=== PATIENT | male | born 1965 ===

== ENCOUNTER 2020-11-09 08:15 | Day surgery (SDC) | payer OTHER, SELFPAY ==
[2020-11-03 12:49] VITALS: BMI 35.4
--- NOTE | 2020-11-08 09:06 | HO.ANESPROP2 ---
Documented by User: Shaista Ramirez 11/08/20 09:07 HPI - Anesthesia Eval Consult details Narrative: 55yo M for Upper Endoscopy and Colon[facility] Past Medical History Medical History Anxiety and depression Asthma Bilateral carpal tunnel syndrome CAD (coronary artery disease) Elevated cholesterol Fibromyalgia Herniated cervical disc Herniated lumbar intervertebral disc HTN (hypertension) Hx of migraine headaches Hx of osteoarthritis Hx of renal calculi Myocardial infarction Sleep apnea Smoker Surgical History Surgical History (Updated 11/03/20 @ 12:39 by Cesia Castro) H/O lithotripsy History of PTCA Hx of tonsillectomy Hx of umbilical hernia repair Social History Social History (Updated 11/03/20 @ 12:48 by Cesia Castro) Smoking Status: Current every day smoker Tobacco Type: Cigarette Cigarettes Per Day: 14 Years Smoked: 38 Advance Directives: No Advance Directives Information Provided: No Advance Directives on File: No Meds Allergies Allergy/AdvReac Type Severity Reaction Status Date / Time No Known Allergies Allergy Unverified 08/12/20 19:02 [No Known Allergies*] naproxen AdvReac Unknown kidney Verified 01/01/20 00:00 problems, hematuria Home Medications Medication Instructions Recorded Confirmed Type albuterol sulfate [ProAir HFA] 2 puff INHALATION Q4-6H PRN 11/03/20 11/03/20 History aspirin [Aspir-81] 81 mg PO DAILY 11/03/20 11/03/20 History ergocalciferol (vitamin D2) 1,250 mcg PO QWEEK 11/03/20 11/03/20 History [Vitamin D2] fluticasone propionate [Flovent 2 inh INHALATION BID 11/03/20 11/03/20 History Diskus] gabapentin 300 mg PO BID 11/03/20 11/03/20 History metoprolol tartrate 100 mg PO BID 11/03/20 11/03/20 History nitroglycerin 0.4 mg SUBLINGUAL Q5M PRN 11/03/20 11/03/20 History omeprazole 20 mg PO DAILY 11/03/20 11/03/20 History oxycodone-acetaminophen [Percocet] 1 tab PO Q6H PRN 11/03/20 11/03/20 History rosuvastatin 40 mg PO BEDTIME 11/03/20 11/03/20 History tamsulosin 0.4 mg PO BEDTIME 11/03/20 11/03/20 History Exam Exam Date and Time: November 08, [id number] Height,Weight and Vital Signs: Height 5 ft 3 in Weight 90.718 kg Assessment and Plan Assessment Anesthesia Assessment: Chart Reviewed Documented by User: Laure Garza 11/09/20 08:37 PMFSH Past Medical History Medical History Anxiety and depression Asthma Bilateral carpal tunnel syndrome CAD (coronary artery disease) Elevated cholesterol Fibromyalgia Herniated cervical disc Herniated lumbar intervertebral disc HTN (hypertension) Hx of migraine headaches Hx of osteoarthritis Hx of renal calculi Myocardial infarction Sleep apnea Smoker Surgical History Surgical History (Updated 11/03/20 @ 12:39 by Cesia Castro) H/O lithotripsy History of PTCA Hx of tonsillectomy Hx of umbilical hernia repair Social History Social History (Updated 11/03/20 @ 12:48 by Cesia Castro) Smoking Status: Current every day smoker Tobacco Type: Cigarette Cigarettes Per Day: 14 Years Smoked: 38 Advance Directives: No Advance Directives Information Provided: No Advance Directives on File: No Meds Allergies Allergy/AdvReac Type Severity Reaction Status Date / Time No Known Allergies Allergy Unverified 08/12/20 19:02 [No Known Allergies*] naproxen AdvReac Unknown kidney Verified 01/01/20 00:00 problems, hematuria Home Medications Medication Instructions Recorded Confirmed Type albuterol sulfate [ProAir HFA] 2 puff INHALATION Q4-6H PRN 11/03/20 11/03/20 History aspirin [Aspir-81] 81 mg PO DAILY 11/03/20 11/03/20 History ergocalciferol (vitamin D2) 1,250 mcg PO QWEEK 11/03/20 11/03/20 History [Vitamin D2] fluticasone propionate [Flovent 2 inh INHALATION BID 11/03/20 11/03/20 History Diskus] gabapentin 300 mg PO BID 11/03/20 11/03/20 History metoprolol tartrate 100 mg PO BID 11/03/20 11/03/20 History nitroglycerin 0.4 mg SUBLINGUAL Q5M PRN 11/03/20 11/03/20 History omeprazole 20 mg PO DAILY 11/03/20 11/03/20 History oxycodone-acetaminophen [Percocet] 1 tab PO Q6H PRN 11/03/20 11/03/20 History rosuvastatin 40 mg PO BEDTIME 11/03/20 11/03/20 History tamsulosin 0.4 mg PO BEDTIME 11/03/20 11/03/20 History Exam Airway Mallampati Class: II (Missing top front tooth) TM Dist: >3cm Neck ROM: Full Heart: RRR Lungs: CTA BL Assessment and Plan Assessment Anesthesia Assessment: Anesthesia Plan Discussed and Chart Reviewed Final Anesthetic Review NPO: Yes ASA Class: III Final Preanesthetic Review: Meds/Allgs Chart Reviewed and Consent Obtained/Reviewed Patient Risk: Intermediate Procedure Risk: Intermediate Anesthetic Plan Anesthetic Plan: MAC: Disposition: Standard PACU
--- NOTE | 2020-11-09 08:45 | MHC.SHP ---
Pre-Procedural Eval Section B Chief Complaint: GERD,SCREENING Details of Present Illness: 55 yo male with breakthrough GERD symptoms not well controlled with routine meds. No anemia Did not do clear liquid prep. Relevant Family History (Specify if Yes): No Relevant Social History: Tobacco Use Present Medications: see Short Stay Collaborative assessment Medical History: Significant History (Obesity, CAD, Hypertension) History of Previous Operations: No relevant previous surgery Allergies: Allergies Allergy/AdvReac Type Severity Reaction Status Date / Time No Known Allergies Allergy Unverified 08/12/20 19:02 [No Known Allergies*] naproxen AdvReac Unknown kidney Verified 01/01/20 00:00 problems, hematuria Review of Systems Sugical H&P ROS: Negative: Constitution, Respiratory, Gastrointestinal and Endocrine and Yes, Specify: Cardiovascular (CAD) Exam Surgical H&P Exam: Normal: Heart, Normal: Lungs and Normal: Extremities and Significant Findings: Abdomen (Moderated Obesity) Plan Diagnosis/Plan: Change (Colon rescheduled--did not follow prep, EGD a GO) Patient has been examined and remains a candidate for the planned procedure--EGD-yes
[2020-11-09 09:01] VITALS: BP 131/72; PULSE 66; RESP 18; TEMP 36.1; O2SAT 96; BMI 35.4
[2020-11-09 09:32] VITALS: BP 96/54; PULSE 70; RESP 14; TEMP 36.8; O2SAT 92
--- NOTE | 2020-11-09 09:32 | PM.OP ---
Brief Operative Note Date of Service: 11/09/20 Pre-op diagnosis: Break through GERD symptoms, Cigarette smoker Post-op diagnosis: other (Hiatal Hernia, erosive gastritis(antral)) Procedure: EGD with bx Implants: none Surgeon: Danna Rdz MD Anesthesia: MAC (MD Greg) Estimated blood loss (mL): 5 Pathology: other (Random Gastric) Condition: stable Disposition: PACU
[2020-11-09 09:37] VITALS: BP 100/50; PULSE 64; RESP 18; O2SAT 94
[2020-11-09 09:48] VITALS: BP 109/64; PULSE 62; RESP 19; TEMP 36.8; O2SAT 93
[2020-11-09 10:09] VITALS: BP 119/68; PULSE 58; RESP 18; O2SAT 94
--- NOTE | 2020-11-09 10:25 | HO.POSTANES ---
Post Anesthesia Evaluation Post Anesthesia Evaluation Vital Signs: Vital Signs Temp Pulse Resp BP Pulse Ox 11/09/20 10:09 58 18 119/68 94 11/09/20 09:48 98.3 F 62 19 109/64 93 11/09/20 09:37 64 18 100/50 L 94 11/09/20 09:32 98.3 F 70 14 96/54 L 92 11/09/20 09:01 97 F 66 18 131/72 96 Anesthesia: Monitored Mental Status: Awake Pain Control: Satisfactory Nausea/Vomiting: None Hydration: Adequate Anesthesia-Related Issues: No Anes. Related Issues
--- NOTE | 2020-11-10 15:52 | OP_ITS ---
SURGEON: Danna Rdz MD INDICATIONS: The patient is a 55-year-old male who presented to our office initially for colon cancer screening. He also stated that he has had chronic acid reflux, heartburn type symptoms. The only medication that used to work for him was ranitidine. He is currently on omeprazole. He says he has breakthrough symptoms despite the use of this. He is a cigarette smoker. As it turns out, he ate solid food as part of his clear liquid prep. So, the colonoscopy will be rescheduled. We will proceed with upper endoscopic evaluation. PROCEDURE PERFORMED: EGD with biopsy. ESTIMATED BLOOD LOSS: Less than 5 mL. COMPLICATIONS: No complications. ANESTHESIA: Monitored. ANESTHESIOLOGIST: Laure Garza MD ASSISTANTS: No human resource assistant. SPECIMENS: Specimens removed; random gastric. PRIMARY CARE PROVIDER: Dr. Grace POSTOPERATIVE DIAGNOSES: Hiatal hernia, erosive gastritis. LOCKSTITCH HEMMER: Danna Rdz MD. CONDITION: Postop, stable. FINDINGS: Video endoscope was introduced without difficulty. It was navigated into the posterior pharynx. There was a significant amount of soft tissue present in the posterior pharynx. I was able to get a quick view of the arytenoid cartilages, which were slightly lipomatous. Vocal cords were clear. Scope easily entered the esophagus. Esophageal mucosa was normal. No erythema was present. No ulcerations. GE junction was clear and distinct; distal tohis is a hiatal hernia. On entering the body and antrum of the stomach, there was some radiation with linear radiation of erythema from the pylorus into the antrum, focal pinpoint erosions were present in several areas. Pylorus was easily traversed. Duodenum and duodenal bulb were endoscopically normal. Periampullary area was visualized on this exam and appeared normal. Scope was withdrawn. Random gastric biopsies were obtained. PLAN: Once histology reviewed from the biopsies, we will discuss further management changes for this patient. Note, he is somewhat at risk with BMI of around 35 for ASHLEE. This must be considered as part of his baseline. I did point out to him that central obesity does play a role in GERD symptoms. This would require focus on weight reduction, which is always a difficult issue especially to discuss around holiday time. OFFICE TO RESCHEDULE COLON AGAIN WITH EMPHASIS TO WHY WE NEED A CLEAR LIQUID PREP. CONSIDER FIT TESTING TO BE SENT. GRAFT OR IMPLANTS: No grafts or implants. MD JUAN Kc/CORRINA / [id number] MTDD
== END 2020-11-09 10:45 | disposition home or self-care (01) ==
PROVIDERS: PCP Internal Medicine Geriatric Medicine; Visit Provider Internal Medicine Gastroenterology
PROC: (CPT 43239; principal; 2020-11-09 09:30)
DX: K29.60 Other gastritis without bleeding (principal); K44.9 Diaphragmatic hernia without obstruction or gangrene; K21.9 Gastro-esophageal reflux disease without esophagitis; Z79.899 Other long term (current) drug therapy; F17.210 Nicotine dependence, cigarettes, uncomplicated
CPT/HCPCS: 43239; 88305; 88342

== ENCOUNTER 2020-12-21 11:52 | Day surgery (SDC) | payer OTHER, SELFPAY ==
[2020-12-15 10:42] VITALS: BMI 35.4
--- NOTE | 2020-12-20 09:42 | HO.ANESPROP2 ---
Documented by User: Shaista Ramirez 12/20/20 10:14 HPI - Anesthesia Eval Consult details Narrative: 55yo M for Colonoscopy s/p EGD with MAC 11/09/20 [facility] [place] Past Medical History Medical History Anxiety and depression Asthma Bilateral carpal tunnel syndrome CAD (coronary artery disease) Elevated cholesterol Fibromyalgia Herniated cervical disc Herniated lumbar intervertebral disc HTN (hypertension) Hx of migraine headaches Hx of osteoarthritis Hx of renal calculi Myocardial infarction Sleep apnea Smoker Surgical History Surgical History H/O lithotripsy History of esophagogastroduodenoscopy (EGD) History of PTCA Hx of tonsillectomy Hx of umbilical hernia repair Social History Social History Are you a primary ocular care technologist to a significant other at home: No Do you presently have visiting nurse or other home services: No Smoking Status: Current every day smoker Tobacco Type: Cigarette Packs Per Day: 0.5 Cigarettes Per Day: 10.0 Years Smoked: 30 Smoked in Last 30 Days: Yes Patient Interested in Nicotine Replacement: No Patient Given Instructions on How to Stop Smoking: Yes Date Education Initiated: 12/15/20 Advance Directives: No Advance Directives Information Provided: No Advance Directives on File: No Recently lost weight without trying: No Narrative Narrative: No recent cardiac info avail. No issues with recent EGD. Meds Allergies Allergy/AdvReac Type Severity Reaction Status Date / Time naproxen AdvReac Intermediate kidney Verified 11/09/20 08:53 problems, hematuria Home Medications Medication Instructions Recorded Confirmed Type Flovent Diskus 2 inh INHALATION BID 11/03/20 12/15/20 History albuterol sulfate [ProAir HFA] 2 puff INHALATION Q4-6H PRN 11/03/20 12/15/20 History aspirin 81 mg PO DAILY 11/03/20 12/15/20 History ergocalciferol (vitamin D2) 1,250 mcg PO QWEEK 11/03/20 12/15/20 History [Vitamin D2] gabapentin 300 mg PO BID 11/03/20 12/15/20 History metoprolol tartrate 100 mg PO BID 11/03/20 12/21/20 History nitroglycerin 0.4 mg SUBLINGUAL Q5M PRN 11/03/20 12/15/20 History omeprazole 20 mg PO DAILY 11/03/20 12/15/20 History oxycodone-acetaminophen [Percocet] 1 tab PO Q6H PRN 11/03/20 12/15/20 History rosuvastatin 40 mg PO BEDTIME 11/03/20 12/15/20 History tamsulosin 0.4 mg PO BEDTIME 11/03/20 12/15/20 History Exam Exam Date and Time: December 20, 2020 0942 Height,Weight and Vital Signs: Height 5 ft 3 in Weight 90.718 kg Assessment and Plan Assessment Anesthesia Assessment: Chart Reviewed Documented by User: Lynette Betancourt 12/21/20 13:02 [facility] [place] Past Medical History Medical History Anxiety and depression Asthma Bilateral carpal tunnel syndrome CAD (coronary artery disease) Elevated cholesterol Fibromyalgia Herniated cervical disc Herniated lumbar intervertebral disc HTN (hypertension) Hx of migraine headaches Hx of osteoarthritis Hx of renal calculi Myocardial infarction Sleep apnea Smoker Surgical History Surgical History H/O lithotripsy History of esophagogastroduodenoscopy (EGD) History of PTCA Hx of tonsillectomy Hx of umbilical hernia repair Social History Social History Are you a primary ocular care technologist to a significant other at home: No Do you presently have visiting nurse or other home services: No Smoking Status: Current every day smoker Tobacco Type: Cigarette Packs Per Day: 0.5 Cigarettes Per Day: 10.0 Years Smoked: 30 Smoked in Last 30 Days: Yes Patient Interested in Nicotine Replacement: No Patient Given Instructions on How to Stop Smoking: Yes Date Education Initiated: 12/15/20 Advance Directives: No Advance Directives Information Provided: No Advance Directives on File: No Recently lost weight without trying: No Meds Allergies Allergy/AdvReac Type Severity Reaction Status Date / Time naproxen AdvReac Intermediate kidney Verified 11/09/20 08:53 problems, hematuria Home Medications Medication Instructions Recorded Confirmed Type Flovent Diskus 2 inh INHALATION BID 11/03/20 12/15/20 History albuterol sulfate [ProAir HFA] 2 puff INHALATION Q4-6H PRN 11/03/20 12/15/20 History aspirin 81 mg PO DAILY 11/03/20 12/15/20 History ergocalciferol (vitamin D2) 1,250 mcg PO QWEEK 11/03/20 12/15/20 History [Vitamin D2] gabapentin 300 mg PO BID 11/03/20 12/15/20 History metoprolol tartrate 100 mg PO BID 11/03/20 12/21/20 History nitroglycerin 0.4 mg SUBLINGUAL Q5M PRN 11/03/20 12/15/20 History omeprazole 20 mg PO DAILY 11/03/20 12/15/20 History oxycodone-acetaminophen [Percocet] 1 tab PO Q6H PRN 11/03/20 12/15/20 History rosuvastatin 40 mg PO BEDTIME 11/03/20 12/15/20 History tamsulosin 0.4 mg PO BEDTIME 11/03/20 12/15/20 History Exam Airway Mallampati Class: II TM Dist: >3cm Neck ROM: Full Heart: RRR Lungs: CTA Assessment and Plan Assessment Anesthesia Assessment: Anesthesia Plan Discussed and Chart Reviewed Final Anesthetic Review NPO: Yes ASA Class: III Final Preanesthetic Review: Meds/Allgs Chart Reviewed, Consent Obtained/Reviewed and Anes Risks/Benef Reviewed Patient Risk: Intermediate Anesthetic Plan Anesthetic Plan: MAC: Disposition: Standard PACU
[2020-12-21 12:12] VITALS: BP 135/90; PULSE 91; RESP 18; TEMP 36.2; O2SAT 95
[2020-12-21] MEDS: Lactated Ringers 1,000 ML 100 ML IVCONT (12:35)
--- NOTE | 2020-12-21 13:09 | MHC.SHP ---
Pre-Procedural Eval Section B Chief Complaint: screening Details of Present Illness: sCREENING Relevant Family History (Specify if Yes): No Relevant Social History: Tobacco Use Present Medications: see Short Stay Collaborative assessment Medical History: Significant History (OBESITY, CAD, HYPERTENSION, GERD) History of Previous Operations: No relevant previous surgery Allergies: Allergies Allergy/AdvReac Type Severity Reaction Status Date / Time naproxen AdvReac Intermediate kidney Verified 11/09/20 08:53 problems, hematuria Review of Systems Sugical H&P ROS: Negative: Constitution, Cardiovascular, Respiratory and Gastrointestinal Exam Surgical H&P Exam: Normal: HEENT, Normal: Heart, Normal: Lungs, Normal: Extremities and Normal: Abdomen Plan Diagnosis/Plan: Unchanged I have reviewed the history and physical and performed a pertinent physical examination on my patient. No changes have occurred unless specified.YES
--- NOTE | 2020-12-21 13:39 | PM.PROC ---
Brief Operative Note Date of procedure: 12/21/20 Pre-op diagnosis: Colon cancer screening Post-op diagnosis: other (Colonic polyp; Internal hemorrhoids) Procedure: COLONOSCOPY WITH EXCISIONAL POLYPECTOMY-COLD BX FORCEPS Anesthesia: MAC (MD BENITO) Surgeon: Danna Rdz Estimated blood loss (mL): 5 Pathology: other (HEPATIC FLEXURE) Condition: stable Disposition: PACU
[2020-12-21 13:43] VITALS: BP 98/49; PULSE 63; RESP 16; TEMP 36.2; O2SAT 96
[2020-12-21 13:59] VITALS: BP 119/67; PULSE 64; RESP 16; TEMP 36.2; O2SAT 97
--- NOTE | 2020-12-24 01:10 | OP_ITS ---
SURGEON: Danna Rdz MD PREOPERATIVE DIAGNOSIS: Colon cancer screenig POSTOPERATIVE DIAGNOSIS: Colon polyp, 1+ internal hemorrhoids with perianal prolapse noted of skin tags. PROCEDURE PERFORMED: Colonoscopy with excisional polypectomies using cold biopsy forceps. ESTIMATED BLOOD LOSS: Less than 10 mL. COMPLICATIONS: No complications. ANESTHESIA: Monitored. ANESTHESIOLOGIST: Lynette Betancourt MD ASSISTANTS: No account assistant. SPECIMENS: Specimens removed, hepatic flexure polyp. PRIMARY CARE PROVIDER: Dr. Grace SHIPPING/RECEIVING MANAGER: Dr. Rdz. CONDITION: Postop, stable. FINDINGS: Digital rectal exam, prostate was normal to digital palpation. Video colonoscope was introduced without difficulty, navigated into the rectosigmoid area. The prep was fair to good in some areas. Scope was slowly advanced through sigmoid, descending, transverse colon. In the hepatic flexure, polyp was identified. It was removed excisionally. Scope traversed into the cecum. Appendiceal orifice was seen. Ileocecal valve was well seen. No mucosal abnormalities were appreciated. Slow withdrawal of scope, good rotational views, no additional lesions were seen, a slight prolapse at the anorectal verge. There were 1+ internal hemorrhoids noted. PLAN AND CURRENT RECOMMENDATIONS: Repeat asymptomatic screening in this patient will be 5 years. I would suggest the 2-day prep unless other options are available at that time. GRAFT OR IMPLANTS: No grafts or implants. Danna Rdz MD MEN/MODL / [id number] MTDD
== END 2020-12-21 14:50 ==
LOC: HO.SSS 11:53
PROVIDERS: PCP Internal Medicine Geriatric Medicine; Visit Provider Internal Medicine Gastroenterology
PROC: 0DJD8ZZ Inspection of Lower Intestinal Tract, Via Natural or Artificial Opening Endoscopic (ICD-10-PCS; CPT 45378; principal; 2020-12-21 11:30)
DX: Z12.11 Encounter for screening for malignant neoplasm of colon (principal); K63.5 Polyp of colon; K64.8 Other hemorrhoids; K62.1 Rectal polyp; K64.4 Residual hemorrhoidal skin tags; I10 Essential (primary) hypertension; J45.909 Unspecified asthma, uncomplicated; G47.30 Sleep apnea, unspecified; I25.10 Atherosclerotic heart disease of native coronary artery without angina pectoris; Z98.61 Coronary angioplasty status; I25.2 Old myocardial infarction; F17.210 Nicotine dependence, cigarettes, uncomplicated; Z79.82 Long term (current) use of aspirin; Z79.51 Long term (current) use of inhaled steroids; Z79.899 Other long term (current) drug therapy; Z88.8 Allergy status to other drugs, medicaments and biological substances
CPT/HCPCS: 45380; 88305

== ENCOUNTER → 2021-01-18 13:01 | Outpatient (BNVA) | payer OTHER, SELFPAY | PROVIDERS: PCP Internal Medicine Geriatric Medicine; Visit Provider Physician Assistant ==

== ENCOUNTER → 2022-05-04 13:01 | Outpatient (BNVA) | payer MEDICAID, SELFPAY | PROVIDERS: PCP Internal Medicine Geriatric Medicine; Referring Provider Internal Medicine Geriatric Medicine; Visit Provider Internal Medicine Cardiovascular Disease | DX: R07.9 Chest pain, unspecified (principal); I25.10 Atherosclerotic heart disease of native coronary artery without angina pectoris; Z72.0 Tobacco use | CPT/HCPCS: 93005; 99202 ==

== ENCOUNTER → 2022-06-07 08:50 | Outpatient (REF) | payer MEDICAID, SELFPAY ==
--- NOTE | ~2022-06-07 | NM_ITS ---
Myocardial perfusion study Indication: Chest pain to evaluate for myocardial ischemia Technique: The patient was brought in for a Lexiscan perfusion study on 06/07/2022. Patient performed low-level exercise and was injected 0.4 mg of Lexiscan intravenously. Within a minute of injection, 35 mCi of sestamibi was given intravenously. Images were obtained using the SPECT gamma camera interlaced with the gating device. Images were obtained in supine position. Resting perfusion study was performed on 06/08/2002. Patient was administered 35 mCi of sestamibi intravenously at rest. Images were then obtained in supine position. Images obtained with and without CT attenuation. Total DLP 118 mGy-cm. Images were processed with the software and compared side to side in short axis, horizontal long axis and vertical long axis views. Findings: The stress perfusion study showed non attenuated images show mildly reduced uptake in the basal inferior wall of the LV myocardium. Remainder of the LV myocardium is normally perfused. Attenuation corrected images show minimally reduced uptake in the apex of the LV myocardium.. The gated study shows normal LV systolic function with calculated LVEF of 66%. LV cavity is normal in size. The gated study shows normal systolic wall thickening and contraction of segments. Resting study shows no change in perfusion pattern compared to stress perfusion study. Gating at rest reveals normal systolic wall motion with ejection fraction at greater than 60%. The findings are consistent with normal myocardial perfusion. NM/NM cardiolite stress test Impression: 1. Myocardial perfusion imaging study shows normal myocardial perfusion 2. Gated LVEF is 66% 3. Transient ischemic dilatation not present EKG is nondiagnostic for ischemia
--- NOTE | 2022-06-07 09:00 | CA_ITS ---
Acquisition Time: 2022-06-07 09:12:49 Total Exercise Time: 00:06:27 Test Indications: Chest Pain Medications: SEE H Protocol: MOD JULIO C Max HR: 095 BPM 57% of Pred: 166 BPM Max BP: 124/070 mmHG Max Work Load: 4.5 METS Started modified stress test using Julio C protocol, however patient walked for 6 minutes and 27 sec and his HR was not increasing above 50 % and pt c/o R hip pain. Test changed to Lexiscan. Pt tolerated well, denies any anginal sx. EKG with no arrhythmias, non-diagnostic for ischemia. Nuclear images to follow. Normotensive response to test. Test reviewed with Dr. Rosales Referred By: Cornelius Chavez Overread By: Kenia Butler NP
== END ==
LOC: HO.CARD 08:50
PROVIDERS: PCP Internal Medicine Geriatric Medicine; Visit Provider Internal Medicine Cardiovascular Disease
DX: R07.9 Chest pain, unspecified (principal); I25.10 Atherosclerotic heart disease of native coronary artery without angina pectoris
CPT/HCPCS: 78452; 93017; A9500; J0280; J2785

== ENCOUNTER 2022-06-28 12:07 | Outpatient (REF) | payer MEDICAID, SELFPAY ==
[2022-06-28 12:32] LABS: MANUAL DIFF FLAG NO
[2022-06-28 12:38] LABS: Basophils Absolute Auto 0.1 X10*3/uL (0.0-0.2); Basophils Percent Auto 0.5 % (0-2); Eosinophils Absolute Auto 0.2 X10*3/uL (0.0-0.4); Eosinophils Percent Auto 2.3 % (0-4); Hematocrit 42.4 % (42.0-52.0); Hemoglobin 13.9 g/dl (14.0-18.0); Imm Gran Abs Auto 0.04 X10*3/uL (0.00-0.03); Imm Gran Pct Auto 0.4 % (0.0-0.4); Lymphocytes Absolute Auto 2.4 X10*3/uL (1.2-4.9); Mean Corpuscular HGB Conc 32.8 g/dl (31.0-36.0); Mean Corpuscular Hemoglobin 29.2 pg (27.0-33.0); Mean Corpuscular Volume 89.1 fL (80.0-98.0); Mean Platelet Volume 10.7 fL (9.4-12.4); Monocytes Absolute Auto 0.7 X10*3/uL (0.1-1.2); Monocytes Percent Auto 7.5 % (2-11); Neutrophils Absolute Auto 6.1 x10*3/uL (2.0-8.3); Neutrophils Percent Auto 64.3 % (45-73); Platelet Count 283 X10*3/uL (160-400); Red Blood Count 4.76 X10*6/uL (4.60-5.80); Red Cell Distribution Width 14.1 % (11.0-16.0); White Blood Count 9.4 X10*3/uL (4.8-10.8)
[2022-06-28 13:57] LABS: Anion Gap 11 (12-20); Blood Urea Nitrogen 13 mg/dL (9-16); Calcium 8.8 mg/dL (8.4-10.2); Carbon Dioxide 21 mmol/L (22-29); Chloride 111 mmol/L (96-108); Estimated Glomerular Filt Rate > 60; Glucose Random 105 mg/dL (60-115); Potassium 4.2 mmol/L (3.3-5.1); Sodium 139 mmol/L (135-145)
[2022-06-28 14:10] LABS: Estimated Average Glucose 114 mg/dL; Hemoglobin A1c % 5.6 %
== END 2022-06-28 12:08 | disposition home or self-care (01) ==
LOC: HO.LAB 12:07
PROVIDERS: Absent Provider Internal Medicine Geriatric Medicine; PCP Internal Medicine Geriatric Medicine; Visit Provider Internal Medicine Cardiovascular Disease
DX: R07.9 Chest pain, unspecified (principal); I25.10 Atherosclerotic heart disease of native coronary artery without angina pectoris; R73.03 Prediabetes
CPT/HCPCS: 36415; 80048; 83036; 85025

== ENCOUNTER 2022-07-14 15:53 | Outpatient (REF) | payer MEDICAID, SELFPAY ==
[2022-07-14 16:34] LABS: INTERNATIONAL NORM RATIO 0.9 (0.9-1.1); Prothrombin Time 10.6 SEC (10.0-13.1)
== END 2022-07-14 15:54 | disposition home or self-care (01) ==
LOC: HO.LAB 15:53
PROVIDERS: PCP Internal Medicine Geriatric Medicine; Visit Provider Internal Medicine Cardiovascular Disease
DX: R07.9 Chest pain, unspecified (principal); I25.10 Atherosclerotic heart disease of native coronary artery without angina pectoris
CPT/HCPCS: 36415; 85610

== ENCOUNTER → 2022-07-26 13:41 | Outpatient (BNVA) | payer MEDICAID, SELFPAY ==
[2021-07-12 09:11] VITALS: BP 100/62
== END ==
PROVIDERS: PCP Internal Medicine Geriatric Medicine; Referring Provider Internal Medicine Geriatric Medicine; Visit Provider Internal Medicine Cardiovascular Disease
DX: I20.8 Other forms of angina pectoris (principal); F17.210 Nicotine dependence, cigarettes, uncomplicated; Z79.82 Long term (current) use of aspirin
CPT/HCPCS: 99212

== ENCOUNTER → 2022-11-22 10:55 | Outpatient (BNVA) | payer MEDICAID, SELFPAY | PROVIDERS: PCP Internal Medicine Geriatric Medicine; Referring Provider Internal Medicine Geriatric Medicine; Visit Provider Internal Medicine Cardiovascular Disease | DX: I25.118 Atherosclerotic heart disease of native coronary artery with other forms of angina pectoris (principal); F17.210 Nicotine dependence, cigarettes, uncomplicated; Z79.02 Long term (current) use of antithrombotics/antiplatelets; Z79.82 Long term (current) use of aspirin | CPT/HCPCS: 99212 ==

== ENCOUNTER 2023-04-25 09:32 | Outpatient (REF) | payer MEDICAID, SELFPAY ==
--- NOTE | ~2023-04-25 | XR_ITS ---
EXAMINATION: XR CERVICAL SPINE CLINICAL INFORMATION: Neck pain and radiculopathy COMPARISON: None available. TECHNIQUE: 6 views of the cervical spine, inclusive of bilateral oblique and swimmer's views, were obtained. FINDINGS: Bone alignment is normal. No fracture or dislocation. Degenerative spondylosis from C3-C4 to C6-C7. Normal disc spaces. Right-sided neuroforaminal narrowing from bony osteophyte from C4-C5 to C6-C7. Left-sided neuroforaminal narrowing from bony osteophyte from C3-C4 to C5 6. Prevertebral soft tissues are normal. XR/XR cervical spine 5V IMPRESSION: Multilevel degenerative changes.
== END 2023-04-25 09:33 | disposition home or self-care (01) ==
LOC: HO.XRAY 09:32
PROVIDERS: PCP Internal Medicine Geriatric Medicine; Visit Provider Internal Medicine Geriatric Medicine
DX: R20.2 Paresthesia of skin (principal); M54.2 Cervicalgia
CPT/HCPCS: 72050

== ENCOUNTER → 2023-05-24 15:31 | Outpatient (BNVA) | payer MEDICAID, SELFPAY ==
[2021-07-12 09:11] VITALS: BP 100/62
== END ==
PROVIDERS: PCP Internal Medicine Geriatric Medicine; Visit Provider Internal Medicine Cardiovascular Disease
DX: I20.8 Other forms of angina pectoris (principal); Z72.0 Tobacco use
CPT/HCPCS: 99212

== ENCOUNTER 2023-05-25 14:47 | Outpatient (REF) | payer MEDICAID, SELFPAY ==
--- NOTE | ~2023-05-25 | MR_ITS ---
EXAMINATION: MR LUMBAR SPINE WITHOUT CONTRAST CLINICAL INFORMATION: Low back pain. COMPARISON: None available. TECHNIQUE: Multiplanar, multisequence imaging was obtained. FINDINGS: VERTEBRAL BODIES AND PARASPINAL STRUCTURES: The marrow signal is within normal limits. There is [id number] disc space narrowing with anterior endplate spurring partially visualized on sagittal imaging at the T10-T11 and T11-T12 levels. Left posterolateral disc bulge with facet arthropathy at the T10-T11 level results in significant left foraminal encroachment, only partially visualized. There are no compression fractures or subluxations. The paraspinal soft tissues appear normal. There are mild degenerative changes of the sacroiliac joints bilaterally. CONUS MEDULLARIS AND CAUDA EQUINE: The distal cord, conus tip, and cauda equina nerve roots appear normal. SPINAL LEVELS: L1-L2: Mild posterior disc bulge and mild facet arthropathy. Bulging disc mildly impresses upon the ventral thecal sac. No central canal stenosis or foraminal narrowing. L2-L3: Left posterolateral disc protrusion visible with mild impression upon the exiting left L2 nerve root. No central canal stenosis. L3-L4: Broad-based disc bulge without central canal stenosis. Bulging disc posterolaterally on both sides impresses upon the exiting L3 nerve roots. Moderate right and [id number] left foraminal narrowing. L4-L5: Generalized disc bulge and mild facet arthropathy without central canal stenosis. Bulging disc contributes to moderate bilateral foraminal encroachment and mild impression upon the exiting L4 nerve roots. L5-S1: Mild disc bulge with a posterior annular fissure which mildly impresses upon the right S1 nerve root. Mild facet arthropathy. No central canal stenosis or foraminal narrowing. MR/MR lumbar spine wo con IMPRESSION: 1. Left posterolateral disc protrusion at the L2-L3 level with mild impression upon the left L2 nerve root. 2. Broad-based disc bulge at the L3-L4 level with bulging disc impressing upon both exiting L3 nerve roots. Moderate right foraminal narrowing. 3. Disc bulge at the L4-L5 level with moderate bilateral foraminal encroachment and mild impression upon the exiting L4 nerve roots. 4. Posterior annular fissure at the L5-S1 level mildly impressing upon the right S1 nerve root. 5. Moderate degenerative disc disease at the T10-T11 and T11-T12 levels with significant left foraminal encroachment at the T10-T11 level.
== END 2023-05-25 14:48 | disposition home or self-care (01) ==
LOC: HO.MRI 14:47
PROVIDERS: PCP Internal Medicine Geriatric Medicine; Visit Provider Internal Medicine Geriatric Medicine
DX: M54.50 Low back pain, unspecified (principal); M79.605 Pain in left leg
CPT/HCPCS: 72148

== ENCOUNTER 2023-06-06 14:14 | Outpatient (AMB) | payer MEDICAID, SELFPAY ==
--- NOTE | 2023-06-06 14:39 | MHC.OFFVIS ---
Intake Vital Signs 06/06/23 14:40 Height 5 ft 3 in Weight 200 lb 9.93 oz BMI 35.5 BP 130/80 Blood Pressure Location Rt brachial Position Sitting Pulse 88 Pulse Source Pulse Oximeter Pulse Oximetry (%) 98 Oxygen Delivery Method Room Air Intake Visit Reasons: Cough Intake Note: New patient today with family hx of lung cancer in mother who would like to be checked. Patient is a long time smoker of 40+ years. He does note a productive cough for white to yellow sputum often. He also notes SOB with walking up stairs or carrying heavy things.Patient also reports he snores per his . Valve Pipe Irrigator Required: No Tool Tender: Tool Tender offered & declined Accompanied by: Self / Same As Patient Allergies naproxen Adverse Reaction (Intermediate, Verified 06/06/23 14:52) kidney problems, hematuria Medication List - Last Reconciled 06/06/23 by Valerie Berumen LPN amlodipine 2.5 mg PO DAILY aspirin 81 mg PO DAILY atorvastatin 80 mg PO DAILY baclofen 10 mg PO BID clopidogrel 75 mg PO DAILY ergocalciferol (vitamin D2) (Vitamin D2) 1,250 mcg PO QWEEK ezetimibe 10 mg PO QAM fluticasone propionate 100 mcg/actuation (Flovent Diskus) 2 inhalations inhalation BID gabapentin 300 mg PO BID hydrocortisone 2.5% (Proctozone-HC) 1 appl [place] BID PRN isosorbide mononitrate ER 60 mg PO DAILY metoprolol tartrate 100 mg PO BID 90 days naloxone 4 mg/actuation 0 sprays intranasal nicotine (polacrilex) 4 mg PO nitroglycerin 0.4 mg sublingual Q5M PRN oxycodone-acetaminophen 5-325 mg (Percocet) 1 tab PO Q6H PRN pantoprazole 20 mg PO DAILY simethicone (Gas Relief (simethicone)) 125 mg PO TID-QID PRN tamsulosin 0.4 mg PO BEDTIME HPI Cough HPI Details Trenton is a pleasant 57 year male current 1/2 ppd smoker with a 40+ pack year history, with underlying asthma and CAD s/p stents followed by cardiology. He presents today for pulmonary evaluation. He is currently on Flovent and albuterol MDI with suboptimal effect. He reports intermittent wheezing, dyspnea on exertion and nonproductive cough. He did have childhood asthma and denies any intubations. He also reports daytime somnolence, loud snoring and paroxysmal nocturnal dyspnea. He denies prior sleep study.His mother had lung cancer, smoker, and sisters with asthma. He denies any environmental allergies. 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 [facility] Medical History Acid reflux Anxiety and depression Asthma Bilateral carpal tunnel syndrome CAD (coronary artery disease) Elevated cholesterol Fibromyalgia Hemorrhoids Herniated cervical disc Herniated lumbar intervertebral disc HTN (hypertension) Hx of migraine headaches Hx of osteoarthritis Hx of renal calculi Myocardial infarction Sleep apnea Smoker Surgical History H/O lithotripsy History of cardiac cath History of esophagogastroduodenoscopy (EGD) History of PTCA Hx of tonsillectomy Hx of umbilical hernia repair Family History Mother Lung cancer Father Prostate cancer Social History (Updated 06/06/23 @ 14:55 by Valerie Berumen LPN) Household Members: Significant Other Are you a primary wound care specialist to a significant other at home: No Do you presently have visiting nurse or other home services: No Alcohol intake: current Alcohol intake frequency: holidays/special occasions only Patient Tobacco Use Status: Current everyday Tobacco user Tobacco use type: Cigarette Cigarette Packs Per Day: 0.5 Cigarettes Per Day: 10.0 Years Smoked: 30 +/- Current occupational status: employed 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 Review of Systems Const Denies chills, Denies excessive sweating, Denies fever(s), Denies headache(s) and Denies night sweats Eyes Denies dry eyes, Denies irritation and Denies itchy eyes ENT Reports Normal hearing present, Denies headache(s), Denies nasal congestion, Denies nasal discharge, Denies post nasal drip and Denies sore throat Card Denies chest pain, Denies chest pain at rest, Denies chest pain with activity, Denies claudication, Denies leg edema and Denies orthopnea Resp Denies excessive phlegm production, Denies pain on inspiration, Denies pain with cough and Denies stridor Musc Denies myalgias Neuro Reports Normal hearing present and Denies headache(s) Endo Denies excessive sweating Lino/Lymph Denies lymphadenopathy Aller/Immun Denies itchy eyes and Denies seasonal rhinorrhea Physical Exam Vital Signs: Last Vital Signs Pulse 88 06/06/23 14:40 BP 130/80 06/06/23 14:40 Pulse Ox 98 06/06/23 14:40 Oxygen Delivery Method Room Air 06/06/23 14:40 BMI result Body Mass Index 35.5 Const General: cooperative, healthy appearing, comfortable, no acute distress, well developed and alert Nutritional Appearance: obese Orientation/consciousness: patient oriented x3 Limitations: no limitations HEENT Head: Yes normal to inspection, Yes normocephalic and Yes atraumatic Ears: hearing grossly normal bilaterally and external ears normal Eyes General: appearance normal, both eyes and all related structures Eyelids: Yes eyelids normal Sclerae: sclerae normal EOM: EOMs intact bilaterally Neck Neck: Yes normal visual inspection and Yes no lymphadenopathy Lymphatic: no lymphadenopathy noted Chest Chest palpation & inspection: normal inspection of the chest Resp Effort & Inspection: normal respiratory effort, able to speak in complete sentences, no audible wheezes, no cough, no stridor, not tachypneic, no tripod positioning and no use of accessory muscles Auscultation: clear to auscultation bilaterally Cardio Jugular venous distension: no JVD Rate: regular rate Rhythm: regular rhythm Skin Other: warm, dry General skin exam: no rashes or lesions noted Neuro General: patient oriented x3 Cranial nerves: Yes Normal hearing present Cognition (Neuro): normal cognition Gait exam (Neuro): Normal gait present Extrem General: Yes normal to inspection, Yes capillary refill normal, Yes no clubbing, cyanosis or edema and Yes no pedal edema Psych Appearance: grossly normal and well kempt Speech and movement: Normal speech and movement present and Clear speech present Affect: normal affect Attitude: cooperative Thought process: Normal thought process present Thought content: Normal thought content present Insight: Good insight present (Psych) Judgement: Good judgement present (Psych) Assessment & Plan Assessment & Plan (1) COPD (chronic obstructive pulmonary disease): Code(s): J44.9 - Chronic obstructive pulmonary disease, unspecified (2) Tobacco abuse: Code(s): Z72.0 - Tobacco use (3) Daytime somnolence: Code(s): R40.0 - Somnolence Plan Trenton's symptoms are consistent with asthma/COPD given his smoking history. Unknown severity, will send for PFT and chest CT. Will switch Flovent to ICS/LABA and send in albuterol PRN. Inhaler technique reviewed. Patient with symptoms consistent with sleep apnea, PND, loud snoring and daytime somnolence, will send for home sleep study to evaluate. All questions were answered and patient in agreement of plan. Will follow up to review results. Orders: Orders PFT pulmonary function test Today J44.9 - Chronic obstructive pulmonary disease, unspecified CT chest wo IV con Today J44.9 - Chronic obstructive pulmonary disease, unspecified, Z72.0 - Tobacco use RT home sleep study Today R06.83 - Snoring, R40.0 - Somnolence Medications: New fluticasone propion-salmeterol 115-21 mcg/actuation (Advair HFA) 2 puffs inhalation Q12H 12 grams 3RF levalbuterol tartrate 45 mcg/actuation 1 puff inhalation Q4-6H PRN 15 grams 3RF shortness of breath Coding Level of Care Code New Pt Level 4 (96528) Diagnoses COPD (chronic obstructive pulmonary disease) J44.9 Tobacco abuse Z72.0 Daytime somnolence R40.0
[2023-06-06 14:40] VITALS: BP 130/80; PULSE 88; O2SAT 98; BMI 35.5
== END 2023-06-06 15:15 | disposition home or self-care (01) ==
PROVIDERS: PCP Internal Medicine Geriatric Medicine; Visit Provider Nurse Practitioner Family
DX: J44.9 Chronic obstructive pulmonary disease, unspecified (principal); Z72.0 Tobacco use; R40.0 Somnolence
CPT/HCPCS: 99204

== ENCOUNTER → 2023-06-06 14:14 | Outpatient (BNVA) | payer MEDICAID, SELFPAY ==
[2021-07-12 09:11] VITALS: BP 100/62
== END ==
PROVIDERS: PCP Internal Medicine Geriatric Medicine; Visit Provider Nurse Practitioner Family
DX: J44.9 Chronic obstructive pulmonary disease, unspecified (principal); R06.83 Snoring; R40.0 Somnolence; Z72.0 Tobacco use; Z98.890 Other specified postprocedural states; Z95.5 Presence of coronary angioplasty implant and graft; Z80.1 Family history of malignant neoplasm of trachea, bronchus and lung
CPT/HCPCS: 99204

== ENCOUNTER 2023-06-13 13:11 | Outpatient (REF) | payer MEDICAID, SELFPAY ==
--- NOTE | 2023-06-13 14:11 | PFT_ITS ---
FLOWS: 1. FEV1 76% of predicted at 2.19 L. 2. FVC 72% of predicted at 2.70 L. 3. FEV1 to FVC ratio of 0.81. 4. No bronchodilator response. LUNG VOLUMES: 1. Total lung capacity 85% of predicted at 4.76 L. 2. Residual volume 115% of predicted at 2.05 L. 3. Slow vital capacity 71% of predicted at 2.71 L. 4. Expiratory reserve volume 52% of predicted at 0.52 L. 5. Diffusion capacity is normal. IMPRESSION: No obstructive or restrictive ventilatory defect. No bronchodilator response. Decreased expiratory reserve volume suggests extrathoracic restriction likely secondary to abdominal obesity. Javier Silver MD AP/MODL / [id number]
== END 2023-06-13 13:12 | disposition home or self-care (01) ==
LOC: HO.RESP 13:11
PROVIDERS: PCP Internal Medicine Geriatric Medicine; Visit Provider Nurse Practitioner Family
DX: J44.9 Chronic obstructive pulmonary disease, unspecified (principal)
CPT/HCPCS: 94060; 94727; 94729

== ENCOUNTER → 2023-06-13 14:11 | Outpatient (BNV) | payer MEDICAID, SELFPAY | PROVIDERS: PCP Internal Medicine Geriatric Medicine; Visit Provider Internal Medicine Pulmonary Disease | DX: J44.9 Chronic obstructive pulmonary disease, unspecified (principal) | CPT/HCPCS: 94060; 94727; 94729 ==

== ENCOUNTER 2023-07-03 14:34 | Outpatient (REF) | payer MEDICAID, SELFPAY ==
--- NOTE | ~2023-07-03 | CT_ITS ---
EXAMINATION: CT CHEST WITHOUT CONTRAST CLINICAL INFORMATION: COPD COMPARISON: None available. TECHNIQUE: Multidetector volumetric CT imaging of the chest was done. Axial MIP volume rendering provided. Sagittal and coronal reformatted images were obtained. This CT examination was performed using dose optimization techniques as appropriate, variously including the following: *Automated exposure control *Adjustment of mA and/or kV according to patient size (this includes techniques or standardized protocols for targeted exams where dose is matched to indication/reason for exam; i.e. extremities or head) *Use of iterative reconstruction technique DLP: 224 mGy-cm FINDINGS: HOT DIP TINNING SUPERVISOR: Unremarkable LUNGS: There is centrilobular emphysema with some pleural cystic spaces seen multiple apical 0.2 - 0.5 cm lung nodules seen seen bilaterally with the largest in the left upper lobe posterior image 37/203 measured 0.3 cm and the largest on the right on image 29 measured 0.5 cm. There is 6 cm bleb seen in the right middle lobe paracardiac. Central airways are patent MEDIASTINUM: The mediastinum is normal. CORONARY ARTERY CALCIFICATION: Heavily calcified coronary arteries present. PLEURA: There is no pleural effusion. No pleural mass or thickening. AXILLA: No lymphadenopathy. UPPER ABDOMEN: Unremarkable. OSSEOUS STRUCTURES: Unremarkable. CT/CT chest wo IV con IMPRESSION: 1. Centrilobular emphysema and multiple small lung nodules. 2. Heavily calcified coronary arteries. Fleischner guidelines were followed.
== END 2023-07-03 14:35 | disposition home or self-care (01) ==
LOC: HO.CT 14:34
PROVIDERS: PCP Internal Medicine Geriatric Medicine; Visit Provider Nurse Practitioner Family
DX: J44.9 Chronic obstructive pulmonary disease, unspecified (principal); Z72.0 Tobacco use
CPT/HCPCS: 71250

== ENCOUNTER → 2023-07-12 14:32 | Outpatient (REF) | payer MEDICAID, SELFPAY | LOC: HO.SL 14:32 | PROVIDERS: PCP Internal Medicine Geriatric Medicine; Visit Provider Nurse Practitioner Family | DX: G47.33 Obstructive sleep apnea (adult) (pediatric) (principal); R40.0 Somnolence; R06.83 Snoring | CPT/HCPCS: 95806 ==

== ENCOUNTER → 2023-07-12 14:43 | Outpatient (BNV) | payer MEDICAID, SELFPAY ==
[2021-07-12 09:11] VITALS: BP 100/62
== END ==
PROVIDERS: PCP Internal Medicine Geriatric Medicine; Visit Provider Internal Medicine
DX: G47.33 Obstructive sleep apnea (adult) (pediatric) (principal)
CPT/HCPCS: 95806

== ENCOUNTER 2023-07-25 13:45 | Outpatient (AMB) | payer MEDICAID, SELFPAY ==
[2023-07-25 14:29] VITALS: BP 124/72; PULSE 64; O2SAT 96; BMI 35.7
--- NOTE | 2023-07-25 14:29 | A.OFFVIS_ITS ---
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 Required: No Geodetic Survey Director: Geodetic Survey Director offered & declined Accompanied by: Self / Same As Patient Allergies naproxen Adverse Reaction (Intermediate, Verified 07/25/23 14:33) kidney problems, hematuria Medication List - Last Reconciled 07/25/23 by Valerie Berumen LPN amlodipine 2.5 mg PO DAILY aspirin 81 mg PO DAILY atorvastatin 80 mg PO DAILY baclofen 10 mg PO BID clopidogrel 75 mg PO DAILY ergocalciferol (vitamin D2) (Vitamin D2) 1,250 mcg PO QWEEK ezetimibe 10 mg PO QAM fluticasone propion-salmeterol 115-21 mcg/actuation (Advair HFA) 2 puffs inhalation Q12H fluticasone propionate 100 mcg/actuation (Flovent Diskus) 2 inhalations inhalation BID gabapentin 300 mg PO BID hydrocortisone 2.5% (Proctozone-HC) 1 appl [place] BID PRN isosorbide mononitrate ER 60 mg PO DAILY levalbuterol tartrate 45 mcg/actuation 1 puff inhalation Q4-6H PRN metoprolol tartrate 100 mg PO BID 90 days naloxone 4 mg/actuation 0 sprays intranasal nicotine (polacrilex) 4 mg PO nitroglycerin 0.4 mg sublingual Q5M PRN oxycodone-acetaminophen 5-325 mg (Percocet) 1 tab PO Q6H PRN pantoprazole 20 mg PO DAILY simethicone (Gas Relief (simethicone)) 125 mg PO TID-QID PRN tamsulosin 0.4 mg PO BEDTIME HPI Cough HPI Details Trenton is a pleasant 57 year male current 1/2 ppd smoker with a 40+ pack year history, with underlying asthma/COPD overlap and CAD s/p stents followed by cardiology. At the last visit he was switched from Flovent to Advair HFA with significant improvements in his dyspnea and cough. He reports nasal congestion that has been most troublesome. He denies any use of nasal sprays. Today he presents to review results of PFT, chest CT and home sleep study. PFSH Medical History Acid reflux Anxiety and depression Asthma Bilateral carpal tunnel syndrome CAD (coronary artery disease) Elevated cholesterol Fibromyalgia Hemorrhoids Herniated cervical disc Herniated lumbar intervertebral disc HTN (hypertension) Hx of migraine headaches Hx of osteoarthritis Hx of renal calculi Myocardial infarction Sleep apnea Smoker Surgical History H/O lithotripsy History of cardiac cath History of esophagogastroduodenoscopy (EGD) History of PTCA Hx of tonsillectomy Hx of umbilical hernia repair Family History Mother Lung cancer Father Prostate cancer Social History (Updated 07/25/23 @ 14:35 by Valerie Berumen LPN) Household Members: Significant Other Are you a primary wound care specialist to a significant other at home: No Do you presently have visiting nurse or other home services: No Alcohol intake: current Alcohol intake frequency: holidays/special occasions only Patient Tobacco Use Status: Current everyday Tobacco user Tobacco use type: Cigarette Cigarette Packs Per Day: 0.5 Cigarettes Per Day: 10.0 Years Smoked: 30 +/- Current occupational status: employed 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 Review of Systems Const Denies chills, Denies excessive sweating, Denies fever(s), Denies headache(s) and Denies night sweats Eyes Denies dry eyes, Denies irritation and Denies itchy eyes ENT Reports Normal hearing present, Denies headache(s), Denies nasal congestion, Denies nasal discharge, Denies post nasal drip and Denies sore throat Card Denies chest pain, Denies chest pain at rest, Denies chest pain with activity, Denies claudication, Denies leg edema and Denies orthopnea Resp Denies excessive phlegm production, Denies pain on inspiration, Denies pain with cough and Denies stridor Musc Denies myalgias Neuro Reports Normal hearing present and Denies headache(s) Endo Denies excessive sweating Lino/Lymph Denies lymphadenopathy Aller/Immun Denies itchy eyes and Denies seasonal rhinorrhea Physical Exam Vital Signs: Last Vital Signs Pulse 64 07/25/23 14:29 BP 124/72 07/25/23 14:29 Pulse Ox 96 07/25/23 14:29 Oxygen Delivery Method Room Air 07/25/23 14:29 BMI result Body Mass Index 35.7 Const General: cooperative, healthy appearing, comfortable, no acute distress, well developed and alert Nutritional Appearance: obese Orientation/consciousness: patient oriented x3 Limitations: no limitations HEENT Head: Yes normal to inspection, Yes normocephalic and Yes atraumatic Ears: hearing grossly normal bilaterally and external ears normal Eyes General: appearance normal, both eyes and all related structures Eyelids: Yes eyelids normal Sclerae: sclerae normal EOM: EOMs intact bilaterally Neck Neck: Yes normal visual inspection and Yes no lymphadenopathy Lymphatic: no lymphadenopathy noted Chest Chest palpation & inspection: normal inspection of the chest Resp Effort & Inspection: normal respiratory effort, able to speak in complete sentences, no audible wheezes, no cough, no stridor, not tachypneic, no tripod positioning and no use of accessory muscles Auscultation: clear to auscultation bilaterally Cardio Jugular venous distension: no JVD Rate: regular rate Rhythm: regular rhythm Skin Other: warm, dry General skin exam: no rashes or lesions noted Neuro General: patient oriented x3 Cranial nerves: Yes Normal hearing present Cognition (Neuro): normal cognition Gait exam (Neuro): Normal gait present Extrem General: Yes normal to inspection, Yes capillary refill normal, Yes no clubbing, cyanosis or edema and Yes no pedal edema Psych Appearance: grossly normal and well kempt Speech and movement: Normal speech and movement present and Clear speech present Affect: normal affect Attitude: cooperative Thought process: Normal thought process present Thought content: Normal thought content present Insight: Good insight present (Psych) Judgement: Good judgement present (Psych) Results Reviewed Results Reviewed: [address] [address] [address] Scan Report Signed Patient: Trenton Bejarano MR#: [id number] : 1965 Acct:[id number] Age/Sex: 57 / M ADM Date: 07/03/23 Loc: HO.CT Attending Dr: Lisa Middleton NP Ordering Physician: Lisa Middleton NP Date of Service: 07/03/23 Procedure(s): CT chest wo IV con Accession Number(s): [id number] cc: Lisa Middleton NP~ EXAMINATION: CT CHEST WITHOUT CONTRAST CLINICAL INFORMATION: COPD? COMPARISON: None available. TECHNIQUE: Multidetector volumetric CT imaging of the chest was done. Axial MIP volume rendering provided. Sagittal and coronal reformatted images were obtained.? This CT examination was performed using dose optimization techniques as appropriate, variously including the following: *Automated exposure control *Adjustment of mA and/or kV according to patient size (this includes techniques or standardized protocols for targeted exams where dose is matched to indication/reason for exam; i.e. extremities or head) *Use of iterative reconstruction technique DLP: 224 mGy-cm FINDINGS: SIGNAL REPAIRER: Unremarkable LUNGS: There is centrilobular emphysema with some pleural cystic spaces seen multiple apical 0.2 - 0.5 cm lung nodules seen seen bilaterally with the largest in the left upper lobe posterior image 37/203 measured 0.3 cm and the largest on the right on image 29 measured 0.5 cm. There is 6 cm bleb seen in the right middle lobe paracardiac. Central airways are patent MEDIASTINUM: The mediastinum is normal.? CORONARY ARTERY CALCIFICATION: Heavily calcified coronary arteries present. PLEURA: There is no pleural effusion. No pleural mass or thickening.? AXILLA: No lymphadenopathy.? UPPER ABDOMEN: Unremarkable.? OSSEOUS STRUCTURES: Unremarkable.? CT/CT chest wo IV con IMPRESSION: 1.? Centrilobular emphysema and multiple small lung nodules. 2.? Heavily calcified coronary arteries. ? Fleischner guidelines were followed. Assessment & Plan Assessment & Plan (1) COPD (chronic obstructive pulmonary disease): Code(s): J44.9 - Chronic obstructive pulmonary disease, unspecified (2) Tobacco abuse: Code(s): Z72.0 - Tobacco use (3) Obstructive sleep apnea hypopnea, mild: Code(s): G47.33 - Obstructive sleep apnea (adult) (pediatric) (4) Nocturnal hypoxemia: Code(s): G47.34 - Idiopathic sleep related nonobstructive alveolar hypoventilation (5) Multiple pulmonary nodules: Code(s): R91.8 - Other nonspecific abnormal finding of lung field Plan Reviewed PFT which did not reveal any obstructive or restrictive defect although chest CT did reveal emphysema, including multiple pulmonary nodules 3-5 mm and a 6 mm bleb of the right middle lobe. Will send for repeat scan in one year to monitor nodules. Reports improvements with change to ICS/LABA, continue current regimen. Reviewed home sleep study which revealed mild obstructive sleep apnea with an AHI of 10.3 with significant nocturnal hypoxia. Will send for in lab study to determine optimal pressures and monitor for hypoventilation. Discussed importance of weight loss and smoking cessation. All questions were answered and patient is in agreement of plan. Will follow up to review results. Orders: Orders CT chest wo IV con 06/26/24 R91.8 - Other nonspecific abnormal finding of lung field RT PSG in-lab sleep study Today G47.33 - Obstructive sleep apnea (adult) (pediatric), G47.34 - Idiopathic sleep related nonobstructive alveolar hypoventilation Medications: New fluticasone propionate 50 mcg/actuation (Flonase Allergy Relief) administer into each nostril 2 sprays intranasal DAILY 16 grams 3RF Coding Level of Care Code Est Pt Level 4 (59051) Diagnoses COPD (chronic obstructive pulmonary disease) J44.9 Tobacco abuse Z72.0 Obstructive sleep apnea hypopnea, mild G47.33 Nocturnal hypoxemia G47.34 Multiple pulmonary nodules R91.8
== END 2023-07-25 14:54 | disposition home or self-care (01) ==
PROVIDERS: PCP Internal Medicine Geriatric Medicine; Visit Provider Nurse Practitioner Family
DX: J44.9 Chronic obstructive pulmonary disease, unspecified (principal); Z72.0 Tobacco use; G47.33 Obstructive sleep apnea (adult) (pediatric); G47.34 Idiopathic sleep related nonobstructive alveolar hypoventilation; R91.8 Other nonspecific abnormal finding of lung field
CPT/HCPCS: 99214

== ENCOUNTER → 2023-07-25 13:45 | Outpatient (BNVA) | payer MEDICAID, SELFPAY ==
[2021-07-12 09:11] VITALS: BP 100/62
== END ==
PROVIDERS: PCP Internal Medicine Geriatric Medicine; Visit Provider Nurse Practitioner Family
DX: J44.9 Chronic obstructive pulmonary disease, unspecified (principal); G47.33 Obstructive sleep apnea (adult) (pediatric); G47.34 Idiopathic sleep related nonobstructive alveolar hypoventilation; R91.8 Other nonspecific abnormal finding of lung field; Z72.0 Tobacco use
CPT/HCPCS: 99212

== ENCOUNTER → 2023-10-24 19:30 | Outpatient (REF) | payer MEDICAID, SELFPAY | LOC: HO.SL 19:30 | PROVIDERS: PCP Internal Medicine Geriatric Medicine; Visit Provider Nurse Practitioner Family | DX: G47.33 Obstructive sleep apnea (adult) (pediatric) (principal); R40.0 Somnolence | CPT/HCPCS: 95810 ==

== ENCOUNTER → 2023-10-24 22:02 | Outpatient (BNV) | payer MEDICAID, SELFPAY ==
[2021-07-12 09:11] VITALS: BP 100/62
== END ==
PROVIDERS: PCP Internal Medicine Geriatric Medicine; Visit Provider Internal Medicine
DX: G47.33 Obstructive sleep apnea (adult) (pediatric) (principal)
CPT/HCPCS: 95810

== ENCOUNTER 2023-11-06 09:51 | Outpatient (AMB) | payer MEDICAID, SELFPAY ==
--- NOTE | 2023-11-06 09:52 | A.OFFVIS_ITS ---
Intake Vital Signs 3 11/06/23 09:53 Weight 203 lb BP 130/82 Blood Pressure Location Lt brachial Position Sitting Pulse 77 Pulse Source Pulse Oximeter Pulse Oximetry (%) 99 Oxygen Delivery Method Room Air Intake Visit Reasons: sleep study results Allergies naproxen Adverse Reaction (Intermediate, Verified 11/06/23 09:57) kidney problems, hematuria Medication List - Last Reconciled 11/06/23 by Olimpia Rojo LPN amlodipine 2.5 mg PO DAILY aspirin 81 mg PO DAILY atorvastatin 80 mg PO DAILY baclofen 10 mg PO BID clopidogrel 75 mg PO DAILY ergocalciferol (vitamin D2) (Vitamin D2) 1,250 mcg PO QWEEK ezetimibe 10 mg PO QAM fluticasone propion-salmeterol 115-21 mcg/actuation (Advair HFA) 2 puffs inhalation Q12H fluticasone propionate 100 mcg/actuation (Flovent Diskus) 2 inhalations inhalation BID fluticasone propionate 50 mcg/actuation 2 sprays intranasal DAILY gabapentin 300 mg PO BID hydrocortisone 2.5% (Proctozone-HC) 1 appl MA BID PRN isosorbide mononitrate ER 60 mg PO DAILY levalbuterol tartrate 45 mcg/actuation 1 puff inhalation Q4-6H PRN metoprolol tartrate 100 mg PO BID 90 days naloxone 4 mg/actuation 0 sprays intranasal nicotine (polacrilex) 4 mg PO nitroglycerin 0.4 mg sublingual Q5M PRN oxycodone-acetaminophen 5-325 mg (Percocet) 1 tab PO Q6H PRN pantoprazole 20 mg PO DAILY simethicone (Gas Relief (simethicone)) 125 mg PO TID-QID PRN tamsulosin 0.4 mg PO BEDTIME HPI sleep study results 2 HPI0 Details [place] is a pleasant 58 year male current 1/2 ppd smoker with a 40+ pack year history, with underlying asthma/COPD overlap and CAD s/p stents followed by cardiology. Since the last visit he has been using Advair with moderate improvements in symptoms, however after further discussion, he has only been using 1 inhalation BID, instead of 2 inhalations BID. Reviewed prescription again. Patient also noted that he prefers albuterol over levalbuterol with no noted adverse effects. Will order this. Today patient presents to review sleep study. [facility] Medical History (Updated 11/06/23 @ 12:01 by Lisa Middleton NP) Hemorrhoids Acid reflux Fibromyalgia Herniated lumbar intervertebral disc Herniated cervical disc Hx of osteoarthritis Bilateral carpal tunnel syndrome Hx of renal calculi Hx of migraine headaches Anxiety and depression Sleep apnea Smoker Asthma Myocardial infarction Elevated cholesterol CAD (coronary artery disease) HTN (hypertension) Surgical History H/O lithotripsy History of cardiac cath History of esophagogastroduodenoscopy (EGD) History of PTCA Hx of tonsillectomy Hx of umbilical hernia repair Family History Mother Lung cancer Father Prostate cancer Social History (Updated 07/25/23 @ 14:35 by Valerie Berumen LPN) Household Members: Significant Other Are you a primary day care teacher to a significant other at home: No Do you presently have visiting nurse or other home services: No Alcohol intake: current Alcohol intake frequency: holidays/special occasions only Patient Tobacco Use Status: Current everyday Tobacco user Tobacco use type: Cigarette Cigarette Packs Per Day: 0.5 Cigarettes Per Day: 10.0 Years Smoked: 30 +/- Current occupational status: employed 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 [employer] Review of Systems Const Denies chills, Denies excessive sweating, Denies fever(s), Denies headache(s) and Denies night sweats Eyes Denies dry eyes, Denies irritation and Denies itchy eyes ENT Reports Normal hearing present, Denies headache(s), Denies nasal congestion, Denies nasal discharge, Denies post nasal drip and Denies sore throat Card Denies chest pain, Denies chest pain at rest, Denies chest pain with activity, Denies claudication, Denies leg edema and Denies orthopnea Resp Denies excessive phlegm production, Denies pain on inspiration, Denies pain with cough and Denies stridor Musc Denies myalgias Neuro Reports Normal hearing present and Denies headache(s) Endo Denies excessive sweating Lino/Lymph Denies lymphadenopathy Aller/Immun Denies itchy eyes and Denies seasonal rhinorrhea Physical Exam Vital Signs: Last Vital Signs Pulse 77 11/06/23 09:53 BP 130/82 11/06/23 09:53 Pulse Ox 99 11/06/23 09:53 Oxygen Delivery Method Room Air 11/06/23 09:53 Const General: cooperative, healthy appearing, comfortable, no acute distress, well developed and alert Nutritional Appearance: obese Orientation/consciousness: patient oriented x3 Limitations: no limitations HEENT Head: Yes normal to inspection, Yes normocephalic and Yes atraumatic Ears: hearing grossly normal bilaterally and external ears normal Eyes General: appearance normal, both eyes and all related structures Eyelids: Yes eyelids normal Sclerae: sclerae normal EOM: EOMs intact bilaterally Neck Neck: Yes normal visual inspection and Yes no lymphadenopathy Lymphatic: no lymphadenopathy noted Chest Chest palpation & inspection: normal inspection of the chest Resp Effort & Inspection: normal respiratory effort, able to speak in complete sentences, no audible wheezes, no cough, no stridor, not tachypneic, no tripod positioning and no use of accessory muscles Auscultation: clear to auscultation bilaterally Cardio Jugular venous distension: no JVD Rate: regular rate Rhythm: regular rhythm Skin Other: warm, dry General skin exam: no rashes or lesions noted Neuro General: patient oriented x3 Cranial nerves: Yes Normal hearing present Cognition (Neuro): normal cognition Gait exam (Neuro): Normal gait present Extrem General: Yes normal to inspection, Yes capillary refill normal, Yes no clubbing, cyanosis or edema and Yes no pedal edema Psych Appearance: grossly normal and well kempt Speech and movement: Normal speech and movement present and Clear speech present Affect: normal affect Attitude: cooperative Thought process: Normal thought process present Thought content: Normal thought content present Insight: Good insight present (Psych) Judgement: Good judgement present (Psych) Results Reviewed Results Reviewed: Assessment & Plan Assessment & Plan (1) Obstructive sleep apnea: Code(s): G47.33 - Obstructive sleep apnea (adult) (pediatric) (2) COPD (chronic obstructive pulmonary disease): Code(s): J44.9 - Chronic obstructive pulmonary disease, unspecified (3) Tobacco abuse: Code(s): Z72.0 - Tobacco use (4) Nocturnal hypoxemia: Code(s): G47.34 - Idiopathic sleep related nonobstructive alveolar hypoventilation (5) Multiple pulmonary nodules: Code(s): R91.8 - Other nonspecific abnormal finding of lung field Plan Reviewed in lab titration sleep study results with patient which revealed severe obstructive sleep apnea. Since patient is quite symptomatic, will start CPAP therapy. Will send in prescription for APAP mode and pressure settings of 4-13 cm with close monitoring for compliance and benefits. Sleep hygiene education reviewed. He is aware if there are any issues with the mask or CPAP machine, he will call the office. Will also send in albuterol as patient has tolerated in the past without any significant palpitations/tachycardia. Reviewed prescription of advair with patient and importance of adherence. All questions were answered and patient is in agreement of plan. Will follow up in 8 weeks. Coding Level of Care Code Est Pt Level 4 (23860) Diagnoses Obstructive sleep apnea G47.33 COPD (chronic obstructive pulmonary disease) J44.9 Tobacco abuse Z72.0 Nocturnal hypoxemia G47.34 Multiple pulmonary nodules R91.8
[2023-11-06 09:53] VITALS: BP 130/82; PULSE 77; O2SAT 99
== END 2023-11-06 10:18 | disposition home or self-care (01) ==
PROVIDERS: PCP Internal Medicine Geriatric Medicine; Visit Provider Nurse Practitioner Family
DX: G47.33 Obstructive sleep apnea (adult) (pediatric) (principal); J44.9 Chronic obstructive pulmonary disease, unspecified; G47.34 Idiopathic sleep related nonobstructive alveolar hypoventilation; R91.8 Other nonspecific abnormal finding of lung field
CPT/HCPCS: 99214

== ENCOUNTER → 2023-11-06 09:51 | Outpatient (BNVA) | payer MEDICAID, SELFPAY ==
[2021-07-12 09:11] VITALS: BP 100/62
== END ==
PROVIDERS: PCP Internal Medicine Geriatric Medicine; Visit Provider Nurse Practitioner Family
DX: G47.33 Obstructive sleep apnea (adult) (pediatric) (principal); G47.34 Idiopathic sleep related nonobstructive alveolar hypoventilation; J44.9 Chronic obstructive pulmonary disease, unspecified; R91.8 Other nonspecific abnormal finding of lung field; Z72.0 Tobacco use
CPT/HCPCS: 99212

== ENCOUNTER 2023-12-28 13:46 | Outpatient (AMB) | payer MEDICAID, SELFPAY ==
--- NOTE | 2023-12-28 13:49 | MHC.OFFVIS ---
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 Denies any recent or past trauma, injury or falls. 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 Reports neck pain due to large lump in his posterior neck for many years and has been affecting his cervical spine range of motion, causing him significant pain and stiffness especially with right lateral rotation and bending. Patient is interesting in surgical consultation for this. His back pain is axial and also radiates into his left thigh and lateral hip with associated numbness, tingling, left thigh and left knee pain, and thigh weakness. He denies any pain radiating down past left knee into his ankle or foot. Patient also presents with localized tenderness in the projection of left sacroiliac joint area and positive provocative testing. He reports left knee pain with crepitating on flexion, climbing stairs or pivoting. Patient denies previous spine surgery but has undergone several back injections for his back and left leg pain in 2010 at [facility] and completed physical therapy 2 years ago in [place], [place] without any improvement in his symptoms or functioning. Pain affects his daily activities, functioning, sleep, social interactions, work on quality of life. Denies any fever, abdominal pain, weight loss, foot drop, bladder or bowel dysfunction, or saddle anesthesia. Location Lower back radiates to right hip and anterior thigh; posterior neck pain Duration Chronic pain for> 25 years Characteristics of symptom or complaint Aching, radiating, stabbing, pinching, shooting, tingling Aggravating or associated factors Walking, lifting, bending, twisting, climbing stairs, pulling Relieving factors Rest, sitting, heat, Tylenol, Percocet Treatment PT, injection at [facility] in 2011 -no relief PFSH Medical History Hemorrhoids Acid reflux Fibromyalgia Herniated lumbar intervertebral disc Herniated cervical disc Hx of osteoarthritis Bilateral carpal tunnel syndrome Hx of renal calculi Hx of migraine headaches Anxiety and depression Sleep apnea Smoker Asthma Myocardial infarction Elevated cholesterol CAD (coronary artery disease) HTN (hypertension) Surgical History History of cardiac cath History of esophagogastroduodenoscopy (EGD) Hx of tonsillectomy Hx of umbilical hernia repair H/O lithotripsy History of PTCA Family History Mother Lung cancer Father Prostate cancer Social History Household Members: Significant Other Are you a primary child care to a significant other at home: No Do you presently have visiting nurse or other home services: No Alcohol intake: current Alcohol intake frequency: holidays/special occasions only Patient Tobacco Use Status: Current everyday Tobacco user Tobacco use type: Cigarette Cigarette Packs Per Day: 0.5 Cigarettes Per Day: 10.0 Years Smoked: 30 +/- Current occupational status: employed 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 Alert and oriented. Mood and affect appropriate. Follows and participates in conversation appropriately. Respiratory effort is unlabored. No cough. No nasal discharge. Able to transition from sit to stand unassisted. Ambulates with bilaterally normal heel strike and toe off. Neck Other: Soft, round, well circumscribed, solid, mobile posterior neck lump. Tenderness with palpation and local compression as well as cervical spine ROM. Overlying skin is normal. Neck: Yes no lymphadenopathy, Yes trachea midline, Yes supple, No anterior neck swelling, Yes no JVD, No prominent supraclavicular fat pad and Yes prominent dorsocervical fat pad Back/Spine/Pelvis Other: Patient is able to walk and stand on heels and tip toes with mild difficulty on the left due to knee pain demonstrating good motor tone. Can flex forward to 60-65 degrees and extend to 5-10 degrees before experiencing lumbar pain. Demonstrates 5/5 right and 4/5 left strength of quadriceps bilaterally as well as flexion/dorsiflexion of bilateral feet against resistance. 2+ pedal pulses bilaterally. Seated straight leg rise with dorsiflexion positive on the left. +1 on the right, not assessed on left due to left knee pain patellar and +1 achilles reflexes bilaterally. Facet loading test positive bilaterally. Kristen sign, Clyde?s, Ga[place]len, Pelvic compression and Stinchfield tests are positive left. No groin pain with I/E hip rotations. Valsalva maneuver negative. Skin General skin exam: no rashes or lesions noted Results Reviewed Results Reviewed: MR LUMBAR SPINE WITHOUT CONTRAST 05/25/23 CLINICAL INFORMATION: Low back pain. COMPARISON: None available. TECHNIQUE: Multiplanar, multisequence imaging was obtained. FINDINGS: VERTEBRAL BODIES AND PARASPINAL STRUCTURES: The marrow signal is within normal limits. There is [id number] disc space narrowing with anterior endplate spurring partially visualized on sagittal imaging at the T10-T11 and T11-T12 levels. Left posterolateral disc bulge with facet arthropathy at the T10-T11 level results in significant left foraminal encroachment, only partially visualized. There are no compression fractures or subluxations. The paraspinal soft tissues appear normal. There are mild degenerative changes of the sacroiliac joints bilaterally. CONUS MEDULLARIS AND CAUDA EQUINE: The distal cord, conus tip, and cauda equina nerve roots appear normal. SPINAL LEVELS: L1-L2: Mild posterior disc bulge and mild facet arthropathy. Bulging disc mildly impresses upon the ventral thecal sac. No central canal stenosis or foraminal narrowing. L2-L3: Left posterolateral disc protrusion visible with mild impression upon the exiting left L2 nerve root. No central canal stenosis. L3-L4: Broad-based disc bulge without central canal stenosis. Bulging disc posterolaterally on both sides impresses upon the exiting L3 nerve roots. Moderate right and [id number] left foraminal narrowing. L4-L5: Generalized disc bulge and mild facet arthropathy without central canal stenosis. Bulging disc contributes to moderate bilateral foraminal encroachment and mild impression upon the exiting L4 nerve roots. L5-S1: Mild disc bulge with a posterior annular fissure which mildly impresses upon the right S1 nerve root. Mild facet arthropathy. No central canal stenosis or foraminal narrowing. IMPRESSION: 1. Left posterolateral disc protrusion at the L2-L3 level with mild impression upon the left L2 nerve root. 2. Broad-based disc bulge at the L3-L4 level with bulging disc impressing upon both exiting L3 nerve roots. Moderate right foraminal narrowing. 3. Disc bulge at the L4-L5 level with moderate bilateral foraminal encroachment and mild impression upon the exiting L4 nerve roots. 4. Posterior annular fissure at the L5-S1 level mildly impressing upon the right S1 nerve root. 5. Moderate degenerative disc disease at the T10-T11 and T11-T12 levels with significant left foraminal encroachment at the T10-T11 level. XR CERVICAL SPINE 04/25/23 CLINICAL INFORMATION: Neck pain and radiculopathy COMPARISON: None available. TECHNIQUE: 6 views of the cervical spine, inclusive of bilateral oblique and swimmer's views, were obtained. FINDINGS: Bone alignment is normal. No fracture or dislocation. Degenerative spondylosis from C3-C4 to C6-C7. Normal disc spaces. Right-sided neuroforaminal narrowing from bony osteophyte from C4-C5 to C6-C7. Left-sided neuroforaminal narrowing from bony osteophyte from C3-C4 to C5 6. Prevertebral soft tissues are normal. IMPRESSION: Multilevel degenerative changes. Assessment & Plan Assessment & Plan (1) Lipoma of neck: Code(s): D17.0 - Benign lipomatous neoplasm of skin and subcutaneous tissue of head, face and neck (2) Cervicalgia: Code(s): M54.2 - Cervicalgia (3) Lumbar spondylosis: Code(s): M47.816 - Spondylosis without myelopathy or radiculopathy, lumbar region (4) Lumbar degenerative disc disease: Code(s): M51.36 - Other intervertebral disc degeneration, lumbar region (5) Lumbar radiculopathy: Code(s): M54.16 - Radiculopathy, lumbar region (6) Muscle spasm: Code(s): M62.838 - Other muscle spasm Plan Discussed treatment options for both his axial low back as well as radicular pain. 1. For ongoing radicular pain, will plan for Left L3-L4 TFESI with local and fluoroscopy. 2. For chronic axial low back pain will tentatively plan for diagnostic bilateral L3-L4 DR L5 medial branch blocks with local and fluoroscopy. If he has significant relief from the diagnostic blocks for his axial low back pain, will consider either therapeutic injections, Sprint PNS or RFA depending on his preference. General Surgery referral to further evaluation chronic posterior neck lipoma that has been increasing his cervical arthritic symptoms and causing difficulty and stiffness with ROM. Anticoagulation: Patient on anticoagulation (Plavix, Aspirin) and instructions given on when to pause with prescribing physician permission. Justification for interventional therapy: ? Patient with average pain > 6/10 ? Patient has exhausted conservative therapy, NSAIDs, opioids, physical therapy The risks, consequences, alternatives, and benefits of various treatment options were discussed with the patient in great detail, including conservative management, injections and procedures. Patient is aware of hyperglycemic effects of steroids. Orders: Referrals General Surgery Referral D17.0 - Benign lipomatous neoplasm of skin and subcutaneous tissue of head, face and neck, M54.2 - Cervicalgia Coding Level of Care Code New Pt Level 4 (18088) Diagnoses Lipoma of neck D17.0 Cervicalgia M54.2 Lumbar spondylosis M47.816 Lumbar degenerative disc disease M51.36 Lumbar radiculopathy M54.16 Muscle spasm M62.838
[2023-12-28 13:59] VITALS: BP 132/80; PULSE 72; O2SAT 97; BMI 36.4
== END 2023-12-28 14:29 | disposition home or self-care (01) ==
PROVIDERS: PCP Internal Medicine Geriatric Medicine; Visit Provider Nurse Practitioner Family
DX: D17.0 Benign lipomatous neoplasm of skin and subcutaneous tissue of head, face and neck (principal); M54.2 Cervicalgia; M47.816 Spondylosis without myelopathy or radiculopathy, lumbar region; M51.36 Other intervertebral disc degeneration, lumbar region; M54.16 Radiculopathy, lumbar region; M62.838 Other muscle spasm
CPT/HCPCS: 99204

== ENCOUNTER → 2023-12-28 13:46 | Outpatient (BNVA) | payer MEDICAID, SELFPAY | PROVIDERS: PCP Internal Medicine Geriatric Medicine; Visit Provider Nurse Practitioner Family | DX: M54.2 Cervicalgia (principal); M47.816 Spondylosis without myelopathy or radiculopathy, lumbar region; M51.36 Other intervertebral disc degeneration, lumbar region; M54.16 Radiculopathy, lumbar region; M62.838 Other muscle spasm; D17.0 Benign lipomatous neoplasm of skin and subcutaneous tissue of head, face and neck | CPT/HCPCS: 99212 ==

== ENCOUNTER 2024-01-02 14:31 | Outpatient (AMB) | payer MEDICAID, SELFPAY ==
--- NOTE | 2024-01-02 14:32 | MHC.OFFVIS ---
Intake Vital Signs 01/02/24 14:39 Height 5 ft 3 in Weight 207 lb BMI 36.7 BP 146/74 H Blood Pressure Location Lt brachial Position Sitting Intake Visit Reasons: Chronic posterior neck lipoma Intake Note: This patient presents for an assessment for chronic posterior neck lipoma. Patient c/o; report occasional stabbing pain, reports bulges, reports pain and pressure. 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 Accompanied by: Self / Same As Patient Allergies naproxen Adverse Reaction (Intermediate, Verified 01/02/24 14:40) kidney problems, hematuria Medication List - Last Reconciled 01/02/24 by Carroll Ware MD albuterol sulfate 90 mcg/actuation 2 puffs inhalation Q4-6H PRN amlodipine 2.5 mg PO DAILY aspirin 81 mg PO DAILY atorvastatin 80 mg PO DAILY baclofen 10 mg PO BID clopidogrel 75 mg PO DAILY docusate sodium 100 mg PO QAM ergocalciferol (vitamin D2) (Vitamin D2) 1,250 mcg PO QWEEK ezetimibe 10 mg PO QAM fluticasone propion-salmeterol 115-21 mcg/actuation (Advair HFA) 2 puffs inhalation Q12H fluticasone propionate 50 mcg/actuation 2 sprays intranasal DAILY hydrocortisone 2.5% (Proctozone-HC) 1 appl MS BID PRN isosorbide mononitrate ER 60 mg PO DAILY metoprolol tartrate 100 mg PO BID 90 days multivitamin with folic acid 400 mcg (Daily-Maddi (with folic acid)) 1 tab PO QAM naloxone 4 mg/actuation 0 sprays intranasal nicotine (polacrilex) 4 mg PO nitroglycerin 0.4 mg sublingual Q5M PRN oxycodone-acetaminophen 5-325 mg (Percocet) 1 tab PO Q6H PRN pantoprazole 20 mg PO DAILY simethicone (Gas Relief (simethicone)) 125 mg PO TID-QID PRN tamsulosin 0.4 mg PO BEDTIME HPI Chronic posterior neck lipoma HPI Details 58-year-old male referred for a lipoma of the posterior neck. He says that he has had this for over 10 years. This has been increasing in size. He says now this causes a lot of discomfort. He wants this removed He has a history of coronary disease. He said he has had 5 stents in the past. He says that stenting was done about 2 years ago. [facility] Medical History Hemorrhoids Acid reflux Fibromyalgia Herniated lumbar intervertebral disc Herniated cervical disc Hx of osteoarthritis Bilateral carpal tunnel syndrome Hx of renal calculi Hx of migraine headaches Anxiety and depression Sleep apnea Smoker Asthma Myocardial infarction Elevated cholesterol CAD (coronary artery disease) HTN (hypertension) Surgical History History of cardiac cath History of esophagogastroduodenoscopy (EGD) Hx of tonsillectomy Hx of umbilical hernia repair H/O lithotripsy History of PTCA Family History Mother Lung cancer Father Prostate cancer Social History Household Members: Significant Other Are you a primary child adolescent care to a significant other at home: No Do you presently have visiting nurse or other home services: No Alcohol intake: current Alcohol intake frequency: holidays/special occasions only Patient Tobacco Use Status: Current everyday Tobacco user Tobacco use type: Cigarette Cigarette Packs Per Day: 0.5 Cigarettes Per Day: 10.0 Years Smoked: 30 +/- Current occupational status: employed 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 Review of Systems Const Denies chills and Denies fever(s) Card Denies chest pain, Denies dyspnea and Denies dyspnea on exertion Resp Denies cough, Denies dyspnea and Denies dyspnea on exertion GI Denies hematochezia and Denies change in bowel habits Denies hematuria and Denies difficulty urinating Musc Denies back pain and Denies limited range of motion Neuro Denies focal weakness and Denies convulsions Psych Denies depression and Denies mood swings Physical Exam Const Other: Appears obese General: comfortable and no acute distress Orientation/consciousness: patient oriented x3 Neck Other: Posterior neck shows a large lipoma about 70 cm in widest dimension with no skin changes Neck: Yes no lymphadenopathy Resp Auscultation: clear to auscultation bilaterally Cardio Rhythm: regular rhythm GI Palpation (GI): Soft to palpation, nontender and no guarding Neuro General: patient oriented x3 Assessment & Plan Assessment & Plan (1) Lipoma of neck: Code(s): D17.0 - Benign lipomatous neoplasm of skin and subcutaneous tissue of head, face and neck Plan: He has this large lipoma on the posterior neck as described above. He wants this excised. I explained him the technique of excision. I reviewed the risks including but not limited to bleeding, infections and poor healing, as well as the benefits and alternatives. This will have to be done under anesthesia of the size. He will be in prone position. He has given consent He is on Plavix so we will have to hold this for about 5 days prior to the procedure. Coding Level of Care Code New Pt Level 3 (86506) Diagnoses Lipoma of neck D17.0
[2024-01-02 14:39] VITALS: BP 146/74; BMI 36.7
== END 2024-01-02 15:01 | disposition home or self-care (01) ==
PROVIDERS: PCP Internal Medicine Geriatric Medicine; Visit Provider Surgery
DX: D17.0 Benign lipomatous neoplasm of skin and subcutaneous tissue of head, face and neck (principal)
CPT/HCPCS: 99203

== ENCOUNTER → 2024-01-02 14:31 | Outpatient (BNVA) | payer MEDICAID, SELFPAY ==
[2021-07-12 09:11] VITALS: BP 100/62
== END ==
PROVIDERS: PCP Internal Medicine Geriatric Medicine; Visit Provider Surgery
DX: D17.0 Benign lipomatous neoplasm of skin and subcutaneous tissue of head, face and neck (principal)
CPT/HCPCS: 99202

== ENCOUNTER → 2024-01-08 15:03 | Outpatient (BNV) | payer MEDICAID, SELFPAY | PROVIDERS: PCP Internal Medicine Geriatric Medicine; Visit Provider Internal Medicine Cardiovascular Disease | DX: R00.1 Bradycardia, unspecified (principal) | CPT/HCPCS: 93010 ==

== ENCOUNTER 2024-01-15 06:00 | Day surgery (SDC) | payer MEDICAID, SELFPAY ==
--- NOTE | 2024-01-08 | ECG_ITS ---
Test Reason : PREOP Blood Pressure : / mmHG Vent. Rate : 059 BPM Atrial Rate : 059 BPM P-R Int : 184 ms QRS Dur : 082 ms QT Int : 406 ms P-R-T Axes : 054 026 025 degrees QTc Int : 401 ms Sinus bradycardia Otherwise normal ECG When compared with ECG of 16-SEP-2019 12:55, No significant change was found Referred By: Shaista Ramirez Electronically Signed By:Cornelius Chavez
[2024-01-08 14:00] VITALS: BP 133/85; PULSE 65; RESP 16; O2SAT 96; BMI 36.0
--- NOTE | 2024-01-08 14:28 | HO.ANESPROP2 ---
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 Remains on asa and plavix. OK to hold per cardiology. Stable at last cardiology office visit 04/2023, but referred to pulmo for COPD. Followed by [facility] pulmo. Started on inhalers, recent ASHLEE diagnosis. GERD. Minimal control with ppi. ASHLEE. CPAP QHS COPD/Smoker/Asthma. 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 Only occassional at home. Chronic opioids for all over pain PMFSH Active Problems Active Problems: All Active Problems (Updated 01/08/24 @ 14:24 by Cesia Castro RN) Muscle spasm (Acute) Lumbar radiculopathy (Acute) Lumbar degenerative disc disease (Acute) Lumbar spondylosis (Acute) Cervicalgia (Acute) Lipoma of neck (Acute) Obstructive sleep apnea (Acute) Multiple pulmonary nodules (Acute) Nocturnal hypoxemia (Acute) Obstructive sleep apnea hypopnea, mild (Acute) Daytime somnolence (Acute) Loud snoring (Acute) COPD (chronic obstructive pulmonary disease) (Acute) Cough (Acute) Stable angina (Acute) Tobacco abuse (Acute) Chest pain (Acute) Hyperplastic polyp of intestine (Acute) CAD (coronary artery disease) (Acute) Hemorrhoids (Acute) Acid reflux (Acute) Past Medical History Medical History Hemorrhoids Acid reflux Fibromyalgia Herniated lumbar intervertebral disc Herniated cervical disc Hx of osteoarthritis Bilateral carpal tunnel syndrome Hx of renal calculi Hx of migraine headaches Anxiety and depression Sleep apnea Smoker Asthma Myocardial infarction Elevated cholesterol CAD (coronary artery disease) HTN (hypertension) Family History Family History Mother Lung cancer Father Prostate cancer Family history of problems with anesthesia: No Surgical History Surgical History Hx of colonoscopy History of cardiac cath History of esophagogastroduodenoscopy (EGD) Hx of tonsillectomy Hx of umbilical hernia repair H/O lithotripsy History of PTCA History of Problems with Anesthesia: No Social History Social History Household Members: Significant Other and Family Housing: House Are you a primary home care consultant to a significant other at home: No Do you presently have visiting nurse or other home services: No Alcohol intake: current Alcohol intake frequency: holidays/special occasions only Patient Tobacco Use Status: Current everyday Tobacco user Tobacco use type: Cigarette Cigarette Packs Per Day: 0.5 Cigarettes Per Day: 10 Years Smoked: 40 Smoked in Last 30 Days: Yes Use of substances other than those prescribed or required for medical reasons: No Have you been hit, kicked, punched, or otherwise hurt by someone within the past year? 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 Meds Allergies Allergy/AdvReac Type Severity Reaction Status Date / Time naproxen AdvReac Intermediate kidney Verified 01/15/24 06:17 problems, hematuria ibuprofen AdvReac hematuria Verified 01/15/24 07:28 Home Medications Medication Instructions Recorded Confirmed Last Taken Type ergocalciferol (vitamin D2) 1,250 1,250 mcg PO QWEEK 11/03/20 01/08/24 11/07/20 06:30 History mcg (50,000 unit) capsule (Vitamin D2) nitroglycerin 0.4 mg sublingual 0.4 mg sublingual Q5M PRN Chest 11/03/20 01/08/24 1 Month Ago History tablet Pain ~10/10/20 oxycodone-acetaminophen 5 mg-325 1 tab PO Q6H PRN Pain 11/03/20 01/08/24 11/08/20 06:00 History mg tablet (Percocet) tamsulosin 0.4 mg capsule 0.4 mg PO BEDTIME 11/03/20 01/02/24 Unknown History pantoprazole 20 mg tablet,delayed 20 mg PO DAILY 05/04/22 01/08/24 01/15/24 History release baclofen 10 mg tablet 10 mg PO BID 05/24/23 01/08/24 Unknown History ezetimibe 10 mg tablet 10 mg PO QAM 05/24/23 01/08/24 Unknown History naloxone 4 mg/actuation nasal spray 0 spray intranasal 05/24/23 01/02/24 Unknown History nicotine (polacrilex) 4 mg gum 4 mg PO 3XD PRN Smoking Cessation 05/24/23 01/08/24 Unknown History docusate sodium 100 mg capsule 100 mg PO QAM 12/28/23 01/08/24 Unknown History multivitamin with folic acid 400 1 tab PO QAM 12/28/23 01/08/24 Unknown History mcg tablet (Daily-Maddi (with folic acid)) Exam Height,Weight and Vital Signs: Height 5 ft 3 in Weight 92.079 kg Last Vital Signs Pulse 65 01/08/24 14:00 Resp 16 01/08/24 14:00 BP 133/85 01/08/24 14:00 Pulse Ox 96 01/08/24 14:00 Airway Mallampati Class: III TM Dist: >3cm Neck ROM: Limited Loose/Missing/Broken Teeth: Yes (missing 25-26) Heart: RRR Lungs: Fine crackles in lower Assessment and Plan Final Anesthetic Review Family History of Problems with Anesthesia: No History of Problems with Anesthesia: No Documented by User: Lynette Betancourt MD 01/15/24 07:57 PMFSH Past Medical History Medical History Hemorrhoids Acid reflux Fibromyalgia Herniated lumbar intervertebral disc Herniated cervical disc Hx of osteoarthritis Bilateral carpal tunnel syndrome Hx of renal calculi Hx of migraine headaches Anxiety and depression Sleep apnea Smoker Asthma Myocardial infarction Elevated cholesterol CAD (coronary artery disease) HTN (hypertension) Family History Family History Mother Lung cancer Father Prostate cancer Surgical History Surgical History Hx of colonoscopy History of cardiac cath History of esophagogastroduodenoscopy (EGD) Hx of tonsillectomy Hx of umbilical hernia repair H/O lithotripsy History of PTCA Social History Social History Household Members: Significant Other and Family Housing: House Are you a primary home care consultant to a significant other at home: No Do you presently have visiting nurse or other home services: No Alcohol intake: current Alcohol intake frequency: holidays/special occasions only Patient Tobacco Use Status: Current everyday Tobacco user Tobacco use type: Cigarette Cigarette Packs Per Day: 0.5 Cigarettes Per Day: 10 Years Smoked: 40 Smoked in Last 30 Days: Yes Use of substances other than those prescribed or required for medical reasons: No Have you been hit, kicked, punched, or otherwise hurt by someone within the past year? If so, by whom?: No Are you DNR?: No Advance Directives: No Advance Directives Information Provided: Yes Advance Directives on File: No Recently lost weight without trying: No Nutrition Risks: Difficulty swallowing Current occupational status: employed Current occupation: [employer] Allergies Allergy/AdvReac Type Severity Reaction Status Date / Time naproxen AdvReac Intermediate kidney Verified 01/15/24 06:17 problems, hematuria ibuprofen AdvReac hematuria Verified 01/15/24 07:28 Home Medications Medication Instructions Recorded Confirmed Last Taken Type ergocalciferol (vitamin D2) 1,250 1,250 mcg PO QWEEK 11/03/20 01/08/24 11/07/20 06:30 History mcg (50,000 unit) capsule (Vitamin D2) nitroglycerin 0.4 mg sublingual 0.4 mg sublingual Q5M PRN Chest 11/03/20 01/08/24 1 Month Ago History tablet Pain ~10/10/20 oxycodone-acetaminophen 5 mg-325 1 tab PO Q6H PRN Pain 11/03/20 01/08/24 11/08/20 06:00 History mg tablet (Percocet) tamsulosin 0.4 mg capsule 0.4 mg PO BEDTIME 11/03/20 01/02/24 Unknown History pantoprazole 20 mg tablet,delayed 20 mg PO DAILY 05/04/22 01/08/24 01/15/24 History release baclofen 10 mg tablet 10 mg PO BID 05/24/23 01/08/24 Unknown History ezetimibe 10 mg tablet 10 mg PO QAM 05/24/23 01/08/24 Unknown History naloxone 4 mg/actuation nasal spray 0 spray intranasal 05/24/23 01/02/24 Unknown History nicotine (polacrilex) 4 mg gum 4 mg PO 3XD PRN Smoking Cessation 05/24/23 01/08/24 Unknown History docusate sodium 100 mg capsule 100 mg PO QAM 12/28/23 01/08/24 Unknown History multivitamin with folic acid 400 1 tab PO QAM 12/28/23 01/08/24 Unknown History mcg tablet (Daily-Maddi (with folic acid)) Assessment and Plan Assessment Anesthesia Assessment: Anesthesia Plan Discussed and Chart Reviewed Final Anesthetic Review ASA Class: III Final Preanesthetic Review: Meds/Allgs Chart Reviewed, Consent Obtained/Reviewed and Anes Risks/Benef Reviewed Patient Risk: Intermediate Procedure Risk: Low Anesthetic Plan Anesthetic Plan: GA Disposition: Standard PACU
[2024-01-08 15:25] LABS: Hematocrit 44.7 % (42.0-52.0); Hemoglobin 14.6 g/dl (14.0-18.0); Mean Corpuscular HGB Conc 32.7 g/dl (31.0-36.0); Mean Corpuscular Hemoglobin 29.4 pg (27.0-33.0); Mean Corpuscular Volume 90.1 fL (80.0-98.0); Mean Platelet Volume 10.5 fL (9.4-12.4); Platelet Count 286 X10*3/uL (160-400); Red Blood Count 4.96 X10*6/uL (4.60-5.80); Red Cell Distribution Width 13.9 % (11.0-16.0); White Blood Count 9.5 X10*3/uL (4.8-10.8)
[2024-01-08 15:47] LABS: Anion Gap 11 (12-20); Blood Urea Nitrogen 12 mg/dL (9-16); Calcium 9.1 mg/dL (8.4-10.2); Carbon Dioxide 27 mmol/L (22-29); Chloride 110 mmol/L (96-108); Estimated Glomerular Filt Rate > 60; Glucose Random 78 mg/dL (60-115); Potassium 4.5 mmol/L (3.3-5.1); Sodium 143 mmol/L (135-145)
[2024-01-15] VITALS (7 sets, daily range): BP systolic 104–149; BP diastolic 63–73; PULSE 58–68; RESP 16–18; TEMP 36.1–36.4; O2SAT 90–98
--- NOTE | 2024-01-15 07:25 | MHC.SHP ---
Pre-Procedural Eval Section A - 24 Hr Update-Section A only Date of Service: 01/15/24 The patient is an INPATIENT: No Changes since office visit: No Cold of Flu in the past 2 weeks, No New Medical Problems, No Changes in Medication and No Patient answered all questions The patient has been examined within 24 hours of the surgical procedure. The History & Physical has been completed within 30 days and I have reviewed it.: Yes Section B - Complete if H&P > 30 days Chief Complaint: Benign lipomatous neoplasm of skin and subcutaneou Allergies: Allergies Allergy/AdvReac Type Severity Reaction Status Date / Time naproxen AdvReac Intermediate kidney Verified 01/15/24 06:17 problems, hematuria Plan I have reviewed the history and physical and performed a pertinent physical examination on my patient. No changes have occurred unless specified. Time Spent With Patient Time: Total time managing care of this patient today ____ minutes.
--- NOTE | 2024-01-15 08:02 | P.OP_ITS ---
Operative Note Operative Note Date of Service: 01/15/24 Narrative: Preop diagnosis: Large lipoma, posterior neck Postop diagnosis: The same Procedure: Excision of large lipoma, posterior neck under anesthesia Surgeon: Carroll Ware MD medical assistant secretary: VANE Tucker The patient is a 58-year-old male with note of a large lipoma on the posterior neck. He understood the technique of excision under anesthesia. He was aware of the risks, benefits, and alternatives. He was brought to the operating room. He was placed in sloppy left lateral decubitus position under general anesthesia via laryngeal mask airway. The area of the lipoma on the posterior neck near the upper back was prepped and draped. Lidocaine 1% was used for local anesthesia I made an incision on the skin overlying the lipoma transversely using blade 15. This was carried down with electrocautery through the full-thickness of skin subcutaneous fat until I was able to visualize the lipoma. I sharply dissected the lipoma off the rest of the subcutaneous layer Metzenbaum scissors and elec trocautery. We dissected posteriorly. The lipoma seen to have some lobular extension in the muscle fibers so we had to release this as well with sharp dissection using the same technique. Eventually, I was able to have circumference dissection of the large lipoma and we were able to deliver this. Lipoma measured about 8 x 8 cm. I irrigated. Hemostasis was confirmed. We reapposed the thick subcutaneous layer with Polysorb 3-0 simple interrupted sutures. Skin closure was achieved with nylon 3-0 simple interrupted sutures. The area was infiltrated with Marcaine 0.5% for postop analgesia. Dressings were applied. The procedure was completed. The patient tolerated procedure well. There were no immediate complications. Initial and final counts of sponges and instruments were correct. Estimated blood loss was less than 5 cc The patient was extubated without difficulty and transferred to the recovery room with stable vital signs
== END 2024-01-15 09:57 | disposition home or self-care (01) ==
PROVIDERS: Nurse Practitioner; PCP Internal Medicine Geriatric Medicine; Visit Provider Surgery
PROC: (CPT 21552; principal; 2024-01-15 07:30)
DX: D17.0 Benign lipomatous neoplasm of skin and subcutaneous tissue of head, face and neck (principal); G47.33 Obstructive sleep apnea (adult) (pediatric); I25.2 Old myocardial infarction; I25.10 Atherosclerotic heart disease of native coronary artery without angina pectoris; Z95.5 Presence of coronary angioplasty implant and graft; I10 Essential (primary) hypertension; E78.00 Pure hypercholesterolemia, unspecified; J45.909 Unspecified asthma, uncomplicated; M79.7 Fibromyalgia; F41.8 Other specified anxiety disorders; Z79.01 Long term (current) use of anticoagulants; Z79.51 Long term (current) use of inhaled steroids; Z79.82 Long term (current) use of aspirin; Z88.8 Allergy status to other drugs, medicaments and biological substances; F17.210 Nicotine dependence, cigarettes, uncomplicated
CPT/HCPCS: 21552; 36415; 80048; 85027; 88304; 93005; J0131; J0690; J2250; J2704; J2795; J3010

== ENCOUNTER → 2024-01-15 06:00 | Outpatient (BNV) | payer MEDICAID, SELFPAY | PROVIDERS: PCP Internal Medicine Geriatric Medicine; Visit Provider Surgery | DX: D17.0 Benign lipomatous neoplasm of skin and subcutaneous tissue of head, face and neck (principal) | CPT/HCPCS: 21554 ==

== ENCOUNTER 2024-01-24 13:04 | Outpatient (AMB) | payer MEDICAID, SELFPAY ==
--- NOTE | 2024-01-24 13:10 | MHC.OFFVIS ---
Intake Vital Signs 01/24/24 13:18 BP 135/78 Blood Pressure Location Rt brachial Position Sitting Pulse 68 Intake Visit Reasons: S/P excision Lg lipoma posterior neck Intake Note: This patient presents for a follow-up assessment status post excision large lipoma of the posterior back. Pt c/o; reports limited ROM when extends both arms, reports occasional pain. 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 Prevention Police Officer Required: No Accompanied by: Self / Same As Patient Allergies naproxen Adverse Reaction (Intermediate, Verified 01/24/24 13:20) kidney problems, hematuria ibuprofen Adverse Reaction (Verified 01/24/24 13:20) hematuria Medication List - Last Reconciled 01/24/24 by Carroll Ware MD albuterol sulfate 90 mcg/actuation 2 puffs inhalation Q4-6H PRN amlodipine 2.5 mg PO DAILY aspirin 81 mg PO DAILY atorvastatin 80 mg PO DAILY baclofen 10 mg PO BID clopidogrel 75 mg PO DAILY docusate sodium 100 mg PO QAM ergocalciferol (vitamin D2) (Vitamin D2) 1,250 mcg PO QWEEK ezetimibe 10 mg PO QAM fluticasone propion-salmeterol 115-21 mcg/actuation (Advair HFA) 2 puffs inhalation Q12H fluticasone propionate 50 mcg/actuation 2 sprays intranasal DAILY hydrocortisone 2.5% (Proctozone-HC) 1 appl NE BID PRN isosorbide mononitrate ER 60 mg PO DAILY metoprolol tartrate 100 mg PO BID 90 days multivitamin with folic acid 400 mcg (Daily-Maddi (with folic acid)) 1 tab PO QAM naloxone 4 mg/actuation 0 sprays intranasal nicotine (polacrilex) 4 mg PO 3XD PRN nitroglycerin 0.4 mg sublingual Q5M PRN oxycodone-acetaminophen 5-325 mg (Percocet) 1 tab PO Q6H PRN pantoprazole 20 mg PO DAILY simethicone (Gas Relief (simethicone)) 125 mg PO TID-QID PRN tamsulosin 0.4 mg PO BEDTIME tramadol 50 mg PO Q6H PRN HPI S/P excision Lg lipoma posterior neck HPI Details He underwent excision of a large lipoma on the posterior neck under anesthesia last 01/15/2024. He tolerated procedure well. He currently feels well and denies significant complaints. [facility] Medical History Hemorrhoids Acid reflux Fibromyalgia Herniated lumbar intervertebral disc Herniated cervical disc Hx of osteoarthritis Bilateral carpal tunnel syndrome Hx of renal calculi Hx of migraine headaches Anxiety and depression Sleep apnea Smoker Asthma Myocardial infarction Elevated cholesterol CAD (coronary artery disease) HTN (hypertension) Surgical History Status post excision of lipoma Hx of colonoscopy History of cardiac cath History of esophagogastroduodenoscopy (EGD) Hx of tonsillectomy Hx of umbilical hernia repair H/O lithotripsy History of PTCA Family History Mother Lung cancer Father Prostate cancer Social History Household Members: Significant Other and Family Housing: House Are you a primary campground caretaker to a significant other at home: No Do you presently have visiting nurse or other home services: No 75 years or older and lives alone: No Alcohol intake: current Alcohol intake frequency: holidays/special occasions only Patient Tobacco Use Status: Current everyday Tobacco user Tobacco use type: Cigarette Cigarette Packs Per Day: 0.5 Cigarettes Per Day: 10 Years Smoked: 40 Current occupational status: employed 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 Review of Systems Const Denies chills and Denies fever(s) Card Denies chest pain, Denies dyspnea and Denies dyspnea on exertion Resp Denies cough, Denies dyspnea and Denies dyspnea on exertion GI Denies hematochezia and Denies change in bowel habits Denies hematuria and Denies difficulty urinating Musc Denies back pain and Denies limited range of motion Neuro Denies focal weakness and Denies convulsions Psych Denies depression and Denies mood swings Physical Exam Vital Signs: Last Vital Signs Pulse 68 01/24/24 13:18 BP 135/78 01/24/24 13:18 Const General: comfortable and no acute distress HEENT Other: Excision site on the posterior neck is well healed, not infected, no discharge, no cellulitis Resp Effort & Inspection: normal respiratory effort Assessment & Plan Assessment & Plan (1) Lipoma of neck: Code(s): D17.0 - Benign lipomatous neoplasm of skin and subcutaneous tissue of head, face and neck Plan: Status post excision. The incision is well healed. His path report shows a lipoma. 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 He can otherwise follow up on a p.r.n. basis. Coding Level of Care Code Global (18936) Diagnoses Lipoma of neck D17.0
[2024-01-24 13:18] VITALS: BP 135/78; PULSE 68
== END 2024-01-24 13:29 | disposition home or self-care (01) ==
PROVIDERS: PCP Internal Medicine Geriatric Medicine; Visit Provider Surgery
DX: D17.0 Benign lipomatous neoplasm of skin and subcutaneous tissue of head, face and neck (principal)
CPT/HCPCS: 99024

== ENCOUNTER → 2024-01-24 13:04 | Outpatient (BNVA) | payer MEDICAID, SELFPAY | PROVIDERS: PCP Internal Medicine Geriatric Medicine; Visit Provider Surgery | DX: Z48.817 Encounter for surgical aftercare following surgery on the skin and subcutaneous tissue (principal); Z98.890 Other specified postprocedural states | CPT/HCPCS: 99212 ==

== ENCOUNTER 2024-02-06 12:19 | Outpatient (REF) | payer MEDICAID, SELFPAY ==
[2024-02-06 13:14] LABS: MANUAL DIFF FLAG NO
[2024-02-06 13:32] LABS: Basophils Absolute Auto 0.1 X10*3/uL (0.0-0.2); Basophils Percent Auto 0.6 % (0-2); Eosinophils Absolute Auto 0.2 X10*3/uL (0.0-0.4); Eosinophils Percent Auto 2.7 % (0-4); Hematocrit 43.7 % (42.0-52.0); Hemoglobin 14.1 g/dl (14.0-18.0); Imm Gran Abs Auto 0.03 X10*3/uL (0.00-0.03); Imm Gran Pct Auto 0.4 % (0.0-0.4); Lymphocytes Absolute Auto 2.4 X10*3/uL (1.2-4.9); Lymphocytes Percent Auto 29.1 % (20-40); Mean Corpuscular HGB Conc 32.3 g/dl (31.0-36.0); Mean Corpuscular Hemoglobin 28.8 pg (27.0-33.0); Mean Corpuscular Volume 89.4 fL (80.0-98.0); Mean Platelet Volume 11.4 fL (9.4-12.4); Monocytes Absolute Auto 0.7 X10*3/uL (0.1-1.2); Monocytes Percent Auto 8.3 % (2-11); Neutrophils Absolute Auto 4.9 x10*3/uL (2.0-8.3); Neutrophils Percent Auto 58.9 % (45-73); Platelet Count 290 X10*3/uL (160-400); Red Blood Count 4.89 X10*6/uL (4.60-5.80); Red Cell Distribution Width 13.9 % (11.0-16.0); White Blood Count 8.2 X10*3/uL (4.8-10.8)
[2024-02-06 14:09] LABS: Alanine Aminotransferase 22 U/L (0-40); Alkaline Phosphatase 80 U/L (39-117); Anion Gap 10 (12-20); Aspartate Amino Transferase 18 U/L (5-37); Bilirubin Total 0.5 mg/dL (0.0-1.0); Blood Urea Nitrogen 16 mg/dL (9-16); Calcium 9.5 mg/dL (8.4-10.2); Carbon Dioxide 28 mmol/L (22-29); Chloride 109 mmol/L (96-108); Cholesterol 238 mg/dL (<200); Estimated Glomerular Filt Rate > 60; Glucose Random 89 mg/dL (60-115); HDL Cholesterol 31 mg/dL (>40); LDL Cholesterol Calculated 177 mg/dL (<100); Potassium 4.6 mmol/L (3.3-5.1); Sodium 142 mmol/L (135-145); Total Protein 7.2 g/dL (6.5-8.0); Triglycerides 154 mg/dL (<150)
[2024-02-07 04:31] LABS: ~HepC Num1 0.16 S/CO (0.00-0.79); ~Hepatitis C Antibody Nonreactive (Nonreactive)
== END 2024-02-06 12:20 | disposition home or self-care (01) ==
LOC: HO.HHCL 12:19
PROVIDERS: Visit Provider Internal Medicine Geriatric Medicine
DX: R73.03 Prediabetes (principal); I25.110 Atherosclerotic heart disease of native coronary artery with unstable angina pectoris; J43.8 Other emphysema; G47.33 Obstructive sleep apnea (adult) (pediatric); M47.816 Spondylosis without myelopathy or radiculopathy, lumbar region; F17.209 Nicotine dependence, unspecified, with unspecified nicotine-induced disorders; Z11.59 Encounter for screening for other viral diseases
CPT/HCPCS: 36415; 80053; 80061; 85025; 86803

== ENCOUNTER 2024-02-12 06:44 | Outpatient (REF) | payer MEDICAID, SELFPAY ==
--- NOTE | ~2024-02-12 | FL_ITS ---
EXAMINATION: XR FLUOROSCOPY WITH IMAGES CLINICAL INFORMATION: Lumbar radiculopathy. COMPARISON: None available. TECHNIQUE: Fluoroscopy Supervised By: Dr. Anny Razo. Fluoroscopy Time: 0.4 minutes. Cumulative Dose: 8.69 mGy. DAP: 0.138 mGym2. Images: 2. FINDINGS: The submitted images show an injection needle and injected contrast in the vicinity of the L3-L4 right neural foramen. FL/FL guidance in treatment room IMPRESSION: Intraoperative fluoroscopic guidance is provided during lumbar spine pain management procedure. Please see the patient's Operative Report for full procedural details.
== END 2024-02-12 06:45 | disposition home or self-care (01) ==
LOC: CF 06:44
PROVIDERS: Visit Provider Anesthesiology
DX: M47.26 Other spondylosis with radiculopathy, lumbar region (principal); M51.36 Other intervertebral disc degeneration, lumbar region; D17.0 Benign lipomatous neoplasm of skin and subcutaneous tissue of head, face and neck; M54.2 Cervicalgia; M62.838 Other muscle spasm
CPT/HCPCS: 64483; J3301; Q9967

== ENCOUNTER 2024-02-12 12:50 | Outpatient (AMB) | payer MEDICAID, SELFPAY ==
[2024-02-12 13:21] VITALS: BP 132/80; PULSE 60; RESP 16; O2SAT 98; BMI 36.0
--- NOTE | 2024-02-12 13:21 | MHC.OFFVIS ---
Intake Vital Signs 02/12/24 13:21 02/12/24 14:03 Height 5 ft 3 in 5 ft 3 in Weight 203 lb 203 lb BMI 36.0 36.0 BP 132/80 128/76 Blood Pressure Location Lt brachial Lt brachial Position Sitting Sitting Respiration 16 16 Pulse 60 60 Pulse Source Pulse Oximeter Pulse Oximeter Pulse Oximetry (%) 98 98 Oxygen Delivery Method Room Air Room Air Comment pre-op Post-op Intake Visit Reasons: LEFT L3, L4 TFESI Allergies naproxen Adverse Reaction (Intermediate, Verified 02/12/24 14:04) kidney problems, hematuria ibuprofen Adverse Reaction (Verified 02/12/24 14:04) hematuria PFSH Medical History Hemorrhoids Acid reflux Fibromyalgia Herniated lumbar intervertebral disc Herniated cervical disc Hx of osteoarthritis Bilateral carpal tunnel syndrome Hx of renal calculi Hx of migraine headaches Anxiety and depression Sleep apnea Smoker Asthma Myocardial infarction Elevated cholesterol CAD (coronary artery disease) HTN (hypertension) Surgical History Status post excision of lipoma Hx of colonoscopy History of cardiac cath History of esophagogastroduodenoscopy (EGD) Hx of tonsillectomy Hx of umbilical hernia repair H/O lithotripsy History of PTCA Family History Mother Lung cancer Father Prostate cancer Social History Household Members: Significant Other and Family Housing: House Are you a primary child caregiver private home to a significant other at home: No Do you presently have visiting nurse or other home services: No 75 years or older and lives alone: No Alcohol intake: current Alcohol intake frequency: holidays/special occasions only Patient Tobacco Use Status: Current everyday Tobacco user Tobacco use type: Cigarette Cigarette Packs Per Day: 0.5 Cigarettes Per Day: 10 Years Smoked: 40 Current occupational status: employed 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 Physical Exam Vital Signs: Last Vital Signs Pulse 60 02/12/24 14:03 Resp 16 02/12/24 14:03 BP 128/76 02/12/24 14:03 Pulse Ox 98 02/12/24 14:03 Oxygen Delivery Method Room Air 02/12/24 14:03 BMI result Body Mass Index 36.0 Assessment & Plan Assessment & Plan (1) Lipoma of neck: Code(s): D17.0 - Benign lipomatous neoplasm of skin and subcutaneous tissue of head, face and neck (2) Cervicalgia: Code(s): M54.2 - Cervicalgia (3) Lumbar spondylosis: Code(s): M47.816 - Spondylosis without myelopathy or radiculopathy, lumbar region (4) Lumbar degenerative disc disease: Code(s): M51.36 - Other intervertebral disc degeneration, lumbar region (5) Lumbar radiculopathy: Code(s): M54.16 - Radiculopathy, lumbar region (6) Muscle spasm: Code(s): M62.838 - Other muscle spasm Plan: Transforaminal epidural steroid injection L3-L4 on the left. Informed consent was thoroughly explained to the patient before the procedure.? The patient came to the operating room.? He was positioned prone on operating table with a pillow under his abdomen.? Time-out was performed delineating correct site and side of the procedure, nature of the injection, name and date of of the patient. The lower back of the patient was prepped with ChloraPrep and draped with sterile utility towels.? C-arm was brought over the operating field and sq picture of L3 ertebra were demonstrated on the screen.? The right side was chosen as the side of the injection.? Tilting machine ipsilateral to the left at the level of L3 1st the most prominent picture of the left pedicle was obtained on the screen.? 3 mm below the level of the lowest point of the pedicle projection to the skin small amount of lidocaine 1% 3-4 cc was injected to anesthetize the skin.? After that 5 in 22 gauge Quincke point needle was inserted through the skin wheal and was advanced to were the L3-L4 foramina on anterior posterior , lateral and oblique views intermittently.? Initially the needle was found to be extra foraminal with soft tissue images delineation however the needle was withdrawn slightly and redirected slightly caudad and anterior. When tip of the needle entered foramina projection on AP view injection of the contrast was performed demonstrating epidural and perineural spread of the contrast.? The spread of the contrast live was observed on the screen. On the lateral view contrast was spread in the epidural fashion. After that injection of the treatment medicine 4 cc of lidocaine 1% mixed with Kenalog 40 mg was injected into the foramina.? Injection of the contrast and injection of the treatment medicine was observed live on the screen.? No intrathecal and no intravascular spread of the contrast was noted. After that the procedure was performed in the same very fashion on L4-5 level. Upon completion of the procedure sterile Band-Aids were applied. Patient tolerated procedure well he was taken outside of the operating room where he recovered uneventfully.? He went home without immediate complications. Plan Discussed treatment options for both his axial low back as well as radicular pain. 1. For ongoing radicular pain, will plan for Left L3-L4 TFESI with local and fluoroscopy. 2. For chronic axial low back pain will tentatively plan for diagnostic bilateral L3-L4 DR L5 medial branch blocks with local and fluoroscopy. If he has significant relief from the diagnostic blocks for his axial low back pain, will consider either therapeutic injections, Sprint PNS or RFA depending on his preference. General Surgery referral to further evaluation chronic posterior neck lipoma that has been increasing his cervical arthritic symptoms and causing difficulty and stiffness with ROM. Anticoagulation: Patient on anticoagulation (Plavix, Aspirin) and instructions given on when to pause with prescribing physician permission. Justification for interventional therapy: ? Patient with average pain > 6/10 ? Patient has exhausted conservative therapy, NSAIDs, opioids, physical therapy The risks, consequences, alternatives, and benefits of various treatment options were discussed with the patient in great detail, including conservative management, injections and procedures. Patient is aware of hyperglycemic effects of steroids. Orders: Orders FL guidance in treatment room Today M54.16 - Radiculopathy, lumbar region Coding Level of Care Code Procedure Only Diagnoses Lipoma of neck D17.0 Cervicalgia M54.2 Lumbar spondylosis M47.816 Lumbar degenerative disc disease M51.36 Lumbar radiculopathy M54.16 Muscle spasm M62.838
[2024-02-12 14:03] VITALS: BP 128/76; PULSE 60; RESP 16; O2SAT 98; BMI 36.0
== END 2024-02-12 13:52 | disposition home or self-care (01) ==
LOC: HO.PMCPRC 12:50
PROVIDERS: PCP Internal Medicine Geriatric Medicine; Visit Provider Anesthesiology
DX: M54.16 Radiculopathy, lumbar region (principal); M47.816 Spondylosis without myelopathy or radiculopathy, lumbar region; D17.0 Benign lipomatous neoplasm of skin and subcutaneous tissue of head, face and neck; M54.2 Cervicalgia; M51.36 Other intervertebral disc degeneration, lumbar region; M62.838 Other muscle spasm
CPT/HCPCS: 64483

== ENCOUNTER 2024-03-07 13:05 | Outpatient (AMB) | payer MEDICAID, SELFPAY ==
--- NOTE | 2024-03-07 13:14 | MHC.OFFVIS ---
Intake Vital Signs 03/07/24 13:15 Height 5 ft 3 in Weight 203 lb 6 oz BMI 36.0 BP 126/62 Blood Pressure Location Lt brachial Position Sitting Pulse 65 Pulse Source Pulse Oximeter Pulse Oximetry (%) 96 Oxygen Delivery Method Room Air Intake Visit Reasons: LEFT L3, L4 TFESI/02/12/24 Intake Note: Pain today 04/04 Donor Relations Associate Required: No Accompanied by: Self / Same As Patient Allergies naproxen Adverse Reaction (Intermediate, Verified 03/07/24 13:15) kidney problems, hematuria ibuprofen Adverse Reaction (Verified 03/07/24 13:15) hematuria HPI HPI Comments History of Present Illness Details Patient presents today to assess response to Left L3-L4 TFESI on 02/12/[address] Siegel. Patient reports ongoing 50% pain relief for his back and 60% for his left leg since procedure with improved daily functioning, mobility, sleep, and social interactions. Patient reports he is able to walk longer and tolerate proloned standing or sitting since procedure. He tries to incorporate daily walking as part of home exercise program. Patient reports his axial low back pain has been more prominent since injections and he would like to address this is diagnostic nerve blocks for potential stimulative or ablative treatments. Patient also reports he was seen by Dr. Ware for posterior neck lipoma and underwent lipoma excision on 01/15/24 with significant improvement in his neck symptoms. Denies any recent cough, cold, infection, fever, any significant changes in her medical history, medications or recent hospitalizations. Past Procedures: 02/12/24: Left L3-L4 TFESI-50-60% pain relief PRIOR: Patient is a pleasant 58 years old male with history of chronic low back pain with left sided radiculopathy, herniated cervical and lumbar discs, CAD with multiple cardiac stents (on Plavix) presents today for initial evaluation of neck, low back and left knee pain. Denies any recent or past trauma, injury or falls. 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 Reports neck pain due to large lump in his posterior neck for many years and has been affecting his cervical spine range of motion, causing him significant pain and stiffness especially with right lateral rotation and bending. Patient is interesting in surgical consultation for this. His back pain is axial and also radiates into his left thigh and lateral hip with associated numbness, tingling, left thigh and left knee pain, and thigh weakness. He denies any pain radiating down past left knee into his ankle or foot. Patient also presents with localized tenderness in the projection of left sacroiliac joint area and positive provocative testing. He reports left knee pain with crepitating on flexion, climbing stairs or pivoting. Patient denies previous spine surgery but has undergone several back injections for his back and left leg pain in 2010 at [facility] and completed physical therapy 2 years ago in [place], [place] without any improvement in his symptoms or functioning. Pain affects his daily activities, functioning, sleep, social interactions, work on quality of life. Denies any fever, abdominal pain, weight loss, foot drop, bladder or bowel dysfunction, or saddle anesthesia. Location Lower back radiates to right hip and anterior thigh; posterior neck pain Duration Chronic pain for> 25 years Characteristics of symptom or complaint Aching, radiating, stabbing, pinching, shooting, tingling Aggravating or associated factors Walking, lifting, bending, twisting, climbing stairs, pulling Relieving factors Rest, sitting, heat, Tylenol, Percocet Treatment PT, injection at [facility] in 2010 -no relief PFSH Medical History Hemorrhoids Acid reflux Fibromyalgia Herniated lumbar intervertebral disc Herniated cervical disc Hx of osteoarthritis Bilateral carpal tunnel syndrome Hx of renal calculi Hx of migraine headaches Anxiety and depression Sleep apnea Smoker Asthma Myocardial infarction Elevated cholesterol CAD (coronary artery disease) HTN (hypertension) Surgical History Status post excision of lipoma Hx of colonoscopy History of cardiac cath History of esophagogastroduodenoscopy (EGD) Hx of tonsillectomy Hx of umbilical hernia repair H/O lithotripsy History of PTCA Family History Mother Lung cancer Father Prostate cancer Social History Household Members: Significant Other and Family Housing: House Are you a primary anesthesiologist and critical care to a significant other at home: No Do you presently have visiting nurse or other home services: No 75 years or older and lives alone: No Alcohol intake: current Alcohol intake frequency: holidays/special occasions only Patient Tobacco Use Status: Current everyday Tobacco user Tobacco use type: Cigarette Cigarette Packs Per Day: 0.5 Cigarettes Per Day: 10 Years Smoked: 40 Current occupational status: employed 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 Alert and oriented. Mood and affect appropriate. Follows and participates in conversation appropriately. Respiratory effort is unlabored. No cough. No nasal discharge. Able to transition from sit to stand unassisted. Ambulates with bilaterally normal heel strike and toe off. Neck Neck: Yes full ROM, Yes no lymphadenopathy, Yes supple, No anterior neck swelling and Yes no JVD Back/Spine/Pelvis Other: Limited lumbar ROM. Lumbar extension reproduces moderate pain, flexion reproduces mild pain. 5/5 right and 4/5 left strength of quadriceps bilaterally as well as flexion/dorsiflexion of bilateral feet against resistance. 2+ pedal pulses bilaterally. Facet loading test positive bilaterally. Kristen sign, Clyde?s, Gaenslen, Pelvic compression and Stinchfield tests are positive left. No groin pain with I/E hip rotations. Cervical Spine: cervical ROM normal, Cervical spine scars present (posterior) and No Cervical spine tenderness Thoracic/Lumbar Spine: thoracic and lumbar spine normal to inspection, No Thoracic/lumbar spine scar(s), Lasegue's sign negative, pain with thoraco-lumbar ROM, thoraco-lumbar ROM limited, No thoracic spinal tenderness and lumbar spinal tenderness at L3, at L4 and at L5 Pelvis: no buttock tenderness Sacroiliac joints: bilaterally tender to palpation Results Reviewed Results Reviewed: MR LUMBAR SPINE WITHOUT CONTRAST 05/25/23 CLINICAL INFORMATION: Low back pain. COMPARISON: None available. TECHNIQUE: Multiplanar, multisequence imaging was obtained. FINDINGS: VERTEBRAL BODIES AND PARASPINAL STRUCTURES: The marrow signal is within normal limits. There is ykckaxex-gd-[id number] disc space narrowing with anterior endplate spurring partially visualized on sagittal imaging at the T10-T11 and T11-T12 levels. Left posterolateral disc bulge with facet arthropathy at the T10-T11 level results in significant left foraminal encroachment, only partially visualized. There are no compression fractures or subluxations. The paraspinal soft tissues appear normal. There are mild degenerative changes of the sacroiliac joints bilaterally. CONUS MEDULLARIS AND CAUDA EQUINE: The distal cord, conus tip, and cauda equina nerve roots appear normal. SPINAL LEVELS: L1-L2: Mild posterior disc bulge and mild facet arthropathy. Bulging disc mildly impresses upon the ventral thecal sac. No central canal stenosis or foraminal narrowing. L2-L3: Left posterolateral disc protrusion visible with mild impression upon the exiting left L2 nerve root. No central canal stenosis. L3-L4: Broad-based disc bulge without central canal stenosis. Bulging disc posterolaterally on both sides impresses upon the exiting L3 nerve roots. Moderate right and pltp-me-syhrzzws left foraminal narrowing. L4-L5: Generalized disc bulge and mild facet arthropathy without central canal stenosis. Bulging disc contributes to moderate bilateral foraminal encroachment and mild impression upon the exiting L4 nerve roots. L5-S1: Mild disc bulge with a posterior annular fissure which mildly impresses upon the right S1 nerve root. Mild facet arthropathy. No central canal stenosis or foraminal narrowing. IMPRESSION: 1. Left posterolateral disc protrusion at the L2-L3 level with mild impression upon the left L2 nerve root. 2. Broad-based disc bulge at the L3-L4 level with bulging disc impressing upon both exiting L3 nerve roots. Moderate right foraminal narrowing. 3. Disc bulge at the L4-L5 level with moderate bilateral foraminal encroachment and mild impression upon the exiting L4 nerve roots. 4. Posterior annular fissure at the L5-S1 level mildly impressing upon the right S1 nerve root. 5. Moderate degenerative disc disease at the T10-T11 and T11-T12 levels with significant left foraminal encroachment at the T10-T11 level. XR CERVICAL SPINE 04/25/23 CLINICAL INFORMATION: Neck pain and radiculopathy COMPARISON: None available. TECHNIQUE: 6 views of the cervical spine, inclusive of bilateral oblique and swimmer's views, were obtained. FINDINGS: Bone alignment is normal. No fracture or dislocation. Degenerative spondylosis from C3-C4 to C6-C7. Normal disc spaces. Right-sided neuroforaminal narrowing from bony osteophyte from C4-C5 to C6-C7. Left-sided neuroforaminal narrowing from bony osteophyte from C3-C4 to C5 6. Prevertebral soft tissues are normal. IMPRESSION: Multilevel degenerative changes. Assessment & Plan Assessment & Plan (1) Lumbar spondylosis: Code(s): M47.816 - Spondylosis without myelopathy or radiculopathy, lumbar region (2) Lumbar degenerative disc disease: Code(s): M51.36 - Other intervertebral disc degeneration, lumbar region (3) Lumbar radiculopathy: Code(s): M54.16 - Radiculopathy, lumbar region (4) Muscle spasm: Code(s): M62.838 - Other muscle spasm Plan Patient is one month status post Left L3-L4 TFESI with improved left leg symptoms, improved ADLs, functioning and mobility. For ongoing axial low back pain, we will proceed with diagnostic bilateral L3-L4 DR L5 medial branch blocks with local and fluoroscopy. If he has significant relief from the diagnostic blocks for his axial low back pain, will consider either therapeutic injections, Sprint PNS or RFA depending on his preference. Expectations, risks and benefits were reviewed. Patient is aware he will be contacted to schedule this procedure. All questions were answered and the patient is in agreement of plan. Follow-up after injections and sooner as needed. Anticoagulation: Patient on anticoagulation (Plavix, Aspirin) and instructions given on when to pause with prescribing physician permission. Justification for interventional therapy: ? Patient with average pain > 6/10 ? Patient has exhausted conservative therapy, NSAIDs, opioids, physical therapy The risks, consequences, alternatives, and benefits of various treatment options were discussed with the patient in great detail, including conservative management, injections and procedures. Coding Level of Care Code Est Pt Level 3 (46366) Diagnoses Lumbar spondylosis M47.816 Lumbar degenerative disc disease M51.36 Lumbar radiculopathy M54.16 Muscle spasm M62.838
[2024-03-07 13:15] VITALS: BP 126/62; PULSE 65; O2SAT 96; BMI 36.0
== END 2024-03-07 14:02 | disposition home or self-care (01) ==
PROVIDERS: PCP Internal Medicine Geriatric Medicine; Visit Provider Nurse Practitioner Family
DX: M47.816 Spondylosis without myelopathy or radiculopathy, lumbar region (principal); M51.36 Other intervertebral disc degeneration, lumbar region; M54.16 Radiculopathy, lumbar region; M62.838 Other muscle spasm
CPT/HCPCS: 99213

== ENCOUNTER → 2024-03-07 13:05 | Outpatient (BNVA) | payer MEDICAID, SELFPAY | PROVIDERS: PCP Internal Medicine Geriatric Medicine; Visit Provider Nurse Practitioner Family | DX: M47.816 Spondylosis without myelopathy or radiculopathy, lumbar region (principal); M51.36 Other intervertebral disc degeneration, lumbar region; M54.16 Radiculopathy, lumbar region; M62.838 Other muscle spasm | CPT/HCPCS: 99212 ==

== ENCOUNTER 2024-03-19 14:51 | Outpatient (AMB) | payer MEDICAID, SELFPAY ==
--- NOTE | 2024-03-19 14:54 | MHC.OFFVIS ---
Vital Signs 03/19/24 15:00 Height 5 ft 3 in Weight 205 lb 2 oz BMI 36.3 BP 120/68 Blood Pressure Location Lt brachial Position Sitting Pulse 67 Pulse Source Pulse Oximeter Pulse Oximetry (%) 96 Oxygen Delivery Method Room Air Intake Visit Reasons: Obstructive sleep apnea Allergies naproxen Adverse Reaction (Intermediate, Verified 03/19/24 15:03) kidney problems, hematuria ibuprofen Adverse Reaction (Verified 03/19/24 15:03) hematuria HPI HPI Obstructive sleep apnea: Details: Trenton is a pleasant 58 year male current 1/2 ppd smoker with a 40+ pack year history, with underlying asthma/COPD overlap, pulmonary nodules, ASHLEE on CPAP therapy and CAD s/p stents followed by cardiology. At the last visit he had increased Advair to 2 inhalations BID but feels this is still suboptimal. He continues with chest tightness, dyspnea on exertion and wheezing. He denies any cough. Today he presents to review CPAP compliance. He reports since using he has noticed an improvement in daytime fatigue, snoring and more restful sleep. [facility] Medical History Hemorrhoids Acid reflux Fibromyalgia Herniated lumbar intervertebral disc Herniated cervical disc Hx of osteoarthritis Bilateral carpal tunnel syndrome Hx of renal calculi Hx of migraine headaches Anxiety and depression Sleep apnea Smoker Asthma Myocardial infarction Elevated cholesterol CAD (coronary artery disease) HTN (hypertension) Surgical History Status post excision of lipoma Hx of colonoscopy History of cardiac cath History of esophagogastroduodenoscopy (EGD) Hx of tonsillectomy Hx of umbilical hernia repair H/O lithotripsy History of PTCA Family History Mother Lung cancer Father Prostate cancer Social History Household Members: Significant Other and Family Housing: House Are you a primary child care leader to a significant other at home: No Do you presently have visiting nurse or other home services: No 75 years or older and lives alone: No Alcohol intake: current Alcohol intake frequency: holidays/special occasions only Patient Tobacco Use Status: Current everyday Tobacco user Tobacco use type: Cigarette Cigarette Packs Per Day: 0.5 Cigarettes Per Day: 10 Years Smoked: 40 Current occupational status: employed 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 Review of Systems Const Denies chills, Denies excessive sweating, Denies fever(s), Denies headache(s) and Denies night sweats Eyes Denies dry eyes, Denies irritation and Denies itchy eyes ENT Reports Normal hearing present, Denies headache(s), Denies nasal congestion, Denies nasal discharge, Denies post nasal drip and Denies sore throat Card Denies chest pain, Denies chest pain at rest, Denies chest pain with activity, Denies claudication, Denies leg edema and Denies orthopnea Resp Denies excessive phlegm production, Denies pain on inspiration, Denies pain with cough and Denies stridor Musc Denies myalgias Neuro Reports Normal hearing present and Denies headache(s) Endo Denies excessive sweating Lino/Lymph Denies lymphadenopathy Aller/Immun Denies itchy eyes and Denies seasonal rhinorrhea Physical Exam Vital Signs: Last Vital Signs Pulse 67 03/19/24 15:00 BP 120/68 03/19/24 15:00 Pulse Ox 96 03/19/24 15:00 Oxygen Delivery Method Room Air 03/19/24 15:00 BMI result Body Mass Index 36.3 Const General: cooperative, healthy appearing, comfortable, no acute distress, well developed and alert Nutritional Appearance: obese Orientation/consciousness: patient oriented x3 Limitations: no limitations HEENT Head: Yes normal to inspection, Yes normocephalic and Yes atraumatic Ears: hearing grossly normal bilaterally and external ears normal Eyes General: appearance normal, both eyes and all related structures Eyelids: Yes eyelids normal Sclerae: sclerae normal EOM: EOMs intact bilaterally Neck Neck: Yes normal visual inspection and Yes no lymphadenopathy Lymphatic: no lymphadenopathy noted Chest Chest palpation & inspection: normal inspection of the chest Resp Effort & Inspection: normal respiratory effort, able to speak in complete sentences, no audible wheezes, no cough, no stridor, not tachypneic, no tripod positioning and no use of accessory muscles Auscultation: clear to auscultation bilaterally Cardio Jugular venous distension: no JVD Rate: regular rate Rhythm: regular rhythm Skin Other: warm, dry General skin exam: no rashes or lesions noted Neuro General: patient oriented x3 Cranial nerves: Yes Normal hearing present Cognition (Neuro): normal cognition Gait exam (Neuro): Normal gait present Extrem General: Yes normal to inspection, Yes capillary refill normal, Yes no clubbing, cyanosis or edema and Yes no pedal edema Psych Appearance: grossly normal and well kempt Speech and movement: Normal speech and movement present and Clear speech present Affect: normal affect Attitude: cooperative Thought process: Normal thought process present Thought content: Normal thought content present Insight: Good insight present (Psych) Judgement: Good judgement present (Psych) Assessment & Plan Assessment & Plan (1) Obstructive sleep apnea: Code(s): G47.33 - Obstructive sleep apnea (adult) (pediatric) Category: Medical (2) COPD (chronic obstructive pulmonary disease): Code(s): J44.9 - Chronic obstructive pulmonary disease, unspecified Category: Medical (3) Tobacco abuse: Code(s): Z72.0 - Tobacco use Category: Medical (4) Nocturnal hypoxemia: Code(s): G47.34 - Idiopathic sleep related nonobstructive alveolar hypoventilation Category: Medical (5) Multiple pulmonary nodules: Code(s): R91.8 - Other nonspecific abnormal finding of lung field Category: Medical Plan Reviewed compliance report and patient has not met compliance criteria, however he is eager to be more compliance. He notes when he uses, his symptoms are significantly improved. He did note that he will often fall asleep prior to placing machine on but will attempt to be more compliant. He has been using Advair with suboptimal relief, will switch to Trelegy. Discussed smoking cessation, patient not ready to quit at this time. Will follow up in three months to review response or sooner if needed. All questions were answered and patient is in agreement of plan. Medications: New thuwjulciqz-vtluafprj-riuejubf 200-62.5-25 mcg (Trelegy Ellipta) 1 inh inhalation DAILY 60 ea 3RF Discontinued fluticasone propion-salmeterol 115-21 mcg/actuation (Advair HFA) Discontinued Reason: Patient Completed Course 2 puffs inhalation Q12H 12 grams 3RF Coding Level of Care Code Est Pt Level 4 (29394) Diagnoses Obstructive sleep apnea G47.33 COPD (chronic obstructive pulmonary disease) J44.9 Tobacco abuse Z72.0 Nocturnal hypoxemia G47.34 Multiple pulmonary nodules R91.8
[2024-03-19 15:00] VITALS: BP 120/68; PULSE 67; O2SAT 96; BMI 36.3
== END 2024-03-19 15:31 | disposition home or self-care (01) ==
PROVIDERS: PCP Internal Medicine Geriatric Medicine; Visit Provider Nurse Practitioner Family
DX: G47.33 Obstructive sleep apnea (adult) (pediatric) (principal); J44.9 Chronic obstructive pulmonary disease, unspecified; Z72.0 Tobacco use; G47.34 Idiopathic sleep related nonobstructive alveolar hypoventilation; R91.8 Other nonspecific abnormal finding of lung field
CPT/HCPCS: 99214

== ENCOUNTER → 2024-03-19 14:51 | Outpatient (BNVA) | payer MEDICAID, SELFPAY | PROVIDERS: PCP Internal Medicine Geriatric Medicine; Visit Provider Nurse Practitioner Family | DX: G47.33 Obstructive sleep apnea (adult) (pediatric) (principal); G47.34 Idiopathic sleep related nonobstructive alveolar hypoventilation; J44.9 Chronic obstructive pulmonary disease, unspecified; R91.8 Other nonspecific abnormal finding of lung field; F17.210 Nicotine dependence, cigarettes, uncomplicated | CPT/HCPCS: 99212 ==

== ENCOUNTER 2024-05-21 15:28 | Outpatient (AMB) | payer MEDICAID, SELFPAY ==
[2024-05-21 15:41] VITALS: BP 110/64; PULSE 71; O2SAT 96; BMI 36.0
--- NOTE | 2024-05-21 15:41 | A.OFFVIS_ITS ---
Vital Signs 05/21/24 15:41 Height 5 ft 3 in Weight 203 lb 8 oz BMI 36.0 BP 110/64 Blood Pressure Location Rt brachial Position Sitting Pulse 71 Pulse Source Pulse Oximeter Pulse Oximetry (%) 96 Oxygen Delivery Method Room Air Intake Visit Reasons: Obstructive sleep apnea Allergies naproxen Adverse Reaction (Intermediate, Verified 05/21/24 15:43) kidney problems, hematuria ibuprofen Adverse Reaction (Verified 05/21/24 15:43) hematuria HPI HPI Obstructive sleep apnea: Details: Trenton is a pleasant 58 year male current 1/2 ppd smoker with a 40+ pack year history, with underlying asthma/COPD overlap, pulmonary nodules, ASHLEE on CPAP therapy and CAD s/p stents followed by cardiology. At the last visit he had reported suboptimal control on Advair and switched to Breo/Incruse. Unfortunately, he continues to report chest tightness, dyspnea on exertion and wheezing. He denies cough. He denies any visits to urgent care or hospitalizations since the last visit. He reports compliance with CPAP therapy however this is not reflected in the compliance report. [facility] Medical History Hemorrhoids Acid reflux Fibromyalgia Herniated lumbar intervertebral disc Herniated cervical disc Hx of osteoarthritis Bilateral carpal tunnel syndrome Hx of renal calculi Hx of migraine headaches Anxiety and depression Sleep apnea Smoker Asthma Myocardial infarction Elevated cholesterol CAD (coronary artery disease) HTN (hypertension) Surgical History Status post excision of lipoma Hx of colonoscopy History of cardiac cath History of esophagogastroduodenoscopy (EGD) Hx of tonsillectomy Hx of umbilical hernia repair H/O lithotripsy History of PTCA Family History Mother Lung cancer Father Prostate cancer Social History Household Members: Significant Other and Family Housing: House Are you a primary medicare biller to a significant other at home: No Do you presently have visiting nurse or other home services: No 75 years or older and lives alone: No Alcohol intake: current Alcohol intake frequency: holidays/special occasions only Patient Tobacco Use Status: Current everyday Tobacco user Tobacco use type: Cigarette Cigarette Packs Per Day: 0.5 Cigarettes Per Day: 10 Years Smoked: 40 Current occupational status: employed 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[employer] Review of Systems Const Denies chills, Denies excessive sweating, Denies fever(s), Denies headache(s) and Denies night sweats Eyes Denies dry eyes, Denies irritation and Denies itchy eyes ENT Reports Normal hearing present, Denies headache(s), Denies nasal congestion, Denies nasal discharge, Denies post nasal drip and Denies sore throat Card Denies chest pain, Denies chest pain at rest, Denies chest pain with activity, Denies claudication, Denies leg edema and Denies orthopnea Resp Denies excessive phlegm production, Denies pain on inspiration, Denies pain with cough and Denies stridor Musc Denies myalgias Neuro Reports Normal hearing present and Denies headache(s) Endo Denies excessive sweating Lino/Lymph Denies lymphadenopathy Aller/Immun Denies itchy eyes and Denies seasonal rhinorrhea Physical Exam Vital Signs: Last Vital Signs Pulse 71 05/21/24 15:41 BP 110/64 05/21/24 15:41 Pulse Ox 96 05/21/24 15:41 Oxygen Delivery Method Room Air 05/21/24 15:41 BMI result Body Mass Index 36.0 Const General: cooperative, healthy appearing, comfortable, no acute distress, well developed and alert Nutritional Appearance: obese Orientation/consciousness: patient oriented x3 Limitations: no limitations HEENT Head: Yes normal to inspection, Yes normocephalic and Yes atraumatic Ears: hearing grossly normal bilaterally and external ears normal Eyes General: appearance normal, both eyes and all related structures Eyelids: Yes eyelids normal Sclerae: sclerae normal EOM: EOMs intact bilaterally Neck Neck: Yes normal visual inspection and Yes no lymphadenopathy Lymphatic: no lymphadenopathy noted Chest Chest palpation & inspection: normal inspection of the chest Resp Effort & Inspection: normal respiratory effort, able to speak in complete sentences, no audible wheezes, no cough, no stridor, not tachypneic, no tripod positioning and no use of accessory muscles Auscultation: diminished lung sounds Cardio Jugular venous distension: no JVD Rate: regular rate Rhythm: regular rhythm Skin Other: warm, dry General skin exam: no rashes or lesions noted Neuro General: patient oriented x3 Cranial nerves: Yes Normal hearing present Cognition (Neuro): normal cognition Gait exam (Neuro): Normal gait present Extrem General: Yes normal to inspection, Yes capillary refill normal, Yes no clubbing, cyanosis or edema and Yes no pedal edema Psych Appearance: grossly normal and well kempt Speech and movement: Normal speech and movement present and Clear speech present Affect: normal affect Attitude: cooperative Thought process: Normal thought process present Thought content: Normal thought content present Insight: Good insight present (Psych) Judgement: Good judgement present (Psych) Assessment & Plan Assessment & Plan (1) Obstructive sleep apnea: Code(s): G47.33 - Obstructive sleep apnea (adult) (pediatric) Category: Medical (2) COPD (chronic obstructive pulmonary disease): Code(s): J44.9 - Chronic obstructive pulmonary disease, unspecified Category: Medical (3) Tobacco abuse: Code(s): Z72.0 - Tobacco use Category: Medical (4) Nocturnal hypoxemia: Code(s): G47.34 - Idiopathic sleep related nonobstructive alveolar hypoventilation Category: Medical (5) Multiple pulmonary nodules: Code(s): R91.8 - Other nonspecific abnormal finding of lung field Category: Medical Plan Patient previously reported suboptimal relief with Advair and trialed on Breo/Incruse. Unfortunately, he continues to report poor relief. Will trial Trelegy. Discussed importance of compliance with CPAP therapy, patient agreeable to be more compliant. Will send for overnight oximetry on room air with CPAP therapy to assess to resolution of hypoxemia. Will follow up in three months to review response and results of chest CT or sooner if needed. All questions were answered and patient is in agreement of plan. Orders: Orders Overnight Pulse Oximetry Today G47.34 - Idiopathic sleep related nonobstructive alveolar hypoventilation Medications: New syfrqdmpnwu-aysrpnkpl-vbspxrtm 200-62.5-25 mcg (Trelegy Ellipta) 1 inh inhalation DAILY 60 ea 3RF Discontinued fluticasone furoate-vilanterol 200-25 mcg/dose (Breo Ellipta) Discontinued Reason: Patient Completed Course 1 inh inhalation DAILY 60 ea 3RF umeclidinium 62.5 mcg/actuation (Incruse Ellipta) Discontinued Reason: Patient Completed Course 1 inh inhalation DAILY 30 ea 6RF Coding Level of Care Code Est Pt Level 4 (44588) Diagnoses Obstructive sleep apnea G47.33 COPD (chronic obstructive pulmonary disease) J44.9 Tobacco abuse Z72.0 Nocturnal hypoxemia G47.34 Multiple pulmonary nodules R91.8
== END 2024-05-21 16:09 | disposition home or self-care (01) ==
PROVIDERS: PCP Internal Medicine Geriatric Medicine; Visit Provider Nurse Practitioner Family
DX: G47.33 Obstructive sleep apnea (adult) (pediatric) (principal); J44.9 Chronic obstructive pulmonary disease, unspecified; Z72.0 Tobacco use; G47.34 Idiopathic sleep related nonobstructive alveolar hypoventilation; R91.8 Other nonspecific abnormal finding of lung field
CPT/HCPCS: 99214

== ENCOUNTER → 2024-05-21 15:28 | Outpatient (BNVA) | payer MEDICAID, SELFPAY | PROVIDERS: PCP Internal Medicine Geriatric Medicine; Visit Provider Nurse Practitioner Family | DX: G47.33 Obstructive sleep apnea (adult) (pediatric) (principal); J44.9 Chronic obstructive pulmonary disease, unspecified; G47.34 Idiopathic sleep related nonobstructive alveolar hypoventilation; R91.8 Other nonspecific abnormal finding of lung field; Z72.0 Tobacco use | CPT/HCPCS: 99212 ==

== ENCOUNTER 2024-07-16 16:27 | Outpatient (REF) | payer MEDICAID, SELFPAY ==
--- NOTE | ~2024-07-16 | CT_ITS ---
EXAMINATION: CT CHEST WITHOUT CONTRAST CLINICAL INFORMATION: No unspecified abnormal lungs. COMPARISON: CT dated July 03, 2023 TECHNIQUE: Multidetector volumetric CT imaging of the chest was done. Axial MIP volume rendering provided. Sagittal and coronal reformatted images were obtained. This CT examination was performed using dose optimization techniques as appropriate, variously including the following: *Automated exposure control *Adjustment of mA and/or kV according to patient size (this includes techniques or standardized protocols for targeted exams where dose is matched to indication/reason for exam; i.e. extremities or head) *Use of iterative reconstruction technique DLP: 200 mGy-cm FINDINGS: Submitted for interpretation on 09/24/2024. LUNGS: Paraseptal emphysematous changes in the upper lobes versus honeycombing. 5 cm thin-walled pneumatocele, right middle lobe. Nonspecific less than 4 mm noncalcified pulmonary nodules, both upper lobes. No consolidation. MEDIASTINUM: No lymphadenopathy. Residual 1.5 cm abnormality in the left inferior thoracic aortic arch. No pericardial effusion. CORONARY ARTERY CALCIFICATION: Dense calcified plaques, coronary arteries. PLEURA: No pleural effusion. No pneumothorax. AXILLA: No lymphadenopathy. UPPER ABDOMEN: Aortic calcification, right hepatic lobe. OSSEOUS STRUCTURES: Multilevel spondylosis without acute fracture or listhesis. No lytic or blastic lesions. CT/CT chest wo IV con IMPRESSION: No acute airspace disease. Stable nonspecific subcentimeter pulmonary nodules. Questionable pseudoaneurysm, thoracic aortic arch. Recommend IV contrast enhanced CT aorta. Coronary artery disease. Fleischner guidelines were followed. Electronically signed by: Ciaran Anderson MD 09/24/2024 12:23 PM EDT
== END 2024-07-16 16:28 | disposition home or self-care (01) ==
LOC: HO.CT 16:27
PROVIDERS: PCP Internal Medicine Geriatric Medicine; Visit Provider Nurse Practitioner Family
DX: R91.8 Other nonspecific abnormal finding of lung field (principal); J44.9 Chronic obstructive pulmonary disease, unspecified; Z72.0 Tobacco use
CPT/HCPCS: 71250

== ENCOUNTER → 2024-07-16 16:28 | Outpatient (BNV) | payer MEDICAID, SELFPAY | PROVIDERS: PCP Internal Medicine Geriatric Medicine; Visit Provider Radiology Diagnostic Radiology | DX: R91.8 Other nonspecific abnormal finding of lung field (principal) | CPT/HCPCS: 71250 ==

== ENCOUNTER 2024-08-14 08:24 | Outpatient (REF) | payer MEDICAID, SELFPAY ==
[2024-08-14 11:28] LABS: MANUAL DIFF FLAG NO
[2024-08-14 11:56] LABS: Basophils Absolute Auto 0.1 X10*3/uL (0.0-0.2); Eosinophils Absolute Auto 0.2 X10*3/uL (0.0-0.4); Eosinophils Percent Auto 2.6 % (0-4); Hematocrit 49.2 % (42.0-52.0); Hemoglobin 15.7 g/dl (14.0-18.0); Imm Gran Abs Auto 0.02 X10*3/uL (0.00-0.03); Imm Gran Pct Auto 0.3 % (0.0-0.4); Lymphocytes Absolute Auto 1.7 X10*3/uL (1.2-4.9); Lymphocytes Percent Auto 22.6 % (20-40); Mean Corpuscular HGB Conc 31.9 g/dl (31.0-36.0); Mean Corpuscular Hemoglobin 29.8 pg (27.0-33.0); Mean Corpuscular Volume 93.4 fL (80.0-98.0); Monocytes Absolute Auto 0.6 X10*3/uL (0.1-1.2); Monocytes Percent Auto 7.9 % (2-11); Neutrophils Percent Auto 65.6 % (45-73); Platelet Count 235 X10*3/uL (160-400); Red Blood Count 5.27 X10*6/uL (4.60-5.80); White Blood Count 7.6 X10*3/uL (4.8-10.8)
[2024-08-14 12:19] LABS: Alanine Aminotransferase 30 U/L (0-40); Alkaline Phosphatase 82 U/L (39-117); Anion Gap 13 (12-20); Aspartate Amino Transferase 25 U/L (5-37); Bilirubin Total 0.3 mg/dL (0.0-1.0); Blood Urea Nitrogen 14 mg/dL (9-16); Calcium 9.6 mg/dL (8.4-10.2); Carbon Dioxide 21 mmol/L (22-29); Chloride 112 mmol/L (96-108); Estimated Glomerular Filt Rate > 60; Glucose Random 105 mg/dL (60-115); Potassium 4.7 mmol/L (3.3-5.1); Sodium 141 mmol/L (135-145); Total Protein 7.7 g/dL (6.5-8.0)
== END 2024-08-14 08:25 | disposition home or self-care (01) ==
LOC: HO.HHCL 08:24
PROVIDERS: Visit Provider Internal Medicine Geriatric Medicine
DX: R13.10 Dysphagia, unspecified (principal)
CPT/HCPCS: 36415; 80053; 85025

== ENCOUNTER 2024-08-19 15:44 | Outpatient (AMB) | payer MEDICAID, SELFPAY ==
[2024-08-19 15:46] VITALS: BP 116/70; PULSE 75; O2SAT 97; BMI 36.8
--- NOTE | 2024-08-19 15:46 | MHC.OFFVIS ---
Vital Signs 08/19/24 15:46 Height 5 ft 3 in Weight 208 lb BMI 36.8 BP 116/70 Blood Pressure Location Rt brachial Position Sitting Pulse 75 Pulse Source Pulse Oximeter Pulse Oximetry (%) 97 Oxygen Delivery Method Room Air Intake Visit Reasons: Obstructive sleep apnea Allergies naproxen Adverse Reaction (Intermediate, Verified 08/19/24 15:50) kidney problems, hematuria ibuprofen Adverse Reaction (Verified 08/19/24 15:50) hematuria HPI HPI Obstructive sleep apnea: Details: Trenton is a pleasant 58 year male current 1/2 ppd smoker with a 40+ pack year history, with underlying asthma/COPD overlap, pulmonary nodules, ASHLEE on CPAP therapy and CAD s/p stents followed by cardiology. At the last visit he was switched to Breo/Incruse and reports moderate improvement in symptoms. Unfortunately, he continues to report dyspnea on exertion and newly developed productive cough over the last few weeks with yellow sputum. He denies fevers, chills or sick contacts. He also notes that he has been unable to fill Incruse, unclear why. Today he presents to review chest CT however not officially read by radiology. [facility] Medical History Hemorrhoids Acid reflux Fibromyalgia Herniated lumbar intervertebral disc Herniated cervical disc Hx of osteoarthritis Bilateral carpal tunnel syndrome Hx of renal calculi Hx of migraine headaches Anxiety and depression Sleep apnea Smoker Asthma Myocardial infarction Elevated cholesterol CAD (coronary artery disease) HTN (hypertension) Surgical History Status post excision of lipoma Hx of colonoscopy History of cardiac cath History of esophagogastroduodenoscopy (EGD) Hx of tonsillectomy Hx of umbilical hernia repair H/O lithotripsy History of PTCA Family History Mother Lung cancer Father Prostate cancer Social History Household Members: Significant Other and Family Housing: House Are you a primary healthcare liaison to a significant other at home: No Do you presently have visiting nurse or other home services: No 75 years or older and lives alone: No Alcohol intake: current Alcohol intake frequency: holidays/special occasions only Patient Tobacco Use Status: Current everyday Tobacco user Tobacco use type: Cigarette Cigarette Packs Per Day: 0.5 Cigarettes Per Day: 10 Years Smoked: 40 Current occupational status: employed 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 Review of Systems Const Denies chills, Denies excessive sweating, Denies fever(s), Denies headache(s) and Denies night sweats Eyes Denies dry eyes, Denies irritation and Denies itchy eyes ENT Reports Normal hearing present, Denies headache(s), Denies nasal congestion, Denies nasal discharge and Denies sore throat Card Denies chest pain, Denies chest pain at rest, Denies chest pain with activity, Denies claudication, Denies leg edema and Denies paroxysmal nocturnal dyspnea Resp Denies chest congestion, Denies excessive phlegm production, Denies pain on inspiration, Denies pain with cough, Denies stridor and Denies wheezing Musc Denies myalgias Neuro Reports Normal hearing present and Denies headache(s) Endo Denies excessive sweating Lino/Lymph Denies lymphadenopathy Aller/Immun Denies itchy eyes, Denies seasonal rhinorrhea and Denies wheezing Physical Exam Vital Signs: Last Vital Signs Pulse 75 08/19/24 15:46 BP 116/70 08/19/24 15:46 Pulse Ox 97 08/19/24 15:46 Oxygen Delivery Method Room Air 08/19/24 15:46 BMI result Body Mass Index 36.8 Const General: cooperative, healthy appearing, comfortable, no acute distress, well developed and alert Nutritional Appearance: obese Orientation/consciousness: patient oriented x3 Limitations: no limitations HEENT Head: Yes normal to inspection, Yes normocephalic and Yes atraumatic Ears: hearing grossly normal bilaterally and external ears normal Eyes General: appearance normal, both eyes and all related structures Eyelids: Yes eyelids normal Sclerae: sclerae normal EOM: EOMs intact bilaterally Neck Neck: Yes normal visual inspection and Yes no lymphadenopathy Lymphatic: no lymphadenopathy noted Chest Chest palpation & inspection: normal inspection of the chest Resp Other: bibasilar inspiratory crackles Effort & Inspection: normal respiratory effort, able to speak in complete sentences, no audible wheezes, no stridor, not tachypneic, no tripod positioning and no use of accessory muscles Cardio Jugular venous distension: no JVD Rate: regular rate Rhythm: regular rhythm Skin Other: warm, dry General skin exam: no rashes or lesions noted Neuro General: patient oriented x3 Cranial nerves: Yes Normal hearing present Cognition (Neuro): normal cognition Gait exam (Neuro): Normal gait present Extrem General: Yes normal to inspection, Yes capillary refill normal, Yes no clubbing, cyanosis or edema and Yes no pedal edema Psych Appearance: grossly normal and well kempt Speech and movement: Normal speech and movement present and Clear speech present Affect: normal affect Attitude: cooperative Thought process: Normal thought process present Thought content: Normal thought content present Insight: Good insight present (Psych) Judgement: Good judgement present (Psych) Assessment & Plan Assessment & Plan (1) Obstructive sleep apnea: Code(s): G47.33 - Obstructive sleep apnea (adult) (pediatric) Category: Medical (2) COPD (chronic obstructive pulmonary disease): Code(s): J44.9 - Chronic obstructive pulmonary disease, unspecified Category: Medical (3) Tobacco abuse: Code(s): Z72.0 - Tobacco use Category: Medical (4) Nocturnal hypoxemia: Code(s): G47.34 - Idiopathic sleep related nonobstructive alveolar hypoventilation Category: Medical (5) Multiple pulmonary nodules: Code(s): R91.8 - Other nonspecific abnormal finding of lung field Category: Medical (6) Cough: Code(s): R05.9 - Cough, unspecified Category: Medical Plan Will treat bronchitic symptoms and send for CXR given bibasilar crackles. Patient aware if symptoms do not improve to call office. He did also note orthopnea, no BLE edema at this time. If no improvement would consider underlying cardiac contribution. Will call patient when CT officially read. Will follow up in 4-6 weeks or sooner if needed. All questions were answered and patient is in agreement of plan. Orders: Orders XR chest 2V 08/19/24 R05.9 - Cough, unspecified Medications: New azithromycin For 250 mg dose pack: take 500 mg today (day 1), then 250 mg for 4 days (days 2-5) PO 6 tabs 0RF ipratropium bromide administer into each nostril 2 sprays intranasal BID 30 mL 3RF Refilled umeclidinium 62.5 mcg/actuation (Incruse Ellipta) 1 inh inhalation DAILY 30 ea 6RF fluticasone furoate-vilanterol 200-25 mcg/dose (Breo Ellipta) 1 inh inhalation DAILY 60 ea 6RF albuterol sulfate 90 mcg/actuation 2 puffs inhalation Q4-6H PRN 1 ea 3RF shortness of breath or wheezing Discontinued axhftvqahkk-rjwcmpcru-cuhnhcbq 200-62.5-25 mcg Discontinued Reason: Insurance Denied 1 inh inhalation DAILY 60 ea 3RF Coding Level of Care Code Est Pt Level 4 (09432) Diagnoses Obstructive sleep apnea G47.33 COPD (chronic obstructive pulmonary disease) J44.9 Tobacco abuse Z72.0 Nocturnal hypoxemia G47.34 Multiple pulmonary nodules R91.8 Cough R05.9
== END 2024-08-19 16:17 | disposition home or self-care (01) ==
PROVIDERS: PCP Internal Medicine Geriatric Medicine; Visit Provider Nurse Practitioner Family
DX: G47.33 Obstructive sleep apnea (adult) (pediatric) (principal); J44.9 Chronic obstructive pulmonary disease, unspecified; Z72.0 Tobacco use; G47.34 Idiopathic sleep related nonobstructive alveolar hypoventilation; R91.8 Other nonspecific abnormal finding of lung field; R05.9 Cough, unspecified
CPT/HCPCS: 99214

== ENCOUNTER 2024-08-19 15:44 | Outpatient (REF) | payer MEDICAID, SELFPAY ==
--- NOTE | ~2024-08-19 | XR_ITS ---
EXAMINATION: XR chest 2V CLINICAL INFORMATION: R05.9 - Cough, unspecified COMPARISON: None TECHNIQUE: 2 views of the chest FINDINGS: Diffuse peribronchial vascular opacities may reflect edema or atypical infection. No pneumothorax. No pleural effusion. Normal cardiomediastinal silhouette. XR/XR chest 2V IMPRESSION: Diffuse peribronchial vascular opacities may reflect edema or atypical infection. Electronically signed by: Mary Jo Carter MD 08/19/2024 08:11 PM EDT
== END 2024-08-19 15:45 | disposition home or self-care (01) ==
LOC: HO.XRAY 15:44
PROVIDERS: PCP Internal Medicine Geriatric Medicine; Visit Provider Nurse Practitioner Family
DX: R05.9 Cough, unspecified (principal)
CPT/HCPCS: 71046; 99212

== ENCOUNTER 2024-08-29 14:55 | Outpatient (REF) | payer MEDICAID, SELFPAY ==
--- NOTE | 2024-08-29 14:59 | EMG_ITS ---
Chief complaint: Bilateral hand numbness Reason for referral: Evaluate for Carpal Tunnel Syndrome Referred by: Dr. Grace Procedure done: Bilateral upper extremities NCS/EMG Precautions and/or limitations: None The limb temperature was monitored continuously and remained between 32-36 degrees C during the performance of the NCS. Nerve Conduction Studies Anti Sensory Summary Table ?Stim Site NR Onset (ms) Norm Onset (ms) Peak (ms) Norm Peak (ms) O-P Amp (?V) Norm O-P Amp Site1 Site2 Delta-0 (ms) Dist (cm) Rj (m/s) Norm Rj (m/s) Left Median Anti Sensory (2nd Digit) Wrist NR <3.6 >10 Wrist 2nd Digit 14.0 Right Median Anti Sensory (2nd Digit) Wrist NR <3.6 >10 Wrist 2nd Digit 14.0 Right Radial Anti Sensory (Thumb) Forearm ? 1.6 2.1 <3.1 7.2 Forearm Thumb 1.6 0.0 Left Ulnar Anti Sensory (5th Digit) Wrist ? 0.7 2.9 <3.7 8.1 >15.0 Wrist 5th Digit 0.7 14.0 200 Right Ulnar Anti Sensory (5th Digit) Wrist ? 0.6 3.2 <3.7 22.1 >15.0 Wrist 5th Digit 0.6 14.0 233 Motor Summary Table ?Stim Site NR Onset (ms) Norm Onset (ms) O-P Amp (mV) Norm O-P Amp iAmp (mV) Amp (1st) (%) Site1 Site2 Delta-0 (ms) Dist (cm) Rj (m/s) Norm Rj (m/s) Left Median Motor (Abd Poll Brev) Wrist ? 6.5 <3.9 2.0 >4.5 2.6 100.0 Elbow Wrist 4.2 18.5 44 >45 Elbow ? 10.7 0.8 1.0 40.0 Right Median Motor (Abd Poll Brev) Wrist ? 5.5 <3.9 7.7 >4.5 9.5 100.0 Elbow Wrist 4.1 19.0 46 >45 Elbow ? 9.6 7.5 9.5 97.4 Left Ulnar Motor (Abd Dig Minimi) Wrist ? 2.7 <3.0 6.5 >5 7.5 100.0 B Elbow Wrist 3.0 18.0 60 >45 B Elbow ? 5.7 6.4 7.7 98.5 A Elbow B Elbow 1.6 10.0 63 >45 A Elbow ? 7.3 6.0 7.3 92.3 Right Ulnar Motor (Abd Dig Minimi) Wrist ? 2.9 <3.0 9.6 >5 11.2 100.0 B Elbow Wrist 3.2 18.5 58 >45 B Elbow ? 6.1 9.1 11.0 94.8 A Elbow B Elbow 1.5 10.0 67 >45 A Elbow ? 7.6 9.0 11.0 93.8 EMG ?Side Muscle Nerve Root Ins Act Fibs Psw Amp Dur Poly Recrt Int Pat Comment Right 1stDorInt Ulnar C8-T1 Nml Nml Nml Nml Nml 0 Nml Complete Right FlexCarRad Median C6-7 Nml Nml Nml Nml Nml 0 Nml Complete Right Biceps Musculocut C5-6 Nml Nml Nml Nml Nml 0 Nml Complete Right Triceps Radial C6-7-8 Nml Nml Nml Nml Nml 0 Nml Complete Right Deltoid Axillary C5-6 Nml Nml Nml Nml Nml 0 Nml Complete Left 1stDorInt Ulnar C8-T1 Nml Nml Nml Nml Nml 0 Nml Complete Left FlexCarRad Median C6-7 Nml Nml Nml Nml Nml 0 Nml Complete Left Biceps Musculocut C5-6 Nml Nml Nml Nml Nml 0 Nml Complete Left Triceps Radial C6-7-8 Nml Nml Nml Nml Nml 0 Nml Complete Left Deltoid Axillary C5-6 Nml Nml Nml Nml Nml 0 Nml Complete FINDINGS: Right median motor nerve showed prolonged distal latency, normal amplitude and normal conduction velocity. Left median motor nerve showed prolonged distal latency, small amplitude and slow conduction velocity. Bilateral median sensory nerves showed absent response. All other nerves tested were within normal. Concentric needle EMG was performed in selected muscles of the upper extremity. Study did not reveal signs of electric abnormalities as shown in the table above. IMPRESSION: 1. This is an abnormal study. 2. There is electrodiagnostic evidence for bilateral moderate-severe median neuropathy at the wrist, consistent with carpal tunnel syndrome. 3. There is no electrodiagnostic evidence for ulnar neuropathy, brachial plexopathy, or cervical radiculopathy. Thank you for your kind referral. Vidhya Esparza MD, CHARMAINE Board Certified, [place] [employer] and [employer] (ABPMR) Board Certified, [place] Board of Electrodiagnostic [employer] (ABEM) CODIN [phone] x 2 MTDD
== END 2024-08-29 14:56 | disposition home or self-care (01) ==
LOC: HO.NEURO 14:55
PROVIDERS: PCP Internal Medicine Geriatric Medicine; Visit Provider Internal Medicine Geriatric Medicine
DX: R20.0 Anesthesia of skin (principal)
CPT/HCPCS: 95886; 95911

== ENCOUNTER → 2024-08-29 14:59 | Outpatient (BNV) | payer MEDICAID, SELFPAY | PROVIDERS: PCP Internal Medicine Geriatric Medicine; Visit Provider Physical Medicine & Rehabilitation | DX: G56.03 Carpal tunnel syndrome, bilateral upper limbs (principal) | CPT/HCPCS: 95886; 95911 ==

== ENCOUNTER 2024-09-23 06:10 | Outpatient (REF) | payer MEDICAID, SELFPAY | END 2024-09-23 06:11 | disposition home or self-care (01) | LOC: CF 06:10 | PROVIDERS: Visit Provider Anesthesiology | DX: M47.816 Spondylosis without myelopathy or radiculopathy, lumbar region (principal) | CPT/HCPCS: 64493; 64494; J1100; J2003; J2795; Q9967 ==

== ENCOUNTER 2024-09-23 08:40 | Outpatient (AMB) | payer MEDICAID, SELFPAY ==
--- NOTE | 2024-09-23 09:21 | A.OFFVIS_ITS ---
Vital Signs 09/23/24 09:22 09/23/24 10:18 Height 5 ft 3 in 5 ft 3 in Weight 208 lb 208 lb BMI 36.8 36.8 BP 135/81 156/82 H Blood Pressure Location Lt brachial Lt brachial Position Sitting Sitting Respiration 16 16 Pulse 75 75 Pulse Source Pulse Oximeter Pulse Oximeter Pulse Oximetry (%) 96 98 Oxygen Delivery Method Room Air Room Air Comment pre-op pre-op Intake Visit Reasons: BILATERAL DIAGNOSTIC L3, L4, DRL5 MBB Allergies naproxen Adverse Reaction (Intermediate, Verified 09/23/24 09:24) kidney problems, hematuria ibuprofen Adverse Reaction (Verified 09/23/24 09:24) hematuria PFSH Medical History Hemorrhoids Acid reflux Fibromyalgia Herniated lumbar intervertebral disc Herniated cervical disc Hx of osteoarthritis Bilateral carpal tunnel syndrome Hx of renal calculi Hx of migraine headaches Anxiety and depression Sleep apnea Smoker Asthma Myocardial infarction Elevated cholesterol CAD (coronary artery disease) HTN (hypertension) Surgical History Status post excision of lipoma Hx of colonoscopy History of cardiac cath History of esophagogastroduodenoscopy (EGD) Hx of tonsillectomy Hx of umbilical hernia repair H/O lithotripsy History of PTCA Family History Mother Lung cancer Father Prostate cancer Social History Household Members: Significant Other and Family Housing: House Are you a primary school childcare attendant to a significant other at home: No Do you presently have visiting nurse or other home services: No 75 years or older and lives alone: No Alcohol intake: current Alcohol intake frequency: holidays/special occasions only Patient Tobacco Use Status: Current everyday Tobacco user Tobacco use type: Cigarette Cigarette Packs Per Day: 0.5 Cigarettes Per Day: 10 Years Smoked: 40 Current occupational status: employed 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 ? ?Informed consent was explained to the patient. All questions were explained and? answered.? The patient was taken inside the operating room where she was positioned prone on the operating table. Time-out was performed delineating correct site, side, the nature of the procedure, patient's allergy, . All operating room staff was participating in OR time-out procedure. ? ? The lower back was prepped with ChloraPrep and draped with sterile towels.? C- arm was brought over the operating field and sq picture of L4-, L5 vertebra and S1 AREA were delineated on the screen.? Point of interest were delineated as confluence of superior articular process of L4 and L5 vertebra bilaterally with corresponding transverse processes as well as confluence of the sacral alae bilaterally with superior articular process of S1.? The projection of the point of interest to the skin were injected with the small amount of local anesthetic lidocaine 2% mixed with ropivacaine 0.5% 1-1 approcimately 1 cc.? After that 22 gauge 3.5 inch spinal needle was driven sequentially to the points of interest in tunnel vision fashion. After needles gently contacted the bone at the point of interests the needle was injected with small amount of the contrast.? The injection of the contrast did not demonstrate any intravascular or intrathecal spread of the contrast.? After that injection of the? ropivacaine 0.5%-1cc was performed at each needle location.??after that the needles were removed and Bandaids were applied. ? Upon completion of the injections? needle was? removed and sterile Band-Aids were applied.? The patient tolerated procedure very well. Orders: Orders FL guidance in treatment room Today M47.816 - Spondylosis without myelopathy or radiculopathy, lumbar region Coding Level of Care Code Procedure Only Diagnoses Spondylosis of lumbar region without myelopathy or radiculopathy M47.816
[2024-09-23 09:22] VITALS: BP 135/81; PULSE 75; RESP 16; O2SAT 96; BMI 36.8
[2024-09-23 10:18] VITALS: BP 156/82; PULSE 75; RESP 16; O2SAT 98; BMI 36.8
== END 2024-09-23 10:05 | disposition home or self-care (01) ==
LOC: HO.PMCPRC 08:40
PROVIDERS: PCP Internal Medicine Geriatric Medicine; Visit Provider Anesthesiology
DX: M47.816 Spondylosis without myelopathy or radiculopathy, lumbar region (principal)
CPT/HCPCS: 64493; 64494

== ENCOUNTER 2024-09-29 10:00 | Outpatient (AMB) | payer MEDICAID, SELFPAY ==
--- NOTE | 2024-09-29 10:02 | A.OFFVIS_ITS ---
Vital Signs 09/29/24 10:07 Height 5 ft 3 in Weight 205 lb BMI 36.3 BP 171/75 H Blood Pressure Location Lt brachial Position Sitting Pulse 71 Pulse Source Pulse Oximeter Pulse Oximetry (%) 98 Oxygen Delivery Method Room Air Intake Visit Reasons: BILATERAL DIAGNOSTIC L3, L4, DRL5 MBB Intake Note: Pain today [employer] Receptionist Required: No Accompanied by: Self / Same As Patient Allergies naproxen Adverse Reaction (Intermediate, Verified 09/29/24 10:07) kidney problems, hematuria ibuprofen Adverse Reaction (Verified 09/29/24 10:07) hematuria Do you need a note to return to daycare/school/sports/work: Yes Return to daycare/school/sports/work/other note: work HPI Comments Details: Patient presents today to assess response to bilateral diagnostic L3-L4 DR L5 medial branch blocks on 09/23/[address] Siegel. Patient reports 20% pain relief since the procedure without significant improvement in his daily activities and functioning, mobility or sleep. Rates pain at 8/10. 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 Reports increased pain with activities, walking, lifting and bending. Patient also reports significant left knee pain is localized tenderness in his lateral and medial joint lines without swelling or effusion. He reports Percocet prescribed by PCP has been helpful for his back and knee pain. He continues to endorse moderate axial low back pain and left- sided radicular symptoms in the projection of L4-L5 distribution. Patient request therapeutic injections for his radicular back pain and left knee pain. She reports previous cortisone injections at [facility] for the pain with minimal improvement. Denies any recent cough, cold, infection, fever or other significant changes in medical history since last office visit. Past Procedures: 09/23/24: Bilateral Diagnostic L3-L4 DR L5 MBB-20% pain relief 02/12/24: Left L3-L4 TFESI-50-60% pain relief PRIOR: Patient is a pleasant 58 years old male with history of chronic low back pain with left sided radiculopathy, herniated cervical and lumbar discs, CAD with multiple cardiac stents (on Plavix) presents today for initial evaluation of neck, low back and left knee pain. Denies any recent or past trauma, injury or falls. 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 Reports neck pain due to large lump in his posterior neck for many years and has been affecting his cervical spine range of motion, causing him significant pain and stiffness especially with right lateral rotation and bending. Patient is interesting in surgical consultation for this. His back pain is axial and also radiates into his left thigh and lateral hip with associated numbness, tingling, left thigh and left knee pain, and thigh weakness. He denies any pain radiating down past left knee into his ankle or foot. Patient also presents with localized tenderness in the projection of left sacroiliac joint area and positive provocative testing. He reports left knee pain with crepitating on flexion, climbing stairs or pivoting. Patient denies previous spine surgery but has undergone several back injections for his back and left leg pain in 2010 at [facility] and completed physical therapy 2 years ago in [place], [place] without any improvement in his symptoms or functioning. Pain affects his daily activities, functioning, sleep, social interactions, work on quality of life. Denies any fever, abdominal pain, weight loss, foot drop, bladder or bowel dysfunction, or saddle anesthesia. Location Lower back radiates to right hip and anterior thigh; posterior neck pain Duration Chronic pain for> 25 years Characteristics of symptom or complaint Aching, radiating, stabbing, pinching, shooting, tingling Aggravating or associated factors Walking, lifting, bending, twisting, climbing stairs, pulling Relieving factors Rest, sitting, heat, Tylenol, Percocet Treatment PT, injection at [facility] in 2010 -no relief PFSH Medical History Hemorrhoids Acid reflux Fibromyalgia Herniated lumbar intervertebral disc Herniated cervical disc Hx of osteoarthritis Bilateral carpal tunnel syndrome Hx of renal calculi Hx of migraine headaches Anxiety and depression Sleep apnea Smoker Asthma Myocardial infarction Elevated cholesterol CAD (coronary artery disease) HTN (hypertension) Surgical History Status post excision of lipoma Hx of colonoscopy History of cardiac cath History of esophagogastroduodenoscopy (EGD) Hx of tonsillectomy Hx of umbilical hernia repair H/O lithotripsy History of PTCA Family History Mother Lung cancer Father Prostate cancer Social History Household Members: Significant Other and Family Housing: House Are you a primary home child care provider to a significant other at home: No Do you presently have visiting nurse or other home services: No 75 years or older and lives alone: No Alcohol intake: current Alcohol intake frequency: holidays/special occasions only Patient Tobacco Use Status: Current everyday Tobacco user Tobacco use type: Cigarette Cigarette Packs Per Day: 0.5 Cigarettes Per Day: 10 Years Smoked: 40 Current occupational status: employed 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 Alert and oriented. Mood and affect appropriate. Follows and participates in conversation appropriately. Respiratory effort is unlabored. No cough. Able to transition from sit to stand unassisted. Ambulates with bilaterally normal heel strike and toe off, reports imbalance and intermittent LLE weakness due to pain. Neck Neck: Yes full ROM, Yes no lymphadenopathy, Yes supple, No anterior neck swelling and Yes no JVD General: Yes no CVA tenderness Back/Spine/Pelvis Other: Limited lumbar ROM. Lumbar extension and flexion forward reproduces moderate pain. 5/5 right and 4/5 left strength of quadriceps bilaterally as well as flexion/dorsiflexion of bilateral feet against resistance. 2+ pedal pulses bilaterally. Facet loading test positive bilaterally. Kristen sign, Clyde?s, Pelvic compression and Stinchfield tests are positive left. No groin pain with I/E hip rotations. Back: no CVA tenderness Cervical Spine: cervical ROM normal, cervical muscular tenderness, Cervical spine scars present (posterior) and No Cervical spine tenderness Thoracic/Lumbar Spine: thoracic and lumbar spine normal to inspection, No Thoracic/lumbar spine scar(s), Lasegue's sign positive on the left and diffuse, pain with thoraco-lumbar ROM, paraspinal muscle tenderness on the left greater than right, thoraco-lumbar ROM limited, No thoracic spinal tenderness, lumbar spinal tenderness at L3, at L4 and at L5 and straight leg raise positive left at 50 degrees Pelvis: no buttock tenderness and no sciatic notch tenderness Sacroiliac joints: bilaterally (left>right) tender to palpation Extrem General: Yes capillary refill normal, Yes no clubbing, cyanosis or edema and Yes no calf tenderness Left lower extremity: knee (Limited ROM due to pain) Details: normal to inspection, tenderness Location: of the medial joint line and of the lateral joint line and crepitus; no swelling, no ecchymosis and no unusual warmth Results Reviewed Results Reviewed: MR LUMBAR SPINE WITHOUT CONTRAST 05/25/23 CLINICAL INFORMATION: Low back pain. COMPARISON: None available. TECHNIQUE: Multiplanar, multisequence imaging was obtained. FINDINGS: VERTEBRAL BODIES AND PARASPINAL STRUCTURES: The marrow signal is within normal limits. There is nzjgosje-jl-eepgem disc space narrowing with anterior endplate spurring partially visualized on sagittal imaging at the T10-T11 and T11-T12 levels. Left posterolateral disc bulge with facet arthropathy at the T10-T11 level results in significant left foraminal encroachment, only partially visualized. There are no compression fractures or subluxations. The paraspinal soft tissues appear normal. There are mild degenerative changes of the sacroiliac joints bilaterally. CONUS MEDULLARIS AND CAUDA EQUINE: The distal cord, conus tip, and cauda equina nerve roots appear normal. SPINAL LEVELS: L1-L2: Mild posterior disc bulge and mild facet arthropathy. Bulging disc mildly impresses upon the ventral thecal sac. No central canal stenosis or foraminal narrowing. L2-L3: Left posterolateral disc protrusion visible with mild impression upon the exiting left L2 nerve root. No central canal stenosis. L3-L4: Broad-based disc bulge without central canal stenosis. Bulging disc posterolaterally on both sides impresses upon the exiting L3 nerve roots. Moderate right and xsvl-kr-hyfaohob left foraminal narrowing. L4-L5: Generalized disc bulge and mild facet arthropathy without central canal stenosis. Bulging disc contributes to moderate bilateral foraminal encroachment and mild impression upon the exiting L4 nerve roots. L5-S1: Mild disc bulge with a posterior annular fissure which mildly impresses upon the right S1 nerve root. Mild facet arthropathy. No central canal stenosis or foraminal narrowing. IMPRESSION: 1. Left posterolateral disc protrusion at the L2-L3 level with mild impression upon the left L2 nerve root. 2. Broad-based disc bulge at the L3-L4 level with bulging disc impressing upon both exiting L3 nerve roots. Moderate right foraminal narrowing. 3. Disc bulge at the L4-L5 level with moderate bilateral foraminal encroachment and mild impression upon the exiting L4 nerve roots. 4. Posterior annular fissure at the L5-S1 level mildly impressing upon the right S1 nerve root. 5. Moderate degenerative disc disease at the T10-T11 and T11-T12 levels with significant left foraminal encroachment at the T10-T11 level. XR CERVICAL SPINE 04/25/23 CLINICAL INFORMATION: Neck pain and radiculopathy COMPARISON: None available. TECHNIQUE: 6 views of the cervical spine, inclusive of bilateral oblique and swimmer's views, were obtained. FINDINGS: Bone alignment is normal. No fracture or dislocation. Degenerative spondylosis from C3-C4 to C6-C7. Normal disc spaces. Right-sided neuroforaminal narrowing from bony osteophyte from C4-C5 to C6-C7. Left-sided neuroforaminal narrowing from bony osteophyte from C3-C4 to C5 6. Prevertebral soft tissues are normal. IMPRESSION: Multilevel degenerative changes. Assessment & Plan Assessment & Plan (1) Left knee pain: Code(s): M25.562 - Pain in left knee Category: Medical (2) Muscle spasm: Code(s): M62.838 - Other muscle spasm Category: Medical (3) Lumbar spondylosis: Code(s): M47.816 - Spondylosis without myelopathy or radiculopathy, lumbar region Category: Medical (4) Lumbar degenerative disc disease: Code(s): M51.36 - Other intervertebral disc degeneration, lumbar region Category: Medical (5) Lumbar radiculopathy: Code(s): M54.16 - Radiculopathy, lumbar region Category: Medical (6) Osteoarthritis of left knee: Code(s): M17.12 - Unilateral primary osteoarthritis, left knee Category: Medical Plan Patient is status post diagnostic lumbar MBBs without significant pain relief. He also reports left sided radicular pain and left knee pain at 8/10 with activities and walking and would like to undergo therapeutic injections for these pain generators. Schedule Left L4-L5 TFESI with local and fluoroscopy for left radicular pain and Left knee intra-articular SynviscOne injection. Expectations, risks and benefits were reviewed. Patient is aware he will be contacted to schedule these procedures. Work note provided per patient's request. All questions were answered and the patient is in agreement of plan. Follow-up after injections and sooner as needed. Anticoagulation: Patient on anticoagulation (Plavix, Aspirin) and instructions given on when to pause with prescribing physician permission. Justification for interventional therapy: ? Patient with average pain > 6/10 ? Patient has exhausted conservative therapy, NSAIDs, opioids, physical therapy The risks, consequences, alternatives, and benefits of various treatment options were discussed with the patient in great detail, including conservative management, injections and procedures. Patient is aware of hyperglycemic effects of steroids. Orders: Orders XR knee LT 3V Today M25.562 - Pain in left knee Medications: New baclofen 10 mg PO BID 60 tabs 0RF muscle spasms M62.838 - Other muscle spasm Coding Level of Care Code Est Pt Level 4 (45632) Complex EM visit Add On G2211 Diagnoses Left knee pain M25.562 Muscle spasm M62.838 Lumbar spondylosis M47.816 Lumbar degenerative disc disease M51.36 Lumbar radiculopathy M54.16 Osteoarthritis of left knee M17.12
[2024-09-29 10:07] VITALS: BP 171/75; PULSE 71; O2SAT 98; BMI 36.3
== END 2024-09-29 10:34 | disposition home or self-care (01) ==
LOC: HO.PMC 10:00
PROVIDERS: PCP Internal Medicine Geriatric Medicine; Visit Provider Nurse Practitioner Family
DX: M25.562 Pain in left knee (principal); M62.838 Other muscle spasm; M47.816 Spondylosis without myelopathy or radiculopathy, lumbar region; M51.369 Other intervertebral disc degeneration, lumbar region without mention of lumbar back pain or lower extremity pain; M54.16 Radiculopathy, lumbar region; M17.12 Unilateral primary osteoarthritis, left knee
CPT/HCPCS: 99214

== ENCOUNTER 2024-09-29 10:00 | Outpatient (REF) | payer MEDICAID, SELFPAY | END 2024-09-29 10:01 | disposition home or self-care (01) | LOC: HO.XRAY 10:00 | PROVIDERS: PCP Internal Medicine Geriatric Medicine; Visit Provider Nurse Practitioner Family | DX: M25.562 Pain in left knee (principal); M62.838 Other muscle spasm; M47.816 Spondylosis without myelopathy or radiculopathy, lumbar region; M51.369 Other intervertebral disc degeneration, lumbar region without mention of lumbar back pain or lower extremity pain; M54.16 Radiculopathy, lumbar region; M17.12 Unilateral primary osteoarthritis, left knee | CPT/HCPCS: 73562; 99212 ==

== ENCOUNTER 2024-10-17 10:22 | Outpatient (REF) | payer MEDICAID, SELFPAY ==
[2024-10-17 12:08] LABS: Cholesterol 214 mg/dL (<200); HDL Cholesterol 31 mg/dL (>40); LDL Cholesterol Calculated 151 mg/dL (<100); Triglycerides 164 mg/dL (<150)
== END 2024-10-17 10:23 | disposition home or self-care (01) ==
LOC: HO.HHCL 10:22
PROVIDERS: Visit Provider Internal Medicine Geriatric Medicine
DX: I25.110 Atherosclerotic heart disease of native coronary artery with unstable angina pectoris (principal); F17.209 Nicotine dependence, unspecified, with unspecified nicotine-induced disorders; R13.10 Dysphagia, unspecified; R05.8 Other specified cough; J44.9 Chronic obstructive pulmonary disease, unspecified
CPT/HCPCS: 36415; 80061; 99202

== ENCOUNTER 2024-10-17 14:11 | Outpatient (AMB) | payer MEDICAID, SELFPAY ==
--- NOTE | 2024-10-17 14:13 | MHC.OFFVIS ---
Vital Signs 10/17/24 14:14 Height 5 ft 3 in Weight 207 lb 3.752 oz BMI 36.7 BP 135/71 Blood Pressure Location Lt brachial Position Sitting Pulse 67 Intake Visit Reasons: Dysphagia Intake Note: [place] presents in the office as a new patient for Dysphagia. CC: HE states he is having issues swallowing but he was supposed to have a test done yesterday that he got confused and missed it - they rescheduled to dec! He has an issue where the food does not digest fully and he feels like it sits in his stomach - no diarrhea but will have constipation. When he is sitting and eating he will get a hiccup and needs to drink water fast to push the food down. 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 Reports onset of sx around 1 month ago. Reports frequent sensation of food getting stuck in his upper throat. Has to drink a fluid to help the food down. Started with solids and progressed to liquids. Also reports increased productive cough around the same time. Was supposed to follow up with Pulm last month for this but missed appt as was running late. Has not lost weight. Does smoke almost 1 PPD x 35 years. Rare etOH use. Fam hx: Mother: lung ca Father: prostate ca Colonoscopy 2020: Hyperplastic polyps. Repeat recommended 2025. PFSH Medical History Hemorrhoids Acid reflux Fibromyalgia Herniated lumbar intervertebral disc Herniated cervical disc Hx of osteoarthritis Bilateral carpal tunnel syndrome Hx of renal calculi Hx of migraine headaches Anxiety and depression Sleep apnea Smoker Asthma Myocardial infarction Elevated cholesterol CAD (coronary artery disease) HTN (hypertension) Surgical History Status post excision of lipoma Hx of colonoscopy History of cardiac cath History of esophagogastroduodenoscopy (EGD) Hx of tonsillectomy Hx of umbilical hernia repair H/O lithotripsy History of PTCA Family History Mother Lung cancer Father Prostate cancer Social History Household Members: Significant Other and Family Housing: House Are you a primary rn palliative care to a significant other at home: No Do you presently have visiting nurse or other home services: No Alcohol intake: current Alcohol intake frequency: holidays/special occasions only Patient Tobacco Use Status: Current everyday Tobacco user Tobacco use type: Cigarette Cigarette Packs Per Day: 0.5 Cigarettes Per Day: 10 Years Smoked: 40 Current occupational status: employed 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 Review of Systems Const All systems reviewed & are unremarkable except as noted in HPI and below Physical Exam Vital Signs: Last Vital Signs Pulse 67 10/17/24 14:14 BP 135/71 10/17/24 14:14 BMI result Body Mass Index 36.7 Assessment & Plan Assessment & Plan (1) Dysphagia: Code(s): R13.10 - Dysphagia, unspecified Category: Medical (2) Productive cough: Code(s): R05.8 - Other specified cough Category: Medical (3) COPD (chronic obstructive pulmonary disease): Code(s): J44.9 - Chronic obstructive pulmonary disease, unspecified Category: Medical Plan For dysphagia, barium swallow already ordered by PCP. Will try to get this booked for sooner than Dec. In addition will also need EGD for luminal evaluation. Msg sent to book this. In the meantime pt advised to cut up food into very small pieces and chew thoroughly. For productive cough with chills, will get an XR chest to r/o CAP. He was also advised to call pulm for follow up and evaluation of what appears to be likely COPD exacerbation Follow up after egd Orders: Orders XR chest 2V Today R05.8 - Other specified cough Coding Level of Care Code New Pt Level 4 (33778) Complex EM visit Add On G2211 Diagnoses Dysphagia R13.10 Productive cough R05.8 COPD (chronic obstructive pulmonary disease) J44.9
[2024-10-17 14:14] VITALS: BP 135/71; PULSE 67; BMI 36.7
== END 2024-10-17 14:49 | disposition home or self-care (01) ==
PROVIDERS: PCP Internal Medicine Geriatric Medicine; Visit Provider Internal Medicine
DX: R13.10 Dysphagia, unspecified (principal); R05.8 Other specified cough; J44.9 Chronic obstructive pulmonary disease, unspecified
CPT/HCPCS: 99204

== ENCOUNTER 2024-10-17 15:02 | Outpatient (REF) | payer MEDICAID, SELFPAY ==
--- NOTE | ~2024-10-17 | XR_ITS ---
EXAMINATION: XR CHEST CLINICAL INFORMATION: R05.8 - Other specified cough COMPARISON: X-ray dated August 19, 2024. TECHNIQUE: 2 views of the chest were obtained. FINDINGS: Patchy opacity right middle lobe. No pleural effusion or pneumothorax. Cardiomediastinal silhouette is normal in size. Multilevel thoracic spondylosis. XR/XR chest 2V IMPRESSION: Concerning airspace disease right middle lung lobe. Electronically signed by: Ciaran Anderson MD 10/17/2024 03:42 PM EST
== END 2024-10-17 15:03 | disposition home or self-care (01) ==
LOC: HO.XRAY 15:02
PROVIDERS: PCP Internal Medicine Geriatric Medicine; Visit Provider Internal Medicine
DX: R05.8 Other specified cough (principal)
CPT/HCPCS: 71046

== ENCOUNTER → 2024-10-17 15:06 | Outpatient (BNV) | payer MEDICAID, SELFPAY | PROVIDERS: PCP Internal Medicine Geriatric Medicine; Visit Provider Radiology Diagnostic Radiology | DX: R05.8 Other specified cough (principal); R91.8 Other nonspecific abnormal finding of lung field | CPT/HCPCS: 71046 ==

== ENCOUNTER 2024-10-31 14:34 | Outpatient (AMB) | payer MEDICAID, SELFPAY ==
--- NOTE | 2024-10-31 14:56 | MHC.OFFVIS ---
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 Patient had an EMG done on 08/29/2024. 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 The patient states that the symptoms are intermittent, daily, and worse at night. Patient states that the right is worse in the left. Patient did have EMG performed on 08/29/2024, but is not sure what the findings were. 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 Denies any numbness or tingling in the bilateral small fingers, and states that the numbness and tingling is primarily in the 1st 3 digits bilateral hands. No other acute complaints or concerns at this time. [facility] Medical History (Updated 10/31/24 @ 17:01 by VANE Mesa) Hemorrhoids Acid reflux Fibromyalgia Herniated lumbar intervertebral disc Herniated cervical disc Hx of osteoarthritis Bilateral carpal tunnel syndrome Hx of renal calculi Hx of migraine headaches Anxiety and depression Sleep apnea Smoker Asthma Myocardial infarction Elevated cholesterol CAD (coronary artery disease) HTN (hypertension) Surgical History Status post excision of lipoma Hx of colonoscopy History of cardiac cath History of esophagogastroduodenoscopy (EGD) Hx of tonsillectomy Hx of umbilical hernia repair H/O lithotripsy History of PTCA Family History Mother Lung cancer Father Prostate cancer Social History Household Members: Significant Other and Family Housing: House Are you a primary healthcare representative to a significant other at home: No Do you presently have visiting nurse or other home services: No Alcohol intake: current Alcohol intake frequency: holidays/special occasions only Patient Tobacco Use Status: Current everyday Tobacco user Tobacco use type: Cigarette Cigarette Packs Per Day: 0.5 Cigarettes Per Day: 10 Years Smoked: 40 Current occupational status: employed 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 Good APB muscle firing and good finger cross. Vascular: Capillary refill brisk. ROM: Patient can make a fist and extend all their digits. Skin: No lacerations or abrasions noted. General: No ecchymosis. No erythema or evidence of infection. Results Reviewed Results Reviewed: IMPRESSION: 1. This is an abnormal study. 2. There is electrodiagnostic evidence for bilateral moderate-severe median neuropathy at the wrist, consistent with carpal tunnel syndrome. 3. There is no electrodiagnostic evidence for ulnar neuropathy, brachial plexopathy, or cervical radiculopathy. Thank you for your kind referral. Vidhya Esparza MD, [facility] Assessment & Plan Assessment & Plan (1) Bilateral carpal tunnel syndrome: Code(s): G56.03 - Carpal tunnel syndrome, bilateral upper limbs Category: Medical Plan 1. Carpal tunnel syndrome, right Symptoms intermittent, daily, worse at night I educated the patient about the condition. I discussed both operative and nonoperative treatment options. The patient would like to proceed with surgery. The risks and benefits of operative treatment were discussed with the patient and the patient wishes to proceed with surgery. These risks include, but are not limited to, risk of damage to blood vessels, nerves, tendons, infection, recurrence, incomplete relief of preoperative symptoms, persistent pain, possible need for further surgery, and the risks associated with regional blocks and/or anesthesia. Plan is to take the patient to the operating room at some point in the next few weeks for the following procedures: 1. Right carpal tunnel release under local anesthesia All of the preoperative paperwork including the consent was discussed today. All of the patient's questions were answered in the clinic today. The patient understands that they will be in contact with our neurosurgical nurse practitioner to discuss scheduling their procedure. 2. Carpal tunnel syndrome, left Symptoms intermittent, daily, worse at night Patient would like to proceed with operative intervention on the right side prior to any intervention of the left, as she finds this more more bothersome Patient is educated that if he is recovering well at his right-sided surgery postop visit he can get signed up for the left at that time Patient was amenable to this plan Coding Level of Care Code New Pt Level 4 (12057) Diagnoses Bilateral carpal tunnel syndrome G56.03
== END 2024-10-31 15:40 | disposition home or self-care (01) ==
PROVIDERS: PCP Internal Medicine Geriatric Medicine
DX: G56.03 Carpal tunnel syndrome, bilateral upper limbs (principal)
CPT/HCPCS: 99204

== ENCOUNTER → 2024-10-31 14:34 | Outpatient (BNVA) | payer MEDICAID, SELFPAY | PROVIDERS: PCP Internal Medicine Geriatric Medicine | DX: G56.03 Carpal tunnel syndrome, bilateral upper limbs (principal) | CPT/HCPCS: 99212 ==

== ENCOUNTER 2024-11-05 08:49 | Outpatient (AMB) | payer MEDICAID, SELFPAY ==
[2024-11-05 08:57] VITALS: BP 130/72; PULSE 63; BMI 36.5
--- NOTE | 2024-11-05 08:57 | MHC.OFFVIS ---
Vital Signs 11/05/24 08:57 Height 5 ft 3 in Weight 206 lb 5.643 oz BMI 36.5 BP 130/72 Blood Pressure Location Lt brachial Position Sitting Pulse 63 Pulse Source Monitor Intake Visit Reasons: Follow up Intake Note: 1 yr f/up [employer] Required: No Accompanied by: Self / Same As Patient Allergies naproxen Adverse Reaction (Intermediate, Verified 10/31/24 14:56) kidney problems, hematuria ibuprofen Adverse Reaction (Verified 10/31/24 14:56) hematuria Medication List - Last Reconciled 11/05/24 by Cornelius Chavez MD albuterol sulfate 90 mcg/actuation 2 puffs inhalation Q4-6H PRN amlodipine 2.5 mg PO DAILY aspirin 81 mg PO DAILY atorvastatin 80 mg PO DAILY baclofen 10 mg PO BID clopidogrel 75 mg PO DAILY docusate sodium 100 mg PO QAM ergocalciferol (vitamin D2) (Vitamin D2) 1,250 mcg PO QWEEK ezetimibe 10 mg PO QAM fluticasone furoate-vilanterol 200-25 mcg/dose (Breo Ellipta) 1 inh inhalation DAILY fluticasone propionate 50 mcg/actuation 2 sprays intranasal DAILY hydrocortisone 2.5% (Proctozone-HC) 1 appl SD BID PRN ipratropium bromide 2 sprays intranasal BID isosorbide mononitrate ER 60 mg PO DAILY metoprolol tartrate 100 mg PO BID 90 days multivitamin with folic acid 400 mcg (Daily-Maddi (with folic acid)) 1 tab PO QAM naloxone 4 mg/actuation 0 sprays intranasal nitroglycerin 0.4 mg sublingual Q5M PRN oxycodone-acetaminophen 5-325 mg (Percocet) 1 tab PO Q6H PRN pantoprazole 20 mg PO DAILY simethicone (Gas Relief (simethicone)) 125 mg PO TID-QID PRN tamsulosin 0.4 mg PO BEDTIME umeclidinium 62.5 mcg/actuation (Incruse Ellipta) 1 inh inhalation DAILY HPI Comments Details: 59-year-old gentleman with a background history of tobacco abuse currently smoking 1 pack per day, hypertension, and known coronary artery disease with previous PCI to circumflex and right coronary artery. Last cardiac catheterization was in January 2021 when he had 2 drug-eluting stents placed to the left circumflex artery. At that time he had 40% prox LAD stenosis as well as 90% ostial diagonal stenosis. He had 40% prox RCA stenosis at that time. He is saying that he has been noticing central pressure and tightness with exertion which has been ongoing for few months. This symptoms are quite consistent and clearly exertional. Symptoms improved with rest. He has been taking medications regularly. He has been smoking for long time. He was referred for exercise test where he developed chest discomfort but did not develop EKG changes. Given ongoing symptoms decided taken cardiac catheterization. He was noted to have patent left circumflex stents and moderate disease in the right coronary artery as before. His LAD appeared 60-70% stenosed proximally which was assessed with IFR and FFR and both were abnormal. We decided to treated with drug-eluting stent with intravascular ultrasound guidance. He is here for follow-up after that. He has been doing well. No chest discomfort or significant shortness of breath. Continues to smoke half pack per day. He is trying to cut back. He has productive cough. 11/05/2024: He is here for follow-up. He continues to smoke. Denying chest pain shortness of breath. He needs carpal tunnel surgery in December. [facility] Medical History (Updated 11/05/24 @ 09:20 by Cornelius Chavez MD) Hemorrhoids Acid reflux Fibromyalgia Herniated lumbar intervertebral disc Herniated cervical disc Hx of osteoarthritis Bilateral carpal tunnel syndrome Hx of renal calculi Hx of migraine headaches Anxiety and depression Sleep apnea Smoker Asthma Myocardial infarction Elevated cholesterol CAD (coronary artery disease) HTN (hypertension) Surgical History Status post excision of lipoma Hx of colonoscopy History of cardiac cath History of esophagogastroduodenoscopy (EGD) Hx of tonsillectomy Hx of umbilical hernia repair H/O lithotripsy History of PTCA Family History Mother Lung cancer Father Prostate cancer Social History Household Members: Significant Other and Family Housing: House Are you a primary health care marketing specialist to a significant other at home: No Do you presently have visiting nurse or other home services: No 75 years or older and lives alone: No Alcohol intake: current Alcohol intake frequency: holidays/special occasions only Patient Tobacco Use Status: Current everyday Tobacco user Tobacco use type: Cigarette Cigarette Packs Per Day: 0.5 Cigarettes Per Day: 10 Years Smoked: 40 Current occupational status: employed 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 Review of Systems Const Denies chills, Denies fatigue, Denies fever(s), Denies frequent falls, Denies weakness, Denies weight gain and Denies weight loss ENT Denies dizziness Card Denies chest pain, Denies leg edema, Denies lightheadedness, Denies palpitations, Denies dyspnea and Denies dyspnea on exertion Resp Denies cough, Denies dyspnea and Denies dyspnea on exertion GI Denies hematochezia Musc Denies abnormal gait, Denies muscle weakness, Denies numbness, Denies radiating pain into limb and Denies tingling Neuro Denies abnormal gait, Denies dizziness, Denies frequent falls, Denies numbness, Denies tingling and Denies weakness Endo Denies fatigue and Denies palpitations Physical Exam Vital Signs: Last Vital Signs Pulse 63 11/05/24 08:57 BP 130/72 11/05/24 08:57 BMI result Body Mass Index 36.5 GENERAL APPEARANCE: in no acute distress, pleasant. NECK: no carotid bruit, no jugular venous distention. SKIN: no suspicious lesions, warm and dry. HEART: no murmurs, regular rate and rhythm. LUNGS: clear to auscultation bilaterally. ABDOMEN: soft, nontender. EXTREMITIES: no edema. PERIPHERAL PULSES: equal. NEUROLOGIC: No gross deficits, AAO X 3 Office Procedures EKG Details: Sinus rhythm 63 beats per minute, normal ECG, QTC 401 milliseconds. [id number], Complete Assessment & Plan Assessment & Plan (1) Stable angina: Code(s): I20.8 - Other forms of angina pectoris Category: Medical (2) Preop cardiovascular exam: Code(s): Z01.810 - Encounter for preprocedural cardiovascular examination Category: Medical Plan 59-year-old gentleman here for follow-up. He has known history of coronary artery disease with previous PCI. Last PCI was in June 2022. Clinically stable and has stable angina. Blood pressure is well controlled. He needs carpal tunnel surgery. He can proceed with intermediate risk for perioperative complications. He is currently taking aspirin and Plavix and we will be holding the Plavix for 1 week before the surgery. I have advised him not to resume the Plavix and stay on aspirin only. Follow-up in 6 months. Advised him smoking cessation again. Thank you for allowing me to participate in the care of your patient. Please feel free to contact me if you have any questions. Coding Level of Care Code Est Pt Level 4 (61306) Diagnoses Stable angina I20.8 Preop cardiovascular exam Z01.810 CPT Codes EKG - CPT: 61606-[id number], Complete ([id number])
== END 2024-11-05 09:23 | disposition home or self-care (01) ==
PROVIDERS: PCP Internal Medicine Geriatric Medicine; Visit Provider Internal Medicine Cardiovascular Disease
DX: I20.89 Other forms of angina pectoris (principal); Z01.810 Encounter for preprocedural cardiovascular examination
CPT/HCPCS: 93010; 99214

== ENCOUNTER → 2024-11-05 08:49 | Outpatient (BNVA) | payer MEDICAID, SELFPAY | PROVIDERS: PCP Internal Medicine Geriatric Medicine; Visit Provider Internal Medicine Cardiovascular Disease | DX: Z01.810 Encounter for preprocedural cardiovascular examination (principal); I20.89 Other forms of angina pectoris; I10 Essential (primary) hypertension; F17.210 Nicotine dependence, cigarettes, uncomplicated | CPT/HCPCS: 93005; 99212 ==

== ENCOUNTER 2024-11-27 07:40 | Outpatient (REF) | payer MEDICAID, SELFPAY ==
--- NOTE | ~2024-11-27 | FL_ITS ---
EXAMINATION: XR FLUOROSCOPY UPPER GI WITH AIR CLINICAL INFORMATION: Dysphagia. COMPARISON: None TECHNIQUE: Fluoroscopic air contrast upper GI examination was performed utilizing standard techniques with thin and thick barium and effervescent granules. Numerous spot images were obtained. FINDINGS: Lateral cine images of the oropharynx and hypopharynx demonstrate normal swallow mechanism with normal epiglottic inversion and soft palate elevation. No tracheal penetration, glottic or subglottic aspiration identified. No nasopharyngeal reflux present. Hypopharyngeal structures appear normal without evidence of mass or diverticulum. There was no significant cricopharyngeal achalasia. There is a small anterior bridging osteophyte at C5-C6 that does not appear to be causing any significant posterior indentation of the cervical esophagus. Dual and single contrast images of the esophagus demonstrate normal caliber, contour, and mucosal pattern. No evidence of stricture, mass, or ulcerations identified. Esophageal peristalsis is moderately disorganized. A small type I hiatal hernia is present. No significant gastroesophageal reflux was seen during the course of the examination and on reflux views. Dual contrast and single contrast images of the stomach demonstrated a normal contour. The gastric rugal folds have a thickened appearance, suggestive of gastritis. No masses or ulcerations are seen. Contrast freely passed into the gastric antrum and duodenal bulb without delay. Single and air-contrast images of the duodenal bulb demonstrate no abnormality. The duodenal sweep has a normal appearance, course, and mucosal fold appearance. The imaged proximal jejunum has a normal fold pattern and caliber. FLUOROSCOPY TIME: 4 minutes 35 seconds Number of Spot Images: 7 Number of Cine: 13 DOSE AREA PRODUCT: 3171 uGy-m2 (microgray-meter squared) FL/FL barium swallow with air IMPRESSION: 1. Small anterior bridging osteophyte at C5-C6 that does not appear to be causing any significant posterior indentation of the cervical esophagus. 2. Moderate esophageal dysmotility. 3. Small type I hiatal hernia. 4. Thickened appearance of the gastric rugal folds, suggestive of gastritis. This procedure was performed by Juma Erazo PA-C, and supervised by Dr. Rosen. Electronically signed by: Omar Rosen MD 11/27/2024 04:07 PM [facility]
== END 2024-11-27 07:41 | disposition home or self-care (01) ==
LOC: HO.XRAY 07:40
PROVIDERS: PCP Internal Medicine Geriatric Medicine; Visit Provider Internal Medicine Geriatric Medicine
DX: R13.10 Dysphagia, unspecified (principal)
CPT/HCPCS: 74221

== ENCOUNTER → 2024-11-27 07:42 | Outpatient (BNV) | payer MEDICAID, SELFPAY | PROVIDERS: PCP Internal Medicine Geriatric Medicine; Visit Provider Physician Assistant Surgical | DX: R13.10 Dysphagia, unspecified (principal) | CPT/HCPCS: 74221 ==

== ENCOUNTER 2024-12-02 06:23 | Outpatient (REF) | payer MEDICAID, SELFPAY ==
--- NOTE | ~2024-12-02 | FL_ITS ---
EXAMINATION: FLUOROSCOPY GUIDANCE FOR NEEDLE PLACEMENT CLINICAL INFORMATION: M54.16 - Radiculopathy, lumbar region COMPARISON: None available. TECHNIQUE: Intraoperative fluoroscopy guidance, lumbar region. 2 static images provided. Patient position, prone. FINDINGS: Radiopaque and metallic instruments overlapping the lower region. Physician present. Nondiagnostic purposes.. FLUOROSCOPY TIME: 0.2 minutes. DOSE AREA PRODUCT: 3.39 uGy-m2 (microgray-meter squared) FL/FL guidance in treatment room IMPRESSION: Intraoperative fluoroscopy guidance for a lumbar spine procedure. Electronically signed by: Ciaran Anderson MD 12/11/2024 07:29 AM [facility]
== END 2024-12-02 06:24 | disposition home or self-care (01) ==
LOC: CF 06:23
PROVIDERS: Visit Provider Anesthesiology
DX: M54.16 Radiculopathy, lumbar region (principal); M51.369 Other intervertebral disc degeneration, lumbar region without mention of lumbar back pain or lower extremity pain
CPT/HCPCS: 64483; J2003; J3301; Q9967

== ENCOUNTER 2024-12-02 10:52 | Outpatient (AMB) | payer MEDICAID, SELFPAY ==
--- NOTE | 2024-12-02 10:55 | A.OFFVIS_ITS ---
Vital Signs 12/02/24 11:02 12/02/24 11:48 BP 128/74 134/82 Blood Pressure Location Lt brachial Lt brachial Position Sitting Sitting Pulse 65 67 Pulse Source Pulse Oximeter Pulse Oximeter Pulse Oximetry (%) 99 98 Oxygen Delivery Method Room Air Room Air Comment Pre Procedure Post procedure Intake Visit Reasons: LT L4, L5 TFESI AND LT SYNVISC ONE KNEE INJECTION Allergies naproxen Adverse Reaction (Intermediate, Verified 10/31/24 14:56) kidney problems, hematuria ibuprofen Adverse Reaction (Verified 10/31/24 14:56) hematuria [facility] Medical History (Updated 11/05/24 @ 09:20 by Cornelius Chavez MD) Hemorrhoids Acid reflux Fibromyalgia Herniated lumbar intervertebral disc Herniated cervical disc Hx of osteoarthritis Bilateral carpal tunnel syndrome Hx of renal calculi Hx of migraine headaches Anxiety and depression Sleep apnea Smoker Asthma Myocardial infarction Elevated cholesterol CAD (coronary artery disease) HTN (hypertension) Surgical History Status post excision of lipoma Hx of colonoscopy History of cardiac cath History of esophagogastroduodenoscopy (EGD) Hx of tonsillectomy Hx of umbilical hernia repair H/O lithotripsy History of PTCA Family History Mother Lung cancer Father Prostate cancer Social History Household Members: Significant Other and Family Housing: House Are you a primary home health care respiratory therapist to a significant other at home: No Do you presently have visiting nurse or other home services: No 75 years or older and lives alone: No Alcohol intake: current Alcohol intake frequency: holidays/special occasions only Patient Tobacco Use Status: Current everyday Tobacco user Tobacco use type: Cigarette Cigarette Packs Per Day: 0.5 Cigarettes Per Day: 10 Years Smoked: 40 Current occupational status: employed 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 Informed consent was thoroughly explained to the patient before the procedure.? The patient came to the operating room.? He was positioned prone on operating table with a pillow under his abdomen.? Time-out was performed delineating correct site and side of the procedure, nature of the injection, name and date of of the patient. The lower back of the patient was prepped with ChloraPrep and draped with sterile utility towels.? C-arm was brought over the operating field and sq picture of L4 was demonstrated on the screen.? The left side was chosen as the side of the injection.? Tilting machine ipsilateral to the left at the level of L4 1st the most prominent picture of the right pedicle was obtained on the screen.? 3 mm below the level of the lowest point of the pedicle projection to the skin small amount of lidocaine 1% 3-4 cc was injected to anesthetize the skin.? After that 5 in 22 gauge Quincke point needle was inserted through the skin wheal and was advanced toward the L4-5 foramina on anterior posterior , lateral and oblique views intermittently.? When needle reached appropriate positioned injection of the contrast was performed delineating epidural and perineural spread of the contrast. No intravascular no intra neuro and no intrathecal spread of the contrast was noted. After that injection of the 3 cc of lidocaine 1% mixed with Kenalog 40 mg was performed into the needle. Orders: Orders FL guidance in treatment room Today M54.16 - Radiculopathy, lumbar region Coding Level of Care Code Procedure Only Diagnoses Lumbar radiculopathy M54.16 Lumbar degenerative disc disease M51.36
[2024-12-02 11:02] VITALS: BP 128/74; PULSE 65; O2SAT 99
[2024-12-02 11:48] VITALS: BP 134/82; PULSE 67; O2SAT 98
== END 2024-12-02 12:12 | disposition home or self-care (01) ==
PROVIDERS: PCP Internal Medicine Geriatric Medicine; Visit Provider Anesthesiology
DX: M54.16 Radiculopathy, lumbar region (principal)
CPT/HCPCS: 64483

== ENCOUNTER 2024-12-10 10:02 | Outpatient (AMB) | payer MEDICAID, SELFPAY ==
--- NOTE | 2024-12-10 10:24 | A.OFFVIS_ITS ---
Vital Signs 12/10/24 10:25 Weight 205 lb BP 147/89 H Blood Pressure Location Rt brachial Position Sitting Pulse 69 Pulse Source Pulse Oximeter Pulse Oximetry (%) 98 Oxygen Delivery Method Room Air Intake Visit Reasons: LEFT KNEE SYNVISC ONE INJECTION Animal Caretaker Required: No Driller Hand: Driller Hand Present (Michelle Rollins) Allergies naproxen Adverse Reaction (Intermediate, Verified 12/10/24 10:24) kidney problems, hematuria ibuprofen Adverse Reaction (Verified 12/10/24 10:24) hematuria Medication List - Last Reconciled 12/10/24 by Michelle Rollins, PSYCHOLOGIST EXPERIMENTAL albuterol sulfate 90 mcg/actuation 2 puffs inhalation Q4-6H PRN amlodipine 2.5 mg PO DAILY aspirin 81 mg PO DAILY atorvastatin 80 mg PO DAILY baclofen 10 mg PO BID clopidogrel 75 mg PO DAILY docusate sodium 100 mg PO QAM ergocalciferol (vitamin D2) (Vitamin D2) 1,250 mcg PO QWEEK ezetimibe 10 mg PO QAM fluticasone furoate-vilanterol 200-25 mcg/dose (Breo Ellipta) 1 inh inhalation DAILY fluticasone propionate 50 mcg/actuation 2 sprays intranasal DAILY hydrocortisone 2.5% (Proctozone-HC) 1 appl MO BID PRN ipratropium bromide 2 sprays intranasal BID isosorbide mononitrate ER 60 mg PO DAILY metoprolol tartrate 100 mg PO BID 90 days multivitamin with folic acid 400 mcg (Daily-Maddi (with folic acid)) 1 tab PO QAM naloxone 4 mg/actuation 0 sprays intranasal nitroglycerin 0.4 mg sublingual Q5M PRN oxycodone-acetaminophen 5-325 mg (Percocet) 1 tab PO Q6H PRN pantoprazole 20 mg PO DAILY simethicone (Gas Relief (simethicone)) 125 mg PO TID-QID PRN tamsulosin 0.4 mg PO BEDTIME umeclidinium 62.5 mcg/actuation (Incruse Ellipta) 1 inh inhalation DAILY PFSH Medical History (Updated 11/05/24 @ 09:20 by Cornelius Chavez MD) Hemorrhoids Acid reflux Fibromyalgia Herniated lumbar intervertebral disc Herniated cervical disc Hx of osteoarthritis Bilateral carpal tunnel syndrome Hx of renal calculi Hx of migraine headaches Anxiety and depression Sleep apnea Smoker Asthma Myocardial infarction Elevated cholesterol CAD (coronary artery disease) HTN (hypertension) Surgical History Status post excision of lipoma Hx of colonoscopy History of cardiac cath History of esophagogastroduodenoscopy (EGD) Hx of tonsillectomy Hx of umbilical hernia repair H/O lithotripsy History of PTCA Family History Mother Lung cancer Father Prostate cancer Social History Household Members: Significant Other and Family Housing: House Are you a primary child care center assistant director to a significant other at home: No Do you presently have visiting nurse or other home services: No 75 years or older and lives alone: No Alcohol intake: current Alcohol intake frequency: holidays/special occasions only Patient Tobacco Use Status: Current everyday Tobacco user Tobacco use type: Cigarette Cigarette Packs Per Day: 0.5 Cigarettes Per Day: 10 Years Smoked: 40 Current occupational status: employed 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 [employer] ) Physical Exam Vital Signs: Last Vital Signs Pulse 69 12/10/24 10:25 BP 147/89 H 12/10/24 10:25 Pulse Ox 98 12/10/24 10:25 Oxygen Delivery Method Room Air 12/10/24 10:25 Office Procedures AMB Joint Injection/Aspiration Joint Injection/Aspiration Primary Site: left knee Prep: site was prepped using aseptic technique Approach Used: anterolateral Procedure: The patient tolerated the procedure well Coding 07281 - Large joint Procedure code (CPT) selection complete Office Meds Synvisc-One 48 mg/6 mL intra-articular syringe Performing Provider: Jelani Siegel MD [place] [facility] Administered by: Jelani Siegel MD on 12/10/24 10:26 Dose Route Admin Location Dispensed Lot Number Expiration Date NDC Materials Development Engineer 48 mg intra-articular 6 mL [id number] 04/25/27 [address]-8 [facility] ANURAG - Assessment & Plan Assessment & Plan (1) Osteoarthritis of left knee: Code(s): M17.12 - Unilateral primary osteoarthritis, left knee Category: Medical (2) Left knee pain: Code(s): M25.562 - Pain in left knee Category: Medical Plan SYNVISC SOLUTION INJECTION LEFT KNEE. AFTER OBTAINING INFORMED CONSENT WERE RISKS AND BENEFITS WERE CLEARLY EXPLAINED TO THE PATIENT HE WAS POSITIONED SITTING ON THE OPERATING TABLE WITH LEFT KNEE FREELY FLEXED AND FOOT NOT TOUCHING THE GROUND. ANTERIOR LATERAL SURFACE OF THE LEFT KNEE WAS PREPPED WITH CHLORAPREP. 18 GAUGE 1/2 INCH NEEDLE WAS USED TO PENETRATE THE SKIN AND ADVANCED TO WERE THE RETRO PATELLAR SPACE FROM ANTERIOR LATERAL INTO THE POSTERIOR MEDIAL DIRECTION. WHEN NEEDLE REACH THE RETROPATELLAR SPACE INJECTION OF THE SYNVISC WAS PERFORMED. UPON COMPLETION OF THE INJECTION NEEDLE WAS REMOVED AND STERILE BAND-AID WAS APPLIED. THE PATIENT TOLERATED THE PROCEDURE WELL. Orders: Orders AMB Joint Injection/Aspiration Today M17.12 - Unilateral primary osteoarthritis, left knee, M25.562 - Pain in left knee Medications: New Synvisc-One (hylan g-f 20) 48 mg (6 mL) intra-articular ONCE 6 mL 0RF NS M17.12 - Unilateral primary osteoarthritis, left knee, M25.562 - Pain in left knee Coding Level of Care Code Procedure Only Diagnoses Osteoarthritis of left knee M17.12 Left knee pain M25.562 CPT Codes Coding - 47020 Large joint: 14195 - Large joint ([id number])
[2024-12-10 10:25] VITALS: BP 147/89; PULSE 69; O2SAT 98
== END 2024-12-10 10:24 | disposition home or self-care (01) ==
PROVIDERS: PCP Internal Medicine Geriatric Medicine; Visit Provider Anesthesiology
DX: M17.12 Unilateral primary osteoarthritis, left knee (principal); M25.562 Pain in left knee
CPT/HCPCS: 20610

== ENCOUNTER → 2024-12-10 10:02 | Outpatient (BNVA) | payer MEDICAID, SELFPAY | PROVIDERS: PCP Internal Medicine Geriatric Medicine; Visit Provider Anesthesiology | DX: M17.12 Unilateral primary osteoarthritis, left knee (principal) | CPT/HCPCS: 20610; J7325 ==

== ENCOUNTER 2024-12-23 10:59 | Outpatient (AMB) | payer MEDICAID, SELFPAY ==
--- NOTE | 2024-12-23 11:02 | A.OFFVIS_ITS ---
Vital Signs 12/23/24 11:06 Height 5 ft 3 in Weight 205 lb BMI 36.3 BP 155/83 H Blood Pressure Location Lt brachial Position Sitting Pulse 67 Pulse Source Pulse Oximeter Intake Visit Reasons: LT L4, L5 TFESI Intake Note: Pain today 5/10 Engineer Technician Required: No Accompanied by: Self / Same As Patient Allergies naproxen Adverse Reaction (Intermediate, Verified 12/23/24 11:07) kidney problems, hematuria ibuprofen Adverse Reaction (Verified 12/23/24 11:07) hematuria HPI Comments Details: Patient presents today to assess response to Left L4-L5 TFESI on 12/02/24 and Left knee Synvisc injection on 12/10/[address] Siegel. Patient reports 80% ongoing pain relief since the procedure for left sided radicular low back pain and 40% for left knee pain relief only in the lateral joint line. He continues to endorse significant left medial knee pain with walking, bending, kneeling, or climbing stairs which affect his daily activities and functioning, mobility or sleep. Rates pain at 5/10. 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 He reports Percocet prescribed by PCP has been helpful for his back and knee pain. He continues to endorse moderate axial low back pain, which is worse on the right side. Denies any recent cough, cold, infection, fever, knee swelling or effusion, bladder or bowel dysfunction, saddle anesthesia or any significant changes in medical history since last office visit. He is scheduled for right carpal tunnel release on 01/01/25. Past Procedures: 12/10/24: Left knee Synvisc injection-40% pain relief 12/02/24: Left L4-L5 TFESI-80% ongoing pain relief 09/23/24: Bilateral Diagnostic L3-L4 DR L5 MBB-20% pain relief 02/12/24: Left L3-L4 TFESI-50-60% pain relief PRIOR: Patient is a pleasant 58 years old male with history of chronic low back pain with left sided radiculopathy, herniated cervical and lumbar discs, CAD with multiple cardiac stents (on Plavix) presents today for initial evaluation of neck, low back and left knee pain. Denies any recent or past trauma, injury or falls. 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 Reports neck pain due to large lump in his posterior neck for many years and has been affecting his cervical spine range of motion, causing him significant pain and stiffness especially with right lateral rotation and bending. Patient is interesting in surgical consultation for this. His back pain is axial and also radiates into his left thigh and lateral hip with associated numbness, tingling, left thigh and left knee pain, and thigh weakness. He denies any pain radiating down past left knee into his ankle or foot. Patient also presents with localized tenderness in the projection of left sacroiliac joint area and positive provocative testing. He reports left knee pain with crepitating on flexion, climbing stairs or pivoting. Patient denies previous spine surgery but has undergone several back injections for his back and left leg pain in [address] [facility] and completed physical therapy 2 years ago in [place], [place] without any improvement in his symptoms or functioning. Pain affects his daily activities, functioning, sleep, social interactions, work on quality of life. Denies any fever, abdominal pain, weight loss, foot drop, bladder or bowel dysfunction, or saddle anesthesia. Location Lower back radiates to right hip and anterior thigh; posterior neck pain Duration Chronic pain for> 25 years Characteristics of symptom or complaint Aching, radiating, stabbing, pinching, shooting, tingling Aggravating or associated factors Walking, lifting, bending, twisting, climbing stairs, pulling Relieving factors Rest, sitting, heat, Tylenol, Percocet Treatment PT, injection at [facility] in 2010 -no relief PFSH Medical History Hemorrhoids Acid reflux Fibromyalgia Herniated lumbar intervertebral disc Herniated cervical disc Hx of osteoarthritis Bilateral carpal tunnel syndrome Hx of renal calculi Hx of migraine headaches Anxiety and depression Sleep apnea Smoker Asthma Myocardial infarction Elevated cholesterol CAD (coronary artery disease) HTN (hypertension) Surgical History Status post excision of lipoma Hx of colonoscopy History of cardiac cath History of esophagogastroduodenoscopy (EGD) Hx of tonsillectomy Hx of umbilical hernia repair H/O lithotripsy History of PTCA Family History Mother Lung cancer Father Prostate cancer Social History Household Members: Significant Other and Family Housing: House Are you a primary assurance services manager health care to a significant other at home: No Do you presently have visiting nurse or other home services: No 75 years or older and lives alone: No Alcohol intake: current Alcohol intake frequency: holidays/special occasions only Patient Tobacco Use Status: Current everyday Tobacco user Tobacco use type: Cigarette Cigarette Packs Per Day: 0.5 Cigarettes Per Day: 10 Years Smoked: 40 Current occupational status: employed 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 Alert and oriented. Mood and affect appropriate. Follows and participates in conversation appropriately. Respiratory effort is unlabored. No cough. Able to transition from sit to stand unassisted. Ambulates with bilaterally normal heel strike and toe off, reports intermittent LLE weakness due to pain. Neck Neck: Yes full ROM, Yes no lymphadenopathy, Yes supple, No anterior neck swelling and Yes no JVD General: Yes no CVA tenderness Back/Spine/Pelvis Other: Limited lumbar ROM. Lumbar extension reproduces moderate pain, flexion reproduces mild pain. 5/5 right and 4/5 left strength of quadriceps bilaterally as well as flexion/dorsiflexion of bilateral feet against resistance. 2+ pedal pulses bilaterally. Facet loading test positive bilaterally. Kirsten sign, Clyde?s, Pelvic compression and Stinchfield tests are positive left. No groin pain with I/E hip rotations. Back: no CVA tenderness Cervical Spine: cervical ROM normal, cervical muscular tenderness, Cervical spine scars present (posterior) and No Cervical spine tenderness Thoracic/Lumbar Spine: thoracic and lumbar spine normal to inspection, No Thoracic/lumbar spine scar(s), Lasegue's sign positive on the left and diffuse, pain with thoraco-lumbar ROM, paraspinal muscle tenderness on the left greater than right, thoraco-lumbar ROM limited, No thoracic spinal tenderness, lumbar spinal tenderness at L3, at L4 and at L5 and straight leg raise positive left at 50 degrees Sacroiliac joints: bilaterally (left>right) tender to palpation Extrem General: Yes capillary refill normal, Yes no clubbing, cyanosis or edema and Yes no calf tenderness Left lower extremity: knee (Limited ROM due to pain) Details: normal to inspection, tenderness Location: of the medial joint line and crepitus; no swelling, no ecchymosis and no unusual warmth Results Reviewed Results Reviewed: MR LUMBAR SPINE WITHOUT CONTRAST 05/25/23 CLINICAL INFORMATION: Low back pain. FINDINGS: VERTEBRAL BODIES AND PARASPINAL STRUCTURES: The marrow signal is within normal limits. There is gnshkppb-fq-asggog disc space narrowing with anterior endplate spurring partially visualized on sagittal imaging at the T10-T11 and T11-T12 levels. Left posterolateral disc bulge with facet arthropathy at the T10-T11 level results in significant left foraminal encroachment, only partially visualized. There are no compression fractures or subluxations. The paraspinal soft tissues appear normal. There are mild degenerative changes of the sacroiliac joints bilaterally. CONUS MEDULLARIS AND CAUDA EQUINE: The distal cord, conus tip, and cauda equina nerve roots appear normal. SPINAL LEVELS: L1-L2: Mild posterior disc bulge and mild facet arthropathy. Bulging disc mildly impresses upon the ventral thecal sac. No central canal stenosis or foraminal narrowing. L2-L3: Left posterolateral disc protrusion visible with mild impression upon the exiting left L2 nerve root. No central canal stenosis. L3-L4: Broad-based disc bulge without central canal stenosis. Bulging disc posterolaterally on both sides impresses upon the exiting L3 nerve roots. Moderate right and [id number]-ak-dybcbttd left foraminal narrowing. L4-L5: Generalized disc bulge and mild facet arthropathy without central canal stenosis. Bulging disc contributes to moderate bilateral foraminal encroachment and mild impression upon the exiting L4 nerve roots. L5-S1: Mild disc bulge with a posterior annular fissure which mildly impresses upon the right S1 nerve root. Mild facet arthropathy. No central canal stenosis or foraminal narrowing. IMPRESSION: 1. Left posterolateral disc protrusion at the L2-L3 level with mild impression upon the left L2 nerve root. 2. Broad-based disc bulge at the L3-L4 level with bulging disc impressing upon both exiting L3 nerve roots. Moderate right foraminal narrowing. 3. Disc bulge at the L4-L5 level with moderate bilateral foraminal encroachment and mild impression upon the exiting L4 nerve roots. 4. Posterior annular fissure at the L5-S1 level mildly impressing upon the right S1 nerve root. 5. Moderate degenerative disc disease at the T10-T11 and T11-T12 levels with significant left foraminal encroachment at the T10-T11 level. XR CERVICAL SPINE 04/25/23 CLINICAL INFORMATION: Neck pain and radiculopathy. FINDINGS: Bone alignment is normal. No fracture or dislocation. Degenerative spondylosis from C3-C4 to C6-C7. Normal disc spaces. Right-sided neuroforaminal narrowing from bony osteophyte from C4-C5 to C6-C7. Left-sided neuroforaminal narrowing from bony osteophyte from C3-C4 to C5 6. Prevertebral soft tissues are normal. IMPRESSION: Multilevel degenerative changes. Assessment & Plan Assessment & Plan (1) Left knee pain: Code(s): M25.562 - Pain in left knee Category: Medical (2) Lumbar spondylosis: Code(s): M47.816 - Spondylosis without myelopathy or radiculopathy, lumbar region Category: Medical (3) Lumbar radiculopathy: Code(s): M54.16 - Radiculopathy, lumbar region Category: Medical (4) Lumbar degenerative disc disease: Code(s): M51.36 - Other intervertebral disc degeneration, lumbar region Category: Medical (5) Osteoarthritis of left knee: Code(s): M17.12 - Unilateral primary osteoarthritis, left knee Category: Medical (6) Bilateral carpal tunnel syndrome: Code(s): G56.03 - Carpal tunnel syndrome, bilateral upper limbs Category: Medical Plan Patient 3 weeks s/p Left L4-L5 TFESI with good results. He also underwent left knee Synvisc injection with mild pain relief and continues to endorse significant medial left knee pain. We will proceed with left knee MRI to further evaluate this. Work note provided per patient's request. Patient also requested wrist braces for CTS in both hands, he is scheduled to undergo right CTR next month. All questions were answered and the patient is in agreement of plan. Follow-up after injections and sooner as needed. Orders: Orders MR knee LT wo con Today M17.12 - Unilateral primary osteoarthritis, left knee, M25.562 - Pain in left knee Medications: New arm brace As directed 2 ea 0RF pain G56.03 - Carpal tunnel syndrome, bilateral upper limbs Coding Level of Care Code Est Pt Level 4 (43024) Complex EM visit Add On G2211 Diagnoses Left knee pain M25.562 Lumbar spondylosis M47.816 Lumbar radiculopathy M54.16 Lumbar degenerative disc disease M51.36 Osteoarthritis of left knee M17.12 Bilateral carpal tunnel syndrome G56.03
[2024-12-23 11:06] VITALS: BP 155/83; PULSE 67; BMI 36.3
--- OUTSIDE RECORDS SUMMARY | 2024-12-23 12:12 | XMS_ITS | Encounter Summary ---
Author Organization [facility] Address [address] [place] [address] [address] [place] [address] Care Team Providers Care Back End Developer Name Role Phone Name, Rafiq JENKINS Primary Care Provider [phone] Encounter Details Date Type Department Care Team (Late Contact Info) Description 04/27/2023 Abstract [facility] [address] [place] [address] [phone] Name, MD Rafiq [address] [place] [address] [phone] Social History Tobacco Use Types Packs/Day Years Used Date Smoking Tobacco: Every Day Cigarettes 0.5 41 Passive Smoke Exposure: Current Smokeless Tobacco: Never Alcohol Use Standard Drinks/Week Comments Yes 3 (1 standard drink = 0.6 oz pur e alcohol) PHQ-2 Answer Date Recorded Patient Health Questionnaire-2 Score 0 01/24/2023 Depression Answer Date Recorded Patient Health Questionnaire-2 Score 0 01/24/2023 Sex and Gender Information Value Date Recorded Sex Assigned at Male 09/25/2022 10:24 AM EDT Legal Sex Male 10:24 AM EDT Gender Identity Male 09/25/2022 10:24 AM EDT Sexual Orientation Straight 09/25/2022 10 :24 AM EDT COVID-19 Exposure Response Date Recorded In the last 10 days, have yo u been in contact with someone who was confirmed or suspected to have Coronavirus/COVID-19? No / Unsure 04/11/2023 1:35 PM EDT documented as of this encounter Plan of Treatment Upcoming Encounters Date Type Department Care Team (Late Contact Info) Description 02/11/2025 11:30 AM EDT Clinical Support [facility] [address] [place] [phone] Krysta Huston RN 03/13/2025 10:30 AM EDT Office Visit [facility] [address] [place] [address] Name, MD Rafiq [address] [place] [phone] documented as of this encounter Procedures Procedure Name Priority Date/Time Associated Diagnosis Comments COLONOSCOPY Routine 12/24/2020 12:59 PM EST documented in this encounter Results * Hm Colonoscopy (12/24/2020 12:59 PM EST) Colonoscopy Normal Normal Narrative Danielle Orellana - 12/24/2020 12:59 PM EST Recommended 5 year follow up Historical Provider HEALTH MAINTENANCE Final Result documented in this encounter Visit Diagnoses Not on filedocumented in this encounter Care Teams Back End Developer Relationship Specialty Start Date End Date Name, MD Rafiq [address] [place] [phone] PCP - General Family Medicine 12/16/15 documented as of this encounter
--- OUTSIDE RECORDS SUMMARY | 2024-12-23 12:12 | XMS_ITS | Encounter Summary ---
Author Organization [employer] Address [address] [place] [address] Care Team Providers Care Crown Ironer Operator Name Role Phone Name, Rafiq JENKINS Primary Care Provider [phone] Reason for Visit * Reason Onset Date Comments Recommend SPORT INTERN Tier 2 12/17/2024 Encounter Details Date Type Department Care Team ([facility] st Contact Info) Description 12/17/2024 Telephone [facility] [address] [place], [place] [phone] Krysta Huston, LUCAS Recommend SPORT INTERN Tier 2 Social History Tobacco Use Types Packs/Day Years Used Date Smoking Tobacco: Every Day Cigarettes 0.5 41 Passive Smoke Exposure: Current Smokeless Tobacco: Never Alcohol Use Standard Drinks/Week Comments Yes 3 (1 standard drink = 0.6 oz pur e alcohol) social Depression Answer Date Recorded Patient Health Questionnaire-9 Score 0 02/05/2024 Patient Health Questionnaire-9 Score 0 02/05/2024 Last PHQ-9: Questionnaire Data Not on file 0 02/05/2024 Housing Stability Answer Date Recorded What is your housing situation today? I have lucrecia caban 02/05/[address] you li ve. Do you have problems with any of the following? None of the above 02/05/2024 Food Insecurity Answer Date Recorded Within the past 12 months, y ou worried that your food would run out before you got money to buy more: Never True 02/05/2024 Within the past 12 months,th e food you bought just didn't last and you didn't have enough money to get more: Never True 10/2024 Transportation Answer Date Recorded In the past 12 months, has l ack of transportation kept you from medical appts, meetings, work or from getting things needed for daily living? No 02/05/2024 Utilities Answer Date Recorded In the past 12 months, has t he electric, gas, oil or water company threatened to shut off services in your home? No 02/05/2024 Depression Answer Date Recorded Patient Health Questionnaire-2 Score 0 02/05/2024 Sex and Gender Information Value Date Recorded Sex Assigned at Male 09/25/2022 10:24 AM EDT Legal Sex Male 10:24 AM EDT Gender Identity Male 09/25/2022 10:24 AM EDT Sexual Orientation Straight 09/25/2022 10 :24 AM EDT documented as of this encounter Miscellaneous Notes * Telephone Encounter - Krysta Huston RN - 12/17/2024 7:36 AM EST What SPORT INTERN Tier would you like this patient to be? I recommend Tier 2, please let me know if you agree or would rather patient be in another SPORT INTERN Tier. Tier 1 = HIGH RISK, Monthly SPORT INTERN visits Tier 2 = MODerate RISK, Q3 Month visits Tier 3 = LOW RISK = Q4-6 month visits documented in this encounter Plan of Treatment Upcoming Encounters Date Type Department Care Team (Late st Contact Info) Description 02/11/2025 11:30 AM EDT Clinical Support [facility] [address] [place] [id number] Krysta Huston RN 03/13/2025 10:30 AM EDT Office Visit [facility] [address] [place] [phone] NameRafiq MD [address] [place] [phone] documented as of this encounter Visit Diagnoses Not on filedocumented in this encounter Additional Health Concerns Assessment Noted Time PHQ-9 Depression Total Score: 0 02/05/20 24 2:30 PM EDT documented as of this encounter Care Teams Crown Ironer Operator Relationship Specialty Start Date End Date Rafiq Grace MD [address] [place] [id number] PCP - General Family Medicine 12/16/15 documented as of this encounter
--- OUTSIDE RECORDS SUMMARY | 2024-12-23 12:12 | XMS_ITS | Encounter Summary ---
Author Organization [employer] Address 75 [facility] 7t [place] [address] Care Team Providers Care Ironer Sock Name Role Phone Name, Rafiq JENKINS Primary Care Provider [phone] Encounter Details Date Type Department Care Team (Latest Contact Info) Description 12/17/2024 Travel Social History Tobacco Use Types Packs/Day Years [...] AM EDT documented as of this encounter Plan of Treatment Upcoming Encounters Date Type Department Care Team (Late st Contact Info) Description 02/11/2025 11:30 AM EDT Clinical Support [facility] [address] [place] [address] Krysta Huston RN 03/13/2025 10:30 AM EDT Office Visit [facility] [address] [place] [address] Name, MD Rafiq [address] [place] [address] documented as of this encounter Visit Diagnoses Not on filedocumented in this encounter Additional Health Concerns Assessment Noted Time PHQ-9 Depression Total Score: 0 02/05/20 24 2:30 PM EDT documented as of this encounter Care Teams Ironer Sock Relationship Specialty Start Date End Date Name, MD Rafiq [address] [place] [address] PCP - General Family Medicine 12/16/15 documented as of this encounter
--- OUTSIDE RECORDS SUMMARY | 2024-12-23 12:12 | XMS_ITS | Encounter Summary ---
Author Organization [employer] Address 75 [facility] 7t [place] [address] Care Team Providers Care Char Belt Operator Name Role Phone Name, Rafiq JENKINS Primary Care Provider [phone] Reason for Visit * Reason Onset Date Comments CALLBACK REQUESTED 11/18/2024 Encounter Details Date Type Department Care Team ([facility] st Contact Info) Description 11/18/2024 Telephone [facility] [address] [place], [place] [phone] Name, MD Rafiq [address] [place] [address] CALLBACK REQUESTED Social History Tobacco Use Types Packs/Day Years [...] encounter Miscellaneous Notes * Telephone Encounter - Elizabeth Edge RN - 11/28/2024 4:09 PM EST Incoming call from pt and informed them we have brielle trying to contact them in regards to schedule an appt to educate them on how to administer their Praulent injection.mPt informed to pick up worker their medication form the pharmacy and to keep it in the fridge until the day of the appt. Pt advised to take the medication out for at least 30 minutes prior to the self injection. Pt verbalized understanding and scheduled for nurse visit on 12/04/24. * Telephone Encounter - Solitario Elaine - 11/28/2024 3:51 PM EST Tc from pt requesting a callback pt was advised to pick up worker medication in pharmacy, pt verbalize he will go pick it up and will scheduled his appointment so they could teach him how to administer medication. * Telephone Encounter - Elizabeth Edge RN - 11/27/2024 9:36 AM EST Tc to pt via [facility] service rig operator id: [id number] to advise them to pick up worker their Praluent medication at [facility] and schedule a nurse visit to educate them on how to administer the medication to themselves. Pt answered at the first ring, when inter began to introduce themselves, pt disconnected the call. Punch Box Tender called again, pt answered but diud not say anything then call was disconnected again. * Telephone Encounter - Elizabeth Edge RN - 11/20/2024 1:06 PM EST Tc to [facility] regarding if pt picked up their Praluent medication. They report pt did not and informed them that PA was approved and scanned under media. Tc to pt to schedule nurse visit to teach pt how to administer the Praluent medication to themself and inform them medications ready for pick up worker. Someone answered the phone and when service rig operator to speak no one replied then call was disconnected. Will call again on Sunday and message re tasked to blue team nurse box. * Telephone Encounter - Solitario Elaine - 11/18/2024 11:15 AM EST Tc from pt stating someone called him but he doesn't have the name and the nurse who called him NEVER PLACED A MESSAGE. Pt requests a callback. [phone] documented in this encounter Plan of Treatment Upcoming Encounters Date Type Department Care Team (Late st Contact Info) Description 02/11/2025 11:30 AM EDT Clinical Support [facility] [address] [place] [phone] Krysta Huston RN 03/13/2025 10:30 AM EDT Office Visit [facility] [address] [place] [address] Name, MD Rafiq [address] [place] [address] documented as of this encounter Visit Diagnoses Not on filedocumented in this encounter Additional Health Concerns Assessment Noted Time PHQ-9 Depression Total Score: 0 02/05/20 24 2:30 PM EDT documented as of this encounter Care Teams Char Belt Operator Relationship Specialty Start Date End Date Name, MD Rafiq [address] [place] [address] PCP - General Family Medicine 12/16/15 documented as of this encounter
--- OUTSIDE RECORDS SUMMARY | 2024-12-23 12:13 | XMS_ITS | Encounter Summary ---
Author Organization [employer] Address 75 [facility] 7t [place] [address] Care Team Providers Care Pathology Secretary Name Role Phone Name, Rafiq JENKINS Primary Care Provider [phone] Reason for Visit * Reason Onset Date Comments No Show 12/04/2024 Encounter Details Date Type Department Care Team ([facility] Contact Info) Description 12/04/2024 Telephone [facility] 230 [place], [place] [phone] Name, MD Rafiq 230 [place] [address] No Show Social History Tobacco Use Types Packs/Day Years [...] encounter Miscellaneous Notes * Telephone Encounter - Sharri Kimble - 12/04/2024 3:50 PM EST Patient no show to nurse visit on 12/04/24. documented in this encounter Plan of Treatment Upcoming Encounters Date Type Department Care Team (Late st Contact Info) Description 02/11/2025 11:30 AM EDT Clinical Support [facility] [address] [place] [phone] Krysta Huston RN 03/13/2025 10:30 AM EDT Office Visit [facility] [address] [place] [address] Name, MD Rafiq [address] [place] [address] documented as of this encounter Visit Diagnoses Not on filedocumented in this encounter Additional Health Concerns Assessment Noted Time PHQ-9 Depression Total Score: 0 02/05/20 24 2:30 PM EDT documented as of this encounter Care Teams Pathology Secretary Relationship Specialty Start Date End Date NameRafiq MD [address] [place] [address] PCP - General Family Medicine 12/16/15 documented as of this encounter
--- OUTSIDE RECORDS SUMMARY | 2024-12-23 12:13 | XMS_ITS | Encounter Summary ---
Author Organization [employer] Address 75 [facility] 7t [place] [address] Care Team Providers Care Renewals Specialist Name Role Phone Name, Rafiq JENKINS Primary Care Provider [phone] Reason for Visit * Reason Onset Date Comments Med Refill 06/12/2024 Encounter Details Date Type Department Care Team ([facility] st Contact Info) Description 06/12/2024 Telephone [facility] 230 [place], [place] [phone] Name, MD Rafiq 230 [place] [address] Med Refill Social History Tobacco Use Types Packs/Day Years [...] encounter Miscellaneous Notes * Telephone Encounter - Christiano Ambriz RN - 06/12/2024 1:23 PM EDT [place] pat checked and meds. [facility] for approval. * Telephone Encounter - Rah Ferrer - 06/12/2024 9:30 AM EDT TC from pt requesting medication refill. Medications needing refill : oxyCODONE-acetaminophen (Percocet) 5-325 MG tablet To be sent to: [facility]/PHARMACY #[id number] AT [facility] documented in this encounter Plan of Treatment Upcoming Encounters Date Type Department Care Team (Late st Contact Info) Description 02/11/2025 11:30 AM EDT Clinical Support [facility] [address] [place] [address] Krysta Huston RN 03/13/2025 10:30 AM EDT Office Visit [facility] [address] [place] [address] Name, MD Rafiq [address] [place] [address] documented as of this encounter Visit Diagnoses Not on filedocumented in this encounter Additional Health Concerns Assessment Noted Time PHQ-9 Depression Total Score: 0 02/05/20 24 2:30 PM EDT documented as of this encounter Care Teams Renewals Specialist Relationship Specialty Start Date End Date Name, MD Rafiq 230 [place] [address] PCP - General Family Medicine 12/16/15 documented as of this encounter
--- OUTSIDE RECORDS SUMMARY | 2024-12-23 12:13 | XMS_ITS | Encounter Summary ---
Author Organization [employer] Address [address] [facility] [address] 7t [place] [address] Care Team Providers Care Tank Car Mechanic Name Role Phone Name, Rafiq JENKINS Primary Care Provider [phone] Encounter Details Date Type Department Care Team ([facility] st Contact Info) Description 01/15/2024 Telephone [facility] MEDICINE 230 [place], [place] [phone] Name, MD Rafiq 230 [place] [address] Social History Tobacco Use Types Packs/Day Years Used Date Smoking Tobacco: Every Day Cigarettes 0.5 41 Passive Smoke Exposure: Current Smokeless Tobacco: Never Alcohol Use Standard Drinks/Week Comments Yes 3 (1 standard drink = 0.6 oz pur e alcohol) social PHQ-2 Answer Date Recorded Patient Health Questionnaire-2 Score 0 01/24/2023 Housing Stability Answer Date Recorded What is your housing situation today? I have lucrecia caban 09/20/[address] you li ve. Do you have problems with any of the following? None of the above 09/20/2023 Food Insecurity Answer Date Recorded Within the past 12 months, y ou worried that your food would run out before you got money to buy more: Never True 09/20/2023 Within the past 12 months,th e food you bought just didn't last and you didn't have enough money to get more: Never True Transportation Answer Date Recorded In the past 12 months, has l ack of transportation kept you from medical appts, meetings, work or from getting things needed for daily living? No 09/20/2023 Utilities Answer Date Recorded In the past 12 months, has t he electric, gas, oil or water [employer] threatened to shut off services in your home? No 09/20/2023 Depression Answer Date Recorded Patient Health Questionnaire-2 Score 0 01/24/2023 Sex and Gender Information Value Date Recorded Sex Assigned at Male 09/25/2022 10:24 AM EDT Legal Sex Male 10:24 AM EDT Gender Identity Male 09/25/2022 10:24 AM EDT Sexual Orientation Straight 09/25/2022 10 :24 AM EDT documented as of this encounter Miscellaneous Notes * Telephone Encounter - Qing Alcaraz RN - 01/16/2024 11:46 AM EST [facility] surgical notes re: excision of lipoma on posterior neck sent to medical records. * Telephone Encounter - Rah Ferrer - 01/15/2024 10:28 AM EST Tc from patient calling to inform the PCP the patient had a procedure done on the neck on 01/15 at [facility] for skin lumps and was done by was the doctor who preformed the procedure documented in this encounter Plan of Treatment Upcoming Encounters Date Type Department Care Team (Late st Contact Info) Description 02/11/2025 11:30 AM EDT Clinical Support [address] [address] Krysta Huston RN 03/13/2025 10:30 AM EDT Office Visit [facility] MEDICINE [address] [place] [address] Name, MD Rafiq [address] [place] [address] documented as of this encounter Visit Diagnoses Not on filedocumented in this encounter Care Teams Tank Car Mechanic Relationship Specialty Start Date End Date Name, MD Rafiq [address] [place] [address] PCP - General Family Medicine 12/16/15 documented as of this encounter
--- OUTSIDE RECORDS SUMMARY | 2024-12-23 12:13 | XMS_ITS | Encounter Summary ---
Author Organization [employer] [facility] Address [address] [place] [address] 7 [place] [address] Care Team Providers Care Exterior Door Installer Name Role Phone Name, Rafiq JENKINS Primary Care Provider [phone] Reason for Visit * Reason Comments Med Refill Encounter Details Date Type Department Care Team (Late st Contact Info) Description 08/03/2023 Refill [facility] [address] [place] [address] [phone] Name, MD Rafiq [address] [place] [address] Social History Tobacco Use Types Packs/Day Years [...] Description 02/11/2025 11:30 AM EDT Clinical Support [address] [phone] Krysta Huston RN 03/13/2025 10:30 AM EDT Office Visit [address] [address] Name, MD Rafiq [address] [place] [address] documented as of this encounter Visit Diagnoses Not on filedocumented in this encounter Care Teams Exterior Door Installer Relationship Specialty Start Date End Date Name, MD Rafiq [address] [place] [address] PCP - General Family Medicine 12/16/15 documented as of this encounter
--- OUTSIDE RECORDS SUMMARY | 2024-12-23 12:13 | XMS_ITS | Encounter Summary ---
Author Organization [facility] Address [address] [place] [address] 7t [place] [address] Care Team Providers Care Manufacturing Support Engineer Name Role Phone Name, Rafiq JENKINS Primary Care Provider [phone] Reason for Visit * Reason Comments Med Refill Encounter Details Date Type Department Care Team (Late Contact Info) Description 06/03/2023 Refill [facility] MEDICINE 230 [place], [place] [phone] Sabine Boyd MD 230 [place], [place] [phone] Tobacco use disorder, continuous Social History Tobacco Use Types Packs/Day Years [...] suspected to have Coronavirus/COVID-19? No / Unsure 05/23/2023 11:08 AM EDT documented as of this encounter Plan of Treatment Upcoming Encounters Date Type Department Care Team (Late Contact Info) Description 02/11/2025 11:30 AM EDT Clinical Support [address] [address] Krysta Huston, LUCAS 03/13/2025 10:30 AM EDT Office Visit [address] [address] Name, MD Rafiq [address] [place] [address] documented as of this encounter Visit Diagnoses Diagnosis Tobacco use disorder, continuous Tobacco use disorder documented in this encounter Care Teams Manufacturing Support Engineer Relationship Specialty Start Date End Date Name, MD Rafiq [address] [place] [address] PCP - General Family Medicine 12/16/15 documented as of this encounter
--- OUTSIDE RECORDS SUMMARY | 2024-12-23 12:13 | XMS_ITS | Encounter Summary ---
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 Prescribed Percocet 5mg Q6hr PRN. States he has been taking as prescribed, last dose taken this morning. Smokes about 1 pack of cigarettes every 2 days, still trying to quit. Denies Illicit drug use and marijuana use. States he will drink 2-3 beers socially on holidays. Currently rates his pain a 7 and states medication is 100% effective at alleviating his pain. Current pain sites are his back, neck, right shoulder, left knee and both wrists/carpal tunnel. He said heis scheduled for his r ight carpal tunnel repair surgery 01/01/25. He had a left knee cortisone injection recently and it only helped a small amount. O: SCT Tier 2. Pt currently prescribed Percocet 5mg Q6hr PRN. SR VICE PRESIDENT verified today. Rx last filled on12/06/24. Pill count performed. Pt has 69 pills at this time, 67 at least expected. Medication is not over used by patient. UTOX completed. Positive for OXY & THC, Negative for AMP, BAR, BUP, BZO,ISAAC, FTY, MDMA, MET, MOP, MTD, PCP, TCA. UTOX as expected. Pt states he does not smoke or eat marijuana products. He said he sits right next to his who smokes marijuana and that's why it's in his urine. Discussed postop pain medication plan. Advised to speak to his surgeon prior to his surgeryabout his postop pain medication plan. Pt made aware he is not to use his chronic pain medication at the same time as his post op pain medication. Last PCP visit was 10/15/24. 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 P: Pt to continue taking medication only as prescribed; Next DRYWALL FINISHING FOREMAN Renewal appointment scheduled for 02/11/25 @ 11:30am, F/U sooner PRN. Appointment reminder given. Pt verbalized understanding and agreed to plan. documented in this encounter Plan of Treatment Upcoming Encounters Date Type Department Care Team (Late st Contact Info) Description 02/11/2025 11:30 AM EDT Clinical Support [address] [address] Krysta Huston RN 03/13/2025 10:30 AM EDT Office Visit [address] [address] Rafiq Grace MD [address] [place] [address] documented as of this encounter Procedures Procedure Name Priority Date/Time Associated Diagnosis Comments POCT FRANCI-14 URINE DRUG SCREEN Routine 12/17/2024 11:37 AM EST Chronic pain syndrome documented in this encounter Results * POCT FRANCI-14 Urine Drug Screen (12/17/2024 11:37 AM EST) THC Positive Oxycodone Screen, Urine Positive Urine Urine specimen obtained by clean catch procedure / Unknown 12/17/2024 11:37 AM EST Narrative Krysta Huston RN - 12/17/2024 11:37 AM EST UTOX cup Lot#[id number] Exp. 08/20/26 Internal Pass Control Rafiq Grace MD POINT OF CARE TEST ENTER/EDIT OR DERABLES Final Result documented in this encounter Visit Diagnoses Diagnosis Chronic pain syndrome- Primary documented in this encounter Additional Health Concerns Assessment Noted Time PHQ-9 Depression Total Score: 0 02/05/20 24 2:30 PM EDT documented as of this encounter Care Teams Digital Composer Relationship Specialty Start Date End Date Rafiq Grace, MD [address] [place] [address] PCP - General Family Medicine 12/16/15 documented as of this encounter
--- OUTSIDE RECORDS SUMMARY | 2024-12-23 12:13 | XMS_ITS | Encounter Summary ---
Author Organization [employer] Address 75 [facility] 7t [place] [address] Care Team Providers Care Film Cutter Name Role Phone Name, Rafiq JENKINS Primary Care Provider [phone] Reason for Visit * Reason Comments Med Change Request Encounter Details Date Type Department Care Team ([facility] st Contact Info) Description 09/24/2023 Refill [facility] MEDICINE 230 [place], [place] [phone] Name, MD Rafiq 230 [place], [place] [phone] Social History Tobacco Use Types Packs/Day Years [...] Description 02/11/2025 11:30 AM EDT Clinical Support [address] [address] Krysta Huston RN 03/13/2025 10:30 AM EDT Office Visit [address] [address] Name, MD Rafiq [address] [place] [address] documented as of this encounter Visit Diagnoses Not on filedocumented in this encounter Care Teams Film Cutter Relationship Specialty Start Date End Date Name, MD Rafiq [address] [place] [address] PCP - General Family Medicine 12/16/15 documented as of this encounter
--- OUTSIDE RECORDS SUMMARY | 2024-12-23 12:13 | XMS_ITS | Encounter Summary ---
Author Organization [employer] [facility] Address [address] [place] [address] 7t [place] [address] Care Team Providers Care Enrolled Nurse Name Role Phone Name, Rafiq JENKINS Primary Care Provider [phone] Reason for Visit * Reason Comments Med Refill Encounter Details Date Type Department Care Team (Late Contact Info) Description 03/13/2023 Refill [facility] MEDICINE 230 [place], [place] [phone] Sabine Boyd MD 230 [place], [place] [phone] Social History Tobacco Use Types Packs/Day Years [...] suspected to have Coronavirus/COVID-19? No / Unsure 03/09/2023 8:52 AM EDT documented as of this encounter Plan of Treatment Upcoming Encounters Date Type Department Care Team (Late Contact Info) Description 02/11/2025 11:30 AM EDT Clinical Support [address] [address] Krysta Huston, LUCAS 03/13/2025 10:30 AM EDT Office Visit [address] [address] Name, MD Rafiq [address] [place] [address] documented as of this encounter Visit Diagnoses Not on filedocumented in this encounter Care Teams Enrolled Nurse Relationship Specialty Start Date End Date Name, MD Rafiq [address] [place] [address] PCP - General Family Medicine 12/16/15 documented as of this encounter
--- OUTSIDE RECORDS SUMMARY | 2024-12-23 12:13 | XMS_ITS | Encounter Summary ---
Author Organization [employer] Address 75 [facility] 7t [place] [address] Care Team Providers Care Mothers Helper Name Role Phone Name, Rafiq JENKINS Primary Care Provider [phone] Reason for Visit * Reason Onset Date Comments Med Refill 12/05/2024 Encounter Details Date Type Department Care Team ([facility] st Contact Info) Description 12/05/2024 Refill [facility] MEDICINE 230 [place], [place] [phone] Name, MD Rafiq 230 [place], [place] [phone] Chronic low back pain, unspecified back pain laterality, unspecified whether sciatica present Social History Tobacco Use Types Packs/Day Years [...] your housing situation today? I have lucrecia arsh 02/05/[address] you li [...] encounter Miscellaneous Notes * Telephone Encounter - Felix Lua - 12/05/2024 9:54 AM EST TC from pt requesting medication refill. Medications needing refill: oxyCODONE-acetaminophen (Percocet) 5-325 MG tablet To be sent to: [facility]/pharmacy #[id number] AT [facility] documented in this encounter Plan of Treatment Upcoming Encounters Date Type Department Care Team (Late st Contact Info) Description 02/11/2025 11:30 AM EDT Clinical Support [facility] MEDICINE [address] [place] [address] Krysta Huston RN 03/13/2025 10:30 AM EDT Office Visit [facility] MED[facility]INE [address] [place] [address] Name, MD Rafiq [address] [place] [address] documented as of this encounter Visit Diagnoses Diagnosis Chronic low back pain, unspecified back pain laterality, unspecified whether sciatica present documented in this encounter Additional Health Concerns Assessment Noted Time PHQ-9 Depression Total Score: 0 02/05/20 24 2:30 PM EDT documented as of this encounter Care Teams Mothers Helper Relationship Specialty Start Date End Date Rafiq Grace MD 230 [place] [address] PCP - General Family Medicine 12/16/15 documented as of this encounter
--- OUTSIDE RECORDS SUMMARY | 2024-12-23 12:13 | XMS_ITS | Clinical Summary ---
Author Organization [employer] Address [address] [place] [address] [address] [place] [address] Care Team Providers Care Customer Service Security Officer Name Role Phone Name, Rafiq JENKINS Primary Care Provider [phone] Allergies Active Allergy Reactions Criticality Noted Date Comments Ibuprofen 07/21/2015 Bleeding from bladder Naproxen 01/17/2016 Medications clopidogrel (Plavix) 75 MG tablet Take 1 tablet by mouth Once daily. 07/14/20 22 Active Diclofenac Sodium 1 % gel APPLY 2 GRAMS TO AFFECTED AREA TWICE A DAY 08/28/20 22 Active ergocalciferol (Vitamin D-2) 1.25 MG (61641 UT) capsule Take 1 capsule by mouth 1 (one) time per week. 02/25/20 21 Active fluticasone (Flovent) 220 MCG/ACT inhaler Inhale 1 puff every 12 (twelve) hours. Rinse mouth after using. 03/25/20 21 Active isosorbide mononitrate ER (Imdur) 60 MG 24 hr tablet Take 1 tablet by mouth Once daily. 03/18/20 22 Active metoprolol tartrate (Lopressor) 100 MG tablet Take 1 tablet by mouth with breakfast and with evening meal. 09/23/20 22 Active tamsulosin (Flomax) 0.4 MG 24 hr capsule TAKE 1 CAPSULE BY MOUTH EVERY DAY 1/2 HOUR FOLLOWING THE SAME MEAL EACH DAY 04/08/20 22 Active baclofen (Lioresal) 10 MG tablet TAKE 1 TABLET BY MOUTH TWICE A DAY 60 tablet 08/31/20 23 Active nicotine polacrilex (Nicorette) 4 MG gum 1 each as needed Q-4-6h PRN for nicotine cravings 90 each 11 09/04/20 23 Active Multiple Vitamin (Daily-Maddi Multivitamin) tablet TAKE 1 TABLET BY MOUTH EVERY DAY IN THE MORNING 90 tablet 3 09/07/20 23 Active Blood Pressure kit Use once a day 1 kit 02/05/20 24 Active ezetimibe (Zetia) 10 MG tabletIndicatio ns:Hypercholest erolemia Take 1 tablet (10 mg) by mouth in the morning. 30 tablet 11 02/08/20 24 025 Active fluticasone (Flonase) 50 MCG/ACT nasal sprayIndication s:Allergic rhinitis, unspecified seasonality, unspecified trigger Administer 2 sprays into each nostril in the morning. Shake gently. Before first use, prime pump. After use, clean tip and replace cap. 16 g 2 02/08/20 24 025 Active clobetasol (Temovate) 0.05 % cream APPLY TO AFFECTED AREA TWICE A DAY TOPICALLY 60 g 2 02/26/20 24 Active nitroglycerin (Nitrostat) 0.[address] 1 TABLET BY SUBLINGUAL ROUTE AT 1ST SIGN OF ATTACK MAY REPEAT EVERY 5 MINUTES UP TO 3 TABS IF NORELIEF SEEK MEDICAL HELP 100 tablet 03/18/20 24 Active atorvastatin (Lipitor) 80 MG tabletIndicatio ns:Hypercholest erolemia TAKE 1 TABLET BY MOUTH EVERY DAY 90 tablet 1 06/12/20 24 Active pantoprazole (ProtoNix) 20 MG EC tablet Take 1 tablet (20 mg) by mouth Once per day. Do not crush, chew, or split. 90 tablet 3 08/11/20 24 Active gabapentin (Neurontin) 300 MG capsule Take 1 capsule (300 mg) by mouth 2 times daily. 60 capsule 11 10/15/20 24 025 Active Breo Ellipta 200-25 MCG/ACT aerosol powder INHALE 1 PUFF BY MOUTH DAILY *RINSE MOUTH AFTER EACH USE* 08/19/20 24 Active Incruse Ellipta 62.5 MCG/ACT aerosol powder Inhale Once per day. 08/19/20 24 Active alirocumab (Praluent) 75 MG/ML injection Inject 1 mL (75 mg) under the skin every 14 (fourteen) days. 2 mL 2 10/17/20 24 Active aspirin (Aspirin Low Dose) 81 MG EC tabletIndicatio ns:Coronary artery disease involving karuk coronary artery of karuk heart without angina pectoris TAKE 1 TABLET BY MOUTH EVERY DAY 90 tablet 1 11/05/20 24 Active albuterol (Ventolin HFA) 108 (90 Base) MCG/ACT inhalerIndicati ons:Mild intermittent asthma, unspecified whether complicated TAKE 2 PUFFS BY MOUTH EVERY 4 TO 6 HOURS NEEDED 18 g 12/05/19 25 Active oxyCODONE-aceta minophen (Percocet) 5-325 MG tabletIndicatio ns:Chronic low back pain, unspecified back pain laterality, unspecified whether sciatica present Take 1 tablet by mouth every 6 (six) hours if needed for severe pain for up to 28 days. Do not start before December 06, 2024. 112 tablet 12/06/19 25 025 Active albuterol (Ventolin HFA) 108 (90 Base) MCG/ACT inhalerIndicati ons:Mild intermittent asthma, unspecified whether complicated TAKE 2 PUFFS BY MOUTH EVERY 4 TO 6 HOURS NEEDED 18 g 2 06/04/20 23 025 Discontinued(R eorder (will not trigger notification to Pharmacy)) oxyCODONE-aceta minophen (Percocet) 5-325 MG tabletIndicatio ns:Chronic low back pain, unspecified back pain laterality, unspecified whether sciatica present Take 1 tablet by mouth every 6 (six) hours if needed for severe pain for up to 28 days. 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 We decided to treated with drug-eluting stent with intravascular ultrasound guidance. CAD (coronary artery disease) 12/01/2016 Overview (02/06/2024): He follows at [facility]. Cardiac catheterization was in January 2021 when he had 2 drug-eluting stents placed to the left circumflex artery. At that time he had 40% prox LAD stenosis as well as 90% ostial diagonal stenosis. He had 40% prox RCA stenosis at that time. He had worsening angina 2021 he had exercise test with chest discomfort but did not develop EKG changes. Repeat cardiac catheterization done 06/2022. He has left circumflex stents and moderate disease in the right coronary artery as before. His LAD appeared 60-70% stenosed proximally which was assessed with IFR and FFR and both were abnormal. We decided to treated with drug-eluting stent with intravascular ultrasound guidance Umbilical hernia without obstruction and without gangrene 04/14/2016 Tobacco use disorder, continuous 01/17/2016 HLD (hyperlipidemia) 01/17/2016 HTN (hypertension) 01/17/2016 Chronic back pain 01/17/2016 Anxiety 01/17/2016 Lumbar spondylosis 01/17/2016 Old myocardial infarction 01/17/2016 Severe obesity (BMI 35.0-39.9) with comorbidity 07/22/2009 Depression 05/20/2009 Asthma 09/07/2008 Overview (11/23/2022): Only on albuterol. 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 Tier 2 12/05/2024 Refill [facility] [address] [facility] [place] [address] Rafiq Grace MD Mild intermittent asthma, unspecified whether complicated 12/05/2024 Refill [facility] [address] [facility] [place] [address] Rafiq Grace MD Chronic low back pain, unspecified back pain laterality, unspecified whether sciatica present 12/04/2024 Telephone [facility] [address] [facility] [place] [address] Rafiq Grace MD No Show 11/18/2024 Telephone [facility] MEDICINE [address] [facility] [address] Rafiq Grace MD CALLBACK REQUESTED 11/18/2024 Telephone [facility] [address] [facility] [place] [address] Rafiq Grace MD FMLA (I called the patient regarding an application for FMLA, from [employer]. I reached his voicemail, and left a message asking him to return my call at ext [phone].) 11/05/2024 Refill [facility] [address] Rafiq Grace MD Coronary artery disease involving karuk coronary artery of karuk heart without angina pectoris 11/05/2024 Refill [facility] [place] [address] Rafiq Grace MD Chronic low back pain, unspecified back pain laterality, unspecified whether sciatica present 10/29/2024 Telephone [facility] [address] [place] [phone] Mariely Perez [place] Approval notification 10/28/2024 Telephone [facility] [address] [place] [address] Elizabeth Edge, LUCAS 10/21/2024 Telephone [facility] [address] [place] [phone] Qing Alcaraz RN 10/17/2024 Telephone [facility] [address] [place] [address] Rafiq Grace MD Letter for School/Work 10/17/2024 Orders Only [facility] [facility] [place] [address] NameRafiq MD 10/17/2024 Orders Only [facility] External Provider, [facility] 10/17/2024 Telephone [facility] [facility] [place] [address] Elizabeth Edge RN 10/15/2024 3:45 PM EST Office Visit [facility] [place] [address] NameRafiq MD Coronary artery disease involving karuk coronary artery of karuk heart with unstable angina pectoris (CMS/HCC) (Primary Dx); Other emphysema (CMS/HCC); Bilateral carpal tunnel syndrome; Chronic bilateral low back pain with left-sided sciatica 10/15/2024 Travel 10/13/2024 Telephone [facility] [address] [facility] [place] [address] Monique Bal MA Chart Prep 10/07/2024 Refill [facility] [address] [facility] [place] [address] NameRafiq MD Chronic low back pain, unspecified back pain laterality, unspecified whether sciatica present 09/29/2024 Orders Only [facility] External Provider, [facility] 09/24/2024 9:30 AM EDT Clinical Support [facility] [address] [facility] [place] [address] Krysta Huston, commutator inspector pain syndrome (Primary Dx) 09/24/2024 Telephone [facility] [place] [address] Krysta Huston, RN percocet count discrepancy 09/24/2024 Travel from Last 3 Months Immunizations Name Administration Dates Next Due HepB-CpG 05/15/2023,04/11/2023 Influenza injectable quadriv alent IIV4 with preservative 11/14/2019,08/28/2016 Influenza injectable quadriv alent preservative free 09/05/2023,08/18/2022,09/03/2017 Influenza, IIV3, injectable 09/10/2015,1 ,08/12/2013,08/20,11/02/2011,04/09/2010,09/07/2008 Influenza, seasonal, injecta ble, preservative free 08/11/2024 Novel gybauerpf-[id number], preservative-free 01/26/2010 Pneumococcal Conjugate PCV 20 04/11/2023 Pneumococcal Polysaccharide PPSV23 03/23/2014 TD (adult), 2 Lf tetanus tox oid, preservative free, adsorbed 09/07/2008 Tdap 12/09/2021,06/24/2019,09/07/2008 Zoster, Recombinant 05/23/2023,03/21/2023 Social History Tobacco Use Types Packs/Day Years Used Date Smoking Tobacco: Every Day Cigarettes 0.5 41 Passive Smoke Exposure: Current Smokeless Tobacco: Never Tobacco Cessation:Ready to Q uit: Not Asked; Counseling Given: Not Answered Alcohol Use Standard Drinks/Week Comments Yes 3 (1 standard drink = 0.6 oz pur e alcohol) social Depression Answer Date Recorded Patient Health Questionnaire-9 Score 0 02/05/2024 Patient Health Questionnaire-9 Score 0 02/05/2024 Last PHQ-9: Questionnaire Data Not on file 0 02/05/2024 Housing Stability Answer Date Recorded What is your housing situation today? I have lucreciagarrett caban 02/05/[address] you [...] Orientation Straight 09/25/2022 10 :24 AM EDT Last Filed Vital Signs Vital Sign Reading Time Taken Comments Blood Pressure 142/77 10/15/2024 3:40 PM EST Pulse 63 10/15/2024 3:40 PM EST Temperature 36.6 ??C (97.8 ??F) 10/15/2024 3:40 PM ES T Respiratory Rate 18 10/15/2024 3:40 PM EST Oxygen Saturation 97% 10/15/2024 3:40 PM EST Inhaled Oxygen Concentration - - Weight 94.1 kg (207 lb 6.4 oz) 10/15/2024 3:40 P M EST Height 160 cm (5' 3 ) 10/15/2024 3:40 PM EST Body Mass Index 36.74 10/15/2024 3:40 PM EST Plan of Treatment Upcoming Encounters Date Type Department Care Team (Late st Contact Info) Description 02/11/2025 11:30 AM EDT Clinical Support [facility] [address] [place] [phone] Krysta Huston RN 03/13/2025 10:30 AM EDT Office Visit [address] [address] Name, MD Rafiq [address] [place] [phone] Health Maintenance Due Date Last Done Comments CT Colonography 1965 Dental Prophylaxis 1967 FIT DNA/Cologuard 1967 FIT 1965 FOBT 1965 HIV Screening 1965 Sigmoidoscopy 1965 Hepatitis A Vaccines (1 of 2 - Risk 2-dose series) 1986 Dental Oral Exam 06/15/2023 12/15/2022 Dental X-Ray: Bitewings 12/16/2023 12/15/2022 Lung Cancer Screening 07/03/2024 07/03/2023 COVID-19 Vaccine ( season) 2024 12/19/2021, 05/02/2021, 04/04/2021 Diabetes: Hemoglobin A1C 12/03/2024 024, 05/02/2023, 06/28/2022, Additional history exists Depression Screening 02/04/2025 02/05/2024, 02/05/20 24 SDOH Screening 02/04/2025 02/05/2024 Alcohol/Substance Use Screening 10/15/2025 10/15/2024 Tobacco Screening 10/15/2025 10/15/2024 Dental X-Ray: Full Mouth 12/16/2025 12/15/2022 Colonoscopy 12/24/2025 12/24/2020 Colorectal Cancer Screening 12/24/2025 Lipid Panel 10/17/2029 10/17/2024, 01/24, 02/21/2023, Additional history exists DTaP/Tdap/Td Vaccines (4 - Td or Tdap) 12/09/2031 12/09/2021, 06/24/2019, 09/07/2008, Additional history exists RSV Patients and Patients Aged 60 years or older (1 - 1-dose 75+ series) 2042 Pneumococcal Vaccine: Pediatrics (0 to 5 Years) and At-Risk Patients (6 to 64 Years) Completed 04/11/2023, 03/23/2014 Hepatitis B Vaccines Completed 05/15/2023, 04/11/20 Zoster Vaccines Completed 05/23/2023, 03/21/2023 Hepatitis C Screening Completed 02/06/2024 Influenza Vaccine Completed 08/11/2024, , 08/18/2022, Additional history exists HIB Vaccines Aged Out No longer eligi ble based on patient's age to complete this topic HPV Vaccines Aged Out No longer eligi ble based on patient's age to complete this topic IPV Vaccines Aged Out No longer eligi ble based on patient's age to complete this topic Meningococcal Vaccine Aged Out No shakila alberto eligible based on patient's age to complete this topic RSV under 20 months Aged Out No longe r eligible based on patient's age to complete this topic Rotavirus Vaccines Aged Out No longer eligible based on patient's age to complete this topic Procedures Procedure Name Priority Date/Time Associated Diagnosis Comments POCT FRANCI-14 URINE DRUG SCREEN Routine 12/17/2024 11:37 AM EST Chronic pain syndrome FL ESOPHAGUS BARIUM SWALLOW WITH AIR Routine 11/27/2024 8:00 AM EST XR CHEST 2 VIEWS Routine 10/17/2024 3:06 PM EST LIPID PANEL, STANDARD Routine 10/17/2024 10:27 AM EST Coronary artery disease involving karuk coronary artery of karuk heart with unstable angina pectoris (CMS/HCC) XR KNEE 3 VIEWS LEFT Routine 09/29/2024 10:36 AM EST POCT FRANCI-14 URINE DRUG SCREEN Routine 09/24/2024 9:35 AM EDT Chronic pain syndrome HEPATITIS C ANTIBODY Routine 02/06/2024 12:22 PM EDT Need for hepatitis C screening test POCT GLYCATED HEMOGLOBIN, TOTAL Routine 12/03/2023 4:16 PM EST Prediabetes HM LUNG CANCER SCREENING Routine 07/03/2023 DIAGNOSTIC - DIAGNOSTIC IMAGING - INTRAORAL - COMPREHENSIVE SERIES OF RADIOGRAPHIC IMAGES Routine 12/15/2022 2:00 PM EST Periodontal disease COMPREHENSIVE ORAL EVALUATION - NEW OR ESTABLISHED PATIENT Routine 12/15/2022 2:00 PM EST Periodontal disease HM COLONOSCOPY Routine 12/24/2020 12:59 PM EST from Last 3 Months or Most Recently Relevant to Health Maintenance Results * POCT FRANCI-14 Urine Drug Screen (12/17/2024 11:37 AM EST) Only the most recent of2 resultswithin the time period is included. THC Positive Oxycodone Screen, Urine Positive Urine Urine specimen obtained by clean catch procedure / Unknown 12/17/2024 11:37 AM EST Krysta Moon RN - 12/17/2024 11:37 AM EST UTOX cup Lot#[id number] Exp. 08/20/26 Internal Pass Control us Rafiq Name MD POINT OF CARE TEST ENTER/EDIT OR DERABLES Final Result * FL Esophagus Barium Swallow w/Air (11/27/2024 8:00 AM EST) Anatomical Region Laterality Modality Head, Neck Radiographic Nova ging 11/27/2024 8:00 AM EST Narrative 11/27/2024 4:09 PM EST ? [facility] ?[address] ?[place] [address] ? Fluoroscopy Report ? Signed ? Patient: Deidre Colon,Trenton ?MR#: M ?? [id number] ? : 1965 ?Acct:[id number] ? Age/Sex: 59 / M ?ADM Date: 11/27/24 ? Loc: HO.XRAY ? Attending Dr: Rafiq Grace MD ? Ordering Physician: Rafiq Grace MD ?? Date of Service: 11/27/24 ?? Procedure(s): FL barium swallow with air ?? Accession Number(s): [id number] ? cc: Rafiq Grace MD ? EXAMINATION: ?? XR FLUOROSCOPY UPPER GI WITH AIR ? CLINICAL INFORMATION: ?? Dysphagia. ? COMPARISON: ?? None ? TECHNIQUE: ?? Fluoroscopic air contrast upper GI examination was performed utilizing ?? standard techniques with thin and thick barium and effervescent ?? granules. Numerous spot images were obtained. ? FINDINGS: ?? Lateral cine images of the oropharynx and hypopharynx demonstrate ?? normal swallow mechanism with normal epiglottic inversion and soft ?? palate elevation. No tracheal penetration, glottic or subglottic ?? aspiration identified. No nasopharyngeal reflux present. Hypopharyngeal ?? structures appear normal without evidence of mass or diverticulum. ?? There was no significant cricopharyngeal achalasia. There is a small ?? anterior bridging osteophyte at C5-C6 that does not appear to be ?? causing any significant posterior indentation of the cervical esophagus. ? Dual and single contrast images of the esophagus demonstrate normal ?? caliber, contour, and mucosal pattern. No evidence of stricture, mass, ?? or ulcerations identified. Esophageal peristalsis is moderately ?? disorganized. ? A small type I hiatal hernia is present. No significant ?? gastroesophageal reflux was seen during the course of the examination ?? and on reflux views. ? Dual contrast and single contrast images of the stomach demonstrated a ?? normal contour. The gastric rugal folds have a thickened appearance, ?? suggestive of gastritis. No masses or ulcerations are seen. Contrast ?? freely passed into the gastric antrum and duodenal bulb without delay. ? Single and air-contrast images of the duodenal bulb demonstrate no ?? abnormality. The duodenal sweep has a normal appearance, course, and ?? mucosal fold appearance. The imaged proximal jejunum has a normal fold ?? pattern and caliber. ? FLUOROSCOPY TIME: ?? 4 minutes 35 seconds ? Number of Spot Images: 7 ?? Number of Cine: 13 ? DOSE AREA PRODUCT: ?? 3171 uGy-m2 (microgray-meter squared) ? FL/FL barium swallow with air ?? IMPRESSION: ?? 1. Small anterior bridging osteophyte at C5-C6 that does not appear to ?? be causing any significant posterior indentation of the cervical ?? esophagus. ? 2. Moderate esophageal dysmotility. ?? 3. Small type I hiatal hernia. ?? 4. Thickened appearance of the gastric rugal folds, suggestive of ?? gastritis. ? This procedure was performed by Juma Erazo PA-C, and supervised by ?? Dr. Rosen. ? Electronically signed by: ??Omar Rosen MD ??11/27/2024 04:07 PM EST RP ? Dictated By: ?Juma Erazo ? Signed By: ?<Electronically signed by Juma Erazo in OV> ? 11/27/24 1607 ?<Electronically signed by Omar Rosen MD in OV> ? 11/27/24 1609 ? DD/ 0800 ? TD/TT: 11/27/24 0825 ? Pneumatic Jacketer: ? Procedure Note Navid, Image - 11/27/[address] [address] Fluoroscopy Report Signed Patient: Erick Bejarano#: M [id number] : 1965Acct:[id number] Age/Sex: 59 / MADM Date: 11/27/24 Loc: [facility] Attending Dr: Rafiq Grace MD Ordering Physician: Rafiq Grace MD Date of Service: 11/27/24 Procedure(s): FL barium swallow with air Accession Number(s): [id number] cc: Rafiq Grace MD EXAMINATION: XR FLUOROSCOPY UPPER GI WITH AIR CLINICAL INFORMATION: Dysphagia. COMPARISON: None TECHNIQUE: Fluoroscopic air contrast upper GI examination was performed utilizing standard techniques with thin and thick barium and effervescent granules. Numerous spot images were obtained. FINDINGS: Lateral cine images of the oropharynx and hypopharynx demonstrate normal swallow mechanism with normal epiglottic inversion and soft palate elevation. No tracheal penetration, glottic or subglottic aspiration identified. No nasopharyngeal reflux present. Hypopharyngeal structures appear normal without evidence of mass or diverticulum. There was no significant cricopharyngeal achalasia. There is a small anterior bridging osteophyte at C5-C6 that does not appear to be causing any significant posterior indentation of the cervical esophagus. Dual and single contrast images of the esophagus demonstrate normal caliber, contour, and mucosal pattern. No evidence of stricture, mass, or ulcerations identified. Esophageal peristalsis is moderately disorganized. A small type I hiatal hernia is present. No significant gastroesophageal reflux was seen during the course of the examination and on reflux views. Dual contrast and single contrast images of the stomach demonstrated a normal contour. The gastric rugal folds have a thickened appearance, suggestive of gastritis. No masses or ulcerations are seen. Contrast freely passed into the gastric antrum and duodenal bulb without delay. Single and air-contrast images of the duodenal bulb demonstrate no abnormality. The duodenal sweep has a normal appearance, course, and mucosal fold appearance. The imaged proximal jejunum has a normal fold pattern and caliber. FLUOROSCOPY TIME: 4 minutes 35 seconds Number of Spot Images: 7 Number of Cine: 13 DOSE AREA PRODUCT: 3171 uGy-m2 (microgray-meter squared) FL/FL barium swallow with air IMPRESSION: 1. Small anterior bridging osteophyte at C5-C6 that does not appear to be causing any significant posterior indentation of the cervical esophagus. 2. Moderate esophageal dysmotility. 3. Small type I hiatal hernia. 4. Thickened appearance of the gastric rugal folds, suggestive of gastritis. This procedure was performed by Juma Erazo PA-C, and supervised by Dr. Rosen. Electronically signed by: Omar Rosen MD 11/27/2024 04:07 PM EST RP Dictated By: Juma Erazo Signed By: <Electronically signed by Juma Erazo in OV> 11/27/24 1607 <Electronically signed by Omar Rosen MD in OV> 11/27/24 1609 DD/ 0800 TD/TT: 11/27/24 0825 Pneumatic Jacketer: us Rafiq Grace MD IMG FLUOROSCOPY PROCEDURES Edite d Result - Final * XR Chest 2 Views (10/17/2024 3:06 PM EST) Anatomical Region Laterality Modality Chest Radiographic Nova ging 10/17/2024 3:06 PM EST Narrative 10/17/2024 3:47 PM EST ? [facility] ?[address] ?[place] [address] ?XRay Report ? Signed ? Patient: Deidre Colon,Trenton ?MR#: M ?? [id number] ? : 1965 ?Acct:[id number] ? Age/Sex: 59 / M ?ADM Date: 10/17/24 ? Loc: HO.XRAY ? Attending Dr: Kylah Calderon MD ? Ordering Physician: Kylah Calderon MD ?? Date of Service: 10/17/24 ?? Procedure(s): XR chest 2V ?? Accession Number(s): [id number] ? cc: Rafiq Grace MD; Kylah Calderon MD ? EXAMINATION: ?? XR CHEST ? CLINICAL INFORMATION: ?? R05.8 - Other specified cough ? COMPARISON: ?? X-ray dated August 19, 2024. ? TECHNIQUE: ?? 2 views of the chest were obtained. ? FINDINGS: ?? Patchy opacity right middle lobe. No pleural effusion or pneumothorax. ?? Cardiomediastinal silhouette is normal in size. Multilevel thoracic ?? spondylosis. ? XR/XR chest 2V ?? IMPRESSION: ?? Concerning airspace disease right middle lung lobe. ? Electronically signed by: ??Ciaran Anderson MD ??10/17/2024 03:42 PM ?? EST RP ? Dictated By: ?Ciaran Palomo MD ? Signed By: ?<Electronically signed by Ciaran Guzman MD in OV> ? 10/17/24 1542 ? DD/ 1506 ? TD/TT: 10/17/24 1520 ? Pneumatic Jacketer: ? Procedure Note Donhajater, Image - 10/17/2024 24 [address] [address] XRay Report Signed Patient: Latrice BejaranoR#: M [id number] : 1965Acct:[id number] Age/Sex: 59 / MADM Date: 10/17/24 Loc: HO.XRAY Attending Dr: Kylah Calderon MD Ordering Physician: Kylah Calderon MD Date of Service: 10/17/24 Procedure(s): XR chest 2V Accession Number(s): [id number] cc: Name,Rafiq JENKINS; Kylah Calderon MD EXAMINATION: XR CHEST CLINICAL INFORMATION: R05.8 - Other specified cough COMPARISON: X-ray dated August 19, 2024. TECHNIQUE: 2 views of the chest were obtained. FINDINGS: Patchy opacity right middle lobe. No pleural effusion or pneumothorax. Cardiomediastinal silhouette is normal in size. Multilevel thoracic spondylosis. XR/XR chest 2V IMPRESSION: Concerning airspace disease right middle lung lobe. Electronically signed by: Ciaran Anderson MD 10/17/2024 03:42 PM EST Dictated By: Ciaran Palomo MD Signed By: <Electronically signed by Ciaran Guzman MDin OV> 10/17/24 1542 DD/ 1506 TD/TT: 10/17/24 1520 Pneumatic Jacketer: [facility] External Provider IMG XR PROCEDURES Final Result * (ABNORMAL) Lipid Panel, Standard (10/17/2024 10:27 AM EST) Triglycerides 164(H) <150 mg/dL [facility] Comment:Desirable Triglyceri de: less than 150 mg/dLBorderline High Triglyceride 150-199 mg/dLHigh Triglyceride: 200-499 mg/dLVery High Triglyceride: greater than or equal to 5OO mg/dL Cholesterol 214(H) <200 mg/dL [facility] Comment:Desirable Cholestero l: less than 200 mg/dLBorderline High Cholesterol: 200-239 mg/dLHigh Cholesterol: greater than 239 mg/dL LDL Cholesterol Calculated 151(H) <100 mg/dL [facility] Comment:Desirable LDL: less than 100 mg/dLNear Optimal/Above Optimal LDL: 110- 129 mg/dLBorderline High LDL: 130-159 mg/dLHigh LDL: 160-189 mg/dLVery High LDL: greater than or equal to 190 mg/dL HDL Cholesterol 31(L) >40 mg/dL [facility] Comment:Desirable HDL: great er than 40 mg/dL Note: This HDL assay may give artificially low results in patients with liver disease. Blood Venous blood specimen / Unknown 10/17/2024 10:27 AM EST 10/17/2024 11:05 AM EST us Rafiq Name LAB BLOOD ORDERABLES Final Resul t [facility] [address] [place] [phone] * XR Knee 3 Views Left (09/29/2024 10:36 AM EST) Anatomical Region Laterality Modality Lower Extremities, Knee Left Radiogra phic Imaging 09/29/2024 10:3 6 AM EST Narrative 11/17/2024 7:33 AM EST ? [facility] ?[address] ?[place] [address] ?XRay Report ? Signed ? Patient: Deidre Colon,Trenton ?MR#: M ?? [id number] ? : 1965 ?Acct:[id number] ? Age/Sex: 59 / M ?ADM Date: 11/04/24 ? Loc: HO.XRAY ? Attending Dr: Kristan PETTY ? Ordering Physician: Kristan Oconnell ?? Date of Service: 09/29/24 ?? Procedure(s): XR knee LT 3V ?? Accession Number(s): [id number] ? cc: Kristan Oconnell; Name,Rafiq JENKINS ? EXAMINATION: ?? XR KNEE LEFT ? CLINICAL INFORMATION: ?? Pain in left knee M25.562. Patient states pain all the time. ? COMPARISON: ?? None available ? TECHNIQUE: ?? Four views of the left knee. ? FINDINGS: ?? No fracture or joint effusion. Alignment is anatomic. Joint spaces are ?? maintained. No abnormal soft tissue calcification. ? XR/XR knee LT 3V ?? IMPRESSION: ?? Normal left knee. ? Electronically signed by: ??Alan Victoria MD ??11/17/2024 07:30 AM ?? EST RP ? Dictated By: ?Alan Victoria MD ? Signed By: ?<Electronically signed by Alan Victoria MD in OV> ?11/17/24 0730 ? DD/ 1036 ? TD/TT: 09/29/24 1103 ? Pneumatic Jacketer: FELICIA ? Procedure Note Halima Shoemaker - 11/17/2024 [place] [address] XRay Report Signed Patient: Erick Bejarano#: M [id number] : 1965Acct:[id number] Age/Sex: 59 / MADM Date: 09/29/24 Loc: MUSA Attending Dr: Kristan PETTY Ordering Physician: Kristan Oconnell Date of Service: 09/29/24 Procedure(s): XR knee LT 3V Accession Number(s): [id number] cc: Kristan Oconnell; Name,Rafiq JENKINS EXAMINATION: XR KNEE LEFT CLINICAL INFORMATION: Pain in left knee M25.562. Patient states pain all the time. COMPARISON: None available TECHNIQUE: Four views of the left knee. FINDINGS: No fracture or joint effusion. Alignment is anatomic. Joint spaces are maintained. No abnormal soft tissue calcification. XR/XR knee LT 3V IMPRESSION: Normal left knee. Electronically signed by: Alan Victoria MD 11/17/2024 07:30 AM EST Dictated By: Alan Victoria MD Signed By: <Electronically signed by Alan Victoria MD inOV> 11/17/24 0730 DD/ 1036 TD/TT: 09/29/24 1103 Pneumatic Jacketer: FELICIA [facility] External Provider IMG XR PROCEDURES Final Result * Hepatitis C Ab (02/06/2024 12:22 PM EDT) Pathologist [facility] Hepatitis C Antibody Nonreactive Nonreactive [facility] Comment:Antibodies to HCV no t detected; does not exclude early acuteHCV infection. Blood Venous blood specimen / Unknown 02/06/2024 12:22 PM EDT 02/06/2024 1:11 PM EDT Result [facility] Rafiq Grace MD LAB BLOOD ORDERABLES Final Resul t Performing Organization Address City/State/[facility] Co de Phone Number [facility] [address] [place] [phone] * POCT HGB A1C (12/03/2023 4:16 PM EST) Pathologist [facility] Hemoglobin A1C 5.6 4.0 - 6.0 % Other 12/03/2023 4:16 PM EST Result [facility] Rafiq Grace MD POINT OF CARE TEST ENTER/EDIT OR DERABLES Final Result * (ABNORMAL) Lung Cancer Screning (07/03/2023) Pathologist [facility] Lung CT LUNGRADS 0(A) LUNGRADS 1, LUNGRADS 2 Anatomical Region Laterality Modality Other Lisa Middleton HEALTH MAINTENANCE Final Resul t * Colonoscopy (12/24/2020 12:59 PM EST) Pathologist [facility] Colonoscopy Normal Normal Narrative Danielle Orellana - 12/24/2020 12:59 PM EST Recommended 5 year follow up Historical Provider HEALTH MAINTENANCE Final Result from Last 3 Months or Most Recently Relevant to Health Maintenance [place] [address] [address] [place] [address] C3 DENTAL-[facility] MEDICAID STAND ADULT DENTAL - HSN FULL (MEDICAID) DENTAL - AETNA DENTAL [employer] [address] [place] [address] Care Teams Customer Service Security Officer Relationship Specialty Start Date End Date Name, MD Rafiq [address] [place] [address] PCP - General Family Medicine 12/16/15
--- OUTSIDE RECORDS SUMMARY | 2024-12-23 12:13 | XMS_ITS | Encounter Summary ---
Author Organization [employer] [facility] Address [address] [place] [address] 7t [place] [address] Care Team Providers Care Computer Customer Support Specialist Name Role Phone Name, Rafiq JENKINS Primary Care Provider [phone] Reason for Visit * Reason Comments Med Refill Encounter Details Date Type Department Care Team (Late Contact Info) Description 06/07/2023 Refill [facility] [address] [place], [place] [phone] Name, MD Rafiq [address] [place] [address] Tobacco use disorder, continuous Social History Tobacco [...] Description 02/11/2025 11:30 AM EDT Clinical Support [address] [address] Krysta Huston, RN 03/13/2025 10:30 AM EDT Office Visit [address] [address] Name, MD Rafiq [address] [place] [address] documented as of this encounter Visit Diagnoses Diagnosis Tobacco use disorder, continuous Tobacco use disorder documented in this encounter Care Teams Computer Customer Support Specialist Relationship Specialty Start Date End Date Name, MD Rafiq [address] [place] [address] PCP - General Family Medicine 12/16/15 documented as of this encounter
--- OUTSIDE RECORDS SUMMARY | 2024-12-23 12:13 | XMS_ITS | Clinical Summary ---
Author Organization [employer] [facility] Address [address] [place] [address] Care Team Providers Care Commercial Green Retrofit Architect Name Role Phone Name, Rafiq JENKINS Primary Care Provider [phone] Surgical History Surgery Date Site/Laterality Comments OTHER SURGICAL HISTORY PROCEDURE: ---- OTHER ----; COMMENT: cardiac cath ESOPHAGOGASTRODUODENOSCOPY 03/28/10 PROCEDURE: OK ESOPHAGOGASTRODUODENOSCOPY TRANSORAL DIAGNOSTIC; COMMENT: normal TONSILLECTOMY PROCEDURE: HISTORICAL TONSILLECTOMY Medical History Medical History Date Comments Bronchitis, not specified as acute or chronic DX:Bronchitis, not specified as acute or chronic; COMMENT: asthma Historical Medical DX 09/07/2008 DX:HTN Historical Medical DX 09/07/2008 DX:HTN Esophageal reflux DX:Esophageal reflux Peripheral neuropathy, idiopathic 07/21/2014 DX:Peripheral neuropathy, idiopathic Umbilical hernia without men tion of obstruction or gangrene 07/02/2015 DX:Umbilical hernia without mention of obstruction or gangrene Chronic narcotic use 07/02/2015 DX:Chronic narcotic use Family History Medical History Relation Name Comments Prostate cancer Father metastatic t o lungs and bones Breast cancer Mother Glaucoma Mother Breast cancer Sister 1 Blindness Neg Hx Cataracts Neg Hx Coronary artery disease Neg Hx Macular degeneration Neg Hx Strabismus Neg Hx Relation Name Status Comments Daughter Alive GERD Father prostate cancer Mother lung cancer Sister 1 Alive heart problems Sister 2 Alive Son 1 Alive asthma Son 2 Alive asthma Social History Tobacco Use Types Packs/Day Years Used Date Smoking Tobacco: Every Day Cigarettes Smokeless Tobacco: Current Alcohol Use Standard Drinks/Week Comments Yes 0 (1 standard drink = 0.6 oz pur e alcohol) Sex and Gender Information Value Date Recorded Sex Assigned at Not on file Gender Identity Not on file Sexual Orientation Not on file Obstetrics History Last Filed Vital Signs Vital Sign Reading Time Taken Comments Blood Pressure - - Pulse - - Temperature - - Respiratory Rate - - Oxygen Saturation - - Inhaled Oxygen Concentration - - Weight 92.5 kg (204 lb) 07/16/2024 2:22 PM EDT Height 165.1 cm (5' 5 ) 07/16/2024 2:22 PM EDT Body Mass Index 33.95 07/16/2024 2:22 PM EDT Plan of Treatment Health Maintenance Due Date Last Done Comments Hepatitis B Vaccines (1 of 3 - 19+ 3-dose series) 1986 Pneumococcal Vaccine: Pediatrics (0 to 5 Years) and At-Risk Patients (6 to 64 Years) (2 of 2 - PCV) 03/23/2015 03/23/2014 Zoster Vaccines (1 of 2) 2017 DTaP,Tdap,and Td Vaccines (2 - Td or Tdap) 09/07/2018 09/07/2008 Cholesterol Screening (Lipid Panel) 10/25/2022 Colorectal Cancer Screening: Colonoscopy 10/25/2022 Depression Screening 10/25/2022 HIV Screening 10/25/2022 Hepatitis C Screening 10/25/2022 Social Influencers of Health Screening 10/25/2022 Hypertension/CHF/CAD Annual BMP Blood Test 11/08/2022 COVID-19 Vaccine ( season) 2024 Influenza Vaccine (#1) 2024 5, 09/09/2014, 08/12/2013, Additional history exists HIB Vaccines Aged Out No longer eligi ble based on patient's age to complete this topic HPV Vaccines Aged Out No longer eligi ble based on patient's age to complete this topic Hepatitis A Vaccines Aged Out No long er eligible based on patient's age to complete this topic IPV Vaccines Aged Out No longer eligi ble based on patient's age to complete this topic MMR Vaccines Aged Out No longer eligi ble based on patient's age to complete this topic Meningococcal ACWY Vaccine Aged Out N o longer eligible based on patient's age to complete this topic RSV Immunization Patients Under 20 months Aged Out No longer eligible based on patient's age to complete this topic Varicella Vaccines Aged Out No longer eligible based on patient's age to complete this topic Care Teams Commercial Green Retrofit Architect Relationship Specialty Start Date End Date Name, MD Rafiq [address] [place], [place] PCP - General Internal Medicine 07/30/08
--- OUTSIDE RECORDS SUMMARY | 2024-12-23 12:13 | XMS_ITS | Encounter Summary ---
Author Organization [employer] Address [address] [facility] 7t [place] [address] Care Team Providers Care Manager Printing Name Role Phone Name, Rafiq JENKINS Primary Care Provider [phone] Reason for Visit * Reason Onset Date Comments Med Refill 12/05/2024 Encounter Details Date Type Department Care Team ([facility] st Contact Info) Description 12/05/[address] [facility] [address] [place], [place] [phone] Name, MD Rafiq [address] [place], [place] [phone] Mild intermittent asthma, unspecified whether complicated Social History Tobacco Use Types Packs/Day Years [...] encounter Miscellaneous Notes * Telephone Encounter - Leonila Kwan LPN - 12/05/2024 10:08 AM EST Breo not prescribed by PCP and protonix has refills. Last seen 10/15/24. PCP VAC. * Telephone Encounter - Felix Lua - 12/05/2024 9:55 AM EST TC from pt requesting medication refill. Medications needing refill: albuterol (Ventolin HFA) 108 (90 Base) MCG/ACT inhaler Breo Ellipta 200-25 MCG/ACT aerosol powder pantoprazole (ProtoNix) 20 MG EC tablet To be sent to: [facility]/pharmacy #[id number] [place] [address] [facility] documented in this encounter Plan of Treatment Upcoming Encounters Date Type Department Care Team (Late st Contact Info) Description 02/11/2025 11:30 AM EDT Clinical Support [facility] [address] [place] [address] Krysta Huston RN 03/13/2025 10:30 AM EDT Office Visit [facility] [address] [place] [address] Name, MD Rafiq [address] [place] [address] documented as of this encounter Visit Diagnoses Diagnosis Mild intermittent asthma, unspecified whether complicated documented in this encounter Additional Health Concerns Assessment Noted Time PHQ-9 Depression Total Score: 0 02/05/20 24 2:30 PM EDT documented as of this encounter Care Teams Manager Printing Relationship Specialty Start Date End Date Name, MD Rafiq [address] [place] [address] PCP - General Family Medicine 12/16/15 documented as of this encounter
--- OUTSIDE RECORDS SUMMARY | 2024-12-23 12:14 | XMS_ITS | Encounter Summary ---
Author Organization [employer] [facility] Address [address] [place] [address] 7t [place] [address] Care Team Providers Care Medical Supply Technician Name Role Phone Name, Rafiq JENKINS Primary Care Provider [phone] Encounter Details Date Type Department Care Team (Late Contact Info) Description 12/29/2022 Abstract [facility] [address] [place] [address] Dario Lynch DDS [address] [place], [place] [phone] Social History Tobacco Use Types Packs/Day Years Used Date Smoking Tobacco: Every Day Cigarettes 0.5 41 Smokeless Tobacco: Never Alcohol Use Standard Drinks/Week [...] suspected to have Coronavirus/COVID-19? No / Unsure 12/19/2022 1:14 PM EST documented as of this encounter Plan of Treatment Upcoming Encounters Date Type Department Care Team (Late Contact Info) Description 02/11/2025 11:30 AM EDT Clinical Support [facility] [address] [place] [address] Krysta Huston RN 03/13/2025 10:30 AM EDT Office Visit [facility] [address] [place] [address] Name, MD Rafiq [address] [place] [address] documented as of this encounter Visit Diagnoses Not on filedocumented in this encounter Care Teams Medical Supply Technician Relationship Specialty Start Date End Date Name, MD Rafiq [address] [place] [address] PCP - General Family Medicine 12/16/15 documented as of this encounter
== END 2024-12-23 11:16 | disposition home or self-care (01) ==
PROVIDERS: PCP Internal Medicine Geriatric Medicine; Visit Provider Nurse Practitioner Family
DX: M25.562 Pain in left knee (principal); M47.816 Spondylosis without myelopathy or radiculopathy, lumbar region; M54.16 Radiculopathy, lumbar region; M51.369 Other intervertebral disc degeneration, lumbar region without mention of lumbar back pain or lower extremity pain; M17.12 Unilateral primary osteoarthritis, left knee; G56.03 Carpal tunnel syndrome, bilateral upper limbs
CPT/HCPCS: 99214

== ENCOUNTER → 2024-12-23 10:59 | Outpatient (BNVA) | payer MEDICAID, SELFPAY | PROVIDERS: PCP Internal Medicine Geriatric Medicine; Visit Provider Nurse Practitioner Family | DX: M25.562 Pain in left knee (principal); M47.816 Spondylosis without myelopathy or radiculopathy, lumbar region; M54.16 Radiculopathy, lumbar region; M51.360 Other intervertebral disc degeneration, lumbar region with discogenic back pain only; M17.12 Unilateral primary osteoarthritis, left knee; G56.03 Carpal tunnel syndrome, bilateral upper limbs | CPT/HCPCS: 99212 ==

== ENCOUNTER → 2024-12-25 18:54 | Outpatient (BNV) | payer MEDICAID, SELFPAY | PROVIDERS: PCP Internal Medicine Geriatric Medicine; Visit Provider Radiology Diagnostic Radiology | DX: M17.12 Unilateral primary osteoarthritis, left knee (principal) | CPT/HCPCS: 73721 ==

== ENCOUNTER 2024-12-25 18:56 | Outpatient (REF) | payer MEDICAID, SELFPAY ==
--- NOTE | ~2024-12-25 | MR_ITS ---
EXAMINATION: MRI LEFT KNEE WITHOUT CONTRAST HISTORY: M25.562 - Pain in left knee COMPARISON: Correlation is made to plain films of the left knee dated 09/29/2024. TECHNIQUE: Coronal T1 and fat-suppressed proton density, sagittal proton density and fat-suppressed proton density, and axial fat suppressed T2 weighted MR images of the left knee were obtained. FINDINGS: Bone marrow: Bone marrow signal intensity is normal. Joint effusion: There is no significant joint effusion. Buck's cyst: There is no Buck's cyst. Articular cartilage: Intact Muscles: There is increased T2 signal intensity within the semimembranosus tendon at its insertion on the proximal tibia. The tendon is enlarged in this region and demonstrates a wavy contour. There is fluid surrounding the distal tendon. Findings are consistent with a high-grade partial tear. There is also a small amount of increased T2 signal intensity within the proximal gastrocnemius tendon compatible with a sprain versus partial tear. Anterior cruciate ligament: Intact Posterior cruciate ligament: Intact Medial collateral ligament: Intact Lateral collateral ligament: Intact Medial meniscus: Minimal degenerative signal in the posterior horn without evidence of a tear. Lateral meniscus: Intact Popliteus tendon: Intact Quadriceps tendon: Intact Patellar tendon: Intact Patellar retinacula: Intact MR/MR knee LT wo con IMPRESSION: High-grade partial tear of the distal semimembranosus tendon. Sprain versus partial tear of the proximal gastrocnemius tendon. Electronically signed by: Nicolas Gavin MD 12/26/2024 08:14 AM [facility]
--- OUTSIDE RECORDS SUMMARY | 2024-12-25 19:45 | XMS_ITS | Encounter Summary ---
Author Organization [employer] [facility] Address [address] [place] [address] 7t [place] [address] Care Team Providers Care Quality Intern Name Role Phone Name, Rafiq JENKINS Primary Care Provider [phone] Reason for Visit * Reason Comments Med Refill Encounter Details Date Type Department Care Team (Late Contact Info) Description 03/13/2023 Refill [facility] [address] [place], [place] [phone] Sabine Boyd MD [address] [place], [place] [phone] Social History Tobacco Use Types Packs/Day Years [...] Description 02/11/2025 11:30 AM EDT Clinical Support [address] [address] Krysta Huston, LUCAS 03/13/2025 10:30 AM EDT Office Visit [address] [address] Name, MD Rafiq [address] [place] [address] documented as of this encounter Visit Diagnoses Not on filedocumented in this encounter Care Teams Quality Intern Relationship Specialty Start Date End Date Name, MD Rafiq [address] [place] [address] PCP - General Family Medicine 12/16/15 documented as of this encounter
--- OUTSIDE RECORDS SUMMARY | 2024-12-25 19:45 | XMS_ITS | Encounter Summary ---
Author Organization [facility] Address [address] [place] [address] Care Team Providers Care Web Systems Developer Name Role Phone Name, Rafiq JENKINS Primary Care Provider Unavailoj e Rafiq Grace MD Primary Care Provider Unavailabl e Magdalena Coreas TRANSMISSION REBUILDER Unavailable [phone] Mk Rolon MD Unavailable [phone] Encounter Details Date Type Department Care Team Description 11/20/2013 [facility] Adult [address] [address] Name, MD Rafiq Social History Tobacco Use Types Packs/Day Years Used Date Smoking Tobacco: Every Day Cigarettes 1 25 Smokeless Tobacco: Never Comments:has started smoking again 4-6 cigarettes a day Alcohol Use Standard Drinks/Week Comments No 0 (1 standard drink = 0.6 oz pur e alcohol) Sex Assigned at Date Recorded Not on file documented as of this encounter Plan of Treatment Not on file documented as of this encounter Visit Diagnoses Not on filedocumented in this encounter Care Teams Web Systems Developer Relationship Specialty Start Date End Date Rafiq Grace MD PCP - General 07/30/08 01/30/16 Rafiq Grace MD PCP - General Internal Medicine 01/31/16 Magdalena Coreas NP Cardiology 04/14/21 Mk Rolon MD [address] [place] [address] [address] [place] [address] Specialist Cardiovascular Disease 04/14/21 documented as of this encounter
--- OUTSIDE RECORDS SUMMARY | 2024-12-25 19:45 | XMS_ITS | Encounter Summary ---
Author Organization [facility] Address [address] [place] [address] Care Team Providers Care Commercial Artist Lettering Name Role Phone Name, Rafiq JENKINS Primary Care Provider Unavailoj e Rafiq Grace MD Primary Care Provider Unavailabl e Magdalena Coreas AIRCRAFT INSPECTOR Unavailable [phone] Mk Rolon MD Unavailable [phone] Encounter Details Date Type Department Care Team Description 03/23/2014 Business Doc Medical Records [address] [place] [address] Abstract, Provider Social History Tobacco Use Types Packs/Day Years [...] on filedocumented in this encounter Care Teams Commercial Artist Lettering Relationship Specialty Start Date End Date Rafiq Grace MD PCP - General 07/30/08 01/30/16 Rafiq Grace MD PCP - General Internal Medicine 01/31/16 Magdalena Coreas NP Cardiology 04/14/21 Mk Rolon MD [address] [place] [address] [address] [place] [address] Specialist Cardiovascular Disease 04/14/21 documented as of this encounter
--- OUTSIDE RECORDS SUMMARY | 2024-12-25 19:45 | XMS_ITS | Encounter Summary ---
Author Organization [employer] [facility] Address [address] [place] [address] 7t [place] [address] Care Team Providers Care Radiology Ct Technologist Name Role Phone Name, Rafiq JENKINS Primary Care Provider Encounter Details Date Type Department Care Team (Late Contact Info) Description 04/27/2023 Abstract [facility] [address] [place] [phone] Name, MD Rafiq [address] [place] [address] [phone] Social History Tobacco Use Types Packs/Day Years [...] Description 02/11/2025 11:30 AM EDT Clinical Support [facility] [address] [place] [address] Krysta Huston RN 03/13/2025 10:30 AM EDT Office Visit [facility] [address] [place] [address] Name, MD Rafiq [address] [place] [address] documented as of this encounter Procedures Procedure [...] on filedocumented in this encounter Care Teams Radiology Ct Technologist Relationship Specialty Start Date End Date Name, MD Rafiq [address] [place] [address] PCP - General Family Medicine 12/16/15 documented as of this encounter
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
--- OUTSIDE RECORDS SUMMARY | 2024-12-25 19:45 | XMS_ITS | Clinical Summary ---
Author Organization [employer] [facility] Address [address] [place] [address] Care Team Providers Care Shop Technician Name Role Phone Name, Rafiq JENKINS Primary Care Provider [phone] Surgical History Surgery Date Site/Laterality Comments OTHER SURGICAL HISTORY PROCEDURE: ---- OTHER ----; COMMENT: cardiac cath ESOPHAGOGASTRODUODENOSCOPY 03/28/10 PROCEDURE: DC ESOPHAGOGASTRODUODENOSCOPY TRANSORAL DIAGNOSTIC; COMMENT: normal TONSILLECTOMY PROCEDURE: [...] age to complete this topic Care Teams Shop Technician Relationship Specialty Start Date End Date Name, MD Rafiq [address] [place], [place] PCP - General Internal Medicine 07/30/08
--- OUTSIDE RECORDS SUMMARY | 2024-12-25 19:45 | XMS_ITS | Encounter Summary ---
Author Organization [employer] [facility] Address [address] [place] [address] Care Team Providers Care Rag Inspector Name Role Phone Name, Rafiq JENIKNS Primary Care Provider Unavailoj e Rafiq Grace MD Primary Care Provider Unavailabl e Magdalena Coreas DISTRIBUTION DISTRICT SUPERVISOR Unavailable [phone] Mk Rolon MD Unavailable [phone] Encounter Details Date Type Department Care Team Description 08/12/2014 Hospital Medical Records [address] [place] [address] Violet Swanson MD Social History Tobacco Use Types Packs/Day Years Used Date Smoking Tobacco: Every Day Cigarettes 0.5 25 Smokeless Tobacco: Current Comments:1/2 to 1 ppd Alcohol Use Standard Drinks/Week Comments Yes 0 (1 standard drink = 0.6 oz pur e alcohol) socially Sex Assigned at Date Recorded Not on file documented as of this encounter Plan of Treatment Not on file documented as of this encounter Visit Diagnoses Not on filedocumented in this encounter Care Teams Rag Inspector Relationship Specialty Start Date End Date Rafiq Grace MD PCP - General 07/30/08 01/30/16 Rafiq Grace MD PCP - General Internal Medicine 01/31/16 Magdalena Coreas NP Cardiology 04/14/21 Mk Rolon MD [address] [place] [address] [address] [place] [address] Specialist Cardiovascular Disease 04/14/21 documented as of this encounter
--- OUTSIDE RECORDS SUMMARY | 2024-12-25 19:45 | XMS_ITS | Encounter Summary ---
Author Organization [employer] Address [address] [facility] [address] [place] [address] Care Team Providers Care Range Ecologist Name Role Phone Name, Rafiq JENKINS Primary Care Provider Reason for Visit * Reason Onset Date Comments Med Refill 06/12/2024 Encounter Details Date Type Department Care Team ([facility] st Contact Info) Description 06/12/2024 Telephone [facility] [address] [place], [place] [phone] Name, MD Rafiq [address] [place] [address] Med Refill Social History Tobacco Use Types [...] PM EDT Mass pat checked and meds. [facility] for approval. * Telephone Encounter - Rah Ferrer - 06/12/2024 9:30 AM EDT TC from pt requesting medication refill. Medications needing refill : oxyCODONE-acetaminophen (Percocet) 5-325 MG tablet To be sent to: [id number] [facility] documented in this encounter Plan of Treatment Upcoming Encounters Date Type Department Care Team (Late st Contact Info) Description 02/11/2025 11:30 AM EDT Clinical Support [facility] [address] [place] [address] Krysta Huston RN 03/13/2025 10:30 AM EDT Office Visit [facility] [address] [place] [address] Name, MD Rafiq [address] [place] [address] documented as of this encounter Visit Diagnoses Not on filedocumented in this encounter Additional Health Concerns Assessment Noted Time PHQ-9 Depression Total Score: 0 02/05/20 24 2:30 PM EDT documented as of this encounter Care Teams Range Ecologist Relationship Specialty Start Date End Date Name, MD Rafiq [address] [place] [address] PCP - General Family Medicine 12/16/15 documented as of this encounter
--- OUTSIDE RECORDS SUMMARY | 2024-12-25 19:45 | XMS_ITS | Encounter Summary ---
Author Organization [facility] Address [address] [place] [address] Care Team Providers Care Ic Designer Gate Arrays Name Role Phone Name, Rafiq JENKINS Primary Care Provider Unavailoj e Rafiq Grace MD Primary Care Provider Unavailabl e Magdalena Coreas ROBOTIC MACHINE OPERATOR Unavailable [phone] Mk Rolon MD Unavailable [phone] Encounter Details Date Type Department Care Team Description 09/30/2010 Hospital Medical Records [address] [place] [address] Dayron Herrera MD Social History Tobacco Use Types Packs/Day [...] on filedocumented in this encounter Care Teams Ic Designer Gate Arrays Relationship Specialty Start Date End Date Rafiq Grace MD PCP - General 07/30/08 01/30/16 Rafiq Grace MD PCP - General Internal Medicine 01/31/16 Magdalena Coreas NP Cardiology 04/14/21 Mk Rolon MD [address] [place] [address] [address] [place] [address] Specialist Cardiovascular Disease 04/14/21 documented as of this encounter
--- OUTSIDE RECORDS SUMMARY | 2024-12-25 19:45 | XMS_ITS | Encounter Summary ---
Author Organization [employer] Address [address] [facility] 7t [place] [address] Care Team Providers Care Aircraft Life Support Fitter Name Role Phone Name, Rafiq JENKINS Primary Care Provider [phone] Reason for Visit * Reason Onset Date Comments Recommend MARK UP DESIGNER Tier 2 12/17/2024 Encounter Details Date Type Department Care Team ([facility] st Contact Info) Description 12/17/2024 Telephone [facility] [address] [place], [place] [phone] Krysta Huston, LUCAS Recommend MARK UP DESIGNER Tier 2 Social History Tobacco Use Types [...] RN - 12/17/2024 7:36 AM EST What MARK UP DESIGNER Tier would you like this patient to be? I recommend Tier 2, please let me know if you agree or would rather patient be in another MARK UP DESIGNER Tier. Tier 1 = HIGH RISK, Monthly MARK UP DESIGNER visits Tier 2 = MODerate RISK, Q3 Month visits Tier 3 = LOW RISK = Q4-6 month visits documented in this encounter Plan of Treatment Upcoming Encounters Date Type Department Care Team (Late st Contact Info) Description 02/11/2025 11:30 AM EDT Clinical Support [facility] [address] [place] [address] Krysta Huston RN 03/13/2025 10:30 AM EDT Office Visit [facility] [address] [place] [address] NameRafiq MD [address] [place] [address] documented as of this encounter Visit Diagnoses Not on filedocumented in this encounter Additional Health Concerns Assessment Noted Time PHQ-9 Depression Total Score: 0 02/05/20 24 2:30 PM EDT documented as of this encounter Care Teams Aircraft Life Support Fitter Relationship Specialty Start Date End Date Rafiq Grace MD [address] [place] [address] PCP - General Family Medicine 12/16/15 documented as of this encounter
--- OUTSIDE RECORDS SUMMARY | 2024-12-25 19:45 | XMS_ITS | Encounter Summary ---
Author Organization [facility] Address [address] [place] [address] Care Team Providers Care Oenologist Name Role Phone Name, Rafiq JENKINS Primary Care Provider Unavailabl e Rafiq Grace MD Primary Care Provider Unavailabl e Magdalena Coreas NP Unavailable Mk Rolon MD Unavailable [phone] Reason for Visit * Reason Onset Date Comments medication problems 08/09/2012 Encounter Details Date Type Department Care Team Description 08/09/2012 Telephone Adult Medicine [address] [address] Name, MD Rafiq medication problems Social History Tobacco Use Types Packs/Day Years Used Date Smoking Tobacco: Every Day Cigarettes 1 25 Comments:has started smoking again 4-6 cigarettes a day Alcohol Use Standard Drinks/Week Comments No 0 (1 standard drink = 0.6 oz pur e alcohol) Sex Assigned at Date Recorded Not on file documented as of this encounter Miscellaneous Notes * Telephone Encounter - Iliana Hawkins L.P.N. - 08/12/2012 12:32 PM EDT Prior authorization form was filled out and faxed to [facility]. * Telephone Encounter - Lety Reeder M.A. - 08/12/2012 12:15 PM EDT This was given by Dr Rose, it is on hold due to the need for a prior auth. * Telephone Encounter - Kirstin Garcia - 08/09/2012 3:37 PM EDT What is the name of the medication patient is having a problem with?: Lyrica 75 mg What is the problem?: Pt states pharmacy did not receive this, please refax Is the patient calling about the problem? YES If the patient is not the caller who is? Is this a NEW medication?: yes How long has the patient been taking this medication? Not taken as yet Who prescribed this medication for the patient? Dr Olivier Rose Who is patients PCP?: Rafiq Grace MD Payor: [employer] FFS Plan: FFS HMO $0 vSocial [id number] Product Type: MEDICAID RISK Pt is not sure he feels there maybe a problem with the medication, he asks that pharmacy is called to explain more fully. documented in this encounter Plan of Treatment Not on file documented as of this encounter Visit Diagnoses Not on filedocumented in this encounter Care Teams Oenologist Relationship Specialty Start Date End Date Rafiq Grace MD PCP - General 07/30/08 01/30/16 Rafiq Grace MD PCP - General Internal Medicine 01/31/16 Magdalena Coreas NP Cardiology 04/14/21 Mk Rolon MD [address] [place] [address] [address] [place] [address] Specialist Cardiovascular Disease 04/14/21 documented as of this encounter
--- OUTSIDE RECORDS SUMMARY | 2024-12-25 19:45 | XMS_ITS | Encounter Summary ---
Author Organization [employer] [facility] Address [address] [facility] 7t [place] [address] Care Team Providers Care Maintenance Worker House Trailer Name Role Phone Name, Rafiq JENKINS Primary Care Provider [phone] Reason for Visit * Reason Comments VAN OWNER OPERATOR RV VAN OWNER OPERATOR RV Encounter Details Date Type Department Care Team (Latest Contact Info) Description 12/17/2024 11:30 AM EST Clinical Support [facility] [address] [place] [address] Krysta Huston RN Chronic pain syndrome (Primary [...] 11:30 AM EST S: Pt here for VAN OWNER OPERATOR Revisit. Prescribed Percocet 5mg Q6hr PRN. States [...] Pt currently prescribed Percocet 5mg Q6hr PRN. GASSER MACHINE OPERATOR verified today. Rx last filled on12/06/24. Pill [...] medication. Last PCP visit was 10/15/24. A: VAN OWNER OPERATOR Contract Revisit: Chronic Opioid use related to pain. P: Pt to continue taking medication only as prescribed; Next VAN OWNER OPERATOR Renewal appointment scheduled for 02/11/25 @ 11:30am, F/U sooner PRN. Appointment reminder given. Pt verbalized understanding and agreed to plan. documented in this encounter Plan of Treatment Upcoming Encounters Date Type Department Care Team (Late st Contact Info) Description 02/11/2025 11:30 AM EDT Clinical Support [address] [address] Krysta Huston RN 03/13/2025 10:30 AM EDT Office Visit [address] [address] Rafiq Grace MD [address] [place] [address] documented as of this encounter Procedures Procedure [...] - 12/17/2024 11:37 AM EST UTOX cup Lot#[id number] Exp. 08/20/26 Internal Pass Control Rafiq Grace MD POINT OF CARE TEST ENTER/EDIT OR DERABLES Final Result documented in this encounter Visit Diagnoses Diagnosis Chronic pain syndrome- Primary documented in this encounter Additional Health Concerns Assessment Noted Time PHQ-9 Depression Total Score: 0 02/05/20 24 2:30 PM EDT documented as of this encounter Care Teams Maintenance Worker House Trailer Relationship Specialty Start Date End Date Rafiq Grace, MD [address] [place] [address] PCP - General Family Medicine 12/16/15 documented as of this encounter
--- OUTSIDE RECORDS SUMMARY | 2024-12-25 19:45 | XMS_ITS | Encounter Summary ---
Author Organization [employer] [facility] Address [address] [place] [address] Care Team Providers Care Hydrodynamics Teacher Name Role Phone Name, Rafiq JENKINS Primary Care Provider Unavailoj e Rafiq Grace MD Primary Care Provider Unavailabl e Magdalena Coreas TRAILER TECHNICIAN Unavailable [phone] Mk Rolon MD Unavailable [phone] Encounter Details Date Type Department Care Team Description 10/01/2010 Hospital Medical Records [address] [place] [address] Alex Be MD Social History Tobacco Use Types Packs/Day [...] on filedocumented in this encounter Care Teams Hydrodynamics Teacher Relationship Specialty Start Date End Date Rafqi Graec MD PCP - General 07/30/08 01/30/16 Rafiq Grace MD PCP - General Internal Medicine 01/31/16 Magdalena Coreas NP Cardiology 04/14/21 Mk Rolon MD [address] [place] [address] [address] [place] [address] Specialist Cardiovascular Disease 04/14/21 documented as of this encounter
--- OUTSIDE RECORDS SUMMARY | 2024-12-25 19:45 | XMS_ITS | Encounter Summary ---
Author Organization [employer] [facility] Address [address] [facility] 7t [place] [address] Care Team Providers Care Grill Attendant Name Role Phone Name, Rafiq JENKINS Primary Care Provider [phone] Encounter Details Date Type Department Care Team (Late Contact Info) Description 12/29/2022 Abstract [facility] [address] [place] [address] Dario Lynch DDS [address] [place], [place] [phone] Social History Tobacco Use Types Packs/Day Years [...] Description 02/11/2025 11:30 AM EDT Clinical Support [facility] [address] [place] [address] Krysta Huston RN 03/13/2025 10:30 AM EDT Office Visit [facility] [address] [place] [address] Name, MD Rafiq [address] [place] [address] documented as of this encounter Visit Diagnoses Not on filedocumented in this encounter Care Teams Grill Attendant Relationship Specialty Start Date End Date Name, MD Rafiq [address] [place] [address] PCP - General Family Medicine 12/16/15 documented as of this encounter
--- OUTSIDE RECORDS SUMMARY | 2024-12-25 19:45 | XMS_ITS | Encounter Summary ---
Author Organization [employer] Address [address] [facility] 7t [place] [address] Care Team Providers Care Firer Tunnel Kiln Name Role Phone Name, Rafiq JENKINS Primary Care Provider [phone] Reason for Visit * Reason Onset Date Comments CALLBACK REQUESTED 11/18/2024 Encounter Details Date Type Department Care Team ([facility] st Contact Info) Description 11/18/2024 Telephone [facility] [address] [place], [place] [phone] Name, MD Rafiq [address] [place] [address] CALLBACK REQUESTED Social History Tobacco Use Types [...] to administer their Praulent injection.mPt informed to black pickler their medication form the pharmacy and to [...] requesting a callback pt was advised to black pickler medication in pharmacy, pt verbalize he will go pick it up and will scheduled his appointment so they could teach him how to administer medication. * Telephone Encounter - Elizabeth Edge RN - 11/27/2024 9:36 AM EST Tc to pt via [facility] hr recruiter id: [id number] to advise them to black pickler their Praluent medication at [facility] and schedule a nurse visit to educate them on how to administer the medication to themselves. Pt answered at the first ring, when inter began to introduce themselves, pt disconnected the call. Step Finisher called again, pt answered but diud not say anything then call was disconnected again. * Telephone Encounter - Elizabeth Edge RN - 11/20/2024 1:06 PM EST Tc to [facility] regarding if pt picked up their Praluent medication. They report pt did not and informed them that PA was approved and scanned under media. Tc to pt to schedule nurse visit to teach pt how to administer the Praluent medication to themself and inform them medications ready for black pickler. Someone answered the phone and when hr recruiter to speak no one replied then call was disconnected. Will call again on Sunday and message re tasked to blue team nurse box. * Telephone Encounter - Solitario Elaine - 11/18/2024 11:15 AM EST Tc from pt stating someone called him but he doesn't have the name and the nurse who called him NEVER PLACED A MESSAGE. Pt requests a callback. [phone] documented in this encounter Plan of Treatment Upcoming Encounters Date Type Department Care Team (Late st Contact Info) Description 02/11/2025 11:30 AM EDT Clinical Support [facility] [address] [place] [address] Krysta Huston RN 03/13/2025 10:30 AM EDT Office Visit [facility] [address] [place] [address] Name, MD Rafiq [address] [place] [address] documented as of this encounter Visit Diagnoses Not on filedocumented in this encounter Additional Health Concerns Assessment Noted Time PHQ-9 Depression Total Score: 0 02/05/20 24 2:30 PM EDT documented as of this encounter Care Teams Firer Tunnel Kiln Relationship Specialty Start Date End Date Name, MD Rafiq [address] [place] [address] PCP - General Family Medicine 12/16/15 documented as of this encounter
--- OUTSIDE RECORDS SUMMARY | 2024-12-25 19:45 | XMS_ITS | Encounter Summary ---
Author Organization [employer] Address [address] [facility] 7t [place] [address] Care Team Providers Care Elementary Special Education Teacher Name Role Phone Name, Rafiq JENKINS Primary Care Provider [phone] Encounter Details Date Type Department Care Team [...] Description 02/11/2025 11:30 AM EDT Clinical Support [facility] MEDICINE [address] [place] [address] Krysta Huston RN 03/13/2025 10:30 AM EDT Office Visit [facility] MEDICINE [address] [place] [address] Name, MD Rafiq [address] [place] [address] documented as of this encounter Visit Diagnoses Not on filedocumented in this encounter Additional Health Concerns Assessment Noted Time PHQ-9 Depression Total Score: 0 02/05/20 24 2:30 PM EDT documented as of this encounter Care Teams Elementary Special Education Teacher Relationship Specialty Start Date End Date Name, MD Rafiq [address] [place] [address] PCP - General Family Medicine 12/16/15 documented as of this encounter
--- OUTSIDE RECORDS SUMMARY | 2024-12-25 19:45 | XMS_ITS | Encounter Summary ---
Author Organization [employer] [facility] Address [address] [place] [address] Care Team Providers Care Durable Medical Equipment Repairer Name Role Phone Name, Rafiq JENKINS Primary Care Provider Unavailoj e Rafiq Grace MD Primary Care Provider Unavailabl e Magdalena Coreas GLOBAL ACCOUNT MANAGER Unavailable [phone] Mk Rolon MD Unavailable [phone] Encounter Details Date Type Department Care Team Description 02/18/2013 Commodity Director Report Medical Records 4 [place] [address] Heather Renner MD Social History Tobacco Use Types Packs/Day [...] on filedocumented in this encounter Care Teams Durable Medical Equipment Repairer Relationship Specialty Start Date End Date Rafiq Grace MD PCP - General 07/30/08 01/30/16 Rafiq Grace MD PCP - General Internal Medicine 01/31/16 Magdalena Coreas NP Cardiology 04/14/21 Mk Rolon MD [address] [place] [address] [address] [place] [address] Specialist Cardiovascular Disease 04/14/21 documented as of this encounter
--- OUTSIDE RECORDS SUMMARY | 2024-12-25 19:45 | XMS_ITS | Encounter Summary ---
Author Organization [employer] [facility] Address [address] [place] [address] Care Team Providers Care Visual Merchandising Associate Name Role Phone Name, Rafiq JENKINS Primary Care Provider Unavailoj e Rafiq Grace MD Primary Care Provider Unavailabl e Magdalena Coreas COMPENSATION AND BENEFITS ADMINISTRATOR Unavailable [phone] Mk Rolon MD Unavailable [phone] Encounter Details Date Type Department Care Team Description 03/13/2012 Promotions Manager Report Medical Records 4 [place] [address] Keny Rodriguez MD Social History Tobacco Use Types Packs/Day Years Used Date Smoking Tobacco: Every Day Cigarettes 1.5 25 Comments:has started smoking again 4-6 cigarettes a day Alcohol Use Standard Drinks/Week Comments No 0 (1 standard drink = 0.6 oz pur e alcohol) Sex Assigned at Date Recorded Not on file documented as of this encounter Plan of Treatment Not on file documented as of this encounter Visit Diagnoses Not on filedocumented in this encounter Care Teams Visual Merchandising Associate Relationship Specialty Start Date End Date Rafiq Grace MD PCP - General 07/30/08 01/30/16 Rafiq Grace MD PCP - General Internal Medicine 01/31/16 Magdalena Coreas NP Cardiology 04/14/21 Mk Rolon MD [address] [place] [address] [address] [place] [address] Specialist Cardiovascular Disease 04/14/21 documented as of this encounter
--- OUTSIDE RECORDS SUMMARY | 2024-12-25 19:45 | XMS_ITS | Encounter Summary ---
Author Organization [employer] Address [address] 7[address] [place] [address] Care Team Providers Care Lead Auditor Name Role Phone Name, Rafiq JENKINS Primary Care Provider [phone] Encounter Details Date Type Department Care Team ([facility] st Contact Info) Description 01/15/2024 Telephone [facility] MEDICINE [address] [place], [place] [phone] Name, MD Rafiq [address] [place] [address] Social History Tobacco Use Types Packs/Day Years [...] t he electric, gas, oil or water [employer] threatened to shut off services in your [...] Alcaraz RN - 01/16/2024 11:46 AM EST [facility] surgical notes re: excision of lipoma on posterior neck sent to medical records. * Telephone Encounter - Rah Ferrer - 01/15/2024 10:28 AM EST Tc from patient calling to inform the PCP the patient had a procedure done on the neck on 01/15 at [facility] for skin lumps and was done by was the doctor who preformed the procedure documented in this encounter Plan of Treatment Upcoming Encounters Date Type Department Care Team (Late st Contact Info) Description 02/11/2025 11:30 AM EDT Clinical Support [address] [address] Krysta Huston RN 03/13/2025 10:30 AM EDT Office Visit [facility] MEDICINE [address] [place] [address] Name, MD Rafiq [address] [place] [address] documented as of this encounter Visit Diagnoses Not on filedocumented in this encounter Care Teams Lead Auditor Relationship Specialty Start Date End Date Name, MD Rafiq [address] [place] [address] PCP - General Family Medicine 12/16/15 documented as of this encounter
--- OUTSIDE RECORDS SUMMARY | 2024-12-25 19:45 | XMS_ITS | Encounter Summary ---
Author Organization [facility] Address [address] [place] [address] Care Team Providers Care Projection Technician Name Role Phone Name, Rafiq JENKINS Primary Care Provider Unavailabl e Name, Rafiq JENKINS Primary Care Provider Unavailabl e Magdalena Coreas NP Unavailable [phone] Mk Rolon MD Unavailable [phone] Reason for Visit * Reason Onset Date Comments Provider Call Back 09/20/2012 Encounter Details Date Type Department Care Team Description 09/20/2012 Telephone Physiatry - [address] [address] Olivier Rose DO Provider Call Back Social History Tobacco Use Types Packs/Day Years Used Date Smoking Tobacco: Every Day Cigarettes 1 25 Comments:has started smoking again 4-6 cigarettes a day Alcohol Use Standard Drinks/Week Comments No 0 (1 standard drink = 0.6 oz pur e alcohol) Sex Assigned at Date Recorded Not on file documented as of this encounter Miscellaneous Notes * Telephone Encounter - Iliana Hawkins L.P.N. - 09/20/2012 1:41 PM EDT Tried to call patient to let him know dr rose increased dose of lyrica phone states unable to leave message at this time. * Telephone Encounter - Olivier Rose - 09/20/2012 1:39 PM EDT I forwarded prescription for Lyrica 150 mg BID to the pharmacy. * Telephone Encounter - Iliana Hawkins L.P.N. - 09/20/2012 1:35 PM EDT Sent to dr rose to review ? Increasing lyrica as per office note on 08/05/12. * Telephone Encounter - Anny Alva - 09/20/2012 1:02 PM EDT Pt states he did see Dr. Rose in 08/05/2012 and was given Lyrica and pt states this is no help. Ptstates he is still having problems with pain in back, neck, knee and unable to make fist with his hands. Pt would like to know what to do. Please adivse. documented in this encounter Plan of Treatment Not on file documented as of this encounter Visit Diagnoses Not on filedocumented in this encounter Care Teams Projection Technician Relationship Specialty Start Date End Date Name, MD Rafiq PCP - General 07/30/08 01/30/16 Name, MD Rafiq PCP - General Internal Medicine 01/31/16 Magdalena Coreas NP Cardiology 04/14/21 Mk Rolon MD [address] [place] [address] [address] [place] [address] Specialist Cardiovascular Disease 04/14/21 documented as of this encounter
--- OUTSIDE RECORDS SUMMARY | 2024-12-25 19:45 | XMS_ITS | Encounter Summary ---
Author Organization [facility] Address [address] [place] [address] Care Team Providers Care Wood Drilling Machine Operator Name Role Phone Name, Rafiq JENKINS Primary Care Provider Unavailabl e Rafiq Grace MD Primary Care Provider Unavailabl e Magdalena Coreas NP Unavailable [phone] Mk Rolon MD Unavailable [phone] Reason for Visit * Reason Onset Date Comments refill request 11/20/2013 Encounter Details Date Type Department Care Team Description 11/20/2013 Refill Adult Medicine [address] [address] Name, MD Rafiq refill request Social History Tobacco Use Types Packs/Day Years Used Date Smoking Tobacco: Every Day Cigarettes 1 25 Smokeless Tobacco: Never Comments:has started smoking again 4-6 cigarettes a day Alcohol Use Standard Drinks/Week Comments No 0 (1 standard drink = 0.6 oz pur e alcohol) Sex Assigned at Date Recorded Not on file documented as of this encounter Miscellaneous Notes * Telephone Encounter - Kary Martinez M.A. - 11/20/2013 1:41 PM EST Component Value Date CHOL 221 11/12/2013 LDL 155 11/12/2013 HDL 28 11/12/2013 TRIG 194 11/12/2013 SGOT 28 11/12/2013 SGPT 40 11/12/2013 Last ov with pcp 11/07/13 * Telephone Encounter - Bisi Truong - 11/20/2013 1:24 PM EST Patient would like script to be: E-PRESCRIBED/FAXED TO PHARMACY WHEN WAS THE PATIENT'S LAST APPOINTMENT IN ADULT MEDICINE? 11/07/13 WHEN WAS THE LAST TIME THE PATIENT SAW THEIR PCP? Same as above Does patient have an upcoming appointment? No-patient refused appointment, will call back to book appointment (THE MEDICATION REQUESTED IS ON THE MED LIST ABOVE) All of the medications requested were on the CURRENT MEDS list Did you check the Pharmacy information above?: YES Patient wants: 30 -day supply Is this a mail order prescription request ? NO Patients current insurance carrier is: Payor: [employer] FFS Plan: FFS HMO $0 [employer] [id number] Product Type: MEDICAID RISK documented in this encounter Plan of Treatment Not on file documented as of this encounter Visit Diagnoses Not on filedocumented in this encounter Care Teams Wood Drilling Machine Operator Relationship Specialty Start Date End Date Rafiq Grace MD PCP - General 07/30/08 01/30/16 Lesly, MD Rafiq PCP - General Internal Medicine 01/31/16 Magdalena Coreas NP Cardiology 04/14/21 Mk Rolon MD [address] [place] [address] [place] [address] Specialist Cardiovascular Disease 04/14/21 documented as of this encounter
--- OUTSIDE RECORDS SUMMARY | 2024-12-25 19:45 | XMS_ITS | Clinical Summary ---
Author Organization [employer] Address [address] [place] [address] 7t [place] [address] Care Team Providers Care Aircraft General Repair Mechanic Name Role Phone Name, Rafiq JENKINS Primary Care Provider [phone] Allergies Active Allergy Reactions Criticality Noted Date Comments Ibuprofen 07/21/2015 Bleeding from bladder Naproxen 01/17/2016 Medications clopidogrel (Plavix) 75 MG tablet Take 1 tablet by mouth Once daily. 07/14/20 22 Active Diclofenac Sodium 1 % gel APPLY 2 GRAMS TO AFFECTED AREA TWICE A DAY 08/28/20 22 Active ergocalciferol (Vitamin D-2) 1.25 MG (70385 UT) capsule Take 1 capsule by mouth [...] each 11 09/04/20 23 Active Multiple Vitamin (Daily-Mdadi Multivitamin) tablet TAKE 1 TABLET BY MOUTH [...] MG EC tabletIndicatio ns:Coronary artery disease involving [place] coronary artery of [place] heart without angina pectoris TAKE 1 TABLET [...] disease) 12/01/2016 Overview (02/06/2024): He follows at [facility]. Cardiac catheterization was in January 2021 when [...] Description 12/17/2024 11:30 AM EST Clinical Support [facility] MEDICINE [address] [place] [address] Krysta Huston RN Chronic pain syndrome (Primary Dx) 12/17/2024 Travel 12/17/2024 Telephone [facility] MEDICINE [address] [place] [address] Krysta Huston, LUCAS Recommend SPOOL FIXER Tier 2 12/05/2024 Refill [facility] MEDICINE [address] [facility] [place] [address] Rafiq Grace MD Mild intermittent asthma, unspecified whether complicated 12/05/2024 Refill [facility] MEDICINE [address] [facility] [address] Rafiq Grace MD Chronic low back pain, unspecified back pain laterality, unspecified whether sciatica present 12/04/2024 Telephone [facility] MEDICINE [address] [facility] [place] [address] Rafiq Grace MD No Show 11/18/2024 Telephone C MEDICINE [address] [facility] [place] [address] Rafiq Grace MD CALLBACK REQUESTED 11/18/2024 Telephone [facility] MEDICINE [facility] [place] [address] Rafiq Grace MD FMLA (I called the patient regarding an application for FMLA, from [employer]. I reached his voicemail, and left a message asking him to return my call at ext 2022.) 11/05/2024 Refill [facility] MEDICINE [facility] [place] [address] Rafiq Grace MD Coronary artery disease involving [place] coronary artery of [place] heart without angina pectoris 11/05/2024 Refill [facility] [place] [address] Rafiq Grace MD Chronic low back pain, unspecified back pain laterality, unspecified whether sciatica present 10/29/2024 Telephone [facility] MEDICINE [address] [place] [address] Mariely Perez [place] Approval notification 10/28/2024 Telephone [facility] MEDICINE [address] [place] [address] Elizabeth Edge, LUCAS 10/21/2024 Telephone [facility] MEDICINE [address] [place] [address] Qing Alcaraz RN 10/17/2024 Telephone [facility] MEDICINE [address] [place] [address] Rafiq Grace MD Letter for School/Work 10/17/2024 Orders Only [facility] [place] [address] NameRafiq MD 10/17/2024 Orders Only [facility] External Provider, [facility] 10/17/2024 Telephone [facility] [place] [address] Elizabeth Edge RN 10/15/2024 3:45 PM EST Office Visit [facility] [place] [address] NameRafiq MD Coronary artery disease involving [place] coronary artery of [place] heart with unstable angina pectoris (CMS/HCC) (Primary Dx); Other emphysema (CMS/HCC); Bilateral carpal tunnel syndrome; Chronic bilateral low back pain with left-sided sciatica 10/15/2024 Travel 10/13/2024 Telephone [facility] [place] [address] Monique Bal MA Chart Prep 10/07/2024 Refill [facility] [place] [address] NameRafiq MD Chronic low back pain, unspecified back pain laterality, unspecified whether sciatica present 09/29/2024 Orders Only [facility] External Provider, [facility] 09/24/2024 9:30 AM EDT Clinical Support [facility] [place] [address] Krysta Huston, design director pain syndrome (Primary Dx) 09/24/2024 Telephone [facility] [place] [address] Krysta Huston, RN percocet count discrepancy 09/24/2024 Travel from Last 3 Months Immunizations Name Administration Dates Next Due HepB-CpG 05/15/2023,04/11/2023 Influenza injectable quadriv alent IIV4 with preservative 11/14/2019,08/28/2016 Influenza injectable quadriv alent preservative free 09/05/2023,08/18/2022,09/03/2017 Influenza, IIV3, injectable 09/10/2015,1 ,08/12/2013,08/20,11/02/2011,04/09/2010,09/07/2008 Influenza, seasonal, injecta ble, preservative free 08/11/2024 Novel [id number], preservative-free 01/26/2010 Pneumococcal Conjugate PCV 20 04/11/2023 [...] Description 02/11/2025 11:30 AM EDT Clinical Support [facility] MEDICINE [address] [place] [address] Krysta Huston RN 03/13/2025 10:30 AM EDT Office Visit [address] [address] Name, MD Rafiq [address] [place] [address] Health Maintenance Due Date Last Done Comments [...] - 1-dose 75+ series) 2042 Pneumococcal Vaccine: 50+ Years Completed 04/11/2023, 03/23/2014 Pneumococcal Vaccine: Pediatrics (0 to 5 Years) and At-Risk Patients (6 to 49) Years) Completed 04/11/2023, 03/23/2014 Hepatitis B Vaccines [...] 10:27 AM EST Coronary artery disease involving [place] coronary artery of [place] heart with unstable angina pectoris (CMS/HCC) XR [...] - 12/17/2024 11:37 AM EST [employer] cup Lot#[id number] Exp. 08/20/26 Internal Pass Control us Rafiq Name MD POINT OF CARE TEST ENTER/EDIT OR DERABLES Final Result * FL Esophagus Barium Swallow w/Air (11/27/2024 8:00 AM EST) Anatomical Region Laterality Modality Head, Neck Radiographic Nova ging 11/27/2024 8:00 AM EST Narrative 11/27/2024 4:09 PM EST ? [facility] ?[address] ?[place] [address] ? Fluoroscopy Report ? Signed ? Patient: Deidre Colon,Trenton ?MR#: M ?? [id number] ? : 1965 ?Acct:[id number] ? Age/Sex: 59 / M ?ADM Date: 11/27/24 ? Loc: HO.XRAY ? Attending Dr: Rafiq Grace MD ? Ordering Physician: Rafiq Grace MD ?? Date of Service: 11/27/24 ?? Procedure(s): FL barium swallow with air ?? Accession Number(s): [id number] ? cc: Rafiq Grace MD ? EXAMINATION: [...] ? 11/27/24 1607 ?<Electronically signed by Omar Roesn MD in OV> ? 11/27/24 1609 ? DD/ 0800 ? TD/TT: 11/27/24 0825 ? [employer]: ? Procedure Note Navid, Halima - 11/27/[address] [address] Fluoroscopy Report Signed Patient: Erick Bejarano#: M [id number] : 1965Acct:[id number] Age/Sex: 59 / MADM Date: 11/27/24 Loc: HO.XRAY Attending Dr: Rafiq Grace MD Ordering Physician: Rafiq Grace MD Date of Service: 11/27/24 Procedure(s): FL barium swallow with air Accession Number(s): [id number] cc: Rafiq Grace MD EXAMINATION: XR FLUOROSCOPY [...] 11/27/24 1609 DD/ 0800 TD/TT: 11/27/24 0825 [employer]: us Rafiq Name IMG FLUOROSCOPY PROCEDURES Edite d Result - Final * XR Chest 2 Views (10/17/2024 3:06 PM EST) Anatomical Region Laterality Modality Chest Radiographic Nova ging 10/17/2024 3:06 PM EST Narrative 10/17/2024 3:47 PM EST ? [facility] ?[address] ?[place] [address] ?XRay Report ? Signed ? Patient: Deidre Colon,Trenton ?MR#: M ?? [id number] ? : 1965 ?Acct:[id number] ? Age/Sex: 59 / M ?ADM Date: 10/17/24 ? Loc: HO.XRAY ? Attending Dr: Kylah Calderon MD ? Ordering Physician: Kylah Calderon MD ?? Date of Service: 10/17/24 ?? Procedure(s): XR chest 2V ?? Accession Number(s): [id number] ? cc: Rafiq Grace MD; Kylah Calderon [...] DD/ 1506 ? TD/TT: 10/17/24 1520 ? [employer]: ? Procedure Note Donotuseinterpreter, Image - 10/17/[address] [address] XRay Report Signed Patient: Erick Bejarano#: M [id number] : 1965Acct:[id number] Age/Sex: 59 / MADM Date: 10/17/24 Loc: HO.XRAY Attending Dr: Kylah Calderon MD Ordering Physician: Kylah Calderon MD Date of Service: 10/17/24 Procedure(s): XR chest 2V Accession Number(s): [id number] cc: Rafiq Grace MD; Kylah Calderon MD EXAMINATION: XR CHEST CLINICAL [...] 10/17/24 1542 DD/ 1506 TD/TT: 10/17/24 1520 [employer]: [facility] External Provider IMG XR PROCEDURES Final Result * (ABNORMAL) Lipid Panel, Standard (10/17/2024 10:27 AM EST) Triglycerides 164(H) <150 mg/dL [facility] Comment:Desirable Triglyceri de: less than 150 mg/dLBorderline High Triglyceride 150-199 mg/dLHigh Triglyceride: 200-499 mg/dLVery High Triglyceride: greater than or equal to 5OO mg/dL Cholesterol 214(H) <200 mg/dL [facility] Comment:Desirable Cholestero l: less than 200 mg/dLBorderline High Cholesterol: 200-239 mg/dLHigh Cholesterol: greater than 239 mg/dL LDL Cholesterol Calculated 151(H) <100 mg/dL [facility] Comment:Desirable LDL: less than 100 mg/dLNear Optimal/Above Optimal LDL: 110- 129 mg/dLBorderline High LDL: 130-159 mg/dLHigh LDL: 160-189 mg/dLVery High LDL: greater than or equal to 190 mg/dL HDL Cholesterol 31(L) >40 mg/dL [facility] Comment:Desirable HDL: great er than 40 mg/dL Note: This HDL assay may give artificially low results in patients with liver disease. Blood Venous blood specimen / Unknown 10/17/2024 10:27 AM EST 10/17/2024 11:05 AM EST us Rafiq Name MD LAB BLOOD ORDERABLES Final Resul t [facility] [address] [place] [phone] * XR Knee 3 Views Left (09/29/2024 10:36 AM EST) Anatomical Region Laterality Modality Lower Extremities, Knee Left Radiogra phic Imaging 09/29/2024 10:3 6 AM EST Narrative 11/17/2024 7:33 AM EST ? [facility] ?[address] ?[place] [address] ?XRay Report ? Signed ? Patient: Deidre Colon,Trenton ?MR#: M ?? [id number] ? : 1965 ?Acct:[id number] ? Age/Sex: 59 / M ?ADM Date: 11/04/24 ? Loc: HO.XRAY ? Attending Dr: Kristan PETTY ? Ordering Physician: Kristan Oconnell ?? Date of Service: 09/29/24 ?? Procedure(s): XR knee LT 3V ?? Accession Number(s): [id number] ? cc: Kristan Oconnell; Name,Rafiq JENKINS ? [...] DD/ 1036 ? TD/TT: 09/29/24 1103 ? [employer]: WG ? Procedure Note Navid, Image - 11/17/2024 [place] [address] XRay Report Signed Patient: Erick Bejarano#: M [id number] : 1965Acct:[id number] Age/Sex: 59 / MADM Date: 09/29/24 Loc: MUSA Attending Dr: Kristan PETTY Ordering Physician: Kristan Oconnell Date of Service: 09/29/24 Procedure(s): XR knee LT 3V Accession Number(s): [id number] cc: Kristan Oconnell; Name,Rafiq JENKINS EXAMINATION: XR [...] 11/17/24 0730 DD/ 1036 TD/TT: 09/29/24 1103 [employer]: FELICIA [facility] External Provider IMG XR PROCEDURES Final Result * Hepatitis C Ab (02/06/2024 12:22 PM EDT) Hepatitis C Antibody Nonreactive Nonreactive [facility] Comment:Antibodies to HCV no t detected; does not exclude early acuteHCV infection. Blood Venous blood specimen / Unknown 02/06/2024 12:22 PM EDT 02/06/2024 1:11 PM EDT Rafiq Grace MD LAB BLOOD ORDERABLES Final Resul t [facility] [address] [place] [address] [phone] * POCT HGB A1C (12/03/2023 4:16 PM EST) Pathologist [facility] Hemoglobin A1C 5.6 4.0 - 6.0 % Other 12/03/2023 4:16 PM EST Rafiq Grace MD POINT OF CARE TEST ENTER/EDIT OR DERABLES Final Result * (ABNORMAL) Lung Cancer Screning (07/03/2023) Lung CT LUNGRADS 0(A) LUNGRADS 1, LUNGRADS 2 Anatomical Region Laterality Modality Other Lisa Middleton HEALTH MAINTENANCE Final Resul t * Colonoscopy (12/24/2020 12:59 PM EST) Pathologist [facility] Colonoscopy Normal Normal Narrative Danielle Orellana - 12/24/2020 12:59 PM EST Recommended 5 year follow up us Historical Provider HEALTH MAINTENANCE Final Result from Last 3 Months or Most Recently Relevant to Health Maintenance Insurance [address] [place] [address] [place] [id number] D[facility]AL-[facility] MEDICAID STAND ADULT DENTAL - HSN FULL (MEDICAID) DENTAL - [employer] DENTAL St [address] [place] [address] [phone] [place] [address] [id number] [place] [phone] Care Teams Aircraft General Repair Mechanic Relationship Specialty Start Date End Date Name, MD Rafiq [address] [place] [address] PCP - General Family Medicine 12/16/15
--- OUTSIDE RECORDS SUMMARY | 2024-12-25 19:45 | XMS_ITS | Encounter Summary ---
Author Organization [employer] [facility] Address [address] [place] [address] 7t [place] [address] Care Team Providers Care Blow Pit Helper Name Role Phone Name, Rafiq JENKINS Primary Care Provider [phone] Reason for Visit * Reason Comments Med Refill Encounter Details Date Type Department Care Team (Late Contact Info) Description 06/07/2023 Refill [facility] [address] [place], [place] [phone] Name, MD Rafiq [address] [place] [address] Tobacco use disorder, continuous Social History Tobacco [...] Description 02/11/2025 11:30 AM EDT Clinical Support [address] [address] Krysta Huston, RN 03/13/2025 10:30 AM EDT Office Visit [address] [address] Name, MD Rafiq [address] [place] [address] documented as of this encounter Visit Diagnoses Diagnosis Tobacco use disorder, continuous Tobacco use disorder documented in this encounter Care Teams Blow Pit Helper Relationship Specialty Start Date End Date Name, MD Rafiq [address] [place] [address] PCP - General Family Medicine 12/16/15 documented as of this encounter
--- OUTSIDE RECORDS SUMMARY | 2024-12-25 19:46 | XMS_ITS | Encounter Summary ---
Author Organization [employer] [facility] Address [address] [place] [address] 7 [place] [address] Care Team Providers Care Eye Surgeon Name Role Phone Name, Rafiq JENKINS Primary Care Provider [phone] Reason for Visit * Reason Comments Med Refill Encounter Details Date Type Department Care Team (Late st Contact Info) Description 08/03/2023 Refill [facility] [address] [place] [address] [phone] Name, MD Rafiq [address] [place] [address] Social History Tobacco Use Types Packs/Day Years [...] Description 02/11/2025 11:30 AM EDT Clinical Support [address] [phone] Krysta Huston RN 03/13/2025 10:30 AM EDT Office Visit [address] [address] Name, MD Rafiq [address] [place] [address] documented as of this encounter Visit Diagnoses Not on filedocumented in this encounter Care Teams Eye Surgeon Relationship Specialty Start Date End Date Name, MD Rafiq [address] [place] [address] PCP - General Family Medicine 12/16/15 documented as of this encounter
--- OUTSIDE RECORDS SUMMARY | 2024-12-25 19:46 | XMS_ITS | Encounter Summary ---
Author Organization [facility] Address [address] [place] [address] Care Team Providers Care Fire Prevention Forester Name Role Phone Name, Rafiq JENKINS Primary Care Provider Magdalena Esteban NP Unavailable [phone] Mk Rolon MD Unavailable [phone] Reason for Visit * Reason Onset Date Comments Prior Authorization 11/23/2016 Encounter Details Date Type Department Care Team Description 11/23/2016 Telephone Cardiology - [address] [phone] Nga Aguirre PA-C [address] [place] [address] Prior Authorization Social History Tobacco Use Types Packs/Day Years Used Date Smoking Tobacco: Every Day Cigarettes 1.5 25 Smokeless Tobacco: Never Alcohol Use Standard Drinks/Week Comments No 0 (1 standard drink = 0.6 oz pur e alcohol) Sex Assigned at Date Recorded Not on file documented as of this encounter Miscellaneous Notes * Telephone Encounter - Jayda Cerna - 12/07/2016 3:41 PM EST DF from auth dept received call back from [facility]. They have gotten an authorization # for the echocardiogram. Auth # [id number] 12/07/16 - 12/07/17 * Telephone Encounter - Nazia Moran - 12/07/2016 1:53 PM EST Received call back from [facility]. They have gotten an authorization # for the echocardiogram. Auth # [id number] 12/07/16 - 12/07/17 * Telephone Encounter - Jayda Nehemiah - 12/07/2016 1:48 PM EST See note below from auth dept, had to cancel echo appt which was scheduled today 12/07/16 at 2:30 p.m. As of Nov 26, 2016 pt is under new plan which require auth from external pcp office. Patient did not want to be billed for this test. * Telephone Encounter - Nazia Moran - 12/07/2016 1:30 PM EST Patient now has [facility] and needs a prior auth. Still has Dr. Conroy Name as PCP. He is now at [facility]. Called [facility] to acquire authorization. Had to leave a message For them to call us back with auth. * Telephone Encounter - Jayda Cerna - 11/23/2016 4:14 PM EST Echo Booked for 12/07/16 * Telephone Encounter - Nicolasa Blue - 11/23/2016 3:03 PM EST No auth required * Telephone Encounter - Jayda Cerna - 11/23/2016 2:50 PM EST Does the echocardiogram require pre-auth? Thank you documented in this encounter Plan of Treatment Not on file documented as of this encounter Visit Diagnoses Not on filedocumented in this encounter Care Teams Fire Prevention Forester Relationship Specialty Start Date End Date Name, MD Rafiq PCP - General Internal Medicine 01/31/16 Magdalena Coreas NP Cardiology 04/14/21 Mk Rolon MD [address] [place] [address] [place] [address] Specialist Cardiovascular Disease 04/14/21 documented as of this encounter
--- OUTSIDE RECORDS SUMMARY | 2024-12-25 19:46 | XMS_ITS | Encounter Summary ---
Author Organization [facility] Address [address] [place] [address] Care Team Providers Care Lobster Fisherman Name Role Phone Name, Rafiq JENKINS Primary Care Provider Magdalena Esteban SPOT FACER Unavailable [phone] Mk Rolon MD Unavailable [phone] Encounter Details Date Type Department Care Team Description 02/25/2021 [facility] Medical Records [address] [place] [address] Social History Tobacco Use Types Packs/Day Years [...] on filedocumented in this encounter Care Teams Lobster Fisherman Relationship Specialty Start Date End Date Name, MD Rafiq PCP - General Internal Medicine 01/31/16 Magdalena Coreas, SELINA Cardiology 04/14/21 Mk Rolon MD [address] [place] [address] [address] [place] [address] Specialist Cardiovascular Disease 04/14/21 documented as of this encounter
--- OUTSIDE RECORDS SUMMARY | 2024-12-25 19:46 | XMS_ITS | Encounter Summary ---
Author Organization [employer] Address [address] [facility] 7t [place] [address] Care Team Providers Care Healthcare Applications Analyst Name Role Phone Name, Rafiq JENKINS Primary Care Provider [phone] Reason for Visit * Reason Onset Date Comments Med Refill 12/05/2024 Encounter Details Date Type Department Care Team ([facility] st Contact Info) Description 12/05/2024 Refill [facility] [address] [place], [place] [phone] Name, MD Rafiq [address] [place], [place] [phone] Mild intermittent asthma, unspecified whether complicated Social [...] MG EC tablet To be sent to: [facility]/pharmacy #[id number] [place] [address] [facility] [facility] documented in this encounter Plan of Treatment Upcoming Encounters Date Type Department Care Team (Late st Contact Info) Description 02/11/2025 11:30 AM EDT Clinical Support [facility] [address] [place] [address] Krysta Huston RN 03/13/2025 10:30 AM EDT Office Visit [facility] [address] [place] [address] Name, MD Rafiq [address] [place] [address] documented as of this encounter Visit Diagnoses Diagnosis Mild intermittent asthma, unspecified whether complicated documented in this encounter Additional Health Concerns Assessment Noted Time PHQ-9 Depression Total Score: 0 02/05/20 24 2:30 PM EDT documented as of this encounter Care Teams Healthcare Applications Analyst Relationship Specialty Start Date End Date Name, MD Rafiq [address] [place] [address] PCP - General Family Medicine 12/16/15 documented as of this encounter
--- OUTSIDE RECORDS SUMMARY | 2024-12-25 19:46 | XMS_ITS | Encounter Summary ---
Author Organization [facility] Address [address] [place] [address] Care Team Providers Care Senior Storage Engineer Name Role Phone Name, Rafiq JENKINS Primary Care Provider Unavailabl e Name, Rafiq JENKINS Primary Care Provider Unavailabl e Magdalena Coreas NP Unavailable [phone] Mk Rolon MD Unavailable [phone] Reason for Visit * Reason Onset Date Comments REFERRAL 05/14/2014 Encounter Details Date Type Department Care Team Description 05/14/2014 Telephone Urology [address] [place] [address] Alan Garcia MD REFERRAL Social History Tobacco Use Types Packs/Day Years Used Date Smoking Tobacco: Every Day Cigarettes 1 25 Smokeless Tobacco: Never Comments:has started smoking again 4-6 cigarettes a day Alcohol Use Standard Drinks/Week Comments No 0 (1 standard drink = 0.6 oz pur e alcohol) Sex Assigned at Date Recorded Not on file documented as of this encounter Miscellaneous Notes * Telephone Encounter - Anny Alva - 05/14/2014 11:33 AM EDT Pt was referred to Urology re: Refer to Urology Reason for referral: Evaluate for renal stone Hematuria, uti Priority: within 2-3 weeks Payor: Not third-libertarian related No appts within time frame, please advise. documented in this encounter Plan of Treatment Not on file documented as of this encounter Visit Diagnoses Not on filedocumented in this encounter Care Teams Senior Storage Engineer Relationship Specialty Start Date End Date Name, MD Rafiq PCP - General 07/30/08 01/30/16 Name, MD Rafiq PCP - General Internal Medicine 01/31/16 Magdalena Coreas NP Cardiology 04/14/21 Mk Rolon MD [address] [place] [address] [place] [address] Specialist Cardiovascular Disease 04/14/21 documented as of this encounter
--- OUTSIDE RECORDS SUMMARY | 2024-12-25 19:46 | XMS_ITS | Encounter Summary ---
Author Organization [employer] [facility] Address [address] [place] [address] Care Team Providers Care Astro Technician Name Role Phone Name, Rafiq JENKINS Primary Care Provider Magdalena Esteban NP Unavailable [phone] Mk Rolon MD Unavailable [phone] Encounter Details Date Type Department Care Team Description 02/21/2021 Hospital Medical Records [address] [place] [address] Social History Tobacco Use Types Packs/Day Years [...] on file documented as of this encounter Procedures Procedure Name Priority Date/Time Associated Diagnosis Comments OUTSIDE EKG Routine 02/22/2021 OUTSIDE LAB Routine 02/22/2021 OUTSIDE CARDIAC CATH Routine 02/21/2021 OUTSIDE NUCLEAR STRESS TEST Routine 02/20/2021 OUTSIDE NUCLEAR STRESS TEST Routine 02/20/2021 OUTSIDE LAB Routine 02/20/2021 OUTSIDE PLAIN FILM Routine 02/18/2021 documented in this encounter Results * OUTSIDE LAB (02/22/2021) Provider Abstract LAB * OUTSIDE EKG (02/22/2021) Provider Abstract CARDIOLOGY * OUTSIDE CARDIAC CATH (02/21/2021) Provider Abstract CARDIOLOGY * OUTSIDE LAB (02/20/2021) Provider Abstract LAB * OUTSIDE NUCLEAR STRESS TEST (02/20/2021) Provider Abstract CARDIOLOGY * OUTSIDE NUCLEAR STRESS TEST (02/20/2021) Provider Abstract CARDIOLOGY * OUTSIDE PLAIN FILM (02/18/2021) Provider Abstract RADIOLOGY documented in this encounter Visit Diagnoses Not on filedocumented in this encounter Care Teams Astro Technician Relationship Specialty Start Date End Date Name, MD Rafiq PCP - General Internal Medicine 01/31/16 Magdalena Coreas NP Cardiology 04/14/21 Mk Rolon MD [address] [place] [address] [place] [address] Specialist Cardiovascular Disease 04/14/21 documented as of this encounter
--- OUTSIDE RECORDS SUMMARY | 2024-12-25 19:46 | XMS_ITS | Encounter Summary ---
Author Organization [employer] [facility] Address [address] [place] [address] Care Team Providers Care Nursing Care Attendant Name Role Phone Name, Rafiq JENKINS Primary Care Provider UnavailMagdalena Dalton NP Unavailable Mk Rolon MD Unavailable [phone] Encounter Details Date Type Department Care Team Description 05/29/2017 [facility] Medical Records [address] [place] [address] Ethan Mcnamara PA-C Social History Tobacco Use Types Packs/Day Years [...] Name Priority Date/Time Associated Diagnosis Comments OUTSIDE LAB Routine 05/29/2017 OUTSIDE LAB Routine 05/29/2017 documented in this encounter Results * OUTSIDE LAB (05/29/2017) Provider Abstract LAB * OUTSIDE LAB (05/29/2017) Provider Abstract LAB documented in this encounter Visit Diagnoses Not on filedocumented in this encounter Care Teams Nursing Care Attendant Relationship Specialty Start Date End Date Name, MD Rafiq PCP - General Internal Medicine 01/31/16 Magdalena Coreas NP Cardiology 04/14/21 Mk Rolon MD [address] [place] [address] DRIVE [address] [place] [address] Specialist Cardiovascular Disease 04/14/21 documented as of this encounter
--- OUTSIDE RECORDS SUMMARY | 2024-12-25 19:46 | XMS_ITS | Encounter Summary ---
Author Organization [employer] [facility] Address [address] [place] [address] 7t [place] [address] Care Team Providers Care Felling Machine Operator Name Role Phone Name, Rafiq JENKINS Primary Care Provider [phone] Reason for Visit * Reason Comments Med Refill Encounter Details Date Type Department Care Team (Late Contact Info) Description 06/03/2023 Refill [facility] [address] [place], [place] [phone] Sabine Boyd MD [address] [place], [place] [phone] Tobacco use disorder, continuous Social History Tobacco [...] Description 02/11/2025 11:30 AM EDT Clinical Support [address] [address] Krysta Huston, LUCAS 03/13/2025 10:30 AM EDT Office Visit [address] [address] Name, MD Rafiq [address] [place] [address] documented as of this encounter Visit Diagnoses Diagnosis Tobacco use disorder, continuous Tobacco use disorder documented in this encounter Care Teams Felling Machine Operator Relationship Specialty Start Date End Date Name, MD Rafiq [address] [place] [address] PCP - General Family Medicine 12/16/15 documented as of this encounter
--- OUTSIDE RECORDS SUMMARY | 2024-12-25 19:46 | XMS_ITS | Encounter Summary ---
Author Organization [employer] Address [address] [facility] 7t [place] [address] Care Team Providers Care Tavern Keeper Name Role Phone Name, Rafiq JENKINS Primary Care Provider [phone] Reason for Visit * Reason Onset Date Comments No Show 12/04/2024 Encounter Details Date Type Department Care Team ([facility] Contact Info) Description 12/04/2024 Telephone [facility] [address] [place], [place] [phone] Name, MD Rafiq [address] [place] [address] No Show Social History Tobacco Use Types [...] Description 02/11/2025 11:30 AM EDT Clinical Support [facility] [address] [place] [address] Krysta Huston RN 03/13/2025 10:30 AM EDT Office Visit [facility] [address] [place] [address] Name, MD Rafiq [address] [place] [address] documented as of this encounter Visit Diagnoses Not on filedocumented in this encounter Additional Health Concerns Assessment Noted Time PHQ-9 Depression Total Score: 0 02/05/20 24 2:30 PM EDT documented as of this encounter Care Teams Tavern Keeper Relationship Specialty Start Date End Date NameRafiq MD [address] [place] [address] PCP - General Family Medicine 12/16/15 documented as of this encounter
--- OUTSIDE RECORDS SUMMARY | 2024-12-25 19:46 | XMS_ITS | Clinical Summary ---
Author Organization [facility] Address [address] [place] [address] Care Team Providers Care Amusement Or Recreation Card Checker Name Role Phone Name, Rafiq JENKINS Primary Care Provider Magdalena Esteban SILK SCREEN ETCHER Unavailable [phone] Mk Rolon MD Unavailable [phone] Allergies Active Allergy Reactions Severity Noted Date Comments Ibuprofen OTHER 07/21/2015 Bleeding Medications Medication Sig Dispensed Refills Start Date End Date Status SPACER/AERO CHAMBER MOUTHPIECE MISCIndications:Co ugh as directed 1 0 12/02/2008 Active trazodone (DESYREL) 150 MG tablet Take 1 Tab by mouth at bedtime. 30 Tab 0 11/21/2012 Active aspirin (ASPIRIN LOW DOSE) 81 MG EC tablet Take 1 Tab by mouth daily. 30 Tab 5 05/11/2015 Active rosuvastatin (CRESTOR) 40 MG tablet Take 1 Tab by mouth daily. 30 Tab 5 05/11/2015 Active fluticasone (FLOVENT HFA) 110 MCG/ACT inhalerIndications :Tobacco use Inhale 2 Puffs into the lungs 2 times daily. 12 g 5 05/11/2015 Active ALBUTEROL SULFATE (PROAIR HFA) 108 (90 BASE) MCG/ACT Aero SolnIndications:To bacco use Inhale 2 Puffs into the lungs every 4 hours as needed for Cough or Wheezing. 1 Inhaler 5 05/11/2015 Active nitroGLYCERIN (NITROSTAT) 0.[address] 1 Tab under the tongue every 5 minutes as needed for Chest pain. TAKE 1 TABLET SUBLINGUALLY FOR CHEST PAIN EVERY 5 MINUTES, MAXIMUM 3 DOSES 25 Tab 5 09/29/2015 Active cyclobenzaprine (FLEXERIL) 10 MG tablet TAKE 1 TABLET BY MOUTH THREE TIMES DAILY NEEDED FOR MUSCLE PAIN 42 Tab 0 11/22/2015 Active oxycodone-acetamin ophen (PERCOCET) 5-325 MG per tabletIndications: Low back pain,DJD (degenerative joint disease),Neck pain 1 tab tid for 10 days then 1 tab bid for 10 days then 1 tab daily for 10 days then discontinue 60 Tab 0 12/13/2015 Active tamsulosin (FLOMAX) 0.4 MG 24 hr capsuleIndications :Benign non-nodular prostatic hyperplasia with lower urinary tract symptoms Take 1 capsule by mouth daily. Take 30 mins after same meal every day. 30 capsule 11 02/03/2016 Active gabapentin (NEURONTIN) 300 MG capsule Take 300 mg by mouth daily. 0 Active metoprolol (LOPRESSOR) 100 MG tablet Take 100 mg by mouth 2 times daily. 0 Active isosorbide mononitrate (IMDUR) 60 MG 24 hr tablet Take 1 Tablet by mouth daily. 90 Tablet 0 02/28/2022 Active clopidogrel (PLAVIX) 75 MG tablet Take 1 Tablet by mouth daily. 90 Tablet 0 07/14/2022 Active ammonium lactate (LAC-HYDRIN) 12 % lotion Apply to soles of feet daily. 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 No changes to medical therapies today. CAD (coronary artery disease) 04/26/2010 Overview: s/p PCI w SAQIB RCA/LCX on 04/11/2010 S/p PCI w SAQIB to LCx in 2016 S/p PCI w SAQIB x2 01/2021 Last Assessment & Plan: Mr. Jiang has history of coronary artery disease s/p SAQIB to LCx and RCA in 2009 and SAQIB to LCx in 2015. Most recently he had progression of severe LCx disease and underwent repeat PCI with 2 David placed to the LCx 01/2021. He is on dual antiplatelet therapy with aspirin and Plavix since his hospital discharge. We increased Isosorbide dose last office visit. He reports that the chest discomfort has improved. He reports only occasional chest discomfort which resolves with rest. He has not required the use of sublingual nitroglycerin. Patient encouraged to make efforts toward quitting smoking. We discussed the importance of following a heart healthy diet which is low in fat, low in salt and low in cholesterol. We discussed the significant importance of smoking cessation as it is associated with worsening coronary artery disease. He will remain on aspirin, Plavix, beta-angelica and statin as prescribed. Epigastric pain 01/26/2010 Obesity 07/22/2009 Depression 05/20/2009 Neck pain 12/24/2008 Knee pain 10/08/2008 High cholesterol 09/07/2008 Last Assessment & Plan: Patient's LDL cholesterol during hospitalization was 173. I have encouraged him to continue on Crestor 40 mg daily as prescribed. He did not complete labs ordered last visit. He has been given lab slip today and advised to get this done as soon as possible. DJD (degenerative joint disease) 008 Overview: Knee pain Asthma 09/07/2008 Overview: Only on albuterol. Uses the medication twice per week at most Kidney calculi 09/07/2008 Resolved Problems Problem Noted Date Resolved Date Chest pain 07/22/2009 04/26/2010 Overview: nomal nuclear stress test in 2008 Chest pain 12/24/2008 07/22/2009 Urinary frequency 10/08/2008 12/08/2008 Low back pain 09/07/2008 09/28/2015 Overview: Patient did not respond to lumbar spine injections in the past. He was evaluated by orthopedics Dr Flynn and he is not a surgical candidate. He did not respond to physical therapy in the past Tobacco abuse 09/07/2008 04/26/2010 HTN (hypertension) 09/07/2008 06/28/2010 Chest pain 09/07/2008 10/08/2008 Immunizations Name Administration Dates Next Due Influenza (> 6 Months) 09/10/2015,2013,08/12/2013,08/20,11/02/2011,09/07/2008 Influenza H1N1 Pandemic Flu Vaccine 01/26/2010 Pneumoccoccal(Adult) Polysac charide PPSV23 03/23/2014 Tdap 09/07/2008 Family History Medical History Relation Name Comments CA Prostate Father metastatic to l ungs and bones CA Breast Mother Glaucoma Mother CA Breast Sister 1 Blindness Negative Hx CAD Negative Hx Cataract Negative Hx Macular Degeneration Negative Hx Strabismus Negative Hx Relation Name Status Comments Daughter Alive GERD Father prostate cancer Mother lung cancer Sister 1 Alive heart problems Sister 2 Alive Son 1 Alive asthma Son 2 Alive asthma Social History Tobacco Use Types Packs/Day Years Used Date Smoking Tobacco: Every Day Cigarettes 0.5 25 Smokeless Tobacco: Current Tobacco Cessation:Ready to Q uit: Not Asked; Counseling Given: Not Answered Comments:1/2 to 1 ppd Alcohol Use Standard Drinks/Week Comments Yes 0 (1 standard drink = 0.6 oz pur e alcohol) socially Sex Assigned at Date Recorded Not on file Last Filed Vital Signs Vital Sign Reading Time Taken Comments Blood Pressure 100/62 05/25/2021 10:38 AM EDT Pulse 68 05/25/2021 10:38 AM EDT Temperature 36.8 ??C (98.2 ??F) 09/28/2015 10:[address] Respiratory Rate 12 11/11/2015 1:38 PM EST Oxygen Saturation 98% 03/15/2021 9:06 AM EDT Inhaled Oxygen Concentration - - Weight 92.5 kg (204 lb) 07/16/2024 2:22 PM EDT Height 165.1 cm (5' 5 ) 07/16/2024 2:22 PM EDT Body Mass Index 33.95 07/16/2024 2:22 PM EDT Plan of Treatment Health Maintenance Due Date Last Done Comments Covid-19 Vaccine (#1) [birth year]09/1966 HEPATITIS C SCREENING 1985 DIABETES/HEART DISEASE: RADHA STERLING CHOLESTEROL (LDL) 04/22/2016 04/22/2015, 01/15/2015, 2014, Additional history exists BASELINE HEALTH EXAM 40-64 05/11/201705/11, 10/28/2014, 08/20/2014, Additional history exists COLON CANCER SCREENING 2017 SHINGLES VACCINE (1 of 2) 2017 TOBACCO CHECK/ADVISE 05/25/2023 05/25/2021, 03/15/20 21 INFLUENZA (#1) 2024 09/10/2015, 08/26, 08/12/2013, Additional history exists BMI CHECK/ADVISE 11/26/2024 04/14/2021, , 07/24/2017, Additional history exists DEPRESSION SCREENING/FOLLOWUP 11/26/2024, 05/20/2009, 04/30/2009 SOCIAL NEEDS SCREENING 11/26/2024 DTAP/TDAP/TD (4 - Td or Tdap) 12/09/2031, 06/24/2019, 09/07/2008 PNEUMOCOCCAL VACCINE FOR HIG H RISK PATIENTS (#2) 2032 03/23/2014 Care Teams Amusement Or Recreation Card Checker Relationship Specialty Start Date End Date Name, MD Rafiq PCP - General Internal Medicine 01/31/16 Magdalena Coreas NP Cardiology 04/14/21 Mk Rolon MD [address] [place] [address] [address] [place] [address] Specialist Cardiovascular Disease 04/14/21
--- OUTSIDE RECORDS SUMMARY | 2024-12-25 19:46 | XMS_ITS | Encounter Summary ---
Author Organization [facility] Address [address] [place] [address] Care Team Providers Care Securities And Real Estate Director Name Role Phone Name, Rafiq JENKINS Primary Care Provider Magdalena Esteban BIN WORKER Unavailable [phone] Mk Rolon MD Unavailable [phone] Encounter Details Date Type Department Care Team Description 02/18/2021 [facility] Medical Records [address] [place] [id number] Social History Tobacco Use Types Packs/Day Years [...] on filedocumented in this encounter Care Teams Securities And Real Estate Director Relationship Specialty Start Date End Date Name, MD Rafiq PCP - General Internal Medicine 01/31/16 Magdalena oCreas, SELINA Cardiology 04/14/21 Mk Rolon MD [address] [place] [address] [address] [place] [address] Specialist Cardiovascular Disease 04/14/21 documented as of this encounter
--- OUTSIDE RECORDS SUMMARY | 2024-12-25 19:46 | XMS_ITS | Encounter Summary ---
Author Organization [facility] Address [address] [place] [address] Care Team Providers Care Department Store General Manager Name Role Phone Name, Rafiq JENKINS Primary Care Provider Magdalena Esteban REINFORCED IRONWORKER Unavailable [phone] Mk Rolon MD Unavailable [phone] Encounter Details Date Type Department Care Team Description 11/22/2016 [facility] Medical Records [address] [place] [address] Social History Tobacco Use Types Packs/Day Years [...] on filedocumented in this encounter Care Teams Department Store General Manager Relationship Specialty Start Date End Date Name, MD Rafiq PCP - General Internal Medicine 01/31/16 Magdalena Coreas, SELINA Cardiology 04/14/21 Mk Rolon MD [address] [place] [address] [address] [place] [address] Specialist Cardiovascular Disease 04/14/21 documented as of this encounter
--- OUTSIDE RECORDS SUMMARY | 2024-12-25 19:46 | XMS_ITS | Encounter Summary ---
Author Organization [facility] Address [address] [place] [address] Care Team Providers Care Speech Therapy Director Name Role Phone Name, Rafiq JENKINS Primary Care Provider Magdalena Esteban REVENUE INTEGRITY ANALYST Unavailable [phone] Mk Rolon MD Unavailable [phone] Encounter Details Date Type Department Care Team Description 02/17/2016 Release of Information Medical Records [address] [place] [id number] Abstract, Provider Social History Tobacco Use Types [...] on filedocumented in this encounter Care Teams Speech Therapy Director Relationship Specialty Start Date End Date Name, MD Rafiq PCP - General Internal Medicine 01/31/16 Magdalena Coreas, SELINA Cardiology 04/14/21 Mk Rolon MD [address] [place] [address] [address] [place] [address] Specialist Cardiovascular Disease 04/14/21 documented as of this encounter
--- OUTSIDE RECORDS SUMMARY | 2024-12-25 19:46 | XMS_ITS | Encounter Summary ---
Author Organization [employer] Address [address] [facility] [address] [place] [address] Care Team Providers Care Service Attendant Cafeteria Name Role Phone Name, Rafiq JENKINS Primary Care Provider [phone] Reason for Visit * Reason Comments Med Change Request Encounter Details Date Type Department Care Team ([facility] st Contact Info) Description 09/24/[address] [facility] MEDICINE [address] [place], [place] [phone] Name, MD Rafiq [address] [place], [place] [phone] Social History Tobacco Use Types Packs/Day Years [...] 02/11/2025 11:30 AM EDT Clinical Support [address] [address] Krysta Huston RN 03/13/2025 10:30 AM EDT Office Visit [address] [address] Name, MD Rafiq [address] [place] [address] documented as of this encounter Visit Diagnoses Not on filedocumented in this encounter Care Teams Service Attendant Cafeteria Relationship Specialty Start Date End Date Name, MD Rafiq [address] [place] [address] PCP - General Family Medicine 12/16/15 documented as of this encounter
--- OUTSIDE RECORDS SUMMARY | 2024-12-25 19:46 | XMS_ITS | Encounter Summary ---
Author Organization [employer] Address [address] [facility] [address] [place] [address] Care Team Providers Care I O Psychologist Name Role Phone Name, Rafiq JENKINS Primary Care Provider [phone] Reason for Visit * Reason Onset Date Comments Med Refill 12/05/2024 Encounter Details Date Type Department Care Team ([facility] st Contact Info) Description 12/05/[address] [facility] MEDICINE [address] [place], [place] [phone] Name, MD Rafiq [address] [place], [place] [phone] Chronic low back pain, unspecified back pain [...] 5-325 MG tablet To be sent to: [facility]/pharm[id number] [facility] documented in this encounter Plan of Treatment Upcoming Encounters Date Type Department Care Team (Late st Contact Info) Description 02/11/2025 11:30 AM EDT Clinical [address] [facility] [address] [place] [phone] Krysta Huston RN 03/13/2025 10:30 AM EDT Office [address] [facility] [address] [place] [phone] Name, MD Rafiq [address] [place] [address] documented as of this encounter Visit Diagnoses Diagnosis Chronic low back pain, unspecified back pain laterality, unspecified whether sciatica present documented in this encounter Additional Health Concerns Assessment Noted Time PHQ-9 Depression Total Score: 0 02/05/20 24 2:30 PM EDT documented as of this encounter Care Teams I O Psychologist Relationship Specialty Start Date End Date Rafiq Grace MD [address] [place] [address] PCP - General Family Medicine 12/16/15 documented as of this encounter
--- OUTSIDE RECORDS SUMMARY | 2024-12-25 19:46 | XMS_ITS | Encounter Summary ---
Author Organization [facility] Address [address] [place] [address] Care Team Providers Care Child Guidance Counselor Name Role Phone Name, Rafiq JENKINS Primary Care Provider Magdalena Esteban JOB RECRUITER Unavailable [phone] Mk Rolon MD Unavailable [phone] Encounter Details Date Type Department Care Team Description 11/18/2016 [facility] Medical Records [address] [place] [phone] Social History Tobacco Use Types Packs/Day Years [...] on filedocumented in this encounter Care Teams Child Guidance Counselor Relationship Specialty Start Date End Date Name, MD Rafiq PCP - General Internal Medicine 01/31/16 Magdalena Coreas, SELINA Cardiology 04/14/21 Mk Rolon MD [address] [place] [address] [address] [place] [address] Specialist Cardiovascular Disease 04/14/21 documented as of this encounter
== END 2024-12-25 18:57 | disposition home or self-care (01) ==
LOC: HO.MRI 18:56
PROVIDERS: PCP Internal Medicine Geriatric Medicine; Visit Provider Nurse Practitioner Family
DX: M17.12 Unilateral primary osteoarthritis, left knee (principal)
CPT/HCPCS: 73721

== ENCOUNTER → 2025-01-01 11:59 | Outpatient (BNV) | payer MEDICAID, SELFPAY | PROVIDERS: PCP Internal Medicine Geriatric Medicine; Visit Provider Orthopaedic Surgery | DX: G56.01 Carpal tunnel syndrome, right upper limb (principal) | CPT/HCPCS: 64721 ==

== ENCOUNTER → 2025-01-01 11:59 | Day surgery (SDC) | payer MEDICAID, SELFPAY ==
--- OUTSIDE RECORDS SUMMARY | 2025-01-01 12:02 | XMS_ITS | Encounter Summary ---
Author Organization [facility] Address [address] [place] [address] Care Team Providers Care Investigative Research Specialist Name Role Phone Name, Rafiq JENKINS Primary Care Provider Unavailoj e Rafiq Grace MD Primary Care Provider Unavailabl e Magdalena Coreas GOLF COACH Unavailable [phone] Mk Rolon MD Unavailable [phone] Encounter Details Date Type Department Care Team Description 03/18/2014 [facility] Medical Records [address] [place] [address] Abstract, Provider Social History Tobacco Use Types [...] on filedocumented in this encounter Care Teams Investigative Research Specialist Relationship Specialty Start Date End Date Rafiq Grace MD PCP - General 07/30/08 01/30/16 Rafiq Grace MD PCP - General Internal Medicine 01/31/16 Magdalena Coreas NP Cardiology 04/14/21 Mk Rolon MD [address] [place] [address] [address] [place] [address] Specialist Cardiovascular Disease 04/14/21 documented as of this encounter
--- OUTSIDE RECORDS SUMMARY | 2025-01-01 12:02 | XMS_ITS | Clinical Summary ---
Author Organization [employer] Address [address] [place] [address] 7t [place] [address] Care Team Providers Care Bilingual Speech Therapist Name Role Phone Name, Rafiq JENKINS Primary Care Provider [phone] Allergies Active Allergy Reactions Criticality Noted Date Comments Ibuprofen 07/21/2015 Bleeding from bladder Naproxen 01/17/2016 Medications clopidogrel (Plavix) 75 MG tablet Take 1 tablet by mouth Once daily. 07/14/20 22 Active Diclofenac Sodium 1 % gel APPLY 2 GRAMS TO AFFECTED AREA TWICE A DAY 08/28/20 22 Active ergocalciferol (Vitamin D-2) 1.25 MG (22995 UT) capsule Take 1 capsule by mouth [...] MG EC tabletIndicatio ns:Coronary artery disease involving [place] george coronary artery of [place] george heart without angina pectoris TAKE 1 TABLET BY MOUTH EVERY DAY 90 tablet 1 11/05/20 24 Active oxyCODONE-aceta minophen (Percocet) 5-325 MG tabletIndicatio [...] inhalerIndicati ons:Mild intermittent asthma, unspecified whether complicated INHALE 2 PUFFS BY MOUTH EVERY 4 TO 6 HOURS NEEDED 18 g 12/31/19 25 Active albuterol (Ventolin HFA) 108 (90 Base) [...] eorder (will not trigger notification to Pharmacy)) albuterol (Ventolin HFA) 108 (90 Base) MCG/ACT inhalerIndicati ons:Mild intermittent asthma, unspecified whether complicated TAKE 2 PUFFS BY MOUTH EVERY 4 TO 6 HOURS NEEDED 18 g 12/05/19 25 025 Discontinued Active Problems Problem Noted Date Diagnosed Date [...] disease) 12/01/2016 Overview (02/06/2024): He follows at [facility]. Cardiac catheterization was in January 2021 [...] Encounters Date Type Department Care Team Description 12/31/2024 Refill [facility] [address] [place] [address] Latosha Car MD Mild intermittent asthma, unspecified whether complicated 12/25/2024 Orders Only [facility] External Provider, [facility] 12/17/2024 11:30 AM EST Clinical Support [facility] [address] [facility] [place] [address] Krysta Huston RN Chronic pain syndrome (Primary Dx) 12/17/2024 Travel 12/17/2024 Telephone [facility] [address] [place] [address] Krysta Huston RN Recommend [employer] Tier 2 12/05/2024 Refill [facility] [address] [place] [address] Rafiq Grace MD Mild intermittent asthma, unspecified whether complicated 12/05/2024 Refill [facility] [place] [address] Rafiq Grace MD Chronic low back pain, unspecified back pain laterality, unspecified whether sciatica present 12/04/2024 Telephone [facility] [place] [address] Rafiq Grace MD No Show 11/18/2024 Telephone [facility] [place] [address] Rafiq Grace MD CALLBACK REQUESTED 11/18/2024 Telephone [facility] [address] [place] [address] Rafiq Grace MD FMLA (I called the patient regarding an application for FMLA, from [facility] [employer]. I reached his voicemail, and left a message asking him to return my call at ext [phone].) 11/05/2024 Refill [facility] [address] [facility] [place] [address] Rafiq Grace MD Coronary artery disease involving [facility]. george coronary artery of [place] george heart without angina pectoris 11/05/2024 Refill [facility] [place] [address] Rafiq Grace MD Chronic low back pain, unspecified back pain laterality, unspecified whether sciatica present 10/29/2024 Telephone [facility] [address] [place] [address] PerezRosniecy BLANE Approval notification 10/28/2024 Telephone [facility] [address] [place] [address] Elizabeth Edge, LUCAS 10/21/[address] [address] Qing Alcaraz RN 10/17/[address] [address] Rafiq Grace MD Letter for School/Work 10/17/2024 Orders Only [address] [address] Rafiq Grace MD 10/17/2024 Orders Only [facility] External Provider, [facility] 10/17/[address] [address] Elizabeth Edge RN 10/15/2024 3:45 PM EST Office Visit [address] [address] Rafiq Grace MD Coronary artery disease involving [facility]. 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 (CMS/HCC) (Primary Dx); Other emphysema (CMS/HCC); Bilateral carpal tunnel syndrome; Chronic bilateral low back pain with left-sided sciatica 10/15/2024 Travel 10/13/[address] [address] Monique Bal [place] Chart Prep 10/07/[address] [address] Rafiq Grace MD Chronic low back pain, unspecified back pain laterality, unspecified whether sciatica present from Last 3 Months Immunizations Name Administration Dates Next Due HepB-CpG 05/15/2023,04/11/2023 Influenza injectable quadriv alent IIV4 with preservative 11/14/2019,08/28/2016 Influenza injectable quadriv alent preservative free 09/05/2023,08/18/2022,09/03/2017 Influenza, IIV3, injectable 09/10/2015,1 ,08/12/2013,08/20,11/02/2011,04/09/2010,09/07/2008 Influenza, seasonal, injecta ble, preservative free 08/11/2024 Novel ujikomsin-[id number], preservative-free 01/26/2010 Pneumococcal Conjugate PCV 20 04/11/2023 [...] Clinical Support [facility] [address] [place] [address] Krysta Huston RN 03/13/2025 10:30 AM EDT Office Visit [facility] [address] [place] [address] Name, MD Rafiq [address] [place] [address] Health Maintenance Due Date Last Done Comments [...] history exists Depression Screening 02/04/2025 02/05/2024, 02/05/20 SDOH Screening 02/04/2025 02/05/2024 Alcohol/Substance Use Screening [...] Pneumococcal Vaccine: 50+ Years Completed 04/11/2023, 03/23/2014 Hepatitis B Vaccines Completed [...] Procedure Name Priority Date/Time Associated Diagnosis Comments MR KNEE WO CONTRAST LEFT Routine 12/25/2024 7:05 PM EST POCT FRANCI-14 URINE DRUG SCREEN Routine 12/17/2024 11:37 AM EST Chronic pain syndrome FL ESOPHAGUS BARIUM SWALLOW WITH AIR Routine 11/27/2024 8:00 AM EST XR CHEST 2 VIEWS Routine 10/17/2024 3:06 PM EST LIPID PANEL, STANDARD Routine 10/17/2024 10:27 AM EST Coronary artery disease involving st. 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 (CMS/HCC) HEPATITIS C ANTIBODY Routine 02/06/2024 12:22 PM [...] Recently Relevant to Health Maintenance Results * MR Knee w/o Contrast Left (12/25/2024 7:05 PM EST) Anatomical Region Laterality Modality Magnetic Resonan ce 12/25/2024 7:05 PM EST Narrative 12/26/2024 8:17 AM EST ? [facility] ?[address] ?[place] [address] ? Magnetic Resonance Report ? Signed ? Patient: Deidre Colon,[place] ?MR#: M ?? [id number] ? : 1965 ?Acct:[id number] ? Age/Sex: 59 / M ?ADM Date: 01/30/25 ? Loc: HO.MRI ? Attending Dr: Kristan PETTY ? Ordering Physician: Kristan Oconnell ?? Date of Service: 12/25/24 ?? Procedure(s): MR knee LT wo con ?? Accession Number(s): [id number] ? cc: Kristan Oconnell; Name,Rafiq JENKINS ? EXAMINATION: MRI LEFT KNEE WITHOUT CONTRAST ? HISTORY: M25.562 - Pain in left knee ? COMPARISON: Correlation is made to plain films of the left knee dated ?? 09/29/2024. ? TECHNIQUE: ??Coronal T1 and fat-suppressed proton density, sagittal ?? proton density and fat-suppressed proton density, and axial fat ?? suppressed T2 weighted MR images of the left knee were obtained. ? FINDINGS: ? Bone marrow: Bone marrow signal intensity is normal. ? Joint effusion: There is no significant joint effusion. ? Buck's cyst: There is no Buck's cyst. ? Articular cartilage: Intact ? Muscles: There is increased T2 signal intensity within the ?? semimembranosus tendon at its insertion on the proximal tibia. The ?? tendon is enlarged in this region and demonstrates a wavy contour. ?? There is fluid surrounding the distal tendon. Findings are consistent ?? with a high-grade partial tear. There is also a small amount of ?? increased T2 signal intensity within the proximal gastrocnemius tendon ?? compatible with a sprain versus partial tear. ? Anterior cruciate ligament: Intact ? Posterior cruciate ligament: Intact ? Medial collateral ligament: Intact ? Lateral collateral ligament: Intact ? Medial meniscus: Minimal degenerative signal in the posterior horn ?? without evidence of a tear. ? Lateral meniscus: Intact ? Popliteus tendon: Intact ? Quadriceps tendon: Intact ? Patellar tendon: Intact ? Patellar retinacula: Intact ? MR/MR knee LT wo con ?? IMPRESSION: ?? High-grade partial tear of the distal semimembranosus tendon. Sprain ?? versus partial tear of the proximal gastrocnemius tendon. ? Electronically signed by: ??Nicolas Gavin MD ??12/26/2024 08:14 AM EST ?? RP ? Dictated By: ?Nicolas Gavin MD ? Signed By: ?<Electronically signed by Nicolas Gavin MD in OV> ?12/26/24 0814 ? DD/ 1905 ? TD/TT: 12/25/241924 ? Lasting Room Machine Operator: ? Procedure Note Donotuseinterpreter, Image - 12/26/2024 [place] [address] Magnetic Resonance Report Signed Patient: Erick Bejarano#: M [id number] : 1965Acct:[id number] Age/Sex: 59 / MADM Date: 12/25/24 Loc: HO.MRI Attending Dr: Kristan PETTY Ordering Physician: Kristan Oconnell Date of Service: 12/25/24 Procedure(s): MR knee LT wo con Accession Number(s): [id number] cc: Kristan Oconnell; Name,Rafiq JENKINS EXAMINATION: MRI LEFT KNEE WITHOUT CONTRAST HISTORY: M25.562 - Pain in left knee COMPARISON: Correlation is made to plain films of the left knee dated 09/29/2024. TECHNIQUE: Coronal T1 and fat-suppressed proton density, sagittal proton density and fat-suppressed proton density, and axial fat suppressed T2 weighted MR images of the left knee were obtained. FINDINGS: Bone marrow: Bone marrow signal intensity is normal. Joint effusion: There is no significant joint effusion. Buck's cyst: There is no Buck's cyst. Articular cartilage: Intact Muscles: There is increased T2 signal intensity within the semimembranosus tendon at its insertion on the proximal tibia. The tendon is enlarged in this region and demonstrates a wavy contour. There is fluid surrounding the distal tendon. Findings are consistent with a high-grade partial tear. There is also a small amount of increased T2 signal intensity within the proximal gastrocnemius tendon compatible with a sprain versus partial tear. Anterior cruciate ligament: Intact Posterior cruciate ligament: Intact Medial collateral ligament: Intact Lateral collateral ligament: Intact Medial meniscus: Minimal degenerative signal in the posterior horn without evidence of a tear. Lateral meniscus: Intact Popliteus tendon: Intact Quadriceps tendon: Intact Patellar tendon: Intact Patellar retinacula: Intact MR/MR knee LT wo con IMPRESSION: High-grade partial tear of the distal semimembranosus tendon. Sprain versus partial tear of the proximal gastrocnemius tendon. Electronically signed by: Nicolas Gavin MD 12/26/2024 08:14 AM EST RP Dictated By: Nicolas Gavin MD Signed By: <Electronically signed by Nicolas Gavin MD in OV> 12/26/248[address] DD/ 04 TD/TT: 12/25/241924 Lasting Room Machine Operator: [facility] External Provider IMG MRI PROCEDURES Final Result * POCT FRANCI-14 Urine Drug Screen (12/17/2024 11:37 AM EST) THC Positive Oxycodone Screen, Urine Positive Urine Urine specimen obtained by clean catch procedure / Unknown 12/17/2024 11:37 AM EST Narrative Krysta Huston RN - 12/17/2024 11:37 AM EST UTOX cup Lot#[id number] Exp. 08/20/26 Internal Pass Control Rafiq Grace MD POINT OF CARE TEST ENTER/EDIT OR DERABLES Final Result * FL Esophagus Barium Swallow w/Air (11/27/2024 8:00 AM EST) Anatomical Region Laterality Modality Head, Neck Radiographic Nova ging 11/27/2024 8:00 AM EST Narrative 11/27/2024 4:09 PM EST ? [facility] ?[address] ?[place] [address] ? Fluoroscopy Report ? Signed ? Patient: Deidre Colon,[place] ?MR#: M ?? [id number] ? : 1965 ?Acct:[id number] ? Age/Sex: 59 / M ?ADM Date: /02/25 ? Loc: HO.XRAY ? Attending Dr: Rafiq Grace MD ? Ordering Physician: Rafiq Grace MD ?? Date of Service: 11/27/24 ?? Procedure(s): FL barium swallow with air ?? Accession Number(s): [id number] ? cc: Rafiq Grace MD ? EXAMINATION: [...] DD/ 0800 ? TD/TT: 11/27/24 0825 ? Lasting Room Machine Operator: ? Procedure Note Donotuseinterpreter, Image - 11/27/2024 [place] [address] Fluoroscopy Report Signed Patient: Erick Bejarano#: M [id number] : 1965Acct:[id number] Age/Sex: 59 / MADM Date: 11/27/24 Loc: MUSA Attending Dr: Rafiq Grace MD Ordering Physician: Rafiq Grace MD Date of Service: 11/27/24 Procedure(s): FL barium swallow with air Accession Number(s): [id number] cc: Rafiq Grace MD EXAMINATION: XR FLUOROSCOPY [...] 11/27/24 1609 DD/ 0800 TD/TT: 11/27/24 0825 Lasting Room Machine Operator: us Rafiq MACHUCA FLUOROSCOPY PROCEDURES Edite d Result - Final * XR Chest 2 Views (10/17/2024 3:06 PM EST) Anatomical Region Laterality Modality Chest Radiographic Nova ging 10/17/2024 3:06 PM EST Narrative 10/17/2024 3:47 PM EST ? [place] [facility] ?[address] ?[place] [address] ?XRay Report ? Signed ? Patient: Deidre Colon,[place] ?MR#: M ?? [id number] ? : 1965 ?Acct:[id number] ? Age/Sex: 59 / M ?ADM Date: 10/17/24 ? Loc: HO.XRAY ? Attending Dr: Kylah Calderon MD ? Ordering Physician: Kylah Claderon MD ?? Date of Service: 10/17/24 ?? Procedure(s): XR chest 2V ?? Accession Number(s): [id number] ? cc: Rafiq Grace MD; Kylah Calderon [...] DD/ 1506 ? TD/TT: 10/17/24 1520 ? Lasting Room Machine Operator: ? Procedure Note Halima Shoemaker - 10/17/[address] [address] XRay Report Signed Patient: Erick Bejarano#: M [id number] : 1965Acct:[id number] Age/Sex: 59 / MADM Date: 10/17/24 Loc: MUSA Attending Dr: Kylah Calderon MD Ordering Physician: Kylah Calderon MD Date of Service: 10/17/24 Procedure(s): XR chest 2V Accession Number(s): [id number] cc: Rafiq Grace MD; Kylah Calderon MD [...] Ciaran Anderson MD 10/17/2024 03:42 PM EST RP Dictated By: Ciaran Palomo MD Signed By: <Electronically signed by Ciaran Guzman MDin OV> 10/17/24 1542 DD/ 1506 TD/TT: 10/17/24 1520 Lasting Room Machine Operator: [facility] External Provider IMG XR PROCEDURES Final Result * (ABNORMAL) Lipid Panel, Standard (10/17/2024 10:27 AM EST) Triglycerides 164(H) <150 mg/dL [facility] Comment:Desirable Triglyceri de: less than 150 mg/dLBorderline High Triglyceride 150-199 mg/dLHigh Triglyceride: 200-499 mg/dLVery High Triglyceride: greater than or equal to 5OO mg/dL Cholesterol 214(H) <200 mg/dL [facility] Comment:Desirable Cholestero l: less than 200 mg/dLBorderline High Cholesterol: 200-239 mg/dLHigh Cholesterol: greater than 239 mg/dL LDL Cholesterol Calculated 151(H) <100 mg/dL [facility] Comment:Desirable LDL: less than 100 mg/dLNear Optimal/Above Optimal LDL: 110- 129 mg/dLBorderline High LDL: 130-159 mg/dLHigh LDL: 160-189 mg/dLVery High LDL: greater than or equal to 190 mg/dL HDL Cholesterol 31(L) >40 mg/dL [facility] Comment:Desirable HDL: great er than 40 mg/dL Note: This HDL assay may give artificially low results in patients with liver disease. Blood Venous blood specimen / Unknown 10/17/2024 10:27 AM EST 10/17/2024 11:05 AM EST Rafiq Grace MD LAB BLOOD ORDERABLES Final Resul t Performing Organization Address [facility] Co de Phone Number [facility] [address] [place] [phone] * Hepatitis C Ab (02/06/2024 12:22 PM EDT) Pathologist [facility] Hepatitis C Antibody Nonreactive Nonreactive [facility] Comment:Antibodies to HCV no t detected; does not exclude early acuteHCV infection. Blood Venous blood specimen / Unknown 02/06/2024 12:22 PM EDT 02/06/2024 1:11 PM EDT Rafiq Grace MD LAB BLOOD ORDERABLES Final Resul t Performing Organization Address [facility] Co de Phone Number [facility] [address] [place] [phone] * POCT HGB A1C (12/03/2023 4:16 PM EST) [facility] Hemoglobin A1C 5.6 4.0 - 6.0 % Other 12/03/2023 4:16 PM EST Result [facility] Rafiq Grace MD POINT OF CARE TEST ENTER/EDIT OR DERABLES Final Result * (ABNORMAL) Lung Cancer Screning (07/03/2023) Pathologist [facility] Lung CT LUNGRADS 0(A) LUNGRADS 1, LUNGRADS 2 Anatomical Region Laterality Modality Other Lisa Middleton HEALTH MAINTENANCE Final Resul t * Colonoscopy (12/24/2020 12:59 PM EST) Pathologist [facility] Colonoscopy Normal Normal Narrative Danielle Orellana - 12/24/2020 12:59 PM EST Recommended 5 year follow up Lucy Paulino MD HEALTH MAINTENANCE Final Result from Last 3 Months or Most Recently Relevant to Health Maintenance [place] [address] [place] [address] C3 DENTAL-[facility] MEDICAID STAND ADULT DENTAL - HSN FULL (MEDICAID) DENTAL - [employer] DENTAL [employer] [address] [place] [address] Care Teams Bilingual Speech Therapist Relationship Specialty Start Date End Date Name, MD Rafiq [address] [place] [phone] PCP - General Family Medicine 12/16/15
--- OUTSIDE RECORDS SUMMARY | 2025-01-01 12:02 | XMS_ITS | Encounter Summary ---
Author Organization [employer] Address [address]t [place] [address] Care Team Providers Care Used Car Sales Supervisor Name Role Phone Name, Rafiq JENKINS Primary Care Provider [phone] Encounter Details Date Type Department Care Team [...] Description 02/11/2025 11:30 AM EDT Clinical Support [facility] [address] [place] [address] Krysta Huston RN 03/13/2025 10:30 AM EDT Office Visit [facility] [address] [place] [address] Name, MD Rafqi [address] [place] [address] documented as of this encounter Visit Diagnoses Not on filedocumented in this encounter Additional Health Concerns Assessment Noted Time PHQ-9 Depression Total Score: 0 02/05/20 24 2:30 PM EDT documented as of this encounter Care Teams Used Car Sales Supervisor Relationship Specialty Start Date End Date Name, MD Rafiq [address] [place] [address] PCP - General Family Medicine 12/16/15 documented as of this encounter
--- OUTSIDE RECORDS SUMMARY | 2025-01-01 12:02 | XMS_ITS | Encounter Summary ---
Author Organization [employer] Address [address] [place] [address] Care Team Providers Care Animal Maintenance Supervisor Name Role Phone Name, Rafiq JENKINS Primary Care Provider [phone] Encounter Details Date Type Department Care Team ([facility] st Contact Info) Description 12/25/2024 Orders Only [facility] External Provider, [facility] Social History Tobacco Use Types Packs/Day Years [...] Description 02/11/2025 11:30 AM EDT Clinical Support [facility] [address] [place] [address] Krysta Huston RN 03/13/2025 10:30 AM EDT Office Visit [facility] [address] [place] [address] Name, MD Rafiq [address] [place] [address] documented as of this encounter Procedures Procedure Name Priority Date/Time Associated Diagnosis Comments MR KNEE WO CONTRAST LEFT Routine 12/25/2024 7:05 PM EST documented in this encounter Results * MR Knee w/o Contrast Left (12/25/2024 7:05 PM EST) Anatomical Region Laterality Modality Magnetic Resonan ce 12/25/2024 7:05 PM EST Narrative 12/26/2024 8:17 AM EST ? [facility] ?[address] ?[place] [address] ? Magnetic Resonance Report ? Signed ? Patient: Deidre Colon,[place] ?MR#: M ?? [id number] ? : 1965 ?Acct:[id number] ? Age/Sex: 59 / M ?ADM Date: 01/30/25 ? Loc: HO.MRI ? Attending : Kristan PETTY ? Ordering Physician: Kristan Oconnell ?? Date of Service: 12/25/24 ?? Procedure(s): MR knee LT wo con ?? Accession Number(s): [id number] ? cc: Kristan Oconnell; Name,Rafiq JENKINS ? [...] ?12/26/24 0814 ? DD/ 1905 ? TD/TT: 12/25/245 ? Historiography Professor: ? Procedure Note Donotuseinterpreter, Image - 12/26/[address] [address] Magnetic Resonance Report Signed Patient: Erick Bejarano#: M [id number] : 1965Acct:[id number] Age/Sex: 59 / MADM Date: 12/25/24 Loc: HO.MRI Attending Dr: Kristan PETTY Ordering Physician: Kristan Oconnell Date of Service: 12/25/24 Procedure(s): MR knee LT wo con Accession Number(s): [id number] cc: Kristan Oconnell; Name,Rafiq JENKINS EXAMINATION: MRI [...] Nicolas Gavin MD 12/26/2024 08:14 AM EST Dictated By: Nicolas Gavin MD Signed By: <Electronically signed by Nicolas Gavin MD in OV> 12/26/24 0814 DD/ 04 TD/TT: 12/25/241924 Historiography Professor: [facility] External Provider IMG MRI PROCEDURES Final Result documented in this encounter Visit Diagnoses Not on filedocumented in this encounter Additional Health Concerns Assessment Noted Time PHQ-9 Depression Total Score: 0 02/05/20 24 2:30 PM EDT documented as of this encounter Care Teams Animal Maintenance Supervisor Relationship Specialty Start Date End Date Name, MD Rafiq [address] [place] [address] PCP - General Family Medicine 12/16/15 documented as of this encounter
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
--- OUTSIDE RECORDS SUMMARY | 2025-01-01 12:02 | XMS_ITS | Encounter Summary ---
Author Organization [facility] Address [address] [place] [address] Care Team Providers Care Accounting Intern Name Role Phone Name, Rafiq JENKINS Primary Care Provider Unavailoj e Rafiq Grace MD Primary Care Provider Unavailabl e Magdalena Coreas BANK RUNNER Unavailable [phone] Mk Rolon MD Unavailable [phone] Encounter Details Date Type Department Care Team Description 07/01/2012 Transfer Records Medical Records [address] [place] [address] Abstract, Provider Social History Tobacco Use Types [...] on filedocumented in this encounter Care Teams Accounting Intern Relationship Specialty Start Date End Date Rafiq Grace MD PCP - General 07/30/08 01/30/16 Rafiq Grace MD PCP - General Internal Medicine 01/31/16 Magdalena Coreas, SELINA Cardiology 04/14/21 Mk Rolon MD [address] [place] [address] [address] [place] [address] Specialist Cardiovascular Disease 04/14/21 documented as of this encounter
--- OUTSIDE RECORDS SUMMARY | 2025-01-01 12:02 | XMS_ITS | Encounter Summary ---
Author Organization [facility] Address [address] [place] [address] Care Team Providers Care Hearing Impaired Teacher Name Role Phone Name, Rafiq JENKINS Primary Care Provider Unavailabl e Rafiq Grace MD Primary Care Provider Unavailabl e Magdalena Coreas NP Unavailable [phone] Mk Rolon MD Unavailable [phone] Reason for Visit * Reason Onset Date Comments refill request 11/07/2013 Encounter Details Date Type Department Care Team Description 11/07/2013 Refill Adult Medicine [address] [address] Name, MD Rafiq refill request Social History [...] encounter Miscellaneous Notes * Telephone Encounter - Prachi Corrigan M.A. - 11/07/2013 10:40 AM EST Controlled substance contract and last issue date of medication reviewed. Patient is due for medication. Component Value Date URINEOXYCOD POSITIVE 02/11/2013 URBENZO NEGATIVE 02/11/2013 URAMPHETAMIN NEGATIVE 02/11/2013 URMARIJUANA NEGATIVE 02/11/2013 UROPIATES NEGATIVE 02/11/2013 URBARBITUATE NEGATIVE 02/11/2013 URCOCAINE NEGATIVE 02/11/2013 METHADONE NONE DETECTED 05/26/2010 HYDROCODONE NOT DETECTED 02/11/2013 * Telephone Encounter - Shaylee Aiken - 11/07/2013 9:32 AM EST Patient would like script to be: E-PRESCRIBED/FAXED TO PHARMACY WHEN WAS THE PATIENT'S LAST APPOINTMENT IN ADULT MEDICINE? 08/14/13 WHEN WAS THE LAST TIME THE PATIENT SAW THEIR PCP? Same as above Does patient have an upcoming appointment? Yes 11/07/14 (THE MEDICATION REQUESTED IS ON THE MED LIST ABOVE) All of the medications requested were on the CURRENT MEDS list Did you check the Pharmacy information above?: NO Patient wants: 30 -day supply Is this a mail order prescription request ? NO Patients current insurance carrier is: Payor: [employer] FFS Plan: FFS HMO $0 [employer]oller [id number] Product Type: MEDICAID RISK documented in this encounter Plan of Treatment Not on file documented as of this encounter Visit Diagnoses Diagnosis Low back pain Lumbago DJD (degenerative joint disease) Osteoarthrosis, unspecified whether generalized or localized, unspecified site Neck pain Cervicalgia documented in this encounter Care Teams Hearing Impaired Teacher Relationship Specialty Start Date End Date Lesly, MD Rafiq PCP - General 07/30/08 01/30/16 Name, MD Rafiq PCP - General Internal Medicine 01/31/16 Magdalena Coreas NP Cardiology 04/14/21 Mk Rolon MD [address] [place] [address] [address] [place] [address] Specialist Cardiovascular Disease 04/14/21 documented as of this encounter
--- OUTSIDE RECORDS SUMMARY | 2025-01-01 12:02 | XMS_ITS | Clinical Summary ---
Author Organization [facility] Address [address] [place] [address] Care Team Providers Care Foreclosure Paralegal Name Role Phone Name, Rafiq JENKINS Primary Care Provider [phone] Surgical History Surgery Date Site/Laterality Comments OTHER SURGICAL HISTORY PROCEDURE: ---- OTHER ----; COMMENT: cardiac cath ESOPHAGOGASTRODUODENOSCOPY 03/28/10 PROCEDURE: WI ESOPHAGOGASTRODUODENOSCOPY TRANSORAL DIAGNOSTIC; COMMENT: normal TONSILLECTOMY PROCEDURE: [...] age to complete this topic Care Teams Foreclosure Paralegal Relationship Specialty Start Date End Date Name, MD Rafiq [address] [place], [place] PCP - General Internal Medicine 07/30/08
--- OUTSIDE RECORDS SUMMARY | 2025-01-01 12:02 | XMS_ITS | Encounter Summary ---
Author Organization [facility] Address [address] [place] [address] Care Team Providers Care Orientation And Mobility Instructor Name Role Phone Name, Rafiq JENKINS Primary Care Provider Unavailoj e Rafiq Grace MD Primary Care Provider Unavailabl e Magdalena Coreas HOOP EXPANDER Unavailable [phone] Mk Rolon MD Unavailable [phone] Encounter Details Date Type Department Care Team Description 11/20/2013 [facility] Adult [address] [address] Name, MD Rafiq Social History Tobacco Use [...] on filedocumented in this encounter Care Teams Orientation And Mobility Instructor Relationship Specialty Start Date End Date Rafiq Grace MD PCP - General 07/30/08 01/30/16 Rafiq Grace MD PCP - General Internal Medicine 01/31/16 Magdalena Coreas NP Cardiology 04/14/21 Mk Rolon MD [address] [place] [address] [address] [place] [address] Specialist Cardiovascular Disease 04/14/21 documented as of this encounter
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
--- OUTSIDE RECORDS SUMMARY | 2025-01-01 12:02 | XMS_ITS | Encounter Summary ---
[facility] Address [address] [place] [address] Care Team Providers Care Waitstaff Captain Name Role Phone Name, Rafiq JENKINS Primary Care Provider Unavailoj e Rafiq Grace MD Primary Care Provider Unavailabl e Magdalena Coreas METAL TUBE CUTTER Unavailable [phone] Mk Rolon MD Unavailable [phone] Encounter Details Date Type Department Care Team Description 11/25/2013 Orders Only Physiatry - [place] [address] [place] [address] Ashley Drew PA-C Social History Tobacco Use Types Packs/Day [...] on filedocumented in this encounter Care Teams Waitstaff Captain Relationship Specialty Start Date End Date Rafiq Grace MD PCP - General 07/30/08 01/30/16 Rafiq Grace MD PCP - General Internal Medicine 01/31/16 Magdalena Coreas NP Cardiology 04/14/21 Mk Rolon MD [address] [place] [address] [address] [place] [address] Specialist Cardiovascular Disease 04/14/21 documented as of this encounter
--- OUTSIDE RECORDS SUMMARY | 2025-01-01 12:02 | XMS_ITS | Encounter Summary ---
Author Organization [facility] Address [address] [place] [address] Care Team Providers Care Physical Therapy Aide Name Role Phone Name, Rafiq JENKINS Primary Care Provider Unavailoj e Rafiq Grace MD Primary Care Provider Unavailabl e Magdalena Coreas QLIKVIEW DEVELOPER Unavailable [phone] Mk Rolon MD Unavailable [phone] Encounter Details Date Type Department Care Team Description 01/16/2013 Revenue Field Auditor Report Medical Records [address] [place] [address] Juanjose Palafox MD Social History Tobacco Use Types Packs/Day [...] on filedocumented in this encounter Care Teams Physical Therapy Aide Relationship Specialty Start Date End Date Rafiq Grace MD PCP - General 07/30/08 01/30/16 Rafiq Grace MD PCP - General Internal Medicine 01/31/16 Magdalena Coreas NP Cardiology 04/14/21 Mk Rolon MD [address] [place] [address] [address] [place] [address] Specialist Cardiovascular Disease 04/14/21 documented as of this encounter
--- OUTSIDE RECORDS SUMMARY | 2025-01-01 12:02 | XMS_ITS | Encounter Summary ---
Author Organization [facility] Address [address] [place] [address] Care Team Providers Care Gas Line Installer Supervisor Name Role Phone NameRafiq MD Primary Care Provider Unavailoj e Rafiq Grace MD Primary Care Provider Unavailabl e Magdalena Coreas SLOT SHIFT SUPERVISOR Unavailable [phone] Mk Rolon MD Unavailable [phone] Encounter Details Date Type Department Care Team Description 01/12/2012 [facility] [address] [address] NameRafiq MD Social History Tobacco Use Types Packs/Day [...] on filedocumented in this encounter Care Teams Gas Line Installer Supervisor Relationship Specialty Start Date End Date Rafiq Grace MD PCP - General 07/30/08 01/30/16 Rafiq Grace MD PCP - General Internal Medicine 01/31/16 Magdalena Coreas NP Cardiology 04/14/21 Mk Rolon MD [address] [place] [address] [address] [place] [address] Specialist Cardiovascular Disease 04/14/21 documented as of this encounter
--- OUTSIDE RECORDS SUMMARY | 2025-01-01 12:02 | XMS_ITS | Encounter Summary ---
Author Organization [employer] [facility] Address [address] [facility] 7t [place] [address] Care Team Providers Care Iron Molder Helper Name Role Phone Name, Rafiq JENKINS Primary Care Provider [phone] Encounter Details Date Type Department Care Team (Late Contact Info) Description 12/29/2022 Abstract [facility] ADULT DENTAL [address] [place] [address] Dario Lynch DDS [address] [place], [place] [phone] Social History Tobacco Use Types Packs/Day Years [...] Description 02/11/2025 11:30 AM EDT Clinical Support [facility] MEDICINE [address] [place] [address] Krysta Huston RN 03/13/2025 10:30 AM EDT Office Visit [facility] [address] [place] [address] Name, MD Rafiq [address] [place] [address] documented as of this encounter Visit Diagnoses Not on filedocumented in this encounter Care Teams Iron Molder Helper Relationship Specialty Start Date End Date Name, MD Rafiq [address] [place] [address] PCP - General Family Medicine 12/16/15 documented as of this encounter
--- OUTSIDE RECORDS SUMMARY | 2025-01-01 12:02 | XMS_ITS | Encounter Summary ---
Author Organization [facility] Address [address] [place] [address] 7t [place] [address] Care Team Providers Care Hot End Operator Name Role Phone Name, Rafiq JENKINS Primary Care Provider [phone] Encounter Details Date Type Department Care Team (Late Contact Info) Description 04/27/2023 Abstract [facility] MEDICINE [address] [place] [address] [phone] Name, MD Rafiq [address] [place] [address] [phone] Social History Tobacco Use Types Packs/Day Years [...] Description 02/11/2025 11:30 AM EDT Clinical Support [facility] MEDICINE [address] [place] [address] Krysta Huston RN 03/13/2025 10:30 AM EDT Office Visit [facility] MEDICINE [address] [place] [address] Name, MD Rafiq [address] [place] [address] documented as of this encounter Procedures Procedure [...] on filedocumented in this encounter Care Teams Hot End Operator Relationship Specialty Start Date End Date Name, MD Rafiq [address] [place] [address] PCP - General Family Medicine 12/16/15 documented as of this encounter
--- OUTSIDE RECORDS SUMMARY | 2025-01-01 12:02 | XMS_ITS | Encounter Summary ---
Author Organization [facility] Address [address] [place] [address] Care Team Providers Care Reverse Logistics Analyst Name Role Phone Name, Rafiq JENKINS Primary Care Provider Unavailoj e Rafiq Grace MD Primary Care Provider Unavailabl e Magdalena Coreas PNEUMATIC TUBE OPERATOR Unavailable [phone] Mk Rolon MD Unavailable [phone] Encounter Details Date Type Department Care Team Description 08/18/2014 Central Supply Worker Report Medical Records [address] [place] [address] Violet Swanson MD Social History Tobacco Use Types Packs/Day Years Used Date Smoking Tobacco: Every Day Cigarettes 1.5 25 Smokeless Tobacco: Never Comments:has started smoking again 4-6 cigarettes a day Alcohol Use Standard Drinks/Week Comments No 0 (1 standard drink = 0.6 oz pur e alcohol) Sex Assigned at Date Recorded Not on file documented as of this encounter Plan of Treatment Not on file documented as of this encounter Visit Diagnoses Not on filedocumented in this encounter Care Teams Reverse Logistics Analyst Relationship Specialty Start Date End Date Rafiq Grace MD PCP - General 07/30/08 01/30/16 Rafiq Grace MD PCP - General Internal Medicine 01/31/16 Magdalena Coreas NP Cardiology 04/14/21 Mk Rolon MD [address] [place] [address] [address] [place] [address] Specialist Cardiovascular Disease 04/14/21 documented as of this encounter
--- OUTSIDE RECORDS SUMMARY | 2025-01-01 12:02 | XMS_ITS | Encounter Summary ---
Author Organization [facility] Address [address] [place] [address] Care Team Providers Care Refrigeration Repair Supervisor Name Role Phone Name, Rafiq JENKINS Primary Care Provider Unavailoj e Rafiq Grace MD Primary Care Provider Unavailabl e Magdalena Coreas RAILROAD DISPATCHER Unavailable [phone] Mk Rolon MD Unavailable [phone] Encounter Details Date Type Department Care Team Description 02/18/2013 Accounting Generalist Report Medical Records [address] [place] [address] Heather Renner MD Social History Tobacco Use [...] on filedocumented in this encounter Care Teams Refrigeration Repair Supervisor Relationship Specialty Start Date End Date Rafiq Grace MD PCP - General 07/30/08 01/30/16 Rafiq Grace MD PCP - General Internal Medicine 01/31/16 Magdalena Coreas NP Cardiology 04/14/21 Mk Rolon MD [address] [place] [address] [address] [place] [address] Specialist Cardiovascular Disease 04/14/21 documented as of this encounter
--- OUTSIDE RECORDS SUMMARY | 2025-01-01 12:02 | XMS_ITS | Encounter Summary ---
Author Organization [employer] Address [address] [facility] 7t [place] [address] Care Team Providers Care Soil Conservation Teacher Name Role Phone Name, Rafiq JENKINS Primary Care Provider [phone] Reason for Visit * Reason Onset Date Comments Med Refill 06/12/2024 Encounter Details Date Type Department Care Team ([facility] st Contact Info) Description 06/12/2024 Telephone [facility] MEDICINE [address] [place], [place] [phone] Name, MD Rafiq [address] [place] [address] Med Refill Social History Tobacco Use Types [...] PM EDT Mass pat checked and meds. [facility] for approval. * Telephone Encounter - Rah Ferrer - 06/12/2024 9:30 AM EDT TC from pt requesting medication refill. Medications needing refill : oxyCODONE-acetaminophen (Percocet) 5-325 MG tablet To be sent to: [id number] AT [facility] documented in this encounter Plan of Treatment Upcoming Encounters Date Type Department Care Team (Late st Contact Info) Description 02/11/2025 11:30 AM EDT Clinical Support [facility] MEDICINE [address] [place] [address] Krysta Huston RN 03/13/2025 10:30 AM EDT Office Visit [facility] MEDICINE [address] [place] [address] Name, MD Rafiq [address] [place] [address] documented as of this encounter Visit Diagnoses Not on filedocumented in this encounter Additional Health Concerns Assessment Noted Time PHQ-9 Depression Total Score: 0 02/05/20 24 2:30 PM EDT documented as of this encounter Care Teams Soil Conservation Teacher Relationship Specialty Start Date End Date Name, MD Rafiq [address] [place] [address] PCP - General Family Medicine 12/16/15 documented as of this encounter
--- OUTSIDE RECORDS SUMMARY | 2025-01-01 12:02 | XMS_ITS | Encounter Summary ---
Author Organization [employer] Address [address] [facility] [place] [address] Care Team Providers Care Food Service Supervisor Name Role Phone Name, Rafiq JENKINS Primary Care Provider [phone] Reason for Visit * Reason Comments Med Refill Encounter Details Date Type Department Care Team ([facility] st Contact Info) Description 12/31/2024 Refill [facility] MEDICINE [address] [place], [place] [phone] Latosha Car MD [address] [place], [place] [phone] Mild intermittent asthma, unspecified whether complicated Social [...] Description 02/11/2025 11:30 AM EDT Clinical Support [address] [address] Krysta Huston RN 03/13/2025 10:30 AM EDT Office Visit [address] [address] Name, MD Rafiq [address] [place] [address] documented as of this encounter Visit Diagnoses Diagnosis Mild intermittent asthma, unspecified whether complicated documented in this encounter Additional Health Concerns Assessment Noted Time PHQ-9 Depression Total Score: 0 02/05/20 24 2:30 PM EDT documented as of this encounter Care Teams Food Service Supervisor Relationship Specialty Start Date End Date Name, MD Rafiq [address] [place] [address] PCP - General Family Medicine 12/16/15 documented as of this encounter
--- OUTSIDE RECORDS SUMMARY | 2025-01-01 12:02 | XMS_ITS | Encounter Summary ---
Author Organization [facility] Address [address] [place] [address] Care Team Providers Care Wire Winder Name Role Phone Name, Rafiq JENKINS Primary Care Provider Unavailoj e Rafiq Grace MD Primary Care Provider Unavailabl e Magdalena Coreas ORNAMENTAL METALWORK DESIGNER Unavailable [phone] Mk Rloon MD Unavailable [phone] Encounter Details Date Type Department Care Team Description 09/30/2010 Hospital Medical Records [address] [place] [address] Joseestephanie Prachi Social History Tobacco Use Types Packs/Day Years [...] on filedocumented in this encounter Care Teams Wire Winder Relationship Specialty Start Date End Date Rafiq Grace MD PCP - General 07/30/08 01/30/16 Rafiq Grace MD PCP - General Internal Medicine 01/31/16 Magdalena Coreas NP Cardiology 04/14/21 Mk Rolon MD [address] [place] [address] [address] [place] [address] Specialist Cardiovascular Disease 04/14/21 documented as of this encounter
--- OUTSIDE RECORDS SUMMARY | 2025-01-01 12:02 | XMS_ITS | Encounter Summary ---
Author Organization [facility] Address [address] [place] [address] Care Team Providers Care Major Gifts Manager Name Role Phone Name, Rafiq JENKINS Primary Care Provider Unavailabl e Name, Rafiq JENKINS Primary Care Provider Unavailabl e Magdalena Coreas NP Unavailable [phone] Mk Rolon MD Unavailable [phone] Reason for Visit * Reason Onset Date Comments Provider Call Back 09/20/2012 Encounter Details Date Type Department Care Team Description 09/20/2012 Telephone Physiatry - [address] [address] Olivier Rose DO Provider Call Back Social [...] on filedocumented in this encounter Care Teams Major Gifts Manager Relationship Specialty Start Date End Date Name, MD Rafiq PCP - General 07/30/08 01/30/16 Name, MD Rafiq PCP - General Internal Medicine 01/31/16 Magdalena Coreas NP Cardiology 04/14/21 Mk Rolon MD [address] [place] [address] [address] [place] [address] Specialist Cardiovascular Disease 04/14/21 documented as of this encounter
--- OUTSIDE RECORDS SUMMARY | 2025-01-01 12:02 | XMS_ITS | Encounter Summary ---
Author Organization [employer] [facility] Address [address] [place] [address] Care Team Providers Care Driller Helper Name Role Phone Name, Rafiq JENKINS Primary Care Provider Unavailoj e Rafiq Grace MD Primary Care Provider Unavailabl e Magdalena Coreas HOUSE PRINCIPAL Unavailable [phone] Mk Rolon MD Unavailable [phone] Encounter Details Date Type Department Care Team Description 02/27/2012 Hospital Medical Records [address] [place] [address] Keny Rodriguez MD Social History Tobacco Use [...] on filedocumented in this encounter Care Teams Driller Helper Relationship Specialty Start Date End Date Rafiq Grcae MD PCP - General 07/30/08 01/30/16 Rafiq Grace MD PCP - General Internal Medicine 01/31/16 Magdalena Coreas NP Cardiology 04/14/21 Mk Rolon MD [address] [place] [address] [address] [place] [address] Specialist Cardiovascular Disease 04/14/21 documented as of this encounter
--- OUTSIDE RECORDS SUMMARY | 2025-01-01 12:03 | XMS_ITS | Encounter Summary ---
Author Organization [facility] Address [address] [place] [address] Care Team Providers Care Television Installer Name Role Phone Name, Rafiq JENKINS Primary Care Provider Magdalena Esteban BULK STATION OPERATOR Unavailable [phone] Mk Rolon MD Unavailable [phone] Encounter Details Date Type Department Care Team Description 11/19/2016 Hospital Medical Records [address] [place] [address] Alberto Loera MD [address] [place] [address] Social History Tobacco Use Types Packs/Day Years [...] on filedocumented in this encounter Care Teams Television Installer Relationship Specialty Start Date End Date Name, MD Rafiq PCP - General Internal Medicine 01/31/16 Magdalena Coreas NP Cardiology 04/14/21 Mk Rolon MD [address] [place] [address] [address] [place] [address] Specialist Cardiovascular Disease 04/14/21 documented as of this encounter
--- OUTSIDE RECORDS SUMMARY | 2025-01-01 12:03 | XMS_ITS | Encounter Summary ---
Author Organization [facility] Address [address] [place] [address] Care Team Providers Care Dining Services Manager Name Role Phone Name, Rafiq JENKINS Primary Care Provider Magdalena Esteban MANAGER PROTEIN Unavailable [phone] Mk Rolon MD Unavailable [phone] Encounter Details Date Type Department Care Team Description 11/18/2016 [facility] Medical Records [address] [place] [address] Social History Tobacco Use Types Packs/Day Years [...] on filedocumented in this encounter Care Teams Dining Services Manager Relationship Specialty Start Date End Date Name, MD Rafiq PCP - General Internal Medicine 01/31/16 Magdalena Coreas, SELINA Cardiology 04/14/21 Mk Rolon MD [address] [place] [address] [address] [place] [address] Specialist Cardiovascular Disease 04/14/21 documented as of this encounter
--- OUTSIDE RECORDS SUMMARY | 2025-01-01 12:03 | XMS_ITS | Encounter Summary ---
Author Organization [facility] Address [address] [place] [address] Care Team Providers Care Cancer Registry Coordinator Name Role Phone Name, Rafiq JENKINS Primary Care Provider Unavailabl e Name, Rafiq JENKINS Primary Care Provider Unavailabl e Magdalena Coreas NP Unavailable [phone] Mk Rolon MD Unavailable [phone] Reason for Visit * Reason Onset Date Comments REFERRAL 05/14/2014 Encounter Details Date Type Department Care Team Description 05/14/2014 Telephone Urology [address] [place] [address] Alan Garcia MD REFERRAL Social History Tobacco [...] uti Priority: within 2-3 weeks Payor: Not third-democrat related No appts within time frame, please advise. documented in this encounter Plan of Treatment Not on file documented as of this encounter Visit Diagnoses Not on filedocumented in this encounter Care Teams Cancer Registry Coordinator Relationship Specialty Start Date End Date Name, MD Rafiq PCP - General 07/30/08 01/30/16 Name, MD Rafiq PCP - General Internal Medicine 01/31/16 Magdalena Coreas NP Cardiology 04/14/21 Mk Rolon MD [address] [place] [address] [place] [address] Specialist Cardiovascular Disease 04/14/21 documented as of this encounter
--- OUTSIDE RECORDS SUMMARY | 2025-01-01 12:03 | XMS_ITS | Encounter Summary ---
Author Organization [facility] Address [address] [place] [address] Care Team Providers Care Good Humor Vendor Name Role Phone Name, Rafiq JENKINS Primary Care Provider UnavailMagdalena Dalton VAULT MECHANIC Unavailable [phone] Mk Rolon MD Unavailable Encounter Details Date Type Department Care Team Description 05/29/2017 [facility] Medical Records [address] [place] [address] Ethan Mcnamara PA-C Social History Tobacco Use [...] on filedocumented in this encounter Care Teams Good Humor Vendor Relationship Specialty Start Date End Date Name, MD Rafiq PCP - General Internal Medicine 01/31/16 Magdalena Coreas NP Cardiology 04/14/21 Mk Rolon MD [address] [place] [address] [address] [place] [address] Specialist Cardiovascular Disease 04/14/21 documented as of this encounter
--- OUTSIDE RECORDS SUMMARY | 2025-01-01 12:03 | XMS_ITS | Encounter Summary ---
Author Organization [facility] Address [address] [place] [address] 7 [place] [address] Care Team Providers Care Assembler Body Name Role Phone Name, Rafiq JENKINS Primary Care Provider [phone] Reason for Visit * Reason Comments Med Refill Encounter Details Date Type Department Care Team (Late st Contact Info) Description 08/03/2023 Refill [facility] MED[facility]INE [address] [place] [address] [phone] Name, MD Rafiq [address] [place] [address] Social History Tobacco Use Types Packs/Day Years [...] Description 02/11/2025 11:30 AM EDT Clinical Support [address] [phone] Krysta Huston RN 03/13/2025 10:30 AM EDT Office Visit [address] [address] Name, MD Rafiq [address] [place] [address] documented as of this encounter Visit Diagnoses Not on filedocumented in this encounter Care Teams Assembler Body Relationship Specialty Start Date End Date Name, MD Rafiq [address] [place] [address] PCP - General Family Medicine 12/16/15 documented as of this encounter
--- OUTSIDE RECORDS SUMMARY | 2025-01-01 12:03 | XMS_ITS | Encounter Summary ---
Author Organization [facility] Address [address] [place] [address] Care Team Providers Care Desk Director Name Role Phone Name, Rafiq JENKINS Primary Care Provider Magdalena Esteban NP Unavailable [phone] Mk Rolon MD Unavailable [phone] Reason for Visit * Reason Onset Date Comments Prior Authorization 11/23/2016 Encounter Details Date Type Department Care Team Description 11/23/2016 Telephone Cardiology - [address] [phone] Nga Aguirre PA-C [address] [place] [address] Prior Authorization Social History Tobacco Use Types [...] from auth dept received call back from [facility]. They have gotten an authorization # for the echocardiogram. Auth # [id number] 12/07/16 - 12/07/17 * Telephone Encounter - Nazia Moran - 12/07/2016 1:53 PM EST Received call back from [facility]. They have gotten an authorization # for the echocardiogram. Auth # [id number] 12/07/16 - 12/07/17 * Telephone Encounter - [...] 12/07/2016 1:30 PM EST Patient now has [facility] and needs a prior auth. Still has Dr. Conroy Name as PCP. He is now at [facility]. Called [facility] to acquire authorization. Had to leave a [...] on filedocumented in this encounter Care Teams Desk Director Relationship Specialty Start Date End Date Name, MD Rafiq PCP - General Internal Medicine 01/31/16 Magdalena Coreas NP Cardiology 04/14/21 Mk Rolon MD [address] [place] [address] [place] [address] Specialist Cardiovascular Disease 04/14/21 documented as of this encounter
--- OUTSIDE RECORDS SUMMARY | 2025-01-01 12:03 | XMS_ITS | Encounter Summary ---
Author Organization [facility] Address [address] [place] [address] Care Team Providers Care Card Stripper Name Role Phone Name, Rafiq JENKINS Primary Care Provider Magdalena Esteban PULPING MACHINE OPERATOR Unavailable [phone] Mk Rolon MD Unavailable [phone] Encounter Details Date Type Department Care Team Description 02/17/2016 Release of Information Medical Records [address] [place] [address] Abstract, Provider Social History Tobacco Use Types [...] on filedocumented in this encounter Care Teams Card Stripper Relationship Specialty Start Date End Date Name, MD Rafiq PCP - General Internal Medicine 01/31/16 Magdalena Coreas, SELINA Cardiology 04/14/21 Mk Rolon MD [address] [place] [address] [address] [place] [address] Specialist Cardiovascular Disease 04/14/21 documented as of this encounter
--- OUTSIDE RECORDS SUMMARY | 2025-01-01 12:03 | XMS_ITS | Encounter Summary ---
Author Organization [employer] [facility] Address [address] [place] [address] 7t [place] [address] Care Team Providers Care Air And Hydronic Balancing Technician Name Role Phone Name, Rafiq JENKINS Primary Care Provider [phone] Reason for Visit * Reason Comments Med Refill Encounter Details Date Type Department Care Team (Late Contact Info) Description 06/03/2023 Refill [facility] [address] [place], [place] [phone] Sabine Boyd MD [address] [place], [place] [phone] Tobacco use disorder, continuous Social History Tobacco [...] Description 02/11/2025 11:30 AM EDT Clinical Support [address] [address] Krysta Huston, LUCAS 03/13/2025 10:30 AM EDT Office Visit [address] [address] Name, MD Rafiq [address] [place] [address] documented as of this encounter Visit Diagnoses Diagnosis Tobacco use disorder, continuous Tobacco use disorder documented in this encounter Care Teams Air And Hydronic Balancing Technician Relationship Specialty Start Date End Date Name, MD Rafiq [address] [place] [address] PCP - General Family Medicine 12/16/15 documented as of this encounter
--- OUTSIDE RECORDS SUMMARY | 2025-01-01 12:03 | XMS_ITS | Encounter Summary ---
Author Organization [employer] Address [address] [facility] 7t [place] [address] Care Team Providers Care Bolt Machine Operator Name Role Phone Name, Rafiq JENKINS Primary Care Provider [phone] Reason for Visit * Reason Onset Date Comments No Show 12/04/2024 Encounter Details Date Type Department Care Team ([facility] Contact Info) Description 12/04/2024 Telephone [facility]INE [address] [place], [place] [phone] Name, MD Rafiq [address] [place] [address] No Show Social History Tobacco Use Types [...] Description 02/11/2025 11:30 AM EDT Clinical Support [facility] MED[facility]INE [address] [place] [address] Krysta Huston RN 03/13/2025 10:30 AM EDT Office Visit [facility]INE [address] [place] [address] Name, MD Rafiq [address] [place] [address] documented as of this encounter Visit Diagnoses Not on filedocumented in this encounter Additional Health Concerns Assessment Noted Time PHQ-9 Depression Total Score: 0 02/05/20 24 2:30 PM EDT documented as of this encounter Care Teams Bolt Machine Operator Relationship Specialty Start Date End Date NameRafiq MD [address] [place] [address] PCP - General Family Medicine 12/16/15 documented as of this encounter
--- OUTSIDE RECORDS SUMMARY | 2025-01-01 12:03 | XMS_ITS | Encounter Summary ---
Author Organization [facility] Address [address] [place] [address] 7t [place] [address] Care Team Providers Care Insurance Checker Name Role Phone Name, Rafiq JENKINS Primary Care Provider [phone] Reason for Visit * Reason Comments Med Refill Encounter Details Date Type Department Care Team (Late Contact Info) Description 03/13/2023 Refill [facility] MED[facility]INE [address] [place], [place] [phone] Sabine Boyd MD [address] [place], [place] [phone] Social History Tobacco Use Types Packs/Day Years [...] Description 02/11/2025 11:30 AM EDT Clinical Support [address] [address] Krysta Huston, LUCAS 03/13/2025 10:30 AM EDT Office Visit [address] [address] Name, MD Rafiq [address] [place] [address] documented as of this encounter Visit Diagnoses Not on filedocumented in this encounter Care Teams Insurance Checker Relationship Specialty Start Date End Date Name, MD Rafiq [address] [place] [address] PCP - General Family Medicine 12/16/15 documented as of this encounter
--- OUTSIDE RECORDS SUMMARY | 2025-01-01 12:03 | XMS_ITS | Encounter Summary ---
Author Organization [employer] [facility] Address [address] [place] [address] 7t [place] [address] Care Team Providers Care Assistant Chief Nursing Officer Name Role Phone Name, Rafiq JENKINS Primary Care Provider [phone] Reason for Visit * Reason Comments Med Refill Encounter Details Date Type Department Care Team (Late Contact Info) Description 06/07/2023 Refill [facility] [address] [place], [place] [phone] Name, MD Rafiq [address] [place] [address] Tobacco use disorder, continuous Social History Tobacco [...] Description 02/11/2025 11:30 AM EDT Clinical Support [address] [address] Krysta Huston, RN 03/13/2025 10:30 AM EDT Office Visit [address] [address] Name, MD Rafiq [address] [place] [address] documented as of this encounter Visit Diagnoses Diagnosis Tobacco use disorder, continuous Tobacco use disorder documented in this encounter Care Teams Assistant Chief Nursing Officer Relationship Specialty Start Date End Date Name, MD Rafiq [address] [place] [address] PCP - General Family Medicine 12/16/15 documented as of this encounter
--- OUTSIDE RECORDS SUMMARY | 2025-01-01 12:03 | XMS_ITS | Encounter Summary ---
Author Organization [employer] Address [address] [facility] 7t [place] [address] Care Team Providers Care Plastic Cutter Name Role Phone Name, Rafiq JENKINS Primary Care Provider [phone] Reason for Visit * Reason Onset Date Comments Med Refill 12/05/2024 Encounter Details Date Type Department Care Team ([facility] st Contact Info) Description 12/05/2024 Refill [facility] [address] [place], [place] [phone] Name, MD Rafiq [address] [place], [place] [phone] Mild intermittent asthma, unspecified whether complicated Social [...] MG EC tablet To be sent to: [facility]/pharmacy #[id number] [place] [address] [facility] [facility] documented in this encounter Plan of Treatment Upcoming Encounters Date Type Department Care Team (Late st Contact Info) Description 02/11/2025 11:30 AM EDT Clinical Support [facility] MEDICINE [address] [place] [address] Krysta Huston RN 03/13/2025 10:30 AM EDT Office Visit [facility] [address] [place] [address] Name, MD Rafiq [address] [place] [address] documented as of this encounter Visit Diagnoses Diagnosis Mild intermittent asthma, unspecified whether complicated documented in this encounter Additional Health Concerns Assessment Noted Time PHQ-9 Depression Total Score: 0 02/05/20 24 2:30 PM EDT documented as of this encounter Care Teams Plastic Cutter Relationship Specialty Start Date End Date Name, MD Rafiq [address] [place] [address] PCP - General Family Medicine 12/16/15 documented as of this encounter
--- OUTSIDE RECORDS SUMMARY | 2025-01-01 12:03 | XMS_ITS | Encounter Summary ---
Author Organization [employer] Address 75 [facility] 7t [place] [address] Care Team Providers Care Barn Boss Name Role Phone Name, Rafiq JENKINS Primary Care Provider [phone] Reason for Visit * Reason Onset Date Comments Med Refill 12/05/2024 Encounter Details Date Type Department Care Team ([facility] st Contact Info) Description 12/05/2024 Refill [facility] [address] [place], [place] [phone] Name, MD Rafiq [address] [place], [place] [phone] Chronic low back pain, unspecified back pain [...] 5-325 MG tablet To be sent to: [facility]/pharmacy #[id number] [facility] documented in this encounter Plan of Treatment Upcoming Encounters Date Type Department Care Team (Late st Contact Info) Description 02/11/2025 11:30 AM EDT Clinical Support [facility] MED[facility]INE [address] [place] [address] Krysta Huston RN 03/13/2025 10:30 AM EDT Office Visit [facility] [address] [place] [address] Name, MD Rafiq [address] [place] [address] documented as of this encounter Visit Diagnoses Diagnosis Chronic low back pain, unspecified back pain laterality, unspecified whether sciatica present documented in this encounter Additional Health Concerns Assessment Noted Time PHQ-9 Depression Total Score: 0 02/05/20 24 2:30 PM EDT documented as of this encounter Care Teams Barn Boss Relationship Specialty Start Date End Date Rafiq Grace MD [address] [place] [address] PCP - General Family Medicine 12/16/15 documented as of this encounter
--- OUTSIDE RECORDS SUMMARY | 2025-01-01 12:03 | XMS_ITS | Encounter Summary ---
Author Organization [employer] [facility] Address [address] [place] [address] Care Team Providers Care Drill Sergeant Name Role Phone Name, Rafiq JENKINS Primary Care Provider Magdalena Esteban NP Unavailable [phone] Mk Rolon MD Unavailable [phone] Encounter Details Date Type Department Care Team Description 02/21/2021 Hospital Medical Records [address] [place] [address] Social History Tobacco Use Types Packs/Day Years [...] on filedocumented in this encounter Care Teams Drill Sergeant Relationship Specialty Start Date End Date Name, MD Rafiq PCP - General Internal Medicine 01/31/16 Magdalena Coreas NP Cardiology 04/14/21 Mk Rolon MD [address] [place] [address] [place] [address] Specialist Cardiovascular Disease 04/14/21 documented as of this encounter
--- OUTSIDE RECORDS SUMMARY | 2025-01-01 12:03 | XMS_ITS | Encounter Summary ---
Author Organization [employer] Address [address] [facility] 7t [place] [address] Care Team Providers Care Cms Expert Name Role Phone Name, Rafiq JENKINS Primary Care Provider [phone] Reason for Visit * Reason Onset Date Comments Recommend POLITICAL ANALYST Tier 2 12/17/2024 Encounter Details Date Type Department Care Team ([facility] st Contact Info) Description 12/17/2024 Telephone [facility] [address] [place], [place] [phone] Krysta Huston, LUCAS Recommend POLITICAL ANALYST Tier 2 Social History Tobacco Use Types [...] RN - 12/17/2024 7:36 AM EST What POLITICAL ANALYST Tier would you like this patient to be? I recommend Tier 2, please let me know if you agree or would rather patient be in another POLITICAL ANALYST Tier. Tier 1 = HIGH RISK, Monthly POLITICAL ANALYST visits Tier 2 = MODerate RISK, Q3 Month visits Tier 3 = LOW RISK = Q4-6 month visits documented in this encounter Plan of Treatment Upcoming Encounters Date Type Department Care Team (Late st Contact Info) Description 02/11/2025 11:30 AM EDT Clinical Support [facility] [address] [place] [address] Krysta Huston RN 03/13/2025 10:30 AM EDT Office Visit [facility] [address] [place] [address] NameRafiq MD [address] [place] [address] documented as of this encounter Visit Diagnoses Not on filedocumented in this encounter Additional Health Concerns Assessment Noted Time PHQ-9 Depression Total Score: 0 02/05/20 24 2:30 PM EDT documented as of this encounter Care Teams Cms Expert Relationship Specialty Start Date End Date Rafiq Grace MD [address] [place] [address] PCP - General Family Medicine 12/16/15 documented as of this encounter
--- OUTSIDE RECORDS SUMMARY | 2025-01-01 12:03 | XMS_ITS | Encounter Summary ---
Author Organization [employer] Address [address] [facility] 7t [place] [address] Care Team Providers Care Train Starter Name Role Phone Name, Rafiq JENKINS Primary Care Provider [phone] Reason for Visit * Reason Comments Med Change Request Encounter Details Date Type Department Care Team ([facility] st Contact Info) Description 09/24/2023 Refill [facility] [address] [place], [place] [phone] Name, MD Rafiq [address] [place], [place] [phone] Social History Tobacco Use Types Packs/Day Years [...] Description 02/11/2025 11:30 AM EDT Clinical Support [address] [address] Krysta Huston RN 03/13/2025 10:30 AM EDT Office Visit [address] [address] Name, MD Rafiq [address] [place] [address] documented as of this encounter Visit Diagnoses Not on filedocumented in this encounter Care Teams Train Starter Relationship Specialty Start Date End Date Name, MD Rafiq [address] [place] [address] PCP - General Family Medicine 12/16/15 documented as of this encounter
--- OUTSIDE RECORDS SUMMARY | 2025-01-01 12:03 | XMS_ITS | Encounter Summary ---
Author Organization [facility] Address [address] [facility] 7t [place] [address] Care Team Providers Care Clam Shovel Operator Name Role Phone Name, Rafiq JENKINS Primary Care Provider [phone] Reason for Visit * Reason Comments CALENDER OPERATOR HELPER RV CALENDER OPERATOR HELPER RV Encounter Details Date Type Department Care Team (Latest Contact Info) Description 12/17/2024 11:30 AM EST Clinical Support [facility]ICINE [address] [place] [address] Krysta Huston RN Chronic pain syndrome (Primary [...] 11:30 AM EST S: Pt here for CALENDER OPERATOR HELPER Revisit. Prescribed Percocet 5mg Q6hr PRN. States [...] Pt currently prescribed Percocet 5mg Q6hr PRN. ADULT EDUCATION PROFESSIONAL verified today. Rx last filled on12/06/24. Pill [...] medication. Last PCP visit was 10/15/24. A: CALENDER OPERATOR HELPER Contract Revisit: Chronic Opioid use related to pain. P: Pt to continue taking medication only as prescribed; Next CALENDER OPERATOR HELPER Renewal appointment scheduled for 02/11/25 @ 11:30am, F/U sooner PRN. Appointment reminder given. Pt verbalized understanding and agreed to plan. documented in this encounter Plan of Treatment Upcoming Encounters Date Type Department Care Team (Late st Contact Info) Description 02/11/2025 11:30 AM EDT Clinical Support [address] [address] Krysta Huston RN 03/13/2025 10:30 AM EDT Office Visit [address] [address] Rafiq Grace MD [address] [place] [address] documented as of this encounter Procedures Procedure [...] - 12/17/2024 11:37 AM EST [employer] cup Lot#[id number] Exp. 08/20/26 Internal Pass Control Rafiq Grace MD POINT OF CARE TEST ENTER/EDIT OR DERABLES Final Result documented in this encounter Visit Diagnoses Diagnosis Chronic pain syndrome- Primary documented in this encounter Additional Health Concerns Assessment Noted Time PHQ-9 Depression Total Score: 0 02/05/20 24 2:30 PM EDT documented as of this encounter Care Teams Clam Shovel Operator Relationship Specialty Start Date End Date Rafiq Grace, MD [address] [place] [address] PCP - General Family Medicine 12/16/15 documented as of this encounter
--- OUTSIDE RECORDS SUMMARY | 2025-01-01 12:03 | XMS_ITS | Encounter Summary ---
Author Organization [facility] Address [address] [place] [address] Care Team Providers Care Blind Installer Name Role Phone Name, Rafiq JENKINS Primary Care Provider Magdalena Esteban SURVEY RESEARCHER Unavailable [phone] Mk Rolon MD Unavailable [phone] Encounter Details Date Type Department Care Team Description 02/25/2021 [facility] Medical Records [address] [place] [address] Social History Tobacco Use Types Packs/Day Years [...] on filedocumented in this encounter Care Teams Blind Installer Relationship Specialty Start Date End Date Name, MD Rafiq PCP - General Internal Medicine 01/31/16 Magdalena Coreas, SELINA Cardiology 04/14/21 Mk Rolon MD [address] [place] [address] [address] [place] [address] Specialist Cardiovascular Disease 04/14/21 documented as of this encounter
--- OUTSIDE RECORDS SUMMARY | 2025-01-01 12:03 | XMS_ITS | Encounter Summary ---
Author Organization [facility] Address [address] [place] [address] Care Team Providers Care Compliance Aide Name Role Phone Name, Rafiq JENKINS Primary Care Provider Unavailoj e Rafiq Grace MD Primary Care Provider Unavailabl e Magdalena Coreas MOTOR SCOOTER MECHANIC Unavailable [phone] Mk Rolon MD Unavailable [phone] Encounter Details Date Type Department Care Team Description 07/16/2014 Hospital Medical Records [address] [place] [address] Lynette Nathan MD Social History Tobacco Use Types Packs/Day [...] on filedocumented in this encounter Care Teams Compliance Aide Relationship Specialty Start Date End Date Rafiq Grace MD PCP - General 07/30/08 01/30/16 Rafiq Grace MD PCP - General Internal Medicine 01/31/16 Magdalena Coreas NP Cardiology 04/14/21 Mk Rolon MD [address] [place] [address] [address] [place] [address] Specialist Cardiovascular Disease 04/14/21 documented as of this encounter
--- NOTE | 2025-01-01 12:39 | P.HPSUR_ITS ---
Pre-Procedural Eval Section A - 24 Hr Update-Section A only Date of Service: 01/01/25 The patient is an INPATIENT: No Changes since office visit: No Cold of Flu in the past 2 weeks, No New Medical Problems, No Changes in Medication and No Patient answered all questions The patient has been examined within 24 hours of the surgical procedure. The History & Physical has been completed within 30 days and I have reviewed it.: Yes Section B - Complete if H&P > 30 days Chief Complaint: Carpal tunnel syndrome, right upper limb Allergies: Allergies Allergy/AdvReac Type Severity Reaction Status Date / Time naproxen AdvReac Intermediate kidney Verified 12/23/24 11:07 problems, hematuria ibuprofen AdvReac hematuria Verified 12/23/24 11:07 Plan Diagnosis/Plan: Unchanged I have reviewed the history and physical and performed a pertinent physical examination on my patient. No changes have occurred unless specified. Time Spent With Patient Time: Total time managing care of this patient today ____ minutes.
--- NOTE | 2025-01-01 12:39 | P.OP_ITS ---
Operative Note Operative Note Date of Service: 01/01/25 Narrative: Preop diagnosis: 1. Right Carpal tunnel syndrome Postop diagnosis: same Procedure: 1. Right Carpal tunnel release Surgeon: Halle Ventura MD Hose Inspector: Nicolas CIFUENTES Anesthesia: local block using 1% lidocaine with epinephrine Findings: Thickened transverse carpal ligament. EBL: Less than 5 mL Specimens: None Complications: None Disposition: Brought to recovery room in stable condition Plan: Follow-up for 10-14 days for wound check and suture removal We sent him with a 3 day course of antibiotics as a precaution. 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 Indications: The patient is 59 years old, with right carpal tunnel syndrome that has been unresponsive to nonoperative management. The risks and benefits o f operative treatment including but not limited to risk of damage to blood vessels, nerves, tendons, infection, persistent pain, persistent symptoms, or possible need for additional surgery were discussed with the patient and the patient wishes to proceed with surgery. Procedure: Once consent was obtained a local block was performed using a combination of 1% lidocaine with epinephrine. The patient was then brought back to the operating suite and placed on the operative table in supine position. The right upper extremity was prepped and draped in a standard surgical fashion. Once assured that we had a good block, a 2.0 cm longitudinal incision was made centered over the carpal tunnel. The incision was made through the skin to the subcutaneous tissues using a #15 blade. Dissection was made down to the level of the transverse carpal ligament with care being taken to protect the palmar cutaneous nerve. Once the transverse carpal ligament was clearly visualized, a longitudinal incision was made in the transverse carpal ligament 1st using a #15 blade, then using tenotomy scissors under direct visualization. Care was taken to look for and protect the motor branch of the median nerve when seen in this area. Once satisfied with our carpal tunnel release the wound was copiously irrigated with normal saline and hemostasis was obtained with a brief period of local pressure. The skin edges were reapproximated with some 5.0 nylon suture material and a sterile dressing was applied. The patient appears to have tolerated the procedure well and with no complications. All digits were well vascularized at the conclusion of the case.
== END | disposition home or self-care (01) ==
PROVIDERS: PCP Internal Medicine Geriatric Medicine; Visit Provider Orthopaedic Surgery
PROC: (CPT 64721; principal; 2025-01-01 13:30)
DX: G56.01 Carpal tunnel syndrome, right upper limb (principal); R20.0 Anesthesia of skin; R20.2 Paresthesia of skin; M79.7 Fibromyalgia; I10 Essential (primary) hypertension; I25.10 Atherosclerotic heart disease of native coronary artery without angina pectoris; Z95.5 Presence of coronary angioplasty implant and graft; I25.2 Old myocardial infarction; E78.00 Pure hypercholesterolemia, unspecified; J45.909 Unspecified asthma, uncomplicated; G47.33 Obstructive sleep apnea (adult) (pediatric); F17.210 Nicotine dependence, cigarettes, uncomplicated; Z88.6 Allergy status to analgesic agent; Z98.890 Other specified postprocedural states
CPT/HCPCS: 64721; J0171; J2003

== ENCOUNTER 2025-01-16 14:36 | Outpatient (AMB) | payer MEDICAID, SELFPAY ==
--- NOTE | 2025-01-16 14:49 | MHC.OFFVIS ---
Vital Signs 01/16/25 15:00 Height 5 ft 3 in Weight 205 lb BMI 36.3 Intake Visit Reasons: PO RT CTR 01/01/25 AR Intake Note: Trenton is a 59 year old right hand dominant male who presents today post operatively s/p right carpal tunnel release, DOS: 01/01/25, by Dr. Ventura. Patient reports pain on some of the stitches. Reports numbness and tingling on the dorsal aspect of the right index and middle finger. Denies finger locking. Sutures removed in office today and steri strips applied. Allergies naproxen Adverse Reaction (Intermediate, Verified 01/21/25 10:11) kidney problems, hematuria ibuprofen Adverse Reaction (Verified 01/21/25 10:11) hematuria HPI HPI PO RT CTR 01/01/25 AR: Details: Trenton is a 59 year old right hand dominant male who presents today post operatively s/p right carpal tunnel release, DOS: 01/01/25, by Dr. Ventura. Patient reports pain on some of the stitches. Reports numbness and tingling on the dorsal aspect of the right index and middle finger. Denies finger locking. Sutures removed in office today and steri strips applied. PFSH Medical History Hemorrhoids Acid reflux Fibromyalgia Herniated lumbar intervertebral disc Herniated cervical disc Hx of osteoarthritis Bilateral carpal tunnel syndrome Hx of renal calculi Hx of migraine headaches Anxiety and depression Sleep apnea Smoker Asthma Myocardial infarction Elevated cholesterol CAD (coronary artery disease) HTN (hypertension) Surgical History Status post excision of lipoma Hx of colonoscopy History of cardiac cath History of esophagogastroduodenoscopy (EGD) Hx of tonsillectomy Hx of umbilical hernia repair H/O lithotripsy History of PTCA Family History Mother Lung cancer Father Prostate cancer Social History Household Members: Significant Other and Family Housing: House Are you a primary customer care assistant to a significant other at home: No Do you presently have visiting nurse or other home services: No 75 years or older and lives alone: No Alcohol intake: current Alcohol intake frequency: holidays/special occasions only Patient Tobacco Use Status: Current everyday Tobacco user Tobacco use type: Cigarette Cigarette Packs Per Day: 0.5 Cigarettes Per Day: 10 Years Smoked: 40 Current occupational status: employed 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 Neuro: Normal sensation of the tips of all digits of the bilateral hand at this time Vascular: Cap refill brisk Pain: No tenderness to palpation about the bilateral hands or wrists ROM: Patient is able to make a closed fist and extend all digits of bilateral hands fully and without difficulty Skin: Well approximated and well healing incision site noted on the volar right wrist General: No ecchymosis, erythema, or evidence of infection. Psych: Appears grossly normal Affect normal Attitude cooperative Assessment & Plan Assessment & Plan (1) Bilateral carpal tunnel syndrome: Code(s): G56.03 - Carpal tunnel syndrome, bilateral upper limbs Category: Medical Plan 1. Carpal tunnel syndrome, right status post carpal tunnel release Patient appears to be recovering well postoperatively Patient is educated about the typical recovery course No further follow-up indicated, as he is recovering very well Patient was amenable to this plan 2. Carpal tunnel syndrome, left Symptoms intermittent, daily, worse at night I educated the patient about the condition. I discussed both operative and nonoperative treatment options. The patient would like to proceed with surgery. The risks and benefits of operative treatment were discussed with the patient and the patient wishes to proceed with surgery. These risks include, but are not limited to, risk of damage to blood vessels, nerves, tendons, infection, recurrence, incomplete relief of preoperative symptoms, persistent pain, possible need for further surgery, and the risks associated with regional blocks and/or anesthesia. Plan is to take the patient to the operating room at some point in the next few weeks for the following procedures: 1. Left carpal tunnel release under local All of the preoperative paperwork including the consent was discussed today. All of the patient's questions were answered in the clinic today. The patient understands that they will be in contact with our ophthalmology surgical technician to discuss scheduling their procedure. Patient denies diabetes, blood thinners, asthma, heart issues, lung issues, kidney issues, or current smoking. Coding Level of Care Code Est Pt Level 4 (30958) Diagnoses Bilateral carpal tunnel syndrome G56.03
--- OUTSIDE RECORDS SUMMARY | 2025-01-16 14:56 | XMS_ITS | Encounter Summary ---
Author Organization [facility] [facility] Address [address] [facility] 7t [place] [address] Care Team Providers Care Acetylene Torch Solderer Name Role Phone Name, Rafiq JENKINS Primary Care Provider [phone] Encounter Details Date Type Department Care Team (Late Contact Info) Description 12/29/2022 Abstract [facility] ADULT DENTAL [address] [place] [address] Dario Lynch DDS [address] [place], [place] [phone] Social History Tobacco Use Types Packs/Day Years [...] Description 02/11/2025 11:30 AM EDT Clinical Support [facility] MEDICINE [address] [place] [phone] Krysta Huston RN 03/13/2025 10:30 AM EDT Office Visit [facility] MEDICINE [address] [place] [address] Name, MD Rafiq [address] [place] [address] documented as of this encounter Visit Diagnoses Not on filedocumented in this encounter Care Teams Acetylene Torch Solderer Relationship Specialty Start Date End Date Name, MD Rafiq [address] [place] [address] PCP - General Family Medicine 12/16/15 documented as of this encounter
--- OUTSIDE RECORDS SUMMARY | 2025-01-16 14:56 | XMS_ITS | Clinical Summary ---
Author Organization [employer] [facility] Address [address] [place] [address] Care Team Providers Care Boston Cutter Name Role Phone Name, Rafiq JENKINS Primary Care Provider [phone] Surgical History Surgery Date Site/Laterality Comments OTHER SURGICAL HISTORY PROCEDURE: ---- OTHER ----; COMMENT: cardiac cath ESOPHAGOGASTRODUODENOSCOPY 03/28/10 PROCEDURE: AK ESOPHAGOGASTRODUODENOSCOPY TRANSORAL DIAGNOSTIC; COMMENT: normal TONSILLECTOMY PROCEDURE: [...] Recorded Sex Assigned at Not on file Legal Sex Male 2:18 PM EST Gender Identity Not on file Sexual Orientation [...] - 19+ 3-dose series) 1986 Pneumococcal Vaccine: 50+ Years (2 of 2 - PCV) 03/23/2015 03/23/2014 Pneumococcal Vaccine: Pediatrics (0 to 5 [...] patient's age to complete this topic Meningococcal B Vacine Aged Out No lo nger eligible based on patient's age to complete this topic RSV Immunization Patients Under 20 months Aged Out No longer eligible based on patient's age to complete this topic Varicella Vaccines Aged Out No longer eligible based on patient's age to complete this topic Care Teams Boston Cutter Relationship Specialty Start Date End Date Name, MD Rafiq [address] [place], [place] PCP - General Internal Medicine 07/30/08
--- OUTSIDE RECORDS SUMMARY | 2025-01-16 14:56 | XMS_ITS | Encounter Summary ---
Author Organization [employer] [facility] Address [address] [place] [address] 7t [place] [address] Care Team Providers Care Dish Person Name Role Phone Name, Rafiq JENKINS Primary Care Provider [phone] Encounter Details Date Type Department Care Team (Late Contact Info) Description 04/27/2023 Abstract [facility] MEDICINE [address] [place] [address] [phone] Name, MD Rafiq [address] [place] [address] [phone] Social History Tobacco Use Types Packs/Day Years [...] Description 02/11/2025 11:30 AM EDT Clinical Support [facility] MEDICINE [address] [place] [phone] Krysta Huston RN 03/13/2025 10:30 AM EDT Office Visit [facility] MEDICINE [address] [place] [address] Name, MD Rafiq [address] [place] [address] documented as of this encounter Procedures Procedure [...] on filedocumented in this encounter Care Teams Dish Person Relationship Specialty Start Date End Date Name, MD Rafiq [address] [place] [address] PCP - General Family Medicine 12/16/15 documented as of this encounter
--- OUTSIDE RECORDS SUMMARY | 2025-01-16 14:56 | XMS_ITS | Encounter Summary ---
Author Organization [employer] [facility] [facility] Address [address] [place] [address] 7t [place] [address] Care Team Providers Care Door Maker Name Role Phone Name, Rafiq JENKINS Primary Care Provider [phone] Reason for Visit * Reason Comments Med Refill Encounter Details Date Type Department Care Team (Late Contact Info) Description 03/13/2023 Refill [facility] MEDICINE [address] [place], [place] [phone] Sabine Boyd MD [address] [place], [place] [phone] Social History Tobacco Use Types Packs/Day Years [...] 02/11/2025 11:30 AM EDT Clinical Support [address] [address] Krysta Huston, LUCAS 03/13/2025 10:30 AM EDT Office Visit [address] [address] Name, MD Rafiq [address] [place] [address] documented as of this encounter Visit Diagnoses Not on filedocumented in this encounter Care Teams Door Maker Relationship Specialty Start Date End Date Name, MD Rafiq [address] [place] [address] PCP - General Family Medicine 12/16/15 documented as of this encounter
--- OUTSIDE RECORDS SUMMARY | 2025-01-16 14:56 | XMS_ITS | Encounter Summary ---
Author Organization [employer] Address [address] 7t [place] [address] Care Team Providers Care Apple Picking Supervisor Name Role Phone Name, Rafiq JENKINS Primary Care Provider [phone] Reason for Visit * Reason Comments Med Refill Encounter Details Date Type Department Care Team ([facility] st Contact Info) Description 12/31/2024 Refill [facility] MEDICINE [address] [place], [place] [phone] Latosha Car MD [address] [place], [place] [phone] Mild intermittent asthma, unspecified whether complicated Social [...] 02/11/2025 11:30 AM EDT Clinical Support [address] [address] Krysta Huston RN 03/13/2025 10:30 AM EDT Office Visit [address] [address] Name, MD Rafiq [address] [place] [address] documented as of this encounter Visit Diagnoses Diagnosis Mild intermittent asthma, unspecified whether complicated documented in this encounter Additional Health Concerns Assessment Noted Time PHQ-9 Depression Total Score: 0 02/05/20 24 2:30 PM EDT documented as of this encounter Care Teams Apple Picking Supervisor Relationship Specialty Start Date End Date Name, MD Rafiq [address] [place] [address] PCP - General Family Medicine 12/16/15 documented as of this encounter
--- OUTSIDE RECORDS SUMMARY | 2025-01-16 14:56 | XMS_ITS | Encounter Summary ---
Author Organization [employer] [facility] Address [address] [address] 7t [place] [address] Care Team Providers Care Collaborating Supervising Physician Name Role Phone Name, Rafiq JENKINS Primary Care Provider [phone] Reason for Visit * Reason Comments Med Refill Encounter Details Date Type Department Care Team (Late Contact Info) Description 06/03/2023 Refill [facility] MEDICINE [address] [place], [place] [phone] Sabine Boyd MD [address] [place], [place] [phone] Tobacco use disorder, continuous Social History Tobacco [...] Description 02/11/2025 11:30 AM EDT Clinical Support [address] [address] Krysta Huston, LUCAS 03/13/2025 10:30 AM EDT Office Visit [address] [address] Name, MD Rafiq [address] [place] [address] documented as of this encounter Visit Diagnoses Diagnosis Tobacco use disorder, continuous Tobacco use disorder documented in this encounter Care Teams Collaborating Supervising Physician Relationship Specialty Start Date End Date Name, MD Rafiq [address] [place] [address] PCP - General Family Medicine 12/16/15 documented as of this encounter
--- OUTSIDE RECORDS SUMMARY | 2025-01-16 14:56 | XMS_ITS | Encounter Summary ---
Author Organization [employer] Address [address] [facility] 7t [place] [address] Care Team Providers Care Computer Lab Assistant Name Role Phone Name, Rafiq JENKINS Primary Care Provider Reason for Visit * Reason Onset Date Comments Med Refill 06/12/2024 Encounter Details Date Type Department Care Team ([facility] st Contact Info) Description 06/12/2024 Telephone [facility] MEDICINE [address] [place], [place] [phone] Name, MD Rafiq [address] [place] [address] Med Refill Social History Tobacco Use Types [...] PM EDT Mass pat checked and meds. [facility] for approval. * Telephone Encounter - Rah Ferrer - 06/12/2024 9:30 AM EDT TC from pt requesting medication refill. Medications needing refill : oxyCODONE-acetaminophen (Percocet) 5-325 MG tablet To be sent to: [id number] [facility] documented in this encounter Plan of Treatment Upcoming Encounters Date Type Department Care Team (Late st Contact Info) Description 02/11/2025 11:30 AM EDT Clinical Support [facility] MEDICINE [address] [place] [address] Krysta Huston RN 03/13/2025 10:30 AM EDT Office Visit [facility] MEDICINE [address] [place] [address] Name, MD Rafiq [address] [place] [address] documented as of this encounter Visit Diagnoses Not on filedocumented in this encounter Additional Health Concerns Assessment Noted Time PHQ-9 Depression Total Score: 0 02/05/20 24 2:30 PM EDT documented as of this encounter Care Teams Computer Lab Assistant Relationship Specialty Start Date End Date Name, MD Rafiq [address] [place] [address] PCP - General Family Medicine 12/16/15 documented as of this encounter
--- OUTSIDE RECORDS SUMMARY | 2025-01-16 14:56 | XMS_ITS | Encounter Summary ---
Author Organization [facility] [employer] [facility] Address [address] [place] [address] 7t [place] [address] Care Team Providers Care Kitchen Porter Name Role Phone Name, Rafiq JENKINS Primary Care Provider [phone] Reason for Visit * Reason Comments Med Refill Encounter Details Date Type Department Care Team (Late Contact Info) Description 06/07/2023 Refill [facility] MEDICINE [address] [place], [place] [phone] Name, MD Rafiq [address] [place] [address] Tobacco use disorder, continuous Social History Tobacco [...] Description 02/11/2025 11:30 AM EDT Clinical Support [address] [address] Krysta Huston, RN 03/13/2025 10:30 AM EDT Office Visit [address] [address] Name, MD Rafiq [address] [place] [address] documented as of this encounter Visit Diagnoses Diagnosis Tobacco use disorder, continuous Tobacco use disorder documented in this encounter Care Teams Kitchen Porter Relationship Specialty Start Date End Date Name, MD Rafiq [address] [place] [address] PCP - General Family Medicine 12/16/15 documented as of this encounter
--- OUTSIDE RECORDS SUMMARY | 2025-01-16 14:56 | XMS_ITS | Encounter Summary ---
Author Organization [employer] Address [address] [facility] [address] [facility] [address] [place] [address] Care Team Providers Care Hydraulic Strainer Operator Name Role Phone Name, Rafiq JENKINS Primary Care Provider [phone] Encounter Details Date Type Department Care Team ([facility] st Contact Info) Description 12/25/2024 Orders Only [facility] External Provider, [facility] Social History Tobacco Use Types Packs/Day Years [...] 11:30 AM EDT Clinical Support [facility] MEDICINE [address] [place] [address] Krysta Huston RN 03/13/2025 10:30 AM EDT Office Visit [facility] MEDICINE [address] [place] [address] Name, MD Rafiq [address] [place] [address] documented as of this encounter Procedures Procedure Name Priority Date/Time Associated Diagnosis Comments MR KNEE WO CONTRAST LEFT Routine 12/25/2024 7:05 PM EST documented in this encounter Results * MR Knee w/o Contrast Left (12/25/2024 7:05 PM EST) Anatomical Region Laterality Modality Magnetic Resonan ce 12/25/2024 7:05 PM EST Narrative 12/26/2024 8:17 AM EST ? [facility] ?[address] ?[place] [address] ? Magnetic Resonance Report ? Signed ? Patient: Deidre Colon,Trenton ?MR#: [id number] ?? [id number] ? : 1965 ?Acct:[id number] ? Age/Sex: 59 / M ?ADM Date: 01/30/25 ? Loc: HO.MRI ? Attending : Kristan PETTY ? Ordering Physician: Kristan Oconnell ?? Date of Service: 12/25/24 ?? Procedure(s): MR knee LT wo con ?? Accession Number(s): [id number] ? cc: Kristan Oconnell; Name,Rafiq JENKINS ? [...] ? DD/ 1903 ? TD/TT: 12/25/245 ? Police District Switchboard Operator: ? Procedure Note Donotuseinterpreter, Image - 12/26/[address] [address] Magnetic Resonance Report Signed Patient: Erick Bejarano#: M [id number] : 1965Acct:[id number] Age/Sex: 59 / MADM Date: 12/25/24 Loc: HO.MRI Attending Dr: Kristan PETTY Ordering Physician: Kristan Oconnell Date of Service: 12/25/24 Procedure(s): MR knee LT wo con Accession Number(s): [id number] cc: Kristan Oconnell; Name,Rafiq JENKINS EXAMINATION: MRI [...] OV> 12/26/24 0814 DD/ 04 TD/TT: 12/25/241924 Police District Switchboard Operator: [facility] External Provider IMG MRI PROCEDURES Final Result documented in this encounter Visit Diagnoses Not on filedocumented in this encounter Additional Health Concerns Assessment Noted Time PHQ-9 Depression Total Score: 0 02/05/20 24 2:30 PM EDT documented as of this encounter Care Teams Hydraulic Strainer Operator Relationship Specialty Start Date End Date Name, MD Rafiq [address] [place] [address] PCP - General Family Medicine 12/16/15 documented as of this encounter
--- OUTSIDE RECORDS SUMMARY | 2025-01-16 14:56 | XMS_ITS | Encounter Summary ---
Author Organization [employer] Address [address] [facility] 7t [place] [address] Care Team Providers Care Beck Tender Name Role Phone Name, Rafiq JENKINS Primary Care Provider [phone] Reason for Visit * Reason Onset Date Comments Recommend COMMERCIAL DESIGNER Tier 2 12/17/2024 Encounter Details Date Type Department Care Team ([facility] st Contact Info) Description 12/17/2024 Telephone [facility] [address] [place], [place] [phone] Krysta Huston, LUCAS Recommend COMMERCIAL DESIGNER Tier 2 Social History Tobacco Use [...] RN - 12/17/2024 7:36 AM EST What COMMERCIAL DESIGNER Tier would you like this patient to be? I recommend Tier 2, please let me know if you agree or would rather patient be in another COMMERCIAL DESIGNER Tier. Tier 1 = HIGH RISK, Monthly COMMERCIAL DESIGNER visits Tier 2 = MODerate RISK, Q3 Month visits Tier 3 = LOW RISK = Q4-6 month visits documented in this encounter Plan of Treatment Upcoming Encounters Date Type Department Care Team (Late st Contact Info) Description 02/11/2025 11:30 AM EDT Clinical Support [facility] [address] [place] [address] Krysta Huston RN 03/13/2025 10:30 AM EDT Office Visit [facility] [address] [place] [address] NameRafiq MD [address] [place] [address] documented as of this encounter Visit Diagnoses Not on filedocumented in this encounter Additional Health Concerns Assessment Noted Time PHQ-9 Depression Total Score: 0 02/05/20 24 2:30 PM EDT documented as of this encounter Care Teams Beck Tender Relationship Specialty Start Date End Date Rafiq Grace MD [address] [place] [address] PCP - General Family Medicine 12/16/15 documented as of this encounter
--- OUTSIDE RECORDS SUMMARY | 2025-01-16 14:56 | XMS_ITS | Encounter Summary ---
Author Organization [employer] Address [address] [facility] 7t [place] [address] Care Team Providers Care Elementary Supervisor Name Role Phone Name, Rafiq JENKINS Primary Care Provider [phone] Reason for Visit * Reason Onset Date Comments Med Refill 01/05/2025 Encounter Details Date Type Department Care Team ([facility] st Contact Info) Description 01/05/2025 Refill [facility] [address] [place], [place] [phone] Name, MD Rafiq 230 [place] [address] Chronic low back pain, unspecified back pain [...] Miscellaneous Notes * Telephone Encounter - Sharri Bonilla - 01/05/2025 12:18 PM EST TC from pt requesting medication refill. Medications needing refill : oxyCODONE-acetaminophen (Percocet) 5-325 MG tablet To be sent to: [facility]/pharmacy #[id number] - [place] [address] [address] documented in this encounter Plan of Treatment Upcoming Encounters Date Type Department Care Team (Late st Contact Info) Description 02/11/2025 11:30 AM EDT Clinical Support [facility] MEDICINE [address] [place] [address] Krysta Huston RN 03/13/2025 10:30 AM EDT Office Visit [facility] [address] [place] [phone] Name, MD Rafiq [address] [place] [address] documented as of this encounter Visit Diagnoses Diagnosis Chronic low back pain, unspecified back pain laterality, unspecified whether sciatica present documented in this encounter Additional Health Concerns Assessment Noted Time PHQ-9 Depression Total Score: 0 02/05/20 24 2:30 PM EDT documented as of this encounter Care Teams Elementary Supervisor Relationship Specialty Start Date End Date Name, MD Rafiq 230 [place] [address] PCP - General Family Medicine 12/16/15 documented as of this encounter
--- OUTSIDE RECORDS SUMMARY | 2025-01-16 14:56 | XMS_ITS | Encounter Summary ---
Author Organization [employer] Address [address] [facility] [address] 7t [place] [address] Care Team Providers Care Tents Assembler Name Role Phone Name, Rafiq JENKINS Primary Care Provider [phone] Encounter Details Date Type Department Care Team ([facility] st Contact Info) Description 01/15/2024 Telephone [facility] 230 [place], [place] [phone] Name, MD Rafiq 230 [place] [address] Social History Tobacco Use Types Packs/Day Years [...] t he electric, gas, oil or water [employer] threatened to shut off services in your [...] Alcaraz RN - 01/16/2024 11:46 AM EST [facility] surgical notes re: excision of lipoma on posterior neck sent to medical records. * Telephone Encounter - Rah Ferrer - 01/15/2024 10:28 AM EST Tc from patient calling to inform the PCP the patient had a procedure done on the neck on 01/15 at [facility] for skin lumps and was done by was the doctor who preformed the procedure documented in this encounter Plan of Treatment Upcoming Encounters Date Type Department Care Team (Late st Contact Info) Description 02/11/2025 11:30 AM EDT Clinical Support [address] [address] Krysta Huston RN 03/13/2025 10:30 AM EDT Office Visit [facility] [address] [place] [address] Name, MD Rafiq [address] [place] [address] documented as of this encounter Visit Diagnoses Not on filedocumented in this encounter Care Teams Tents Assembler Relationship Specialty Start Date End Date Name, MD Rafiq [address] [place] [address] PCP - General Family Medicine 12/16/15 documented as of this encounter
--- OUTSIDE RECORDS SUMMARY | 2025-01-16 14:56 | XMS_ITS | Encounter Summary ---
Author Organization [employer] [facility] Address [address] [place] [address] 7 [place] [address] Care Team Providers Care Lab Clerk Name Role Phone Name, Rafiq JENKINS Primary Care Provider [phone] Reason for Visit * Reason Comments Med Refill Encounter Details Date Type Department Care Team (Late st Contact Info) Description 08/03/2023 Refill [facility] MEDICINE [address] [place] [address] [phone] Name, MD Rafiq [address] [place] [address] Social History Tobacco Use Types Packs/Day Years [...] Description 02/11/2025 11:30 AM EDT Clinical Support [address] [phone] Krysta Huston RN 03/13/2025 10:30 AM EDT Office Visit [address] [address] Name, MD Rafiq 230 [place] [address] documented as of this encounter Visit Diagnoses Not on filedocumented in this encounter Care Teams Lab Clerk Relationship Specialty Start Date End Date Name, MD Rafiq 230 [place] [address] PCP - General Family Medicine 12/16/15 documented as of this encounter
--- OUTSIDE RECORDS SUMMARY | 2025-01-16 14:56 | XMS_ITS | Encounter Summary ---
Author Organization [employer] Address 75 [facility] 7t [place] [address] Care Team Providers Care Gumming Machine Operator Name Role Phone Name, Rafiq JENKINS Primary Care Provider [phone] Reason for Visit * Reason Comments Med Change Request Encounter Details Date Type Department Care Team ([facility] st Contact Info) Description 09/24/2023 Refill [facility] 230 [place], [place] [phone] Name, MD Rafiq 230 [place], [place] [phone] Social History Tobacco Use Types Packs/Day Years [...] 02/11/2025 11:30 AM EDT Clinical Support [address] [address] Krysta Huston RN 03/13/2025 10:30 AM EDT Office Visit [address] [address] Name, MD Rafiq [address] [place] [address] documented as of this encounter Visit Diagnoses Not on filedocumented in this encounter Care Teams Gumming Machine Operator Relationship Specialty Start Date End Date Name, MD Rafiq [address] [place] [address] PCP - General Family Medicine 12/16/15 documented as of this encounter
--- OUTSIDE RECORDS SUMMARY | 2025-01-16 14:56 | XMS_ITS | Encounter Summary ---
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 Prescribed Percocet 5mg Q6hr PRN. States [...] Pt currently prescribed Percocet 5mg Q6hr PRN. HAZARDOUS MATERIALS HANDLER verified today. Rx last filled on12/06/24. Pill [...] medication. Last PCP visit was 10/15/24. A: CREAM RIPENER Contract Revisit: Chronic Opioid use related to pain. P: Pt to continue taking medication only as prescribed; Next CREAM RIPENER Renewal appointment scheduled for 02/11/25 @ 11:30am, F/U sooner PRN. Appointment reminder given. Pt verbalized understanding and agreed to plan. documented in this encounter Plan of Treatment Upcoming Encounters Date Type Department Care Team (Late st Contact Info) Description 02/11/2025 11:30 AM EDT Clinical Support [address] [address] Krysta Huston RN 03/13/2025 10:30 AM EDT Office Visit [address] [address] Rafiq Grace MD [address] [place] [address] documented as of this encounter Procedures Procedure [...] - 12/17/2024 11:37 AM EST UTOX cup Lot#[id number] Exp. 08/20/26 Internal Pass Control Rafiq Grace MD POINT OF CARE TEST ENTER/EDIT OR DERABLES Final Result documented in this encounter Visit Diagnoses Diagnosis Chronic pain syndrome- Primary documented in this encounter Additional Health Concerns Assessment Noted Time PHQ-9 Depression Total Score: 0 02/05/20 24 2:30 PM EDT documented as of this encounter Care Teams Spot Cleaner Relationship Specialty Start Date End Date Rafiq Grace, MD 230 [place] [address] PCP - General Family Medicine 12/16/15 documented as of this encounter
--- OUTSIDE RECORDS SUMMARY | 2025-01-16 14:56 | XMS_ITS | Clinical Summary ---
Author Organization [employer] Address [address] [place] [address] 7t [place] [address] Care Team Providers Care Guide Changer Name Role Phone Name, Rafiq JENKINS Primary Care Provider [phone] Allergies Active Allergy Reactions Criticality Noted Date Comments Ibuprofen 07/21/2015 Bleeding from bladder Naproxen 01/17/2016 Medications clopidogrel (Plavix) 75 MG tablet Take 1 tablet by mouth Once daily. 07/14/20 22 Active Diclofenac Sodium 1 % gel APPLY 2 GRAMS TO AFFECTED AREA TWICE A DAY 08/28/20 22 Active ergocalciferol (Vitamin D-2) 1.25 MG (43828 UT) capsule Take 1 capsule by mouth [...] MG EC tabletIndicatio ns:Coronary artery disease involving [place] coronary artery of [place] heart without angina pectoris TAKE 1 TABLET BY MOUTH EVERY DAY 90 tablet 1 11/05/20 24 Active albuterol (Ventolin HFA) 108 (90 Base) MCG/ACT inhalerIndicati ons:Mild intermittent asthma, unspecified whether complicated INHALE 2 PUFFS BY MOUTH EVERY 4 TO 6 HOURS NEEDED 18 g 12/31/19 25 Active oxyCODONE-aceta minophen (Percocet) 5-325 MG tabletIndicatio ns:Chronic low back pain, unspecified back pain laterality, unspecified whether sciatica present Take 1 tablet by mouth every 6 (six) hours if needed for severe pain for up to 28 days. 112 tablet 01/05/20 25 025 Active albuterol (Ventolin HFA) 108 (90 Base) MCG/ACT inhalerIndicati ons:Mild intermittent asthma, unspecified whether complicated TAKE 2 PUFFS BY MOUTH EVERY 4 TO 6 HOURS NEEDED 18 g 12/05/19 25 025 Discontinued oxyCODONE-aceta minophen (Percocet) 5-325 MG tabletIndicatio ns:Chronic low back pain, unspecified back pain laterality, unspecified whether sciatica present Take 1 tablet by mouth every 6 (six) hours if needed for severe pain for up to 28 days. Do not start before December 06, 2024. 112 tablet 12/06/19 25 025 Discontinued(R eorder (will not trigger notification [...] disease) 12/01/2016 Overview (02/06/2024): He follows at [facility]. Cardiac catheterization was in January 2021 when [...] Encounters Date Type Department Care Team Description 01/05/[address] [facility] MEDICINE 230 [place] [address] Name, MD Rafiq Chronic low back pain, unspecified back pain laterality, unspecified whether sciatica present 12/31/[address] [facility] MEDICINE [address] [place] [address] Latosha Car MD Mild intermittent asthma, unspecified whether complicated 12/25/2024 Orders Only [facility] External Provider, [facility] 12/17/2024 11:30 AM EST Clinical Support [facility]INE [facility] [place] [address] Krysta Huston RN Chronic pain syndrome (Primary Dx) 12/17/2024 Travel 12/17/[address] [facility] [place] [address] Krysta Huston RN Recommend DUMP TRUCK OPERATOR Tier 2 12/05/[address] [facility] [place] [address] Rafiq Grace MD Mild intermittent asthma, unspecified whether complicated 12/05/[address] [facility] [place] [address] Rafiq Grace MD Chronic low back pain, unspecified back pain laterality, unspecified whether sciatica present 12/04/[address] [facility] [place] [address] Rafiq Grace MD No Show 11/18/[address] [facility] [place] [address] Rafiq Grace MD CALLBACK REQUESTED 11/18/[address] [facility] [place] [address] Rafiq Grace MD FMLA (I called the patient regarding an application for FMLA, from [facility] [employer]. I reached his voicemail, and left a message asking him to return my call at ext [phone].) 11/05/[address] [facility] [place] [address] Rafiq Grace MD Coronary artery disease involving [place] coronary artery of [place] heart without angina pectoris 11/05/[address] [facility] [place] [address] Rafiq Grace MD Chronic low back pain, unspecified back pain laterality, unspecified whether sciatica present 10/29/[address] [facility] MEDICINE [address] [place] [address] Mariely Perez MA Approval notification 10/28/[address] [facility] MEDICINE [address] [place] [address] Elizabeth Edge, LUCAS 10/21/[address] [address] Qing Alcaraz RN 10/17/[address] [address] Name, MD Rafiq Letter for School/Work 10/17/2024 Orders Only [address] [address] Name, MD Rafiq 10/17/2024 Orders Only [facility] External Provider, [facility] 10/17/[address] [address] Elizabeth Edge, LUCAS from Last 3 Months Immunizations Name Administration Dates Next Due HepB-CpG 05/15/2023,04/11/2023 Influenza injectable quadriv alent IIV4 with preservative 11/14/2019,08/28/2016 Influenza injectable quadriv alent preservative free 09/05/2023,08/18/2022,09/03/2017 Influenza, IIV3, injectable 09/10/2015,1 ,08/12/2013,08/20,11/02/2011,04/09/2010,09/07/2008 Influenza, seasonal, injecta ble, preservative free 08/11/2024 Novel rbanahcod-[id number], preservative-free 01/26/2010 Pneumococcal Conjugate PCV 20 04/11/2023 [...] AM EDT Clinical Support [facility] MEDICINE [address] [place] [address] Krysta Huston, RN 03/13/2025 10:30 AM EDT Office Visit [address] [address] Name, MD Rafiq [address] [place] [address] Health Maintenance Due Date Last Done Comments [...] 10:27 AM EST Coronary artery disease involving [place] coronary artery of [place] heart with unstable angina pectoris (CMS/HCC) HEPATITIS C ANTIBODY Routine 02/06/2024 12:22 PM EDT Need for hepatitis C screening test POCT GLYCATED HEMOGLOBIN, TOTAL Routine 12/03/2023 4:16 PM EST Prediabetes HM LUNG CANCER SCREENING Routine 07/03/2023 INTRAORAL - COMPLETE SERIES OF RADIOGRAPHIC IMAGES Routine 12/15/2022 2:00 [...] EST Narrative 12/26/2024 8:17 AM EST ? [facility] ?[address] ?[place] [address] ? Magnetic Resonance Report ? Signed ? Patient: Deidre Colon,Trenton ?MR#: M ?? [id number] ? : 1965 ?Acct:[id number] ? Age/Sex: 59 / M ?ADM Date: 12/25/24 ? Loc: HO.MRI ? Attending Dr: Kristan PETTY ? Ordering Physician: Kristan Oconnell ?? Date of Service: 12/25/24 ?? Procedure(s): MR knee LT wo con ?? Accession Number(s): [id number] ? cc: Kristan Oconnell; Name,Rafiq JENKINS ? [...] MD in OV> ?12/26/24 0814 ? DD/ 04 ? TD/TT: 12/25/241924 ? Plumber: ? Procedure Note Navid, Halima - 12/26/[address] [address] Magnetic Resonance Report Signed Patient: Erick Bejarano#: M [id number] : 1965Acct:[id number] Age/Sex: 59 / MADM Date: 12/25/24 Loc: HO.MRI Attending Dr: Kristan PETTY Ordering Physician: Kristan Oconnell Date of Service: 12/25/24 Procedure(s): MR knee LT wo con Accession Number(s): [id number] cc: Kristan Oconnell; Name,Rafiq JENKINS EXAMINATION: MRI [...] OV> 12/26/24 0814 DD/ 04 TD/TT: 12/25/241924 Plumber: [facility] External Provider IMG MRI PROCEDURES Final Result * POCT FRANCI-14 Urine Drug Screen (12/17/2024 11:37 AM EST) THC Positive Oxycodone Screen, Urine Positive Urine Urine specimen obtained by clean catch procedure / Unknown 12/17/2024 11:37 AM EST Narrative Krysta Huston RN - 12/17/2024 11:37 AM EST UTOX cup Lot#[id number] Exp. 08/20/26 Internal Pass Control us Rafiq Name MD POINT OF CARE TEST ENTER/EDIT OR DERABLES Final Result * FL Esophagus Barium Swallow w/Air (11/27/2024 8:00 AM EST) Anatomical Region Laterality Modality Head, Neck Radiographic Nova ging 11/27/2024 8:00 AM EST Narrative 11/27/2024 4:09 PM EST ? [facility] ?[address] ?[place] [address] ? Fluoroscopy Report ? Signed ? Patient: Deidre Colon,Trenton ?MR#: M ?? [id number] ? : 1965 ?Acct:[id number] ? Age/Sex: 59 / M ?ADM Date: 11/27/24 ? Loc: HO.XRAY ? Attending Dr: Rafiq Grace MD ? Ordering Physician: Rafiq Grace MD ?? Date of Service: 11/27/24 ?? Procedure(s): FL barium swallow with air ?? Accession Number(s): [id number] ? cc: Rafiq Grace MD ? EXAMINATION: [...] Erazo PA-C, and supervised by ?? Dr. Jessika. ? Electronically signed by: ??Omar Jessika MD ??11/27/2024 04:07 PM EST RP ? Dictated By: ?Juma Erzao ? Signed By: ?<Electronically signed by Juma Erazo in OV> ? 11/27/24 1607 ?<Electronically signed by Omar S Jessika MD in OV> ? 11/27/24 1609 ? DD/ 0800 ? TD/TT: 11/27/24 0825 ? Plumber: ? Procedure Note Navid, Image - 11/27/[address] [address] Fluoroscopy Report Signed Patient: Erick Bejarano#: M [id number] : 1965Acct:[id number] Age/Sex: 59 / MADM Date: 11/27/24 Loc: HO.XRAY Attending Dr: Rafiq Grace MD Ordering Physician: Rafiq Grace MD Date of Service: 11/27/24 Procedure(s): FL barium swallow with air Accession Number(s): [id number] cc: NameRafiq MD EXAMINATION: XR FLUOROSCOPY UPPER GI WITH [...] 11/27/24 1609 DD/ 0800 TD/TT: 11/27/24 0825 Plumber: us Rafiq Name IMCasper FLUOROSCOPY PROCEDURES Edite d Result - Final * XR Chest 2 Views (10/17/2024 3:06 PM EST) Anatomical Region Laterality Modality Chest Radiographic Nova ging 10/17/2024 3:06 PM EST Narrative 10/17/2024 3:47 PM EST ? [facility] ?[address] ?[place] [address] ?XRay Report ? Signed ? Patient: Deidre Colon,Trenton ?MR#: M ?? [id number] ? : 1965 ?Acct:[id number] ? Age/Sex: 59 / M ?ADM Date: 10/17/24 ? Loc: HO.XRAY ? Attending Dr: Kylah Calderon MD ? Ordering Physician: Kylah Calderon MD ?? Date of Service: 10/17/24 ?? Procedure(s): XR chest 2V ?? Accession Number(s): [id number] ? cc: Rafiq Grace MD; Kylah Calderon [...] DD/ 1506 ? TD/TT: 10/17/24 1520 ? Plumber: ? Procedure Note Donhajater, Image - 10/17/2024 [place] [address] XRay Report Signed Patient: Erick Bejaarno#: M [id number] : 1965Acct:[id number] Age/Sex: 59 / MADM Date: 10/17/24 Loc: MUSA Attending Dr: Kylah Calderon MD Ordering Physician: Kylah Calderon MD Date of Service: 10/17/24 Procedure(s): XR chest 2V Accession Number(s): [id number] cc: Rafiq Grace MD; Kylah Calderon MD [...] 10/17/24 1542 DD/ 1506 TD/TT: 10/17/24 1520 Plumber: [facility] External Provider IMG XR PROCEDURES Final Result * (ABNORMAL) Lipid Panel, Standard (10/17/2024 10:27 AM EST) Triglycerides 164(H) <150 mg/dL [facility] Comment:Desirable Triglyceri de: less than 150 mg/dLBorderline High Triglyceride 150-199 mg/dLHigh Triglyceride: 200-499 mg/dLVery High Triglyceride: greater than or equal to 5OO mg/dL Cholesterol 214(H) <200 mg/dL [facility] Comment:Desirable Cholestero l: less than 200 mg/dLBorderline High Cholesterol: 200-239 mg/dLHigh Cholesterol: greater than 239 mg/dL LDL Cholesterol Calculated 151(H) <100 mg/dL [facility] Comment:Desirable LDL: less than 100 mg/dLNear Optimal/Above Optimal LDL: 110- 129 mg/dLBorderline High LDL: 130-159 mg/dLHigh LDL: 160-189 mg/dLVery High LDL: greater than or equal to 190 mg/dL HDL Cholesterol 31(L) >40 mg/dL [facility] Comment:Desirable HDL: great er than 40 mg/dL Note: This HDL assay may give artificially low results in patients with liver disease. Blood Venous blood specimen / Unknown 10/17/2024 10:27 AM EST 10/17/2024 11:05 AM EST us Rafiq Grace MD LAB BLOOD ORDERABLES Final Resul t [facility] [address] [place] [phone] * Hepatitis C Ab (02/06/2024 12:22 PM EDT) Hepatitis C Antibody Nonreactive Nonreactive [facility] Comment:Antibodies to HCV no t detected; does not exclude early acuteHCV infection. Blood Venous blood specimen / Unknown 02/06/2024 12:22 PM EDT 02/06/2024 1:11 PM EDT Rafiq Name LAB BLOOD ORDERABLES Final Resul t [facility] [address] [place] [address] [phone] * POCT HGB A1C (12/03/2023 4:16 PM EST) Pathologist [facility] Hemoglobin A1C 5.6 4.0 - 6.0 % Other 12/03/2023 4:16 PM EST Rafiq Name POINT OF CARE TEST ENTER/EDIT OR DERABLES Final Result * (ABNORMAL) Lung Cancer Screning (07/03/2023) Pathologist [facility] Lung CT LUNGRADS 0(A) LUNGRADS 1, LUNGRADS 2 Anatomical Region Laterality Modality Other Lisa Middleton HEALTH MAINTENANCE Final Resul t * Colonoscopy (12/24/2020 12:59 PM EST) Pathologist [facility] Colonoscopy Normal Normal Narrative Danielle Orellana - 12/24/2020 12:59 PM EST Recommended 5 year follow up Historical Provider HEALTH MAINTENANCE Final Result from Last 3 Months or Most Recently Relevant to Health Maintenance Insurance [facility] [address] [place] [id number] [place] STAND ADULT DENTAL - HSN FULL (MEDICAID) DENTAL - [employer] DENTAL [address] [place] [address] [place] [address] [place] [phone] Care Teams Guide Changer Relationship Specialty Start Date End Date Name, MD Rafiq [address] [place] [address] PCP - General Family Medicine 12/16/15
--- OUTSIDE RECORDS SUMMARY | 2025-01-16 14:56 | XMS_ITS | Encounter Summary ---
Author Organization [employer] Address [address] [facility] 7t [place] [address] Care Team Providers Care Skiing Instructor Name Role Phone Name, Rafiq JENKINS Primary Care Provider [phone] Encounter Details Date Type Department Care Team [...] Description 02/11/2025 11:30 AM EDT Clinical Support [facility] [address] [place] [id number] Krysta Huston RN 03/13/2025 10:30 AM EDT Office Visit [facility] [address] [place] [id number] Name, MD Rafiq [address] [place] [id number] documented as of this encounter Visit Diagnoses Not on filedocumented in this encounter Additional Health Concerns Assessment Noted Time PHQ-9 Depression Total Score: 0 02/05/20 24 2:30 PM EDT documented as of this encounter Care Teams Skiing Instructor Relationship Specialty Start Date End Date Name, MD Rafiq [address] [place] [id number] PCP - General Family Medicine 12/16/15 documented as of this encounter
[2025-01-16 15:00] VITALS: BMI 36.3
== END 2025-01-16 15:31 | disposition home or self-care (01) ==
PROVIDERS: PCP Internal Medicine Geriatric Medicine
DX: G56.03 Carpal tunnel syndrome, bilateral upper limbs (principal)
CPT/HCPCS: 99024

== ENCOUNTER → 2025-01-16 14:36 | Outpatient (BNVA) | payer MEDICAID, SELFPAY | PROVIDERS: PCP Internal Medicine Geriatric Medicine | DX: Z48.811 Encounter for surgical aftercare following surgery on the nervous system (principal); G56.02 Carpal tunnel syndrome, left upper limb; Z98.890 Other specified postprocedural states | CPT/HCPCS: 99212 ==

== ENCOUNTER 2025-01-21 10:01 | Outpatient (AMB) | payer MEDICAID, SELFPAY ==
--- NOTE | 2025-01-21 10:10 | A.OFFVIS_ITS ---
Vital Signs 01/21/25 10:13 Height 5 ft 3 in Weight 208 lb BMI 36.8 BP 140/95 H Blood Pressure Location Lt brachial Position Sitting Pulse 65 Pulse Source Pulse Oximeter Pulse Oximetry (%) 98 Oxygen Delivery Method Room Air Intake Visit Reasons: 1 Month Follow Up Machine Silver Stripper Required: No Allergies naproxen Adverse Reaction (Intermediate, Verified 01/21/25 10:11) kidney problems, hematuria ibuprofen Adverse Reaction (Verified 01/21/25 10:11) hematuria Medication List - Last Reconciled 01/21/25 by Michelle Rollins, ENGINE INSPECTOR albuterol sulfate 90 mcg/actuation 2 puffs inhalation Q4-6H PRN amlodipine 2.5 mg PO DAILY arm brace As directed aspirin 81 mg PO DAILY atorvastatin 80 mg PO DAILY baclofen 10 mg PO BID clopidogrel 75 mg PO DAILY docusate sodium 100 mg PO QAM ergocalciferol (vitamin D2) (Vitamin D2) 1,250 mcg PO QWEEK ezetimibe 10 mg PO QAM fluticasone furoate-vilanterol 200-25 mcg/dose (Breo Ellipta) 1 inh inhalation DAILY fluticasone propionate 50 mcg/actuation 2 sprays intranasal DAILY hydrocortisone 2.5% (Proctozone-HC) 1 appl WA BID PRN ipratropium bromide 2 sprays intranasal BID isosorbide mononitrate ER 60 mg PO DAILY metoprolol tartrate 100 mg PO BID 90 days multivitamin with folic acid 400 mcg (Daily-Maddi (with folic acid)) 1 tab PO QAM naloxone 4 mg/actuation 0 sprays intranasal nitroglycerin 0.4 mg sublingual Q5M PRN pantoprazole 20 mg PO DAILY simethicone (Gas Relief (simethicone)) 125 mg PO TID-QID PRN tamsulosin 0.4 mg PO BEDTIME umeclidinium 62.5 mcg/actuation (Incruse Ellipta) 1 inh inhalation DAILY HPI Comments Details: Trenton is very pleasant 59 years old gentleman who presents in my office 1 month after the therapeutic L4-L5 transforaminal epidural steroid injection. He reports that the benefit of the injection he felt 2 weeks after the procedure now all gone. He reports pain in the back with radiation into the mostly left lower extremity with electric shock-like sensation and numbing and burning sensation in the area of the hip lower leg and sometimes all the way down to the foot. Unfortunately the procedure which was performed for him last time could not be considered effective. I offered the patient to consider Medtronic spinal cord stimulator. I will schedule him for the trial as soon as he will go through psychological evaluation. [facility] brochure was given to the patient. We will start calling them tomorrow. Past Procedures: 12/10/24: Left knee Synvisc injection-40% pain relief 12/02/24: Left L4-L5 TFESI-80% ongoing pain relief 09/23/24: Bilateral Diagnostic L3-L4 DR L5 MBB-20% pain relief 02/12/24: Left L3-L4 TFESI-50-60% pain relief PRIOR: Patient is a pleasant 58 years old male with history of chronic low back pain with left sided radiculopathy, herniated cervical and lumbar discs, CAD with multiple cardiac stents (on Plavix) presents today for initial evaluation of neck, low back and left knee pain. Denies any recent or past trauma, injury or falls. 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 Reports neck pain due to large lump in his posterior neck for many years and has been affecting his cervical spine range of motion, causing him significant pain and stiffness especially with right lateral rotation and bending. Patient is interesting in surgical consultation for this. His back pain is axial and also radiates into his left thigh and lateral hip with associated numbness, tingling, left thigh and left knee pain, and thigh weakness. He denies any pain radiating down past left knee into his ankle or foot. Patient also presents with localized tenderness in the projection of left sacroiliac joint area and positive provocative testing. He reports left knee pain with crepitating on flexion, climbing stairs or pivoting. Patient denies previous spine surgery but has undergone several back injections for his back and left leg pain in 2010 at [facility] and completed physical therapy 2 years ago in [place], [place] without any improvement in his symptoms or functioning. Pain affects his daily activities, functioning, sleep, social interactions, work on quality of life. Denies any fever, abdominal pain, weight loss, foot drop, bladder or bowel dysfunction, or saddle anesthesia. Location Lower back radiates to right hip and anterior thigh; posterior neck pain Duration Chronic pain for> 25 years Characteristics of symptom or complaint Aching, radiating, stabbing, pinching, shooting, tingling Aggravating or associated factors Walking, lifting, bending, twisting, climbing stairs, pulling Relieving factors Rest, sitting, heat, Tylenol, Percocet Treatment PT, injection at [facility] in 2011 -no relief PFSH Medical History Hemorrhoids Acid reflux Fibromyalgia Herniated lumbar intervertebral disc Herniated cervical disc Hx of osteoarthritis Bilateral carpal tunnel syndrome Hx of renal calculi Hx of migraine headaches Anxiety and depression Sleep apnea Smoker Asthma Myocardial infarction Elevated cholesterol CAD (coronary artery disease) HTN (hypertension) Surgical History Status post excision of lipoma Hx of colonoscopy History of cardiac cath History of esophagogastroduodenoscopy (EGD) Hx of tonsillectomy Hx of umbilical hernia repair H/O lithotripsy History of PTCA Family History Mother Lung cancer Father Prostate cancer Social History Household Members: Significant Other and Family Housing: House Are you a primary before and after school daycare worker to a significant other at home: No Do you presently have visiting nurse or other home services: No 75 years or older and lives alone: No Alcohol intake: current Alcohol intake frequency: holidays/special occasions only Patient Tobacco Use Status: Current everyday Tobacco user Tobacco use type: Cigarette Cigarette Packs Per Day: 0.5 Cigarettes Per Day: 10 Years Smoked: 40 Current occupational status: employed 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 Review of Systems Const All systems reviewed & are unremarkable except as noted in HPI and below ENT Reports Normal hearing present Neuro Reports Normal hearing present, Denies Abnormal speech present and Denies Sensory deficit (Neuro) Physical Exam Vital Signs: Last Vital Signs Pulse 65 01/21/25 10:13 BP 140/95 H 01/21/25 10:13 Pulse Ox 98 01/21/25 10:13 Oxygen Delivery Method Room Air 01/21/25 10:13 BMI result Body Mass Index 36.8 Const General: no acute distress Nutritional Appearance: overweight Orientation/consciousness: patient oriented x3 Limitations: no limitations Eyes General: appearance normal, both eyes and all related structures Pupils: Equal, round and reactive pupils present EOM: EOMs intact bilaterally Neck Neck: Yes full ROM Chest Chest palpation & inspection: normal inspection of the chest Resp Effort & Inspection: normal respiratory effort, able to speak in complete sentences, normal respiratory pattern, no audible wheezes and no cough Cardio Jugular venous distension: no JVD GI Inspection: Yes normal to inspection Back/Spine/Pelvis Other: Clyde test is negative bilaterally, pelvic compression test is negative bilaterally, pelvic distraction test is negative bilaterally, SLR is positive on the left, Lasegue test is positive on the left, there is tenderness on palpation in projection of the paraspinal spinal region mostly lower lumbar spine and sacral bone. There is no tenderness on palpation in the projection of the sacroiliac joints bilaterally. Neuro General: patient oriented x3 and gait normal Cranial nerves: Yes CN's II-XII intact bilaterally, Yes Equal, round and reactive pupils present, Yes Normal hearing present and Yes Ability to bilaterally elevate shoulders present Speech: No Abnormal speech present Gait exam (Neuro): Normal gait present Motor exam (neuro): 5/5 motor strength present throughout Sensory Exam: No Sensory deficit (Neuro) Extrem General: No pedal edema Psych Speech and movement: Normal speech and movement present Affect: normal affect Attitude: cooperative Thought process: Normal thought process present Thought content: Normal thought content present Insight: Good insight present (Psych) Judgement: Good judgement present (Psych) Results Reviewed Results Reviewed: MR LUMBAR SPINE WITHOUT CONTRAST 05/25/23 CLINICAL INFORMATION: Low back pain. FINDINGS: VERTEBRAL BODIES AND PARASPINAL STRUCTURES: The marrow signal is within normal limits. There is swaevnqg-rv-nvlktz disc space narrowing with anterior endplate spurring partially visualized on sagittal imaging at the T10-T11 and T11-T12 levels. Left posterolateral disc bulge with facet arthropathy at the T10-T11 level results in significant left foraminal encroachment, only partially visualized. There are no compression fractures or subluxations. The paraspinal soft tissues appear normal. There are mild degenerative changes of the sacroiliac joints bilaterally. CONUS MEDULLARIS AND CAUDA EQUINE: The distal cord, conus tip, and cauda equina nerve roots appear normal. SPINAL LEVELS: L1-L2: Mild posterior disc bulge and mild facet arthropathy. Bulging disc mildly impresses upon the ventral thecal sac. No central canal stenosis or foraminal narrowing. L2-L3: Left posterolateral disc protrusion visible with mild impression upon the exiting left L2 nerve root. No central canal stenosis. L3-L4: Broad-based disc bulge without central canal stenosis. Bulging disc posterolaterally on both sides impresses upon the exiting L3 nerve roots. Moderate right and dszj-to-ikcdmjrh left foraminal narrowing. L4-L5: Generalized disc bulge and mild facet arthropathy without central canal stenosis. Bulging disc contributes to moderate bilateral foraminal encroachment and mild impression upon the exiting L4 nerve roots. L5-S1: Mild disc bulge with a posterior annular fissure which mildly impresses upon the right S1 nerve root. Mild facet arthropathy. No central canal stenosis or foraminal narrowing. IMPRESSION: 1. Left posterolateral disc protrusion at the L2-L3 level with mild impression upon the left L2 nerve root. 2. Broad-based disc bulge at the L3-L4 level with bulging disc impressing upon both exiting L3 nerve roots. Moderate right foraminal narrowing. 3. Disc bulge at the L4-L5 level with moderate bilateral foraminal encroachment and mild impression upon the exiting L4 nerve roots. 4. Posterior annular fissure at the L5-S1 level mildly impressing upon the right S1 nerve root. 5. Moderate degenerative disc disease at the T10-T11 and T11-T12 levels with significant left foraminal encroachment at the T10-T11 level. XR CERVICAL SPINE 04/25/23 CLINICAL INFORMATION: Neck pain and radiculopathy. FINDINGS: Bone alignment is normal. No fracture or dislocation. Degenerative spondylosis from C3-C4 to C6-C7. Normal disc spaces. Right-sided neuroforaminal narrowing from bony osteophyte from C4-C5 to C6-C7. Left-sided neuroforaminal narrowing from bony osteophyte from C3-C4 to C5 6. Prevertebral soft tissues are normal. IMPRESSION: Multilevel degenerative changes. I personally evaluated the MRI of the patient and did not see any Modic type changes in his lower lumbar vertebral bodies. Assessment & Plan Assessment & Plan (1) Left knee pain: Code(s): M25.562 - Pain in left knee Category: Medical (2) Lumbar spondylosis: Code(s): M47.816 - Spondylosis without myelopathy or radiculopathy, lumbar region Category: Medical (3) Lumbar radiculopathy: Code(s): M54.16 - Radiculopathy, lumbar region Category: Medical (4) Lumbar degenerative disc disease: Code(s): M51.36 - Other intervertebral disc degeneration, lumbar region Category: Medical (5) Osteoarthritis of left knee: Code(s): M17.12 - Unilateral primary osteoarthritis, left knee Category: Medical (6) Bilateral carpal tunnel syndrome: Code(s): G56.03 - Carpal tunnel syndrome, bilateral upper limbs Category: Medical (7) Chronic pain syndrome: Code(s): G89.4 - Chronic pain syndrome Category: Medical Plan unfortunately few weeks of the pain relief after transforaminal 2nd epidural steroid injection Demonstrate not acceptable pain relief. Spinal cord stimulator [employer] was offered to the patient. The patient will be schedule for a trial as soon as he will pass the psychological evaluation from [facility]. We will schedule him for the trial as soon as possible. 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 Patient Instructions: I here by testify that I spent 30 minutes in conversation with this patient as well as planning his care , evaluating prior records and prior diagnostic studies in the images as well as organizing this note. Coding Level of Care Code Est Pt Level 4 (66199) Diagnoses Left knee pain M25.562 Lumbar spondylosis M47.816 Lumbar radiculopathy M54.16 Lumbar degenerative disc disease M51.36 Osteoarthritis of left knee M17.12 Bilateral carpal tunnel syndrome G56.03 Chronic pain syndrome G89.4
[2025-01-21 10:13] VITALS: BP 140/95; PULSE 65; O2SAT 98; BMI 36.8
--- OUTSIDE RECORDS SUMMARY | 2025-01-21 12:01 | XMS_ITS | Encounter Summary ---
Author Organization [employer] [facility] Address [address] [place] [address] Care Team Providers Care Light Technician Name Role Phone Name, Rafiq JENKINS Primary Care Provider Unavailoj e Rafiq Grace MD Primary Care Provider Unavailabl e Magdalena Coreas SHOP LABORER Unavailable [phone] Mk Rolon MD Unavailable [phone] Encounter Details Date Type Department Care Team Description 01/16/2013 Electronic Train Control Technician Report Medical Records [address] [place] [address] Juanjose Palafox MD Social History Tobacco Use [...] on filedocumented in this encounter Care Teams Light Technician Relationship Specialty Start Date End Date Lesly, MD Rafiq PCP - General 07/30/08 01/30/16 Rafiq Grace MD PCP - General Internal Medicine 01/31/16 Magdalena Coreas NP Cardiology 04/14/21 Mk Rolon MD [address] [place] [address] [address] [place] [address] Specialist Cardiovascular Disease 04/14/21 documented as of this encounter
--- OUTSIDE RECORDS SUMMARY | 2025-01-21 12:01 | XMS_ITS | Clinical Summary ---
Author Organization [employer] [facility] Address [address] [place] [address] Care Team Providers Care Sales Porter Name Role Phone Name, Rafiq JENKINS Primary Care Provider [phone] Surgical History Surgery Date Site/Laterality Comments OTHER SURGICAL HISTORY PROCEDURE: ---- OTHER ----; COMMENT: cardiac cath ESOPHAGOGASTRODUODENOSCOPY 03/28/10 PROCEDURE: NC ESOPHAGOGASTRODUODENOSCOPY TRANSORAL DIAGNOSTIC; COMMENT: normal TONSILLECTOMY PROCEDURE: [...] age to complete this topic Care Teams Sales Porter Relationship Specialty Start Date End Date Name, MD Rafiq [address] [place], [place] PCP - General Internal Medicine 07/30/08
--- OUTSIDE RECORDS SUMMARY | 2025-01-21 12:01 | XMS_ITS | Encounter Summary ---
Author Organization [employer] [facility] Address [address] [place] [address] Care Team Providers Care Batter Depositor Name Role Phone Name, Rafiq JENKINS Primary Care Provider Unavailoj e Rafiq Grace MD Primary Care Provider Unavailabl e Magdalena Coreas ADJUNCT PHLEBOTOMY INSTRUCTOR Unavailable [phone] Mk Rolon MD Unavailable [phone] Encounter Details Date Type Department Care Team Description 12/17/2014 SCAN Medical Records [address] [place] [address] Abstract, Provider Social History Tobacco Use Types [...] on filedocumented in this encounter Care Teams Batter Depositor Relationship Specialty Start Date End Date Rafiq Grace MD PCP - General 07/30/08 01/30/16 Rafiq Grace MD PCP - General Internal Medicine 01/31/16 Magdalena Coreas, ADJUNCT PHLEBOTOMY INSTRUCTOR Cardiology 04/14/21 Mk oRlon MD [address] [place] [address] [address] [place] [address] Specialist Cardiovascular Disease 04/14/21 documented as of this encounter
--- OUTSIDE RECORDS SUMMARY | 2025-01-21 12:01 | XMS_ITS | Encounter Summary ---
Author Organization [employer] [facility] Address [address] [place] [address] Care Team Providers Care Manager Hematology Name Role Phone Name, Rafiq JENKINS Primary Care Provider Unavailoj e Rafiq Grace MD Primary Care Provider Unavailabl e Magdalena Coreas NURSE WOUND Unavailable [phone] Mk Rolon MD Unavailable [phone] Encounter Details Date Type Department Care Team Description 09/30/2010 Hospital Medical Records [address] [place] [address] Dayron Herrera MD Social History Tobacco Use [...] on filedocumented in this encounter Care Teams Manager Hematology Relationship Specialty Start Date End Date Rafiq Grace MD PCP - General 07/30/08 01/30/16 Rafiq Grace MD PCP - General Internal Medicine 01/31/16 Magdalena Coreas NP Cardiology 04/14/21 Mk Rolon MD [address] [place] [address] [address] [place] [address] Specialist Cardiovascular Disease 04/14/21 documented as of this encounter
--- OUTSIDE RECORDS SUMMARY | 2025-01-21 12:01 | XMS_ITS | Encounter Summary ---
Author Organization [facility] Address [address] [place] [address] Care Team Providers Care Mexican Food Maker Name Role Phone Name, Rafiq JENKINS Primary Care Provider Unavailoj e Rafiq Grace MD Primary Care Provider Unavailabl e Magdalena Coreas NP Unavailable [phone] Mk Rolon MD Unavailable Reason for Visit * Reason Onset Date Comments Walk In 06/11/2015 Encounter Details Date Type Department Care Team Description 06/11/2015 Telephone Adult Medicine [address] [address] Name, MD Rafiq Walk In Social History Tobacco Use Types Packs/Day Years Used Date Smoking Tobacco: Every Day Cigarettes 1.5 25 Smokeless Tobacco: Never Alcohol Use Standard Drinks/Week Comments No 0 (1 standard drink = 0.6 oz pur e alcohol) Sex Assigned at Date Recorded Not on file documented as of this encounter Miscellaneous Notes * Telephone Encounter - Nancy Conway - 06/11/2015 11:37 AM EDT Symptoms patient is presenting: patient Walked in stating that her was having pains around his navel area. If pain or injury related was it due to an accident at work or from a motor vehicle accident? NO If yes, gather 3rd green party insurance information Date of accident/Injury: na How long has patient had these symptoms?: Couple of weeks PCP: Rafiq Name Payor: [employer] FFS / Plan: FFS HMO $0 MEARS [id number] / Product Type: MEDICAID RISK documented in this encounter Plan of Treatment Not on file documented as of this encounter Visit Diagnoses Not on filedocumented in this encounter Care Teams Mexican Food Maker Relationship Specialty Start Date End Date Name, MD Rafiq PCP - General 07/30/08 01/30/16 Name, MD Rafiq PCP - General Internal Medicine 01/31/16 Magdalena Coreas NP Cardiology 04/14/21 Mk Rolon MD [address] [place] [address] [address] [place] [address] Specialist Cardiovascular Disease 04/14/21 documented as of this encounter
--- OUTSIDE RECORDS SUMMARY | 2025-01-21 12:01 | XMS_ITS | Encounter Summary ---
Author Organization [facility] Address [address] [place] [address] Care Team Providers Care Reception Specialist Name Role Phone Name, Rafiq JENKINS Primary Care Provider Unavailoj e Rafiq Grace MD Primary Care Provider Unavailabl e Magdalena Coreas HOOP BENDING MACHINE OPERATOR Unavailable [phone] Mk Rolon MD Unavailable [phone] Encounter Details Date Type Department Care Team Description 11/20/2013 [facility] Adult [address] [address] Name, MD Rafiq Social History Tobacco Use [...] on filedocumented in this encounter Care Teams Reception Specialist Relationship Specialty Start Date End Date Rafiq Grace MD PCP - General 07/30/08 01/30/16 Rafiq Grace MD PCP - General Internal Medicine 01/31/16 Magdalena Coreas NP Cardiology 04/14/21 Mk Rolon MD [address] [place] [address] [address] [place] [address] Specialist Cardiovascular Disease 04/14/21 documented as of this encounter
--- OUTSIDE RECORDS SUMMARY | 2025-01-21 12:01 | XMS_ITS | Encounter Summary ---
Author Organization [employer] Address [address] [facility] [address] [place] [address] Care Team Providers Care Purification Director Name Role Phone Name, Rafiq JENKINS Primary Care Provider [phone] Reason for Visit * Reason Onset Date Comments Med Refill 01/05/2025 Encounter Details Date Type Department Care Team ([facility] st Contact Info) Description 01/05/2025 Refill [facility] [address] [place], [place] [id number] Name, MD Rafiq [address] [place], [place] [id number] Chronic low back pain, unspecified back pain [...] 5-325 MG tablet To be sent to: [facility]/pharmacy #[id number] - [place] [address] [place] documented in this encounter Plan of Treatment Upcoming Encounters Date Type Department Care Team (Late st Contact Info) Description 02/11/2025 11:30 AM EDT Clinical Support [facility] [address] [place] [address] Krysta Huston RN 03/13/2025 10:30 AM EDT Office Visit [facility] [address] [place] [address] Name, MD Rafiq [address] [place] [address] documented as of this encounter Visit Diagnoses Diagnosis Chronic low back pain, unspecified back pain laterality, unspecified whether sciatica present documented in this encounter Additional Health Concerns Assessment Noted Time PHQ-9 Depression Total Score: 0 02/05/20 24 2:30 PM EDT documented as of this encounter Care Teams Purification Director Relationship Specialty Start Date End Date Name, MD Rafiq [address] [place] [address] PCP - General Family Medicine 12/16/15 documented as of this encounter
--- OUTSIDE RECORDS SUMMARY | 2025-01-21 12:01 | XMS_ITS | Encounter Summary ---
Author Organization [facility] Address [address] [place] [address] Care Team Providers Care It Consultant Name Role Phone Name, Rafiq JENKINS Primary Care Provider Unavailabl e Name, Rafiq JENKINS Primary Care Provider Unavailabl e Magdalena Coreas NP Unavailable [phone] Mk Rolon MD Unavailable [phone] Reason for Visit * Reason Onset Date Comments Provider Call Back 09/20/2012 Encounter Details Date Type Department Care Team Description 09/20/2012 Telephone Physiatry - [address] [address] Olivier Rose DO Provider Call Back Social [...] on filedocumented in this encounter Care Teams It Consultant Relationship Specialty Start Date End Date Name, MD Rafiq PCP - General 07/30/08 01/30/16 Name, MD Rafiq PCP - General Internal Medicine 01/31/16 Magdalena Coreas NP Cardiology 04/14/21 Mk Rolon MD [address] [place] [address] [address] [place] [address] Specialist Cardiovascular Disease 04/14/21 documented as of this encounter
--- OUTSIDE RECORDS SUMMARY | 2025-01-21 12:01 | XMS_ITS | Encounter Summary ---
Author Organization [facility] Address [address] [place] [address] Care Team Providers Care Occupational Health Nurse Name Role Phone Name, Rafiq JENKINS Primary Care Provider Unavailoj e Rafiq Grace MD Primary Care Provider Unavailabl e Magdalena Coreas RESTROOMS OR LOUNGES MAID Unavailable [phone] Mk Rolon MD Unavailable [phone] Encounter Details Date Type Department Care Team Description 11/25/2013 Orders Only Physiatry - [place] [address] [place] [address] Ashley Drew PA-C Social History Tobacco Use [...] on filedocumented in this encounter Care Teams Occupational Health Nurse Relationship Specialty Start Date End Date Rafiq Grace MD PCP - General 07/30/08 01/30/16 Rafiq Grace MD PCP - General Internal Medicine 01/31/16 Magdalena Coreas NP Cardiology 04/14/21 Mk Rolon MD [address] [place] [address] [address] [place] [address] Specialist Cardiovascular Disease 04/14/21 documented as of this encounter
--- OUTSIDE RECORDS SUMMARY | 2025-01-21 12:01 | XMS_ITS | Encounter Summary ---
[facility] Address [address] [place] [address] Care Team Providers Care Rigging Supervisor Name Role Phone Name, Rafiq JENKINS Primary Care Provider Unavailoj e Rafiq Grace MD Primary Care Provider Unavailabl e Magdalena Coreas X RAY DEVELOPING MACHINE OPERATOR Unavailable [phone] Mk Rolon MD Unavailable [phone] Encounter Details Date Type Department Care Team Description 11/20/2013 [facility] Adult [address] [address] Name, MD Rafiq Social History Tobacco Use [...] on filedocumented in this encounter Care Teams Rigging Supervisor Relationship Specialty Start Date End Date Rafiq Grace MD PCP - General 07/30/08 01/30/16 Rafiq Grace MD PCP - General Internal Medicine 01/31/16 Magdalena Coreas NP Cardiology 04/14/21 Mk Rolon MD [address] [place] [address] [address] [place] [address] Specialist Cardiovascular Disease 04/14/21 documented as of this encounter
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
--- OUTSIDE RECORDS SUMMARY | 2025-01-21 12:01 | XMS_ITS | Encounter Summary ---
Author Organization [facility] Address [address] [place] [address] Care Team Providers Care Respiratory Care Instructor Name Role Phone Name, Rafiq JENKINS Primary Care Provider Unavailabl e Rafiq Grace MD Primary Care Provider Unavailabl e Magdalena Coreas NP Unavailable [phone] Mk Rolon MD Unavailable [phone] Reason for Visit * Reason Onset Date Comments refill request 11/07/2013 Encounter Details Date Type Department Care Team Description 11/07/2013 Refill Adult Medicine [address] [address] Name, MD Rafiq refill request Social History [...] NO Patients current insurance carrier is: Payor: [employer] FFS Plan: FFS HMO $0 [employer] [id number] Product Type: MEDICAID RISK documented in this encounter Plan of Treatment Not on file documented as of this encounter Visit Diagnoses Diagnosis Low back pain Lumbago DJD (degenerative joint disease) Osteoarthrosis, unspecified whether generalized or localized, unspecified site Neck pain Cervicalgia documented in this encounter Care Teams Respiratory Care Instructor Relationship Specialty Start Date End Date Lesly, MD Rafiq PCP - General 07/30/08 01/30/16 Name, MD Rafiq PCP - General Internal Medicine 01/31/16 Magdalena Coreas NP Cardiology 04/14/21 Mk Rolon MD [address] [place] [address] [address] [place] [address] Specialist Cardiovascular Disease 04/14/21 documented as of this encounter
--- OUTSIDE RECORDS SUMMARY | 2025-01-21 12:01 | XMS_ITS | Encounter Summary ---
Author Organization [facility] Address [address] [place] [address] Care Team Providers Care Shipping Weigher Name Role Phone Name, Rafiq JENKINS Primary Care Provider Unavailoj e Rafiq Grace MD Primary Care Provider Unavailabl e Magdalena Coreas ANALYSIS ANALYST Unavailable [phone] Mk Rolon MD Unavailable [phone] Encounter Details Date Type Department Care Team Description 09/30/2010 Hospital Medical Records [address] [place] [address] Joseestephanie Prachi Social History Tobacco Use Types [...] on filedocumented in this encounter Care Teams Shipping Weigher Relationship Specialty Start Date End Date Rafiq Grace MD PCP - General 07/30/08 01/30/16 Rafiq Grace MD PCP - General Internal Medicine 01/31/16 Magdalena Coreas NP Cardiology 04/14/21 Mk Rolon MD [address] [place] [address] [address] [place] [address] Specialist Cardiovascular Disease 04/14/21 documented as of this encounter
--- OUTSIDE RECORDS SUMMARY | 2025-01-21 12:01 | XMS_ITS | Encounter Summary ---
Author Organization [facility] Address [address] [place] [address] Care Team Providers Care Restaurant Crew Person Name Role Phone Name, Rafiq JENKINS Primary Care Provider Unavailoj e Rafiq Grace MD Primary Care Provider Unavailabl e Magdalena Coreas ASBESTOS HANDLER Unavailable [phone] Mk Rolon MD Unavailable [phone] Encounter Details Date Type Department Care Team Description 08/12/2014 [facility] Medical Records [address] [place] [address] Violet Swanson MD Social History Tobacco Use [...] on filedocumented in this encounter Care Teams Restaurant Crew Person Relationship Specialty Start Date End Date Rafiq Grace MD PCP - General 07/30/08 01/30/16 Rafiq Grace MD PCP - General Internal Medicine 01/31/16 Magdalena Coreas NP Cardiology 04/14/21 Mk Rolon MD [address] [place] [address] [address] [place] [address] Specialist Cardiovascular Disease 04/14/21 documented as of this encounter
--- OUTSIDE RECORDS SUMMARY | 2025-01-21 12:01 | XMS_ITS | Encounter Summary ---
Author Organization [facility] Address [address] [place] [address] Care Team Providers Care Snow Removing Supervisor Name Role Phone Name, Rafiq JENKINS Primary Care Provider Unavailoj e Rafiq Grace MD Primary Care Provider Unavailabl e Magdalena Coreas CALCULATION REVIEWER Unavailable [phone] Mk oRlon MD Unavailable [phone] Encounter Details Date Type Department Care Team Description 08/18/2014 Assembl[facility] Convertible Top Report Medical Records [address] [place] [address] Violet Swanson MD Social History Tobacco Use [...] on filedocumented in this encounter Care Teams Snow Removing Supervisor Relationship Specialty Start Date End Date Rafiq Grace MD PCP - General 07/30/08 01/30/16 Rafqi Grace MD PCP - General Internal Medicine 01/31/16 Magdalena Coreas NP Cardiology 04/14/21 Mk Rolon MD [address] [place] [address] [address] [place] [address] Specialist Cardiovascular Disease 04/14/21 documented as of this encounter
--- OUTSIDE RECORDS SUMMARY | 2025-01-21 12:01 | XMS_ITS | Encounter Summary ---
Author Organization [employer] [facility] Address [address] [place] [address] Care Team Providers Care Frame Changer Name Role Phone Name, Rafiq JENKINS Primary Care Provider Unavailabl e Name, Rafiq JENKINS Primary Care Provider Unavailabl e Magdalena Coreas NP Unavailable [phone] Mk Rolon MD Unavailable [phone] Reason for Referral * Specialist (Routine) - Authorized/Booked Specialty Diagnoses / Procedures Referred By Heavenly brown Referred To Contact ORTHOPEDICS / Orthopedic Procedures REFERRAL TO ORTHOPEDICS Vidhya Esparza MD [address] [place] [address] [place] [address] Ortho/[address] [address] Referral ID Status Reason Start Date Expiration Date V isits Requested Visits Authorized NOT REQUIRED Authorized/ Booked 09/10/2014 09/10/2015 1 1 Reason for Visit * Reason Onset Date Comments Tool Inspector Feedback 09/09/2014 Orthopedic Encounter Details Date Type Department Care Team Description 09/09/2014 Telephone Physiatry - [place] [address] [place] [address] Vidhya Esparza MD [address] [place] [address] [place] [address] Tool Inspector Feedback (Orthopedic) Social History Tobacco Use Types Packs/Day Years Used Date Smoking Tobacco: Every Day Cigarettes 1.5 25 Smokeless Tobacco: Never Comments:has started smoking again 4-6 cigarettes a day Alcohol Use Standard Drinks/Week Comments No 0 (1 standard drink = 0.6 oz pur e alcohol) Sex Assigned at Date Recorded Not on file documented as of this encounter Miscellaneous Notes * Telephone Encounter - Vidhya Esparza MD - 09/10/2014 4:18 PM EDT Order signed. BTW what insurance did he have? * Telephone Encounter - Jo Martin - 09/09/2014 3:[address] Whalen, You have placed an order for this patient to orthopedics to be seen at [facility]. [facility] will not longer be accepting patients insurance. I have place a new order, please review and sign pended order. Thank you Jo Referrals Coordinator [facility] Referrals Department documented in this encounter Plan of Treatment Not on file documented as of this encounter Visit Diagnoses Not on filedocumented in this encounter Care Teams Frame Changer Relationship Specialty Start Date End Date Rafiq Grace MD PCP - General 07/30/08 01/30/16 Name, MD Rafiq PCP - General Internal Medicine 01/31/16 Magdalena Coreas NP Cardiology 04/14/21 Mk Rolon MD [address] [place] [address] [address] [place] [address] Specialist Cardiovascular Disease 04/14/21 documented as of this encounter
--- OUTSIDE RECORDS SUMMARY | 2025-01-21 12:02 | XMS_ITS | Encounter Summary ---
Author Organization [employer] Address [address] 7t [place] [address] Care Team Providers Care Heater Furnace Name Role Phone Name, Rafiq JENKINS Primary Care Provider [phone] Reason for Visit * Reason Onset Date Comments FMLA 01/20/2025 I called the pat ient, regarding a FMLA application from [employer]. I informed him that it has been faxed 3 times, and it is not going through. He agreed to have it mailed to [employer], and he will meat pickler a copy at [facility], to keep for his records. Encounter Details Date Type Department Care Team ([facility] st Contact Info) Description 01/20/2025 Telephone [facility] [address] [place] [address] Name, MD Rafiq [address] [place] [address] FMLA (I called the patient, regarding a FMLA application from [employer]. I informed him that it has been faxed 3 times, and it is not going through. He agreed to have it mailed to [employer], and he will meat pickler a copy at [facility], to keep for his records. ) Social History Tobacco Use Types Packs/Day Years [...] encounter Miscellaneous Notes * Telephone Encounter - Missy Hernadez [place] - 01/20/2025 9:23 AM EST I called the patient, regarding a FMLA application from [employer]. I informed him that it has been faxed 3 times, and it is not going through. He agreed to have it mailed to [employer], and he will meat pickler a copy at HIM, to keep for his records. documented in this encounter Plan of Treatment Upcoming Encounters Date Type Department Care Team (Late st Contact Info) Description 02/11/2025 11:30 AM EDT Clinical Support [address] [address] Krysta Huston RN 03/13/2025 10:30 AM EDT Office Visit [facility] [address] [place] [address] Name, MD Rafiq [address] [place] [address] documented as of this encounter Visit Diagnoses Not on filedocumented in this encounter Additional Health Concerns Assessment Noted Time PHQ-9 Depression Total Score: 0 02/05/20 24 2:30 PM EDT documented as of this encounter Care Teams Heater Furnace Relationship Specialty Start Date End Date Name, MD Rafiq [address] [place] [address] PCP - General Family Medicine 12/16/15 documented as of this encounter
--- OUTSIDE RECORDS SUMMARY | 2025-01-21 12:02 | XMS_ITS | Encounter Summary ---
Author Organization [employer] [facility] Address [address] [facility] 7t [place] [address] Care Team Providers Care Clay Mixer Name Role Phone Name, Rafiq JENKINS Primary Care Provider [phone] Encounter Details Date Type Department Care Team (Late Contact Info) Description 12/29/[address] [facility] ADULT DENTAL [address] [place] [address] Dario Lynch DDS [address] [place], [place] [phone] Social History Tobacco Use Types Packs/Day Years [...] Description 02/11/2025 11:30 AM EDT Clinical Support [facility] [address] [place] [address] Krysta Huston RN 03/13/2025 10:30 AM EDT Office Visit [facility] [address] [place] [address] Name, MD Rafiq [address] [place] [address] documented as of this encounter Visit Diagnoses Not on filedocumented in this encounter Care Teams Clay Mixer Relationship Specialty Start Date End Date Name, MD Rafiq [address] [place] [address] PCP - General Family Medicine 12/16/15 documented as of this encounter
--- OUTSIDE RECORDS SUMMARY | 2025-01-21 12:02 | XMS_ITS | Encounter Summary ---
Author Organization [employer] Address [address] 7t [place] [address] Care Team Providers Care Assembling Machine Operator Name Role Phone Name, Rafiq JENKINS Primary Care Provider [phone] Encounter Details Date Type Department Care Team ([facility] st Contact Info) Description 12/25/2024 Orders Only [facility] External Provider, [facility] Social History Tobacco Use Types Packs/Day Years [...] Description 02/11/2025 11:30 AM EDT Clinical Support [facility] [address] [place] [address] Krysta Huston RN 03/13/2025 10:30 AM EDT Office Visit [facility] [address] [place] [address] Name, MD Rafiq [address] [place] [address] documented as of this encounter Procedures Procedure Name Priority Date/Time Associated Diagnosis Comments MR KNEE WO CONTRAST LEFT Routine 12/25/2024 7:05 PM EST documented in this encounter Results * MR Knee w/o Contrast Left (12/25/2024 7:05 PM EST) Anatomical Region Laterality Modality Magnetic Resonan ce 12/25/2024 7:05 PM EST Narrative 12/26/2024 8:17 AM EST ? [facility] ?[address] ?[place] [address] ? Magnetic Resonance Report ? Signed ? Patient: Deidre Colon,T[place] ?MR#: [id number] ?? [id number] ? : 1965 ?Acct:[id number] ? Age/Sex: 59 / M ?ADM Date: 01/30/25 ? Loc: HO.MRI ? Attending : Kristan PETTY ? Ordering Physician: Kristan Oconnell ?? Date of Service: 12/25/24 ?? Procedure(s): MR knee LT wo con ?? Accession Number(s): [id number] ? cc: Kristan Oconnell; Name,Rafiq JENKINS ? [...] ? DD/ 1903 ? TD/TT: 12/25/245 ? Safe Technician: ? Procedure Note Donotuseinterpreter, Image - 12/26/[address] [address] Magnetic Resonance Report Signed Patient: Erick Bejarano#: M [id number] : 1965Acct:[id number] Age/Sex: 59 / MADM Date: 12/25/24 Loc: HO.MRI Attending Dr: Kristan PETTY Ordering Physician: Kristan Oconnell Date of Service: 12/25/24 Procedure(s): MR knee LT wo con Accession Number(s): [id number] cc: Kristan Oconnell; Name,Rafiq JENKINS EXAMINATION: MRI [...] OV> 12/26/24 0814 DD/ 04 TD/TT: 12/25/241924 Safe Technician: [facility] External Provider IMG MRI PROCEDURES Final Result documented in this encounter Visit Diagnoses Not on filedocumented in this encounter Additional Health Concerns Assessment Noted Time PHQ-9 Depression Total Score: 0 02/05/20 24 2:30 PM EDT documented as of this encounter Care Teams Assembling Machine Operator Relationship Specialty Start Date End Date Name, MD Rafiq [address] [place] [address] PCP - General Family Medicine 12/16/15 documented as of this encounter
--- OUTSIDE RECORDS SUMMARY | 2025-01-21 12:02 | XMS_ITS | Encounter Summary ---
Author Organization [facility] Address [address] [place] [address] Care Team Providers Care Electrocardiograph Repairer Name Role Phone NameRafiq MD Primary Care Provider Unavailoj e Rafiq Grace MD Primary Care Provider Unavailabl e Magdalena Coreas CLEANER TOUCH UP WORKER Unavailable [phone] Mk Rolon MD Unavailable [phone] Encounter Details Date Type Department Care Team Description 01/12/2012 [place] Adult [address] [address] Name, MD Rafiq Social History Tobacco Use [...] on filedocumented in this encounter Care Teams Electrocardiograph Repairer Relationship Specialty Start Date End Date Rafiq Grace MD PCP - General 07/30/08 01/30/16 Rafiq Grace MD PCP - General Internal Medicine 01/31/16 Magdalena Coreas NP Cardiology 04/14/21 Mk Rolon MD [address] [place] [address] [address] [place] [address] Specialist Cardiovascular Disease 04/14/21 documented as of this encounter
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
--- OUTSIDE RECORDS SUMMARY | 2025-01-21 12:02 | XMS_ITS | Encounter Summary ---
Author Organization [employer] [facility] Address [address] [place] [address] Care Team Providers Care Combine Mechanic Name Role Phone Name, Rafiq JENKINS Primary Care Provider Unavailoj e Rafiq Grace MD Primary Care Provider Unavailabl e Magdalena Coreas DOCTOR OF VETERINARY MEDICINE Unavailable [phone] Mk Rolon MD Unavailable [phone] Encounter Details Date Type Department Care Team Description 03/18/2014 Transfer Records Medical Records [address] [place] [address] Abstract, Provider Social History Tobacco Use Types [...] on filedocumented in this encounter Care Teams Combine Mechanic Relationship Specialty Start Date End Date Rafiq Grace MD PCP - General 07/30/08 01/30/16 Rafiq Grace MD PCP - General Internal Medicine 01/31/16 Magdalena Coreas NP Cardiology 04/14/21 Mk Rolon MD [address] [place] [address] [address] [place] [address] Specialist Cardiovascular Disease 04/14/21 documented as of this encounter
--- OUTSIDE RECORDS SUMMARY | 2025-01-21 12:02 | XMS_ITS | Encounter Summary ---
Author Organization [employer] [facility] Address [address] [place] [address] 7t [place] [address] Care Team Providers Care Radio Installer Automobile Name Role Phone Name, Rafiq JENKINS Primary Care Provider [phone] Encounter Details Date Type Department Care Team (Late Contact Info) Description 04/27/2023 Abstract [facility] [address] [place] [phone] Name, MD Rafiq [address] [place] [address] [phone] Social History Tobacco Use Types Packs/Day Years [...] Description 02/11/2025 11:30 AM EDT Clinical Support [facility] [address] [place] [address] Krysta Huston RN 03/13/2025 10:30 AM EDT Office Visit [facility] [address] [place] [address] Name, MD Rafiq [address] [place] [address] documented as of this encounter Procedures Procedure [...] on filedocumented in this encounter Care Teams Radio Installer Automobile Relationship Specialty Start Date End Date Name, MD Rafiq [address] [place] [address] PCP - General Family Medicine 12/16/15 documented as of this encounter
--- OUTSIDE RECORDS SUMMARY | 2025-01-21 12:02 | XMS_ITS | Encounter Summary ---
Author Organization [employer] Address [address] 7t [place] [address] Care Team Providers Care Electrical Integrator Name Role Phone Name, Rafiq JENKINS Primary Care Provider [phone] Reason for Visit * Reason Comments Med Refill Encounter Details Date Type Department Care Team ([facility] st Contact Info) Description 12/31/2024 Refill [facility] [address] [place], [place] [phone] Latosha Car MD [address] [place], [place] [phone] Mild intermittent asthma, unspecified whether complicated Social [...] Description 02/11/2025 11:30 AM EDT Clinical Support [address] [address] Krysta Huston RN 03/13/2025 10:30 AM EDT Office Visit [address] [address] Name, MD Rafiq [address] [place] [address] documented as of this encounter Visit Diagnoses Diagnosis Mild intermittent asthma, unspecified whether complicated documented in this encounter Additional Health Concerns Assessment Noted Time PHQ-9 Depression Total Score: 0 02/05/20 24 2:30 PM EDT documented as of this encounter Care Teams Electrical Integrator Relationship Specialty Start Date End Date Name, MD Rafiq [address] [place] [address] PCP - General Family Medicine 12/16/15 documented as of this encounter
--- OUTSIDE RECORDS SUMMARY | 2025-01-21 12:02 | XMS_ITS | Encounter Summary ---
Author Organization [employer] Address [address] [facility] 7t [place] [address] Care Team Providers Care Process Control Supervisor Name Role Phone Name, Rafiq JENKINS Primary Care Provider [phone] Reason for Visit * Reason Onset Date Comments Med Refill 06/12/2024 Encounter Details Date Type Department Care Team ([facility] st Contact Info) Description 06/12/2024 Telephone [facility] [address] [place], [place] [phone] Name, MD Rafiq [address] [place] [address] Med Refill Social History Tobacco Use Types [...] Mass pat checked and meds. [facility] for approval. * Telephone Encounter - Rah Ferrer - 06/12/2024 9:30 AM EDT TC from pt requesting medication refill. Medications needing refill : oxyCODONE-acetaminophen (Percocet) 5-325 MG tablet To be sent to: [id number] AT [facility] documented in this encounter Plan of Treatment Upcoming Encounters Date Type Department Care Team (Late st Contact Info) Description 02/11/2025 11:30 AM EDT Clinical Support [facility] [address] [place] [address] Krysta Huston RN 03/13/2025 10:30 AM EDT Office Visit [facility] [address] [place] [address] Name, MD Rafiq [address] [place] [address] documented as of this encounter Visit Diagnoses Not on filedocumented in this encounter Additional Health Concerns Assessment Noted Time PHQ-9 Depression Total Score: 0 02/05/20 24 2:30 PM EDT documented as of this encounter Care Teams Process Control Supervisor Relationship Specialty Start Date End Date Name, MD Rafiq [address] [place] [address] PCP - General Family Medicine 12/16/15 documented as of this encounter
--- OUTSIDE RECORDS SUMMARY | 2025-01-21 12:02 | XMS_ITS | Encounter Summary ---
Author Organization [facility] Address [address] [place] [address] Care Team Providers Care Card Assembler Name Role Phone Name, Rafiq JENKINS Primary Care Provider Unavailabl e Name, Rafiq JENKINS Primary Care Provider Unavailabl e Magdalena Coreas NP Unavailable [phone] Mk Rolon MD Unavailable [phone] Reason for Visit * Reason Comments E-prescribe Rx Request Encounter Details Date Type Department Care Team Description 04/16/2015 Refill Physiatry - [place] [address] [place] [address] Olivier Rose DO E-prescribe Rx Request Social History Tobacco Use Types Packs/Day Years Used Date Smoking Tobacco: Every Day Cigarettes 1.5 25 Smokeless Tobacco: Never Alcohol Use Standard Drinks/Week Comments No 0 (1 standard drink = 0.6 oz pur e alcohol) Sex Assigned at Date Recorded Not on file documented as of this encounter Miscellaneous Notes * Telephone Encounter - Angle Willett L.P.N. - 04/16/2015 2:33 PM EDT Not contracted Last refill 10/28/14 Last Visit 08/25/14 Next visit not booked Component Value Date URINEOXYCOD POSITIVE 06/03/2014 URBENZO NEGATIVE 06/03/2014 URAMPHETAMIN NEGATIVE 06/03/2014 URMARIJUANA NEGATIVE 06/03/2014 UROPIATES NEGATIVE 06/03/2014 URBARBITUATE NEGATIVE 06/03/2014 URCOCAINE NEGATIVE 06/03/2014 METHADONE NONE DETECTED 05/26/2010 HYDROCODONE Negative 06/03/2014 Called pharmacy and requesting Lyrica can be sent via e scribe documented in this encounter Plan of Treatment Not on file documented as of this encounter Visit Diagnoses Not on filedocumented in this encounter Care Teams Card Assembler Relationship Specialty Start Date End Date Lesly, MD Rafiq PCP - General 07/30/08 01/30/16 Name, MD Rafiq PCP - General Internal Medicine 01/31/16 Magdalena Coreas NP Cardiology 04/14/21 Mk Rolon MD [address] [place] [address] [place] [address] Specialist Cardiovascular Disease 04/14/21 documented as of this encounter
--- OUTSIDE RECORDS SUMMARY | 2025-01-21 12:02 | XMS_ITS | Encounter Summary ---
Author Organization [employer] [facility] Address [address] [place] [address] Care Team Providers Care Lathe Operator Name Role Phone Name, Rafiq JENKINS Primary Care Provider Unavailoj e Rafiq Grace MD Primary Care Provider Unavailabl e Magdalena Coreas GENERAL LABOR Unavailable [phone] Mk Rolon MD Unavailable [phone] Encounter Details Date Type Department Care Team Description 03/13/2012 Financial Dealers Report Medical Records [address] [place] [address] Keny Rodriguez MD Social History Tobacco Use [...] on filedocumented in this encounter Care Teams Lathe Operator Relationship Specialty Start Date End Date Rafiq Grace MD PCP - General 07/30/08 01/30/16 Rafiq Grace MD PCP - General Internal Medicine 01/31/16 Magdalena Coreas NP Cardiology 04/14/21 Mk Rolon MD [address] [place] [address] [address] [place] [address] Specialist Cardiovascular Disease 04/14/21 documented as of this encounter
--- OUTSIDE RECORDS SUMMARY | 2025-01-21 12:02 | XMS_ITS | Clinical Summary ---
Author Organization [employer] Address [address] [place] [address] 7t [place] [address] Care Team Providers Care Recreation Facility Attendant Name Role Phone Name, Rafiq JENKINS Primary Care Provider [phone] Allergies Active Allergy Reactions Criticality Noted Date Comments Ibuprofen 07/21/2015 Bleeding from bladder Naproxen 01/17/2016 Medications clopidogrel (Plavix) 75 MG tablet Take 1 tablet by mouth Once daily. 07/14/20 22 Active Diclofenac Sodium 1 % gel APPLY 2 GRAMS TO AFFECTED AREA TWICE A DAY 08/28/20 22 Active ergocalciferol (Vitamin D-2) 1.25 MG (25470 UT) capsule Take 1 capsule by mouth [...] MG EC tabletIndicatio ns:Coronary artery disease involving potter [place] coronary artery of [place] heart without angina pectoris TAKE 1 TABLET [...] disease) 12/01/2016 Overview (02/06/2024): He follows at [facility]. Cardiac catheterization was in January 2021 when [...] Encounters Date Type Department Care Team Description 01/20/2025 Telephone [facility] [address] [place] [address] Name, MD ZUNILDA Conroy (I called the patient, regarding a FMLA application from [employer]. I informed him that it has been faxed 3 times, and it is not going through. He agreed to have it mailed to [place], and he will pickle maker a copy at [facility], to keep for his records. ) 01/05/2025 Refill [facility] [place] [address] Rafiq Grace MD Chronic low back pain, unspecified back pain laterality, unspecified whether sciatica present 12/31/2024 Refill [facility] [address] [facility] [place] [address] Latosha Car MD Mild intermittent asthma, unspecified whether complicated 12/25/2024 Orders Only [facility] External Provider, [facility] 12/17/2024 11:30 AM EST Clinical Support [facility] [address] [facility] [place] [address] Krysta Huston RN Chronic pain syndrome (Primary Dx) 12/17/2024 Travel 12/17/2024 Telephone [facility] [place] [address] Krysta Huston RN Recommend MACHINIST Tier 2 12/05/2024 Refill [facility] [address] [facility] [place] [address] Rafiq Grace MD Mild intermittent asthma, unspecified whether complicated 12/05/2024 Refill [facility] [address] [place] [address] Rafiq Grace MD Chronic low back pain, unspecified back pain laterality, unspecified whether sciatica present 12/04/2024 Telephone [facility] [place] [address] Rafiq Grace MD No Show 11/18/2024 Telephone [facility] [place] [address] Rafiq Grace MD CALLBACK REQUESTED 11/18/2024 Telephone [facility] [place] [address] Rafiq Grace MD FMLA (I called the patient regarding an application for FMLA, from [facility] [employer]. I reached his voicemail, and left a message asking him to return my call at ext [phone].) 11/05/2024 Refill [facility] [place] [address] Rafiq Grace MD Coronary artery disease involving potter [place] coronary artery of [place] heart without angina pectoris 11/05/[address] [address] Name, MD Rafiq Chronic low back pain, unspecified back pain laterality, unspecified whether sciatica present 10/29/[address] [address] Mariely Perez [place] Approval notification 10/28/[address] [address] Elizabeth Edge, LUCAS 10/21/[address] [address] Qing Alcaraz, LUCAS from Last 3 Months Immunizations Name Administration Dates Next Due HepB-CpG 05/15/2023,04/11/2023 Influenza injectable quadriv alent IIV4 with preservative 11/14/2019,08/28/2016 Influenza injectable quadriv alent preservative free 09/05/2023,08/18/2022,09/03/2017 Influenza, IIV3, injectable 09/10/2015,1 ,08/12/2013,08/20,11/02/2011,04/09/2010,09/07/2008 Influenza, seasonal, injecta ble, preservative free 08/11/2024 Novel [id number], preservative-free 01/26/2010 Pneumococcal Conjugate PCV 20 04/11/2023 [...] 02/11/2025 11:30 AM EDT Clinical Support [address] [address] Krysta Huston RN 03/13/2025 10:30 AM EDT Office Visit [address] [address] Name, MD Rafiq [address] [place] [address] Health Maintenance Due Date Last Done Comments [...] topic Meningococcal Vaccine Aged Out No shakila albetro eligible based on patient's age to complete [...] WITH AIR Routine 11/27/2024 8:00 AM EST LIPID PANEL, STANDARD Routine 10/17/2024 10:27 AM EST Coronary artery disease involving potter valley coronary artery of potter valley heart with unstable angina pectoris (CMS/HCC) HEPATITIS [...] EST Narrative 12/26/2024 8:17 AM EST ? [facility] ?[address] ?[place] [address] ? Magnetic Resonance Report ? Signed ? Patient: Deidre Colon,Trenton ?MR#: M ?? [id number] ? : 1965 ?Acct:[id number] ? Age/Sex: 59 / M ?ADM Date: 12/25/24 ? Loc: HO.MRI ? Attending Dr: Kristan PETTY ? Ordering Physician: Kristan Oconnell ?? Date of Service: 12/25/24 ?? Procedure(s): MR knee LT wo con ?? Accession Number(s): [id number] ? cc: Kristan Oconnell; Name,Rafiq JENKINS ? [...] ??Nicolas Gavin MD ??12/26/2024 08:14 AM EST ? Dictated By: ?Nicolas Gavin MD ? Signed By: ?<Electronically signed by Nicolas Gavin MD in OV> ?12/26/24 0814 ? DD/ 04 ? TD/TT: 12/25/241924 ? Financial Services Specialist: ? Procedure Note Navid, Image - 12/26/2024 [place] [address] Magnetic Resonance Report Signed Patient: Erick Bejarano#: M [id number] : 1965Acct:[id number] Age/Sex: 59 / MADM Date: 12/25/24 Loc: HO.MRI Attending Dr: Kristan PETTY Ordering Physician: Kristan Oconnell Date of Service: 12/25/24 Procedure(s): MR knee LT wo con Accession Number(s): [id number] cc: Kristan Oconnell; Name,Rafiq JENKINS EXAMINATION: MRI [...] proximal gastrocnemius tendon. Electronically signed by: Nicolas Gaivn MD 12/26/2024 08:14 AM EST Dictated By: Nicolas Gavin MD Signed By: <Electronically signed by Nicolas Gavin MD in OV> 12/26/24 0814 DD/ 04 TD/TT: 12/25/241924 Financial Services Specialist: [facility] External Provider IM MRI PROCEDURES Final Result * POCT FRANCI-14 Urine Drug Screen (12/17/2024 11:37 AM EST) THC Positive Oxycodone Screen, Urine Positive Urine Urine specimen obtained by clean catch procedure / Unknown 12/17/2024 11:37 AM EST Narrative Krysta Huston RN - 12/17/2024 11:37 AM EST UTOX cup Lot#[id number] Exp. 08/20/26 Internal Pass Control us Rafiq Name POINT OF CARE TEST ENTER/EDIT OR DERABLES Final Result * FL Esophagus Barium Swallow w/Air (11/27/2024 8:00 AM EST) Anatomical Region Laterality Modality Head, Neck Radiographic Nova ging 11/27/2024 8:00 AM EST Narrative 11/27/2024 4:09 PM EST ? [facility] ?[address] ?[place] [address] ? Fluoroscopy Report ? Signed ? Patient: Deidre Colon,Trenton ?MR#: M ?? [id number] ? : 1965 ?Acct:[id number] ? Age/Sex: 59 / M ?ADM Date: 11/27/24 ? Loc: HO.XRAY ? Attending Dr: Rafiq Grace MD ? Ordering Physician: Rafiq Grace MD ?? Date of Service: 11/27/24 ?? Procedure(s): FL barium swallow with air ?? Accession Number(s): [id number] ? cc: Rafiq Grace MD ? EXAMINATION: [...] Dr. Rosen. ? Electronically signed by: ??Omar Roesn MD ??11/27/2024 04:07 PM EST RP ? Dictated By: ?Juma Erazo ? Signed By: ?<Electronically signed by Juma Erazo in OV> ? 11/27/24 1607 ?<Electronically signed by Omar Rosen MD in OV> ? 11/27/24 1609 ? DD/ 0800 ? TD/TT: 11/27/24 0825 ? Financial Services Specialist: ? Procedure Note Navid, Halima - 11/27/[address] [address] Fluoroscopy Report Signed Patient: José BejaranoParamjit#: M [id number] : 1965Acct:[id number] Age/Sex: 59 / MADM Date: 11/27/24 Loc: HO.XRAY Attending Dr: Rafiq Grace MD Ordering Physician: Rafiq Grace MD Date of Service: 11/27/24 Procedure(s): FL barium swallow with air Accession Number(s): [id number] cc: Rafiq Grace MD EXAMINATION: XR FLUOROSCOPY [...] Omar Rosen MD 11/27/2024 04:07 PM EST Dictated By: Juma Erazo Signed By: <Electronically signed by Juma Erazo in OV> 11/27/24 1607 <Electronically signed by Omar Rosen MD in OV> 11/27/24 1609 DD/ 0800 TD/TT: 11/27/24 0825 Financial Services Specialist: us Rafiq Grace MD IMG FLUOROSCOPY PROCEDURES Edite d Result - Final * (ABNORMAL) Lipid Panel, Standard (10/17/2024 10:27 AM EST) Triglycerides 164(H) <150 mg/dL [facility] Comment:Desirable Triglyceri de: less than 150 mg/dLBorderline High Triglyceride 150-199 mg/dLHigh Triglyceride: 200-499 mg/dLVery High Triglyceride: greater than or equal to 5OO mg/dL Cholesterol 214(H) <200 mg/dL [facility] Comment:Desirable Cholestero l: less than 200 mg/dLBorderline High Cholesterol: 200-239 mg/dLHigh Cholesterol: greater than 239 mg/dL LDL Cholesterol Calculated 151(H) <100 mg/dL [facility] Comment:Desirable LDL: less than 100 mg/dLNear Optimal/Above Optimal LDL: 110- 129 mg/dLBorderline High LDL: 130-159 mg/dLHigh LDL: 160-189 mg/dLVery High LDL: greater than or equal to 190 mg/dL HDL Cholesterol 31(L) >40 mg/dL [facility] Comment:Desirable HDL: great er than 40 mg/dL Note: This HDL assay may give artificially low results in patients with liver disease. Blood Venous blood specimen / Unknown 10/17/2024 10:27 AM EST 10/17/2024 11:05 AM EST us Rafiq Grace MD LAB BLOOD ORDERABLES Final Resul t [facility] [address] [place] [address] [phone] * Hepatitis C Ab (02/06/2024 12:22 PM EDT) [facility] Hepatitis C Antibody Nonreactive Nonreactive [facility] Comment:Antibodies to HCV no t detected; does not exclude early acuteHCV infection. Blood Venous blood specimen / Unknown 02/06/2024 12:22 PM EDT 02/06/2024 1:11 PM EDT Rafiq Grace MD LAB BLOOD ORDERABLES Final Resul t [facility] [address] [place] [address] [phone] * POCT HGB A1C (12/03/2023 4:16 PM EST) [facility] Hemoglobin A1C 5.6 4.0 - 6.0 % Other 12/03/2023 4:16 PM EST Rafiq Grace MD POINT OF CARE TEST ENTER/EDIT OR DERABLES Final Result * (ABNORMAL) Lung Cancer Screning (07/03/2023) [facility] Lung CT LUNGRADS 0(A) LUNGRADS 1, LUNGRADS 2 Anatomical Region Laterality Modality Other Lisa Middleton HEALTH MAINTENANCE Final Resul t * Colonoscopy (12/24/2020 12:59 PM EST) [facility] Colonoscopy Normal Normal Narrative Danielle Orellana - 12/24/2020 12:59 PM EST Recommended 5 year follow up Lucy Paulino MD HEALTH MAINTENANCE Final Result from Last 3 Months or Most Recently Relevant to Health Maintenance Insurance [facility] C3 DENTAL-[facility] MEDICAID STAND ADULT DENTAL - HSN FULL (MEDICAID) DENTAL - [employer] DENTAL [address] [place] [address] [place] [address] [address] [address] [place] [address] Care Teams Recreation Facility Attendant Relationship Specialty Start Date End Date Name, MD Rafiq [address] [place] [address] PCP - General Family Medicine 12/16/15
--- OUTSIDE RECORDS SUMMARY | 2025-01-21 12:02 | XMS_ITS | Encounter Summary ---
Author Organization [facility] Address [address] [place] [address] Care Team Providers Care Tour Counselor Name Role Phone Name, Rafiq JENKINS Primary Care Provider Unavailoj e Rafiq Grace MD Primary Care Provider Unavailabl e Magdalena Coreas NUTTER UP Unavailable [phone] Mk Rolon MD Unavailable [phone] Encounter Details Date Type Department Care Team Description 02/27/2012 Hospital Medical Records [address] [place] [address] Keny Rodriguez MD Social History Tobacco Use [...] on filedocumented in this encounter Care Teams Tour Counselor Relationship Specialty Start Date End Date Rafiq Grace MD PCP - General 07/30/08 01/30/16 Rafiq Grace MD PCP - General Internal Medicine 01/31/16 Magdalena Coreas NP Cardiology 04/14/21 Mk Rolon MD [address] [place] [address] [address] [place] [address] Specialist Cardiovascular Disease 04/14/21 documented as of this encounter
--- OUTSIDE RECORDS SUMMARY | 2025-01-21 12:03 | XMS_ITS | Encounter Summary ---
Author Organization [facility] Address [address] [place] [address] Care Team Providers Care Tree Thinner Name Role Phone Name, Rafiq JENKINS Primary Care Provider Unavailoj e Rafiq Grace MD Primary Care Provider Unavailabl e Magdalena Coreas CRIMINAL INVESTIGATOR CUSTOMS Unavailable [phone] Mk Rolon MD Unavailable [phone] Encounter Details Date Type Department Care Team Description 07/16/2014 Hospital Medical Records [address] [place] [address] Lynette Nathan MD Social History Tobacco Use [...] on filedocumented in this encounter Care Teams Tree Thinner Relationship Specialty Start Date End Date Rafiq Grace MD PCP - General 07/30/08 01/30/16 Rafiq Grace MD PCP - General Internal Medicine 01/31/16 Magdalena Coreas NP Cardiology 04/14/21 Mk Rolon MD [address] [place] [address] [address] [place] [address] Specialist Cardiovascular Disease 04/14/21 documented as of this encounter
--- OUTSIDE RECORDS SUMMARY | 2025-01-21 12:03 | XMS_ITS | Encounter Summary ---
Author Organization [facility] Address [address] [place] [address] Care Team Providers Care Special Procedure Technologist Name Role Phone Name, Rafiq JENKINS Primary Care Provider Magdalena Esteban NP Unavailable Mk Rolon MD Unavailable [phone] Reason for Visit * Reason Onset Date Comments other 03/15/2021 Cardiac Rehab Encounter Details Date Type Department Care Team Description 03/15/2021 Telephone [facility] [address] [place] [address] Magdalena Coreas NP [address] [place] [address] Dr Mendes [address] [place] [address] other (Cardiac Rehab ) Social History Tobacco Use Types Packs/Day Years Used Date Smoking Tobacco: Every Day Cigarettes 0.5 25 Smokeless Tobacco: Never Alcohol Use Standard Drinks/Week Comments Yes 0 (1 standard drink = 0.6 oz pur e alcohol) socially Sex Assigned at Date Recorded Not on file documented as of this encounter Miscellaneous Notes * Telephone Encounter - Shayna Ware M.A. - 03/15/2021 10:48 AM EDT Pt will like to go to [place] [facility] , I will send over all paperwork to the cardiac rehab office in [place] . documented in this encounter Plan of Treatment Not on file documented as of this encounter Visit Diagnoses Not on filedocumented in this encounter Care Teams Special Procedure Technologist Relationship Specialty Start Date End Date Name, MD Rafiq PCP - General Internal Medicine 01/31/16 Magdalena Coreas NP Cardiology 04/14/21 Mk Rolon MD [address] [place] [address] [place] [address] Specialist Cardiovascular Disease 04/14/21 documented as of this encounter
--- OUTSIDE RECORDS SUMMARY | 2025-01-21 12:03 | XMS_ITS | Encounter Summary ---
Author Organization [employer] [facility] Address [address] [place] [address] 7t [place] [address] Care Team Providers Care Health Insurance Sales Agent Name Role Phone Name, Rafiq JENKINS Primary Care Provider [phone] Reason for Visit * Reason Comments Med Refill Encounter Details Date Type Department Care Team (Late Contact Info) Description 06/03/2023 Refill [facility] [address] [place], [place] [phone] Sabine Boyd MD [address] [place], [place] [phone] Tobacco use disorder, continuous Social History Tobacco [...] 02/11/2025 11:30 AM EDT Clinical Support [address] [address] Krysta Huston, LUCAS 03/13/2025 10:30 AM EDT Office Visit [address] [address] Name, MD Rafiq [address] [place] [address] documented as of this encounter Visit Diagnoses Diagnosis Tobacco use disorder, continuous Tobacco use disorder documented in this encounter Care Teams Health Insurance Sales Agent Relationship Specialty Start Date End Date Name, MD Rafiq [address] [place] [address] PCP - General Family Medicine 12/16/15 documented as of this encounter
--- OUTSIDE RECORDS SUMMARY | 2025-01-21 12:03 | XMS_ITS | Encounter Summary ---
Author Organization [facility] Address [address] [place] [address] 7[address] [place] [address] Care Team Providers Care Soup Mixer Name Role Phone Name, Rafiq JENKINS Primary Care Provider [phone] Reason for Visit * Reason Comments Med Refill Encounter Details Date Type Department Care Team (Late Contact Info) Description 03/13/2023 Refill [facility] [address] [place], [place] [phone] Sabine Boyd MD [address] [place], [place] [phone] Social History Tobacco Use Types Packs/Day Years [...] Description 02/11/2025 11:30 AM EDT Clinical Support [address] [address] Krysta Huston, LUCAS 03/13/2025 10:30 AM EDT Office Visit [address] [address] Name, MD Rafiq [address] [place] [address] documented as of this encounter Visit Diagnoses Not on filedocumented in this encounter Care Teams Soup Mixer Relationship Specialty Start Date End Date Name, MD Rafiq [address] [place] [address] PCP - General Family Medicine 12/16/15 documented as of this encounter
--- OUTSIDE RECORDS SUMMARY | 2025-01-21 12:03 | XMS_ITS | Encounter Summary ---
Author Organization [facility] Address [address] [place] [address] Care Team Providers Care Paint Coating Machine Operator Name Role Phone Name, Rafiq JENKINS Primary Care Provider Magdalena Esteban IOS SOFTWARE ENGINEER Unavailable [phone] Mk Rolon MD Unavailable [phone] Encounter Details Date Type Department Care Team Description 02/17/2016 Release of Information Medical Records [address] [place] [address] Abstract, Provider Social History Tobacco Use Types [...] on filedocumented in this encounter Care Teams Paint Coating Machine Operator Relationship Specialty Start Date End Date Name, MD Rafiq PCP - General Internal Medicine 01/31/16 Magdalena Coreas, SELINA Cardiology 04/14/21 Mk Rolon MD [address] [place] [address] [address] [place] [address] Specialist Cardiovascular Disease 04/14/21 documented as of this encounter
--- OUTSIDE RECORDS SUMMARY | 2025-01-21 12:03 | XMS_ITS | Encounter Summary ---
Author Organization [facility] Address [address] [place] [address] Care Team Providers Care Advertising Writer Name Role Phone Name, Rafiq JENKINS Primary Care Provider Magdalena Esteban SAMPLE TESTER GRINDER Unavailable [phone] Mk Rolon MD Unavailable [phone] Encounter Details Date Type Department Care Team Description 02/25/2021 [facility] Medical Records [address] [place] [address] Social History Tobacco Use Types Packs/Day Years [...] on filedocumented in this encounter Care Teams Advertising Writer Relationship Specialty Start Date End Date Name, MD Rafiq PCP - General Internal Medicine 01/31/16 Magdalena Coreas, SELINA Cardiology 04/14/21 Mk Rolon MD [address] [place] [address] [address] [place] [address] Specialist Cardiovascular Disease 04/14/21 documented as of this encounter
--- OUTSIDE RECORDS SUMMARY | 2025-01-21 12:03 | XMS_ITS | Encounter Summary ---
Author Organization [employer] [facility] Address [address] [place] [address] 7 [place] [address] Care Team Providers Care Top Installer Name Role Phone Name, Rafiq JENKINS Primary Care Provider [phone] Reason for Visit * Reason Comments Med Refill Encounter Details Date Type Department Care Team (Late st Contact Info) Description 08/03/2023 Refill [facility] MEDICINE [address] [place] [address] [phone] Name, MD Rafiq [address] [place] [address] Social History Tobacco Use Types Packs/Day Years [...] Description 02/11/2025 11:30 AM EDT Clinical Support [address] [phone] Krysta Huston RN 03/13/2025 10:30 AM EDT Office Visit [address] [address] Name, MD Rafiq [address] [place] [address] documented as of this encounter Visit Diagnoses Not on filedocumented in this encounter Care Teams Top Installer Relationship Specialty Start Date End Date Name, MD Rafiq [address] [place] [address] PCP - General Family Medicine 12/16/15 documented as of this encounter
--- OUTSIDE RECORDS SUMMARY | 2025-01-21 12:03 | XMS_ITS | Encounter Summary ---
Author Organization [employer] Address [address] [facility] 7t [place] [address] Care Team Providers Care Surveying Technician Name Role Phone Name, Rafiq JENKINS Primary Care Provider [phone] Reason for Visit * Reason Comments Med Change Request Encounter Details Date Type Department Care Team ([facility] st Contact Info) Description 09/24/2023 Refill [facility] MEDICINE [address] [place], [place] [phone] Name, MD Rafiq [address] [place], [place] [phone] Social History Tobacco Use Types Packs/Day Years [...] 02/11/2025 11:30 AM EDT Clinical Support [address] [address] Krysta Huston RN 03/13/2025 10:30 AM EDT Office Visit [address] [address] Name, MD Rafiq [address] [place] [address] documented as of this encounter Visit Diagnoses Not on filedocumented in this encounter Care Teams Surveying Technician Relationship Specialty Start Date End Date Name, MD Rafiq [address] [place] [address] PCP - General Family Medicine 12/16/15 documented as of this encounter
--- OUTSIDE RECORDS SUMMARY | 2025-01-21 12:03 | XMS_ITS | Encounter Summary ---
Author Organization [facility] Address [address] [place] [address] Care Team Providers Care Bakery Team Member Name Role Phone Name, Rafiq JENKINS Primary Care Provider Magdalena Esteban INSPECTOR AND SORTER Unavailable [phone] Mk Rolon MD Unavailable [phone] Encounter Details Date Type Department Care Team Description 11/22/2016 [facility] Medical Records [address] [place] [address] Social History Tobacco Use Types Packs/Day Years [...] on filedocumented in this encounter Care Teams Bakery Team Member Relationship Specialty Start Date End Date Name, MD Rafiq PCP - General Internal Medicine 01/31/16 Magdalena Coreas, SELINA Cardiology 04/14/21 Mk Rolon MD [address] [place] [address] [address] [place] [address] Specialist Cardiovascular Disease 04/14/21 documented as of this encounter
--- OUTSIDE RECORDS SUMMARY | 2025-01-21 12:03 | XMS_ITS | Clinical Summary ---
Author Organization [facility] Address [address] [place] [address] Care Team Providers Care Pipe Layer Name Role Phone Name, Rafiq JENKINS Primary Care Provider Magdalena Esteban HANDS AND DIAL INSPECTOR Unavailable [phone] Mk Rolon MD Unavailable [phone] Allergies Active Allergy Reactions Severity Noted Date [...] RISK PATIENTS (#2) 2032 03/23/2014 Care Teams Pipe Layer Relationship Specialty Start Date End Date Name, MD Rafiq PCP - General Internal Medicine 01/31/16 Magdalena Coreas NP Cardiology 04/14/21 Mk Rolon MD [address] [place] [address] [address] [place] [address] Specialist Cardiovascular Disease 04/14/21
--- OUTSIDE RECORDS SUMMARY | 2025-01-21 12:03 | XMS_ITS | Encounter Summary ---
Author Organization [facility] Address [address] [place] [address] Care Team Providers Care Stone Setter Metal Optical Frames Name Role Phone Name, Rafiq JENKINS Primary Care Provider Magdalena Esteban PICKER/PULLER Unavailable [phone] Mk Rolon MD Unavailable [phone] Encounter Details Date Type Department Care Team Description 11/18/2016 [facility] Medical Records [address] [place] [address] Social History Tobacco Use Types Packs/Day Years [...] on filedocumented in this encounter Care Teams Stone Setter Metal Optical Frames Relationship Specialty Start Date End Date Name, MD Rafiq PCP - General Internal Medicine 01/31/16 Magdalena Coreas, SELINA Cardiology 04/14/21 Mk Rolon MD [address] [place] [address] [address] [place] [address] Specialist Cardiovascular Disease 04/14/21 documented as of this encounter
--- OUTSIDE RECORDS SUMMARY | 2025-01-21 12:03 | XMS_ITS | Encounter Summary ---
Author Organization [facility] Address [address] [place] [address] Care Team Providers Care Lactation Consultant Name Role Phone Name, Rafiq JENKINS Primary Care Provider Magdalena Esteban RESOURCE MANAGEMENT PLANNER Unavailable [phone] Mk Rolon MD Unavailable [phone] Encounter Details Date Type Department Care Team Description 02/18/2021 [facility] Medical Records [address] [place] [address] Social History Tobacco Use Types Packs/Day Years [...] on filedocumented in this encounter Care Teams Lactation Consultant Relationship Specialty Start Date End Date Name, MD Rafiq PCP - General Internal Medicine 01/31/16 Magdalena Coreas, SELINA Cardiology 04/14/21 Mk Rolon MD [address] [place] [address] [address] [place] [address] Specialist Cardiovascular Disease 04/14/21 documented as of this encounter
--- OUTSIDE RECORDS SUMMARY | 2025-01-21 12:03 | XMS_ITS | Encounter Summary ---
Author Organization [facility] Address [address] [place] [address] Care Team Providers Care Assistant Banquet Manager Name Role Phone Name, Rafiq JENKINS Primary Care Provider Magdalena Esteban POCKET BUILDER Unavailable [phone] Mk Rolon MD Unavailable [phone] Encounter Details Date Type Department Care Team Description 09/21/2018 [facility] Medical Records [address] [place] [address] Social History Tobacco Use Types Packs/Day Years [...] on filedocumented in this encounter Care Teams Assistant Banquet Manager Relationship Specialty Start Date End Date Name, MD Rafiq PCP - General Internal Medicine 01/31/16 Magdalena Coreas, SELINA Cardiology 04/14/21 Mk Rolon MD [address] [place] [address] [address] [place] [address] Specialist Cardiovascular Disease 04/14/21 documented as of this encounter
--- OUTSIDE RECORDS SUMMARY | 2025-01-21 12:03 | XMS_ITS | Encounter Summary ---
Author Organization [employer] [facility] Address [address] [place] [address] 7t [place] [address] Care Team Providers Care Electric Stop Installer Name Role Phone Name, Rafiq JENKINS Primary Care Provider [phone] Reason for Visit * Reason Comments Med Refill Encounter Details Date Type Department Care Team (Late Contact Info) Description 06/07/2023 Refill [facility] MEDICINE [address] [place], [place] [phone] Name, MD Rafiq [address] [place] [address] Tobacco use disorder, continuous Social History Tobacco [...] Description 02/11/2025 11:30 AM EDT Clinical Support [address] [address] Krysta Huston, RN 03/13/2025 10:30 AM EDT Office Visit [address] [address] Name, MD Rafiq [address] [place] [address] documented as of this encounter Visit Diagnoses Diagnosis Tobacco use disorder, continuous Tobacco use disorder documented in this encounter Care Teams Electric Stop Installer Relationship Specialty Start Date End Date Name, MD Rafiq [address] [place] [address] PCP - General Family Medicine 12/16/15 documented as of this encounter
== END 2025-01-21 10:31 | disposition home or self-care (01) ==
PROVIDERS: PCP Internal Medicine Geriatric Medicine; Visit Provider Anesthesiology
DX: M25.562 Pain in left knee (principal); M47.816 Spondylosis without myelopathy or radiculopathy, lumbar region; M54.16 Radiculopathy, lumbar region; M51.369 Other intervertebral disc degeneration, lumbar region without mention of lumbar back pain or lower extremity pain; M17.12 Unilateral primary osteoarthritis, left knee; G56.03 Carpal tunnel syndrome, bilateral upper limbs; G89.4 Chronic pain syndrome
CPT/HCPCS: 99214

== ENCOUNTER → 2025-01-21 10:01 | Outpatient (BNVA) | payer MEDICAID, SELFPAY | PROVIDERS: PCP Internal Medicine Geriatric Medicine; Visit Provider Anesthesiology | DX: M47.26 Other spondylosis with radiculopathy, lumbar region (principal); M51.369 Other intervertebral disc degeneration, lumbar region without mention of lumbar back pain or lower extremity pain; M17.12 Unilateral primary osteoarthritis, left knee; G56.03 Carpal tunnel syndrome, bilateral upper limbs; G89.4 Chronic pain syndrome; Z98.890 Other specified postprocedural states | CPT/HCPCS: 99212 ==

== ENCOUNTER 2025-02-02 10:15 | Outpatient (REF) | payer MEDICAID, SELFPAY ==
[2025-02-02 11:26] LABS: MANUAL DIFF FLAG NO
--- OUTSIDE RECORDS SUMMARY | 2025-02-02 11:31 | XMS_ITS | Encounter Summary ---
Author Organization [facility] Address [address] [place] [address] Care Team Providers Care Collect On Delivery Clerk Name Role Phone Name, Rafiq JENKINS Primary Care Provider Unavailabl e Rafiq Grace MD Primary Care Provider Unavailabl e Magdalena Coreas NP Unavailable [phone] Mk Rolon MD Unavailable [phone] Reason for Visit * Reason Onset Date Comments refill request 11/20/2013 Encounter Details Date Type Department Care Team Description 11/20/2013 Refill Adult Medicine [address] [address] Name, MD Rafiq refill request Social History [...] NO Patients current insurance carrier is: Payor: [email or web address] FFS Plan: FFS HMO $0 [employer] [id number] Product Type: MEDICAID RISK documented in this encounter Plan of Treatment Not on file documented as of this encounter Visit Diagnoses Not on filedocumented in this encounter Care Teams Collect On Delivery Clerk Relationship Specialty Start Date End Date Rafiq Grace MD PCP - General 07/30/08 01/30/16 Lesly, MD Rafiq PCP - General Internal Medicine 01/31/16 Magdalena Coreas NP Cardiology 04/14/21 Mk Rolon MD [address] [place] [address] [place] [address] Specialist Cardiovascular Disease 04/14/21 documented as of this encounter
--- OUTSIDE RECORDS SUMMARY | 2025-02-02 11:31 | XMS_ITS | Encounter Summary ---
Author Organization [employer] [facility] Address [address] [place] [address] Care Team Providers Care Merchant Tailor Name Role Phone Name, Rafiq JENKINS Primary Care Provider Unavailoj e Rafiq Grace MD Primary Care Provider Unavailabl e Magdalena Coreas SHIP CONSTRUCTION TEACHER Unavailable [phone] Mk Rolon MD Unavailable [phone] Encounter Details Date Type Department Care Team Description 09/30/2010 Hospital Medical Records [address] [place] [address] Dayron Herrera MD Social History Tobacco Use [...] on filedocumented in this encounter Care Teams Merchant Tailor Relationship Specialty Start Date End Date Rafiq Grace MD PCP - General 07/30/08 01/30/16 Rafiq Grace MD PCP - General Internal Medicine 01/31/16 Magdalena Coreas NP Cardiology 04/14/21 Mk Rolon MD [address] [place] [address] [address] [place] [address] Specialist Cardiovascular Disease 04/14/21 documented as of this encounter
--- OUTSIDE RECORDS SUMMARY | 2025-02-02 11:31 | XMS_ITS | Encounter Summary ---
Author Organization [email or web address] [facility] Address [address] [place] [address] Care Team Providers Care Smt Technician Name Role Phone Name, Rafiq JENKINS Primary Care Provider Unavailoj e Rafiq Grace MD Primary Care Provider Unavailabl e Magdalena Coreas PATHOLOGY TEACHER Unavailable [phone] Mk Rolon MD Unavailable [phone] Encounter Details Date Type Department Care Team Description 08/12/2014 Hospital Medical Records [address] [place] [address] Violet Swanson MD Social History Tobacco Use [...] on filedocumented in this encounter Care Teams Smt Technician Relationship Specialty Start Date End Date Rafiq Grace MD PCP - General 07/30/08 01/30/16 Rafiq Grace MD PCP - General Internal Medicine 01/31/16 Magdalena Coreas NP Cardiology 04/14/21 Mk Rolon MD [address] [place] [address] [address] [place] [address] Specialist Cardiovascular Disease 04/14/21 documented as of this encounter
--- OUTSIDE RECORDS SUMMARY | 2025-02-02 11:31 | XMS_ITS | Encounter Summary ---
Author [facility] Address [address] [place] [address] Care Team Providers Care Transfer Professor Name Role Phone Name, Rafiq JENKINS Primary Care Provider Unavailoj e Rafiq Grace MD Primary Care Provider Unavailabl e Magdalena Coreas NP Unavailable [phone] Mk Rolon MD Unavailable [phone] Reason for Visit * Reason Onset Date Comments REFERRAL 11/24/2013 Encounter Details Date Type Department Care Team Description 11/24/2013 Telephone Adult Medicine [address] [address] Rafiq Grace MD REFERRAL Social History Tobacco Use Types [...] encounter Miscellaneous Notes * Telephone Encounter - Rafiq Grace MD - 11/27/2013 8:36 AM EST I will send him a letter. * Telephone Encounter - Prachi Freeman - 11/24/2013 11:[address] Grace per your request we called Trenton Jiang on 11/10/13&11/11/13 with no call back to schedule an appointment here in cardiology. We also sent him a letter on 11/13/13 with no response as well. Should you hear from Mr. Jiang would you please let him know we have been unable to reach him to schedule a follow up appointment. Thank you, Prachi BSR cardiology. documented in this encounter Plan of Treatment Not on file documented as of this encounter Visit Diagnoses Not on filedocumented in this encounter Care Teams Transfer Professor Relationship Specialty Start Date End Date Name, MD Rfaiq PCP - General 07/30/08 01/30/16 Name, MD Rafiq PCP - General Internal Medicine 01/31/16 Magdalena Coreas NP Cardiology 04/14/21 Mk Rolon MD [address] [place] [address] [address] [place] [address] Specialist Cardiovascular Disease 04/14/21 documented as of this encounter
--- OUTSIDE RECORDS SUMMARY | 2025-02-02 11:31 | XMS_ITS | Clinical Summary ---
Author Organization [employer] [facility] Address [address] [place] [address] Care Team Providers Care Echo Vascular Technologist Name Role Phone Name, Rafiq JENKINS Primary Care Provider [phone] Surgical History Surgery Date Site/Laterality Comments OTHER SURGICAL HISTORY PROCEDURE: ---- OTHER ----; COMMENT: cardiac cath ESOPHAGOGASTRODUODENOSCOPY 03/28/10 PROCEDURE: [place] ESOPHAGOGASTRODUODENOSCOPY TRANSORAL DIAGNOSTIC; COMMENT: normal TONSILLECTOMY PROCEDURE: [...] age to complete this topic Care Teams Echo Vascular Technologist Relationship Specialty Start Date End Date Name, MD Rafiq [address] [place], [place] PCP - General Internal Medicine 07/30/08
--- OUTSIDE RECORDS SUMMARY | 2025-02-02 11:31 | XMS_ITS | Encounter Summary ---
Author Organization [employer] [facility] Address [address] [facility] 7t [place] [address] Care Team Providers Care Cable Braider Name Role Phone Name, Rafiq JENKINS Primary Care Provider [phone] Reason for Visit * Reason Onset Date Comments Care Management 01/22/2025 [facility]- chart revi ew Encounter Details Date Type Department Care Team ([facility] Contact Info) Description 01/22/2025 Telephone [facility] MEDICINE [address] [place], [place] [phone] Name, MD Rafiq [address] [place] [address] Care Management (C3CM- chart review) Social History Tobacco Use Types Packs/Day Years [...] encounter Miscellaneous Notes * Telephone Encounter - Jairon Rose RN - 01/22/2025 8:40 AM EST JANETT Rose RN, performed chart review, in anticipation of initial assessment with patient, aspatient has stratified for C3 Adult Complex Care through the ADT feed. History significant for bilateral carpal tunnel syndrome, ASHLEE, other emphysema, nicotine dependence, fibromyositis, periodontal disease, umbilical hernia without obstruction and without gangrene, old myocardial infarction, lumbar spondylosis, GERD, chronic eczema of hand, anxiety, asthma, BPH, chronic back pain, CAD, depression, HTN, HLD, severe obesity, plantar fasciitis, prediabetes, stented coronary artery, tobacco use disorder continuous. Specialists include hand surgery [facility] orthopedics, [facility] GI, podiatry, ophthalmology, [facility] cardiology, [facility] pain management, [facility] pulmonology, [facility] orthopedics, [facility] general surgery. ED visits within the last 12 months include [facility] 01/21. Last appointment in PCP office on 10/15/24. Next appointment scheduled for 03/13/25. documented in this encounter Plan of Treatment Upcoming Encounters Date Type Department Care Team (Late st Contact Info) Description 02/11/2025 11:30 AM EDT Clinical Support [address] [address] Krysta Huston RN 03/13/2025 10:30 AM EDT Office Visit [facility] MEDICINE [address] [place] [address] Name, MD Rafiq [address] [place] [address] documented as of this encounter Visit Diagnoses Not on filedocumented in this encounter Additional Health Concerns Assessment Noted Time PHQ-9 Depression Total Score: 0 02/05/20 24 2:30 PM EDT documented as of this encounter Care Teams Cable Braider Relationship Specialty Start Date End Date Name, MD Rafiq [address] [place] [address] PCP - General Family Medicine 12/16/15 documented as of this encounter
--- OUTSIDE RECORDS SUMMARY | 2025-02-02 11:31 | XMS_ITS | Encounter Summary ---
Author Organization [employer] Address [address] [facility] 7t [place] [address] Care Team Providers Care Machine Welder Name Role Phone Name, Rafiq JENKINS Primary Care Provider [phone] Reason for Visit * Reason Comments Care Coordination C3 -KIMBERLY hand telephone call outreach Encounter Details Date Type Department Care Team (Latest Contact Info) Description 01/22/2025 Patient Outreach [facility] MEDICINE [address] [place], [place] [phone] Name, MD Rafiq [address] [place] [address] Care Coordination (C3 DESTIN Miranda telephone call outreach) Social History Tobacco Use Types Packs/Day Years [...] as of this encounter Progress Notes * Rosaura Miranda - 01/22/2025 9:13 AM EST CHW Rosaura Miranda, placed outbound call to patient in regards to offer services. CHW introducing herself from [facility] CM Department with CHW's name, department and direct contact number requesting call back. Will re-attempt to contact within 5 days. and address not confirmed. documented in this encounter Plan of Treatment Upcoming Encounters Date Type Department Care Team (Late st Contact Info) Description 02/11/2025 11:30 AM EDT Clinical Support [facility] MEDICINE [address] [place] [address] Krysta Huston RN 03/13/2025 10:30 AM EDT Office Visit [facility] MEDICINE [address] [place] [address] Name, MD Rafiq [address] [place] [address] documented as of this encounter Visit Diagnoses Not on filedocumented in this encounter Additional Health Concerns Assessment Noted Time PHQ-9 Depression Total Score: 0 02/05/20 24 2:30 PM EDT documented as of this encounter Care Teams Machine Welder Relationship Specialty Start Date End Date Name, MD Rafiq [address] [place] [address] PCP - General Family Medicine 12/16/15 documented as of this encounter
--- OUTSIDE RECORDS SUMMARY | 2025-02-02 11:31 | XMS_ITS | Encounter Summary ---
Author Organization [facility] Address [address] [place] [address] Care Team Providers Care Datapower Developer Name Role Phone Name, Rafiq JENKINS Primary Care Provider Unavailoj e Rafiq Grace MD Primary Care Provider Unavailabl e Magdalena Coreas LEARNING SUPPORT TEACHER Unavailable [phone] Mk Rolon MD Unavailable [phone] Encounter Details Date Type Department Care Team Description 04/12/2010 Hospital Medical Records [address] [place] [address] Valerie Patricio Social History Tobacco Use Types Packs/Day Years [...] on filedocumented in this encounter Care Teams Datapower Developer Relationship Specialty Start Date End Date Rafiq Grace MD PCP - General 07/30/08 01/30/16 Rafiq Grace MD PCP - General Internal Medicine 01/31/16 Magdalena Coresa NP Cardiology 04/14/21 Mk Rolon MD [address] [place] [address] [address] [place] [address] Specialist Cardiovascular Disease 04/14/21 documented as of this encounter
--- OUTSIDE RECORDS SUMMARY | 2025-02-02 11:31 | XMS_ITS | Encounter Summary ---
Author [facility] Address [address] [place] [address] Care Team Providers Care Assurance Auditor Name Role Phone Name, Rafiq JENKINS Primary Care Provider Unavailabl e Rafiq Grace MD Primary Care Provider Unavailabl e Magdalena Coreas NP Unavailable [phone] Mk Rolon MD Unavailable [phone] Reason for Visit * Reason Onset Date Comments medication problems 08/09/2012 Encounter Details Date Type Department Care Team Description 08/09/2012 Telephone Adult Medicine [address] [address] Name, MD Rafiq medication problems Social History [...] is patients PCP?: Rafiq Grace MD Payor: Active Scaler FFS Plan: FFS HMO $0 [employer] [id number] Product Type: MEDICAID RISK Pt is not sure he feels there maybe a problem with the medication, he asks that pharmacy is called to explain more fully. documented in this encounter Plan of Treatment Not on file documented as of this encounter Visit Diagnoses Not on filedocumented in this encounter Care Teams Assurance Auditor Relationship Specialty Start Date End Date Rafiq Grace MD PCP - General 07/30/08 01/30/16 Rafiq Grace MD PCP - General Internal Medicine 01/31/16 Magdalena Coreas NP Cardiology 04/14/21 Mk Rolon MD [address] [place] [address] [address] [place] [address] Specialist Cardiovascular Disease 04/14/21 documented as of this encounter
--- OUTSIDE RECORDS SUMMARY | 2025-02-02 11:31 | XMS_ITS | Encounter Summary ---
[facility] Address [address] [place] [address] Care Team Providers Care Production Boring Machine Operator Name Role Phone Name, Rafiq JENKINS Primary Care Provider Unavailabl e Name, Rafiq JENKINS Primary Care Provider Unavailabl e Magdalena Coreas NP Unavailable [phone] Mk Rolon MD Unavailable [phone] Reason for Visit * Reason Onset Date Comments Provider Call Back 09/20/2012 Encounter Details Date Type Department Care Team Description 09/20/2012 Telephone Physiatry - [address] [address] Olivier Rose DO Provider Call Back Social [...] on filedocumented in this encounter Care Teams Production Boring Machine Operator Relationship Specialty Start Date End Date Name, MD Rafiq PCP - General 07/30/08 01/30/16 Name, MD Rafiq PCP - General Internal Medicine 01/31/16 Magdalena Coreas NP Cardiology 04/14/21 Mk Rolon MD [address] [place] [address] [address] [place] [address] Specialist Cardiovascular Disease 04/14/21 documented as of this encounter
--- OUTSIDE RECORDS SUMMARY | 2025-02-02 11:31 | XMS_ITS | Encounter Summary ---
Author Organization [facility] Address [address] [place] [address] Care Team Providers Care Electrolytic De Scaler Name Role Phone Name, Rafiq JENKINS Primary Care Provider Unavailoj e Rafiq Grace MD Primary Care Provider Unavailabl e Magdalena Coreas MANAGER ADVANCED Unavailable [phone] Mk Rolon MD Unavailable [phone] Encounter Details Date Type Department Care Team Description 01/16/2013 Ambulance Officer Report Medical Records [address] [place] [address] Juanjose Palafox MD Social History Tobacco Use [...] on filedocumented in this encounter Care Teams Electrolytic De Scaler Relationship Specialty Start Date End Date Rafiq Grace MD PCP - General 07/30/08 01/30/16 Rafiq Grace MD PCP - General Internal Medicine 01/31/16 Magdalena Coreas NP Cardiology 04/14/21 kM Rolon MD [address] [place] [address] DR[address] [place] [address] Specialist Cardiovascular Disease 04/14/21 documented as of this encounter
--- OUTSIDE RECORDS SUMMARY | 2025-02-02 11:31 | XMS_ITS | Encounter Summary ---
Author Organization [facility] Address [address] [place] [address] Care Team Providers Care Pitch Flaker Name Role Phone Name, Rafiq JENKINS Primary Care Provider Unavailoj e Rafiq Grace MD Primary Care Provider Unavailabl e Magdalena Coreas MACHINE CONTAINER WASHER Unavailable [phone] Mk Rolon MD Unavailable [phone] Encounter Details Date Type Department Care Team Description 11/20/2013 [facility] Adult [address] [address] Name, MD Rafiq Social History Tobacco Use [...] on filedocumented in this encounter Care Teams Pitch Flaker Relationship Specialty Start Date End Date Rafiq Grace MD PCP - General 07/30/08 01/30/16 Rafiq Grace MD PCP - General Internal Medicine 01/31/16 Magdalena Coreas NP Cardiology 04/14/21 Mk Rolon MD [address] [place] [address] [address] [place] [address] Specialist Cardiovascular Disease 04/14/21 documented as of this encounter
[2025-02-02 11:32] LABS: Basophils Absolute Auto 0.1 X10*3/uL (0.0-0.2); Basophils Percent Auto 0.4 % (0-2); Eosinophils Absolute Auto 0.3 X10*3/uL (0.0-0.4); Eosinophils Percent Auto 2.8 % (0-4); Hematocrit 40.1 % (42.0-52.0); Imm Gran Abs Auto 0.05 X10*3/uL (0.00-0.03); Imm Gran Pct Auto 0.4 % (0.0-0.4); Lymphocytes Absolute Auto 2.3 X10*3/uL (1.2-4.9); Lymphocytes Percent Auto 20.7 % (20-40); Mean Corpuscular HGB Conc 32.4 g/dl (31.0-36.0); Mean Corpuscular Hemoglobin 29.3 pg (27.0-33.0); Mean Corpuscular Volume 90.5 fL (80.0-98.0); Mean Platelet Volume 11.1 fL (9.4-12.4); Monocytes Absolute Auto 1.4 X10*3/uL (0.1-1.2); Monocytes Percent Auto 12.2 % (2-11); Neutrophils Absolute Auto 7.1 x10*3/uL (2.0-8.3); Neutrophils Percent Auto 63.5 % (45-73); Platelet Count 273 X10*3/uL (160-400); Red Blood Count 4.43 X10*6/uL (4.60-5.80); Red Cell Distribution Width 13.8 % (11.0-16.0); White Blood Count 11.3 X10*3/uL (4.8-10.8)
--- OUTSIDE RECORDS SUMMARY | 2025-02-02 11:32 | XMS_ITS | Encounter Summary ---
Author Organization [employer] Address [address] [facility] [address] [place] [address] Care Team Providers Care Transportation Associate Name Role Phone Name, Rafiq JENKINS Primary Care Provider [phone] Reason for Visit * Reason Onset Date Comments FMLA 01/20/2025 I called the pat ient, regarding a FMLA application from [employer]. I informed him that it has been faxed 3 times, and it is not going through. He agreed to have it mailed to [place], and he will cloth picker a copy at [facility], to keep for his records. Encounter Details Date Type Department Care Team ([facility] st Contact Info) Description 01/20/2025 Telephone [facility] [address] [place] [address] Name, MD Rafiq [address] [place] [address] FMLA (I called the patient, regarding a FMLA application from [employer]. I informed him that it has been faxed 3 times, and it is not going through. He agreed to have it mailed to [facility], and he will cloth picker a copy at [facility], to keep for [...] the patient, regarding a FMLA application from [employer]. I informed him that it has been faxed 3 times, and it is not going through. He agreed to have it mailed to [place], and he will cloth picker a copy at [facility], to keep for his records. documented in this encounter Plan of Treatment Upcoming Encounters Date Type Department Care Team (Late st Contact Info) Description 02/11/2025 11:30 AM EDT Clinical Support [address] [address] Krysta Huston RN 03/13/2025 10:30 AM EDT Office Visit [facility] [address] [place] [address] Name, MD Rafiq [address] [place] [address] documented as of this encounter Visit Diagnoses Not on filedocumented in this encounter Additional Health Concerns Assessment Noted Time PHQ-9 Depression Total Score: 0 02/05/20 24 2:30 PM EDT documented as of this encounter Care Teams Transportation Associate Relationship Specialty Start Date End Date Name, MD Rafiq [address] [place] [address] PCP - General Family Medicine 12/16/15 documented as of this encounter
--- OUTSIDE RECORDS SUMMARY | 2025-02-02 11:32 | XMS_ITS | Encounter Summary ---
Author Organization [facility] Address [address] [facility] 7t [place] [address] Care Team Providers Care Principal Quality Engineer Name Role Phone Name, Rafiq JENKINS Primary Care Provider [phone] Encounter Details Date Type Department Care Team (Late Contact Info) Description 12/29/2022 Abstract [facility] [address] [place] [address] Dario Lynch DDS [address] [place], [place] [phone] Social History Tobacco Use Types Packs/Day Years [...] Description 02/11/2025 11:30 AM EDT Clinical Support [facility] [address] [place] [phone] Krysta Huston RN 03/13/2025 10:30 AM EDT Office Visit [facility] [address] [place] [phone] Name, MD Rafiq [address] [place] [address] documented as of this encounter Visit Diagnoses Not on filedocumented in this encounter Care Teams Principal Quality Engineer Relationship Specialty Start Date End Date Name, MD Rafiq [address] [place] [address] PCP - General Family Medicine 12/16/15 documented as of this encounter
--- OUTSIDE RECORDS SUMMARY | 2025-02-02 11:32 | XMS_ITS | Encounter Summary ---
Author Organization [employer] Address [address] [facility] 7t [place] [address] Care Team Providers Care Mental Health Tech Name Role Phone Name, Rafiq JENKINS Primary Care Provider [phone] Reason for Visit * Reason Onset Date Comments Med Refill 06/12/2024 Encounter Details Date Type Department Care Team ([facility] st Contact Info) Description 06/12/2024 Telephone [facility] [address] [place], [place] [phone] Name, MD Rafiq [address] [place] [address] Med Refill Social History Tobacco Use Types [...] PM EDT [place] pat checked and meds. [facility] for approval. * Telephone Encounter - Rah Ferrer - 06/12/2024 9:30 AM EDT TC from pt requesting medication refill. Medications needing refill : oxyCODONE-acetaminophen (Percocet) 5-325 MG tablet To be sent to: [id number] [facility] documented in this encounter Plan of Treatment Upcoming Encounters Date Type Department Care Team (Late st Contact Info) Description 02/11/2025 11:30 AM EDT Clinical Support [facility] [address] [place] [address] Krysta Huston RN 03/13/2025 10:30 AM EDT Office Visit [facility] [address] [place] [address] Name, MD Rafiq [address] [place] [address] documented as of this encounter Visit Diagnoses Not on filedocumented in this encounter Additional Health Concerns Assessment Noted Time PHQ-9 Depression Total Score: 0 02/05/20 24 2:30 PM EDT documented as of this encounter Care Teams Mental Health Tech Relationship Specialty Start Date End Date Name, MD Rafiq [address] [place] [address] PCP - General Family Medicine 12/16/15 documented as of this encounter
--- OUTSIDE RECORDS SUMMARY | 2025-02-02 11:32 | XMS_ITS | Encounter Summary ---
Author Organization [facility] Address [address] [place] [address] Care Team Providers Care Acute Coordinator Name Role Phone Name, Rafiq JENKINS Primary Care Provider Unavailoj e Rafiq Grace MD Primary Care Provider Unavailabl e Magdalena Coreas MOLD SWABBER Unavailable [phone] Mk Rolon MD Unavailable [phone] Encounter Details Date Type Department Care Team Description 03/18/2014 Transfer Records Medical Records [address] [place] [address] Abstract, Provider Social History Tobacco Use Types [...] on filedocumented in this encounter Care Teams Acute Coordinator Relationship Specialty Start Date End Date Rafiq Grace MD PCP - General 07/30/08 01/30/16 Rafiq Grace MD PCP - General Internal Medicine 01/31/16 Magdalena Coreas NP Cardiology 04/14/21 Mk Rolon MD [address] [place] [address] [address] [place] [address] Specialist Cardiovascular Disease 04/14/21 documented as of this encounter
--- OUTSIDE RECORDS SUMMARY | 2025-02-02 11:32 | XMS_ITS | Encounter Summary ---
Author Organization [facility] Address [address] [facility] [address] 7[address] [place] [address] Care Team Providers Care Internal Sales Name Role Phone Name, Rafiq JENKINS Primary Care Provider [phone] Encounter Details Date Type Department Care Team ([facility] st Contact Info) Description 01/15/2024 Telephone [facility] MED[facility]INE [address] [place], [place] [phone] Name, MD Rafiq [address] [place] [address] Social History Tobacco Use Types Packs/Day Years [...] t he electric, gas, oil or water [employer] threatened to shut off services in your [...] RN - 01/16/2024 11:46 AM EST [facility] surgical notes re: excision of lipoma on posterior neck sent to medical records. * Telephone Encounter - Rah Ferrer - 01/15/2024 10:28 AM EST Tc from patient calling to inform the PCP the patient had a procedure done on the neck on 01/15 at [facility] for skin lumps and was done by was the doctor who preformed the procedure documented in this encounter Plan of Treatment Upcoming Encounters Date Type Department Care Team (Late st Contact Info) Description 02/11/2025 11:30 AM EDT Clinical Support [address] [address] Krysta Huston RN 03/13/2025 10:30 AM EDT Office Visit [facility] MED[facility]INE [address] [place] [address] Name, MD Rafiq [address] [place] [address] documented as of this encounter Visit Diagnoses Not on filedocumented in this encounter Care Teams Internal Sales Relationship Specialty Start Date End Date Name, MD Rafiq [address] [place] [address] PCP - General Family Medicine 12/16/15 documented as of this encounter
--- OUTSIDE RECORDS SUMMARY | 2025-02-02 11:32 | XMS_ITS | Encounter Summary ---
Author Organization [facility] Address [address] [place] [address] Care Team Providers Care Hood Maker Name Role Phone Name, Rafiq JENKINS Primary Care Provider Unavailoj e Rafiq Grace MD Primary Care Provider Unavailabl e Magdalena Coreas JACKHAMMER SPLITTER OPERATOR Unavailable [phone] Mk Rolon MD Unavailable [phone] Encounter Details Date Type Department Care Team Description 03/23/2014 Business Doc Medical Records [address] [place] [address] Abstract, Provider Social History Tobacco Use Types [...] on filedocumented in this encounter Care Teams Hood Maker Relationship Specialty Start Date End Date Rafiq Grace MD PCP - General 07/30/08 01/30/16 Rafiq Grace MD PCP - General Internal Medicine 01/31/16 Magdalena Coreas NP Cardiology 04/14/21 Mk Rolon MD [address] [place] [address] [address] [place] [address] Specialist Cardiovascular Disease 04/14/21 documented as of this encounter
--- OUTSIDE RECORDS SUMMARY | 2025-02-02 11:32 | XMS_ITS | Encounter Summary ---
Author Organization [facility] Address [address] [place] [address] Care Team Providers Care Pump And Still Operator Name Role Phone Name, Rafiq JENKINS Primary Care Provider Unavailabl e Name, Rafiq JENKINS Primary Care Provider Unavailabl e Magdalena Coreas NP Unavailable [phone] Mk Rolon MD Unavailable [phone] Reason for Visit * Reason Comments E-prescribe Rx Request Encounter Details Date Type Department Care Team Description 04/16/2015 Refill Physiatry - [facility] [address] [place] [address] Olivier Rose DO E-prescribe Rx Request Social [...] on filedocumented in this encounter Care Teams Pump And Still Operator Relationship Specialty Start Date End Date Lesly, MD Rafiq PCP - General 07/30/08 01/30/16 Name, MD Rafiq PCP - General Internal Medicine 01/31/16 Magdalena Coreas NP Cardiology 04/14/21 Mk Rolon MD [address] [place] [address] [place] [address] Specialist Cardiovascular Disease 04/14/21 documented as of this encounter
--- OUTSIDE RECORDS SUMMARY | 2025-02-02 11:32 | XMS_ITS | Clinical Summary ---
Author Organization [employer] Address [address] [place] [address] 7[address] [place] [address] Care Team Providers Care Director Of Operations For Therapy Name Role Phone Name, Rafiq JENKINS Primary Care Provider [phone] Allergies Active Allergy Reactions Criticality Noted Date Comments Ibuprofen 07/21/2015 Bleeding from bladder Naproxen 01/17/2016 Medications clopidogrel (Plavix) 75 MG tablet Take 1 tablet by mouth Once daily. 07/14/20 22 Active Diclofenac Sodium 1 % gel APPLY 2 GRAMS TO AFFECTED AREA TWICE A DAY 08/28/20 22 Active ergocalciferol (Vitamin D-2) 1.25 MG (19676 UT) capsule Take 1 capsule by mouth 1 (one) time per week. 02/25/20 21 Active fluticasone (Flovent) 220 MCG/ACT inhaler Inhale 1 puff every 12 (twelve) hours. Rinse mouth after using. 03/25/20 21 Active isosorbide mononitrate ER (Imdur) 60 MG 24 hr tablet Take 1 tablet by mouth Once daily. 03/18/20 22 Active tamsulosin (Flomax) 0.4 MG 24 [...] a day 1 kit 02/05/20 24 Active fluticasone (Flonase) 50 MCG/ACT nasal sprayIndication [...] MG EC tabletIndicatio ns:Coronary artery disease involving eek coronary artery of eek heart without angina pectoris TAKE 1 TABLET BY MOUTH EVERY DAY 90 tablet 1 11/05/20 24 Active albuterol (Ventolin HFA) 108 (90 Base) MCG/ACT inhalerIndicati ons:Mild intermittent asthma, unspecified whether complicated TAKE 2 PUFFS BY MOUTH EVERY 4 TO 6 HOURS NEEDED 18 g 1 01/27/20 25 Active amLODIPine (Norvasc) 2.5 MG tablet Take 1 tablet by mouth Once per day. 11/04/20 24 Active Stool Softener 100 MG capsule Take 1 capsule by mouth Once per day. 01/13/20 25 Active ezetimibe (Zetia) 10 MG tabletIndicatio ns:Hypercholest erolemia TAKE 1 TABLET BY MOUTH EVERY DAY IN THE MORNING 90 tablet 3 02/03/20 25 Active metoprolol tartrate (Lopressor) 100 MG tablet Take 1 tablet (100 mg) by mouth with breakfast and with evening meal. 180 tablet 3 02/03/20 25 Active oxyCODONE-aceta minophen (Percocet) 5-325 MG tabletIndicatio ns:Chronic low back pain, unspecified back pain laterality, unspecified whether sciatica present Take 1 tablet by mouth every 6 (six) hours if needed for severe pain for up to 28 days. 112 tablet 02/03/20 25 025 Active metoprolol tartrate (Lopressor) 100 MG tablet Take 1 tablet by mouth with breakfast and with evening meal. 09/23/20 22 025 Discontinued(R eorder (will not trigger notification to Pharmacy)) ezetimibe (Zetia) 10 MG tabletIndicatio ns:Hypercholest erolemia Take 1 tablet (10 mg) by mouth in the morning. 30 tablet 11 02/08/20 24 025 Discontinued oxyCODONE-aceta minophen (Percocet) 5-325 MG [...] 6 HOURS NEEDED 18 g 12/31/19 25 025 Discontinued oxyCODONE-aceta minophen (Percocet) 5-325 MG tabletIndicatio ns:Chronic low back pain, unspecified back pain laterality, unspecified whether sciatica present Take 1 tablet by mouth every 6 (six) hours if needed for severe pain for up to 28 days. 112 tablet 01/05/20 25 025 Discontinued(R eorder (will not trigger [...] Overview (02/06/2024): He follows at [facility]. Cardiac catheterization was in January 2021 when [...] 01/17/2016 HLD (hyperlipidemia) 01/17/2016 HTN (hypertension) 01/17/2016 Assessment & Plan (02/02/2025 10:20 AM EDT): - Pt is currently prescribed Metoprolol, 100 mg twice daily and Amlodipine, 5mg once daily. Pt is still taking 2.5 mg daily and his BP is at goal. Pt was advised to monitor his home BP and keep taking 2.5 mg daily as long as his BP rest at 120 - 02/02/25 Chronic back pain 01/17/2016 Anxiety 01/17/2016 Lumbar spondylosis 01/17/2016 Old myocardial infarction 01/17/2016 Severe obesity (BMI 35.0-39.9) with comorbidity 07/22/2009 Depression 05/20/2009 Asthma 09/07/2008 Overview (11/23/2022): Only on albuterol. Uses the medication twice per week at most Resolved Problems Problem Noted Date Diagnosed Date Resolved Date DM2 (diabetes mellitus, type 2) 05/02/2023 04/23/2024 Encounters Date Type Department Care Team Description 02/02/2025 9:30 AM EDT Office Visit [facility] [address] [place] [phone] Sayda Hernandez MD Hypertension, unspecified type (Primary Dx); Chest pain, unspecified type; Chronic low back pain, unspecified back pain laterality, unspecified whether sciatica present; Dietary counseling; Exercise counseling; Class 2 severe obesity due to excess calories with serious comorbidity and body mass index (BMI) of 37.0 to 37.9 in adult ([facility]) 02/02/2025 Travel 02/01/2025 Refill [facility] [address] [place] [address] NameRafiq MD Hypercholesterolemia 01/30/2025 Patient Outreach [facility] [address] [place] [address] [phone] Rafiq Grace MD Care Coordination 01/30/2025 Patient Outreach [facility] [address] [place] [address] Rafiq Grace MD Care Coordination ([address] Rosaura Miranda telephone call outreach) 01/29/2025 Telephone [facility] [place] [address] Lesli Antoine MA chartprep 01/26/2025 Patient Outreach [facility] [place] [address] Rafiq Grace MD Transition Of Care (Tcm) (HDF- scheduled and SDOH screening positive and Tobacco screening positive) 01/24/2025 Refill [facility] [place] [address] Rafiq Grace MD Mild intermittent asthma, unspecified whether complicated 01/22/2025 Patient Outreach [place] [address] Rafiq Grace MD Care Coordination (C[facility] -[facility] Rosaura Miranda telephone call outreach) 01/22/2025 Telephone [place] [address] Rafiq Grace MD Care Management (C3- chart review) 01/20/2025 Telephone [place] [address] Rafiq Grace MD FMLA (I called the patient, regarding a FMLA application from [employer]. I informed him that it has been faxed 3 times, and it is not going through. He agreed to have it mailed to [employer], and he will pick up attendant a copy at [facility], to keep for his records. ) 01/05/2025 Refill [facility] [place] [address] Rafiq Grace MD Chronic low back pain, unspecified back pain laterality, unspecified whether sciatica present 12/31/2024 Refill [facility] [place] [address] Latosha Car MD Mild intermittent asthma, unspecified whether complicated 12/25/2024 Orders Only [facility] External Provider, [facility] 12/17/2024 11:30 AM EST Clinical Support [facility] [place], [place] [phone] Krysta Huston RN Chronic pain syndrome (Primary Dx) 12/17/2024 Travel 12/17/2024 Telephone [facility] [place] [address] Krysta Huston, LUCAS Recommend FOLDING MACHINE FEEDER Tier 2 12/05/2024 Refill [facility] [address] [place] [address] Rafiq Grace MD Mild intermittent asthma, unspecified whether complicated 12/05/2024 Refill [facility] [place] [address] Rafiq Grace MD Chronic low back pain, unspecified back pain laterality, unspecified whether sciatica present 12/04/2024 Telephone [facility] [place] [address] Rafiq Grace MD No Show 11/18/2024 Telephone [facility] [place] [address] Rafiq Grace MD CALLBACK REQUESTED 11/18/2024 Telephone [facility] [place] [address] Rafiq Grace MD FMLA (I called the patient regarding an application for FMLA, from [employer]. I reached his voicemail, and left a message asking him to return my call at ext [phone].) 11/05/2024 Refill [facility] [place] [address] Rafiq Grace MD Coronary artery disease involving eek coronary artery of eek heart without angina pectoris 11/05/2024 Refill [facility] [place] [address] Rafiq Grace MD Chronic low back pain, unspecified back pain laterality, unspecified whether sciatica present from Last 3 Months Immunizations Name Administration Dates Next Due HepB-CpG 05/15/2023,04/11/2023 Influenza injectable quadriv alent IIV4 with preservative 11/14/2019,08/28/2016 Influenza injectable quadriv alent preservative free 09/05/2023,08/18/2022,09/03/2017 Influenza, IIV3, injectable 09/10/2015,1 ,08/12/2013,08/20,11/02/2011,04/09/2010,09/07/2008 Influenza, seasonal, injecta ble, preservative free 08/11/2024 Novel [id number], preservative-free 01/26/2010 Pneumococcal Conjugate PCV 20 04/11/2023 Pneumococcal Polysaccharide PPSV23 03/23/2014 TD (adult), 2 Lf tetanus tox oid, preservative free, adsorbed 09/07/2008 Tdap 12/09/2021,06/24/2019,09/07/2008 Zoster, Recombinant 05/23/2023,03/21/2023 Social History Tobacco Use Types Packs/Day Years Used Date Smoking Tobacco: Former Cigarettes 0.5 41 Passive Smoke Exposure: Current Smokeless Tobacco: Never Tobacco Cessation:Counseling Given: Not Answered Alcohol Use Standard Drinks/Week [...] before you got money to buy more: Sometimes True 2024 Within the past 12 months,th e food you bought just didn't last and you didn't have enough money to get more: Sometimes True 01/30/2025 Transportation Answer Date Recorded In the past 12 months, has l ack of transportation kept you from medical appts, meetings, work or from getting things needed for daily living? Yes, it has kept me from medical appointments or getting medications. 01/30/2025 Utilities Answer Date Recorded In the past 12 months, has t he electric, gas, oil or water company threatened to shut off services in your home? No 02/05/2024 Depression Answer Date Recorded Patient Health Questionnaire-2 Score 0 02/05/2024 Internet Access Answer Date Recorded Internet Access Q1 Yes 01/26/2025 Internet Access Q2 Not on file 01/26/2025 Sex and Gender Information Value Date Recorded Sex Assigned at Male 09/25/2022 10:24 AM EDT Legal Sex Male 10:24 AM EDT Gender Identity Male 09/25/2022 10:24 AM EDT Sexual Orientation Straight 09/25/2022 10 :24 AM EDT Last Filed Vital Signs Vital Sign Reading Time Taken Comments Blood Pressure 128/88 02/02/2025 10:00 AM EDT Pulse 59 02/02/2025 9:40 AM EDT Temperature 35.9 ??C (96.6 ??F) 02/02/2025 9:40 AM ED T Respiratory Rate 19 02/02/2025 9:40 AM EDT Oxygen Saturation 97% 02/02/2025 9:40 AM EDT Inhaled Oxygen Concentration - - Weight 96.6 kg (213 lb) 02/02/2025 9:40 AM EDT Height 160 cm (5' 3 ) 02/02/2025 9:40 AM EDT Body Mass Index 37.73 02/02/2025 9:40 AM EDT Plan of Treatment Upcoming Encounters Date Type Department Care Team (Late st Contact Info) Description 02/11/2025 11:30 AM EDT Clinical Support [facility] [address] [place] [phone] Krysta Huston RN 03/13/2025 10:30 AM EDT Office Visit [facility] [address] [place] [address] Name, MD Rafiq [address] [place] [phone] Health Maintenance Due Date Last Done Comments CT Colonography 1967 Dental Prophylaxis 1967 FIT DNA/Cologuard 1967 FIT 1967 FOBT 1965 HIV Screening 1965 Sigmoidoscopy 1967 Hepatitis A Vaccines (1 of 2 - Risk 2-dose series) 1986 Dental Oral Exam 06/15/2023 12/15/2022 Dental X-Ray: Bitewings 12/16/2023 12/15/2022 COVID-19 Vaccine ( season) 2024 12/19/2021, 05/02/2021, 04/04/2021 Diabetes: Hemoglobin A1C 12/03/2024 024, 05/02/2023, 06/28/2022, Additional history exists Depression Screening 02/04/2025 02/05/2024, 02/05/20 Alcohol/Substance Use Screening 10/15/2025 10/15/2024 Dental X-Ray: Full Mouth 12/16/2025 12/15/2022 Colonoscopy 12/24/2025 12/24/2020 Colorectal Cancer Screening 12/24/2025 SDOH Screening 01/30/2026 01/30/2025 Tobacco Screening 02/02/2026 02/02/2025 Lipid Panel 10/17/2029 10/17/2024, 01/24, 02/21/2023, Additional history exists DTaP/Tdap/Td Vaccines (4 - Td or Tdap) 12/09/2031 12/09/2021, 06/24/2019, 09/07/2008, Additional history exists RSV Patients and Patients Aged 60 years or older (1 - 1-dose 75+ series) 2042 Pneumococcal Vaccine: 50+ Years Completed 04/11/2023, 03/23/2014 Hepatitis B Vaccines Completed 05/15/2023, 04/11/20 Zoster Vaccines Completed 05/23/2023, 03/21/2023 Lung Cancer Screening Discontinued 07/03/2023 Hepatitis C Screening Completed 02/06/2024 Influenza Vaccine [...] 10:27 AM EST Coronary artery disease involving eek coronary artery of eek heart with unstable angina pectoris (CMS/HCC) HEPATITIS [...] EST Narrative 12/26/2024 8:17 AM EST ? [facility] ?[address] ?[place] [address] ? Magnetic Resonance Report ? Signed ? Patient: Deidre Colon,Trenton ?MR#: M ?? [id number] ? : 1965 ?Acct:[id number] ? Age/Sex: 59 / M ?ADM Date: 01/30/25 ? Loc: HO.MRI ? Attending Dr: Kristan PETTY ? Ordering Physician: Kristan Oconnell ?? Date of Service: 12/25/24 ?? Procedure(s): MR knee LT wo con ?? Accession Number(s): [id number] ? cc: Kristan Oconnell; Name,Rafiq JENKINS ? [...] ?12/26/24 0814 ? DD/ 04 ? TD/TT: 01/30/25 1925 ? Interior Design Coordinator: ? Procedure Note Donotnighatinterpreter, Image - 12/26/2024 [place] [address] Magnetic Resonance Report Signed Patient: Erick Bejarano#: M [id number] : 1965Acct:[id number] Age/Sex: 59 / MADM Date: 12/25/24 Loc: HO.MRI Attending Dr: Kristan PETTY Ordering Physician: Kristan Oconnell Date of Service: 12/25/24 Procedure(s): MR knee LT wo con Accession Number(s): [id number] cc: Kristan Oconnell; Name,Rafiq JENKINS EXAMINATION: MRI [...] MD Signed By: <Electronically signed by Nicolas Gvain MD in OV> 12/26/24813 DD/ 04 TD/TT: 12/25/241924 Interior Design Coordinator: [facility] External Provider IMG MRI PROCEDURES Final Result * POCT FRANCI-14 Urine Drug Screen (12/17/2024 11:37 AM EST) THC Positive Oxycodone Screen, Urine Positive Urine Urine specimen obtained by clean catch procedure / Unknown 12/17/2024 11:37 AM EST Krysta Moon RN - 12/17/2024 11:37 AM EST UTOX cup Lot#[id number] Exp. 08/20/26 Internal Pass Control Rafiq Grace MD POINT OF CARE TEST ENTER/EDIT OR DERABLES Final Result * FL Esophagus Barium Swallow w/Air (11/27/2024 8:00 AM EST) Anatomical Region Laterality Modality Head, Neck Radiographic Nova ging 11/27/2024 8:00 AM EST Narrative 11/27/2024 4:09 PM EST ? [facility] ?[address] ?[place] [address] ? Fluoroscopy Report ? Signed ? Patient: Deidre Colon,Trenton ?MR#: M ?? [id number] ? : 1965 ?Acct:[id number] ? Age/Sex: 59 / M ?ADM Date: 01/02/25 ? Loc: HO.XRAY ? Attending Dr: Rafiq Grace MD ? Ordering Physician: Rafiq Grace MD ?? Date of Service: 11/27/24 ?? Procedure(s): FL barium swallow with air ?? Accession Number(s): [id number] ? cc: Lesly,Rafiq JENKINS ? EXAMINATION: ?? XR FLUOROSCOPY UPPER GI [...] DD/ 0800 ? TD/TT: 11/27/24 0825 ? Interior Design Coordinator: ? Procedure Note Donhajater, Image - 11/27/2024 [place] [address] Fluoroscopy Report Signed Patient: Erick Bejarano#: M [id number] : 1965Acct:[id number] Age/Sex: 59 / MADM Date: 11/27/24 Loc: CASEY.HYUN Attending Dr: Rafiq Grace MD Ordering Physician: Rafiq Grace MD Date of Service: 11/27/24 Procedure(s): FL barium swallow with air Accession Number(s): [id number] cc: Rafiq Grace MD EXAMINATION: XR FLUOROSCOPY [...] 11/27/24 1609 DD/ 0800 TD/TT: 11/27/24 0825 Interior Design Coordinator: us Rafiq Grace MD [facility] FLUOROSCOPY PROCEDURES Edite d Result - Final * (ABNORMAL) Lipid Panel, Standard (10/17/2024 10:27 AM EST) Triglycerides 164(H) <150 mg/dL [facility] Comment:Desirable Triglyceri de: less than 150 mg/dLBorderline High Triglyceride 150-199 mg/dLHigh Triglyceride: 200-499 mg/dLVery High Triglyceride: greater than or equal to 5OO mg/dL Cholesterol 214(H) <200 mg/dL [facility] Comment:Desirable Cholestero l: less than 200 mg/dLBorderline High Cholesterol: 200-239 mg/dLHigh Cholesterol: greater than 239 mg/dL LDL Cholesterol Calculated 151(H) <100 mg/dL [facility] Comment:Desirable LDL: less than 100 mg/dLNear Optimal/Above Optimal LDL: 110- 129 mg/dLBorderline High LDL: 130-159 mg/dLHigh LDL: 160-189 mg/dLVery High LDL: greater than or equal to 190 mg/dL HDL Cholesterol 31(L) >40 mg/dL [facility] Comment:Desirable HDL: great er than 40 mg/dL Note: This HDL assay may give artificially low results in patients with liver disease. Blood Venous blood specimen / Unknown 10/17/2024 10:27 AM EST 10/17/2024 11:05 AM EST us Rafiq Grace MD LAB BLOOD ORDERABLES Final Resul t Performing Organization Address [facility] Co de Phone Number [facility] [address] [place] [phone] * Hepatitis C Ab (02/06/2024 12:22 PM EDT) Hepatitis C Antibody Nonreactive Nonreactive [facility] Comment:Antibodies to HCV no t detected; does not exclude early acuteHCV infection. Blood Venous blood specimen / Unknown 02/06/2024 12:22 PM EDT 02/06/2024 1:11 PM EDT us Rafiq Grace MD LAB BLOOD ORDERABLES Final Resul t Performing Organization Address [facility] Co de Phone Number [facility] [address] [place] [phone] * POCT HGB A1C (12/03/2023 4:16 PM EST) Hemoglobin A1C 5.6 4.0 - 6.0 % Other 12/03/2023 4:16 PM EST us Rafiq Name POINT OF CARE TEST ENTER/EDIT OR DERABLES Final Result * (ABNORMAL) Lung Cancer Screning (07/03/2023) Lung CT LUNGRADS 0(A) LUNGRADS 1, LUNGRADS 2 Anatomical Region Laterality Modality Other us Lisa Middleton HEALTH MAINTENANCE Final Resul t * Colonoscopy (12/24/2020 12:59 PM EST) Colonoscopy Normal Normal Narrative Danielle Orellana - 12/24/2020 12:59 PM EST Recommended 5 year follow up Historical Provider HEALTH MAINTENANCE Final Result from Last 3 Months or Most Recently Relevant to Health Maintenance Insurance [id number] DENTAL-[facility] MEDICAID STAND ADULT DENTAL - HSN FULL (MEDICAID) DENTAL - [employer] DENTAL [address] [place] [address] [phone] [place] [phone] Care Teams Director Of Operations For Therapy Relationship Specialty Start Date End Date Name, MD Rafiq [address] [place] [phone] PCP - General Family Medicine 12/16/15
--- OUTSIDE RECORDS SUMMARY | 2025-02-02 11:32 | XMS_ITS | Encounter Summary ---
Author Organization [employer] Address [address] [facility] [address] [place] [address] Care Team Providers Care Cullet Washer Name Role Phone Name, Rafiq JENKINS Primary Care Provider [phone] Reason for Visit * Reason Onset Date Comments Med Refill 01/05/2025 Encounter Details Date Type Department Care Team ([facility] st Contact Info) Description 01/05/2025 Refill [facility] [address] [place], [place] [phone] Name, MD Rafiq [address] [place], [place] [phone] Chronic low back pain, unspecified back pain [...] MG tablet To be sent to: [facility]/pharmacy #[id number] - [place] [address] [address] documented in this encounter Plan of Treatment Upcoming Encounters Date Type Department Care Team (Late st Contact Info) Description 02/11/2025 11:30 AM EDT Clinical Support [facility] [address] [place] [phone] Krysta Huston RN 03/13/2025 10:30 AM EDT Office Visit [facility] [address] [place] [phone] Name, MD Rafiq [address] [place] [phone] documented as of this encounter Visit Diagnoses Diagnosis Chronic low back pain, unspecified back pain laterality, unspecified whether sciatica present documented in this encounter Additional Health Concerns Assessment Noted Time PHQ-9 Depression Total Score: 0 02/05/20 24 2:30 PM EDT documented as of this encounter Care Teams Cullet Washer Relationship Specialty Start Date End Date Name, MD Rafiq [address] [place] [address] PCP - General Family Medicine 12/16/15 documented as of this encounter
--- OUTSIDE RECORDS SUMMARY | 2025-02-02 11:33 | XMS_ITS | Clinical Summary ---
Author Organization [facility] Address [address] [place] [address] Care Team Providers Care Business Development Recruiter Name Role Phone Name, Rafiq JENKINS Primary Care Provider Magdalena Esteban SOCIAL MEDIA CAMPAIGN MANAGER Unavailable [phone] Mk Rolon MD Unavailable [phone] Allergies Active Allergy Reactions Severity Noted Date [...] RISK PATIENTS (#2) 2032 03/23/2014 Care Teams Business Development Recruiter Relationship Specialty Start Date End Date Name, MD Rafiq PCP - General Internal Medicine 01/31/16 Magdalena Coreas NP Cardiology 04/14/21 Mk Rolon MD [address] [place] [address] [address] [place] [address] Specialist Cardiovascular Disease 04/14/21
--- OUTSIDE RECORDS SUMMARY | 2025-02-02 11:33 | XMS_ITS | Encounter Summary ---
Author Organization [employer] Address [address] [facility] 7t [place] [address] Care Team Providers Care Elevator Worker Name Role Phone Name, Rafiq JENKINS Primary Care Provider [phone] Reason for Visit * Reason Comments Transition Of Care (Tcm) HDF- scheduled and SDOH screening positive and Tobacco screening positive Encounter Details Date Type Department Care Team ([facility] st Contact Info) Description 01/26/2025 Patient Outreach [facility] [address] [place], [place] [phone] Name, MD Rafiq [address] [place] [address] Transition Of Care (Tcm) (HDF- scheduled and SDOH screening positive and Tobacco screening positive) Social History Tobacco Use Types Packs/Day Years [...] before you got money to buy more: Often true 01/26/2025 Within the past 12 months,th e food you bought just didn't last and you didn't have enough money to get more: Often true 01/2025 Transportation Answer Date Recorded In the past [...] as of this encounter Miscellaneous Notes * Significant Event - Deborah Swain - 01/26/2025 9:06 AM EST 01/26/25 0904 Hospital Discharges and Admission for [facility] Type of Visit Hospital Admission Date of Admission/Visit 01/22/25 Date of Discharge 01/25/25 Facility [facility] Diagnosis Aortic aneurysm of unspecified site, without rupture,Atherosclerotic ulcer of aorta, CAD (coronary artery disease), GERD (gastroesophageal reflux disease),COPD without exacerbation, Low back pain, Fibromyalgia, HTN Disposition Discharged Home Follow-Up Actions Follow-Up Needed Provider appointment Follow-Up Outcome Spoke to Patient;Booked Appointment Initial Contact Date 01/26/25 JOHNNY Lin placed outbound call to patient for HDF outreach. Patient's name and were confirmed. Patient educated on the importance of follow up with provider following inpatient admission. Patient offered an HDF appt. Patient is agreeable to an appointment and has been scheduled for 02/02/2025t 9:30am with Jayda Alicea NP. Insurance verified prior to scheduling. Patient advised to bring to appointment a photo id and insurance card. Patient also notified that a health center pharmacist will be reaching out to them via telephone prior to their scheduled appointment in order to review their medications in preparation for their appointment. Patient provided with education on contacting the Health Center with any questions or concerns prior to the scheduled appointment. Patient educated on extended clinic hours on Mondays and Wednesdays, and Walk-In Urgent Care Located in [facility] of [facility].Patient provided with after-hours line for [facility], , which offer night time triage serviceand option to transfer to non destructive testing technician provider if needed. CC scanned discharge summary into patient's art. Biggest concern for appointment at this time is no concerns at the moment. Appropriate screenings completed in anticipation of appointment. Tobacco screening positive. Will need counseling. SDOHpositive. Patient looking for assistance with Food insecurities. Referral will be placed. documented in this encounter Plan of Treatment Upcoming Encounters Date Type Department Care Team (Late st Contact Info) Description 02/11/2025 11:30 AM EDT Clinical Support [facility] [address] [place] [address] Krysta Huston RN 03/13/2025 10:30 AM EDT Office Visit [facility] [address] [place] [address] NameRafiq MD [address] [place] [address] documented as of this encounter Visit Diagnoses Not on filedocumented in this encounter Additional Health Concerns Assessment Noted Time PHQ-9 Depression Total Score: 0 02/05/20 24 2:30 PM EDT documented as of this encounter Care Teams Elevator Worker Relationship Specialty Start Date End Date Rafiq Grace MD [address] [place] [address] PCP - General Family Medicine 12/16/15 documented as of this encounter
--- OUTSIDE RECORDS SUMMARY | 2025-02-02 11:33 | XMS_ITS | Encounter Summary ---
Author Organization [employer] [facility] Address [address] [place] [address] Care Team Providers Care Environment Artist Name Role Phone Name, Rafiq JENKINS Primary Care Provider Magdalena Esteban NP Unavailable Mk Rolon MD Unavailable [phone] Reason for Visit * Reason Onset Date Comments other 03/15/2021 Cardiac Rehab Encounter Details Date Type Department Care Team Description 03/15/2021 Telephone Cardio [facility] [address] [address] [place] [address] Magdalena Coreas NP [address] [place] [address] Dr Mendes [address] [place] [address] other (Cardiac Rehab ) Social History Tobacco [...] EDT Pt will like to go to [place] [facility] , I will send over all paperwork to the cardiac rehab office in [place] . documented in this encounter Plan of Treatment Not on file documented as of this encounter Visit Diagnoses Not on filedocumented in this encounter Care Teams Environment Artist Relationship Specialty Start Date End Date Name, MD Rafiq PCP - General Internal Medicine 01/31/16 Magdalena Coreas NP Cardiology 04/14/21 Mk Rolon MD [address] [place] [address] [place] [address] Specialist Cardiovascular Disease 04/14/21 documented as of this encounter
--- OUTSIDE RECORDS SUMMARY | 2025-02-02 11:33 | XMS_ITS | Encounter Summary ---
Author Organization [employer] Address [address] [facility] 7t [place] [address] Care Team Providers Care Reformatory Attendant Name Role Phone Name, Rafiq JENKINS Primary Care Provider [phone] Reason for Visit * Reason Comments Care Coordination [facility] outreach Encounter Details Date Type Department Care Team (Latest Contact Info) Description 01/30/2025 Patient Outreach [facility] [address] [place], [place] [phone] Name, MD Rafiq [address] [place] [address] Care Coordination (C3 DESTIN Miranda telephone call [...] encounter Progress Notes * Rosaura Miranda - 01/30/2025 1:20 PM EST CHW Rosaura Miranda, placed outbound call to patient introducing herself from [facility] CM Department, in regards to offering services. Patient's name and was confirmed. Patient agrees toparticipate in program. Appt. for initial assessment scheduled for 02/05/25 @ 1:00PM. CHW reinforceddirect contact information or for any additional questions or concerns and extended clinic hours on Mondays and Wednesdays, and Walk-In Urgent Care Located in [facility] of [facility]. Patient provided with after-hours line for [facility], , which offer night time triage service and option to transfer to environmental research scientist provider if needed. Patient verbalizes understanding, and able to repeat back to typewriters functional tester. documented in this encounter Plan of Treatment Upcoming Encounters Date Type Department Care Team ([facility] st Contact Info) Description 02/11/2025 11:30 AM EDT Clinical Support [facility] [address] [place] [address] Krysta Huston, RN 03/13/2025 10:30 AM EDT Office Visit [facility] [address] [place] [address] Name, MD Rafiq [address] [place] [address] documented as of this encounter Visit Diagnoses Not on filedocumented in this encounter Additional Health Concerns Assessment Noted Time PHQ-9 Depression Total Score: 0 02/05/20 24 2:30 PM EDT documented as of this encounter Care Teams Reformatory Attendant Relationship Specialty Start Date End Date Name, MD Rafiq [address] [place] [address] PCP - General Family Medicine 12/16/15 documented as of this encounter
--- OUTSIDE RECORDS SUMMARY | 2025-02-02 11:33 | XMS_ITS | Encounter Summary ---
Author Organization [employer] Address [address] [facility] 7t [place] [address] Care Team Providers Care Hair Spring Winder Name Role Phone Name, Rafiq JENKINS Primary Care Provider [phone] Reason for Visit * Reason Comments Care Coordination Encounter Details Date Type Department Care Team ([facility] st Contact Info) Description 01/30/2025 Patient Outreach [facility] [address] [place], [place] [phone] Name, MD Rafiq [address] [place] [address] Care Coordination Social History Tobacco Use Types Packs/Day Years [...] Progress Notes * Rosaura Miranda - 01/30/2025 1:30 PM EST CHW Rosaura Miranda placed outbound call to patient introducing herself from [facility] CM Department, in regards to offering CM-CHW program services. Patient's name and was confirmed. Patient agrees to participate in CHW- program for SDOH needs. SDOH screening completed: 01/30/25, CHW spoke to patient he needs help with transportation to the [facility]. CHW reinforced direct contact information for any additional questions or concerns and extended clinic hourson Mondays and Wednesdays, and Walk-In Urgent Care Located in [facility]. Patient provided with after-hours line for [facility], , which offer night time triage service and option to transfer to stone dresser provider if needed. Patient verbalizes understanding, and able to repeat back to senior mortgage underwriter. documented in this encounter Plan of Treatment Upcoming Encounters Date Type Department Care Team ([facility] st Contact Info) Description 02/11/2025 11:30 AM EDT Clinical Support [address] [address] Krysta Huston RN 03/13/2025 10:30 AM EDT Office Visit [facility] [address] [place] [address] Name, MD Rafiq [address] [place] [address] documented as of this encounter Visit Diagnoses Not on filedocumented in this encounter Additional Health Concerns Assessment Noted Time PHQ-9 Depression Total Score: 0 02/05/20 24 2:30 PM EDT documented as of this encounter Care Teams Hair Spring Winder Relationship Specialty Start Date End Date Name, MD Rafiq [address] [place] [address] PCP - General Family Medicine 12/16/15 documented as of this encounter
--- OUTSIDE RECORDS SUMMARY | 2025-02-02 11:33 | XMS_ITS | Encounter Summary ---
Author Organization [facility] Address [address] [place] [address] 7t [place] [address] Care Team Providers Care Director Communications Name Role Phone Name, Rafiq JENKINS Primary Care Provider [phone] Encounter Details Date Type Department Care Team (Late Contact Info) Description 04/27/2023 Abstract [facility] [address] [place] [address] [phone] Name, MD Rafiq [address] [place] [address] [phone] Social History Tobacco Use Types Packs/Day Years [...] Description 02/11/2025 11:30 AM EDT Clinical Support [facility] [address] [place] [address] Krysta Huston RN 03/13/2025 10:30 AM EDT Office Visit [facility] [address] [place] [address] Name, MD Rafiq [address] [place] [address] documented as of this encounter Procedures Procedure [...] on filedocumented in this encounter Care Teams Director Communications Relationship Specialty Start Date End Date Name, MD Rafiq [address] [place] [address] PCP - General Family Medicine 12/16/15 documented as of this encounter
--- OUTSIDE RECORDS SUMMARY | 2025-02-02 11:33 | XMS_ITS | Encounter Summary ---
Author Organization [employer] [facility] Address [address] [place] [address] Care Team Providers Care Python Engineer Name Role Phone Name, Rafiq JENKINS Primary Care Provider Magdalena Esteban PROPERTY MANAGEMENT SPECIALIST Unavailable [phone] Mk Rolon MD Unavailable [phone] Encounter Details Date Type Department Care Team Description 09/18/2019 Release of Information Medical Records [address] [place] [address] Abstract, Provider Social History Tobacco Use Types [...] on filedocumented in this encounter Care Teams Python Engineer Relationship Specialty Start Date End Date Name, MD Rafiq PCP - General Internal Medicine 01/31/16 Magdalena Coreas, SELINA Cardiology 04/14/21 Mk Rooln MD [address] [place] [address] [address] [place] [address] Specialist Cardiovascular Disease 04/14/21 documented as of this encounter
--- OUTSIDE RECORDS SUMMARY | 2025-02-02 11:33 | XMS_ITS | Encounter Summary ---
Author Organization [employer] Address [address] [facility] 7t [place] [address] Care Team Providers Care Willower Name Role Phone Name, Rafiq JENKINS Primary Care Provider [phone] Reason for Visit * Reason Comments Med Change Request Encounter Details Date Type Department Care Team ([facility] st Contact Info) Description 09/24/2023 Refill [facility] [address] [place], [place] [phone] Name, MD Rafiq [address] [place], [place] [phone] Social History Tobacco Use Types Packs/Day Years [...] Description 02/11/2025 11:30 AM EDT Clinical Support [address] [address] Krysta Huston RN 03/13/2025 10:30 AM EDT Office Visit [address] [address] Name, MD Rafiq [address] [place] [address] documented as of this encounter Visit Diagnoses Not on filedocumented in this encounter Care Teams Willower Relationship Specialty Start Date End Date Name, MD Rafiq [address] [place] [address] PCP - General Family Medicine 12/16/15 documented as of this encounter
--- OUTSIDE RECORDS SUMMARY | 2025-02-02 11:33 | XMS_ITS | Encounter Summary ---
Author Organization [facility] Address [address] [place] [address] Care Team Providers Care Runstitching Machine Operator Name Role Phone Name, Rafiq JENKINS Primary Care Provider Magdalena Esteban BODY STRAIGHTENER Unavailable [phone] Mk Rolon MD Unavailable [phone] Encounter Details Date Type Department Care Team Description 11/18/2016 [facility] Medical Records [address] [place] [address] Social History Tobacco Use Types Packs/Day Years [...] on filedocumented in this encounter Care Teams Runstitching Machine Operator Relationship Specialty Start Date End Date Name, MD Rafiq PCP - General Internal Medicine 01/31/16 Magdalena Coreas, SELINA Cardiology 04/14/21 Mk Rolon MD [address] [place] [address] [address] [place] [address] Specialist Cardiovascular Disease 04/14/21 documented as of this encounter
--- OUTSIDE RECORDS SUMMARY | 2025-02-02 11:33 | XMS_ITS | Encounter Summary ---
Author Organization [facility] Address [address] [place] [address] Care Team Providers Care Jail Officer Name Role Phone Name, Rafiq JENKINS Primary Care Provider Magdalena Esteban NP Unavailable [phone] Mk Rolon MD Unavailable Reason for Visit * Reason Onset Date Comments Prior Authorization 11/23/2016 Encounter Details Date Type Department Care Team Description 11/23/2016 Telephone Cardiology - [address] [phone] Nga Aguirre PA-C [address] [place] [address] Prior Authorization Social History Tobacco Use Types [...] from auth dept received call back from [facility]. They have gotten an authorization # for the echocardiogram. Auth # [id number] 12/07/16 - 12/07/17 * Telephone Encounter - Nazia Moran - 12/07/2016 1:53 PM EST Received call back from [facility]. They have gotten an authorization # for the echocardiogram. Auth # [id number] 12/07/16 - 12/07/17 * Telephone Encounter - [...] 12/07/2016 1:30 PM EST Patient now has [facility] and needs a prior auth. Still has Dr. Conroy Name as PCP. He is now at . Called to acquire authorization. Had to leave a [...] on filedocumented in this encounter Care Teams Jail Officer Relationship Specialty Start Date End Date Name, MD Rafiq PCP - General Internal Medicine 01/31/16 Magdalena Coreas NP Cardiology 04/14/21 Mk Rolon MD [address] [place] [address] [place] [address] Specialist Cardiovascular Disease 04/14/21 documented as of this encounter
--- OUTSIDE RECORDS SUMMARY | 2025-02-02 11:33 | XMS_ITS | Encounter Summary ---
Author Organization [employer] [facility] Address [address] [place] [address] Care Team Providers Care Manager Wholesale Name Role Phone Name, Rafiq JENKINS Primary Care Provider Magdalena Esteban NP Unavailable [phone] Mk Rolon MD Unavailable [phone] Encounter Details Date Type Department Care Team Description 02/21/2021 Hospital Medical Records [address] [place] [id number] Social History Tobacco Use Types Packs/Day Years [...] filedocumented in this encounter Care Teams Manager Wholesale Relationship Specialty Start Date End Date Name, MD Rafiq PCP - General Internal Medicine 01/31/16 Magdalena Coreas NP Cardiology 04/14/21 Mk Rolon MD [address] [place] [address] [place] [address] Specialist Cardiovascular Disease 04/14/21 documented as of this encounter
--- OUTSIDE RECORDS SUMMARY | 2025-02-02 11:33 | XMS_ITS | Encounter Summary ---
Author Organization [employer] Address [address] [facility] 7t [place] [address] Care Team Providers Care Student Nurse Name Role Phone Name, Rafiq JENKINS Primary Care Provider [phone] Encounter Details Date Type Department Care Team (Latest Contact Info) Description 02/02/2025 Travel Social History Tobacco Use Types Packs/Day [...] 02/11/2025 11:30 AM EDT Clinical Support [address] [address] Krysta Huston RN 03/13/2025 10:30 AM EDT Office Visit [address] [address] Name, MD Rafiq [address] [place] [address] documented as of this encounter Visit Diagnoses Not on filedocumented in this encounter Additional Health Concerns Assessment Noted Time PHQ-9 Depression Total Score: 0 02/05/20 24 2:30 PM EDT documented as of this encounter Care Teams Student Nurse Relationship Specialty Start Date End Date Rafiq Grace MD [address] [place] [address] PCP - General Family Medicine 12/16/15 documented as of this encounter
--- OUTSIDE RECORDS SUMMARY | 2025-02-02 11:33 | XMS_ITS | Encounter Summary ---
Author Organization [employer] [facility] Address [address] [place] [address] Care Team Providers Care Entry Level Machine Operator Name Role Phone Name, Rafiq JENKINS Primary Care Provider Unavailoj e Rafiq Grace MD Primary Care Provider Unavailabl e Magdalena Coreas STEWARDESS SUPERVISOR Unavailable [phone] Mk Rolon MD Unavailable [phone] Encounter Details Date Type Department Care Team Description 07/16/2014 Hospital Medical Records [address] [place] [address] Lynette Nathan MD Social History Tobacco Use [...] on filedocumented in this encounter Care Teams Entry Level Machine Operator Relationship Specialty Start Date End Date Rafiq Grace MD PCP - General 07/30/08 01/30/16 Rafiq Grace MD PCP - General Internal Medicine 01/31/16 Magdalena Coreas NP Cardiology 04/14/21 Mk Rolon MD [address] [place] [address] [address] [place] [address] Specialist Cardiovascular Disease 04/14/21 documented as of this encounter
--- OUTSIDE RECORDS SUMMARY | 2025-02-02 11:33 | XMS_ITS | Encounter Summary ---
Author Organization [employer] [facility] Address [address] [place] [address] Care Team Providers Care Retail Inventory Control Clerk Name Role Phone Name, Rafiq JENKINS Primary Care Provider Magdalena Esteban RESEARCH COMPUTING SPECIALIST Unavailable [phone] Mk Rolon MD Unavailable [phone] Encounter Details Date Type Department Care Team Description 02/17/2016 Release of Information Medical Records [address] [place] [address] Abstract, Provider Social History Tobacco Use Types [...] on filedocumented in this encounter Care Teams Retail Inventory Control Clerk Relationship Specialty Start Date End Date Name, MD Rafiq PCP - General Internal Medicine 01/31/16 Magdalena Coreas, SELINA Cardiology 04/14/21 Mk Rolon MD [address] [place] [address] [address] [place] [address] Specialist Cardiovascular Disease 04/14/21 documented as of this encounter
--- OUTSIDE RECORDS SUMMARY | 2025-02-02 11:33 | XMS_ITS | Encounter Summary ---
Author Organization [facility] Address [address] [place] [address] 7t [place] [address] Care Team Providers Care Parachute Repairer Name Role Phone Name, Rafiq JENKINS Primary Care Provider [phone] Reason for Visit * Reason Comments Med Refill Encounter Details Date Type Department Care Team (Late Contact Info) Description 03/13/2023 Refill [facility] [address] [place], [place] [phone] Sabine Boyd MD [address], [place] [phone] Social History Tobacco Use Types Packs/Day Years [...] 02/11/2025 11:30 AM EDT Clinical Support [address] [address] Krysta Huston, LUCAS 03/13/2025 10:30 AM EDT Office Visit [address] [address] Name, MD Rafqi [address] [place] [address] documented as of this encounter Visit Diagnoses Not on filedocumented in this encounter Care Teams Parachute Repairer Relationship Specialty Start Date End Date Name, MD Rafiq [address] [place] [address] PCP - General Family Medicine 12/16/15 documented as of this encounter
--- OUTSIDE RECORDS SUMMARY | 2025-02-02 11:33 | XMS_ITS | Encounter Summary ---
Author Organization [facility] Address [address] [place] [address] 7 [place] [address] Care Team Providers Care Loss Prevention Auditor Name Role Phone Name, Rafiq JENKINS Primary Care Provider [phone] Reason for Visit * Reason Comments Med Refill Encounter Details Date Type Department Care Team (Late st Contact Info) Description 08/03/2023 Refill [facility] [address] [place] [address] [phone] Name, MD Rafiq [address] [place] [address] Social History Tobacco Use Types Packs/Day Years [...] 02/11/2025 11:30 AM EDT Clinical Support [address] [phone] Krysta Huston RN 03/13/2025 10:30 AM EDT Office Visit [address] [address] Name, MD Rafiq [address] [place] [address] documented as of this encounter Visit Diagnoses Not on filedocumented in this encounter Care Teams Loss Prevention Auditor Relationship Specialty Start Date End Date Name, MD Rafiq [address] [place] [address] PCP - General Family Medicine 12/16/15 documented as of this encounter
--- OUTSIDE RECORDS SUMMARY | 2025-02-02 11:33 | XMS_ITS | Encounter Summary ---
Author Organization [employer] [facility] Address [address] [place] [address] 7t [place] [address] Care Team Providers Care Hand Icer Name Role Phone Name, Rafiq JENKINS Primary Care Provider [phone] Reason for Visit * Reason Comments Med Refill Encounter Details Date Type Department Care Team (Late Contact Info) Description 06/03/[address] [facility] MEDICINE [address] [place], [place] [phone] Sabine Boyd MD [address] [place], [place] [phone] Tobacco use disorder, continuous Social History Tobacco [...] Description 02/11/2025 11:30 AM EDT Clinical Support [address] [address] Krysta Huston, LUCAS 03/13/2025 10:30 AM EDT Office Visit [address] [address] Name, MD Rafiq [address] [place] [address] documented as of this encounter Visit Diagnoses Diagnosis Tobacco use disorder, continuous Tobacco use disorder documented in this encounter Care Teams Hand Icer Relationship Specialty Start Date End Date Name, MD Rafiq [address] [place] [address] PCP - General Family Medicine 12/16/15 documented as of this encounter
--- OUTSIDE RECORDS SUMMARY | 2025-02-02 11:33 | XMS_ITS | Encounter Summary ---
Author Organization [facility] Address [address] [place] [address] Care Team Providers Care Blacktop Spreader Name Role Phone Name, Rafiq JENKINS Primary Care Provider Magdalena Esteban LUNCHROOM MOTHER Unavailable [phone] Mk Rolon MD Unavailable [phone] Encounter Details Date Type Department Care Team Description 11/22/2016 [facility] Medical Records [address] [place] [address] Social History Tobacco Use Types Packs/Day Years [...] on filedocumented in this encounter Care Teams Blacktop Spreader Relationship Specialty Start Date End Date Name, MD Rafiq PCP - General Internal Medicine 01/31/16 Magdalena Coreas, SELINA Cardiology 04/14/21 Mk Rolon MD [address] [place] [address] [address] [place] [address] Specialist Cardiovascular Disease 04/14/21 documented as of this encounter
--- OUTSIDE RECORDS SUMMARY | 2025-02-02 11:33 | XMS_ITS | Encounter Summary ---
Author Organization [employer] Address [address] [facility] 7t [place] [address] Care Team Providers Care Able Bodied Seaman Name Role Phone Name, Rafiq JENKINS Primary Care Provider [phone] Reason for Visit * Reason Comments Med Refill Encounter Details Date Type Department Care Team ([facility] st Contact Info) Description 02/01/2025 Refill [facility] MEDICINE [address] [place], [place] [phone] Name, MD Rafiq [address] [place], [place] [phone] Hypercholesterolemia Social History Tobacco Use Types Packs/Day Years [...] Description 02/11/2025 11:30 AM EDT Clinical Support [facility] MEDICINE [address] [place] [address] Krysta Huston RN 03/13/2025 10:30 AM EDT Office Visit [facility]ICINE [address] [place] [address] NameRafiq MD [address] [place] [address] documented as of this encounter Visit Diagnoses Diagnosis Hypercholesterolemia Pure hypercholesterolemia documented in this encounter Additional Health Concerns Assessment Noted Time PHQ-9 Depression Total Score: 0 02/05/20 24 2:30 PM EDT documented as of this encounter Care Teams Able Bodied Seaman Relationship Specialty Start Date End Date NameRafiq MD [address] [place] [address] PCP - General Family Medicine 12/16/15 documented as of this encounter
--- OUTSIDE RECORDS SUMMARY | 2025-02-02 11:33 | XMS_ITS | Encounter Summary ---
Author Organization [employer] Address [address] [facility] 7t [place] [address] Care Team Providers Care Mainframe Analyst Name Role Phone Name, Rafiq JENKINS Primary Care Provider [phone] Encounter Details Date Type Department Care Team ([facility] st Contact Info) Description 02/02/2025 9:30 AM EDT Office Visit [facility] MEDICINE [address] [place], [place] [phone] Sayda Hernandez MD [address] [place], [place] [phone] Hypertension, unspecified type (Primary Dx); Chest pain, unspecified type; Chronic low back pain, unspecified back pain laterality, unspecified whether sciatica present; Dietary counseling; Exercise counseling; Class 2 severe obesity due to excess calories with serious comorbidity and body mass index (BMI) of 37.0 to 37.9 in adult ([facility]) Social History Tobacco Use Types Packs/Day Years [...] AM EDT documented as of this encounter Last Filed Vital Signs Vital Sign Reading [...] Mass Index 37.73 02/02/2025 9:40 AM EDT documented in this encounter Miscellaneous Notes * Assessment & Plan Note - Leonila Cespedes MA - 02/02/2025 10:20 AM EDT Associated Problem(s): HTN (hypertension) - Pt is currently prescribed Metoprolol, 100 mg twice daily and Amlodipine, 5mg once daily. Pt is still taking 2.5 mg daily and his BP is at goal. Pt was advised to monitor his home BP and keep taking 2.5 mg daily as long as his BP rest at 120 - 02/02/25 documented in this encounter Plan of Treatment Upcoming Encounters Date Type Department Care Team (Late st Contact Info) Description 02/11/2025 11:30 AM EDT Clinical Support [address] [address] Krysta Huston RN 03/13/2025 10:30 AM EDT Office Visit [address] [address] Name, MD Rafiq [address] [place] [address] Scheduled Orders Name Type Priority Associated Diagnoses Orde r Schedule CBC auto differential Lab Routine Hypertension, unspecified type Expected: 02/02/2025 (Approximate), Expires: 02/02/2026 Comprehensive Metabolic Panel Lab Routine Hypertension, unspecified type Expected: 02/02/2025 (Approximate), Expires: 02/02/2026 documented as of this encounter Visit Diagnoses Diagnosis Hypertension, unspecified type- Primary Chest pain, unspecified type Chronic low back pain, unspecified back pain laterality, unspecified whether sciatica present Dietary counseling Dietary surveillance and counseling Exercise counseling Class 2 severe obesity due to excess calories with serious comorbidity and body mass index (BMI) of 37.0 to 37.9 in adult ([facility]) documented in this encounter Additional Health Concerns Assessment Noted Time PHQ-9 Depression Total Score: 0 02/05/20 24 2:30 PM EDT documented as of this encounter Care Teams Mainframe Analyst Relationship Specialty Start Date End Date Name, MD Rafiq [address] [place] [address] PCP - General Family Medicine 12/16/15 documented as of this encounter
--- OUTSIDE RECORDS SUMMARY | 2025-02-02 11:33 | XMS_ITS | Encounter Summary ---
Author Organization [employer] Address [address] [facility] [address] 7[address] [place] [address] Care Team Providers Care Senior Cost Estimator Name Role Phone Name, Rafiq JENKINS Primary Care Provider [phone] Reason for Visit * Reason Comments Med Refill Encounter Details Date Type Department Care Team ([facility] st Contact Info) Description 01/24/2025 Refill [facility] MEDICINE [address] [place] [address] Name, MD Rafiq [address] [place], [place] [phone] Mild intermittent asthma, unspecified whether complicated Social [...] 11:30 AM EDT Clinical Support [facility] MEDICINE [address] [place] [address] Krysta Huston RN 03/13/2025 10:30 AM EDT Office Visit [address] [address] Name, MD Rafiq [address] [place] [address] documented as of this encounter Visit Diagnoses Diagnosis Mild intermittent asthma, unspecified whether complicated documented in this encounter Additional Health Concerns Assessment Noted Time PHQ-9 Depression Total Score: 0 02/05/20 24 2:30 PM EDT documented as of this encounter Care Teams Senior Cost Estimator Relationship Specialty Start Date End Date Name, MD Rafiq [address] [place] [address] PCP - General Family Medicine 12/16/15 documented as of this encounter
--- OUTSIDE RECORDS SUMMARY | 2025-02-02 11:33 | XMS_ITS | Encounter Summary ---
Author Organization [employer] [facility] Address [address] [place] [address] 7t [place] [address] Care Team Providers Care Research Soil Scientist Name Role Phone Name, Rafiq JENKINS Primary Care Provider [phone] Reason for Visit * Reason Comments Med Refill Encounter Details Date Type Department Care Team (Late Contact Info) Description 06/07/2023 Refill [facility] MEDICINE [address] [place], [place] [phone] Name, MD Rafiq [address] [place] [address] Tobacco use disorder, continuous Social History Tobacco [...] 02/11/2025 11:30 AM EDT Clinical Support [address] [address] Krysta Huston, RN 03/13/2025 10:30 AM EDT Office Visit [address] [address] Name, MD Rafiq [address] [place] [address] documented as of this encounter Visit Diagnoses Diagnosis Tobacco use disorder, continuous Tobacco use disorder documented in this encounter Care Teams Research Soil Scientist Relationship Specialty Start Date End Date Name, MD Rafiq [address] [place] [address] PCP - General Family Medicine 12/16/15 documented as of this encounter
--- OUTSIDE RECORDS SUMMARY | 2025-02-02 11:33 | XMS_ITS | Encounter Summary ---
Author Organization [employer] Address [address] [facility] [address] 7t [place] [address] Care Team Providers Care Online Program Coordinator Name Role Phone Name, Rafiq JENKINS Primary Care Provider [phone] Reason for Visit * Reason Onset Date Comments chartprep 01/29/2025 Encounter Details Date Type Department Care Team ([facility] st Contact Info) Description 01/29/2025 Telephone [facility] MEDICINE [address] [place], [place] [phone] Lesli Antoine MA chartprep Social History Tobacco Use Types Packs/Day Years [...] encounter Miscellaneous Notes * Telephone Encounter - Lesli Antoine MA - 01/29/2025 12:13 PM EST Chart Prep Labs: done Images: done Vaccines due: yes Covid, Hep A Referrals: complete Screenings: n/a Overdue care gaps: PHQ-9, JACKELIN-7 documented in this encounter Plan of Treatment Upcoming Encounters Date Type Department Care Team (Late st Contact Info) Description 02/11/2025 11:30 AM EDT Clinical Support [facility] MEDICINE [address] [place] [address] Krysta Huston RN 03/13/2025 10:30 AM EDT Office Visit [facility] MEDICINE [address] [place] [address] NameRafiq MD [address] [place] [address] documented as of this encounter Visit Diagnoses Not on filedocumented in this encounter Additional Health Concerns Assessment Noted Time PHQ-9 Depression Total Score: 0 02/05/20 24 2:30 PM EDT documented as of this encounter Care Teams Online Program Coordinator Relationship Specialty Start Date End Date NameRafiq MD [address] [place] [address] PCP - General Family Medicine 12/16/15 documented as of this encounter
[2025-02-02 11:59] LABS: Alanine Aminotransferase 53 U/L (0-40); Albumin Level 3.8 g/dL (3.5-5.0); Alkaline Phosphatase 80 U/L (39-117); Anion Gap 8 (12-20); Aspartate Amino Transferase 28 U/L (5-37); Bilirubin Total 0.8 mg/dL (0.0-1.0); Blood Urea Nitrogen 14 mg/dL (9-16); Calcium 8.8 mg/dL (8.4-10.2); Carbon Dioxide 24 mmol/L (22-29); Chloride 114 mmol/L (96-108); Estimated Glomerular Filt Rate > 60; Glucose Random 87 mg/dL (60-115); Sodium 142 mmol/L (135-145)
== END 2025-02-02 10:16 | disposition home or self-care (01) ==
LOC: HO.HHCL 10:15
PROVIDERS: Visit Provider Family Medicine
DX: I10 Essential (primary) hypertension (principal)
CPT/HCPCS: 36415; 80053; 85025

== ENCOUNTER 2025-02-03 09:27 | Outpatient (AMB) | payer MEDICAID, SELFPAY ==
[2025-02-03 09:31] VITALS: BP 132/78; PULSE 70; O2SAT 98; BMI 37.6
--- NOTE | 2025-02-03 09:31 | MHC.OFFVIS ---
Vital Signs 02/03/25 09:31 Height 5 ft 3 in Weight 212 lb BMI 37.6 BP 132/78 Pulse 70 Pulse Source Pulse Oximeter Pulse Oximetry (%) 98 Oxygen Delivery Method Room Air Intake Visit Reasons: pulm clearance (GD with dilation on 02/17. Dr. Calderon) Dungeon Master Required: No Packing Machine Pilot Can Router: Packing Machine Pilot Can Router offered & declined Accompanied by: Self / Same As Patient Allergies naproxen Adverse Reaction (Intermediate, Verified 02/03/25 09:35) kidney problems, hematuria ibuprofen Adverse Reaction (Verified 02/03/25 09:35) hematuria Medication List - Last Reconciled 02/03/25 by Valerie Berumen, CALIN albuterol sulfate 90 mcg/actuation 2 puffs inhalation Q4-6H PRN amlodipine 2.5 mg PO DAILY arm brace As directed aspirin 81 mg PO DAILY atorvastatin 80 mg PO DAILY baclofen 10 mg PO BID clopidogrel 75 mg PO DAILY docusate sodium 100 mg PO QAM ergocalciferol (vitamin D2) (Vitamin D2) 1,250 mcg PO QWEEK ezetimibe 10 mg PO QAM fluticasone furoate-vilanterol 200-25 mcg/dose (Breo Ellipta) 1 inh inhalation DAILY fluticasone propionate 50 mcg/actuation 2 sprays intranasal DAILY hydrocortisone 2.5% (Proctozone-HC) 1 appl AR BID PRN ipratropium bromide 2 sprays intranasal BID isosorbide mononitrate ER 60 mg PO DAILY metoprolol tartrate 100 mg PO BID 90 days multivitamin with folic acid 400 mcg (Daily-Maddi (with folic acid)) 1 tab PO QAM naloxone 4 mg/actuation 0 sprays intranasal nitroglycerin 0.4 mg sublingual Q5M PRN pantoprazole 20 mg PO DAILY simethicone (Gas Relief (simethicone)) 125 mg PO TID-QID PRN tamsulosin 0.4 mg PO BEDTIME umeclidinium 62.5 mcg/actuation (Incruse Ellipta) 1 inh inhalation DAILY HPI HPI pulm clearance (GD with dilation on 02/17. Dr. Calderon): Details: [place] is a pleasant 58 year male current 1/2 ppd smoker with a 40+ pack year history, with underlying asthma/COPD overlap, pulmonary nodules, ASHLEE on CPAP therapy and CAD s/p stents followed by cardiology. Since the last visit he was admitted to [facility] 01/22-01/25 presenting with severe onset chest pain found to have finding of acute penetrating atherosclerotic ulcer or a saccular aneurysm with mural thrombus. He was placed on nicardipine drip and transitioned to oral antihypertensives. Vascular surgery was consulted and patient is reportedly scheduled for follow up on 02/19. He also has upcoming appt with [facility] cardiology on 02/12. After discharge patient began to develop productive cough with brownish sputum and associated chest congestion. Denies fevers, chills or sick contacts. He denies any dyspnea, wheezing or chest tightness/pain. He has been using Breo and Spiriva, minimally requiring albuterol MDI. Of note, he did quit smoking about 1 month ago. [facility] Medical History Hemorrhoids Acid reflux Fibromyalgia Herniated lumbar intervertebral disc Herniated cervical disc Hx of osteoarthritis Bilateral carpal tunnel syndrome Hx of renal calculi Hx of migraine headaches Anxiety and depression Sleep apnea Smoker Asthma Myocardial infarction Elevated cholesterol CAD (coronary artery disease) HTN (hypertension) Surgical History Status post excision of lipoma Hx of colonoscopy History of cardiac cath History of esophagogastroduodenoscopy (EGD) Hx of tonsillectomy Hx of umbilical hernia repair H/O lithotripsy History of PTCA Family History Mother Lung cancer Father Prostate cancer Social History (Updated 02/03/25 @ 09:39 by Valerie Berumen LPN) Household Members: Significant Other and Family Housing: House Are you a primary acute care nurse practitioner to a significant other at home: No Do you presently have visiting nurse or other home services: No 75 years or older and lives alone: No Alcohol intake: current Alcohol intake frequency: holidays/special occasions only Patient Tobacco Use Status: Former Tobacco user Tobacco use type: Cigarette Cigarette Packs Per Day: 0.5 Cigarettes Per Day: 10 Years Smoked: 40/ Quit 12/31/24 Current occupational status: employed 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 Review of Systems Const Denies chills, Denies excessive sweating, Denies fever(s), Denies headache(s) and Denies night sweats Eyes Denies dry eyes, Denies irritation and Denies itchy eyes ENT Reports Normal hearing present and Denies headache(s) Card Denies chest pain, Denies chest pain at rest, Denies chest pain with activity, Denies claudication, Denies leg edema, Denies dyspnea, Denies dyspnea on exertion, Denies orthopnea and Denies paroxysmal nocturnal dyspnea Resp Reports change in phlegm color, Reports chest congestion, Reports cough, Denies hemoptysis, Denies excessive phlegm production, Denies pain on inspiration, Denies pain with cough, Denies dyspnea, Denies dyspnea on exertion, Denies stridor and Denies wheezing Musc Denies myalgias Neuro Reports Normal hearing present and Denies headache(s) Endo Denies excessive sweating Lino/Lymph Denies lymphadenopathy Aller/Immun Denies itchy eyes, Denies seasonal rhinorrhea and Denies wheezing Physical Exam Vital Signs: Last Vital Signs Pulse 70 02/03/25 09:31 BP 132/78 02/03/25 09:31 Pulse Ox 98 02/03/25 09:31 Oxygen Delivery Method Room Air 02/03/25 09:31 BMI result Body Mass Index 37.6 Const General: cooperative, healthy appearing, comfortable, no acute distress, well developed and alert Nutritional Appearance: obese Orientation/consciousness: patient oriented x3 Limitations: no limitations HEENT Head: Yes normal to inspection, Yes normocephalic and Yes atraumatic Ears: hearing grossly normal bilaterally and external ears normal Eyes General: appearance normal, both eyes and all related structures Eyelids: Yes eyelids normal Sclerae: sclerae normal EOM: EOMs intact bilaterally Neck Neck: Yes normal visual inspection and Yes no lymphadenopathy Lymphatic: no lymphadenopathy noted Chest Chest palpation & inspection: normal inspection of the chest Resp Other: LLL inspiratory crackles Effort & Inspection: normal respiratory effort, able to speak in complete sentences, no audible wheezes, no cough, no stridor, not tachypneic, no tripod positioning and no use of accessory muscles Cardio Jugular venous distension: no JVD Rate: regular rate Rhythm: regular rhythm Skin Other: warm, dry General skin exam: no rashes or lesions noted Neuro General: patient oriented x3 Cranial nerves: Yes Normal hearing present Cognition (Neuro): normal cognition Gait exam (Neuro): Normal gait present Extrem General: Yes normal to inspection, Yes capillary refill normal, Yes no clubbing, cyanosis or edema and Yes no pedal edema Psych Appearance: grossly normal and well kempt Speech and movement: Normal speech and movement present and Clear speech present Affect: normal affect Attitude: cooperative Thought process: Normal thought process present Thought content: Normal thought content present Insight: Good insight present (Psych) Judgement: Good judgement present (Psych) Assessment & Plan Assessment & Plan (1) COPD (chronic obstructive pulmonary disease): Code(s): J44.9 - Chronic obstructive pulmonary disease, unspecified Category: Medical (2) Cough: Code(s): R05.9 - Cough, unspecified Category: Medical Plan Will treat bronchitic symptoms with doxycycline and send for CXR. Advised to continue Breo and Spiriva, will enter refills. Patient with multiple upcoming appts for vascular evaluation, cardiology as well as potential procedures/surgeries. Will send for repeat PFT to assess severity of obstructive defect. All questions were answered and patient is in agreement of plan. Will follow up in 4-6 weeks or sooner if needed. Orders: Orders XR chest 2V Today R05.9 - Cough, unspecified Medications: New tiotropium bromide 2.5 mcg/actuation (Spiriva Respimat) 2 puffs inhalation DAILY 4 grams 3RF doxycycline hyclate 100 mg PO BID 14 caps 0RF Refilled fluticasone furoate-vilanterol 200-25 mcg/dose (Breo Ellipta) 1 inh inhalation DAILY 60 ea 6RF albuterol sulfate 90 mcg/actuation 2 puffs inhalation Q4-6H PRN 1 ea 3RF shortness of breath or wheezing Coding Level of Care Code Est Pt Level 4 (18017) Diagnoses COPD (chronic obstructive pulmonary disease) J44.9 Cough R05.9
--- OUTSIDE RECORDS SUMMARY | 2025-02-03 10:36 | XMS_ITS | Encounter Summary ---
Author Organization [facility] Address [address] [place] [address] Care Team Providers Care Hydro Technician Name Role Phone Name, Rafiq JENKINS Primary Care Provider Unavailoj e Rafiq Grace MD Primary Care Provider Unavailabl e Magdalena Coreas CATTLE DEALER Unavailable [phone] Mk Rolon MD Unavailable [phone] Encounter Details Date Type Department Care Team Description 10/01/2010 Hospital Medical Records [address] [place] [address] Alex Be MD Social History Tobacco Use [...] on filedocumented in this encounter Care Teams Hydro Technician Relationship Specialty Start Date End Date Rafiq Grace MD PCP - General 07/30/08 01/30/16 Rafiq Grace MD PCP - General Internal Medicine 01/31/16 Magdalena Coreas NP Cardiology 04/14/21 Mk Rolon MD [address] [place] [address] [address] [place] [address] Specialist Cardiovascular Disease 04/14/21 documented as of this encounter
--- OUTSIDE RECORDS SUMMARY | 2025-02-03 10:36 | XMS_ITS | Encounter Summary ---
Author Organization [employer] [facility] Address [address] [place] [address] Care Team Providers Care Retail Department Supervisor Name Role Phone Name, Rafiq JENKINS Primary Care Provider Unavailoj e Rafiq Grace MD Primary Care Provider Unavailabl e Magdalena Coreas FLUTE GRINDER Unavailable [phone] Mk Rolon MD Unavailable [phone] Encounter Details Date Type Department Care Team Description 09/30/2010 Hospital Medical Records [address] [place] [address] Dayron Herrera MD Social History Tobacco Use [...] filedocumented in this encounter Care Teams Retail Department Supervisor Relationship Specialty Start Date End Date Rafiq Grace MD PCP - General 07/30/08 01/30/16 Rafiq Grace MD PCP - General Internal Medicine 01/31/16 Magdalena Coreas NP Cardiology 04/14/21 Mk Rolon MD [address] [place] [address] [address] [place] [address] Specialist Cardiovascular Disease 04/14/21 documented as of this encounter
--- OUTSIDE RECORDS SUMMARY | 2025-02-03 10:36 | XMS_ITS | Encounter Summary ---
Author Organization [facility] Address [address] [place] [address] Care Team Providers Care Sheet Metal Duct Installer Apprentice Name Role Phone Name, Rafiq JENKINS Primary Care Provider Unavailoj e Rafiq Grace MD Primary Care Provider Unavailabl e Magdalena Coreas TEST DESKMAN Unavailable [phone] Mk Rolon MD Unavailable [phone] Encounter Details Date Type Department Care Team Description 11/20/2013 [facility] [address] [address] Name, MD Rafiq Social History Tobacco Use [...] on filedocumented in this encounter Care Teams Sheet Metal Duct Installer Apprentice Relationship Specialty Start Date End Date Rafiq Grace MD PCP - General 07/30/08 01/30/16 Rafiq Grace MD PCP - General Internal Medicine 01/31/16 Magdalena Coreas NP Cardiology 04/14/21 Mk Rolon MD [address] [place] [address] [address] [place] [address] Specialist Cardiovascular Disease 04/14/21 documented as of this encounter
--- OUTSIDE RECORDS SUMMARY | 2025-02-03 10:36 | XMS_ITS | Encounter Summary ---
Author Organization [facility] Address [address] [place] [address] Care Team Providers Care Procurement Engineer Name Role Phone Name, Rafiq JENKINS Primary Care Provider Unavailabl e Rafiq Grace MD Primary Care Provider Unavailabl e Magdalena Coreas NP Unavailable [phone] Mk Rolon MD Unavailable [phone] Reason for Visit * Reason Onset Date Comments medication problems 08/09/2012 Encounter Details Date Type Department Care Team Description 08/09/2012 Telephone Adult Medicine [address] [address] Name, MD Rafiq medication problems Social History [...] is patients PCP?: Rafiq Grace MD Payor: [email or web address] FFS Plan: FFS HMO $0 Dr[address] Scribbles [id number] Product Type: MEDICAID RISK Pt is not sure he feels there maybe a problem with the medication, he asks that pharmacy is called to explain more fully. documented in this encounter Plan of Treatment Not on file documented as of this encounter Visit Diagnoses Not on filedocumented in this encounter Care Teams Procurement Engineer Relationship Specialty Start Date End Date Rafiq Grace MD PCP - General 07/30/08 01/30/16 Rafiq Grace MD PCP - General Internal Medicine 01/31/16 Magdalena Coreas NP Cardiology 04/14/21 Mk Rolon MD [address] [place] [address] [address] [place] [address] Specialist Cardiovascular Disease 04/14/21 documented as of this encounter
--- OUTSIDE RECORDS SUMMARY | 2025-02-03 10:36 | XMS_ITS | Encounter Summary ---
Author Organization [facility] Address [address] [place] [address] Care Team Providers Care Security Expert Name Role Phone Name, Rafiq JENKINS Primary Care Provider Unavailoj e Rafiq Grace MD Primary Care Provider Unavailabl e Magdalena Coreas FILM DEVELOPER Unavailable [phone] Mk Rolon MD Unavailable [phone] Encounter Details Date Type Department Care Team Description 11/25/2013 Orders Only Physiatry - [place] [address] [place] [address] Ashley Drew PA-C Social History Tobacco Use [...] on filedocumented in this encounter Care Teams Security Expert Relationship Specialty Start Date End Date Rafiq Grace MD PCP - General 07/30/08 01/30/16 Rafiq Grace MD PCP - General Internal Medicine 01/31/16 Magdalena Coreas NP Cardiology 04/14/21 Mk Rolon MD [address] [place] [address] [address] [place] [address] Specialist Cardiovascular Disease 04/14/21 documented as of this encounter
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
--- OUTSIDE RECORDS SUMMARY | 2025-02-03 10:37 | XMS_ITS | Encounter Summary ---
Author Organization [employer] Address [address] [facility] 7t [place] [address] Care Team Providers Care Telecom Specialist Name Role Phone Name, Rafiq JENKINS Primary Care Provider [phone] Reason for Visit * Reason Onset Date Comments Med Refill 01/05/2025 Encounter Details Date Type Department Care Team ([facility] st Contact Info) Description 01/05/2025 Refill [facility] MEDICINE [address] [place], [place] [phone] Name, MD Rafiq [address] [place], [place] [phone] Chronic low back pain, unspecified back pain [...] 5-325 MG tablet To be sent to: [facility][id number] - [place] [address] [address] documented in this encounter Plan of Treatment Upcoming Encounters Date Type Department Care Team (Late st Contact Info) Description 02/11/2025 11:30 AM EDT Clinical Support [facility] MEDICINE [address] [place] [address] Krysta Huston RN 03/13/2025 10:30 AM EDT Office Visit [facility] MEDICINE [address] [place] [address] Name, MD Rafiq [address] [place] [address] documented as of this encounter Visit Diagnoses Diagnosis Chronic low back pain, unspecified back pain laterality, unspecified whether sciatica present documented in this encounter Additional Health Concerns Assessment Noted Time PHQ-9 Depression Total Score: 0 02/05/20 24 2:30 PM EDT documented as of this encounter Care Teams Telecom Specialist Relationship Specialty Start Date End Date Name, MD Rafiq [address] [place] [address] PCP - General Family Medicine 12/16/15 documented as of this encounter
--- OUTSIDE RECORDS SUMMARY | 2025-02-03 10:37 | XMS_ITS | Encounter Summary ---
Author Organization [facility] [facility] Address [address] [place] [address] Care Team Providers Care Nerve Specialist Name Role Phone Name, Rafiq JENKINS Primary Care Provider Unavailoj e Rafiq Grace MD Primary Care Provider Unavailabl e Magdalena Coreas VP SECURITY Unavailable [phone] Mk Rolon MD Unavailable [phone] Encounter Details Date Type Department Care Team Description 03/13/2012 Parachute/Combatant Diver Officer Report Medical Records [address] [place] [address] Keny Rodriguez MD Social History Tobacco Use [...] on filedocumented in this encounter Care Teams Nerve Specialist Relationship Specialty Start Date End Date Rafiq Grace MD PCP - General 07/30/08 01/30/16 Rafiq Grace MD PCP - General Internal Medicine 01/31/16 Magdalena Coreas NP Cardiology 04/14/21 Mk Rolon MD [address] [place] [address] [address] [place] [address] Specialist Cardiovascular Disease 04/14/21 documented as of this encounter
--- OUTSIDE RECORDS SUMMARY | 2025-02-03 10:37 | XMS_ITS | Encounter Summary ---
Author Organization [employer] [facility] Address [address] [place] [address] Care Team Providers Care Night Cleaner Name Role Phone Name, Rafiq JENKINS Primary Care Provider Unavailoj e Rafiq Grace MD Primary Care Provider Unavailabl e Magdalena Coreas CATEGORY DEVELOPMENT MANAGER Unavailable [phone] Mk Rolon MD Unavailable [phone] Encounter Details Date Type Department Care Team Description 03/18/2014 Transfer Records Medical Records [address] [place] [address] Abstract, Provider Social History Tobacco Use Types [...] on filedocumented in this encounter Care Teams Night Cleaner Relationship Specialty Start Date End Date Rafiq Grace MD PCP - General 07/30/08 01/30/16 Rafiq Grace MD PCP - General Internal Medicine 01/31/16 Magdalena Coreas NP Cardiology 04/14/21 Mk Rolon MD [address] [place] [address] [address] [place] [address] Specialist Cardiovascular Disease 04/14/21 documented as of this encounter
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
--- OUTSIDE RECORDS SUMMARY | 2025-02-03 10:37 | XMS_ITS | Encounter Summary ---
Author Organization [facility] Address [address] [place] [address] Care Team Providers Care Scroll Assembler Name Role Phone Name, Rafiq JENKINS Primary Care Provider Unavailabl e Name, Rafiq JENKINS Primary Care Provider Unavailabl e Magdalena Coreas NP Unavailable [phone] Mk Rolon MD Unavailable [phone] Reason for Visit * Reason Comments E-prescribe Rx Request Encounter Details Date Type Department Care Team Description 04/16/2015 Refill Physiatry - [place] [address] [place] [address] Olivier Rose DO E-prescribe Rx Request Social [...] on filedocumented in this encounter Care Teams Scroll Assembler Relationship Specialty Start Date End Date Lesly, MD Rafiq PCP - General 07/30/08 01/30/16 Name, MD Rafiq PCP - General Internal Medicine 01/31/16 Magdalena Coreas NP Cardiology 04/14/21 Mk Rolon MD [address] [place] [address] [place] [address] Specialist Cardiovascular Disease 04/14/21 documented as of this encounter
--- OUTSIDE RECORDS SUMMARY | 2025-02-03 10:37 | XMS_ITS | Encounter Summary ---
Author Organization [email or web address] [facility] Address [address] [place] [address] Care Team Providers Care Anodiser Name Role Phone Name, Rafiq JENKINS Primary Care Provider Unavailabl e Name, Rafiq JENKINS Primary Care Provider Unavailabl e Magdalena Coreas NP Unavailable [phone] Mk Rolon MD Unavailable [phone] Reason for Referral * Specialist (Routine) - Authorized/Booked Specialty Diagnoses / Procedures Referred By Heavenly brown Referred To Contact ORTHOPEDICS / Orthopedic Procedures REFERRAL TO ORTHOPEDICS Vidhya Esparza MD [address] [place] [address] [place] [id number] Ortho/[address] [address] Referral ID Status Reason Start Date Expiration Date V isits Requested Visits Authorized NOT REQUIRED Authorized/ Booked 09/10/2014 09/10/2015 1 1 Reason for Visit * Reason Onset Date Comments Team Guide Feedback 09/09/2014 Orthopedic Encounter Details Date Type Department Care Team Description 09/09/2014 Telephone Physiatry - [place] [address] [place] [address] Vidhya Esparza MD [address] [place] [address] [place] [id number] Team Guide Feedback (Orthopedic) Social History Tobacco Use Types [...] patient to orthopedics to be seen at [facility]. [facility] will not longer be accepting patients insurance. I have place a new order, please review and sign pended order. Thank you Jo Referrals Coordinator [facility] Referrals Department documented in this encounter Plan of Treatment Not on file documented as of this encounter Visit Diagnoses Not on filedocumented in this encounter Care Teams Anodiser Relationship Specialty Start Date End Date Rafiq Grace MD PCP - General 07/30/08 01/30/16 Name, MD Rafiq PCP - General Internal Medicine 01/31/16 Magdalena Coreas NP Cardiology 04/14/21 Mk Rolon MD [address] [place] [address] [address] [place] [address] Specialist Cardiovascular Disease 04/14/21 documented as of this encounter
--- OUTSIDE RECORDS SUMMARY | 2025-02-03 10:37 | XMS_ITS | Encounter Summary ---
Author Organization [facility] Address [address] [place] [address] Care Team Providers Care Lumber Handler Name Role Phone Name, Rafiq JENKINS Primary Care Provider Unavailoj e Rafiq Grace MD Primary Care Provider Unavailabl e Magdalena Coreas ALLIANCE MANAGER Unavailable [phone] Mk Rolon MD Unavailable [phone] Encounter Details Date Type Department Care Team Description 08/12/2014 Hospital Medical Records [address] [place] [address] Violet Swanson MD Social History Tobacco Use [...] on filedocumented in this encounter Care Teams Lumber Handler Relationship Specialty Start Date End Date Rafiq Grace MD PCP - General 07/30/08 01/30/16 Rafiq Grace MD PCP - General Internal Medicine 01/31/16 Magdalena Coreas NP Cardiology 04/14/21 Mk Rolon MD [address] [place] [address] [address] [place] [address] Specialist Cardiovascular Disease 04/14/21 documented as of this encounter
--- OUTSIDE RECORDS SUMMARY | 2025-02-03 10:37 | XMS_ITS | Encounter Summary ---
Demographics Address [address] [facility] [address] [place] [address] Mobile Phone Work Phone Home Phone Preferred Language es Marital Status Single Adventist Affiliation Unknown Race White Ethnic Group or Author Organization [employer] Address [address] [facility] 7t [place] [address] Care Team Providers Care Animal Treatment Investigator Name Role Phone Name, Rafiq JENKINS Primary Care Provider [phone] Reason for Visit * Reason Onset Date Comments Med Refill 06/12/2024 Encounter Details Date Type Department Care Team ([facility] st Contact Info) Description 06/12/2024 Telephone [facility] MEDICINE [address] [place], [place] [phone] Name, MD Rafiq [address] [place] [address] Med Refill Social History Tobacco Use Types [...] PM EDT Mass pat checked and meds. [facility] for approval. * Telephone Encounter - Rah Ferrer - 06/12/2024 9:30 AM EDT TC from pt requesting medication refill. Medications needing refill : oxyCODONE-acetaminophen (Percocet) 5-325 MG tablet To be sent to: [facility] #[id number] AT [address] [facility] documented in this encounter Plan of Treatment Upcoming Encounters Date Type Department Care Team (Late st Contact Info) Description 02/11/2025 11:30 AM EDT Clinical Support [facility] MEDICINE [address] [place] [address] Krysta Huston RN 03/13/2025 10:30 AM EDT Office Visit [facility] MEDICINE [address] [place] [address] Name, MD Rafiq [address] [place] [address] documented as of this encounter Visit Diagnoses Not on filedocumented in this encounter Additional Health Concerns Assessment Noted Time PHQ-9 Depression Total Score: 0 02/05/20 24 2:30 PM EDT documented as of this encounter Care Teams Animal Treatment Investigator Relationship Specialty Start Date End Date Name, MD Rafiq [address] [place] [address] PCP - General Family Medicine 12/16/15 documented as of this encounter
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
--- OUTSIDE RECORDS SUMMARY | 2025-02-03 10:37 | XMS_ITS | Clinical Summary ---
Author Organization [facility] Address [address] [place] [address] Care Team Providers Care Glass Blower Name Role Phone Name, Rafiq JENKINS Primary Care Provider [phone] Surgical History Surgery Date Site/Laterality Comments OTHER SURGICAL HISTORY PROCEDURE: ---- OTHER ----; COMMENT: cardiac cath ESOPHAGOGASTRODUODENOSCOPY 03/28/10 PROCEDURE: LA ESOPHAGOGASTRODUODENOSCOPY TRANSORAL DIAGNOSTIC; COMMENT: normal TONSILLECTOMY PROCEDURE: [...] age to complete this topic Care Teams Glass Blower Relationship Specialty Start Date End Date Name, MD Rafiq [address] [place], [place] PCP - General Internal Medicine 07/30/08
--- OUTSIDE RECORDS SUMMARY | 2025-02-03 10:37 | XMS_ITS | Encounter Summary ---
Author Organization [employer] Address [address] [facility] 7t [place] [address] Care Team Providers Care Publicist Name Role Phone Name, Rafiq JENKINS Primary Care Provider [phone] Reason for Visit * Reason Comments Care Coordination C3 -KIMBERLY hand telephone call outreach Encounter Details Date Type Department Care Team (Latest Contact Info) Description 01/22/2025 Patient Outreach [facility] MEDICINE [address] [place], [place] [phone] Name, MD Rafiq [address] [place] [address] Care Coordination (C3 DESTIN Miranda telephone call [...] to offer services. CHW introducing herself from [facility] CM Department with CHW's name, department and direct contact number requesting call back. Will re-attempt to contact within 5 days. and address not confirmed. documented in this encounter Plan of Treatment Upcoming Encounters Date Type Department Care Team (Late st Contact Info) Description 02/11/2025 11:30 AM EDT Clinical Support [facility] MEDICINE [address] [place] [address] Krysta Huston RN 03/13/2025 10:30 AM EDT Office Visit [facility] MEDICINE [address] [place] [address] Name, MD Rafiq [address] [place] [address] documented as of this encounter Visit Diagnoses Not on filedocumented in this encounter Additional Health Concerns Assessment Noted Time PHQ-9 Depression Total Score: 0 02/05/20 24 2:30 PM EDT documented as of this encounter Care Teams Publicist Relationship Specialty Start Date End Date Name, MD Rafiq [address] [place] [address] PCP - General Family Medicine 12/16/15 documented as of this encounter
--- OUTSIDE RECORDS SUMMARY | 2025-02-03 10:37 | XMS_ITS | Encounter Summary ---
Author Organization [email or web address] [facility] Address [address] [facility] 7t [place] [address] Care Team Providers Care Tricot Knitting Machine Operator Name Role Phone Name, Rafiq JENKINS Primary Care Provider [phone] Reason for Visit * Reason Onset Date Comments Care Management 01/22/2025 [facility]- chart revi ew Encounter Details Date Type Department Care Team ([facility] Contact Info) Description 01/22/2025 Telephone [facility] MEDICINE [address] [place], [place] [phone] Name, MD Rafiq [address] [place] [address] Care Management (C3CM- chart review) Social History [...] use disorder continuous. Specialists include hand surgery [facility] orthoped[facility], [facility] GI, podiatry, ophthalmology, [facility] cardiology, [facility] pain management[facility] pulmonology, [facility] orthopedics, [facility] general surgery. ED visits within the last 12 months include [facility] 01/21. Last appointment in PCP office on 10/15/24. Next appointment scheduled for 03/13/25. documented in this encounter Plan of Treatment Upcoming Encounters Date Type Department Care Team (Late st Contact Info) Description 02/11/2025 11:30 AM EDT Clinical Support [address] [address] Krysta Huston RN 03/13/2025 10:30 AM EDT Office Visit [facility] MEDICINE [address] [place] [address] Name, MD Rafiq [address] [place] [address] documented as of this encounter Visit Diagnoses Not on filedocumented in this encounter Additional Health Concerns Assessment Noted Time PHQ-9 Depression Total Score: 0 02/05/20 24 2:30 PM EDT documented as of this encounter Care Teams Tricot Knitting Machine Operator Relationship Specialty Start Date End Date Name, MD Rafiq [address] [place] [address] PCP - General Family Medicine 12/16/15 documented as of this encounter
--- OUTSIDE RECORDS SUMMARY | 2025-02-03 10:37 | XMS_ITS | Encounter Summary ---
Author Organization [employer] [facility] Address [address] [place] [address] Care Team Providers Care Balance Screwhead Polisher Name Role Phone Name, Rafiq JENKINS Primary Care Provider Unavailoj e Rafiq Grace MD Primary Care Provider Unavailabl e Magdalena Coreas LOCKSTITCH WAISTBAND SETTER Unavailable [phone] Mk Rolon MD Unavailable [phone] Encounter Details Date Type Department Care Team Description 02/27/2012 Hospital Medical Records [address] [place] [address] Keny Rodriguez MD Social History Tobacco Use [...] on filedocumented in this encounter Care Teams Balance Screwhead Polisher Relationship Specialty Start Date End Date Rafiq Grace MD PCP - General 07/30/08 01/30/16 Rafiq Grace MD PCP - General Internal Medicine 01/31/16 Magdalena Coreas NP Cardiology 04/14/21 Mk Rolon MD [address] [place] [address] [address] [place] [address] Specialist Cardiovascular Disease 04/14/21 documented as of this encounter
--- OUTSIDE RECORDS SUMMARY | 2025-02-03 10:37 | XMS_ITS | Encounter Summary ---
Author Organization [facility] Address [address] [place] [address] Care Team Providers Care Custom Applicator Name Role Phone Name, Rafiq JENKINS Primary Care Provider Unavailabl e Name, Rafiq JENKINS Primary Care Provider Unavailabl e Magdalena Coreas NP Unavailable [phone] Mk Rolon MD Unavailable [phone] Reason for Visit * Reason Onset Date Comments Provider Call Back 09/20/2012 Encounter Details Date Type Department Care Team Description 09/20/2012 Telephone Physiatry - [address] [address] Olivier Rose DO Provider Call Back Social [...] on filedocumented in this encounter Care Teams Custom Applicator Relationship Specialty Start Date End Date Name, MD Rafiq PCP - General 07/30/08 01/30/16 Name, MD Rafiq PCP - General Internal Medicine 01/31/16 Magdalena Coreas NP Cardiology 04/14/21 Mk Rolon MD [address] [place] [address] [address] [place] [address] Specialist Cardiovascular Disease 04/14/21 documented as of this encounter
--- OUTSIDE RECORDS SUMMARY | 2025-02-03 10:37 | XMS_ITS | Encounter Summary ---
Author Organization [facility] Address [address] [place] [address] Care Team Providers Care Kids Club Attendant Name Role Phone Name, Rafiq JENKINS Primary Care Provider Unavailoj e Rafiq Grace MD Primary Care Provider Unavailabl e Magdalena Coreas CRUMB PACKER Unavailable [phone] Mk Rolon MD Unavailable [phone] Encounter Details Date Type Department Care Team Description 01/16/2013 Plate Take Out Worker Report Medical Records [address] [place] [address] Juanjose Palafox MD Social History Tobacco Use [...] on filedocumented in this encounter Care Teams Kids Club Attendant Relationship Specialty Start Date End Date Rafiq Grace MD PCP - General 07/30/08 01/30/16 Rafiq Grace MD PCP - General Internal Medicine 01/31/16 Magdalena Coreas NP Cardiology 04/14/21 Mk Rolon MD [address] [place] [address] [address] [place] [address] Specialist Cardiovascular Disease 04/14/21 documented as of this encounter
--- OUTSIDE RECORDS SUMMARY | 2025-02-03 10:38 | XMS_ITS | Encounter Summary ---
Author Organization [employer] Address [address] 7t [place] [address] Care Team Providers Care Cdl Service Technician Name Role Phone Name, Rafiq JENKINS Primary Care Provider [phone] Reason for Visit * Reason Onset Date Comments chartprep 01/29/2025 Encounter Details Date Type Department Care Team ([facility] st Contact Info) Description 01/29/[address] [facility] MEDICINE [address] [place], [place] [phone] Lesli Antoine MA chartprep Social History Tobacco [...] AM EDT Clinical Support [facility] MEDICINE [address] [place] [address] Krysta Huston RN 03/13/2025 10:30 AM EDT Office Visit [facility] MEDICINE [address] [place] [address] NameRafiq MD [address] [place] [address] documented as of this encounter Visit Diagnoses Not on filedocumented in this encounter Additional Health Concerns Assessment Noted Time PHQ-9 Depression Total Score: 0 02/05/20 24 2:30 PM EDT documented as of this encounter Care Teams Cdl Service Technician Relationship Specialty Start Date End Date NameRafiq MD [address] [place] [address] PCP - General Family Medicine 12/16/15 documented as of this encounter
--- OUTSIDE RECORDS SUMMARY | 2025-02-03 10:38 | XMS_ITS | Encounter Summary ---
Author Organization [employer] Address [address] [facility] 7t [place] [address] Care Team Providers Care Blacksmith Apprentice Name Role Phone Name, Rafiq JENKINS Primary Care Provider [phone] Reason for Visit * Reason Comments Care Coordination Encounter Details Date Type Department Care Team ([facility] st Contact Info) Description 01/30/2025 Patient Outreach [facility] MEDICINE [address] [place], [place] [phone] Name, MD Rafiq [address] [place] [address] Care Coordination Social History Tobacco Use Types [...] outbound call to patient introducing herself from [facility] CM Department, in regards to offering CM-CHW program services. Patient's name and was confirmed. Patient agrees to participate in CHW- program for SDOH needs. SDOH screening completed: 01/30/25, CHW spoke to patient he needs help with transportation to the [facility]. CHW reinforced direct contact information for any additional questions or concerns and extended clinic hourson Mondays and Wednesdays, and Walk-In Urgent Care Located in [facility]. Patient provided with after-hours line for [facility], , which offer night time triage service and option to transfer to template reproduction technician provider if needed. Patient verbalizes understanding, and able to repeat back to copy writer. documented in this encounter Plan of Treatment Upcoming Encounters Date Type Department Care Team ([facility] st Contact Info) Description 02/11/2025 11:30 AM EDT Clinical Support [address] [address] Krysta Huston RN 03/13/2025 10:30 AM EDT Office Visit [facility] MEDICINE [address] [place] [address] Name, MD Rafiq [address] [place] [address] documented as of this encounter Visit Diagnoses Not on filedocumented in this encounter Additional Health Concerns Assessment Noted Time PHQ-9 Depression Total Score: 0 02/05/20 24 2:30 PM EDT documented as of this encounter Care Teams Blacksmith Apprentice Relationship Specialty Start Date End Date Name, MD Rafiq [address] [place] [address] PCP - General Family Medicine 12/16/15 documented as of this encounter
--- OUTSIDE RECORDS SUMMARY | 2025-02-03 10:38 | XMS_ITS | Encounter Summary ---
Author Organization [employer] Address [address] [facility] [address] [facility] [address] 7t [place] [address] Care Team Providers Care Dispatch Machine Runner Name Role Phone Name, Rafiq JENKINS Primary Care Provider [phone] Reason for Visit * Reason Comments Med Refill Encounter Details Date Type Department Care Team ([facility] st Contact Info) Description 01/24/2025 Refill [facility] MEDICINE [address] [place] [address] Name, MD Rafiq [address] [place], [place] [phone] Mild intermittent asthma, unspecified whether complicated Social [...] Clinical Support [facility] MEDICINE [address] [place] [address] Krysta Huston RN 03/13/2025 10:30 AM EDT Office Visit [address] [address] Name, MD Rafiq [address] [place] [address] documented as of this encounter Visit Diagnoses Diagnosis Mild intermittent asthma, unspecified whether complicated documented in this encounter Additional Health Concerns Assessment Noted Time PHQ-9 Depression Total Score: 0 02/05/20 24 2:30 PM EDT documented as of this encounter Care Teams Dispatch Machine Runner Relationship Specialty Start Date End Date Name, MD Rafiq [address] [place] [address] PCP - General Family Medicine 12/16/15 documented as of this encounter
--- OUTSIDE RECORDS SUMMARY | 2025-02-03 10:38 | XMS_ITS | Encounter Summary ---
Author Organization [facility] Address [address] [place] [address] 7t [place] [address] Care Team Providers Care Time Clock Inspector Name Role Phone Name, Rafiq JENKINS Primary Care Provider [phone] Encounter Details Date Type Department Care Team (Late Contact Info) Description 04/27/2023 Abstract [facility] MEDICINE [address] [place] [address] [phone] Name, MD Rafiq [address] [place] [address] [phone] Social History Tobacco Use Types Packs/Day Years [...] EDT Clinical Support [facility] MEDICINE [address] [place] [address] Krysta Huston RN 03/13/2025 10:30 AM EDT Office Visit [facility] MEDICINE [address] [place] [address] Name, MD Rafiq [address] [place] [address] documented as of this encounter Procedures Procedure [...] on filedocumented in this encounter Care Teams Time Clock Inspector Relationship Specialty Start Date End Date Name, MD Rafiq [address] [place] [address] PCP - General Family Medicine 12/16/15 documented as of this encounter
--- OUTSIDE RECORDS SUMMARY | 2025-02-03 10:38 | XMS_ITS | Encounter Summary ---
Author Organization [employer] Address [address] [facility] 7t [place] [address] Care Team Providers Care Snuff Packing Machine Operator Name Role Phone Name, Rafiq JENKINS Primary Care Provider [phone] Reason for Visit * Reason Comments Care Coordination [facility] outreach Encounter Details Date Type Department Care Team (Latest Contact Info) Description 01/30/2025 Patient Outreach [facility] MEDICINE [address] [place], [place] [phone] Name, MD Rafiq [address] [place] [address] Care Coordination (C3 DESTIN Miranda telephone call [...] Miranda - 01/30/2025 1:20 PM EST CHW Rosuara Miranda, placed outbound call to patient introducing herself from [facility] CM Department, in regards to offering services. Patient's name and was confirmed. Patient agrees toparticipate in program. Appt. for initial assessment scheduled for 02/05/25 @ 1:00PM. CHW reinforceddirect contact information or for any additional questions or concerns and extended clinic hours on Mondays and Wednesdays, and Walk-In Urgent Care Located in [facility] of [facility]. Patient provided with after-hours line for [facility], , which offer night time triage service and option to transfer to conveyor loader provider if needed. Patient verbalizes understanding, and able to repeat back to customs entry writer. documented in this encounter Plan of Treatment Upcoming Encounters Date Type Department Care Team ([facility] st Contact Info) Description 02/11/2025 11:30 AM EDT Clinical Support [facility] MEDICINE [address] [place] [address] Krysta Huston, RN 03/13/2025 10:30 AM EDT Office Visit [facility] MEDICINE [address] [place] [address] Name, MD Rafiq [address] [place] [address] documented as of this encounter Visit Diagnoses Not on filedocumented in this encounter Additional Health Concerns Assessment Noted Time PHQ-9 Depression Total Score: 0 02/05/20 24 2:30 PM EDT documented as of this encounter Care Teams Snuff Packing Machine Operator Relationship Specialty Start Date End Date Name, MD Rafiq [address] [place] [address] PCP - General Family Medicine 12/16/15 documented as of this encounter
--- OUTSIDE RECORDS SUMMARY | 2025-02-03 10:38 | XMS_ITS | Encounter Summary ---
Author Organization [employer] Address [address] [facility] 7t [place] [address] Care Team Providers Care Marketing Director Assisted Living Name Role Phone Name, Rafiq JENKINS Primary Care Provider [phone] Reason for Visit * Reason Comments Med Refill Encounter Details Date Type Department Care Team ([facility] st Contact Info) Description 02/01/2025 Refill [facility] MEDICINE [address] [place], [place] [phone] Name, MD Rafiq 230 [place], [place] [phone] Hypercholesterolemia Social History Tobacco Use Types Packs/Day Years Used Date Smoking Tobacco: Every Day Cigarettes 0.5 41 Passive Smoke Exposure: Current Smokeless Tobacco: Never Alcohol Use Standard Drinks/Week Comments Yes 3 (1 standard drink = 0.6 oz pur e alcohol) social Depression Answer Date Recorded Patient Health Questionnaire-9 Score 10 02/02/2025 Patient Health Questionnaire-9 Score 10 02/02/2025 Last PHQ-9: Questionnaire Data Not on file 0 02/02/2025 Housing Stability Answer Date Recorded What is [...] Answer Date Recorded Patient Health Questionnaire-2 Score 3 02/02/2025 Internet Access Answer Date Recorded Internet Access [...] 02/11/2025 11:30 AM EDT Clinical Support [facility] MEDICINE [address] [place] [address] Krysta Huston RN 03/13/2025 10:30 AM EDT Office Visit [facility] MEDICINE [address] [place] [address] NameRafiq MD [address] [place] [address] documented as of this encounter Visit Diagnoses Diagnosis Hypercholesterolemia Pure hypercholesterolemia documented in this encounter Additional Health Concerns Assessment Noted Time PHQ-9 Depression Total Score: 0 02/05/20 24 2:30 PM EDT documented as of this encounter Care Teams Marketing Director Assisted Living Relationship Specialty Start Date End Date NameRafiq MD [address] [place] [address] PCP - General Family Medicine 12/16/15 documented as of this encounter
--- OUTSIDE RECORDS SUMMARY | 2025-02-03 10:38 | XMS_ITS | Encounter Summary ---
Author Organization [facility] Address [address] [place] [address] Care Team Providers Care Flat Cutter Name Role Phone Name, Rafiq JENKINS Primary Care Provider UnavailMagdalena Dalton SALVATIONIST Unavailable [phone] Mk Rolon MD Unavailable [phone] Encounter Details Date Type Department Care Team Description 05/29/2017 SCAN Medical Records [address] [place] [place] [address] Ethan Mcnamara PA-C Social History Tobacco Use [...] on filedocumented in this encounter Care Teams Flat Cutter Relationship Specialty Start Date End Date Name, MD Rafiq PCP - General Internal Medicine 01/31/16 Magdalena Coreas NP Cardiology 04/14/21 Mk Rolon MD [address] [place] [address] [address] [place] [address] Specialist Cardiovascular Disease 04/14/21 documented as of this encounter
--- OUTSIDE RECORDS SUMMARY | 2025-02-03 10:38 | XMS_ITS | Encounter Summary ---
Author Organization [employer] Address [address] [facility] 7t [place] [address] Care Team Providers Care Fastener Technologist Name Role Phone Name, Rafiq JENKINS Primary Care Provider [phone] Reason for Visit * Reason Comments Med Change Request Encounter Details Date Type Department Care Team ([facility] st Contact Info) Description 09/24/2023 Refill [facility] MEDICINE [address] [place], [place] [phone] Name, MD Rafiq [address] [place], [place] [phone] Social History Tobacco Use Types Packs/Day Years [...] 02/11/2025 11:30 AM EDT Clinical Support [address] [address] Krysta Huston RN 03/13/2025 10:30 AM EDT Office Visit [address] [address] Name, MD Rafiq [address] [place] [address] documented as of this encounter Visit Diagnoses Not on filedocumented in this encounter Care Teams Fastener Technologist Relationship Specialty Start Date End Date Name, MD Rafiq [address] [place] [address] PCP - General Family Medicine 12/16/15 documented as of this encounter
--- OUTSIDE RECORDS SUMMARY | 2025-02-03 10:38 | XMS_ITS | Encounter Summary ---
Author Organization [facility] Address [address] [place] [address] Care Team Providers Care Credit Control Administrator Name Role Phone Name, Rafiq JENKINS Primary Care Provider Unavailabl e Name, Rafiq JENKINS Primary Care Provider Unavailabl e Magdalena Coreas NP Unavailable [phone] Mk Rolon MD Unavailable [phone] Reason for Visit * Reason Onset Date Comments REFERRAL 05/14/2014 Encounter Details Date Type Department Care Team Description 05/14/2014 Telephone Urology [address] [place] [address] Alan Garcia MD REFERRAL Social History Tobacco [...] uti Priority: within 2-3 weeks Payor: Not third-republican related No appts within time frame, please advise. documented in this encounter Plan of Treatment Not on file documented as of this encounter Visit Diagnoses Not on filedocumented in this encounter Care Teams Credit Control Administrator Relationship Specialty Start Date End Date Name, MD Rafiq PCP - General 07/30/08 01/30/16 Name, MD Rafiq PCP - General Internal Medicine 01/31/16 Magdalena Coreas NP Cardiology 04/14/21 Mk Rolon MD [address] [place] [address] [place] [address] Specialist Cardiovascular Disease 04/14/21 documented as of this encounter
--- OUTSIDE RECORDS SUMMARY | 2025-02-03 10:38 | XMS_ITS | Encounter Summary ---
Author Organization [employer] Address [address] 7t [place] [address] Care Team Providers Care Hand Molder And Caster Name Role Phone Name, Rafiq JENKINS Primary Care Provider [phone] Reason for Visit * Reason Onset Date Comments FMLA 01/20/2025 I called the pat ient, regarding a FMLA application from [employer]. I informed him that it has been faxed 3 times, and it is not going through. He agreed to have it mailed to [place], and he will orange picker a copy at [facility], to keep for his records. Encounter Details Date Type Department Care Team ([facility] st Contact Info) Description 01/20/2025 Telephone [facility] MEDICINE [address] [place] [address] Name, MD Rafiq [address] [place] [address] FMLA (I called the patient, regarding a FMLA application from [employer]. I informed him that it has been faxed 3 times, and it is not going through. He agreed to have it mailed to [place], and he will orange picker a copy at [facility], to keep [...] your housing situation today? I have lucrecia acban 02/05/[address] you li [...] the patient, regarding a FMLA application from [employer]. I informed him that it has been faxed 3 times, and it is not going through. He agreed to have it mailed to [place], and he will orange picker a copy at [facility], to keep for his records. documented in this encounter Plan of Treatment Upcoming Encounters Date Type Department Care Team (Late st Contact Info) Description 02/11/2025 11:30 AM EDT Clinical Support [address] [address] Krysta Huston RN 03/13/2025 10:30 AM EDT Office Visit [facility] MEDICINE [address] [place] [address] Name, MD Rafiq [address] [place] [address] documented as of this encounter Visit Diagnoses Not on filedocumented in this encounter Additional Health Concerns Assessment Noted Time PHQ-9 Depression Total Score: 0 02/05/20 24 2:30 PM EDT documented as of this encounter Care Teams Hand Molder And Caster Relationship Specialty Start Date End Date Name, MD Rafiq [address] [place] [address] PCP - General Family Medicine 12/16/15 documented as of this encounter
--- OUTSIDE RECORDS SUMMARY | 2025-02-03 10:38 | XMS_ITS | Encounter Summary ---
Author Organization [employer] Address [address] [facility] 7t [place] [address] Care Team Providers Care Engine Room Helper Name Role Phone Name, Rafiq JENKINS Primary Care Provider [phone] Reason for Visit * Reason Comments Transition Of Care (Tcm) HDF- scheduled and SDOH screening positive and Tobacco screening positive Encounter Details Date Type Department Care Team ([facility] st Contact Info) Description 01/26/2025 Patient Outreach [facility] MEDICINE [address] [place], [place] [phone] Name, MD Rafiq [address] [place] [address] Transition Of Care (Tcm) (HDF- scheduled and [...] 01/26/25 0904 Hospital Discharges and Admission for [facility] Type of Visit Hospital Admission Date of Admission/Visit 01/22/25 Date of Discharge 01/25/25 Facility [facility] Diagnosis Aortic aneurysm of unspecified site, without [...] Wednesdays, and Walk-In Urgent Care Located in [facility] of [facility].Patient provided with after-hours line for [facility], , which offer night time triage serviceand option to transfer to jewelry salesperson provider if needed. CC scanned discharge summary [...] Description 02/11/2025 11:30 AM EDT Clinical Support [facility] MEDICINE [address] [place] [address] Krysta Huston RN 03/13/2025 10:30 AM EDT Office Visit [facility] MEDICINE [address] [place] [address] NameRafiq MD [address] [place] [address] documented as of this encounter Visit Diagnoses Not on filedocumented in this encounter Additional Health Concerns Assessment Noted Time PHQ-9 Depression Total Score: 0 02/05/20 24 2:30 PM EDT documented as of this encounter Care Teams Engine Room Helper Relationship Specialty Start Date End Date Rafiq Grace MD [address] [place] [address] PCP - General Family Medicine 12/16/15 documented as of this encounter
--- OUTSIDE RECORDS SUMMARY | 2025-02-03 10:38 | XMS_ITS | Clinical Summary ---
Author Organization [employer] Address [address] [place] [address] 7[address] [place] [address] Care Team Providers Care Resource Program Teacher Name Role Phone Name, Rafiq JENKINS Primary Care Provider [phone] Allergies Active Allergy Reactions Criticality Noted Date Comments Ibuprofen 07/21/2015 Bleeding from bladder Naproxen 01/17/2016 Medications clopidogrel (Plavix) 75 MG tablet Take 1 tablet by mouth Once daily. 07/14/20 22 Active Diclofenac Sodium 1 % gel APPLY 2 GRAMS TO AFFECTED AREA TWICE A DAY 08/28/20 22 Active ergocalciferol (Vitamin D-2) 1.25 MG (12229 UT) capsule Take 1 capsule by mouth [...] MG EC tabletIndicatio ns:Coronary artery disease involving makah coronary artery of makah heart without angina pectoris TAKE 1 TABLET [...] disease) 12/01/2016 Overview (02/06/2024): He follows at [facility]. Cardiac catheterization was in January 2021 when [...] 120 - 02/02/25 Chronic back pain 01/17/2016 Assessment & Plan (02/02/2025 1:58 PM EDT): - Prescribed oxyCODONE-acetaminophen (Percocet) 5-325 MG tablet 02/02/25 Anxiety 01/17/2016 Lumbar spondylosis 01/17/2016 Old myocardial infarction 01/17/2016 Severe obesity (BMI 35.0-39.9) with comorbidity 07/22/2009 Depression 05/20/2009 Asthma 09/07/2008 Overview (11/23/2022): Only on albuterol. Uses the medication twice per week at most Resolved Problems Problem Noted Date Diagnosed Date Resolved Date DM2 (diabetes mellitus, type 2) 05/02/2023 04/23/2024 Encounters Date Type Department Care Team Description 02/02/2025 9:30 AM EDT Office Visit [facility] [address] [place] [phone] Sayda Hernandez MD Hypertension, unspecified type (Primary Dx); Chest pain, unspecified type; Chronic low back pain, unspecified back pain laterality, unspecified whether sciatica present; Dietary counseling; Exercise counseling; Class 2 severe obesity due to excess calories with serious comorbidity and body mass index (BMI) of 37.0 to 37.9 in adult ([facility]) 02/02/2025 Travel 02/01/2025 Refill [facility] [address] [place] [address] [phone] Name, MD Rafiq Hypercholesterolemia 01/30/2025 Patient Outreach [facility] [address] [place] [address] [phone] Name, MD Rafiq Care Coordination 01/30/2025 Patient Outreach [facility] [address] [place] [phone] Rafiq Grace MD Care Coordination ([address] telephone call outreach) 01/29/2025 Telephone [facility] [address] [place] [address] Lesli Antoine MA chartprep 01/26/2025 Patient Outreach [facility] [address] [place] [address] Rafiq Grace MD Transition Of Care (Tcm) (HDF- scheduled and SDOH screening positive and Tobacco screening positive) 01/24/2025 Refill [facility] [address] [place] [address] Rafiq Grace MD Mild intermittent asthma, unspecified whether complicated 01/22/2025 Patient Outreach [facility] [address] [place] [address] Rafiq Grace MD Care Coordination ([address] telephone call outreach) 01/22/2025 Telephone [facility] [address] [place] [address] Rafiq Grace MD Care Management (C3- chart review) 01/20/[address] [address] Rafiq Grace MD FMLA (I called the patient, regarding a FMLA application from [employer] [place] [email or web address]. I informed him that it has been faxed 3 times, and it is not going through. He agreed to have it mailed to [place], and he will sisal picker a copy at [facility], to keep for his records. ) 01/05/2025 Refill [facility] [address] [place] [address] Rafiq Grace MD Chronic low back pain, unspecified back pain laterality, unspecified whether sciatica present 12/31/2024 Refill [facility] [address] [place] [address] Latosha Car MD Mild intermittent asthma, unspecified whether complicated 12/25/2024 Orders Only [facility] External Provider, [facility] 12/17/2024 11:30 AM EST Clinical Support [facility] [place] [address] Krysta Huston doctor of dental surgery pain syndrome (Primary Dx) 12/17/2024 Travel 12/17/2024 Telephone [facility] [place] [address] Krysta Huston RN Recommend ADVANCED DEVELOPER Tier 2 12/05/2024 Refill [facility] [place] [address] Rafiq Grace MD Mild intermittent asthma, unspecified whether complicated 12/05/2024 Refill [facility] [place] [facility] [place] [address] Rafiq Grace MD Chronic low back pain, unspecified back pain laterality, unspecified whether sciatica present 12/04/2024 Telephone [facility] [place] [address] Rafiq Grace MD No Show 11/18/2024 Telephone [facility] [place] [facility] [place] [address] Rafiq Grace MD CALLBACK REQUESTED 11/18/2024 Telephone [facility] [address] Rafiq Grace MD FMLA (I called the patient regarding an application for FMLA, from [place] [email or web address]. I reached his voicemail, and left a message asking him to return my call at ext [phone].) 11/05/2024 Refill [facility] [place] [address] Rafiq Grace MD Coronary artery disease involving makah coronary artery of makah heart without angina pectoris 11/05/2024 Refill [facility] [place] [address] Rafiq Grace MD Chronic low back pain, unspecified back pain laterality, unspecified whether sciatica present from Last 3 Months Immunizations Name Administration Dates Next Due HepB-CpG 05/15/2023,04/11/2023 Influenza injectable quadriv alent IIV4 with preservative 11/14/2019,08/28/2016 Influenza injectable quadriv alent preservative free 09/05/2023,08/18/2022,09/03/2017 Influenza, IIV3, injectable 09/10/2015,1 ,08/12/2013,08/20,11/02/2011,04/09/2010,09/07/2008 Influenza, seasonal, injecta ble, preservative free 08/11/2024 Novel gayienvvq-M1V2-17, preservative-free 01/26/2010 Pneumococcal Conjugate PCV 20 04/11/2023 [...] Description 02/11/2025 11:30 AM EDT Clinical Support [facility] [address] [place] [address] Krysta Huston RN 03/13/2025 10:30 AM EDT Office Visit [facility] [address] [place] [address] Name, MD Rafiq [address] [place] [address] 1967[address] Health Maintenance Due Date Last Done Comments CT Colonography 1967 Dental Prophylaxis 1967 FIT DNA/Cologuard 1967 FIT 1967 FOBT 1965 HIV Screening 1965 Sigmoidoscopy 1965 Dental Oral Exam 06/15/2023 12/15/2022 Dental X-Ray: Bitewings 12/16/2023 12/15/2022 COVID-19 Vaccine ( season) 2024 12/19/2021, 05/02/2021, 04/04/2021 Diabetes: Hemoglobin A1C 12/03/2024 024, 05/02/2023, 06/28/2022, Additional history exists Depression Monitoring (PHQ-9) 08/05/2025 02/02/2025, 02/02/2025 Alcohol/Substance Use Screening 10/15/2025 10/15/2024 Dental X-Ray: Full Mouth 12/16/2025 12/15/2022 Colonoscopy 12/24/2025 12/24/2020 Colorectal Cancer Screening 12/24/2025 SDOH Screening 01/30/2026 01/30/2025 Depression Screening 02/02/2026 02/02/2025, 02/03/20 25 Tobacco Screening 02/02/2026 02/02/2025 Lipid Panel 10/17/2029 [...] Procedure Name Priority Date/Time Associated Diagnosis Comments COMPREHENSIVE METABOLIC PANEL Routine 02/02/2025 10:18 AM EDT Hypertension, unspecified type CBC WITH AUTO DIFFERENTIAL Routine 02/02/2025 10:18 AM EDT Hypertension, unspecified type MR KNEE WO CONTRAST LEFT Routine 12/25/2024 7:05 PM EST POCT FRANCI-14 URINE DRUG SCREEN Routine 12/17/2024 11:37 AM EST Chronic pain syndrome FL ESOPHAGUS BARIUM SWALLOW WITH AIR Routine 11/27/2024 8:00 AM EST LIPID PANEL, STANDARD Routine 10/17/2024 10:27 AM EST Coronary artery disease involving makah coronary artery of makah heart with unstable angina pectoris (CMS/HCC) HEPATITIS [...] Recently Relevant to Health Maintenance Results * (ABNORMAL) CBC auto differential (02/02/2025 10:18 AM EDT) White Blood Count 11.3(H) 4.8 - 10.8 X10*3/uL [facility] Red Blood Count 4.43(L) 4.60 - 5.80 X10*6/uL [facility] Hemoglobin 13.0(L) 14.0 - 18.0 g/dl [facility] Hematocrit 40.1(L) 42.0 - 52.0 % [facility] Mean Corpuscular Volume 90.5 80.0 - 98.0 fL [facility] Mean Corpuscular Hemoglobin 29.3 27.0 - 33.0 pg [facility] Mean Corpuscular HGB Conc 32.4 31.0 - 36.0 g/dl [facility] Red Cell Distribution Width 13.8 11.0 - 16.0 % [facility] Platelet Count 273 160 - 400 X10*3/uL [facility] Mean Platelet Volume 11.1 9.4 - 12.4 fL [facility] Neutrophils Percent Auto 63.5 45 - 73 % [facility] Imm Gran Pct Auto 0.4 0.0 - 0.4 % [facility] Lymphocytes Percent Auto 20.7 20 - 40 % [facility] Monocytes Percent Auto 12.2(H) 2 - 11 % [facility] Eosinophils Percent Auto 2.8 0 - 4 % [facility] Basophils Percent Auto 0.4 0 - 2 % [facility] NRBC Pct Auto 0.0 0.0 - 0.2 /100WBC [facility] Neutrophils Absolute Auto 7.1 2.0 - 8.3 x10*3/uL [facility] Imm Gran Abs Auto 0.05(H) 0.00 - 0.03 X10*3/uL [facility] Lymphocytes Absolute Auto 2.3 1.2 - 4.9 X10*3/uL [facility] Monocytes Absolute Auto 1.4(H) 0.1 - 1.2 X10*3/uL [facility] Eosinophils Absolute Auto 0.3 0.0 - 0.4 X10*3/uL [facility] Basophils Absolute Auto 0.1 0.0 - 0.2 X10*3/uL [facility] NRBC Abs Auto 0.000 0.0 - 0.012 X10*3/uL [facility] Blood Venous blood specimen / Unknown 02/02/2025 10:18 AM EDT 02/02/2025 11:19 AM EDT us Sayda Hernandez MD LAB BLOOD ORDERABLES Final Resul t [facility] [address] [place] [address] [phone] * (ABNORMAL) Comprehensive Metabolic Panel (02/02/2025 10:18 AM EDT) Sodium 142 135 - 145 mmol/L [facility] Potassium 4.0 3.3 - 5.1 mmol/L [facility] Chloride 114(H) 96 - 108 mmol/L [facility] Carbon Dioxide 24 22 - 29 mmol/L [facility] Anion Gap 8(L) 12 - 20 [facility] Urea Nitrogen (BUN) 14 9 - 16 mg/dL [facility] Creatinine, Serum 0.80 0.5 - 1.4 mg/dL [facility] Estimated Glomerular Filt Rate >60 [facility] Comment:Chronic Kidney Disea se: Estimated GFR < 60 mL/min/1.70e3Elfzes Kidney Disease: Estimated GFR < 15 mL/min/1.73m2 Glucose 87 60 - 115 mg/dL [facility] Calcium 8.8 8.4 - 10.2 mg/dL [facility] Bilirubin, Total 0.8 0.0 - 1.0 mg/dL [facility] Aspartate Amino Transferase 28 5 - 37 U/L [facility] Alanine Aminotransferase 53(H) 0 - 40 U/L [facility] Total Protein 7.0 6.5 - 8.0 g/dL [facility] Albumin Level 3.8 3.5 - 5.0 g/dL [facility] Alkaline Phosphatase 80 39 - 117 U/L [facility] Blood Venous blood specimen / Unknown 02/02/2025 10:18 AM EDT 02/02/2025 11:19 AM EDT us Sayda Hernandez MD LAB BLOOD ORDERABLES Final Resul t [facility] [address] [place] [address] [phone] * MR Knee w/o Contrast Left (12/25/2024 7:05 PM EST) Anatomical Region Laterality Modality Magnetic Resonan ce 12/25/2024 7:05 PM EST Narrative 12/26/2024 8:17 AM EST ? [facility] ?[address] ?[place] [address] ? Magnetic Resonance Report ? Signed ? Patient: Deidre Colon,Trenton ?MR#: M ?? [id number] ? : 1965 ?Acct:[id number] ? Age/Sex: 59 / M ?ADM Date: 12/25/24 ? Loc: HO.MRI ? Attending Dr: Kristan PETTY ? Ordering Physician: Kristan Oconnell ?? Date of Service: 12/25/24 ?? Procedure(s): MR knee LT wo con ?? Accession Number(s): [id number] ? cc: Kristan Oconnell; Name,Rafiq JENKINS ? [...] MD in OV> ?12/26/24 0814 ? DD/ 190 ? TD/TT: 12/25/241924 ? New Car Get Ready Mechanic: ? Procedure Note Navid, Image - 12/26/2024 [place] [address] Magnetic Resonance Report Signed Patient: Erick Bejarano#: M [id number] : 1965Acct:[id number] Age/Sex: 59 / MADM Date: 12/25/24 Loc: HO.MRI Attending Dr: Kristan PETTY Ordering Physician: Kristan Oconnell Date of Service: 12/25/24 Procedure(s): MR knee LT wo con Accession Number(s): [id number] cc: Kristan Oconnell; Name,Rafiq JENKINS EXAMINATION: MRI [...] OV> 12/26/24 0814 DD/ 04 TD/TT: 12/25/241924 New Car Get Ready Mechanic: [facility] External Provider IM MRI PROCEDURES Final Result * POCT FRANCI-14 Urine Drug Screen (12/17/2024 11:37 AM EST) THC Positive Oxycodone Screen, Urine Positive Urine Urine specimen obtained by clean catch procedure / Unknown 12/17/2024 11:37 AM EST Narrative Krysta Huston RN - 12/17/2024 11:37 AM EST UTOX cup Lot#[id number] Exp. 08/20/26 Internal Pass Control us Rafiq Name POINT OF CARE TEST ENTER/EDIT OR DERABLES Final Result * FL Esophagus Barium Swallow w/Air (11/27/2024 8:00 AM EST) Anatomical Region Laterality Modality Head, Neck Radiographic Nova ging 11/27/2024 8:00 AM EST Narrative 11/27/2024 4:09 PM EST ? [facility] ?[address] ?[place] [address] ? Fluoroscopy Report ? Signed ? Patient: Deidre Colon,Trenton ?MR#: M ?? [id number] ? : 1965 ?Acct:[id number] ? Age/Sex: 59 / M ?ADM Date: 11/27/24 ? Loc: HO.XRAY ? Attending Dr: Rafiq Grace MD ? Ordering Physician: Rafiq Grace MD ?? Date of Service: 11/27/24 ?? Procedure(s): FL barium swallow with air ?? Accession Number(s): [id number] ? cc: Rafiq Grace MD ? EXAMINATION: [...] 1607 ?<Electronically signed by Omar S Jessika JENKINS in OV> ? 11/27/24 1609 ? DD/ 0800 ? TD/TT: 11/27/24 0825 ? New Car Get Ready Mechanic: ? Procedure Note Navid, Image - 11/27/[address] [place] [address] Fluoroscopy Report Signed Patient: Erick Bejarano#: M [id number] : 1965Acct:[id number] Age/Sex: 59 / MADM Date: 11/27/24 Loc: HO.XRLIZA Attending Dr: Rafiq Grace MD Ordering Physician: Rafiq Grace MD Date of Service: 11/27/24 Procedure(s): FL barium swallow with air Accession Number(s): [id number] cc: Rafiq Grace MD EXAMINATION: XR FLUOROSCOPY [...] 11/27/24 1609 DD/ 0800 TD/TT: 11/27/24 0825 New Car Get Ready Mechanic: Rafiq Grace MD IM FLUOROSCOPY PROCEDURES Edite d Result - Final * (ABNORMAL) Lipid Panel, Standard (10/17/2024 10:27 AM EST) Triglycerides 164(H) <150 mg/dL [facility] Comment:Desirable Triglyceri de: less than 150 mg/dLBorderline High Triglyceride 150-199 mg/dLHigh Triglyceride: 200-499 mg/dLVery High Triglyceride: greater than or equal to 5OO mg/dL Cholesterol 214(H) <200 mg/dL [facility] Comment:Desirable Cholestero l: less than 200 mg/dLBorderline High Cholesterol: 200-239 mg/dLHigh Cholesterol: greater than 239 mg/dL LDL Cholesterol Calculated 151(H) <100 mg/dL [facility] Comment:Desirable LDL: less than 100 mg/dLNear Optimal/Above Optimal LDL: 110- 129 mg/dLBorderline High LDL: 130-159 mg/dLHigh LDL: 160-189 mg/dLVery High LDL: greater than or equal to 190 mg/dL HDL Cholesterol 31(L) >40 mg/dL [facility] Comment:Desirable HDL: great er than 40 mg/dL Note: This HDL assay may give artificially low results in patients with liver disease. Blood Venous blood specimen / Unknown 10/17/2024 10:27 AM EST 10/17/2024 11:05 AM EST Rafiq Grace MD LAB BLOOD ORDERABLES Final Resul t Performing Organization Address City/[facility]/ZIP Co de Phone Number [facility] [address] [place] [phone] * Hepatitis C Ab (02/06/2024 12:22 PM EDT) Pathologist [facility] Hepatitis C Antibody Nonreactive Nonreactive [facility] Comment:Antibodies to HCV no t detected; does not exclude early acuteHCV infection. Blood Venous blood specimen / Unknown 02/06/2024 12:22 PM EDT 02/06/2024 1:11 PM EDT Rafiq Grace MD LAB BLOOD ORDERABLES Final Resul t Performing Organization Address [facility] Co de Phone Number [facility] [address] [place] [phone] * POCT HGB A1C (12/03/2023 4:16 PM EST) [facility] Hemoglobin A1C 5.6 4.0 - 6.0 % Other 12/03/2023 4:16 PM EST Rafiq Grace MD POINT OF CARE TEST ENTER/EDIT OR DERABLES Final Result * (ABNORMAL) Lung Cancer Screning (07/03/2023) Pathologist [facility] Lung CT LUNGRADS 0(A) LUNGRADS 1, LUNGRADS 2 Anatomical Region Laterality Modality Other Lisa Middleton HEALTH MAINTENANCE Final Resul t * Colonoscopy (12/24/2020 12:59 PM EST) [facility] Colonoscopy Normal Normal Narrative Danielle Orellana - 12/24/2020 12:59 PM EST Recommended 5 year follow up Historical Lora JENKINS HEALTH MAINTENANCE Final Result from Last 3 Months or Most Recently Relevant to Health Maintenance Insurance [facility] C3 DENTAL-[facility] MEDICAID STAND ADULT DENTAL - HSN FULL (MEDICAID) DENTAL - [employer] DENTAL [address] [place] [phone] [place] [address] [place] [phone] Care Teams Resource Program Teacher Relationship Specialty Start Date End Date Name, MD Rafiq [address] [place] [address] PCP - General Family Medicine 12/16/15
--- OUTSIDE RECORDS SUMMARY | 2025-02-03 10:38 | XMS_ITS | Encounter Summary ---
Author Organization [employer] [facility] Address [address] [place] [address] 7t [place] [address] Care Team Providers Care Court Monitor Name Role Phone Name, Rafiq JENKINS Primary Care Provider [phone] Reason for Visit * Reason Comments Med Refill Encounter Details Date Type Department Care Team (Late Contact Info) Description 06/07/2023 Refill [facility] [address] [place], [place] [phone] Name, MD Rafiq [address] [place] [address] Tobacco use disorder, continuous Social History Tobacco [...] Description 02/11/2025 11:30 AM EDT Clinical Support [address] [address] Krysta Huston, RN 03/13/2025 10:30 AM EDT Office Visit [address] [address] Name, MD Rafiq [address] [place] [address] documented as of this encounter Visit Diagnoses Diagnosis Tobacco use disorder, continuous Tobacco use disorder documented in this encounter Care Teams Court Monitor Relationship Specialty Start Date End Date Name, MD Rafiq [address] [place] [address] PCP - General Family Medicine 12/16/15 documented as of this encounter
--- OUTSIDE RECORDS SUMMARY | 2025-02-03 10:38 | XMS_ITS | Encounter Summary ---
Author Organization [facility] Address [address] [place] [address] Care Team Providers Care Transition Of Care Specialist Name Role Phone Name, Rafiq JENKINS Primary Care Provider Magdalena Esteban NP Unavailable Mk Rolon MD Unavailable [phone] Reason for Visit * Reason Onset Date Comments other 03/15/2021 Cardiac Rehab Encounter Details Date Type Department Care Team Description 03/15/2021 Telephone [facility]io [facility] [address] [place] [address] Magdalena Coreas NP [address] [place] [address] Dr Mendes [address] [place] [phone] other (Cardiac Rehab ) Social History Tobacco [...] EDT Pt will like to go to [place] [facility] , I will send over all paperwork to the cardiac rehab office in [place] . documented in this encounter Plan of Treatment Not on file documented as of this encounter Visit Diagnoses Not on filedocumented in this encounter Care Teams Transition Of Care Specialist Relationship Specialty Start Date End Date Name, MD Rafiq PCP - General Internal Medicine 01/31/16 Magdalena Coreas NP Cardiology 04/14/21 Mk Rolon MD [address] [place] [address] [place] [address] Specialist Cardiovascular Disease 04/14/21 documented as of this encounter
--- OUTSIDE RECORDS SUMMARY | 2025-02-03 10:38 | XMS_ITS | Encounter Summary ---
Author Organization [employer] [facility] Address [address] [place] [address] [address] [place] [address] Care Team Providers Care Utility Gelatin Maker Name Role Phone Name, Rafiq JENKINS Primary Care Provider [phone] Reason for Visit * Reason Comments Med Refill Encounter Details Date Type Department Care Team (Late Contact Info) Description 06/03/2023 Refill [facility] [address] [place], [place] [phone] Sabine Boyd MD [address] [place], [place] [phone] Tobacco use disorder, continuous Social History Tobacco [...] Description 02/11/2025 11:30 AM EDT Clinical Support [address] [address] Krysta Huston, LUCAS 03/13/2025 10:30 AM EDT Office Visit [address] [address] Name, MD Rafiq [address] [place] [phone] documented as of this encounter Visit Diagnoses Diagnosis Tobacco use disorder, continuous Tobacco use disorder documented in this encounter Care Teams Utility Gelatin Maker Relationship Specialty Start Date End Date Name, MD Rafiq [address] [place] [phone] PCP - General Family Medicine 12/16/15 documented as of this encounter
--- OUTSIDE RECORDS SUMMARY | 2025-02-03 10:38 | XMS_ITS | Encounter Summary ---
Author Organization [facility] Address [address] [place] [address] Care Team Providers Care Home Health Registered Nurse Name Role Phone Name, Rafiq JENKINS Primary Care Provider Magdalena Esteban ENRICHMENT DIRECTOR Unavailable [phone] Mk Rolon MD Unavailable [phone] Encounter Details Date Type Department Care Team Description 11/19/2016 Hospital Medical Records [address] [place] [address] Alberto Loera MD [address] [place] [address] Social History Tobacco Use Types Packs/Day Years [...] on filedocumented in this encounter Care Teams Home Health Registered Nurse Relationship Specialty Start Date End Date Name, MD Rafiq PCP - General Internal Medicine 01/31/16 Magdalena Coreas NP Cardiology 04/14/21 Mk Rolon MD [address] [place] [address] [address] [place] [address] Specialist Cardiovascular Disease 04/14/21 documented as of this encounter
--- OUTSIDE RECORDS SUMMARY | 2025-02-03 10:38 | XMS_ITS | Encounter Summary ---
Author Organization [facility] Address [address] [place] [address] [address] [place] [address] Care Team Providers Care Interior Assemblies Installer Name Role Phone Name, Rafiq JENKINS Primary Care Provider [phone] Reason for Visit * Reason Comments Med Refill Encounter Details Date Type Department Care Team (Late st Contact Info) Description 08/03/2023 Refill [facility] [address] [place] [address] [phone] Name, MD Rafiq [address] [place] [phone] Social History Tobacco Use Types Packs/Day Years [...] Description 02/11/2025 11:30 AM EDT Clinical Support [address] [phone] Krysta Huston RN 03/13/2025 10:30 AM EDT Office Visit [address] [address] Name, MD Rafiq [address] [place] [address] documented as of this encounter Visit Diagnoses Not on filedocumented in this encounter Care Teams Interior Assemblies Installer Relationship Specialty Start Date End Date Name, MD Rafiq [address] [place] [address] PCP - General Family Medicine 12/16/15 documented as of this encounter
--- OUTSIDE RECORDS SUMMARY | 2025-02-03 10:38 | XMS_ITS | Encounter Summary ---
Author Organization [employer] Address [address] [facility] 7t [place] [address] Care Team Providers Care Knitter Hand Name Role Phone Name, Rafiq JENKINS Primary Care Provider [phone] Encounter Details Date Type Department Care Team [...] Description 02/11/2025 11:30 AM EDT Clinical Support [facility] MEDICINE [address] [place] [address] Krysta Huston RN 03/13/2025 10:30 AM EDT Office Visit [address] [address] Name, MD Rafiq [address] [place] [address] documented as of this encounter Visit Diagnoses Not on filedocumented in this encounter Additional Health Concerns Assessment Noted Time PHQ-9 Depression Total Score: 10 025 11:59 AM EDT documented as of this encounter Care Teams Knitter Hand Relationship Specialty Start Date End Date Rafiq Grace MD [address] [place] [address] PCP - General Family Medicine 12/16/15 documented as of this encounter
--- OUTSIDE RECORDS SUMMARY | 2025-02-03 10:38 | XMS_ITS | Clinical Summary ---
Author Organization [facility] Address [address] [place] [address] Care Team Providers Care Nutrition Worker Name Role Phone Name, Rafiq JENKINS Primary Care Provider Magdalena Esteban [employer] Unavailable [phone] Mk Rolon MD Unavailable [phone] Allergies Active Allergy Reactions Severity Noted Date [...] RISK PATIENTS (#2) 2032 03/23/2014 Care Teams Nutrition Worker Relationship Specialty Start Date End Date Name, MD Rafiq PCP - General Internal Medicine 01/31/16 Magdalena Coreas NP Cardiology 04/14/21 Mk Rolon MD [address] [place] [address] [address] [place] [address] Specialist Cardiovascular Disease 04/14/21
--- OUTSIDE RECORDS SUMMARY | 2025-02-03 10:38 | XMS_ITS | Encounter Summary ---
Author Organization [employer] Address [address] [facility] 7t [place] [address] Care Team Providers Care Track Production Engineer Name Role Phone Name, Rafiq JENKINS Primary Care Provider [phone] Encounter Details Date Type Department Care Team ([facility] st Contact Info) Description 02/02/2025 9:30 AM EDT Office Visit [facility] MEDICINE [address] [place], [place] [phone] Sayda Hernandez MD [address] [place], [place] [phone] Hypertension, unspecified type (Primary Dx); Chest pain, unspecified type; Chronic low back pain, unspecified back pain laterality, unspecified whether sciatica present; Dietary counseling; Exercise counseling; Class 2 severe obesity due to excess calories with serious comorbidity and body mass index (BMI) of 37.0 to 37.9 in adult (CMS/[facility]) Social History Tobacco Use Types Packs/Day Years [...] the past 12 months, has t he [employer] gas, oil or water company threatened to [...] Note - Leonila Cespedes MA - 02/02/2025 1:58 PM EDTAssociated Problem(s): Chronic back pain - Prescribed oxyCODONE-acetaminophen (Percocet) 5-325 MG tablet 02/02/25 * Assessment & Plan Note - Leonila [...] Clinical Support [facility] MEDICINE [address] [place] [address] Krysta Huston RN 03/13/2025 10:30 AM EDT Office Visit [facility] MEDICINE [address] [place] [address] Name, MD Rafiq [address] [place] [address] documented as of this encounter Procedures Procedure Name Priority Date/Time Associated Diagnosis Comments CBC WITH AUTO DIFFERENTIAL Routine 02/02/2025 10:18 AM EDT Hypertension, unspecified type COMPREHENSIVE METABOLIC PANEL Routine 02/02/2025 10:18 AM EDT Hypertension, unspecified type documented in this encounter Results * (ABNORMAL) Comprehensive Metabolic Panel (02/02/2025 10:18 AM EDT) Sodium 142 135 - 145 mmol/L [facility] Potassium 4.0 3.3 - 5.1 mmol/L [facility] Chloride 114(H) 96 - 108 mmol/L [facility] Carbon Dioxide 24 22 - 29 mmol/L [facility] Anion Gap 8(L) 12 - 20 [facility] Urea Nitrogen (BUN) 14 9 - 16 mg/dL [facility] Creatinine, Serum 0.80 0.5 - 1.4 mg/dL [facility] Estimated Glomerular Filt Rate >60 [facility] Comment:Chronic Kidney Disea se: Estimated GFR < 60 mL/min/[id number] Kidney Disease: Estimated GFR < 15 mL/min/1.73m2 Glucose 87 60 - 115 mg/dL [facility] Calcium 8.8 8.4 - 10.2 mg/dL [facility] Bilirubin, Total 0.8 0.0 - 1.0 mg/dL [facility] Aspartate Amino Transferase 28 5 - 37 U/L [facility] Alanine Aminotransferase 53(H) 0 - 40 U/L [facility] Total Protein 7.0 6.5 - 8.0 g/dL [facility] Albumin Level 3.8 3.5 - 5.0 g/dL [facility] Alkaline Phosphatase 80 39 - 117 U/L [facility] Blood Venous blood specimen / Unknown 02/02/2025 10:18 AM EDT 02/02/2025 11:19 AM EDT us Sayda Hernandez MD LAB BLOOD ORDERABLES Final Resul t [facility] [address] [place] [phone] * (ABNORMAL) CBC auto differential (02/02/2025 10:18 AM EDT) White Blood Count 11.3(H) 4.8 - 10.8 X10*3/uL [facility] Red Blood Count 4.43(L) 4.60 - 5.80 X10*6/uL [facility] Hemoglobin 13.0(L) 14.0 - 18.0 g/dl [facility] Hematocrit 40.1(L) 42.0 - 52.0 % [facility] Mean Corpuscular Volume 90.5 80.0 - 98.0 fL [facility] Mean Corpuscular Hemoglobin 29.3 27.0 - 33.0 pg [facility] Mean Corpuscular HGB Conc 32.4 31.0 - 36.0 g/dl [facility] Red Cell Distribution Width 13.8 11.0 - 16.0 % [facility] Platelet Count 273 160 - 400 X10*3/uL [facility] Mean Platelet Volume 11.1 9.4 - 12.4 fL [facility] Neutrophils Percent Auto 63.5 45 - 73 % [facility] Imm Gran Pct Auto 0.4 0.0 - 0.4 % [facility] Lymphocytes Percent Auto 20.7 20 - 40 % [facility] Monocytes Percent Auto 12.2(H) 2 - 11 % [facility] Eosinophils Percent Auto 2.8 0 - 4 % [facility] Basophils Percent Auto 0.4 0 - 2 % [facility] NRBC Pct Auto 0.0 0.0 - 0.2 /100WBC [facility] Neutrophils Absolute Auto 7.1 2.0 - 8.3 x10*3/uL [facility] Imm Gran Abs Auto 0.05(H) 0.00 - 0.03 X10*3/uL [facility] Lymphocytes Absolute Auto 2.3 1.2 - 4.9 X10*3/uL [facility] Monocytes Absolute Auto 1.4(H) 0.1 - 1.2 X10*3/uL [facility] Eosinophils Absolute Auto 0.3 0.0 - 0.4 X10*3/uL [facility] Basophils Absolute Auto 0.1 0.0 - 0.2 X10*3/uL [facility] NRBC Abs Auto 0.000 0.0 - 0.012 X10*3/uL [facility] Blood Venous blood specimen / Unknown 02/02/2025 10:18 AM EDT 02/02/2025 11:19 AM EDT us Sayda Hernandez MD LAB BLOOD ORDERABLES Final Resul t [facility] [address] [place] [address] [phone] documented in this encounter Visit Diagnoses Diagnosis Hypertension, unspecified type- Primary Chest pain, unspecified type Chronic low back pain, unspecified back pain laterality, unspecified whether sciatica present Dietary counseling Dietary surveillance and counseling Exercise counseling Class 2 severe obesity due to excess calories with serious comorbidity and body mass index (BMI) of 37.0 to 37.9 in adult (CMS/HCC) documented in this encounter Additional Health Concerns Assessment Noted Time PHQ-9 Depression Total Score: 10 025 11:59 AM EDT documented as of this encounter Care Teams Track Production Engineer Relationship Specialty Start Date End Date Name, MD Rafiq [address] [place] [address] PCP - General Family Medicine 12/16/15 documented as of this encounter
--- OUTSIDE RECORDS SUMMARY | 2025-02-03 10:38 | XMS_ITS | Encounter Summary ---
Author Organization [employer] [facility] Address [address] [place] [address] 7t [place] [address] Care Team Providers Care Chief Nursing Officer Name Role Phone Name, Rafiq JENKINS Primary Care Provider [phone] Reason for Visit * Reason Comments Med Refill Encounter Details Date Type Department Care Team (Late Contact Info) Description 03/13/[address] [facility] MEDICINE [address] [place], [place] [phone] Sabine Boyd MD [address] [place], [place] [phone] Social History Tobacco Use Types Packs/Day Years [...] Description 02/11/2025 11:30 AM EDT Clinical Support [address] [address] Krysta Huston, LUCAS 03/13/2025 10:30 AM EDT Office Visit [address] [address] Name, MD Rafiq [address] [place] [address] documented as of this encounter Visit Diagnoses Not on filedocumented in this encounter Care Teams Chief Nursing Officer Relationship Specialty Start Date End Date Name, MD Rafiq [address] [place] [address] PCP - General Family Medicine 12/16/15 documented as of this encounter
--- OUTSIDE RECORDS SUMMARY | 2025-02-03 10:38 | XMS_ITS | Encounter Summary ---
Author Organization [facility] [facility] Address [address] [facility] 7t [place] [address] Care Team Providers Care Police Lieutenant Name Role Phone Name, Rafiq JENKINS Primary Care Provider [phone] Encounter Details Date Type Department Care Team (Late Contact Info) Description 12/29/2022 Abstract [facility] ADULT DENTAL [address] [place] [address] Dario Lynch DDS [address] [place], [place] [phone] Social History Tobacco Use Types Packs/Day Years [...] Description 02/11/2025 11:30 AM EDT Clinical Support [facility] MEDICINE [address] [place] [address] Krysta Huston RN 03/13/2025 10:30 AM EDT Office Visit [facility] MEDICINE [address] [place] [address] Name, MD Rafiq [address] [place] [address] documented as of this encounter Visit Diagnoses Not on filedocumented in this encounter Care Teams Police Lieutenant Relationship Specialty Start Date End Date Name, MD Rafiq [address] [place] [address] PCP - General Family Medicine 12/16/15 documented as of this encounter
== END 2025-02-03 10:00 | disposition home or self-care (01) ==
LOC: HO.HPSW 09:27
PROVIDERS: PCP Internal Medicine Geriatric Medicine; Visit Provider Nurse Practitioner Family
DX: J44.9 Chronic obstructive pulmonary disease, unspecified (principal); R05.9 Cough, unspecified
CPT/HCPCS: 99214

== ENCOUNTER 2025-02-03 09:27 | Outpatient (REF) | payer MEDICAID, SELFPAY ==
--- NOTE | ~2025-02-03 | XR_ITS ---
EXAMINATION: XR CHEST 2 VIEWS HISTORY: R05.9 - Cough, unspecified COMPARISON: Comparison is made with the prior examination dated 10/17/2024. FINDINGS: PA and lateral views of the chest are submitted. The lungs are expanded and clear. There is no pleural effusion, pneumothorax, or pulmonary vascular congestion. The heart is normal in size. The bones are intact. XR/XR chest 2V IMPRESSION: No acute cardiopulmonary abnormality. Electronically signed by: Nicolas Gavin MD 02/03/2025 10:57 AM EDT
--- OUTSIDE RECORDS SUMMARY | 2025-02-03 12:45 | XMS_ITS | Encounter Summary ---
Author Organization [employer] [facility] Address [address] [place] [address] Care Team Providers Care Junior Accountant Name Role Phone Name, Rafiq JENKINS Primary Care Provider Unavailoj e Rafiq Grace MD Primary Care Provider Unavailabl e Magdalena Coreas OFFICE CLINICIAN Unavailable [phone] Mk Rolon MD Unavailable [phone] Encounter Details Date Type Department Care Team Description 03/23/2014 Business Doc Medical Records [address] [place] [address] Abstract, Provider Social History Tobacco Use Types [...] on filedocumented in this encounter Care Teams Junior Accountant Relationship Specialty Start Date End Date Rafiq Grace MD PCP - General 07/30/08 01/30/16 Rafiq Grace MD PCP - General Internal Medicine 01/31/16 Magdalena Coreas NP Cardiology 04/14/21 Mk Rolon MD [address] [place] [address] [address] [place] [address] Specialist Cardiovascular Disease 04/14/21 documented as of this encounter
--- OUTSIDE RECORDS SUMMARY | 2025-02-03 12:45 | XMS_ITS | Encounter Summary ---
Author Organization [email or web address] [facility] Address [address] [place] [address] 7t [place] [address] Care Team Providers Care Chart Clerk Name Role Phone Name, Rafiq JENKINS Primary Care Provider [phone] Reason for Visit * Reason Comments Med Refill Encounter Details Date Type Department Care Team (Late Contact Info) Description 03/13/2023 Refill [facility] MEDICINE [address] [place], [place] [phone] Sabine Boyd MD [address] [place], [place] [phone] Social History Tobacco Use Types Packs/Day Years [...] Description 02/11/2025 11:30 AM EDT Clinical Support [address] [address] Krysta Huston, LUCAS 03/13/2025 10:30 AM EDT Office Visit [address] [address] Name, MD Rafiq [address] [place] [address] documented as of this encounter Visit Diagnoses Not on filedocumented in this encounter Care Teams Chart Clerk Relationship Specialty Start Date End Date Name, MD Rafiq [address] [place] [address] PCP - General Family Medicine 12/16/15 documented as of this encounter
--- OUTSIDE RECORDS SUMMARY | 2025-02-03 12:45 | XMS_ITS | Encounter Summary ---
Author Organization [employer] Address [address] [facility] 7t [place] [address] Care Team Providers Care Folded Cloth Taper Name Role Phone Name, Rafiq JENKINS Primary Care Provider Reason for Visit * Reason Comments Care Coordination [facility] call outreach Encounter Details Date Type Department Care Team (Latest Contact Info) Description 01/30/2025 Patient Outreach [facility] MEDICINE [address] [place], [place] [phone] Name, MD Rafiq [address] [place] [address] Care Coordination (C3 DESTIN Miranda telephone call [...] outbound call to patient introducing herself from [facility] CM Department, in regards to offering services. Patient's name and was confirmed. Patient agrees toparticipate in program. Appt. for initial assessment scheduled for 02/05/25 @ 1:00PM. CHW reinforceddirect contact information or for any additional questions or concerns and extended clinic hours on Mondays and Wednesdays, and Walk-In Urgent Care Located in [facility] of [facility]. Patient provided with after-hours line for [facility], , which offer night time triage service and option to transfer to production team leader provider if needed. Patient verbalizes understanding, and able to repeat back to entry writer. documented in this encounter Plan of Treatment Upcoming Encounters Date Type Department Care Team ([facility] st Contact Info) Description 02/11/2025 11:30 AM EDT Clinical Support [facility] MEDICINE [address] [place] [address] Krysta Huston, RN 03/13/2025 10:30 AM EDT Office Visit [facility] MEDICINE [address] [place] [address] Name, MD Rafiq [address] [place] [address] documented as of this encounter Visit Diagnoses Not on filedocumented in this encounter Additional Health Concerns Assessment Noted Time PHQ-9 Depression Total Score: 0 02/05/20 24 2:30 PM EDT documented as of this encounter Care Teams Folded Cloth Taper Relationship Specialty Start Date End Date Name, MD Rafiq [address] [place] [address] PCP - General Family Medicine 12/16/15 documented as of this encounter
--- OUTSIDE RECORDS SUMMARY | 2025-02-03 12:45 | XMS_ITS | Encounter Summary ---
Author Organization [facility] Address [address] [place] [address] Care Team Providers Care Cattle Tester Name Role Phone NameRafiq MD Primary Care Provider Unavailoj e Rafiq Grace MD Primary Care Provider Unavailabl e Magdalena Coreas CANDY VENDOR Unavailable [phone] Mk Rolon MD Unavailable [phone] Encounter Details Date Type Department Care Team Description 01/12/2012 [place] [facility] [address] [address] NameRafiq MD Social History Tobacco Use Types [...] on filedocumented in this encounter Care Teams Cattle Tester Relationship Specialty Start Date End Date Rafiq Grace MD PCP - General 07/30/08 01/30/16 Rafiq Grace MD PCP - General Internal Medicine 01/31/16 Magdalena Coreas NP Cardiology 04/14/21 Mk Rolon MD [address] [place] [address] [address] [place] [address] Specialist Cardiovascular Disease 04/14/21 documented as of this encounter
--- OUTSIDE RECORDS SUMMARY | 2025-02-03 12:45 | XMS_ITS | Encounter Summary ---
Author Organization [facility] Address [address] [place] [address] Care Team Providers Care Conche Operator Name Role Phone Name, Rafiq JENKINS Primary Care Provider Unavailoj e Rafiq Grace MD Primary Care Provider Unavailabl e Magdalena Coreas LAPIDARY APPRENTICE Unavailable [phone] Mk Rolon MD Unavailable [phone] Encounter Details Date Type Department Care Team Description 02/27/2012 Hospital Medical Records [address] [place] [address] Keny Rodriguez MD Social History Tobacco Use [...] on filedocumented in this encounter Care Teams Conche Operator Relationship Specialty Start Date End Date Rafiq Grace MD PCP - General 07/30/08 01/30/16 Rafiq Grace MD PCP - General Internal Medicine 01/31/16 Magdalena Coreas NP Cardiology 04/14/21 Mk Rolon MD [address] [place] [address] [address] [place] [address] Specialist Cardiovascular Disease 04/14/21 documented as of this encounter
--- OUTSIDE RECORDS SUMMARY | 2025-02-03 12:45 | XMS_ITS | Encounter Summary ---
Author Organization [employer] Address [address] [facility] 7t [place] [address] Care Team Providers Care Clin Nurse Name Role Phone Name, Rafiq JENKINS Primary Care Provider [phone] Reason for Visit * Reason Onset Date Comments Med Refill 06/12/2024 Encounter Details Date Type Department Care Team ([facility] st Contact Info) Description 06/12/2024 Telephone [facility] MEDICINE [address] [place], [place] [phone] Name, MD Rafiq [address] [place] [address] Med Refill Social History Tobacco Use Types [...] PM EDT Mass pat checked and [facility]. * Telephone Encounter - Rah Ferrer - 06/12/2024 9:30 AM EDT TC from pt requesting medication refill. Medications needing refill : oxyCODONE-acetaminophen (Percocet) 5-325 MG tablet To be sent to: [id number] [facility] documented in this encounter Plan of Treatment Upcoming Encounters Date Type Department Care Team (Late st Contact Info) Description 02/11/2025 11:30 AM EDT Clinical Support [facility] MEDICINE [address] [place] [address] Krysta Huston RN 03/13/2025 10:30 AM EDT Office Visit [facility] MEDICINE [address] [place] [address] Name, MD Rafiq [address] [place] [address] documented as of this encounter Visit Diagnoses Not on filedocumented in this encounter Additional Health Concerns Assessment Noted Time PHQ-9 Depression Total Score: 0 02/05/20 24 2:30 PM EDT documented as of this encounter Care Teams Clin Nurse Relationship Specialty Start Date End Date Name, MD Rafiq [address] [place] [address] PCP - General Family Medicine 12/16/15 documented as of this encounter
--- OUTSIDE RECORDS SUMMARY | 2025-02-03 12:45 | XMS_ITS | Encounter Summary ---
Author Organization [employer] [facility] Address [address] [place] [address] 7t [place] [address] Care Team Providers Care Drying Room Attendant Name Role Phone Name, Rafiq JENKINS Primary Care Provider [phone] Encounter Details Date Type Department Care Team (Late Contact Info) Description 04/27/2023 Abstract [facility] MEDICINE [address] [place] [address] [phone] Name, MD Rafiq [address] [place] [address] [phone] Social History Tobacco Use Types Packs/Day Years [...] 11:30 AM EDT Clinical Support [facility] MEDICINE [address] [place] [address] Krysta Huston RN 03/13/2025 10:30 AM EDT Office Visit [facility] MEDICINE [address] [place] [address] Name, MD Rafiq [address] [place] [address] documented as of this encounter Procedures Procedure [...] on filedocumented in this encounter Care Teams Drying Room Attendant Relationship Specialty Start Date End Date Name, MD Rafiq [address] [place] [address] PCP - General Family Medicine 12/16/15 documented as of this encounter
--- OUTSIDE RECORDS SUMMARY | 2025-02-03 12:45 | XMS_ITS | Encounter Summary ---
Author Organization [employer] Address [address] [facility] 7t [place] [address] Care Team Providers Care Supervisor Volunteer Services Name Role Phone Name, Rafiq JENKINS Primary Care Provider [phone] Reason for Visit * Reason Comments Care Coordination C3 -[facility] hand telephone call outreach Encounter Details Date Type Department Care Team (Latest Contact Info) Description 01/22/2025 Patient Outreach [facility] [address] [place], [place] [phone] Name, MD Rafiq [address] [place] [address] Care Coordination (C3 DESTIN Miranda telephone call [...] to offer services. CHW introducing herself from [facility] CM Department with CHW's name, department and direct contact number requesting call back. Will re-attempt to contact within 5 days. and address not confirmed. documented in this encounter Plan of Treatment Upcoming Encounters Date Type Department Care Team (Late st Contact Info) Description 02/11/2025 11:30 AM EDT Clinical Support [facility] MED[facility] [address] [place] [address] Krysta Huston RN 03/13/2025 10:30 AM EDT Office Visit [facility] [address] [place] [address] Name, MD Rafiq [address] [place] [address] documented as of this encounter Visit Diagnoses Not on filedocumented in this encounter Additional Health Concerns Assessment Noted Time PHQ-9 Depression Total Score: 0 02/05/20 24 2:30 PM EDT documented as of this encounter Care Teams Supervisor Volunteer Services Relationship Specialty Start Date End Date Name, MD Rafiq [address] [place] [address] PCP - General Family Medicine 12/16/15 documented as of this encounter
--- OUTSIDE RECORDS SUMMARY | 2025-02-03 12:45 | XMS_ITS | Encounter Summary ---
Author Organization [employer] [facility] Address [address] [facility] 7t [place] [address] Care Team Providers Care Mill Washer Name Role Phone Name, Rafiq JENKINS Primary Care Provider [phone] Encounter Details Date Type Department Care Team (Late Contact Info) Description 12/29/2022 Abstract [facility] ADULT DENTAL [address] [place] [address] Dario Lynch DDS [address] [place], [place] [phone] Social History Tobacco Use Types Packs/Day Years [...] Description 02/11/2025 11:30 AM EDT Clinical Support [facility] MEDICINE [address] [place] [address] Krysta Huston RN 03/13/2025 10:30 AM EDT Office Visit [facility] MEDICINE [address] [place] [address] Name, MD Rafiq [address] [place] [address] documented as of this encounter Visit Diagnoses Not on filedocumented in this encounter Care Teams Mill Washer Relationship Specialty Start Date End Date Name, MD Rafiq [address] [place] [address] PCP - General Family Medicine 12/16/15 documented as of this encounter
--- OUTSIDE RECORDS SUMMARY | 2025-02-03 12:45 | XMS_ITS | Encounter Summary ---
Author Organization [employer] Address [address] [facility] 7t [place] [address] Care Team Providers Care Automotive Parts Coordinator Name Role Phone Name, Rafiq JENKINS Primary Care Provider [phone] Reason for Visit * Reason Comments Care Coordination Encounter Details Date Type Department Care Team ([facility] st Contact Info) Description 01/30/2025 Patient Outreach [facility] MED[facility]INE [address] [place], [place] [phone] Name, MD Rafiq [address] [place] [address] Care Coordination Social History Tobacco Use Types [...] outbound call to patient introducing herself from [facility] CM Department, in regards to offering CM-CHW program services. Patient's name and was confirmed. Patient agrees to participate in CHW- program for SDOH needs. SDOH screening completed: 01/30/25, CHW spoke to patient he needs help with transportation to the [facility]. CHW reinforced direct contact information for any additional questions or concerns and extended clinic hourson Mondays and Wednesdays, and Walk-In Urgent Care Located in [facility]. Patient provided with after-hours line for [facility], , which offer night time triage service and option to transfer to partner management consultant provider if needed. Patient verbalizes understanding, and able to repeat back to procedure writer. documented in this encounter Plan of Treatment Upcoming Encounters Date Type Department Care Team ([facility] st Contact Info) Description 02/11/2025 11:30 AM EDT Clinical Support [address] [address] Krysta Huston RN 03/13/2025 10:30 AM EDT Office Visit [facility] [address] [place] [address] Name, MD Rafiq [address] [place] [address] documented as of this encounter Visit Diagnoses Not on filedocumented in this encounter Additional Health Concerns Assessment Noted Time PHQ-9 Depression Total Score: 0 02/05/20 24 2:30 PM EDT documented as of this encounter Care Teams Automotive Parts Coordinator Relationship Specialty Start Date End Date Name, MD Rafiq [address] [place] [phone] PCP - General Family Medicine 12/16/15 documented as of this encounter
--- OUTSIDE RECORDS SUMMARY | 2025-02-03 12:45 | XMS_ITS | Clinical Summary ---
Author Organization [employer] Address [address] [place] [address] 7t [place] [address] Care Team Providers Care Metal Machinist Name Role Phone Name, Rafiq JENKINS Primary Care Provider [phone] Allergies Active Allergy Reactions Criticality Noted Date Comments Ibuprofen 07/21/2015 Bleeding from bladder Naproxen 01/17/2016 Medications clopidogrel (Plavix) 75 MG tablet Take 1 tablet by mouth Once daily. 07/14/20 22 Active Diclofenac Sodium 1 % gel APPLY 2 GRAMS TO AFFECTED AREA TWICE A DAY 08/28/20 22 Active ergocalciferol (Vitamin D-2) 1.25 MG (67218 UT) capsule Take 1 capsule by mouth [...] MG EC tabletIndicatio ns:Coronary artery disease involving nez perce coronary artery of nez perce heart without angina pectoris TAKE 1 TABLET [...] Encounters Date Type Department Care Team Description 02/03/2025 Telephone [facility] MEDICINE [address] [place] [phone] Name, MD Rafiq Durable Medical Equipment (Pulse oxymeter) 02/03/2025 Orders Only [facility] External Provider, [facility] 02/02/2025 9:30 AM EDT Office Visit [facility] [address] [place] [address] Sayda Hernandez MD Hypertension, unspecified type (Primary Dx); Chest pain, unspecified type; Chronic low back pain, unspecified back pain laterality, unspecified whether sciatica present; Dietary counseling; Exercise counseling; Class 2 severe obesity due to excess calories with serious comorbidity and body mass index (BMI) of 37.0 to 37.9 in adult ([facility]) 02/02/2025 Travel 02/01/2025 Refill [facility] [address] [place] [address] Rafiq Grace MD Hypercholesterolemia 01/30/2025 Patient Outreach [facility] [place] [place] [address] Rafiq Grace MD Care Coordination 01/30/2025 Patient Outreach [facility]INE [address] [place] [phone] Rafiq Grace MD Care Coordination ([address] telephone call outreach) 01/29/2025 Telephone [facility] MEDICINE [address] [place] [address] Lesli Antoine MA chartprep 01/26/2025 Patient Outreach [facility]INE [address] [place] [address] Rafiq Grace MD Transition Of Care (Tcm) (HDF- scheduled and SDOH screening positive and Tobacco screening positive) 01/24/2025 Refill [facility] [place] [address] Rafiq Grace MD Mild intermittent asthma, unspecified whether complicated 01/22/2025 Patient Outreach [facility]INE [address] [place] [phone] Rafiq Grace MD Care Coordination ([address] telephone call outreach) 01/22/2025 Telephone [facility] MEDICINE [address] [place] [phone] Rafiq Grace MD Care Management (C3- chart review) 01/20/2025 Telephone [facility] MED[facility]INE [address] [place] [phone] Rafiq Grace MD FMLA (I called the patient, regarding a FMLA application from [employer]. I informed him that it has been faxed 3 times, and it is not going through. He agreed to have it mailed to [employer], and he will pickle cutter a copy at [facility], to keep for his records. ) 01/05/2025 Refill [facility] [place] [address] Rafiq Grace MD Chronic low back pain, unspecified back pain laterality, unspecified whether sciatica present 12/31/2024 Refill [facility] [address] [facility] [place] [address] Latosha Car MD Mild intermittent asthma, unspecified whether complicated 12/25/2024 Orders Only [facility] External Provider, [facility] 12/17/2024 11:30 AM EST Clinical Support [facility] [address] [facility] [place] [address] Krysta Huston RN Chronic pain syndrome (Primary Dx) 12/17/2024 Travel 12/17/2024 Telephone [facility] [address] [facility] [place] [address] Krysta Huston RN Recommend MONEY ORDER CLERK Tier 2 12/05/2024 Refill [facility]INE [address] [place] [address] Rafiq Grace MD Mild intermittent asthma, unspecified whether complicated 12/05/2024 Refill [facility] [place] [address] Rafiq Grace MD Chronic low back pain, unspecified back pain laterality, unspecified whether sciatica present 12/04/2024 Telephone [facility] [place] [address] Rafiq Grace MD No Show 11/18/2024 Telephone [facility] [place] [address] Rafiq Grace MD CALLBACK REQUESTED 11/18/2024 Telephone [facility] [place] [address] Rafiq Grace MD FMLA (I called the patient regarding an application for FMLA, from [employer]. I reached his voicemail, and left a message asking him to return my call at ext [phone].) 11/05/2024 Refill [facility] [place] [address] Rafiq Grace MD Coronary artery disease involving nez perce coronary artery of nez perce heart without angina pectoris 11/05/2024 Refill [facility] [address] [place] [address] Rafiq Grace MD Chronic low back pain, unspecified back pain laterality, unspecified whether sciatica present from Last 3 Months Immunizations Name Administration Dates Next Due HepB-CpG 05/15/2023,04/11/2023 Influenza injectable quadriv alent IIV4 with preservative 11/14/2019,08/28/2016 Influenza injectable quadriv alent preservative free 09/05/2023,08/18/2022,09/03/2017 Influenza, IIV3, injectable 09/10/2015,1 ,08/12/2013,08/20,11/02/2011,04/09/2010,09/07/2008 Influenza, seasonal, injecta ble, preservative free 08/11/2024 Novel [id number], preservative-free 01/26/2010 Pneumococcal Conjugate PCV 20 04/11/2023 [...] 35.9 ??C (96.6 ??F) 02/02/2025 9:40 AM E DT Respiratory Rate 19 02/02/2025 9:40 AM EDT [...] Description 02/11/2025 11:30 AM EDT Clinical Support [facility] [address] [place] [address] Krysta Huston, RN 03/13/2025 10:30 AM EDT Office Visit [facility] MEDICINE [address] [place] [address] Name, MD Rafiq [address] [place] [address] Health Maintenance Due Date Last Done Comments [...] 01/30/2026 01/30/2025 Depression Screening 02/02/2026 02/02/2025, 02/03/20 Tobacco Screening 02/02/2026 02/02/2025 Lipid Panel 10/17/2029 [...] Procedure Name Priority Date/Time Associated Diagnosis Comments XR CHEST 2 VIEWS Routine 02/03/2025 10:4 2 AM EDT COMPREHENSIVE METABOLIC PANEL Routine 02/02/2025 10:18 AM [...] 10:27 AM EST Coronary artery disease involving nez perce coronary artery of nez perce heart with unstable angina pectoris (CMS/HCC) HEPATITIS [...] Recently Relevant to Health Maintenance Results * XR Chest 2 Views (02/03/2025 10:42 AM EDT) Anatomical Region Laterality Modality Chest Radiographic Nova ging 02/03/2025 10:4 2 AM EDT Narrative 02/03/2025 11:00 AM EDT ? [facility] ?[address] ?[place] [address] ?XRay Report ? Signed ? Patient: Deidre Colon,Trenton ?MR#: M ?? [id number] ? : 1965 ?Acct:[id number] ? Age/Sex: 59 / M ?ADM Date: 02/03/25 ? Loc: HO.XRAY ? Attending Dr: Lisa Middleton HIRED HAND ? Ordering Physician: Lisa Middleton NP ?? Date of Service: 02/03/25 ?? Procedure(s): XR chest 2V ?? Accession Number(s): [id number] ? cc: Name,Rafiq JENKINS; Lisa Middleton NP ? EXAMINATION: ??XR CHEST 2 VIEWS ? HISTORY: R05.9 - Cough, unspecified ? COMPARISON: Comparison is made with the prior examination dated ?? 10/17/2024. ? FINDINGS: ??PA and lateral views of the chest are submitted. The lungs ?? are expanded and clear. ??There is no pleural effusion, pneumothorax, or ?? pulmonary vascular congestion. ??The heart is normal in size. ??The bones ?? are intact. ? XR/XR chest 2V ?? IMPRESSION: ?? No acute cardiopulmonary abnormality. ? Electronically signed by: ??Nicolas Gavin MD ??02/03/2025 10:57 AM EDT ?? RP ? Dictated By: ?Nicolas Gavin MD ? Signed By: ?<Electronically signed by Nicolas Gavin MD in OV> ?02/03/25 1057 ? DD/ 1042 ? TD/TT: 02/03/25 1053 ? Process Excellence Manager: ? Procedure Note Navid, Image - 02/03/[address] [address] XRay Report Signed Patient: Erick Bejarano#: M [id number] : 1965Acct:[id number] Age/Sex: 59 / MADM Date: 02/03/25 Loc: HO.XRAY Attending Dr: Lisa Middleton NP Ordering Physician: Lisa Middleton NP Date of Service: 02/03/25 Procedure(s): XR chest 2V Accession Number(s): [id number] cc: Name,Rafiq JENKINS; Lisa Middleton NP EXAMINATION: XR CHEST 2 VIEWS HISTORY: R05.9 - Cough, unspecified COMPARISON: Comparison is made with the prior examination dated 10/17/2024. FINDINGS: PA and lateral views of the chest are submitted. The lungs are expanded and clear. There is no pleural effusion, pneumothorax, or pulmonary vascular congestion. The heart is normal in size. The bones are intact. XR/XR chest 2V IMPRESSION: No acute cardiopulmonary abnormality. Electronically signed by: Nicolas Gavin MD 02/03/2025 10:57 AM EDT Dictated By: Nicolas Gavin MD Signed By: <Electronically signed by Nicolas Gavin MD in OV> 02/03/25 1057 DD/ 1042 TD/TT: 02/03/25 1053 Process Excellence Manager: [facility] External Provider IMG XR PROCEDURES Final Result * (ABNORMAL) CBC auto differential (02/02/2025 10:18 AM EDT) White Blood Count 11.3(H) 4.8 - 10.8 X10*3/uL [facility] Red Blood Count 4.43(L) 4.60 - 5.80 X10*6/uL [facility] Hemoglobin 13.0(L) 14.0 - 18.0 g/dl [facility] Hematocrit 40.1(L) 42.0 - 52.0 % [facility] Mean Corpuscular Volume 90.5 80.0 - 98.0 fL [facility] Mean Corpuscular Hemoglobin 29.3 27.0 - 33.0 pg [facility] Mean Corpuscular HGB Conc 32.4 31.0 - 36.0 g/dl [facility] Red Cell Distribution Width 13.8 11.0 - 16.0 % [facility] Platelet Count 273 160 - 400 X10*3/uL [facility] Mean Platelet Volume 11.1 9.4 - 12.4 fL [facility] Neutrophils Percent Auto 63.5 45 - 73 % [facility] Imm Gran Pct Auto 0.4 0.0 - 0.4 % [facility] Lymphocytes Percent Auto 20.7 20 - 40 % [facility] Monocytes Percent Auto 12.2(H) 2 - 11 % [facility] Eosinophils Percent Auto 2.8 0 - 4 % [facility] Basophils Percent Auto 0.4 0 - 2 % [facility] NRBC Pct Auto 0.0 0.0 - 0.2 /100WBC [facility] Neutrophils Absolute Auto 7.1 2.0 - 8.3 x10*3/uL [facility] Imm Gran Abs Auto 0.05(H) 0.00 - 0.03 X10*3/uL [facility] Lymphocytes Absolute Auto 2.3 1.2 - 4.9 X10*3/uL [facility] Monocytes Absolute Auto 1.4(H) 0.1 - 1.2 X10*3/uL [facility] Eosinophils Absolute Auto 0.3 0.0 - 0.4 X10*3/uL [facility] Basophils Absolute Auto 0.1 0.0 - 0.2 X10*3/uL [facility] NRBC Abs Auto 0.000 0.0 - 0.012 X10*3/uL [facility] Blood Venous blood specimen / Unknown 02/02/2025 10:18 AM EDT 02/02/2025 11:19 AM EDT us Sayda Hernandez MD LAB BLOOD ORDERABLES Final Resul t Performing Organization Address [facility]/ZIP Co de Phone Number [facility] [address] [place] [address] [phone] * (ABNORMAL) Comprehensive Metabolic Panel (02/02/2025 10:18 AM EDT) Sodium 142 135 - 145 mmol/L [facility] Potassium 4.0 3.3 - 5.1 mmol/L [facility] Chloride 114(H) 96 - 108 mmol/L [facility] Carbon Dioxide 24 22 - 29 mmol/L [facility] Anion Gap 8(L) 12 - 20 [facility] Urea Nitrogen (BUN) 14 9 - 16 mg/dL [facility] Creatinine, Serum 0.80 0.5 - 1.4 mg/dL [facility] Estimated Glomerular Filt Rate >60 [facility] Comment:Chronic Kidney Disea se: Estimated GFR < 60 mL/min/[id number] Kidney Disease: Estimated GFR < 15 mL/min/1.73m2 Glucose 87 60 - 115 mg/dL [facility] Calcium 8.8 8.4 - 10.2 mg/dL [facility] Bilirubin, Total 0.8 0.0 - 1.0 mg/dL [facility] Aspartate Amino Transferase 28 5 - 37 U/L [facility] Alanine Aminotransferase 53(H) 0 - 40 U/L [facility] Total Protein 7.0 6.5 - 8.0 g/dL [facility] Albumin Level 3.8 3.5 - 5.0 g/dL [facility] Alkaline Phosphatase 80 39 - 117 U/L [facility] Blood Venous blood specimen / Unknown 02/02/2025 10:18 AM EDT 02/02/2025 11:19 AM EDT us Sayda Hernandez MD LAB BLOOD ORDERABLES Final Resul t Performing Organization Address [facility]/ZIP Co de Phone Number [facility] [address] [place] [address] [phone] * MR Knee w/o Contrast Left (12/25/2024 7:05 PM EST) Anatomical Region Laterality Modality Magnetic Resonan ce 12/25/2024 7:05 PM EST Narrative 12/26/2024 8:17 AM EST ? [facility] ?[address] ?[place] [address] ? Magnetic Resonance Report ? Signed ? Patient: Deidre Colon,Trenton ?MR#: M ?? [id number] ? : 1965 ?Acct:[id number] ? Age/Sex: 59 / M ?ADM Date: 12/25/24 ? Loc: HO.MRI ? Attending Dr: Kristan PETTY ? Ordering Physician: Kristan Oconnell ?? Date of Service: 12/25/24 ?? Procedure(s): MR knee LT wo con ?? Accession Number(s): [id number] ? cc: Kristan Oconnell; Name,Rafiq JENKINS ? [...] ? DD/ 04 ? TD/TT: 12/25/241924 ? Process Excellence Manager: ? Procedure Note Donrobbienighatshyamter, Image - 12/26/2024 [place] [address] Magnetic Resonance Report Signed Patient: Erick Bejarano#: M [id number] : 1965Acct:[id number] Age/Sex: 59 / MADM Date: 12/25/24 Loc: HO.MRI Attending Dr: Kristan PETTY Ordering Physician: Kristan Oconnell Date of Service: 12/25/24 Procedure(s): MR knee LT wo con Accession Number(s): [id number] cc: Kristan Oconnell; Name,Rafiq JENKINS EXAMINATION: MRI [...] OV> 12/26/24 0814 DD/ 04 TD/TT: 12/25/241924 Process Excellence Manager: [facility] External Provider IMG MRI PROCEDURES Final Result * POCT FRANCI-14 Urine Drug Screen (12/17/2024 11:37 AM EST) THC Positive Oxycodone Screen, Urine Positive Urine Urine specimen obtained by clean catch procedure / Unknown 12/17/2024 11:37 AM EST Krysta Moon RN - 12/17/2024 11:37 AM EST UTOX cup Lot#[id number] Exp. 08/20/26 Internal Pass Control Rafiq Grace MD POINT OF CARE TEST ENTER/EDIT OR DERABLES Final Result * FL Esophagus Barium Swallow w/Air (11/27/2024 8:00 AM EST) Anatomical Region Laterality Modality Head, Neck Radiographic Nova ging 11/27/2024 8:00 AM EST Narrative 11/27/2024 4:09 PM EST ? [facility] ?[address] ?[place] [address] ? Fluoroscopy Report ? Signed ? Patient: Deidre Colon,Trenton ?MR#: M ?? [id number] ? : 1965 ?Acct:[id number] ? Age/Sex: 59 / M ?ADM Date: 11/27/24 ? Loc: HO.XRAY ? Attending Dr: Rafiq Grace MD ? Ordering Physician: Rafiq Grace MD ?? Date of Service: 11/27/24 ?? Procedure(s): FL barium swallow with air ?? Accession Number(s): [id number] ? cc: Rafiq Grace MD ? EXAMINATION: [...] DD/ 0800 ? TD/TT: 11/27/24 0825 ? Process Excellence Manager: ? Procedure Note Navid, Image - 11/27/[address] [address] Fluoroscopy Report Signed Patient: Erick Bejarano#: M [id number] : 1965Acct:[id number] Age/Sex: 59 / MADM Date: 11/27/24 Loc: MUSA Attending Dr: Rafiq Grace MD Ordering Physician: Rafiq Grace MD Date of Service: 11/27/24 Procedure(s): FL barium swallow with air Accession Number(s): [id number] cc: Name,Rafiq JENKINS EXAMINATION: XR FLUOROSCOPY UPPER GI WITH AIR [...] by: Omar Rosen MD 11/27/2024 04:07 PM [facility] Dictated By: Juma Erazo Signed By: <Electronically signed by Juma Erazo in OV> 11/27/24 1607 <Electronically signed by Omar Rosen MD in OV> 11/27/24 1609 DD/ 0800 TD/TT: 11/27/24 0825 Process Excellence Manager: us Rafiq Grace MD IMG FLUOROSCOPY PROCEDURES Edite d Result - Final * (ABNORMAL) Lipid Panel, Standard (10/17/2024 10:27 AM EST) Triglycerides 164(H) <150 mg/dL [facility] Comment:Desirable Triglyceri de: less than 150 mg/dLBorderline High Triglyceride 150-199 mg/dLHigh Triglyceride: 200-499 mg/dLVery High Triglyceride: greater than or equal to 5OO mg/dL Cholesterol 214(H) <200 mg/dL [facility] Comment:Desirable Cholestero l: less than 200 mg/dLBorderline High Cholesterol: 200-239 mg/dLHigh Cholesterol: greater than 239 mg/dL LDL Cholesterol Calculated 151(H) <100 mg/dL [facility] Comment:Desirable LDL: less than 100 mg/dLNear Optimal/Above Optimal LDL: 110- 129 mg/dLBorderline High LDL: 130-159 mg/dLHigh LDL: 160-189 mg/dLVery High LDL: greater than or equal to 190 mg/dL HDL Cholesterol 31(L) >40 mg/dL [facility] Comment:Desirable HDL: great er than 40 mg/dL Note: This HDL assay may give artificially low results in patients with liver disease. Blood Venous blood specimen / Unknown 10/17/2024 10:27 AM EST 10/17/2024 11:05 AM EST us Rafiq Grace MD LAB BLOOD ORDERABLES Final Resul t [facility] [address] [place] [phone] * Hepatitis C Ab (02/06/2024 12:22 PM EDT) Hepatitis C Antibody Nonreactive Nonreactive [facility] Comment:Antibodies to HCV no t detected; does not exclude early acuteHCV infection. Blood Venous blood specimen / Unknown 02/06/2024 12:22 PM EDT 02/06/2024 1:11 PM EDT Rafiq Grace MD LAB BLOOD ORDERABLES Final Resul t [facility] [address] [place] [phone] * POCT HGB A1C (12/03/2023 4:16 PM EST) [facility] Hemoglobin A1C 5.6 4.0 - 6.0 % Other 12/03/2023 4:16 PM EST Rafiq Grace MD POINT OF CARE TEST ENTER/EDIT OR DERABLES Final Result * (ABNORMAL) Lung Cancer Screning (07/03/2023) Pathologist [facility] Lung CT LUNGRADS 0(A) LUNGRADS 1, LUNGRADS 2 Anatomical Region Laterality Modality Other Lisa Middleton HEALTH MAINTENANCE Final Resul t * Colonoscopy (12/24/2020 12:59 PM EST) [facility] Colonoscopy Normal Normal Narrative Danielle Orellana - 12/24/2020 12:59 PM EST Recommended 5 year follow up Historical Provider HEALTH MAINTENANCE Final Result from Last 3 Months or Most Recently Relevant to Health Maintenance Insurance [facility] C3 DENTAL-[facility] MEDICAID STAND ADULT DENTAL - HSN FULL (MEDICAID) DENTAL - [employer] DENTAL Care Teams Metal Machinist Relationship Specialty Start Date End Date Name, MD Rafiq [address] [place] [phone] PCP - General Family Medicine 12/16/15
--- OUTSIDE RECORDS SUMMARY | 2025-02-03 12:45 | XMS_ITS | Encounter Summary ---
Author Organization [employer] Address [address] [facility] 7t [place] [address] Care Team Providers Care Senior Service Technician Name Role Phone Name, Rafiq JENKINS Primary Care Provider [phone] Reason for Visit * Reason Onset Date Comments Med Refill 01/05/2025 Encounter Details Date Type Department Care Team ([facility] st Contact Info) Description 01/05/2025 Refill [facility] [address] [place], [place] [phone] Name, MD Rafiq [address] [place], [place] [phone] Chronic low back pain, unspecified back pain [...] MG tablet To be sent to: [facility]/pharmacy #[id number] - [place] [address] [address] documented in this encounter Plan of Treatment Upcoming Encounters Date Type Department Care Team (Late st Contact Info) Description 02/11/2025 11:30 AM EDT Clinical Support [facility] [address] [place] [phone] Krysta Huston RN 03/13/2025 10:30 AM EDT Office Visit [facility] [address] [place] [phone] Name, MD Rafiq [address] [place] [phone] documented as of this encounter Visit Diagnoses Diagnosis Chronic low back pain, unspecified back pain laterality, unspecified whether sciatica present documented in this encounter Additional Health Concerns Assessment Noted Time PHQ-9 Depression Total Score: 0 02/05/20 24 2:30 PM EDT documented as of this encounter Care Teams Senior Service Technician Relationship Specialty Start Date End Date Name, MD Rafiq [address] [place] [address] PCP - General Family Medicine 12/16/15 documented as of this encounter
--- OUTSIDE RECORDS SUMMARY | 2025-02-03 12:45 | XMS_ITS | Encounter Summary ---
Author Organization [employer] Address [address] [facility] 7t [place] [address] Care Team Providers Care Research Advisor Name Role Phone Name, Rafiq JENKINS Primary Care Provider [phone] Reason for Visit * Reason Comments Transition Of Care (Tcm) HDF- scheduled and SDOH screening positive and Tobacco screening positive Encounter Details Date Type Department Care Team ([facility] st Contact Info) Description 01/26/2025 Patient Outreach [facility] [address] [place], [place] [phone] Name, MD Rafiq [address] [place] [address] Transition Of Care (Tcm) (HDF- scheduled and [...] 0904 Hospital Discharges and Admission for [facility] Type of Visit Hospital Admission Date of Admission/Visit 01/22/25 Date of Discharge 01/25/25 Facility [facility] Diagnosis Aortic aneurysm of unspecified site, [...] Wednesdays, and Walk-In Urgent Care Located in [facility] of [facility].Patient provided with after-hours line for [facility], , which offer night time triage serviceand option to transfer to surety bond agent provider if needed. CC scanned discharge summary [...] Description 02/11/2025 11:30 AM EDT Clinical Support [facility] [address] [place] [address] Krysta Huston RN 03/13/2025 10:30 AM EDT Office Visit [facility] [address] [place] [address] NameRafiq MD [address] [place] [address] documented as of this encounter Visit Diagnoses Not on filedocumented in this encounter Additional Health Concerns Assessment Noted Time PHQ-9 Depression Total Score: 0 02/05/20 24 2:30 PM EDT documented as of this encounter Care Teams Research Advisor Relationship Specialty Start Date End Date Rafiq Grace MD [address] [place] [address] PCP - General Family Medicine 12/16/15 documented as of this encounter
--- OUTSIDE RECORDS SUMMARY | 2025-02-03 12:45 | XMS_ITS | Encounter Summary ---
Author Organization [employer] [facility] Address [address] [place] [address] Care Team Providers Care Housekeeper/Laundry Assistant Name Role Phone Name, Rafiq JENKINS Primary Care Provider Unavailoj e Rafiq Grace MD Primary Care Provider Unavailabl e Magdalena Coreas GARAGE MECHANIC Unavailable [phone] Mk Rolon MD Unavailable [phone] Encounter Details Date Type Department Care Team Description 03/18/2014 Transfer Records Medical Records [address] [place] [address] Abstract, Provider Social History Tobacco Use Types [...] on filedocumented in this encounter Care Teams Housekeeper/Laundry Assistant Relationship Specialty Start Date End Date Rafiq Grace MD PCP - General 07/30/08 01/30/16 Rafiq Grace MD PCP - General Internal Medicine 01/31/16 Magdalena Coreas NP Cardiology 04/14/21 Mk Rolon MD [address] [place] [address] [address] [place] [address] Specialist Cardiovascular Disease 04/14/21 documented as of this encounter
--- OUTSIDE RECORDS SUMMARY | 2025-02-03 12:45 | XMS_ITS | Encounter Summary ---
Author Organization [facility] Address [address] [place] [address] Care Team Providers Care Baseball Pitcher Name Role Phone Name, Rafiq JENKINS Primary Care Provider Unavailoj e Rafiq Grace MD Primary Care Provider Unavailabl e Magdalena Coreas BILINGUAL SECRETARY Unavailable [phone] Mk Rolon MD Unavailable [phone] Encounter Details Date Type Department Care Team Description 08/18/2014 Director Of Culture Report Medical Records [address] [place] [address] Violet Swanson MD Social History Tobacco Use [...] on filedocumented in this encounter Care Teams Baseball Pitcher Relationship Specialty Start Date End Date Rafiq Grace MD PCP - General 07/30/08 01/30/16 Rafiq Grace MD PCP - General Internal Medicine 01/31/16 Magdalena Coreas NP Cardiology 04/14/21 Mk Rolon MD [address] [place] [address] [address] [place] [address] Specialist Cardiovascular Disease 04/14/21 documented as of this encounter
--- OUTSIDE RECORDS SUMMARY | 2025-02-03 12:45 | XMS_ITS | Encounter Summary ---
Author Organization [facility] Address [address] [place] [address] Care Team Providers Care Surgical Corsetier Name Role Phone Name, Rafiq JENKINS Primary Care Provider Unavailoj e Rafiq Grace MD Primary Care Provider Unavailabl e Magdalena Coreas FLOOR COVERING PRINTER Unavailable [phone] Mk Rolon MD Unavailable [phone] Encounter Details Date Type Department Care Team Description 02/18/2013 Bi Data Architect Report Medical Records [address] [place] [address] Heather Renner MD Social History Tobacco Use [...] on filedocumented in this encounter Care Teams Surgical Corsetier Relationship Specialty Start Date End Date Rafiq Grace MD PCP - General 07/30/08 01/30/16 Rafiq Grace MD PCP - General Internal Medicine 01/31/16 Magdalena Coreas NP Cardiology 04/14/21 Mk Rolon MD [address] [place] [address] DR[address] [place] [address] Specialist Cardiovascular Disease 04/14/21 documented as of this encounter
--- OUTSIDE RECORDS SUMMARY | 2025-02-03 12:45 | XMS_ITS | Encounter Summary ---
Author Organization [employer] [facility] Address [address] [place] [address] Care Team Providers Care Dredge Worker Name Role Phone Name, Rafiq JENKINS Primary Care Provider Unavailoj e Rafiq Grace MD Primary Care Provider Unavailabl e Magdalena Coreas INFORMATION TECHNOLOGY DATA ANALYST Unavailable [phone] Mk Rolon MD Unavailable [phone] Encounter Details Date Type Department Care Team Description 08/12/2014 Hospital Medical Records [address] [place] [address] Violet Swanson MD Social History Tobacco Use [...] on filedocumented in this encounter Care Teams Dredge Worker Relationship Specialty Start Date End Date Rafiq Grace MD PCP - General 07/30/08 01/30/16 Rafiq Grace MD PCP - General Internal Medicine 01/31/16 Magdalena Coreas NP Cardiology 04/14/21 Mk Rolon MD [address] [place] [address] [address] [place] [address] Specialist Cardiovascular Disease 04/14/21 documented as of this encounter
--- OUTSIDE RECORDS SUMMARY | 2025-02-03 12:45 | XMS_ITS | Encounter Summary ---
Author Organization [employer] [facility] Address [address] [place] [address] Care Team Providers Care Boring Inspector Name Role Phone Name, Rafiq JENKINS Primary Care Provider Unavailoj e Rafiq Grace MD Primary Care Provider Unavailabl e Magdalena Coreas OPTICAL LABORATORY TECHNICIAN Unavailable [phone] Mk Rolon MD Unavailable [phone] Encounter Details Date Type Department Care Team Description 03/13/2012 Cylinder Inspector And Tester Report Medical Records [address] [place] [address] Keny Rodriguez MD Social History Tobacco Use [...] on filedocumented in this encounter Care Teams Boring Inspector Relationship Specialty Start Date End Date Rafiq Grace MD PCP - General 07/30/08 01/30/16 Rfaiq Grace MD PCP - General Internal Medicine 01/31/16 Magdalena Coreas NP Cardiology 04/14/21 Mk Rolon MD [address] [place] [address] [address] [place] [address] Specialist Cardiovascular Disease 04/14/21 documented as of this encounter"
--- OUTSIDE RECORDS SUMMARY | 2025-02-03 12:45 | XMS_ITS | Clinical Summary ---
Author Organization [employer] [facility] Address [address] [place] [address] Care Team Providers Care Classified Advertising Manager Name Role Phone Name, Rafiq JENKINS Primary Care Provider [phone] Surgical History Surgery Date Site/Laterality Comments OTHER SURGICAL HISTORY PROCEDURE: ---- OTHER ----; COMMENT: cardiac cath ESOPHAGOGASTRODUODENOSCOPY 03/28/10 PROCEDURE: [place] ESOPHAGOGASTRODUODENOSCOPY TRANSORAL DIAGNOSTIC; COMMENT: normal TONSILLECTOMY PROCEDURE: [...] age to complete this topic Care Teams Classified Advertising Manager Relationship Specialty Start Date End Date Name, MD Rafiq [address] [place], [place] PCP - General Internal Medicine 07/30/08
--- OUTSIDE RECORDS SUMMARY | 2025-02-03 12:45 | XMS_ITS | Encounter Summary ---
Author Organization [employer] [facility] [facility] [facility] Address [address] [place] [address] Care Team Providers Care Deckhand Clam Dredge Name Role Phone Name, Rafiq JENKINS Primary Care Provider Unavailoj e Rafiq Grace MD Primary Care Provider Unavailabl e Magdalena Coreas MARKET DEVELOPMENT ANALYST Unavailable [phone] Mk Rolon MD Unavailable [phone] Encounter Details Date Type Department Care Team Description 10/01/2010 Hospital Medical Records [address] [place] [address] Alex Be MD Social History Tobacco Use [...] on filedocumented in this encounter Care Teams Deckhand Clam Dredge Relationship Specialty Start Date End Date Rafiq Grace MD PCP - General 07/30/08 01/30/16 Rafiq Grace MD PCP - General Internal Medicine 01/31/16 Magdalena Coreas NP Cardiology 04/14/21 Mk Rolon MD [address] [place] [address] [address] [place] [address] Specialist Cardiovascular Disease 04/14/21 documented as of this encounter
--- OUTSIDE RECORDS SUMMARY | 2025-02-03 12:45 | XMS_ITS | Encounter Summary ---
Author Organization [employer] [facility] Address [address] [facility] 7t [place] [address] Care Team Providers Care [employer] Name Role Phone Name, Rafiq JENKINS Primary Care Provider [phone] Reason for Visit * Reason Onset Date Comments Care Management 01/22/2025 [facility]- chart revi ew Encounter Details Date Type Department Care Team ([facility] Contact Info) Description 01/22/2025 Telephone [facility] [address] [place], [place] [phone] Name, MD Rafiq [address] [place] [address] Care Management ([facility]- chart review) Social History [...] use disorder continuous. Specialists include hand surgery [facility] orthopedics, [facility] GI, podiatry, ophthalmology, [facility]ology, [facility] pain management, [facility] pulmonology, [facility] orthopedics, [facility] general surgery. ED visits within the last 12 months include [facility] 01/21. Last appointment in PCP office on 10/15/24. Next appointment scheduled for 03/13/25. documented in this encounter Plan of Treatment Upcoming Encounters Date Type Department Care Team (Late st Contact Info) Description 02/11/2025 11:30 AM EDT Clinical Support [address] [address] Krysta Huston RN 03/13/2025 10:30 AM EDT Office Visit [facility] [address] [place] [address] Name, MD Rafiq [address] [place] [address] documented as of this encounter Visit Diagnoses Not on filedocumented in this encounter Additional Health Concerns Assessment Noted Time PHQ-9 Depression Total Score: 0 02/05/20 24 2:30 PM EDT documented as of this encounter Care Teams [employer] Relationship Specialty Start Date End Date Name, MD Rafiq [address] [place] [address] PCP - General Family Medicine 12/16/15 documented as of this encounter
--- OUTSIDE RECORDS SUMMARY | 2025-02-03 12:45 | XMS_ITS | Encounter Summary ---
Author Organization [facility] Address [address] [place] [address] Care Team Providers Care Scientific Illustrator Name Role Phone Name, Rafiq JENKINS Primary Care Provider Unavailoj e Rafiq Grace MD Primary Care Provider Unavailabl e Magdalena Coreas NP Unavailable [phone] Mk Rolon MD Unavailable [phone] Reason for Visit * Reason Onset Date Comments REFERRAL 11/24/2013 Encounter Details Date Type Department Care Team Description 11/24/2013 Telephone Adult Medicine [address] [address] Rafiq rGace MD REFERRAL Social History Tobacco Use Types [...] on filedocumented in this encounter Care Teams Scientific Illustrator Relationship Specialty Start Date End Date Name, MD Rafiq PCP - General 07/30/08 01/30/16 Name, MD Rafiq PCP - General Internal Medicine 01/31/16 Magdalena Coreas NP Cardiology 04/14/21 Mk Rolon MD [address] [place] [address] [address] [place] [address] Specialist Cardiovascular Disease 04/14/21 documented as of this encounter
--- OUTSIDE RECORDS SUMMARY | 2025-02-03 12:45 | XMS_ITS | Encounter Summary ---
Author Organization [employer] Address [address] [facility] 7t [place] [address] Care Team Providers Care Flatwork Finisher Name Role Phone Name, Rafiq JENKINS Primary Care Provider [phone] Reason for Visit * Reason Comments Med Refill Encounter Details Date Type Department Care Team ([facility] st Contact Info) Description 02/01/[address] [facility] [address] [place], [place] [phone] Name, MD Rafiq [address] [place], [place] [phone] Hypercholesterolemia Social History Tobacco Use Types Packs/Day [...] 02/11/2025 11:30 AM EDT Clinical Support [facility] [address] [place] [address] Krysta Huston RN 03/13/2025 10:30 AM EDT Office Visit [facility] [address] [place] [address] NameRafiq MD [address] [place] [address] documented as of this encounter Visit Diagnoses Diagnosis Hypercholesterolemia Pure hypercholesterolemia documented in this encounter Additional Health Concerns Assessment Noted Time PHQ-9 Depression Total Score: 0 02/05/20 24 2:30 PM EDT documented as of this encounter Care Teams Flatwork Finisher Relationship Specialty Start Date End Date NameRafiq MD [address] [place] [address] PCP - General Family Medicine 12/16/15 documented as of this encounter
--- OUTSIDE RECORDS SUMMARY | 2025-02-03 12:45 | XMS_ITS | Encounter Summary ---
Author Organization [employer] [facility] Address [address] [place] [address] Care Team Providers Care Transformation Architect Name Role Phone Name, Rafiq JENKINS Primary Care Provider Unavailabl e Name, Rafiq JENKINS Primary Care Provider Unavailabl e Magdalena Coreas NP Unavailable [phone] Mk Rolon MD Unavailable [phone] Reason for Visit * Reason Comments E-prescribe Rx Request Encounter Details Date Type Department Care Team Description 04/16/2015 Refill Physiatry - [place] [address] [place] [address] Olivier Rose DO E-prescribe Rx Request Social [...] on filedocumented in this encounter Care Teams Transformation Architect Relationship Specialty Start Date End Date Lesly, MD Rafiq PCP - General 07/30/08 01/30/16 Name, MD Rafiq PCP - General Internal Medicine 01/31/16 Magdalena Coreas NP Cardiology 04/14/21 Mk Rolon MD [address] [place] [address] [place] [address] Specialist Cardiovascular Disease 04/14/21 documented as of this encounter
--- OUTSIDE RECORDS SUMMARY | 2025-02-03 12:45 | XMS_ITS | Encounter Summary ---
Author Organization [employer] Address [address] [facility] [address] 7t [place] [address] Care Team Providers Care Epic Radiant Analyst Name Role Phone Name, Rafiq JENKINS Primary Care Provider [phone] Reason for Visit * Reason Onset Date Comments FMLA 01/20/2025 I called the pat ient, regarding a FMLA application from [employer]. I informed him that it has been faxed 3 times, and it is not going through. He agreed to have it mailed to [facility], and he will picker / packer a copy at [facility], to keep for his records. Encounter Details Date Type Department Care Team ([facility] st Contact Info) Description 01/20/2025 Telephone [facility] [address] [place] [address] Name, MD Rafiq [address] [place] [address] FMLA (I called the patient, regarding a FMLA application from [employer]. I informed him that it has been faxed 3 times, and it is not going through. He agreed to have it mailed to [employer], and he will picker / packer a copy at HIM, to keep for [...] the patient, regarding a FMLA application from [employer]. I informed him that it has been faxed 3 times, and it is not going through. He agreed to have it mailed to [facility], and he will picker / packer a copy at HIM, to keep for his records. documented in this encounter Plan of Treatment Upcoming Encounters Date Type Department Care Team (Late st Contact Info) Description 02/11/2025 11:30 AM EDT Clinical Support [address] [address] Krysta Huston RN 03/13/2025 10:30 AM EDT Office Visit [facility] [address] [place] [address] Name, MD Rafiq [address] [place] [address] documented as of this encounter Visit Diagnoses Not on filedocumented in this encounter Additional Health Concerns Assessment Noted Time PHQ-9 Depression Total Score: 0 02/05/20 24 2:30 PM EDT documented as of this encounter Care Teams Epic Radiant Analyst Relationship Specialty Start Date End Date Name, MD Rafiq [address] [place] [address] PCP - General Family Medicine 12/16/15 documented as of this encounter
--- OUTSIDE RECORDS SUMMARY | 2025-02-03 12:45 | XMS_ITS | Encounter Summary ---
Author Organization [facility] Address [address] [place] [address] Care Team Providers Care Cement Car Dumper Name Role Phone Name, Rafiq JENKINS Primary Care Provider Unavailabl e Rafiq Grace MD Primary Care Provider Unavailabl e Magdalena Coreas NP Unavailable [phone] Mk Rolon MD Unavailable [phone] Reason for Visit * Reason Onset Date Comments medication problems 08/09/2012 Encounter Details Date Type Department Care Team Description 08/09/2012 Telephone Adult Medicine [address] [address] Name, MD Rafiq medication problems Social History [...] is patients PCP?: Rafiq Grace MD Payor: [employer] FFS Plan: FFS HMO $0 [employer] [id number] Product Type: MEDICAID RISK Pt is not sure he feels there maybe a problem with the medication, he asks that pharmacy is called to explain more fully. documented in this encounter Plan of Treatment Not on file documented as of this encounter Visit Diagnoses Not on filedocumented in this encounter Care Teams Cement Car Dumper Relationship Specialty Start Date End Date Rafiq Grace MD PCP - General 07/30/08 01/30/16 Rafiq Grace MD PCP - General Internal Medicine 01/31/16 Magdalena Coreas NP Cardiology 04/14/21 Mk Rolon MD [address] [place] [address] [address] [place] [address] Specialist Cardiovascular Disease 04/14/21 documented as of this encounter
--- OUTSIDE RECORDS SUMMARY | 2025-02-03 12:45 | XMS_ITS | Encounter Summary ---
Author Organization [employer] [facility] Address [address] [place] [address] Care Team Providers Care Disability Specialist Name Role Phone Name, Rafiq JENKINS Primary Care Provider Unavailoj e Rafiq Grace MD Primary Care Provider Unavailabl e Magdalena Coreas INVESTMENT COUNSELOR Unavailable [phone] Mk Rolon MD Unavailable [phone] Encounter Details Date Type Department Care Team Description 09/30/2010 Hospital Medical Records [address] [place] [address] JoseestephaniePrachi Social History Tobacco Use Types Packs/Day Years [...] on filedocumented in this encounter Care Teams Disability Specialist Relationship Specialty Start Date End Date Rafiq Grace MD PCP - General 07/30/08 01/30/16 Rafiq Grace MD PCP - General Internal Medicine 01/31/16 Magdalena Coreas NP Cardiology 04/14/21 Mk Rolon MD [address] [place] [address] [address] [place] [address] Specialist Cardiovascular Disease 04/14/21 documented as of this encounter
--- OUTSIDE RECORDS SUMMARY | 2025-02-03 12:45 | XMS_ITS | Encounter Summary ---
Author Organization [employer] Address [address] [facility] [address] 7t [place] [address] Care Team Providers Care Roll Filler Name Role Phone Name, Rafiq JENKINS Primary Care Provider [phone] Encounter Details Date Type Department Care Team ([facility] st Contact Info) Description 01/15/2024 Telephone [facility] [address] [place], [place] [phone] Name, MD Rafiq [address] [place] [address] Social History Tobacco Use Types Packs/Day Years [...] t he electric, gas, oil or water [employer] threatened to shut off services in your [...] Alcaraz RN - 01/16/2024 11:46 AM EST [facility] surgical notes re: excision of lipoma on posterior neck sent to medical records. * Telephone Encounter - Rah Ferrer - 01/15/2024 10:28 AM EST Tc from patient calling to inform the PCP the patient had a procedure done on the neck on 01/15 at [facility] for skin lumps and was done by was the doctor who preformed the procedure documented in this encounter Plan of Treatment Upcoming Encounters Date Type Department Care Team (Late st Contact Info) Description 02/11/2025 11:30 AM EDT Clinical Support [address] [address] Krysta Huston RN 03/13/2025 10:30 AM EDT Office Visit [facility] [address] [place] [address] Name, MD Rafiq [address] [place] [address] documented as of this encounter Visit Diagnoses Not on filedocumented in this encounter Care Teams Roll Filler Relationship Specialty Start Date End Date Name, MD Rafiq [address] [place] [address] PCP - General Family Medicine 12/16/15 documented as of this encounter
--- OUTSIDE RECORDS SUMMARY | 2025-02-03 12:45 | XMS_ITS | Encounter Summary ---
Author Organization [facility] Address [address] [place] [address] Care Team Providers Care Arts Education Teacher Name Role Phone Name, Rafiq JENKINS Primary Care Provider Unavailabl e Name, Rafiq JENKINS Primary Care Provider Unavailabl e Magdalena Coreas NP Unavailable [phone] Mk Rolon MD Unavailable [phone] Reason for Visit * Reason Onset Date Comments Provider Call Back 09/20/2012 Encounter Details Date Type Department Care Team Description 09/20/2012 Telephone Physiatry - [address] [address] Olivier Rose DO Provider Call Back Social [...] on filedocumented in this encounter Care Teams Arts Education Teacher Relationship Specialty Start Date End Date Name, MD Rafiq PCP - General 07/30/08 01/30/16 Name, MD Rafiq PCP - General Internal Medicine 01/31/16 Magdalena Coreas NP Cardiology 04/14/21 Mk Rolon MD [address] [place] [address] [address] [place] [address] Specialist Cardiovascular Disease 04/14/21 documented as of this encounter
--- OUTSIDE RECORDS SUMMARY | 2025-02-03 12:45 | XMS_ITS | Encounter Summary ---
Author Organization [facility] Address [address] [place] [address] Care Team Providers Care Secretary Board Of Commissioners Name Role Phone Name, Rafiq JENKINS Primary Care Provider Unavailoj e Rafiq Grace MD Primary Care Provider Unavailabl e Magdalena Coreas NP Unavailable [phone] Mk Rolon MD Unavailable [phone] Reason for Visit * Reason Onset Date Comments Walk In 06/11/2015 Encounter Details Date Type Department Care Team Description 06/11/2015 Telephone Adult Medicine [address] [address] Name, MD Rafiq Walk In Social History [...] vehicle accident? NO If yes, gather 3rd alliance party insurance information Date of accident/Injury: na How long has patient had these symptoms?: Couple of weeks PCP: Rafiq Name Payor: [facility] [employer] FFS / Plan: FFS HMO $0 [place] [id number] / Product Type: MEDICAID RISK documented in this encounter Plan of Treatment Not on file documented as of this encounter Visit Diagnoses Not on filedocumented in this encounter Care Teams Secretary [employer] Commission[employer] Relationship Specialty Start Date End Date Name, MD Rafiq PCP - General 07/30/08 01/30/16 Name, MD Rafiq PCP - General Internal Medicine 01/31/16 Magdalena Coreas NP Cardiology 04/14/21 kM Rolon MD [address] [place] [address] [address] [place] [address] Specialist Cardiovascular Disease 04/14/21 documented as of this encounter
--- OUTSIDE RECORDS SUMMARY | 2025-02-03 12:45 | XMS_ITS | Encounter Summary ---
Author Organization [facility] Address [address] [place] [address] Care Team Providers Care Chemical Process Equipment Operator Name Role Phone Name, Rafiq JENKINS Primary Care Provider Unavailabl e Rafiq Grace MD Primary Care Provider Unavailabl e Magdalena Coreas NP Unavailable [phone] Mk Rolon MD Unavailable [phone] Reason for Visit * Reason Onset Date Comments refill request 11/20/2013 Encounter Details Date Type Department Care Team Description 11/20/2013 Refill Adult Medicine [address] [address] Name, MD Rafiq refill request Social History [...] NO Patients current insurance carrier is: Payor: [employer] FFS Plan: FFS HMO [id number] Product Type: MEDICAID RISK documented in this encounter Plan of Treatment Not on file documented as of this encounter Visit Diagnoses Not on filedocumented in this encounter Care Teams Chemical Process Equipment Operator Relationship Specialty Start Date End Date Rafiq Grace MD PCP - General 07/30/08 01/30/16 Lesly, MD Rafiq PCP - General Internal Medicine 01/31/16 Magdalena Coreas NP Cardiology 04/14/21 Mk Rolon MD [address] [place] [address] [place] [address] Specialist Cardiovascular Disease 04/14/21 documented as of this encounter
--- OUTSIDE RECORDS SUMMARY | 2025-02-03 12:45 | XMS_ITS | Encounter Summary ---
Author Organization [facility] Address [address] [place] [address] Care Team Providers Care Superintendent Seed Mill Name Role Phone Name, Rafiq JENKINS Primary Care Provider Unavailoj e Rafiq Grace MD Primary Care Provider Unavailabl e Magdalena Coreas PRODUCT SAFETY MANAGER Unavailable [phone] Mk Rolon MD Unavailable [phone] Encounter Details Date Type Department Care Team Description 01/16/2013 Medical Science Liaison Report Medical Records [address] [place] [address] Juanjose Palafox MD Social History Tobacco Use [...] on filedocumented in this encounter Care Teams Superintendent Seed Mill Relationship Specialty Start Date End Date Rafiq Grace MD PCP - General 07/30/08 01/30/16 Rafiq Grace MD PCP - General Internal Medicine 01/31/16 Magdalena Coreas NP Cardiology 04/14/21 Mk Rolon MD [address] [place] [address] [address] [place] [address] Specialist Cardiovascular Disease 04/14/21 documented as of this encounter
--- OUTSIDE RECORDS SUMMARY | 2025-02-03 12:45 | XMS_ITS | Encounter Summary ---
Author Organization [employer] Address [address] [facility] 7t [place] [address] Care Team Providers Care English Professor Name Role Phone Name, Rafiq JENKINS Primary Care Provider [phone] Reason for Visit * Reason Comments Med Refill Encounter Details Date Type Department Care Team ([facility] st Contact Info) Description 01/24/2025 Refill [facility] MEDICINE [address] [place] [address] Name, MD Rafiq [address] [place], [place] [phone] Mild intermittent asthma, unspecified whether complicated Social [...] 11:30 AM EDT Clinical Support [facility] MEDICINE [address] [place] [address] Krysta Huston RN 03/13/2025 10:30 AM EDT Office Visit [address] [address] Name, MD Rafiq [address] [place] [address] documented as of this encounter Visit Diagnoses Diagnosis Mild intermittent asthma, unspecified whether complicated documented in this encounter Additional Health Concerns Assessment Noted Time PHQ-9 Depression Total Score: 0 02/05/20 24 2:30 PM EDT documented as of this encounter Care Teams English Professor Relationship Specialty Start Date End Date Name, MD Rafiq [address] [place] [address] PCP - General Family Medicine 12/16/15 documented as of this encounter
--- OUTSIDE RECORDS SUMMARY | 2025-02-03 12:46 | XMS_ITS | Encounter Summary ---
Author Organization [employer] Address [address] 7t [place] [address] Care Team Providers Care Ampoule Sealer Name Role Phone Name, Rafiq JENKINS Primary Care Provider [phone] Encounter Details Date Type Department Care Team ([facility] st Contact Info) Description 02/03/2025 Orders Only [facility] External Provider, [facility] Social History Tobacco Use Types Packs/Day Years [...] 11:30 AM EDT Clinical Support [facility] MEDICINE [address] [place] [address] Krysta Huston RN 03/13/2025 10:30 AM EDT Office Visit [facility]INE [address] [place] [address] Name, MD Rafiq [address] [place] [address] documented as of this encounter Procedures Procedure Name Priority Date/Time Associated Diagnosis Comments XR CHEST 2 VIEWS Routine 02/03/2025 10:4 2 AM EDT documented in this encounter Results * XR Chest 2 Views (02/03/2025 10:42 AM EDT) Anatomical Region Laterality Modality Chest Radiographic Nova ging 02/03/2025 10:4 2 AM EDT Narrative 02/03/2025 11:00 AM EDT ? [facility] ?[address] ?[place] [address] ?XRay Report ? Signed ? Patient: Deidre Colon,Trenton ?MR#: [id number] ?? [id number] ? : 1965 ?Acct:[id number] ? Age/Sex: 59 / M ?ADM Date: 03/11/25 ? Loc: HO.XRAY ? Attending Dr: Lisa Middleton LENDING MANAGER ? Ordering Physician: Lisa Middleton NP ?? Date of Service: 02/03/25 ?? Procedure(s): XR chest 2V ?? Accession Number(s): [id number] ? cc: Name,Rafiq JENKINS; Lisa Middleton NP [...] ??Nicolas Gavin MD ??02/03/2025 10:57 AM EDT ? Dictated By: ?Nicolas Gavin MD ? Signed By: ?<Electronically signed by Nicolas Gavin MD in OV> ?02/03/25 1057 ? DD/ 1042 ? TD/TT: 02/03/25 1053 ? Plant Production Worker: ? Procedure Note Donhajater, Image - 02/03/2025 [place] [address] MARIOay Report Signed Patient: Erick Bejarano#: M [id number] : 1965Acct:[id number] Age/Sex: 59 / MADM Date: 02/03/25 Loc: [facility] Attending Dr: Lisa Middleton NP Ordering Physician: Lisa Middleton NP Date of Service: 02/03/25 Procedure(s): XR chest 2V Accession Number(s): [id number] cc: Rafiq Grace MD; Lisa Middleton NP EXAMINATION: XR CHEST 2 [...] 02/03/25 1057 DD/ 1042 TD/TT: 02/03/25 1053 Plant Production Worker: [facility] External Provider IMG XR PROCEDURES Final Result documented in this encounter Visit Diagnoses Not on filedocumented in this encounter Additional Health Concerns Assessment Noted Time PHQ-9 Depression Total Score: 10 025 11:59 AM EDT documented as of this encounter Care Teams Ampoule Sealer Relationship Specialty Start Date End Date Name, MD Rafiq [address] [place] [address] PCP - General Family Medicine 12/16/15 documented as of this encounter
--- OUTSIDE RECORDS SUMMARY | 2025-02-03 12:46 | XMS_ITS | Encounter Summary ---
Author Organization [facility] Address [address] [place] [address] 7t [place] [address] Care Team Providers Care Customer Relations Specialist Name Role Phone Name, Rafiq JENKINS Primary Care Provider [phone] Reason for Visit * Reason Comments Med Refill Encounter Details Date Type Department Care Team (Late Contact Info) Description 06/07/2023 Refill [facility] MEDICINE [address] [place], [place] [phone] Name, MD Rafiq [address] [place] [address] Tobacco use disorder, continuous Social History Tobacco [...] 02/11/2025 11:30 AM EDT Clinical Support [address] [address] Krysta Huston, RN 03/13/2025 10:30 AM EDT Office Visit [address] [address] Name, MD Rafiq [address] [place] [address] documented as of this encounter Visit Diagnoses Diagnosis Tobacco use disorder, continuous Tobacco use disorder documented in this encounter Care Teams Customer Relations Specialist Relationship Specialty Start Date End Date Name, MD Rafiq [address] [place] [address] PCP - General Family Medicine 12/16/15 documented as of this encounter
--- OUTSIDE RECORDS SUMMARY | 2025-02-03 12:46 | XMS_ITS | Encounter Summary ---
Author Organization [facility] [facility] Address [address] [place] [address] Care Team Providers Care Helicopter Mechanic Name Role Phone Name, Rafiq JENKINS Primary Care Provider Magdalena Esteban AUTOMOTIVE PARTS COUNTER ASSISTANT Unavailable [phone] Mk Rolon MD Unavailable [phone] Encounter Details Date Type Department Care Team Description 11/19/2016 Hospital Medical Records [address] [place] [address] Alberto Loera MD [address] [place] [address] Social History Tobacco Use Types Packs/Day Years [...] on filedocumented in this encounter Care Teams Helicopter Mechanic Relationship Specialty Start Date End Date Name, MD Rafiq PCP - General Internal Medicine 01/31/16 Magdalena Coreas NP Cardiology 04/14/21 Mk Rolon MD [address] [place] [address] [address] [place] [address] Specialist Cardiovascular Disease 04/14/21 documented as of this encounter
--- OUTSIDE RECORDS SUMMARY | 2025-02-03 12:46 | XMS_ITS | Encounter Summary ---
Author Organization [employer] Address [address] 7t [place] [address] Care Team Providers Care Home Improvement Advisor Name Role Phone Name, Rafiq JENKINS Primary Care Provider Reason for Visit * Reason Onset Date Comments chartprep 01/29/2025 Encounter Details Date Type Department Care Team ([facility] st Contact Info) Description 01/29/2025 Telephone [facility] MEDICINE [address] [place], [place] [phone] Lesli Antoine MA chartprep Social History Tobacco [...] Description 02/11/2025 11:30 AM EDT Clinical Support [facility] [address] [place] [address] Krysta Huston RN 03/13/2025 10:30 AM EDT Office Visit [facility] [address] [place] [address] NameRafiq MD [address] [place] [address] documented as of this encounter Visit Diagnoses Not on filedocumented in this encounter Additional Health Concerns Assessment Noted Time PHQ-9 Depression Total Score: 0 02/05/20 24 2:30 PM EDT documented as of this encounter Care Teams Home Improvement Advisor Relationship Specialty Start Date End Date NameRafiq MD [address] [place] [address] PCP - General Family Medicine 12/16/15 documented as of this encounter
--- OUTSIDE RECORDS SUMMARY | 2025-02-03 12:46 | XMS_ITS | Encounter Summary ---
Author Organization [facility] Address [address] [place] [address] Care Team Providers Care Event Marketing Coordinator Name Role Phone Name, Rafiq JENKINS Primary Care Provider Magdalena Esteban NP Unavailable [phone] Mk Rolon MD Unavailable [phone] Reason for Visit * Reason Onset Date Comments Prior Authorization 11/23/2016 Encounter Details Date Type Department Care Team Description 11/23/2016 Telephone Cardiology - [address] [phone] Nga Aguirre PA-C [address] [place] [address] Prior Authorization Social History Tobacco Use Types [...] from auth dept received call back from [facility]. They have gotten an authorization # for the echocardiogram. Auth # [id number] 12/07/16 - 12/07/17 * Telephone Encounter - Nazia Moran - 12/07/2016 1:53 PM EST Received call back from [facility]. They have gotten an authorization # for the echocardiogram. Auth # [id number] 12/07/16 - 12/07/17 * Telephone Encounter - [...] 12/07/2016 1:30 PM EST Patient now has [facility] PCC and needs a prior auth. Still has Dr. Conroy Name as PCP. He is now at [facility]. Called [facility] to acquire authorization. Had to leave [...] on filedocumented in this encounter Care Teams Event Marketing Coordinator Relationship Specialty Start Date End Date Name, MD Rafiq PCP - General Internal Medicine 01/31/16 Magdalena Coreas NP Cardiology 04/14/21 Mk Rolon MD [address] [place] [address] [place] [address] Specialist Cardiovascular Disease 04/14/21 documented as of this encounter
--- OUTSIDE RECORDS SUMMARY | 2025-02-03 12:46 | XMS_ITS | Encounter Summary ---
Author Organization [employer] Address [address] [facility] 7t [place] [address] Care Team Providers Care Paper Bag Press Operator Name Role Phone Name, Rafiq JENKINS Primary Care Provider [phone] Encounter Details Date Type Department Care Team [...] Description 02/11/2025 11:30 AM EDT Clinical Support [facility] MEDICINE [address] [place] [address] Krysta Huston RN 03/13/2025 10:30 AM EDT Office Visit [address] [address] Name, MD Rafiq [address] [place] [address] documented as of this encounter Visit Diagnoses Not on filedocumented in this encounter Additional Health Concerns Assessment Noted Time PHQ-9 Depression Total Score: 10 025 11:59 AM EDT documented as of this encounter Care Teams Paper Bag Press Operator Relationship Specialty Start Date End Date Rafiq Grace MD [address] [place] [address] PCP - General Family Medicine 12/16/15 documented as of this encounter
--- OUTSIDE RECORDS SUMMARY | 2025-02-03 12:46 | XMS_ITS | Encounter Summary ---
Author Organization [facility] Address [address] [place] [address] Care Team Providers Care Cook Chief Name Role Phone Name, Rafiq JENKINS Primary Care Provider Unavailoj e Rafiq Grace MD Primary Care Provider Unavailabl e Magdalena Coreas SANITATION TRUCK DRIVER Unavailable [phone] Mk Rolon MD Unavailable [phone] Encounter Details Date Type Department Care Team Description 07/16/2014 Hospital Medical Records [address] [place] [address] Lynette Nathan MD Social History Tobacco Use [...] on filedocumented in this encounter Care Teams Cook Chief Relationship Specialty Start Date End Date Rafiq Grace MD PCP - General 07/30/08 01/30/16 Rafiq Grace MD PCP - General Internal Medicine 01/31/16 Magdalena Coreas NP Cardiology 04/14/21 Mk Rolon MD [address] [place] [address] [address] [place] [address] Specialist Cardiovascular Disease 04/14/21 documented as of this encounter
--- OUTSIDE RECORDS SUMMARY | 2025-02-03 12:46 | XMS_ITS | Encounter Summary ---
Author Organization [facility] Address [address] [place] [address] 7 [place] [address] Care Team Providers Care Tunnel Worker Name Role Phone Name, Rafiq JENKINS Primary Care Provider [phone] Reason for Visit * Reason Comments Med Refill Encounter Details Date Type Department Care Team (Late st Contact Info) Description 08/03/2023 Refill [facility] MEDICINE [address] [place] [address] [phone] Name, MD Rafiq [address] [place] [address] Social History Tobacco Use Types Packs/Day Years [...] 02/11/2025 11:30 AM EDT Clinical Support [address] [phone] Krysta Huston RN 03/13/2025 10:30 AM EDT Office Visit [address] [address] Name, MD Rafiq [address] [place] [address] documented as of this encounter Visit Diagnoses Not on filedocumented in this encounter Care Teams Tunnel Worker Relationship Specialty Start Date End Date Name, MD Rafiq [address] [place] [address] PCP - General Family Medicine 12/16/15 documented as of this encounter
--- OUTSIDE RECORDS SUMMARY | 2025-02-03 12:46 | XMS_ITS | Encounter Summary ---
Author Organization [id number] [facility] Address [address] [place] [address] 7t [place] [address] Care Team Providers Care Tank Truck Mechanic Name Role Phone Name, Rafiq JENKINS Primary Care Provider [phone] Reason for Visit * Reason Comments Med Refill Encounter Details Date Type Department Care Team (Late Contact Info) Description 06/03/2023 Refill [facility] MEDICINE [address] [place], [place] [phone] Sabine Boyd MD [address] [place], [place] [phone] Tobacco use disorder, continuous Social History Tobacco [...] 02/11/2025 11:30 AM EDT Clinical Support [address] [address] Krysta Huston, LUCAS 03/13/2025 10:30 AM EDT Office Visit [address] [address] Name, MD Rafiq [address] [place] [address] documented as of this encounter Visit Diagnoses Diagnosis Tobacco use disorder, continuous Tobacco use disorder documented in this encounter Care Teams Tank Truck Mechanic Relationship Specialty Start Date End Date Name, MD Rafiq [address] [place] [address] PCP - General Family Medicine 12/16/15 documented as of this encounter
--- OUTSIDE RECORDS SUMMARY | 2025-02-03 12:46 | XMS_ITS | Clinical Summary ---
Author Organization [facility] Address [address] [place] [address] Care Team Providers Care Dietetic Assistant Name Role Phone Name, Rafiq JENKINS Primary Care Provider Magdalena Esteban FILTRATION PLANT MECHANIC Unavailable [phone] Mk Rolon MD Unavailable [phone] Allergies Active Allergy Reactions Severity Noted Date [...] RISK PATIENTS (#2) 2032 03/23/2014 Care Teams Dietetic Assistant Relationship Specialty Start Date End Date Name, MD Rafiq PCP - General Internal Medicine 01/31/16 Magdalena Coreas NP Cardiology 04/14/21 Mk Rolon MD [address] [place] [address] [address] [place] [address] Specialist Cardiovascular Disease 04/14/21
--- OUTSIDE RECORDS SUMMARY | 2025-02-03 12:46 | XMS_ITS | Encounter Summary ---
Author Organization [facility] Address [address] [place] [address] Care Team Providers Care Plumber Gasfitter Name Role Phone Name, Rafiq JENKINS Primary Care Provider Magdalena Esteban LOGISTICS TECH Unavailable [phone] Mk Rolon MD Unavailable [phone] Encounter Details Date Type Department Care Team Description 11/18/2016 [facility] Medical Records [address] [place] [address] Social History Tobacco Use Types Packs/Day Years [...] on filedocumented in this encounter Care Teams Plumber Gasfitter Relationship Specialty Start Date End Date Name, MD Rafiq PCP - General Internal Medicine 01/31/16 Magdalena Coreas, SELINA Cardiology 04/14/21 Mk Rolon MD [address] [place] [address] [address] [place] [address] Specialist Cardiovascular Disease 04/14/21 documented as of this encounter
--- OUTSIDE RECORDS SUMMARY | 2025-02-03 12:46 | XMS_ITS | Encounter Summary ---
Author Organization [facility] Address [address] [place] [address] Care Team Providers Care Draw Off Worker Name Role Phone Name, Rafiq JENKINS Primary Care Provider UnavailMagdalena Dalton BOX MAKER Unavailable Mk Rolon MD Unavailable [phone] Encounter Details Date Type Department Care Team Description 05/29/2017 [facility] Medical Records [address] [place] [address] Ethan Mcnamara PA-C Social History Tobacco Use [...] on filedocumented in this encounter Care Teams Draw Off Worker Relationship Specialty Start Date End Date Name, MD Rafiq PCP - General Internal Medicine 01/31/16 Magdalena Coreas NP Cardiology 04/14/21 Mk Rolon MD [address] [place] [address] [address] [place] [address] Specialist Cardiovascular Disease 04/14/21 documented as of this encounter
--- OUTSIDE RECORDS SUMMARY | 2025-02-03 12:46 | XMS_ITS | Encounter Summary ---
Author Organization [employer] [facility] Address [address] [place] [address] Care Team Providers Care Fire Investigation Lieutenant Name Role Phone Name, Rafiq JENKINS Primary Care Provider Magdalena Esteban SPORTS EQUIPMENT REPAIRER Unavailable [phone] Mk Rolon MD Unavailable [phone] Encounter Details Date Type Department Care Team Description 02/17/2016 Release of Information Medical Records [address] [place] [address] Abstract, Provider Social History Tobacco Use Types [...] filedocumented in this encounter Care Teams Fire Investigation Lieutenant Relationship Specialty Start Date End Date Name, MD Rafiq PCP - General Internal Medicine 01/31/16 Magdalena Coreas, SELINA Cardiology 04/14/21 Mk Rolon MD [address] [place] [address] [address] [place] [address] Specialist Cardiovascular Disease 04/14/21 documented as of this encounter
--- OUTSIDE RECORDS SUMMARY | 2025-02-03 12:46 | XMS_ITS | Encounter Summary ---
Author Organization [employer] Address [address] [facility] 7t [place] [address] Care Team Providers Care Wire Galvanizer Name Role Phone Name, Rafiq JENKINS Primary Care Provider [phone] Reason for Visit * Reason Onset Date Comments Durable Medical Equipment 02/03/2025 Pulse oxymeter Encounter Details Date Type Department Care Team ([facility] Contact Info) Description 02/03/2025 Telephone [facility] MEDICINE [address] [place], [place] [phone] Name, MD Rafiq [address] [place] [address] Durable Medical Equipment (Pulse oxymeter) Social History Tobacco Use Types Packs/Day Years [...] encounter Miscellaneous Notes * Telephone Encounter - Ping Somers - 02/03/2025 11:35 AM EDT DME RX for Pulse oxymeter generated and placed on providers desk for signature. * Telephone Encounter - Ping Somers - 02/03/2025 11:35 AM EDT ----- Message from Sayda Hernandez MD sent at 02/02/2025 11:48 PM EDT ----- PCP Dr. Grace. Patient was requesting a pulse oximetry. Please use Dx ASHLEE, emphysema, and asthma andhave his PCP sign. Thank you documented in this encounter Plan of Treatment Upcoming Encounters Date Type Department Care Team (Late st Contact Info) Description 02/11/2025 11:30 AM EDT Clinical Support [facility] MEDICINE [address] [place] [address] Krysta Huston RN 03/13/2025 10:30 AM EDT Office Visit [facility] MEDICINE [address] [place] [address] Name, MD Rafiq [address] [place] [address] documented as of this encounter Visit Diagnoses Not on filedocumented in this encounter Additional Health Concerns Assessment Noted Time PHQ-9 Depression Total Score: 10 025 11:59 AM EDT documented as of this encounter Care Teams Wire Galvanizer Relationship Specialty Start Date End Date Name, MD Rafiq [address] [place] [address] PCP - General Family Medicine 12/16/15 documented as of this encounter
--- OUTSIDE RECORDS SUMMARY | 2025-02-03 12:46 | XMS_ITS | Encounter Summary ---
Author Organization [employer] [facility] [employer] Address [address] [facility] 7t [place] [address] Care Team Providers Care Rn Renal Name Role Phone Name, Rafiq JENKINS Primary Care Provider [phone] Reason for Visit * Reason Comments Med Change Request Encounter Details Date Type Department Care Team ([facility] st Contact Info) Description 09/24/2023 Refill [facility] MEDICINE [address] [place], [place] [phone] Name, MD Rafiq [address] [place], [place] [phone] Social History Tobacco Use Types Packs/Day Years [...] Description 02/11/2025 11:30 AM EDT Clinical Support [address] [address] Krysta Huston RN 03/13/2025 10:30 AM EDT Office Visit [address] [address] Name, MD Rafiq [address] [place] [address] documented as of this encounter Visit Diagnoses Not on filedocumented in this encounter Care Teams Rn Renal Relationship Specialty Start Date End Date Name, MD Rafiq [address] [place] [address] PCP - General Family Medicine 12/16/15 documented as of this encounter
--- OUTSIDE RECORDS SUMMARY | 2025-02-03 12:46 | XMS_ITS | Encounter Summary ---
Author Organization [employer] Address [address] [facility] [address] [place] [address] Care Team Providers Care Entry Specialist Name Role Phone Name, Rafiq JENKINS Primary Care Provider [phone] Encounter Details Date Type Department Care Team ([facility] st Contact Info) Description 02/02/2025 9:30 AM EDT Office Visit [facility] [address] [place], [place] [phone] Sayda Hernandez MD [address] [place], [place] [phone] Hypertension, unspecified type (Primary Dx); Chest pain, unspecified type; Chronic low back pain, unspecified back pain laterality, unspecified whether sciatica present; Dietary counseling; Exercise counseling; Class 2 severe obesity due to excess calories with serious comorbidity and body mass index (BMI) of 37.0 to 37.9 in adult (CMS/[facility]) Social History Tobacco Use Types Packs/Day Years [...] the past 12 months, has t he [employer], gas, oil or water company threatened to [...] 02/11/2025 11:30 AM EDT Clinical Support [facility] [address] [place] [phone] Krysta Huston RN 03/13/2025 10:30 AM EDT Office Visit [facility] [address] [place] [phone] Name, MD Rafiq [address] [place] [phone] documented as of this encounter Procedures Procedure Name Priority Date/Time Associated Diagnosis Comments CBC WITH AUTO DIFFERENTIAL Routine 02/02/2025 10:18 AM EDT Hypertension, unspecified type COMPREHENSIVE METABOLIC PANEL Routine 02/02/2025 10:18 AM EDT Hypertension, unspecified type documented in this encounter Results * (ABNORMAL) Comprehensive Metabolic Panel (02/02/2025 10:18 AM EDT) Sodium 142 135 - 145 mmol/L [facility] Potassium 4.0 3.3 - 5.1 mmol/L [facility] Chloride 114(H) 96 - 108 mmol/L [facility] Carbon Dioxide 24 22 - 29 mmol/L [facility] Anion Gap 8(L) 12 - 20 [facility] Urea Nitrogen (BUN) 14 9 - 16 mg/dL [facility] Creatinine, Serum 0.80 0.5 - 1.4 mg/dL [facility] Estimated Glomerular Filt Rate >60 [facility] Comment:Chronic Kidney Disea se: Estimated GFR < 60 mL/min/1.52x9Nytztr Kidney Disease: Estimated GFR < 15 mL/min/1.73m2 Glucose 87 60 - 115 mg/dL [facility] Calcium 8.8 8.4 - 10.2 mg/dL [facility] Bilirubin, Total 0.8 0.0 - 1.0 mg/dL [facility] Aspartate Amino Transferase 28 5 - 37 U/L [facility] Alanine Aminotransferase 53(H) 0 - 40 U/L [facility] Total Protein 7.0 6.5 - 8.0 g/dL [facility] Albumin Level 3.8 3.5 - 5.0 g/dL [facility] Alkaline Phosphatase 80 39 - 117 U/L [facility] Blood Venous blood specimen / Unknown 02/02/2025 10:18 AM EDT 02/02/2025 11:19 AM EDT us Sayda Hernandez MD LAB BLOOD ORDERABLES Final Resul t [facility] [address] [place] [phone] * (ABNORMAL) CBC auto differential (02/02/2025 10:18 AM EDT) White Blood Count 11.3(H) 4.8 - 10.8 X10*3/uL [facility] Red Blood Count 4.43(L) 4.60 - 5.80 X10*6/uL [facility] Hemoglobin 13.0(L) 14.0 - 18.0 g/dl [facility] Hematocrit 40.1(L) 42.0 - 52.0 % [facility] Mean Corpuscular Volume 90.5 80.0 - 98.0 fL [facility] Mean Corpuscular Hemoglobin 29.3 27.0 - 33.0 pg [facility] Mean Corpuscular HGB Conc 32.4 31.0 - 36.0 g/dl [facility] Red Cell Distribution Width 13.8 11.0 - 16.0 % [facility] Platelet Count 273 160 - 400 X10*3/uL [facility] Mean Platelet Volume 11.1 9.4 - 12.4 fL [facility] Neutrophils Percent Auto 63.5 45 - 73 % [facility] Imm Gran Pct Auto 0.4 0.0 - 0.4 % [facility] Lymphocytes Percent Auto 20.7 20 - 40 % [facility] Monocytes Percent Auto 12.2(H) 2 - 11 % [facility] Eosinophils Percent Auto 2.8 0 - 4 % [facility] Basophils Percent Auto 0.4 0 - 2 % [facility] NRBC Pct Auto 0.0 0.0 - 0.2 /100WBC [facility] Neutrophils Absolute Auto 7.1 2.0 - 8.3 x10*3/uL [facility] Imm Gran Abs Auto 0.05(H) 0.00 - 0.03 X10*3/uL [facility] Lymphocytes Absolute Auto 2.3 1.2 - 4.9 X10*3/uL [facility] Monocytes Absolute Auto 1.4(H) 0.1 - 1.2 X10*3/uL [facility] Eosinophils Absolute Auto 0.3 0.0 - 0.4 X10*3/uL [facility] Basophils Absolute Auto 0.1 0.0 - 0.2 X10*3/uL [facility] NRBC Abs Auto 0.000 0.0 - 0.012 X10*3/uL [facility] Blood Venous blood specimen / Unknown 02/02/2025 10:18 AM EDT 02/02/2025 11:19 AM EDT us Sayda Hernandez MD LAB BLOOD ORDERABLES Final Resul t [facility] [address] [place] [phone] documented in this encounter Visit Diagnoses [...] documented as of this encounter Care Teams Entry Specialist Relationship Specialty Start Date End Date Name, MD Rafiq [address] [place] [address] PCP - General Family Medicine 12/16/15 documented as of this encounter
--- OUTSIDE RECORDS SUMMARY | 2025-02-03 12:46 | XMS_ITS | Encounter Summary ---
Author Organization [facility] Address [address] [place] [address] Care Team Providers Care Miniature Set Constructor Name Role Phone Name, Rafiq JENKINS Primary Care Provider Magdalena Esteban NP Unavailable Mk Rolon MD Unavailable [phone] Reason for Visit * Reason Onset Date Comments other 03/15/2021 Cardiac Rehab Encounter Details Date Type Department Care Team Description 03/15/2021 Telephone Cardio [facility] [address] [place] [phone] Magdalena Coreas NP [address] [place] [address] Dr Mendes [address] [place] [phone] other (Cardiac Rehab ) Social History Tobacco [...] EDT Pt will like to go to [place] [facility] , I will send over all paperwork to the cardiac rehab office in [place] . documented in this encounter Plan of Treatment Not on file documented as of this encounter Visit Diagnoses Not on filedocumented in this encounter Care Teams Miniature Set Constructor Relationship Specialty Start Date End Date Name, MD Rafiq PCP - General Internal Medicine 01/31/16 Magdalena Coreas NP Cardiology 04/14/21 Mk Rolon MD [address] [place] [address] [place] [address] Specialist Cardiovascular Disease 04/14/21 documented as of this encounter
== END 2025-02-03 09:28 | disposition home or self-care (01) ==
LOC: HO.XRAY 09:27
PROVIDERS: PCP Internal Medicine Geriatric Medicine; Visit Provider Nurse Practitioner Family
DX: J44.9 Chronic obstructive pulmonary disease, unspecified (principal); R05.9 Cough, unspecified
CPT/HCPCS: 71046; 99212

== ENCOUNTER → 2025-02-03 10:42 | Outpatient (BNV) | payer MEDICAID, SELFPAY | PROVIDERS: PCP Internal Medicine Geriatric Medicine; Visit Provider Radiology Diagnostic Radiology | DX: R05.9 Cough, unspecified (principal) | CPT/HCPCS: 71046 ==

== ENCOUNTER 2025-02-12 14:28 | Outpatient (AMB) | payer MEDICAID, SELFPAY ==
[2025-02-12 14:48] VITALS: BP 118/60; PULSE 78; BMI 37.5
--- NOTE | 2025-02-12 14:48 | MHC.OFFVIS ---
Vital Signs 02/12/25 14:48 Height 5 ft 3 in Weight 211 lb 10.3 oz BMI 37.5 BP 118/60 Blood Pressure Location Lt brachial Position Sitting Pulse 78 Pulse Source Pulse Oximeter Intake Visit Reasons: [facility] f/up Allergies naproxen Adverse Reaction (Intermediate, Verified 02/03/25 09:35) kidney problems, hematuria ibuprofen Adverse Reaction (Verified 02/03/25 09:35) hematuria Medication List - Last Reviewed 02/12/25 by Adelaida Oliver CMA albuterol sulfate 90 mcg/actuation 2 puffs inhalation Q4-6H PRN alirocumab (Praluent Pen) 75 mg subcut Q14D amlodipine 2.5 mg PO DAILY arm brace As directed aspirin 81 mg PO DAILY atorvastatin 80 mg PO DAILY baclofen 10 mg PO BID docusate sodium 100 mg PO QAM ergocalciferol (vitamin D2) (Vitamin D2) 1,250 mcg PO QWEEK ezetimibe 10 mg PO QAM fluticasone furoate-vilanterol 200-25 mcg/dose (Breo Ellipta) 1 inh inhalation DAILY fluticasone propionate 50 mcg/actuation 2 sprays intranasal DAILY gabapentin 300 mg PO BID hydrocortisone 2.5% (Proctozone-HC) 1 appl MS BID PRN ipratropium bromide 2 sprays intranasal BID isosorbide mononitrate ER 60 mg PO DAILY metoprolol tartrate 100 mg PO BID 90 days multivitamin with folic acid 400 mcg (Daily-Maddi (with folic acid)) 1 tab PO QAM naloxone 4 mg/actuation 0 sprays intranasal nitroglycerin 0.4 mg sublingual Q5M PRN pantoprazole 20 mg PO DAILY simethicone (Gas Relief (simethicone)) 125 mg PO TID-QID PRN tamsulosin 0.4 mg PO BEDTIME tiotropium bromide 2.5 mcg/actuation (Spiriva Respimat) 2 puffs inhalation DAILY umeclidinium 62.5 mcg/actuation (Incruse Ellipta) 1 inh inhalation DAILY HPI Comments Details: This is a 59-year-old male patient presenting for hospital discharge follow-up visit. The patient has a history of coronary artery disease with previous drug-eluting stent placed in the LCX and RCA in 2009, 2015, and 2020 and to the LAD in 2021. Patient also has a history of COPD, hypertension, hyperlipidemia, and obesity. The patient was recently admitted to the [facility] for severe chest pain, workup revealed a nonischemic EKG, negative troponin, and no pulmonary embolism. 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 He also had a vascular surgery consultation and has an upcoming appointment next week to discuss whether plans. Today, the patient reports intermittent chest pain, which occurs with both exertion and at rest. He describes the pain as stabbing, lasting couple of seconds, and is resolves with rest. The patient reports associated symptoms of shortness of breath during the times when he gets the pain otherwise is denying any palpitations, dizziness, fatigue, orthopnea, PND, leg edema, presyncope, or syncope. The patient reports he has been compliant with all his medications. [facility] Medical History (Updated 02/12/25 @ 16:00 by Robbie Avery NP) Hemorrhoids Acid reflux Fibromyalgia Herniated lumbar intervertebral disc Herniated cervical disc Hx of osteoarthritis Bilateral carpal tunnel syndrome Hx of renal calculi Hx of migraine headaches Anxiety and depression Sleep apnea Smoker Asthma Myocardial infarction Elevated cholesterol CAD (coronary artery disease) HTN (hypertension) Surgical History Status post excision of lipoma Hx of colonoscopy History of cardiac cath History of esophagogastroduodenoscopy (EGD) Hx of tonsillectomy Hx of umbilical hernia repair H/O lithotripsy History of PTCA Family History Mother Lung cancer Father Prostate cancer Social History Household Members: Significant Other and Family Housing: House Are you a primary care mgr to a significant other at home: No Do you presently have visiting nurse or other home services: No 75 years or older and lives alone: No Alcohol intake: current Alcohol intake frequency: holidays/special occasions only Patient Tobacco Use Status: Former Tobacco user Tobacco use type: Cigarette Cigarette Packs Per Day: 0.5 Cigarettes Per Day: 10 Years Smoked: 40/ Quit 12/31/24 Current occupational status: employed 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 Review of Systems Const Denies weakness ENT Denies dizziness Card Denies chest pain, Denies chest pain with activity, Denies syncope, Denies rapid heart rate, Denies pedal edema, Denies edema, Denies leg edema, Denies lightheadedness, Denies palpitations, Denies dyspnea, Denies dyspnea on exertion and Denies orthopnea Resp Denies cough, Denies dyspnea and Denies dyspnea on exertion GI Denies hematochezia and Denies change in stool character Musc Denies abnormal gait, Denies muscle cramps, Denies muscle weakness, Denies numbness, Denies radiating pain into limb and Denies tingling Neuro Denies abnormal gait, Denies dizziness, Denies syncope, Denies numbness, Denies tingling and Denies weakness Endo Denies palpitations Physical Exam Vital Signs: Last Vital Signs Pulse 78 02/12/25 14:48 BP 118/60 02/12/25 14:48 BMI result Body Mass Index 37.5 Const General: cooperative, healthy appearing, comfortable and no acute distress Orientation/consciousness: patient oriented x3 HEENT Head: Yes normal to inspection Neck Neck: Yes normal visual inspection, Yes trachea midline and Yes supple Chest Chest palpation & inspection: normal inspection of the chest Resp Effort & Inspection: normal respiratory effort Auscultation: clear to auscultation bilaterally, no crackles, no rales, no rhonchi and no wheezes Cardio Jugular venous distension: no JVD Palpation: normal PMI Rate: regular rate Rhythm: regular rhythm Heart sounds: S1 normal heart sound present, S2 normal heart sound present, no click, no gallops, no murmurs and no rubs Peripheral pulses: Peripheral pulses 2+ throughout GI Inspection: Yes normal to inspection Palpation (GI): Soft to palpation Auscultation: normal bowel sounds Skin General skin exam: no rashes or lesions noted Neuro General: patient oriented x3 Extrem General: Yes normal to inspection, No no pedal edema and No calf tenderness Psych Appearance: grossly normal Mental Status: mental status grossly normal Speech and movement: Normal speech and movement present Assessment & Plan Assessment & Plan (1) Chest pain: Code(s): R07.9 - Chest pain, unspecified Category: Medical (2) Dyspnea: Code(s): R06.00 - Dyspnea, unspecified Category: Medical (3) CAD (coronary artery disease): Code(s): I25.10 - Atherosclerotic heart disease of [place] coronary artery without angina pectoris Category: Medical (4) HTN (hypertension): Code(s): I10 - Essential (primary) hypertension Category: Medical (5) Dyslipidemia: Code(s): E78.5 - Hyperlipidemia, unspecified Category: Medical (6) Hospital discharge follow-up: Code(s): Z09 - Encounter for follow-up examination after completed treatment for conditions other than malignant neoplasm Plan 01/22/2025-patient underwent chest CTA at [facility] show acute penetrating atherosclerotic ulcer or a saccular aneurysm with mural thrombus. Patient's chest pain and associated shortness of breath may be related to atherosclerotic ulcer however, due to his risk factors, we will proceed with an ischemic workup including a, myocardial perfusion study. Given the patient's knee issues, he is unable to walk on the treadmill, so we will proceed with a Lexiscan. Additionally, we will also obtain an echocardiogram to evaluate for any wall motion abnormalities or valvular dysfunction. The patient will continue with Imdur and metoprolol as prescribed. Patient's blood pressure is well-controlled today. It advised the patient to continue monitoring his blood pressure at home and maintain a log. The target goal for blood pressure less than 130/80. His current regimen should be continued. Most recent lipid panel showed elevated levels despite high-dose statin therapy combined with the ezetimibe. The patient mentioned that his PCP started him on biweekly Praluent injections about 3 months ago, which was confirmed with the pharmacy. We will check his lipid panel aiming for an LDL goal less than 70. Advised a heart healthy diet, regular exercise, weight loss, adherence to CPAP therapy, medication compliance, and aggressive management of vascular risk factors. Follow-up with the completion of the above tests. In the interim, patient will call us with any concerns or change in symptoms. Advised patient to seek ER care in case of exertional chest pain not resolved with rest. This note was generated using voice recognition software. While every effort has been made to ensure accuracy and proper director of application development, there may be occasional errors that could affect the content or meaning of the described symptoms. Orders: Orders Lipid Panel Today I25.10 - Atherosclerotic heart disease of [place] coronary artery without angina pectoris CA echo transthoracic complete Today R06.00 - Dyspnea, unspecified CA lexiscan stress w [facility] Today R07.9 - Chest pain, unspecified NM cardiolite stress test Today R07.9 - Chest pain, unspecified Coding Level of Care Code Est Pt Level 4 (92451) Complex EM visit Add On G2211 Diagnoses Chest pain R07.9 Dyspnea R06.00 CAD (coronary artery disease) I25.10 HTN (hypertension) I10 Dyslipidemia E78.5 Hospital discharge follow-up Z09 Time Spent (min) 38 Comment Time spent in reviewing the chart, test results, assessment, counseling and documentation.
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
--- OUTSIDE RECORDS SUMMARY | 2025-02-12 17:05 | XMS_ITS | Encounter Summary ---
Author Organization [employer] Address [address] [place] [address] Care Team Providers Care Professor Of Legal Studies Name Role Phone Name, Rafiq JENKINS Primary Care Provider [phone] Jairon Rose RN Unavailable [phone] Encounter Details Date Type Department Care Team ([facility] st Contact Info) Description 01/15/2024 Telephone [facility] [address] [place], [place] [phone] Name, MD Rafiq [address] [place] [address] Social History Tobacco Use Types Packs/Day Years [...] Alcaraz RN - 01/16/2024 11:46 AM EST [facility] surgical notes re: excision of lipoma on posterior neck sent to medical records. * Telephone Encounter - Rah Ferrer - 01/15/2024 10:28 AM EST Tc from patient calling to inform the PCP the patient had a procedure done on the neck on 01/15 at [facility] for skin lumps and was done by was the doctor who preformed the procedure documented in this encounter Plan of Treatment Upcoming Encounters Date Type Department Care Team (Late st Contact Info) Description 03/13/2025 10:30 AM EDT Office Visit [facility] [address] [place] [phone] Name, MD Rafiq [address] [place] [phone] 05/13/2025 11:30 AM EDT Clinical Support [facility] [address] [place] [address] Krysta Huston, RN documented as of this encounter Visit Diagnoses Not on filedocumented in this encounter Care Teams Professor Of Legal Studies Relationship Specialty Start Date End Date NameRafiq MD [address] [place] [address] PCP - General Family Medicine 12/16/15 Jairon Rose RN [address] [place] [phone] Pasting InspectorClient Associate 02/05/25 documented as of this encounter
--- OUTSIDE RECORDS SUMMARY | 2025-02-12 17:05 | XMS_ITS | Encounter Summary ---
[facility] Address [address] [place] [address] Care Team Providers Care Bread Oven Operator Name Role Phone Name, Rafiq JENKINS Primary Care Provider Unavailoj e Rafiq Grace MD Primary Care Provider Unavailabl e Magdalena Coreas SLAT BASKET MAKER HELPER Unavailable [phone] Mk Rolon MD Unavailable [phone] Encounter Details Date Type Department Care Team Description 11/20/2013 [facility] Adult [address] [address] Name, MD Rafiq Social History Tobacco Use [...] on filedocumented in this encounter Care Teams Bread Oven Operator Relationship Specialty Start Date End Date Rafiq Grace MD PCP - General 07/30/08 01/30/16 Rafiq Grace MD PCP - General Internal Medicine 01/31/16 Magdalena Coreas NP Cardiology 04/14/21 Mk Rolon MD [address] [place] [address] [address] [place] [address] Specialist Cardiovascular Disease 04/14/21 documented as of this encounter
--- OUTSIDE RECORDS SUMMARY | 2025-02-12 17:05 | XMS_ITS | Encounter Summary ---
Author Organization [employer] Address [address] [facility] 7t [place] [address] Care Team Providers Care Uniform Room Attendant Name Role Phone Name, Rafiq JENKINS Primary Care Provider [phone] Reason for Visit * Reason Comments Care Coordination C3 -KIMBERLY hand telephone call outreach Encounter Details Date Type Department Care Team (Latest Contact Info) Description 01/22/2025 Patient Outreach [facility] [address] [place], [place] [id number] Name, MD Rafiq [address] [place] [address] Care Coordination (C3 DESTIN Miranda telephone call [...] to offer services. CHW introducing herself from [facility] CM Department with CHW's name, department and direct contact number requesting call back. Will re-attempt to contact within 5 days. and address not confirmed. documented in this encounter Plan of Treatment Upcoming Encounters Date Type Department Care Team ([facility] st Contact Info) Description 03/13/2025 10:30 AM EDT Office Visit [facility] [address] [place] [address] Name, MD Rafiq [address] [place] [address] 05/13/2025 11:30 AM EDT Clinical Support [address] [address] Krysta Huston, RN documented as of this encounter Visit Diagnoses Not on filedocumented in this encounter Additional Health Concerns Assessment Noted Time PHQ-9 Depression Total Score: 0 02/05/20 24 2:30 PM EDT documented as of this encounter Care Teams Uniform Room Attendant Relationship Specialty Start Date End Date Name, MD Rafiq [address] [place] [address] PCP - General Family Medicine 12/16/15 documented as of this encounter
--- OUTSIDE RECORDS SUMMARY | 2025-02-12 17:05 | XMS_ITS | Encounter Summary ---
Author Organization [facility] Address [address] [place] [address] Care Team Providers Care Parts Specialist Name Role Phone Name, Rafiq JENKINS Primary Care Provider Unavailoj e Rafiq Grace MD Primary Care Provider Unavailabl e Magdalena Coreas MARINE PILOT Unavailable [phone] Mk Rolon MD Unavailable [phone] Encounter Details Date Type Department Care Team Description 08/18/2014 Before School Babysitter Report Medical Records [address] [place] [address] Violet Swanson MD Social History Tobacco Use [...] on filedocumented in this encounter Care Teams Parts Specialist Relationship Specialty Start Date End Date Rafiq Grace MD PCP - General 07/30/08 01/30/16 Rafiq Grace MD PCP - General Internal Medicine 01/31/16 Magdalena Coreas NP Cardiology 04/14/21 Mk Rolon MD [address] [place] [address] [address] [place] [address] Specialist Cardiovascular Disease 04/14/21 documented as of this encounter
--- OUTSIDE RECORDS SUMMARY | 2025-02-12 17:05 | XMS_ITS | Clinical Summary ---
Author Organization [facility] Address [address] [place] [address] Care Team Providers Care Senior Analyst Programmer Name Role Phone Name, Rafiq JENKINS Primary Care Provider [phone] Surgical History Surgery Date Site/Laterality Comments OTHER SURGICAL HISTORY PROCEDURE: ---- OTHER ----; COMMENT: cardiac cath ESOPHAGOGASTRODUODENOSCOPY 03/28/10 PROCEDURE: ME ESOPHAGOGASTRODUODENOSCOPY TRANSORAL DIAGNOSTIC; COMMENT: normal TONSILLECTOMY PROCEDURE: [...] age to complete this topic Care Teams Senior Analyst Programmer Relationship Specialty Start Date End Date Name, MD Rafiq [address] [place], [place] PCP - General Internal Medicine 07/30/08
--- OUTSIDE RECORDS SUMMARY | 2025-02-12 17:05 | XMS_ITS | Encounter Summary ---
Author Organization [facility] Address [address] [place] [address] Care Team Providers Care Corrections Identification Technician Name Role Phone Name, Rafiq JENKINS Primary Care Provider Unavailoj e Rafiq Grace MD Primary Care Provider Unavailabl e Magdalena Coreas CENTRAL OFFICE INSPECTOR Unavailable [phone] Mk Rolon MD Unavailable [phone] Encounter Details Date Type Department Care Team Description 07/01/2012 Transfer Records Medical Records [address] [place] [address] Abstract, Provider Social History Tobacco Use Types [...] on filedocumented in this encounter Care Teams Corrections Identification Technician Relationship Specialty Start Date End Date Rafiq Grace MD PCP - General 07/30/08 01/30/16 Rafiq Grace MD PCP - General Internal Medicine 01/31/16 Magdalena Coreas, SELINA Cardiology 04/14/21 Mk Rolon MD [address] [place] [address] [address] [place] [address] Specialist Cardiovascular Disease 04/14/21 documented as of this encounter
--- OUTSIDE RECORDS SUMMARY | 2025-02-12 17:05 | XMS_ITS | Encounter Summary ---
Author Organization [facility] Address [address] [place] [address] Care Team Providers Care Parking Enforcer Name Role Phone Name, Rafiq JENKINS Primary Care Provider Unavailoj e Rafiq Grace MD Primary Care Provider Unavailabl e Magdalena Coreas SUPERVISOR DRAWING Unavailable [phone] Mk Rolon MD Unavailable [phone] Encounter Details Date Type Department Care Team Description 03/23/2014 Business Doc Medical Records [address] [place] [address] Abstract, Provider Social History Tobacco Use Types [...] on filedocumented in this encounter Care Teams Parking Enforcer Relationship Specialty Start Date End Date Rafiq Grace MD PCP - General 07/30/08 01/30/16 Rafiq Grace MD PCP - General Internal Medicine 01/31/16 Magdalena Coreas NP Cardiology 04/14/21 Mk Rolon MD [address] [place] [address] [address] [place] [address] Specialist Cardiovascular Disease 04/14/21 documented as of this encounter
--- OUTSIDE RECORDS SUMMARY | 2025-02-12 17:05 | XMS_ITS | Encounter Summary ---
Author Organization [facility] Address [address] [place] [address] Care Team Providers Care Insurance Billing Specialist Name Role Phone Name, Rafiq JENKINS Primary Care Provider Unavailoj e Rafiq Grace MD Primary Care Provider Unavailabl e Magdalena Coreas NP Unavailable [phone] Mk Rolon MD Unavailable [phone] Reason for Visit * Reason Onset Date Comments Walk In 06/11/2015 Encounter Details Date Type Department Care Team Description 06/11/2015 Telephone Adult Medicine [address] [address] Name, MD Rafiq Walk In Social History [...] [employer] FFS / Plan: FFS HMO $0 [place] [id number] / Product Type: MEDICAID RISK documented in this encounter Plan of Treatment Not on file documented as of this encounter Visit Diagnoses Not on filedocumented in this encounter Care Teams Insurance Billing Specialist Relationship Specialty Start Date End Date Name, MD Rafiq PCP - General 07/30/08 01/30/16 Name, MD Rafiq PCP - General Internal Medicine 01/31/16 Magdalena Coreas NP Cardiology 04/14/21 Mk Rloon MD [address] [place] [address] [address] [place] [address] Specialist Cardiovascular Disease 04/14/21 documented as of this encounter
--- OUTSIDE RECORDS SUMMARY | 2025-02-12 17:05 | XMS_ITS | Encounter Summary ---
Author Organization [facility] Address [address] [place] [address] Care Team Providers Care Renewals Representative Name Role Phone Name, Rafiq JENKINS Primary Care Provider Unavailoj e Rafiq Grace MD Primary Care Provider Unavailabl e Magdalena Coreas COMPUTER SUPPORT ANALYST Unavailable [phone] Mk Rolon MD Unavailable [phone] Encounter Details Date Type Department Care Team Description 11/25/2013 Orders Only Physiatry - [place] [address] [place] [address] Ashley Drew PA-C Social History Tobacco Use [...] on filedocumented in this encounter Care Teams Renewals Representative Relationship Specialty Start Date End Date Rafiq Grace MD PCP - General 07/30/08 01/30/16 Rafiq Grace MD PCP - General Internal Medicine 01/31/16 Magdalena Coreas NP Cardiology 04/14/21 Mk Rolon MD [address] [place] [address] [address] [place] [address] Specialist Cardiovascular Disease 04/14/21 documented as of this encounter
--- OUTSIDE RECORDS SUMMARY | 2025-02-12 17:05 | XMS_ITS | Encounter Summary ---
Author Organization [facility] Address [address] [place] [address] Care Team Providers Care Scale Assembly Set Up Worker Name Role Phone Name, Rafiq JENKINS Primary Care Provider Unavailabl e Name, Rafiq JENKINS Primary Care Provider Unavailabl e Magdalena Coreas NP Unavailable [phone] Mk Rolon MD Unavailable [phone] Reason for Visit * Reason Comments E-prescribe Rx Request Encounter Details Date Type Department Care Team Description 04/16/2015 Refill Physiatry - [place] [address] [place] [address] Olivier Rose DO E-prescribe Rx Request Social [...] on filedocumented in this encounter Care Teams Scale Assembly Set Up Worker Relationship Specialty Start Date End Date Lesly, MD Rafiq PCP - General 07/30/08 01/30/16 Name, MD Rafiq PCP - General Internal Medicine 01/31/16 Magdalena Coreas NP Cardiology 04/14/21 Mk Rolon MD [address] [place] [address] [place] [address] Specialist Cardiovascular Disease 04/14/21 documented as of this encounter
--- OUTSIDE RECORDS SUMMARY | 2025-02-12 17:05 | XMS_ITS | Encounter Summary ---
Author Organization [facility] Address [address] [place] [address] Care Team Providers Care Special Education Coordinator Name Role Phone Name, Rafiq JENKINS Primary Care Provider Unavailoj e Rafiq Grace MD Primary Care Provider Unavailabl e Magdalena Coreas SAMPLER OVENS Unavailable [phone] Mk Rolon MD Unavailable [phone] Encounter Details Date Type Department Care Team Description 08/12/2014 Hospital Medical Records [address] [place] [address] Violet Swanson MD Social History Tobacco Use [...] filedocumented in this encounter Care Teams Special Education Coordinator Relationship Specialty Start Date End Date Rafiq Grace MD PCP - General 07/30/08 01/30/16 Rafiq Grace MD PCP - General Internal Medicine 01/31/16 Magdalena Coreas NP Cardiology 04/14/21 Mk Rolon MD [address] [place] [address] [address] [place] [address] Specialist Cardiovascular Disease 04/14/21 documented as of this encounter
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
--- OUTSIDE RECORDS SUMMARY | 2025-02-12 17:05 | XMS_ITS | Encounter Summary ---
Author Organization [facility] Address [address] [place] [address] Care Team Providers Care Bench Jeweler Name Role Phone Name, Rafiq JENKINS Primary Care Provider Unavailoj e Rafiq Grace MD Primary Care Provider Unavailabl e Magdalena Coreas MACHINE FEEDER RAW STOCK Unavailable [phone] Mk Rolon MD Unavailable [phone] Encounter Details Date Type Department Care Team Description 09/30/2010 Hospital Medical Records [address] [place] [address] JoseestephaniePrachi Social History Tobacco Use Types Packs/Day [...] on filedocumented in this encounter Care Teams Bench Jeweler Relationship Specialty Start Date End Date Rafiq Grace MD PCP - General 07/30/08 01/30/16 Rafiq Grace MD PCP - General Internal Medicine 01/31/16 Magdalena Coreas NP Cardiology 04/14/21 Mk Rolon MD [address] [place] [address] [address] [place] [address] Specialist Cardiovascular Disease 04/14/21 documented as of this encounter
--- OUTSIDE RECORDS SUMMARY | 2025-02-12 17:05 | XMS_ITS | Encounter Summary ---
Author Organization [email or web address] Address [address] [facility] 7t [place] [address] Care Team Providers Care Cinema Or Theatre Manager Name Role Phone Name, Rafiq JENKINS Primary Care Provider [phone] Reason for Visit * Reason Onset Date Comments Care Management 01/22/2025 [facility]- chart revi ew Encounter Details Date Type Department Care Team ([facility] Contact Info) Description 01/22/2025 Telephone [facility] [address] [place], [place] [phone] Name, MD Rafiq [address] [place] [address] Care Management (C3CM- chart review) Social History [...] use disorder continuous. Specialists include hand surgery [facility], [facility] GI, podiatry, ophthalmology, [facility], [facility], [facility] pulmonology, [facility] orthopedics, [facility] general surgery. ED visits within the last 12 months include [facility] 01/21. Last appointment in PCP office on 10/15/24. Next appointment scheduled for 03/13/25. documented in this encounter Plan of Treatment Upcoming Encounters Date Type Department Care Team (Late st Contact Info) Description 03/13/2025 10:30 AM EDT Office Visit [facility] [address] [place] [address] Name, MD Rafiq [address] [facility] [place] [address] 05/13/2025 11:30 AM EDT Clinical Support [facility] [address] [facility] [address] Krysta Huston RN documented as of this encounter Visit Diagnoses Not on filedocumented in this encounter Additional Health Concerns Assessment Noted Time PHQ-9 Depression Total Score: 0 02/05/20 24 2:30 PM EDT documented as of this encounter Care Teams Cinema Or Theatre Manager Relationship Specialty Start Date End Date Name, MD Rafiq [address] [facility] [address] PCP - General Family Medicine 12/16/15 documented as of this encounter
--- OUTSIDE RECORDS SUMMARY | 2025-02-12 17:05 | XMS_ITS | Encounter Summary ---
Author Organization [facility] Address [address] [place] [address] Care Team Providers Care Financial Consultant Name Role Phone Name, Rafiq JENKINS Primary Care Provider Unavailabl e Rafiq Grace MD Primary Care Provider Unavailabl e Magdalena Coreas NP Unavailable [phone] Mk Rolon MD Unavailable [phone] Reason for Visit * Reason Onset Date Comments medication problems 08/09/2012 Encounter Details Date Type Department Care Team Description 08/09/2012 Telephone Adult Medicine [address] [address] Name, MD Rafiq medication problems Social History [...] is patients PCP?: Rafiq Grace MD Payor: [employer] FFS Plan: FFS HMO $0 [email or web address] [id number] Product Type: MEDICAID RISK Pt is not sure he feels there maybe a problem with the medication, he asks that pharmacy is called to explain more fully. documented in this encounter Plan of Treatment Not on file documented as of this encounter Visit Diagnoses Not on filedocumented in this encounter Care Teams Financial Consultant Relationship Specialty Start Date End Date Rafiq Grace MD PCP - General 07/30/08 01/30/16 Rafiq Grace MD PCP - General Internal Medicine 01/31/16 Magdalena Coreas NP Cardiology 04/14/21 Mk Rolon MD [address] [place] [address] [address] [place] [address] Specialist Cardiovascular Disease 04/14/21 documented as of this encounter
--- OUTSIDE RECORDS SUMMARY | 2025-02-12 17:05 | XMS_ITS | Encounter Summary ---
Author Organization [employer] [facility] Address [address] [place] [address] Care Team Providers Care Medication Aide Name Role Phone Name, aRfiq JENKINS Primary Care Provider Unavailoj e Rafiq Grace MD Primary Care Provider Unavailabl e Magdalena Coreas POWER SYSTEM DISPATCHER Unavailable [phone] Mk Rolon MD Unavailable [phone] Encounter Details Date Type Department Care Team Description 09/30/2010 Hospital Medical Records [address] [place] [address] Dayron Herrera MD Social History Tobacco Use [...] on filedocumented in this encounter Care Teams Medication Aide Relationship Specialty Start Date End Date Rafiq Grace MD PCP - General 07/30/08 01/30/16 Rafiq Grace MD PCP - General Internal Medicine 01/31/16 Magdalena Coreas NP Cardiology 04/14/21 Mk Rolon MD [address] [place] [address] [address] [place] [address] Specialist Cardiovascular Disease 04/14/21 documented as of this encounter
--- OUTSIDE RECORDS SUMMARY | 2025-02-12 17:05 | XMS_ITS | Encounter Summary ---
Author Organization [facility] Address [address] [place] [address] Care Team Providers Care Debt Recovery Officer Name Role Phone Name, Rafiq JENKINS Primary Care Provider Unavailoj e Rafiq Grace MD Primary Care Provider Unavailabl e Magdalena Coreas WIND TURBINE MECHANIC Unavailable [phone] Mk Rolon MD Unavailable [phone] Encounter Details Date Type Department Care Team Description 03/18/2014 Transfer Records Medical Records [address] [place] [address] Abstract, Provider Social History Tobacco Use Types [...] on filedocumented in this encounter Care Teams Debt Recovery Officer Relationship Specialty Start Date End Date Rafiq Grace MD PCP - General 07/30/08 01/30/16 Rafiq Grace MD PCP - General Internal Medicine 01/31/16 Magdalena Coreas NP Cardiology 04/14/21 Mk Rolon MD [address] [place] [address] [address] [place] [address] Specialist Cardiovascular Disease 04/14/21 documented as of this encounter
--- OUTSIDE RECORDS SUMMARY | 2025-02-12 17:05 | XMS_ITS | Encounter Summary ---
Author Organization [employer] Address [address] [facility] 7t [place] [address] Care Team Providers Care National Sales Executive Name Role Phone Name, Rafiq JENKINS Primary Care Provider [phone] Jairon Rose RN Unavailable [phone] Reason for Visit * Reason Onset Date Comments Med Refill 06/12/2024 Encounter Details Date Type Department Care Team ([facility] st Contact Info) Description 06/12/2024 Telephone [facility] [address] [place], [place] [phone] Name, MD Rafiq [address] [place] [address] Med Refill Social History Tobacco Use Types [...] Ambriz RN - 06/12/2024 1:23 PM EDT [facility] pat checked and meds. [facility] for approval. * Telephone Encounter - Rah Ferrer - 06/12/2024 9:30 AM EDT TC from pt requesting medication refill. Medications needing refill : oxyCODONE-acetaminophen (Percocet) 5-325 MG tablet To be sent to: [id number] [facility] documented in this encounter Plan of Treatment Upcoming Encounters Date Type Department Care Team (Late st Contact Info) Description 03/13/2025 10:30 AM EDT Office Visit [facility] [address] [place] [address] Name, MD Rafiq [address] [place] [address] 05/13/2025 11:30 AM EDT Clinical Support [facility] [address] [place] [address] Krysta Huston, RN documented as of this encounter Visit Diagnoses Not on filedocumented in this encounter Additional Health Concerns Assessment Noted Time PHQ-9 Depression Total Score: 0 02/05/20 24 2:30 PM EDT documented as of this encounter Care Teams National Sales Executive Relationship Specialty Start Date End Date Name, MD Rafiq [address] [place] [address] PCP - General Family Medicine 12/16/15 Jairon Rose, RN [address] [place] [address] Rail Maintenance WorkerProduction Manufacturing Worker 02/05/25 documented as of this encounter
--- OUTSIDE RECORDS SUMMARY | 2025-02-12 17:06 | XMS_ITS | Encounter Summary ---
Author Organization [employer] Address [address] [place] [address] Care Team Providers Care Supply Chain Analyst Name Role Phone Name, Rafiq JENKINS Primary Care Provider [phone] Encounter Details Date Type Department Care Team ([facility] st Contact Info) Description 02/02/2025 9:30 AM EDT Office Visit [facility] MEDICINE [address] [place], [place] [phone] Sayda Hernandez MD [address] [place], [place] [phone] Hypertension, unspecified type (Primary Dx); Chest pain, unspecified type; Chronic low back pain, unspecified back pain laterality, unspecified whether sciatica present; Dietary counseling; Exercise counseling; Class 2 severe obesity due to excess calories with serious comorbidity and body mass index (BMI) of 37.0 to 37.9 in adult ([facility]); Coronary artery disease involving tribal coronary artery of tribal heart with unstable angina pectoris ([facility]); Abnormal computed tomography angiography of heart Social History Tobacco Use Types Packs/Day Years [...] 9:40 AM EDT documented in this encounter Progress Notes * Sayda Hernandez MD - 02/02/2025 9:30 AM EDT Subjective Trenton Elaine is a 59 y.o. male who has hypertension, CAD s/p SAQIB, and ASHLEE, and patient presents for hospital discharge follow-up. Background: Patient was hospitalized at [facility] from 01/22/25 to 01/25/25. PreHDF summary was completed by our pharmacist. Patient presented with chest pain. Normal EKG. CTA finding was abnormal, and he was evaluated by vascular surgeon, and was recommended an outpatient follow up. Amlodipine dose was increased from2.5 to 5 mg daily. 01/22/[address] / CTA / abd/pelvis CT CTA 1. No pulmonary embolism. 2. There is a focal abnormality of the distal thoracic aortic arch, with a focal outpouching of contrast extending through the intima which could potentially be acute. This finding could be explained by penetrating atherosclerotic ulcer or a saccular aneurysm with mural thrombus. Its age cannot be determined without benefit of prior exams. This finding can be correlated w ith patient's current symptoms. 3.. Normal ascending and descending thoracic aorta. 4. Normal abdominal aorta. 5. 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 CHEST 1. Emphysema with no significant superimposed acute there are pleural abnormality.. 2. Coronary artery stents. 3. No fracture. ABDOMEN AND PELVIS 1. No acute soft tissue abnormality.. 2. No fracture. 3. Incidental note is normal diameter appendix with no inflammatory change. It is filled with small metal density ingested structures. This finding can be seen in patients who eat wild game and inadvertently ingest lead shot. Today: Pt states he often feels like he is going to fall. He reports pressure from his lower sternum towards his lower left chest, along his left rib. No radiation to arm or jaw. No diaphoresis. He notes hefeels shortness of breath and a burning sensation to his arms with exertion. He states he is no longer taking clopidogrel. He is still taking ASA. He states clopidogrel was discontinued when he was having carpal tunnel release surgery. He states the commodities requirements analyst told him to stop because he has already completed > 1 year of DAPT. Pt reports he takes oxycodone for chronic pain and requests a refill. Pt has an appointment with his Pin Machine Operator in [facility] on February 19. Pt notes he has not picked up his new BP medications with the higher dose, and has continued to use his previous 2.5 mg dose. Ptrequests metoprolol a refill. Pt reports he stopped smoking on Dec 31 2024 and has an appointment tomorrow with his field specialist. He was seen by [facility] Cardiology for preop, but [facility] record states patient follows with [facility] cardiology. Patient states he follows with [facility] cardiology, Dr. Chavez. [facility] discharge summary recommends CBC and CMP in 1 week (not specifying indication). In regards to interesting finding on abd/pelvis CT, he states he does not eat any wild meat. He hadventral hernia surgery. No gun shot wound. No pica. Review of Systems Constitutional: Negative for activity change, appetite change and fever. Respiratory: Negative for shortness of breath. Cardiovascular: Negative for chest pain. Objective Vitals: 02/02/25 0940 02/02/25 1000 BP: 108/61 128/88 BP Location: Left arm Patient Position: Sitting BP Cuff Size: Adult Pulse: 59 Resp: 19 Temp: 96.6 ??F (35.9 ??C) TempSrc: Temporal SpO2: 97% Weight: 213 lb (96.6 kg) Height: 5' 3 (1.6 m) Physical Exam Constitutional: General: He is not in acute distress. Appearance: Normal appearance. He is not ill-appearing. HENT: Head: Normocephalic and atraumatic. Mouth/Throat: Mouth: Mucous membranes are moist. Eyes: Extraocular Movements: Extraocular movements intact. Pupils: Pupils are equal, round, and reactive to light. Cardiovascular: Rate and Rhythm: Normal rate and regular rhythm. Heart sounds: No murmur heard. Pulmonary: Effort: Pulmonary effort is normal. No respiratory distress. Breath sounds: Normal breath sounds. No wheezing or rhonchi. Skin: General: Skin is warm. Neurological: Mental Status: He is alert. Mental status is at baseline. Psychiatric: Mood and Affect: Mood normal. Results: Lab Results Component Value Date NA 142 02/02/2025 K 4.0 02/02/2025 CL 114 (H) 02/02/2025 CO2 24 02/02/2025 BUN 14 02/02/2025 CREATININE 0.80 02/02/2025 CRCLCALCPH 88.0 01/08/2024 EGFR >60 02/02/2025 GLUCOSE 87 02/02/2025 TOTALBILIRUB 0.8 02/02/2025 AST 28 02/02/2025 ALT 53 (H) 02/02/2025 TOTPROTEIN 7.0 02/02/2025 ALB 3.8 02/02/2025 ALP 80 02/02/2025 Lab Results Component Value Date TRIG 164 (H) 10/17/2024 CHOL 214 (H) 10/17/2024 LDLCHOLCAL 151 (H) 10/17/2024 HDL 31 (L) 10/17/2024 Lab Results Component Value Date HGBA1C 5.6 12/03/2023 Lab Results Component Value Date WBC 11.3 (H) 02/02/2025 HGB 13.0 (L) 02/02/2025 HCT 40.1 (L) 02/02/2025 PLT 273 02/02/2025 MCV 90.5 02/02/2025 Assessment/Plan Problem List Items Addressed This Visit HTN (hypertension) - Primary - Pt is currently prescribed Metoprolol, 100 mg twice daily and Amlodipine, 5mg once daily. Pt is still taking 2.5 mg daily and his BP is at goal. Pt was advised to monitor his home BP and keep taking 2.5 mg daily as long as his BP is < 120. Relevant Orders CBC auto differential (Completed) Comprehensive Metabolic Panel (Completed) CAD (coronary artery disease) - s/p SAQIB to LCx and RCA, most recent PCI in 2021 - s/p > 1 year of DAPT, now on ASA only - continue statin, metoprolol, isosorbide, and amlodipine - continue following with Tx plan per PCP and commodities requirements analyst - continue working on lifestyle modifications, especially smoking cessation Relevant Medications metoprolol tartrate (Lopressor) 100 MG tablet Chronic back pain - Prescribed oxyCODONE-acetaminophen (Percocet) 5-325 MG tablet 02/02/25 Relevant Medications oxyCODONE-acetaminophen (Percocet) 5-325 MG tablet Abnormal computed tomography angiography of heart - CTA showing a focal abnormality of the distal thoracic aortic arch, with a focal outpouching of contrast extending through the intima which could potentially be acute. This finding could be explained by penetrating atherosclerotic ulcer or a saccular aneurysm with mural thrombus. - upcoming appointment with vascular specialist Other Visit Diagnoses Chest pain, unspecified type Dietary counseling Exercise counseling Class 2 severe obesity due to excess calories with serious comorbidity and body mass index (BMI) of37.0 to 37.9 in adult ([facility]) Allergies Allergen Reactions Ibuprofen Bleeding from bladder Naproxen Current Outpatient Medications Medication Instructions albuterol (Ventolin HFA) 108 (90 Base) MCG/ACT inhaler TAKE 2 PUFFS BY MOUTH EVERY 4 TO 6 HOURS NEEDED amLODIPine (Norvasc) 2.5 MG tablet 1 tablet, Daily aspirin (Aspirin Low Dose) 81 MG EC tablet TAKE 1 TABLET BY MOUTH EVERY DAY atorvastatin (Lipitor) 80 MG tablet TAKE 1 TABLET BY MOUTH EVERY DAY baclofen (Lioresal) 10 MG tablet TAKE 1 TABLET BY MOUTH TWICE A DAY Blood Pressure kit Use once a day Breo Ellipta 200-25 MCG/ACT aerosol powder INHALE 1 PUFF BY MOUTH DAILY *RINSE MOUTH AFTER EACH USE* clobetasol (Temovate) 0.05 % cream APPLY TO AFFECTED AREA TWICE A DAY TOPICALLY Diclofenac Sodium 1 % gel APPLY 2 GRAMS TO AFFECTED AREA TWICE A DAY ergocalciferol (Vitamin D-2) 1.25 MG (32954 UT) capsule 1 capsule, Oral, Weekly ezetimibe (ZETIA) 10 mg, Oral, Every morning fluticasone (Flonase) 50 MCG/ACT nasal spray 2 sprays, Each Nostril, Daily, Shake gently. Before first use, prime pump. After use, clean tip and replace cap. fluticasone (Flovent) 220 MCG/ACT inhaler 1 puff, Inhalation, Every 12 hours, Rinse mouth after using. gabapentin (NEURONTIN) 300 mg, Oral, 2 times daily Incruse Ellipta 62.5 MCG/ACT aerosol powder Daily isosorbide mononitrate ER (Imdur) 60 MG 24 hr tablet 1 tablet, Oral, Once Daily metoprolol tartrate (LOPRESSOR) 100 mg, Oral, 2 times daily with meals Multiple Vitamin (Daily-Maddi Multivitamin) tablet 1 tablet, Oral, Every morning nicotine polacrilex (Nicorette) 4 MG gum 1 each as needed Q-4-6h PRN for nicotine cravings nitroglycerin (Nitrostat) 0.[address] TABLET BY SUBLINGUAL ROUTE AT 1ST SIGN OF ATTACKMAY REPEAT EVERY 5 MINUTES UP TO 3 TABS IF NORELIEF SEEK MEDICAL HELP oxyCODONE-acetaminophen (Percocet) 5-325 MG tablet 1 tablet, Oral, Every 6 hours PRN pantoprazole (PROTONIX) 20 mg, Oral, Daily, Do not crush, chew, or split. Praluent 75 mg, Subcutaneous, Every 14 days Stool Softener 100 MG capsule 1 capsule, Daily tamsulosin (Flomax) 0.4 MG 24 hr capsule TAKE 1 CAPSULE BY MOUTH EVERY DAY 1/2 HOUR FOLLOWING THE SAME MEAL EACH DAY Follow-up: With PCP or sooner if any problem arises. Scribe Attestation: ILeonila, am serving as a scribe to document services personally performed by Sayda Hernandez MD, based on the patient's response to questions by provider and provides statements to me. documented in this encounter Miscellaneous Notes * Assessment & Plan Note - Sayda Hernandez MD - 02/04/2025 12:26 PM EDTAssociated Problem(s): Abnormal computed tomography angiography of heart - CTA showing a focal abnormality of the distal thoracic aortic arch, with a focal outpouching of contrast extending through the intima which could potentially be acute. This finding could be explained by penetrating atherosclerotic ulcer or a saccular aneurysm with mural thrombus. - upcoming appointment with vascular specialist * Assessment & Plan Note - Sayda Hernandez MD - 02/04/2025 12:21 PM EDTAssociated Problem(s): CAD (coronary artery disease) - s/p SAQIB to LCx and RCA, most recent PCI in 2021 - s/p > 1 year of DAPT, now on ASA only - continue statin, metoprolol, isosorbide, and amlodipine - continue following with Tx plan per PCP and commodities requirements analyst - continue working on lifestyle modifications, especially smoking cessation * Assessment & Plan Note - Leonila [...] mg daily as long as his BP is < 120. documented in this encounter Plan of Treatment Upcoming Encounters Date Type Department Care Team (Late st Contact Info) Description 03/13/2025 10:30 AM EDT Office Visit [address] [address] Name, MD Rafiq [address] [place] [phone] 05/13/2025 11:30 AM EDT Clinical Support [address] [address] Krysta Huston, RN documented as of this encounter Procedures Procedure Name Priority Date/Time Associated Diagnosis Comments CBC WITH AUTO DIFFERENTIAL Routine 02/02/2025 10:18 AM EDT Hypertension, unspecified type COMPREHENSIVE METABOLIC PANEL Routine 02/02/2025 10:18 AM EDT Hypertension, unspecified type documented in this encounter Results * (ABNORMAL) Comprehensive Metabolic Panel (02/02/2025 10:18 AM EDT) [facility] Sodium 142 135 - 145 mmol/L LABS Potassium 4.0 3.3 - 5.1 mmol/L LABS Chloride 114(H) 96 - 108 mmol/L LABS Carbon Dioxide 24 22 - 29 mmol/L LABS Anion Gap 8(L) 12 - 20 LABS Urea Nitrogen (BUN) 14 9 - 16 mg/dL LABS Creatinine, Serum 0.80 0.5 - 1.4 mg/dL LABS Estimated Glomerular Filt Rate >60 LABS Comment:Chronic Kidney Disea se: Estimated GFR < 60 mL/min/1.85b8Cwiaia Kidney Disease: Estimated GFR < 15 mL/min/1.73m2 Glucose 87 60 - 115 mg/dL LABS Calcium 8.8 8.4 - 10.2 mg/dL LABS Bilirubin, Total 0.8 0.0 - 1.0 mg/dL LABS Aspartate Amino Transferase 28 5 - 37 U/L LABS Alanine Aminotransferase 53(H) 0 - 40 U/L LABS Total Protein 7.0 6.5 - 8.0 g/dL LABS Albumin Level 3.8 3.5 - 5.0 g/dL LABS Alkaline Phosphatase 80 39 - 117 U/L LABS Blood Venous blood specimen / Unknown 02/02/2025 10:18 AM EDT 02/02/2025 11:19 AM EDT us Sayda Hernandez MD LAB BLOOD ORDERABLES Final Resul t LABS [address] [place] [address] [phone] * (ABNORMAL) CBC auto differential (02/02/2025 10:18 AM EDT) Pathologist [facility] White Blood Count 11.3(H) 4.8 - 10.8 X10*3/uL LABS Red Blood Count 4.43(L) 4.60 - 5.80 X10*6/uL LABS Hemoglobin 13.0(L) 14.0 - 18.0 g/dl LABS Hematocrit 40.1(L) 42.0 - 52.0 % LABS Mean Corpuscular Volume 90.5 80.0 - 98.0 fL LABS Mean Corpuscular Hemoglobin 29.3 27.0 - 33.0 pg LABS Mean Corpuscular HGB Conc 32.4 31.0 - 36.0 g/dl LABS Red Cell Distribution Width 13.8 11.0 - 16.0 % LABS Platelet Count 273 160 - 400 X10*3/uL LABS Mean Platelet Volume 11.1 9.4 - 12.4 fL LABS Neutrophils Percent Auto 63.5 45 - 73 % LABS Imm Gran Pct Auto 0.4 0.0 - 0.4 % LABS Lymphocytes Percent Auto 20.7 20 - 40 % LABS Monocytes Percent Auto 12.2(H) 2 - 11 % LABS Eosinophils Percent Auto 2.8 0 - 4 % LABS Basophils Percent Auto 0.4 0 - 2 % LABS NRBC Pct Auto 0.0 0.0 - 0.2 /100WBC LABS Neutrophils Absolute Auto 7.1 2.0 - 8.3 x10*3/uL LABS Imm Gran Abs Auto 0.05(H) 0.00 - 0.03 X10*3/uL LABS Lymphocytes Absolute Auto 2.3 1.2 - 4.9 X10*3/uL LABS Monocytes Absolute Auto 1.4(H) 0.1 - 1.2 X10*3/uL LABS Eosinophils Absolute Auto 0.3 0.0 - 0.4 X10*3/uL LABS Basophils Absolute Auto 0.1 0.0 - 0.2 X10*3/uL LABS NRBC Abs Auto 0.000 0.0 - 0.012 X10*3/uL LABS Blood Venous blood specimen / Unknown 02/02/2025 10:18 AM EDT 02/02/2025 11:19 AM EDT us Sayda Hernandez MD LAB BLOOD ORDERABLES Final Resul t LABS [address] [place] [address] [phone] documented in this encounter Visit Diagnoses Diagnosis Hypertension, unspecified type- Primary Chest pain, unspecified type Chronic low back pain, unspecified back pain laterality, unspecified whether sciatica present Dietary counseling Dietary surveillance and counseling Exercise counseling Class 2 severe obesity due to excess calories with serious comorbidity and body mass index (BMI) of 37.0 to 37.9 in adult ([facility]) Coronary artery disease involving tribal coronary artery of tribal heart with unstable angina pectoris ([facility]) Abnormal computed tomography angiography of heart documented in this encounter Additional Health Concerns Assessment Noted Time PHQ-9 Depression Total Score: 10 025 11:59 AM EDT documented as of this encounter Care Teams Supply Chain Analyst Relationship Specialty Start Date End Date Name, MD Rafiq [address] [place] [address] PCP - General Family Medicine 12/16/15 documented as of this encounter
--- OUTSIDE RECORDS SUMMARY | 2025-02-12 17:06 | XMS_ITS | Encounter Summary ---
Author Organization [employer] Address [address] 7t [place] [address] Care Team Providers Care Rum Processing Operator Name Role Phone Name, Rafiq JENKINS Primary Care Provider [phone] Reason for Visit * Reason Comments Med Refill Encounter Details Date Type Department Care Team ([facility] st Contact Info) Description 02/01/2025 Refill [facility] MEDICINE [address] [place], [place] [phone] Name, MD Rafiq [address] [place], [place] [phone] Hypercholesterolemia Social History Tobacco Use Types Packs/Day [...] Description 03/13/2025 10:30 AM EDT Office Visit [facility] MEDICINE [address] [place] [phone] NameRafiq MD [address] [place] [phone] 05/13/2025 11:30 AM EDT Clinical Support [address] [address] Krysta Huston, LUCAS documented as of this encounter Visit Diagnoses Diagnosis Hypercholesterolemia Pure hypercholesterolemia documented in this encounter Additional Health Concerns Assessment Noted Time PHQ-9 Depression Total Score: 0 02/05/20 24 2:30 PM EDT documented as of this encounter Care Teams Rum Processing Operator Relationship Specialty Start Date End Date Rafiq Grace MD [address] [place] [phone] PCP - General Family Medicine 12/16/15 documented as of this encounter
--- OUTSIDE RECORDS SUMMARY | 2025-02-12 17:06 | XMS_ITS | Encounter Summary ---
Author Organization [employer] Address [address] [place] [address] Care Team Providers Care Crystal Attacher Name Role Phone Name, Rafiq JENKINS Primary Care Provider [phone] Reason for Visit * Reason Comments Med Refill Encounter Details Date Type Department Care Team ([facility] st Contact Info) Description 01/24/2025 Refill [facility] MEDICINE [address] [place] [address] Name, MD Rafiq [address] [place], [place] [phone] Mild intermittent asthma, unspecified whether complicated Social [...] Description 03/13/2025 10:30 AM EDT Office Visit [address] [address] NameRafiq MD [address] [place] [phone] 05/13/2025 11:30 AM EDT Clinical Support [address] [address] Krysta Huston, RN documented as of this encounter Visit Diagnoses Diagnosis Mild intermittent asthma, unspecified whether complicated documented in this encounter Additional Health Concerns Assessment Noted Time PHQ-9 Depression Total Score: 0 02/05/20 24 2:30 PM EDT documented as of this encounter Care Teams Crystal Attacher Relationship Specialty Start Date End Date Rafiq Grace MD [address] [place] [phone] PCP - General Family Medicine 12/16/15 documented as of this encounter
--- OUTSIDE RECORDS SUMMARY | 2025-02-12 17:06 | XMS_ITS | Encounter Summary ---
Author Organization [facility] Address [address] [place] [address] 7t [place] [address] Care Team Providers Care Special Service Officer Name Role Phone NameRafiq MD Primary Care Provider [phone] Jairon Rose RN Unavailable [phone] Reason for Visit * Reason Comments Med Refill Encounter Details Date Type Department Care Team ([facility] Contact Info) Description 08/03/2023 Refill [facility] MEDICINE [address] [place] [address] [phone] Rafiq Grace MD [address] [place] [phone] Social History Tobacco Use Types Packs/Day Years [...] Upcoming Encounters Date Type Department Care Team ([facility] Contact Info) Description 03/13/2025 10:30 AM EDT Office Visit [facility] MEDICINE [address] [place] [phone] Rafiq Grace MD [address] [place] [phone] 05/13/2025 11:30 AM EDT Clinical Support [facility] MEDICINE [address] [place], [place] [phone] Krysta Huston, RN documented as of this encounter Visit Diagnoses Not on filedocumented in this encounter Care Teams Special Service Officer Relationship Specialty Start Date End Date Name, MD Rafiq [address] [place] [address] PCP - General Family Medicine 12/16/15 Jairon Rose, LUCAS [address] [place] [phone] Cocoa Bean CleanerAgricultural Chemist 02/05/25 documented as of this encounter
--- OUTSIDE RECORDS SUMMARY | 2025-02-12 17:06 | XMS_ITS | Encounter Summary ---
Author Organization [employer] [facility] Address [address] [place] [address] 7t [place] [address] Care Team Providers Care Loom Stop Checker Name Role Phone Name, Rafiq JENKINS Primary Care Provider [phone] Jairon Rose RN Unavailable Reason for Visit * Reason Comments Med Refill Encounter Details Date Type Department Care Team (Late Contact Info) Description 03/13/2023 Refill [facility] MEDICINE [address] [place] [address] Sabine Boyd MD [address] [place] [address] Social History Tobacco Use Types Packs/Day Years [...] Department Care Team (Late Contact Info) Description 03/13/2025 10:30 AM EDT Office Visit [address] [address] Name, [place] [address] 05/13/2025 11:30 AM EDT Clinical Support [address] [address] Krysta Huston, RN documented as of this encounter Visit Diagnoses Not on filedocumented in this encounter Care Teams Loom Stop Checker Relationship Specialty Start Date End Date Name, MD Rafiq [address] [place] [address] PCP - General Family Medicine 12/16/15 Jairon Rose, LUCAS [address] [place] [address] Legal ConsultantSlps 02/05/25 documented as of this encounter
--- OUTSIDE RECORDS SUMMARY | 2025-02-12 17:06 | XMS_ITS | Clinical Summary ---
Author Organization [facility] [employer] Address [address] [place] [address] 7[address] [place] [address] Care Team Providers Care Driver Engineer Name Role Phone Name, Rafiq JENKINS Primary Care Provider [phone] Jairon Rose RN Unavailable [phone] Allergies Active Allergy Reactions Criticality Noted Date Comments Ibuprofen 07/21/2015 Bleeding from bladder Naproxen 01/17/2016 Medications Diclofenac Sodium 1 % gel APPLY 2 GRAMS TO AFFECTED AREA TWICE A DAY 08/28/20 22 Active ergocalciferol (Vitamin D-2) 1.25 MG (61817 UT) capsule Take 1 capsule by mouth [...] replace cap. 16 g 2 02/08/20 24 Active clobetasol (Temovate) 0.05 % cream APPLY [...] MG EC tabletIndicatio ns:Coronary artery disease involving [place] coronary artery of [place] heart without angina pectoris TAKE 1 TABLET [...] days. 112 tablet 02/03/20 25 025 Active clopidogrel (Plavix) 75 MG tablet Take 1 tablet by mouth Once daily. 07/14/20 22 025 Discontinued(M ed list cleanup (will not trigger notification to Pharmacy)) metoprolol tartrate (Lopressor) 100 MG tablet Take 1 tablet by mouth with breakfast and with evening meal. 09/23/20 22 025 Discontinued(R eorder (will not trigger notification to Pharmacy)) ezetimibe (Zetia) 10 MG tabletIndicatio ns:Hypercholest erolemia Take 1 tablet (10 mg) by mouth in the morning. 30 tablet 11 02/08/20 24 025 Discontinued albuterol (Ventolin HFA) 108 (90 Base) MCG/ACT [...] Active Problems Problem Noted Date Diagnosed Date prison (current) use of opiate analgesic 01/24 Abnormal computed tomography angiography of hear t 02/04/2025 Assessment & Plan (02/04/2025 12:26 PM EDT): - CTA showing a focal abnormality of the distal thoracic aortic arch, with a focal outpouching of contrast extending through the intima which could potentially be acute. This finding could be explained by penetrating atherosclerotic ulcer or a saccular aneurysm with mural thrombus. - upcoming appointment with vascular specialist Bilateral carpal tunnel syndrome 10/15/2024 ASHLEE (obstructive [...] with drug-eluting stent with intravascular ultrasound guidance Assessment & Plan (02/04/2025 12:21 PM EDT): - s/p SAQIB to LCx and RCA, most recent PCI in 2021 - s/p > 1 year of DAPT, now on ASA only - continue statin, metoprolol, isosorbide, and amlodipine - continue following with Tx plan per PCP and sand conditioner - continue working on lifestyle modifications, especially smoking cessation Umbilical hernia without obstruction and without gangrene 04/14/2016 Tobacco use disorder, continuous 01/17/2016 HLD (hyperlipidemia) 01/17/2016 HTN (hypertension) 01/17/2016 Assessment & Plan (02/04/2025 12:22 PM EDT): - Pt is currently prescribed Metoprolol, 100 mg twice daily and Amlodipine, 5mg once daily. Pt is still taking 2.5 mg daily and his BP is at goal. Pt was advised to monitor his home BP and keep taking 2.5 mg daily as long as his BP is < 120. 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 02/11/2025 Telephone [facility] [place] [address] Krysta Huston RN TRANSMISSION SPECIALIST Renewal today 02/11/2025 Travel 02/09/2025 Telephone [facility] [place] [address] Rafiq Grace MD Care Management (C3) 02/06/2025 Telephone [facility] [place] [address] Rafiq Grace MD Care Management (C3CM- initial assessment/enrollment) 02/06/2025 Population Health Risk Score [facility] (C3) Department [address] [place] [phone] Provider, Population Health Generic 02/04/2025 Patient Outreach [facility] [place] [address] Rafiq Grace MD Care Coordination (C3 -[facility] Rosaura Arellanoz telephone call outreach) 02/03/2025 Telephone [facility] [place] [address] Rafiq Grace MD Durable Medical Equipment (Pulse oxymeter) 02/03/2025 Orders Only [facility] External Provider, [facility] 02/02/2025 9:30 AM EDT Office Visit [facility] [place] [address] Sayda Hernandez MD Hypertension, unspecified type (Primary Dx); Chest pain, unspecified type; Chronic low back pain, unspecified back pain laterality, unspecified whether sciatica present; Dietary counseling; Exercise counseling; Class 2 severe obesity due to excess calories with serious comorbidity and body mass index (BMI) of 37.0 to 37.9 in adult ([facility]); Coronary artery disease involving [place] coronary artery of [place] heart with unstable angina pectoris ([facility]); Abnormal computed tomography angiography of heart 02/02/2025 Travel 02/01/2025 Refill [facility] [place] [address] Rafiq Grace MD Hypercholesterolemia 01/30/2025 Patient Outreach [facility] [address] [place] [address] Rafiq Grace MD Care Coordination 01/30/2025 Patient Outreach [facility] MEDICINE [address] [place] [address] Rafiq Grace MD Care Coordination ([address] telephone call outreach) 01/29/2025 Telephone [facility] MEDICINE [address] [place] [address] Lesli Antoine MA chartprep 01/26/2025 Patient Outreach [facility] MEDICINE [address] [place] [address] Rafiq Grace MD Transition Of Care (Tcm) (HDF- scheduled and SDOH screening positive and Tobacco screening positive) 01/24/2025 Refill [facility] MEDICINE [address] [place] [address] Rafiq Grace MD Mild intermittent asthma, unspecified whether complicated 01/22/2025 Patient Outreach [facility] MEDICINE [address] [place] [address] Rafiq Grace MD Care Coordination ([address] telephone call outreach) 01/22/2025 Telephone [facility] MEDICINE [address] [place] [address] Rafiq Grace MD Care Management ([facility]- chart review) 01/20/2025 Telephone [facility] MEDICINE [address] [place] [address] Rafiq Grace MD FMLA (I called the patient, regarding a FMLA application from [employer]. I informed him that it has been faxed 3 times, and it is not going through. 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 ) 01/05/2025 Refill [facility] [place] [address] Rafiq Grace MD Chronic low back pain, unspecified back pain laterality, unspecified whether sciatica present 12/31/2024 Refill [facility] [address] [place] [address] Latosha Car MD Mild intermittent asthma, unspecified whether complicated 12/25/2024 Orders Only [facility] External Provider, [facility] 12/17/2024 11:30 AM EST Clinical Support [facility]ICINE [address] [place] [address] Krysta Huston RN Chronic pain syndrome (Primary Dx) 12/17/2024 Travel 12/17/[address] [address] Krysta Huston RN Recommend TRANSMISSION SPECIALIST Tier 2 12/05/[address] [address] Rafiq Grace MD Mild intermittent asthma, unspecified whether complicated 12/05/[address] [address] Rafiq Grace MD Chronic low back pain, unspecified back pain laterality, unspecified whether sciatica present 12/04/[address] [address] Rafiq Grace MD No Show 11/18/[address] [address] Rafiq Grace MD CALLBACK REQUESTED 11/18/[address] [address] Rafiq Grace MD FMLA (I called the patient regarding an application for FMLA, from [employer]. I reached his voicemail, and left a message asking him to return my call at ext [phone].) from Last 3 Months Immunizations Name Administration Dates Next Due HepB-CpG 05/15/2023,04/11/2023 Influenza injectable quadriv alent IIV4 with preservative 11/14/2019,08/28/2016 Influenza injectable quadriv alent preservative free 09/05/2023,08/18/2022,09/03/2017 Influenza, IIV3, injectable 09/10/2015,1 ,08/12/2013,08/20,11/02/2011,04/09/2010,09/07/2008 Influenza, seasonal, injecta ble, preservative free 08/11/2024 Novel [id number], preservative-free 01/26/2010 Pneumococcal Conjugate PCV 20 04/11/2023 [...] Description 03/13/2025 10:30 AM EDT Office Visit [facility] MEDICINE [address] [place] [address] Name, MD Rafiq [address] [place] [address] 05/13/2025 11:30 AM EDT Clinical Support [address] [address] Krysta Huston, RN Health Maintenance Due Date Last Done Comments [...] Depression Screening 02/02/2026 02/02/2025, 02/03/20 Tobacco Screening 02/04/2026 02/04/2025 Lipid Panel 10/17/2029 10/17/2024, 01/24, 02/21/2023, Additional [...] Comments POCT FRANCI-14 URINE DRUG SCREEN Routine 02/11/2025 11:36 AM EDT Chronic bilateral low back pain with left-sided sciatica XR CHEST 2 VIEWS Routine 02/03/2025 10:4 [...] 10:27 AM EST Coronary artery disease involving [place] coronary artery of [place] heart with unstable angina pectoris (CMS/HCC) HEPATITIS [...] Results * POCT FRANCI-14 Urine Drug Screen (02/11/2025 11:36 AM EDT) Only the most recent of2 resultswithin the time period is included. Oxycodone Screen, Urine Positive Urine Urine specimen obtained by clean catch procedure / Unknown 02/11/2025 11:36 AM EDT Narrative Krysta Huston RN - 02/11/2025 11:36 AM EDT UTOX cup Lot#[id number] Exp. 07/15/26 Internal Pass Control us Rafiq Name MD POINT OF CARE TEST ENTER/EDIT OR DERABLES Final Result * XR Chest 2 Views (02/03/2025 10:42 AM EDT) Anatomical Region Laterality Modality Chest Radiographic Nova ging 02/03/2025 10:4 2 AM EDT Narrative 02/03/2025 11:00 AM EDT ? [facility] ?[address] ?[place] [address] ?XRay Report ? Signed ? Patient: Deidre Colon,[place] ?MR#: M ?? [id number] ? : 1965 ?Acct:[id number] ? Age/Sex: 59 / M ?ADM Date: 02/03/25 ? Loc: HO.XRAY ? Attending Dr: Lisa Middleton TOY ELECTRIC TRAIN REPAIRER ? Ordering Physician: Lisa Middleton NP ?? Date of Service: 02/03/25 ?? Procedure(s): XR chest 2V ?? Accession Number(s): [id number] ? cc: Rafiq Grace MD; Lisa Middleton NP ? EXAMINATION: ??XR CHEST [...] DD/ 1042 ? TD/TT: 02/03/25 1053 ? Oil Well Services Supervisor: ? Procedure Note Donpebbles, Image - 02/03/[address] [address] XRay Report Signed Patient: Erick Bejarano#: M [id number] : 1965Acct:[id number] Age/Sex: 59 / MADM Date: 02/03/25 Loc: HO.XRAY Attending Dr: Lisa Middleton NP Ordering Physician: Lisa Middleton NP Date of Service: 02/03/25 Procedure(s): XR chest 2V Accession Number(s): [id number] cc: Name,Rafiq JENKINS; Lisa Middleton NP EXAMINATION: [...] 02/03/25 1057 DD/ 1042 TD/TT: 02/03/25 1053 Oil Well Services Supervisor: [facility] External Provider IMG XR PROCEDURES Final Result * (ABNORMAL) CBC auto differential (02/02/2025 10:18 AM EDT) White Blood Count 11.3(H) 4.8 - 10.8 X10*3/uL [facility] Red Blood Count 4.43(L) 4.60 - 5.80 X10*6/uL [facility] Hemoglobin 13.0(L) 14.0 - 18.0 g/dl [facility] Hematocrit 40.1(L) 42.0 - 52.0 % [facility] Mean Corpuscular Volume 90.5 80.0 - 98.0 fL [facility] Mean Corpuscular Hemoglobin 29.3 27.0 - 33.0 pg [facility] Mean Corpuscular HGB Conc 32.4 31.0 - 36.0 g/dl [facility] Red Cell Distribution Width 13.8 11.0 - 16.0 % [facility] Platelet Count 273 160 - 400 X10*3/uL [facility] Mean Platelet Volume 11.1 9.4 - 12.4 fL [facility] Neutrophils Percent Auto 63.5 45 - 73 % [facility] Imm Gran Pct Auto 0.4 0.0 - 0.4 % [facility] Lymphocytes Percent Auto 20.7 20 - 40 % [facility] Monocytes Percent Auto 12.2(H) 2 - 11 % [facility] Eosinophils Percent Auto 2.8 0 - 4 % [facility] Basophils Percent Auto 0.4 0 - 2 % [facility] NRBC Pct Auto 0.0 0.0 - 0.2 /100WBC [facility] Neutrophils Absolute Auto 7.1 2.0 - 8.3 x10*3/uL [facility] Imm Gran Abs Auto 0.05(H) 0.00 - 0.03 X10*3/uL [facility] Lymphocytes Absolute Auto 2.3 1.2 - 4.9 X10*3/uL [facility] Monocytes Absolute Auto 1.4(H) 0.1 - 1.2 X10*3/uL [facility] Eosinophils Absolute Auto 0.3 0.0 - 0.4 X10*3/uL [facility] Basophils Absolute Auto 0.1 0.0 - 0.2 X10*3/uL [facility] NRBC Abs Auto 0.000 0.0 - 0.012 X10*3/uL [facility] Blood Venous blood specimen / Unknown 02/02/2025 10:18 AM EDT 02/02/2025 11:19 AM EDT us Sayda Hernandez MD LAB BLOOD ORDERABLES Final Resul t [facility] [address] [place] [address] [phone] * (ABNORMAL) Comprehensive Metabolic Panel (02/02/2025 10:18 AM EDT) Sodium 142 135 - 145 mmol/L [facility] Potassium 4.0 3.3 - 5.1 mmol/L [facility] Chloride 114(H) 96 - 108 mmol/L [facility] Carbon Dioxide 24 22 - 29 mmol/L [facility] Anion Gap 8(L) 12 - 20 [facility] Urea Nitrogen (BUN) 14 9 - 16 mg/dL [facility] Creatinine, Serum 0.80 0.5 - 1.4 mg/dL [facility] Estimated Glomerular Filt Rate >60 [facility] Comment:Chronic Kidney Disea se: Estimated GFR < 60 mL/min/1.85f1Ecqxye Kidney Disease: Estimated GFR < 15 mL/min/1.73m2 Glucose 87 60 - 115 mg/dL [facility] Calcium 8.8 8.4 - 10.2 mg/dL [facility] Bilirubin, Total 0.8 0.0 - 1.0 mg/dL [facility] Aspartate Amino Transferase 28 5 - 37 U/L [facility] Alanine Aminotransferase 53(H) 0 - 40 U/L [facility] Total Protein 7.0 6.5 - 8.0 g/dL [facility] Albumin Level 3.8 3.5 - 5.0 g/dL [facility] Alkaline Phosphatase 80 39 - 117 U/L [facility] Blood Venous blood specimen / Unknown 02/02/2025 10:18 AM EDT 02/02/2025 11:19 AM EDT us Sayda Hernandez MD LAB BLOOD ORDERABLES Final Resul t [facility] [address] [place] [address] [phone] * MR Knee w/o Contrast Left (12/25/2024 7:05 PM EST) Anatomical Region Laterality Modality Magnetic Resonan ce 12/25/2024 7:05 PM EST Narrative 12/26/2024 8:17 AM EST ? [facility] ?[address] ?[place] [address] ? Magnetic Resonance Report ? Signed ? Patient: Deidre Colon,[place] ?MR#: M ?? [id number] ? : 1965 ?Acct:[id number] ? Age/Sex: 59 / M ?ADM Date: 12/25/24 ? Loc: HO.MRI ? Attending Dr: Kristan PETTY ? Ordering Physician: Kristan Oconnell ?? Date of Service: 12/25/24 ?? Procedure(s): MR knee LT wo con ?? Accession Number(s): [id number] ? cc: Kristan Oconnell; Name,Rafiq JENKINS ? [...] ?12/26/24 0814 ? DD/ 1905 ? TD/TT: 12/25/24 1925 ? Oil Well Services Supervisor: ? Procedure Note Navid, Image - 12/26/2024 [place] [address] Magnetic Resonance Report Signed Patient: Erick Bejarano#: M [id number] : 1965Acct:[id number] Age/Sex: 59 / MADM Date: 12/25/24 Loc: HO.MRI Attending Dr: Kristan PETTY Ordering Physician: Kristan Oconnell Date of Service: 12/25/24 Procedure(s): MR knee LT wo con Accession Number(s): [id number] cc: Kristan Oconnell; Name,Rafiq JENKINS EXAMINATION: MRI [...] Gavin MD in OV> 12/26/24 0814 DD/ 190 TD/TT: 12/25/241924 Oil Well Services Supervisor: [facility] External Provider IMG MRI PROCEDURES Final Result * FL Esophagus Barium Swallow w/Air (11/27/2024 8:00 AM EST) Anatomical Region Laterality Modality Head, Neck Radiographic Nova ging 11/27/2024 8:00 AM EST Narrative 11/27/2024 4:09 PM EST ? [facility] ?[address] ?[place] [address] ? Fluoroscopy Report ? Signed ? Patient: Deidre Colon,[place] ?MR#: M ?? [id number] ? : 1965 ?Acct:[id number] ? Age/Sex: 59 / M ?ADM Date: 11/27/24 ? Loc: HO.XRAY ? Attending Dr: Rafiq Grace MD ? Ordering Physician: Rafiq Grace MD ?? Date of Service: 11/27/24 ?? Procedure(s): FL barium swallow with air ?? Accession Number(s): [id number] ? cc: Rafiq Grace MD ? EXAMINATION: [...] ? Signed By: ?<Electronically signed by Juma Erzao in OV> ? 11/27/24 1607 ?<Electronically signed by Omar Rosen MD in OV> ? 11/27/24 1609 ? DD/ 0800 ? TD/TT: 11/27/24824 ? Oil Well Services Supervisor: ? Procedure Note Navid, Halima - 11/27/2024 [place] [address] Fluoroscopy Report Signed Patient: Erick Bejarano#: M [id number] : 1965Acct:[id number] Age/Sex: 59 / MADM Date: 11/27/24 Loc: HO.MARIOAY Attending Dr: Rafiq Grace MD Ordering Physician: Rafiq Grace MD Date of Service: 11/27/24 Procedure(s): FL barium swallow with air Accession Number(s): [id number] cc: Rafiq Grace MD EXAMINATION: XR FLUOROSCOPY [...] by: Omar [place] MD 11/27/2024 04:07 PM [facility] Dictated By: Juma Erazo Signed By: <Electronically signed by Juma Erazo in OV> 11/27/24 1606 <Electronically signed by Omar [place] MD in OV> 11/27/24 1609 DD/ 0800 TD/TT: 11/27/24 0825 Oil Well Services Supervisor: us Rafiq Name MD IMG FLUOROSCOPY PROCEDURES Edite d Result - Final * (ABNORMAL) Lipid Panel, Standard (10/17/2024 10:27 AM EST) Triglycerides 164(H) <150 mg/dL [facility] Comment:Desirable Triglyceri de: less than 150 mg/dLBorderline High Triglyceride 150-199 mg/dLHigh Triglyceride: 200-499 mg/dLVery High Triglyceride: greater than or equal to 5OO mg/dL Cholesterol 214(H) <200 mg/dL [facility] Comment:Desirable Cholestero l: less than 200 mg/dLBorderline High Cholesterol: 200-239 mg/dLHigh Cholesterol: greater than 239 mg/dL LDL Cholesterol Calculated 151(H) <100 mg/dL [facility] Comment:Desirable LDL: less than 100 mg/dLNear Optimal/Above Optimal LDL: 110- 129 mg/dLBorderline High LDL: 130-159 mg/dLHigh LDL: 160-189 mg/dLVery High LDL: greater than or equal to 190 mg/dL HDL Cholesterol 31(L) >40 mg/dL [facility] Comment:Desirable HDL: great er than 40 mg/dL Note: This HDL assay may give artificially low results in patients with liver disease. Blood Venous blood specimen / Unknown 10/17/2024 10:27 AM EST 10/17/2024 11:05 AM EST us Rafiq Grace MD LAB BLOOD ORDERABLES Final Resul t [facility] [address] [place], [place] [phone] * Hepatitis C Ab (02/06/2024 12:22 PM EDT) Hepatitis C Antibody Nonreactive Nonreactive [facility] Comment:Antibodies to HCV no t detected; does not exclude early acuteHCV infection. Blood Venous blood specimen / Unknown 02/06/2024 12:22 PM EDT 02/06/2024 1:11 PM EDT Rafiq Grace MD LAB BLOOD ORDERABLES Final Resul t [facility] [address] [place] [address] [phone] * POCT HGB A1C (12/03/2023 4:16 PM EST) Pathologist [facility] Hemoglobin A1C 5.6 4.0 - 6.0 % Other 12/03/2023 4:16 PM EST Rafiq Grace MD POINT OF CARE TEST ENTER/EDIT OR DERABLES Final Result * (ABNORMAL) Lung Cancer Screning (07/03/2023) Pathologist [facility] Lung CT LUNGRADS 0(A) LUNGRADS 1, LUNGRADS 2 Anatomical Region Laterality Modality Other Lisa Middleton HEALTH MAINTENANCE Final Resul t * Colonoscopy (12/24/2020 12:59 PM EST) Pathologist [facility] Colonoscopy Normal Normal Narrative Danielle Orellana - 12/24/2020 12:59 PM EST Recommended 5 year follow up Historical Provider HEALTH MAINTENANCE Final Result from Last 3 Months or Most Recently Relevant to Health Maintenance Insurance [facility] C3 [place] STAND ADULT DENTAL - HSN FULL (MEDICAID) DENTAL - [employer] DENTAL [address] [place] [address] [place] [id number] [place] [phone] Care Teams Driver Engineer Relationship Specialty Start Date End Date Name, MD Rafiq [address] [place] [address] PCP - General Family Medicine 12/16/15 Jairon Rose, RN [address] [place] [address] Line Repairer TowerLegal Contracts Specialist 02/05/25
--- OUTSIDE RECORDS SUMMARY | 2025-02-12 17:06 | XMS_ITS | Encounter Summary ---
Author Organization [employer] Address [address] [place] [address] Care Team Providers Care Patient Intake Coordinator Name Role Phone Name, Rafiq JENKINS Primary Care Provider [phone] Reason for Visit * Reason Onset Date Comments FMLA 01/20/2025 I called the pat ient, regarding a FMLA application from [employer]. I informed him that it has been faxed 3 times, and it is not going through. 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 Encounter Details Date Type Department Care Team ([facility] st Contact Info) Description 01/20/2025 Telephone [facility] MEDICINE [address] [place] [address] Name, MD Rafiq [address] [place] [address] FMLA (I called the patient, regarding a FMLA application from [employer]. I informed him that it has been faxed 3 times, and it is not going through. 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 I informed him that it has been faxed 3 times, and it is not going through. 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 documented in this encounter Plan of Treatment Upcoming Encounters Date Type Department Care Team (Late st Contact Info) Description 03/13/2025 10:30 AM EDT Office Visit [facility] MEDICINE [address] [place] [phone] Name, MD Rafiq [address] [place] [address] 05/13/2025 11:30 AM EDT Clinical Support [facility] [address] [place] [address] Krysta Huston RN documented as of this encounter Visit Diagnoses Not on filedocumented in this encounter Additional Health Concerns Assessment Noted Time PHQ-9 Depression Total Score: 0 02/05/20 24 2:30 PM EDT documented as of this encounter Care Teams Patient Intake Coordinator Relationship Specialty Start Date End Date Name, MD Rafiq [address] [place] [address] PCP - General Family Medicine 12/16/15 documented as of this encounter
--- OUTSIDE RECORDS SUMMARY | 2025-02-12 17:06 | XMS_ITS | Encounter Summary ---
Author Organization [employer] [facility] Address [address] [facility] 7t [place] [address] Care Team Providers Care Senior Network Systems Engineer Name Role Phone Name, Rafiq JENKINS Primary Care Provider [phone] Jairon Rose RN Unavailable [phone] Reason for Visit * Reason Comments Med Refill Encounter Details Date Type Department Care Team ([facility] st Contact Info) Description 06/03/2023 Refill [facility] MEDICINE 230 [place] [address] Sabine Boyd MD 230 [place] [address] Tobacco use disorder, continuous Social History Tobacco [...] Description 03/13/2025 10:30 AM EDT Office Visit [address] [address] Name, MD Rafiq [address] [place] [address] 05/13/2025 11:30 AM EDT Clinical Support [address] [address] Krysta Huston, RN documented as of this encounter Visit Diagnoses Diagnosis Tobacco use disorder, continuous Tobacco use disorder documented in this encounter Care Teams Senior Network Systems Engineer Relationship Specialty Start Date End Date Name, MD Rafiq [address] [place] [address] PCP - General Family Medicine 12/16/15 Jairon Rose, LUCAS [address] [place] [address] Magician/IllusionistInsurance Investigator 02/05/25 documented as of this encounter
--- OUTSIDE RECORDS SUMMARY | 2025-02-12 17:06 | XMS_ITS | Encounter Summary ---
Author Organization [employer] Address [address] [facility] 7t [place] [address] Care Team Providers Care Non Destructive Evaluation Manager Name Role Phone Name, Rafiq JENKINS Primary Care Provider [phone] Reason for Visit * Reason Comments Care Coordination Encounter Details Date Type Department Care Team ([facility] st Contact Info) Description 01/30/2025 Patient Outreach [facility] MEDICINE 230 [place], [place] [phone] Name, MD Rafiq [address] [place] [address] Care Coordination Social History Tobacco Use Types [...] outbound call to patient introducing herself from [facility] CM Department, in regards to offering CM-CHW program services. Patient's name and was confirmed. Patient agrees to participate in CHW- program for SDOH needs. SDOH screening completed: 01/30/25, CHW spoke to patient he needs help with transportation to the [facility]. CHW reinforced direct contact information for any additional questions or concerns and extended clinic hourson Mondays and Wednesdays, and Walk-In Urgent Care Located in [facility]. Patient provided with after-hours line for [facility], , which offer night time triage service and option to transfer to advisor consultant provider if needed. Patient verbalizes understanding, and able to repeat back to song writer. documented in this encounter Plan of Treatment Upcoming Encounters Date Type Department Care Team ([facility] st Contact Info) Description 03/13/2025 10:30 AM EDT Office Visit [facility] MEDICINE [address] [place] [address] Name, MD Rafiq [address] [place] [address] 05/13/2025 11:30 AM EDT Clinical Support [facility] MEDICINE [address] [facility] [place] [address] Krysta Huston, RN documented as of this encounter Visit Diagnoses Not on filedocumented in this encounter Additional Health Concerns Assessment Noted Time PHQ-9 Depression Total Score: 0 02/05/20 24 2:30 PM EDT documented as of this encounter Care Teams Non Destructive Evaluation Manager Relationship Specialty Start Date End Date Name, MD Rafiq [address] [facility] [place] [address] PCP - General Family Medicine 12/16/15 documented as of this encounter
--- OUTSIDE RECORDS SUMMARY | 2025-02-12 17:06 | XMS_ITS | Encounter Summary ---
Author Organization [employer] [facility] Address [address] [facility] 7t [place] [address] Care Team Providers Care Literary Writer Name Role Phone Name, Rafiq JENKINS Primary Care Provider [phone] Jairon Rose RN Unavailable [phone] Reason for Visit * Reason Comments Med Refill Encounter Details Date Type Department Care Team ([facility] st Contact Info) Description 06/07/2023 Refill [facility] MEDICINE 230 [place], [place] [phone] Name, MD Rafiq 230 [place] [address] Tobacco use disorder, continuous Social History Tobacco [...] Description 03/13/2025 10:30 AM EDT Office Visit [address] [address] Name, MD Rafiq [address] [place] [address] 05/13/2025 11:30 AM EDT Clinical Support [address] [address] Krysta Huston, LUCAS documented as of this encounter Visit Diagnoses Diagnosis Tobacco use disorder, continuous Tobacco use disorder documented in this encounter Care Teams Literary Writer Relationship Specialty Start Date End Date Name, MD Rafiq [address] [place] [address] PCP - General Family Medicine 12/16/15 Jairon Rose, LUCAS [address] [place] [address] Macroeconomics ProfessorSecurities Attorney 02/05/25 documented as of this encounter
--- OUTSIDE RECORDS SUMMARY | 2025-02-12 17:06 | XMS_ITS | Encounter Summary ---
Author Organization [employer] [facility] Address [address] [place] [address] 7t [place] [address] Care Team Providers Care Boat Canvas Maker Installer Name Role Phone Name, Rafiq JENKINS Primary Care Provider [phone] Jairon Rose RN Unavailable [phone] Encounter Details Date Type Department Care Team ([facility] Contact Info) Description 12/29/2022 Abstract [facility] ADULT DENTAL 230 [place] [address] Dario Lynch DDS 230 [place] [address] Social History Tobacco Use Types Packs/Day Years [...] Upcoming Encounters Date Type Department Care Team ([facility] Contact Info) Description 03/13/2025 10:30 AM EDT Office Visit [facility] MEDICINE 230 [place] [address] Name, MD Rafiq [address] [place] [address] 05/13/2025 11:30 AM EDT Clinical Support [facility] MEDICINE [address] [place] [phone] Krysta Huston, RN documented as of this encounter Visit Diagnoses Not on filedocumented in this encounter Care Teams Boat Canvas Maker Installer Relationship Specialty Start Date End Date Name, MD Rafiq [address] [place] [address] PCP - General Family Medicine 12/16/15 Jairon Rose, LUCAS [address] [place] [address] Campus Security OfficerTicket Chopper Assembler 02/05/25 documented as of this encounter
--- OUTSIDE RECORDS SUMMARY | 2025-02-12 17:06 | XMS_ITS | Encounter Summary ---
Author Organization [employer] Address [address] [facility] 7t [place] [address] Care Team Providers Care Construction Checker Name Role Phone Name, Rafiq JENKINS Primary Care Provider [phone] Reason for Visit * Reason Comments Transition Of Care (Tcm) HDF- scheduled and SDOH screening positive and Tobacco screening positive Encounter Details Date Type Department Care Team ([facility] st Contact Info) Description 01/26/2025 Patient Outreach [facility] MEDICINE 230 [place], [place] [phone] Name, MD Rafiq 230 [place] [address] Transition Of Care (Tcm) (HDF- scheduled and [...] 01/26/25 0904 Hospital Discharges and Admission for [facility] Type of Visit Hospital Admission Date of Admission/Visit 01/22/25 Date of Discharge 01/25/25 Facility [facility] Diagnosis Aortic aneurysm of unspecified site, [...] Wednesdays, and Walk-In Urgent Care Located in [facility] of [facility].Patient provided with after-hours line for [facility], , which offer night time triage serviceand option to transfer to merchandising execution manager provider if needed. CC scanned discharge summary [...] 10:30 AM EDT Office Visit [facility] MEDICINE [address] [place] [address] Rafiq Grace MD [address] [place] [address] 05/13/2025 11:30 AM EDT Clinical Support [facility] MEDICINE [address] [place] [address] Krysta Huston, RN documented as of this encounter Visit Diagnoses Not on filedocumented in this encounter Additional Health Concerns Assessment Noted Time PHQ-9 Depression Total Score: 0 02/05/20 24 2:30 PM EDT documented as of this encounter Care Teams Construction Checker Relationship Specialty Start Date End Date Rafiq Grace MD [address] [place] [address] PCP - General Family Medicine 12/16/15 documented as of this encounter
--- OUTSIDE RECORDS SUMMARY | 2025-02-12 17:06 | XMS_ITS | Encounter Summary ---
Author Organization [employer] Address 75 [facility] 7t [place] [address] Care Team Providers Care Tobacco Sizer Name Role Phone Name, Rafiq JENKINS Primary Care Provider [phone] Reason for Visit * Reason Comments Care Coordination [facility] hand telephone call outreach Encounter Details Date Type Department Care Team (Latest Contact Info) Description 01/30/2025 Patient Outreach [facility] MEDICINE 230 [place], [place] [phone] Name, MD Rafiq 230 [place] [address] Care Coordination (C3 [facility]ST[facility] Miranda telephone call [...] outbound call to patient introducing herself from [facility] CM Department, in regards to offering services. Patient's name and was confirmed. Patient agrees toparticipate in program. Appt. for initial assessment scheduled for 02/05/25 @ 1:00PM. CHW reinforceddirect contact information or for any additional questions or concerns and extended clinic hours on Mondays and Wednesdays, and Walk-In Urgent Care Located in [facility] of [facility]. Patient provided with after-hours line for [facility], , which offer night time triage service and option to transfer to cat wagon operator provider if needed. Patient verbalizes understanding, and able to repeat back to fiction writer. documented in this encounter Plan of Treatment Upcoming Encounters Date Type Department Care Team ([facility] st Contact Info) Description 03/13/2025 10:30 AM EDT Office Visit [facility] MEDICINE 230 [place] [address] Name, MD Rafiq 230 [place] [address] 05/13/2025 11:30 AM EDT Clinical Support [facility] MEDICINE 230 [place] [address] Krysta Huston RN documented as of this encounter Visit Diagnoses Not on filedocumented in this encounter Additional Health Concerns Assessment Noted Time PHQ-9 Depression Total Score: 0 02/05/20 24 2:30 PM EDT documented as of this encounter Care Teams Tobacco Sizer Relationship Specialty Start Date End Date Name, MD Rafiq [address] [place] [address] PCP - General Family Medicine 12/16/15 documented as of this encounter
--- OUTSIDE RECORDS SUMMARY | 2025-02-12 17:06 | XMS_ITS | Encounter Summary ---
Author Organization [employer] [facility] Address [address] [facility] 7t [place] [address] Care Team Providers Care Butter Grader Name Role Phone Name, Rafiq JENKINS Primary Care Provider [phone] Jairon Rose RN Unavailable [phone] Encounter Details Date Type Department Care Team ([facility] Contact Info) Description 04/27/2023 Abstract [facility] MEDICINE 230 [place], [place] [phone] Name, MD Rafiq 230 [place] [address] Social History Tobacco Use Types Packs/Day Years [...] Upcoming Encounters Date Type Department Care Team ([facility] Contact Info) Description 03/13/2025 10:30 AM EDT Office Visit [address] [address] Name, MD [place] [address] 05/13/2025 11:30 AM EDT Clinical Support [address] [address] Krysta Huston, RN documented as of this encounter Procedures Procedure Name Priority Date/Time Associated Diagnosis Comments COLONOSCOPY Routine 12/24/2020 12:59 PM EST documented in this encounter Results * Colonoscopy (12/24/2020 12:59 PM EST) Colonoscopy Normal Normal Narrative Danielle Orellana - 12/24/2020 12:59 PM EST Recommended 5 year follow up Historical Provider HEALTH MAINTENANCE Final Result documented in this encounter Visit Diagnoses Not on filedocumented in this encounter Care Teams Butter Grader Relationship Specialty Start Date End Date Name, MD Rafiq 230 [place] [address] PCP - General Family Medicine 12/16/15 Jairon Rose, RN [address] [place] [address] Sample CoordinatorOrientation And Mobility Instructor 02/05/25 documented as of this encounter
--- OUTSIDE RECORDS SUMMARY | 2025-02-12 17:06 | XMS_ITS | Encounter Summary ---
Author Organization [employer] Address [address] [facility] 7t [place] [address] Care Team Providers Care Laundry Aid Name Role Phone Name, Rafiq JENKINS Primary Care Provider [phone] Encounter Details Date Type Department Care Team [...] 03/13/2025 10:30 AM EDT Office Visit [facility] MEDICINE [address] [place] [address] NameRafiq MD [address] [place] [address] 05/13/2025 11:30 AM EDT Clinical Support [address] [address] Krysta Huston, RN documented as of this encounter Visit Diagnoses Not on filedocumented in this encounter Additional Health Concerns Assessment Noted Time PHQ-9 Depression Total Score: 10 025 11:59 AM EDT documented as of this encounter Care Teams Laundry Aid Relationship Specialty Start Date End Date Rafiq Grace MD [address] [place] [address] PCP - General Family Medicine 12/16/15 documented as of this encounter
--- OUTSIDE RECORDS SUMMARY | 2025-02-12 17:06 | XMS_ITS | Encounter Summary ---
Author Organization [facility] Address [address] [place] [address] Care Team Providers Care Lozenge Maker Helper Name Role Phone NameRafiq MD Primary Care Provider Unavailoj e Rafiq Grace MD Primary Care Provider Unavailabl e Magdalena Coreas CHOCOLATE DIPPER Unavailable [phone] Mk Rolon MD Unavailable [phone] Encounter Details Date Type Department Care Team Description 01/12/2012 [place] [facility] [address] [address] Name, MD Rafiq Social History Tobacco Use [...] on filedocumented in this encounter Care Teams Lozenge Maker Helper Relationship Specialty Start Date End Date Rafiq Grace MD PCP - General 07/30/08 01/30/16 Rafiq Grace MD PCP - General Internal Medicine 01/31/16 Magdalena Coreas NP Cardiology 04/14/21 Mk Rolon MD [address] [place] [address] [address] [place] [address] Specialist Cardiovascular Disease 04/14/21 documented as of this encounter
--- OUTSIDE RECORDS SUMMARY | 2025-02-12 17:06 | XMS_ITS | Encounter Summary ---
Author Organization [employer] Address [address] [facility] [address] 7t [place] [address] Care Team Providers Care Cost Controller Name Role Phone Name, Rafiq JENKINS Primary Care Provider [phone] Reason for Visit * Reason Onset Date Comments chartprep 01/29/2025 Encounter Details Date Type Department Care Team ([facility] st Contact Info) Description 01/29/2025 Telephone [facility] MEDICINE 230 [place], [place] [phone] Lesli Antoine MA chartprep Social History Tobacco [...] Description 03/13/2025 10:30 AM EDT Office Visit [address] [address] Name, MD Rafiq [address] [place] [address] 05/13/2025 11:30 AM EDT Clinical Support [address] [address] Krysta Huston RN documented as of this encounter Visit Diagnoses Not on filedocumented in this encounter Additional Health Concerns Assessment Noted Time PHQ-9 Depression Total Score: 0 02/05/20 24 2:30 PM EDT documented as of this encounter Care Teams Cost Controller Relationship Specialty Start Date End Date Name, MD Rafiq [address] [place] [address] PCP - General Family Medicine 12/16/15 documented as of this encounter
--- OUTSIDE RECORDS SUMMARY | 2025-02-12 17:07 | XMS_ITS | Encounter Summary ---
Author Organization [employer] Address [address] [facility] [address] 7t [place] [address] Care Team Providers Care Nursing Support Worker Name Role Phone Name, Rafiq JENKINS Primary Care Provider [phone] Encounter Details Date Type Department Care Team ([facility] st Contact Info) Description 02/03/2025 Orders Only [facility] External Provider, [facility] Social History Tobacco Use Types Packs/Day [...] Description 03/13/2025 10:30 AM EDT Office Visit [facility] MEDICINE [address] [place] [address] NameRafiq MD [address] [place] [address] 05/13/2025 11:30 AM EDT Clinical Support [address] [address] Krysta Huston RN documented as of this encounter Procedures Procedure Name Priority Date/Time Associated Diagnosis Comments XR CHEST 2 VIEWS Routine 02/03/2025 10:4 2 AM EDT documented in this encounter Results * XR Chest 2 Views (02/03/2025 10:42 AM EDT) Anatomical Region Laterality Modality Chest Radiographic Nova ging 02/03/2025 10:4 2 AM EDT Narrative 02/03/2025 11:00 AM EDT ? [facility] ?[address] ?[place] [address] ?XRay Report ? Signed ? Patient: Deidre Colon,Trenton ?MR#: [id number] ?? [id number] ? : 1965 ?Acct:[id number] ? Age/Sex: 59 / M ?ADM Date: 03/11/25 ? Loc: HO.XRAY ? Attending Dr: Lisa Middleton DIRECTORY OPERATOR ? Ordering Physician: Lisa Middleton NP ?? Date of Service: 02/03/25 ?? Procedure(s): XR chest 2V ?? Accession Number(s): [id number] ? cc: Name,Rafiq JENKINS; Lisa Middleton NP [...] DD/ 1042 ? TD/TT: 02/03/25 1053 ? Director Of Orthopedics: ? Procedure Note Donhajater, Image - 02/03/2025 [place] [address] MARIOay Report Signed Patient: Erick Bejarano#: M [id number] : 1965Acct:[id number] Age/Sex: 59 / MADM Date: 02/03/25 Loc: [facility] Attending Dr: Lisa Middleton NP Ordering Physician: Lisa Middleton NP Date of Service: 02/03/25 Procedure(s): XR chest 2V Accession Number(s): [id number] cc: Rafiq Grace MD; Lisa Middleton NP [...] 02/03/25 1057 DD/ 1042 TD/TT: 02/03/25 1053 Director Of Orthopedics: [facility] External Provider IMG XR PROCEDURES Final Result documented in this encounter Visit Diagnoses Not on filedocumented in this encounter Additional Health Concerns Assessment Noted Time PHQ-9 Depression Total Score: 10 025 11:59 AM EDT documented as of this encounter Care Teams Nursing Support Worker Relationship Specialty Start Date End Date Name, MD Rafiq 230 [place] [address] PCP - General Family Medicine 12/16/15 documented as of this encounter
--- OUTSIDE RECORDS SUMMARY | 2025-02-12 17:07 | XMS_ITS | Encounter Summary ---
Author Organization [employer] Address [address] [facility] 7t [place] [address] Care Team Providers Care Showroom Manager Name Role Phone Name, Rafiq JENKINS Primary Care Provider Jairon Rose RN Unavailable [phone] Reason for Visit * Reason Onset Date Comments ICE CARVER Renewal today 02/11/2025 Encounter Details Date Type Department Care Team ([facility] st Contact Info) Description 02/11/2025 Telephone [facility] MEDICINE 230 [place] [address] Krysta Huston, RN ICE CARVER Renewal today Social History Tobacco Use Types Packs/Day Years [...] Telephone Encounter - Krysta Huston RN - 02/11/2025 11:50 AM EDT Pt had ICE CARVER Renewal appt today BPI updated Pain severity score of 7, activity interference score of 6.6. Previous BPI completed 08/06/24 with pain severity score of 8, activity interference score of 7.7. Pt states he quit smoking over a month ago. documented in this encounter Plan of Treatment Upcoming Encounters Date Type Department Care Team (Late st Contact Info) Description 03/13/2025 10:30 AM EDT Office Visit [facility] MEDICINE [address] [place] [address] Name, MD Rafiq [address] [place] [address] 05/13/2025 11:30 AM EDT Clinical Support [facility] MEDICINE [address] [place] [address] Krysta Huston RN documented as of this encounter Visit Diagnoses Not on filedocumented in this encounter Additional Health Concerns Assessment Noted Time PHQ-9 Depression Total Score: 10 025 11:59 AM EDT documented as of this encounter Care Teams Showroom Manager Relationship Specialty Start Date End Date NameRafiq MD [address] [place] [address] PCP - General Family Medicine 12/16/15 Jairon Rose, LUCAS [address] [place] [address] [employer] Core Transformer AssemblerHome Sales Service Professional 02/05/25 documented as of this encounter
--- OUTSIDE RECORDS SUMMARY | 2025-02-12 17:07 | XMS_ITS | Encounter Summary ---
Author Organization [employer] [facility] Address [address] [place] [address] Care Team Providers Care Trim Machine Adjuster Name Role Phone Name, Rafiq JENKINS Primary Care Provider Magdalena Esteban NP Unavailable Mk Rolon MD Unavailable [phone] Reason for Visit * Reason Onset Date Comments Prior Authorization 11/23/2016 Encounter Details Date Type Department Care Team Description 11/23/2016 Telephone Cardiology - [address] [phone] Nga Aguirre PA-C [address] [place] [address] Prior Authorization Social History Tobacco Use Types [...] from auth dept received call back from [facility]. They have gotten an authorization # for the echocardiogram. Auth # [id number] 12/07/16 - 12/07/17 * Telephone Encounter - Nazia Moran - 12/07/2016 1:53 PM EST Received call back from [facility]. They have gotten an authorization # for the echocardiogram. Auth # [id number] 12/07/16 - 12/07/17 * Telephone Encounter - [...] 12/07/2016 1:30 PM EST Patient now has [facility] PCC and needs a prior auth. Still has Dr. Conroy Name as PCP. He is now at [facility]. Called [facility] to acquire authorization. Had to leave [...] on filedocumented in this encounter Care Teams Trim Machine Adjuster Relationship Specialty Start Date End Date Name, MD Rafiq PCP - General Internal Medicine 01/31/16 Magdalena Coreas NP Cardiology 04/14/21 Mk Rolon MD [address] [place] [address] [place] [address] Specialist Cardiovascular Disease 04/14/21 documented as of this encounter
--- OUTSIDE RECORDS SUMMARY | 2025-02-12 17:07 | XMS_ITS | Encounter Summary ---
Author Organization [employer] [facility] Address [address] [place] [address] Care Team Providers Care Dump Motor Operator Name Role Phone Name, Rafiq JENKINS Primary Care Provider UnavailMagdalena Dalton SHERIFF'S DETECTIVE Unavailable [phone] Mk Rolon MD Unavailable [phone] Encounter Details Date Type Department Care Team Description 05/29/2017 [facility] [address] [place] [address] Ethan Mcnamara PA-C Social History Tobacco Use [...] on filedocumented in this encounter Care Teams Dump Motor Operator Relationship Specialty Start Date End Date Name, MD Rafiq PCP - General Internal Medicine 01/31/16 Magdalena Coreas NP Cardiology 04/14/21 Mk Rolon MD [address] [place] [address] [address] [place] [address] Specialist Cardiovascular Disease 04/14/21 documented as of this encounter
--- OUTSIDE RECORDS SUMMARY | 2025-02-12 17:07 | XMS_ITS | Encounter Summary ---
Author Organization [facility] Address [address] [facility] 7t [place] [address] Care Team Providers Care Forensic Psychiatrist Name Role Phone Name, Rafiq JENKINS Primary Care Provider Jairon Rose RN Unavailable [phone] Encounter Details Date Type Department Care Team ([facility] st Contact Info) Description 02/06/2025 Population Health Risk Score [facility] () Department [address] [phone] Provider, Population Health Generic Social History Tobacco Use Types Packs/Day Years [...] Description 03/13/2025 10:30 AM EDT Office Visit [address] [address] Name, MD Rafiq [address] [place] [address] 05/13/2025 11:30 AM EDT Clinical Support [address] [address] Krysta Huston, LUCAS documented as of this encounter Visit Diagnoses Not on filedocumented in this encounter Additional Health Concerns Assessment Noted Time PHQ-9 Depression Total Score: 10 025 11:59 AM EDT documented as of this encounter Care Teams Forensic Psychiatrist Relationship Specialty Start Date End Date Rafiq Grace MD [address] [place] [address] PCP - General Family Medicine 12/16/15 Jairon Rose, LUCAS [address] [place] [address] Platform EngineerVeneer Jointer Returner 02/05/25 documented as of this encounter
--- OUTSIDE RECORDS SUMMARY | 2025-02-12 17:07 | XMS_ITS | Encounter Summary ---
Author Organization [employer] Address 75 [facility] 7t [place] [address] Care Team Providers Care Animal Control Officer Name Role Phone Name, Rafiq JENKINS Primary Care Provider [phone] Jairon Rose RN Unavailable [phone] Reason for Visit * Reason Onset Date Comments Care Management 02/06/2025 C3CM- initial as sessment/enrollment Encounter Details Date Type Department Care Team ([facility] st Contact Info) Description 02/06/2025 Telephone [facility] [address] [place], [place] [phone] Name, MD Rafiq [address] [place] [address] Care Management (C3- initial assessment/enrollment) Social History Tobacco Use Types Packs/Day Years [...] Telephone Encounter - Jairon Rose RN - 02/06/2025 10:22 AM EDT JANETT Rose RN, provided notification to PCP Name of patient's enrollment into C3 Complex Care Program. JANETT Rose RN, completed care plan and sent to HIM to be scanned into the medical record. PCPnotified and awaiting review from provider. CM plan -assist with appointment scheduling/reminders -assist with SDOH needs -educate on disease process * Telephone Encounter - Jairon Rose RN - 02/06/2025 10:21 AM EDT JANETT Rose RN placed outbound call to patient for agreed upon time for initial assessment forenrollment into Adult Care Management Program. Patient's name, , and address were verified. Trenton Elaine is a 59-year-old Cambodian speaking male with PMH of: bilateral carpal tunnel syndrome, ASHLEE, other emphysema, nicotine dependence, fibromyositis, periodontal disease, umbilical hernia without obstruction and without gangrene, old myocardial infarction, lumbar spondylosis, GERD, chronic eczema of hand, anxiety, asthma, BPH, chronic back pain, CAD, depression, HTN, HLD, severe obesity, plantar fasciitis, prediabetes, stented coronary artery, tobacco use disorder continuous. Patient reports being followed by the following specialist: [facility] vascular surgery, [facility] cardiovascular, [facility] pulmonology, optometry, [facility] pain management. [facility] the following [facility], [facility] vascular surgeon on 02/19/25 @ 2:40 PM, CT scan of the heart on 02/10/25, [facility] [place] on 02/11/25 @ 11:30 AM, eye test appt on 02/17/25 @ 3:20 PM in [facility]. Patient reported that he had carpal tunnel surgery of his right hand on 01/01/25 and that he is supposed to have surgery of his left hand in February. Patient reported the following past surgical history: 2 hernia umbilical surgery, and neck surgery to remove a lump. Patient reported that they recently found an ulcer on his aortic vein and has upcoming appts with cardio and vascular to discussplan and see if surgery is indicated. Patient does report some hearing concerns, denies any pain. Patient also reports some vision concerns and does wear glasses. Patient does have an upcoming visiontest. Patient denies any dental pain or concerns at this time. Patient's most recent hospitalization was from 01/22/25-01/25/25 at [facility] and pt already completed his HDF appointment on 02/02/25. Patient report having the following DME supplies: BP machine, and CPAP machine. Patient reports needing CPAP supplies (mask and tubing), currently using the one that was given to him after most recent hospitalization. Company that prescribed the CPAP machine is [facility]. CM will assist in calling company to request CPAP supplies for pt. Patient reports being on a heart healthy diet such as consuming low sodium. Patient reported that he's taking 2 types of vitamins but didn't know which ones. Chery ent doesn't exercise due to getting fatigue easily. Pt reports that his current weight is 210 lbs and is interested in either maintaining weight or losing some weight. Patient reports that he check'shis BP 2-3 a day and currently is controlled for the most part systolic raging from 130-144. Pt report suffering from pain 18/06 due to his joints and arthritis. Pt reports taking the following medication for pain management: gabapentin 300 mg, percocet, and baclofen. Patient denies any depression/anxiety, or any SI/HI. Pt reports not smoking cigarettes since 12/31/24 and denies drinking or any illegal drugs. Patient reports that his partner assists him currently with his ADL's such as dressing. Doesn't have a VNA or GROUNDS CREW SUPERVISOR. 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 Patient has been staying with his partner who has a section 8 appointment for years. Patient reports that his partner is currently on a light payment plan. Patient reports that his partner receives food stamps but sometimes the food isn'tenough. Pt reports that he has transportation, but the car is unreliable at times. CM inform to letus know if he needs transportation to any of his medical appointments. Patient report that he currently applied for SSI and social security. Patient reports that his main concerns are economical. CM inform that we will assist with SDOH/medical needs throughout the program. Care management program explained and contact information given. Patient verbalizes understanding, and able to repeat back to flex o writer operator. A follow up call will be placed within 10 days, patient agrees with plan. documented in this encounter Plan of Treatment Upcoming Encounters Date Type Department Care Team (Late st Contact Info) Description 03/13/2025 10:30 AM EDT Office Visit [facility] [address] [place] [address] Name, MD Rafiq [address] [place] [address] 05/13/2025 11:30 AM EDT Clinical Support [facility] [address] [place] [address] Krysta Huston RN documented as of this encounter Visit Diagnoses Not on filedocumented in this encounter Additional Health Concerns Assessment Noted Time PHQ-9 Depression Total Score: 10 025 11:59 AM EDT documented as of this encounter Care Teams Animal Control Officer Relationship Specialty Start Date End Date Name, MD Rafiq [address] [place] [address] PCP - General Family Medicine 12/16/15 Jairon Rose, LUCAS [address] [place] [address] Searchlight OperatorDirector Economic 02/05/25 documented as of this encounter
--- OUTSIDE RECORDS SUMMARY | 2025-02-12 17:07 | XMS_ITS | Encounter Summary ---
Author Organization [employer] [facility] Address [address] [place] [address] Care Team Providers Care Dredge Engineer Name Role Phone Name, Rafiq JENKINS Primary Care Provider Magdalena Esteban MILITARY TECHNOLOGY SPECIALIST Unavailable [phone] Mk Rolon MD Unavailable [phone] Encounter Details Date Type Department Care Team Description 11/19/2016 Hospital Medical Records [address] [place] [address] Alberto Loera MD [address] [place] [address] Social History Tobacco Use Types Packs/Day Years [...] filedocumented in this encounter Care Teams Dredge Engineer Relationship Specialty Start Date End Date Name, MD Rafiq PCP - General Internal Medicine 01/31/16 Magdalena Coreas NP Cardiology 04/14/21 Mk Rolon MD [address] [place] [address] [address] [place] [address] Specialist Cardiovascular Disease 04/14/21 documented as of this encounter
--- OUTSIDE RECORDS SUMMARY | 2025-02-12 17:07 | XMS_ITS | Encounter Summary ---
Author Organization [facility] Address [address] [place] [address] Care Team Providers Care Belly Packer Name Role Phone Name, Rafiq JENKINS Primary Care Provider Magdalena Esteban ETL ANALYST DEVELOPER Unavailable [phone] Mk Rolon MD Unavailable [phone] Encounter Details Date Type Department Care Team Description 09/18/2019 Release of Information Medical Records [address] [place] [address] Abstract, Provider Social History Tobacco Use Types [...] on filedocumented in this encounter Care Teams Belly Packer Relationship Specialty Start Date End Date Name, MD Rafiq PCP - General Internal Medicine 01/31/16 Magdalena Coreas, SELINA Cardiology 04/14/21 Mk Rolon MD [address] [place] [address] [address] [place] [address] Specialist Cardiovascular Disease 04/14/21 documented as of this encounter
--- OUTSIDE RECORDS SUMMARY | 2025-02-12 17:07 | XMS_ITS | Encounter Summary ---
Author Organization [employer] Address [address] [facility] 7t [place] [address] Care Team Providers Care Clubhouse Manager Name Role Phone Name, Rafiq JENKINS Primary Care Provider [phone] Jairon Rose RN Unavailable [phone] Reason for Visit * Reason Onset Date Comments Care Management 02/09/2025 C3CM Encounter Details Date Type Department Care Team ([facility] st Contact Info) Description 02/09/2025 Telephone [facility] MEDICINE [address] [place], [place] [phone] Name, MD Rafiq [address] [place] [address] Care Management (C3CM) Social History Tobacco Use Types Packs/Day Years [...] Telephone Encounter - Jairon Rose RN - 02/09/2025 1:10 PM EDT CM Jairon Rose RN placed outbound call to patient introducing herself from [facility] CM Department, in regards to remind patient of appt for CT scan on 02/10, SUPERVISOR ASSEMBLY [place] 02/11 and cardiology on 02/12. Patient's name and was confirmed. Patient is aware and confirmed will be available and has no barriers on attending this appointment. Patient verbalized understanding and agrees with plan. documented in this encounter Plan of Treatment Upcoming Encounters Date Type Department Care Team (Late st Contact Info) Description 03/13/2025 10:30 AM EDT Office Visit [facility] MEDICINE [address] [place] [address] Name, MD Rafiq [address] [place] [address] 05/13/2025 11:30 AM EDT Clinical Support [address] [address] Krysta Huston, RN documented as of this encounter Visit Diagnoses Not on filedocumented in this encounter Additional Health Concerns Assessment Noted Time PHQ-9 Depression Total Score: 10 025 11:59 AM EDT documented as of this encounter Care Teams Clubhouse Manager Relationship Specialty Start Date End Date Name, MD Rafiq [address] [place] [address] PCP - General Family Medicine 12/16/15 Jairon Rose, LUCAS [address] [place] [address] Inpatient CoderBaling Machine Operator 02/05/25 documented as of this encounter
--- OUTSIDE RECORDS SUMMARY | 2025-02-12 17:07 | XMS_ITS | Encounter Summary ---
Author Organization [facility] Address [address] [place] [address] Care Team Providers Care Chemical Engineering Professor Name Role Phone Name, Rafiq JENKINS Primary Care Provider Magdalena Esteban NP Unavailable [phone] Mk Rolon MD Unavailable [phone] Reason for Visit * Reason Onset Date Comments other 03/15/2021 Cardiac Rehab Encounter Details Date Type Department Care Team Description 03/15/2021 Telephone [facility]io [facility] [address] [place] [address] Magdalena Coreas NP [address] [place] [address] Dr Mendes [address] [place] [address] other (Cardiac Rehab ) Social History Tobacco [...] EDT Pt will like to go to [place] [facility] , I will send over all paperwork to the cardiac rehab office in [place] . documented in this encounter Plan of Treatment Not on file documented as of this encounter Visit Diagnoses Not on filedocumented in this encounter Care Teams Chemical Engineering Professor Relationship Specialty Start Date End Date Name, MD Rafiq PCP - General Internal Medicine 01/31/16 Magdalena Coreas NP Cardiology 04/14/21 Mk Rolon MD [address] [place] [address] [place] [address] Specialist Cardiovascular Disease 04/14/21 documented as of this encounter
--- OUTSIDE RECORDS SUMMARY | 2025-02-12 17:07 | XMS_ITS | Encounter Summary ---
Author Organization [employer] Address [address] [facility] [address] 7t [place] [address] Care Team Providers Care Veneer Sorter Name Role Phone Name, Rafiq JENKINS Primary Care Provider Jairon Rose RN Unavailable [phone] Encounter Details Date Type Department Care Team (Latest Contact Info) Description 02/11/2025 Travel Social History Tobacco Use Types Packs/Day [...] t he electric, gas, oil or water [email or web address] threatened to shut off services in your [...] Description 03/13/2025 10:30 AM EDT Office Visit [address] [address] Name, MD Rafiq [address] [place] [address] 05/13/2025 11:30 AM EDT Clinical Support [address] [address] Krysta Huston, LUCAS documented as of this encounter Visit Diagnoses Not on filedocumented in this encounter Additional Health Concerns Assessment Noted Time PHQ-9 Depression Total Score: 10 025 11:59 AM EDT documented as of this encounter Care Teams Veneer Sorter Relationship Specialty Start Date End Date Rafiq Grace MD [address] [place] [address] PCP - General Family Medicine 12/16/15 Jairon Rose, LUCAS [address] [place] [address] Landscape SupervisorSupervisor Fleshing 02/05/25 documented as of this encounter
--- OUTSIDE RECORDS SUMMARY | 2025-02-12 17:07 | XMS_ITS | Encounter Summary ---
Author Organization [employer] Address [address] [facility] 7t [place] [address] Care Team Providers Care Furniture And Bedding Inspector Name Role Phone Name, Rafiq JENKINS Primary Care Provider [phone] Reason for Visit * Reason Comments Care Coordination C3 -KIMBERLY hand telephone call outreach Encounter Details Date Type Department Care Team (Latest Contact Info) Description 02/04/2025 Patient Outreach [facility] [address] [place], [place] [phone] Name, MD Rafiq [address] [place] [address] Care Coordination (C3 JANETT-KIMBERLY Miranda telephone call outreach) Social History Tobacco [...] encounter Progress Notes * Rosaura Miranda - 02/04/2025 11:48 AM EDT CHW Rosaura Miranda placed outbound call to patient introducing herself from [facility] CM Department, in regard to remind patient of Adult Complex Care program initial assessment appt for tomorrow 02/05/25 @ 1:00PM via telephone. Patient's name and was confirmed. Patient is aware and confirmed will be available for call and has no barriers on attending call. Patient verbalized understanding and agreed with plan. documented in this encounter Plan of Treatment Upcoming Encounters Date Type Department Care Team (Late st Contact Info) Description 03/13/2025 10:30 AM EDT Office Visit [facility] [address] [place] [address] Name, MD Rafiq [address] [place] [address] 05/13/2025 11:30 AM EDT Clinical Support [address] [address] Krysta Huston, RN documented as of this encounter Visit Diagnoses Not on filedocumented in this encounter Additional Health Concerns Assessment Noted Time PHQ-9 Depression Total Score: 10 025 11:59 AM EDT documented as of this encounter Care Teams Furniture And Bedding Inspector Relationship Specialty Start Date End Date Name, MD Rafiq [address] [place] [address] PCP - General Family Medicine 12/16/15 documented as of this encounter
--- OUTSIDE RECORDS SUMMARY | 2025-02-12 17:07 | XMS_ITS | Encounter Summary ---
Author Organization [facility] Address [address] [place] [address] Care Team Providers Care Electronic Gaming Device Supervisor Name Role Phone Name, Rafiq JENKINS Primary Care Provider Magdalena Esteban SYSTEMS PLANNER Unavailable [phone] Mk Rolon MD Unavailable [phone] Encounter Details Date Type Department Care Team Description 11/22/2016 [facility] Medical Records [address] [place] [address] Social History Tobacco Use Types Packs/Day Years [...] on filedocumented in this encounter Care Teams Electronic Gaming Device Supervisor Relationship Specialty Start Date End Date Name, MD Rafiq PCP - General Internal Medicine 01/31/16 Magdalena Coreas, SELINA Cardiology 04/14/21 Mk Rolon MD [address] [place] [address] [address] [place] [address] Specialist Cardiovascular Disease 04/14/21 documented as of this encounter
--- OUTSIDE RECORDS SUMMARY | 2025-02-12 17:07 | XMS_ITS | Encounter Summary ---
Author Organization [employer] Address [address] [facility] [address] 7t [place] [address] Care Team Providers Care Igniter Capper Name Role Phone Name, Rafiq JENKINS Primary Care Provider [phone] Jairon Rose RN Unavailable [phone] Reason for Visit * Reason Comments Med Change Request Encounter Details Date Type Department Care Team ([facility] Contact Info) Description 09/24/2023 Refill [facility] MEDICINE [address] [place], [place] [phone] Name, MD Rafiq [address] [place] [address] Social History Tobacco Use Types Packs/Day Years [...] Description 03/13/2025 10:30 AM EDT Office Visit [address] [address] Name, MD Rafiq [address] [place] [address] 05/13/2025 11:30 AM EDT Clinical Support [address] [address] Krysta Huston RN documented as of this encounter Visit Diagnoses Not on filedocumented in this encounter Care Teams Igniter Capper Relationship Specialty Start Date End Date Name, MD Rafiq [address] [place] [address] PCP - General Family Medicine 12/16/15 Jairon Rose, LUCAS [address] [place] [address] Igniter CapperBerry Planter 02/05/25 documented as of this encounter
--- OUTSIDE RECORDS SUMMARY | 2025-02-12 17:07 | XMS_ITS | Encounter Summary ---
Author Organization [employer] Address [address] [facility] 7t [place] [address] Care Team Providers Care Wool Washer Name Role Phone Name, Rafiq JENKINS Primary Care Provider [phone] Jairon Rose RN Unavailable [phone] Reason for Visit * Reason Onset Date Comments Durable Medical Equipment 02/03/2025 Pulse oxymeter Encounter Details Date Type Department Care Team ([facility] st Contact Info) Description 02/03/2025 Telephone [facility] MEDICINE [address] [place], [place] [phone] Name, MD Rafiq [address] [place], [place] [phone] Durable Medical Equipment (Pulse oxymeter) Social History [...] * Telephone Encounter - Ping Somers - 02/06/2025 12:29 PM EDT RX for pulse oxymeter signed and faxed to [facility] . Confirmation received and sent to scan. If patient calls to check status on above, please advise them to contact [facility] at [phone]. * Telephone Encounter - Ping Somers - [...] Description 03/13/2025 10:30 AM EDT Office Visit [address] [address] Name, MD Rafiq [address] [place] [address] 05/13/2025 11:30 AM EDT Clinical Support [address] [address] Krysta Huston, RN documented as of this encounter Visit Diagnoses Not on filedocumented in this encounter Additional Health Concerns Assessment Noted Time PHQ-9 Depression Total Score: 10 025 11:59 AM EDT documented as of this encounter Care Teams Wool Washer Relationship Specialty Start Date End Date Name, MD Rafiq [address] [place] [address] PCP - General Family Medicine 12/16/15 Jairon Rose, RN [address] [place] [address] Supervisor Self Service StoreChili Maker 02/05/25 documented as of this encounter
--- OUTSIDE RECORDS SUMMARY | 2025-02-12 17:07 | XMS_ITS | Encounter Summary ---
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 I have lucrecia sing 02/05/[address] you li [...] Progress Notes * Krysta Huston RN - 02/11/2025 11:30 AM EDT S: Pt here for BROKE BEATER MACHINE OPERATOR Renewal Visit. Prescribed Percocet 5mg Q6hr PRN. States he has been taking as prescribed, last dose taken this morning. States he quit smoking cigarettes over a month ago and he;s very happy. CONGRATULATED! Denies Illicit drug use and marijuana use. States he will drink 2-3 beerssocially on holidays. Currently rates his pain a 7 and states medication is 60% effective at alleviating his pain. Current pain sites are his back, neck, right shoulder, left knee and both wrists/carpal tunnel 01/01/25 pt had right carpal tunnel release surgery. He attends [facility] Pain management, receives lumbar and knee injections. O: BROKE BEATER MACHINE OPERATOR Tier 2. Pt currently prescribed Percocet 5mg Q6hr PRN. CAGE MAKER verified today. Rx last filled on02/02/25 Pill count performed. Pt has 76 pills at this time, 76 at least expected. Medication is notoverused by patient. UTOX completed. Positive for OXY, Negative for AMP, BAR, BUP, BZO, ISAAC, FTY, MDMA, MET, MOP, MTD, PCP, TCA, THC. UTOX as expected. BPI updated, see scanned documents from this date. Pain severity score of 7, activity interference score of 6.6. Previous BPI completed 08/06/24 with pain severity score of 8, activity interference score of 7.7. Narcan medication reviewed, how it'sadministered and when it's used. Pt stated he understood and has it available. Will update PCP withBPI scoring. Last PCP visit was 10/15/24, scheduled next 03/13/25. A: BROKE BEATER MACHINE OPERATOR Contract Renewal Visit: Chronic Opioid use related to pain. P: BROKE BEATER MACHINE OPERATOR contract reviewed and signed, Pt provided copy. Pt to continue taking medication only as prescribed; Next BROKE BEATER MACHINE OPERATOR RV appointment scheduled for 05/13/25 @ 11:30a, F/U sooner PRN. Appointment reminder given. Pt verbalized understanding and agreed to plan. documented in this encounter Plan of Treatment Upcoming Encounters Date Type Department Care Team (Late st Contact Info) Description 03/13/2025 10:30 AM EDT Office Visit [address] [address] Name, MD Rafiq [address] [place] [id number] 05/13/2025 11:30 AM EDT Clinical Support [address] [address] Krysta Huston, RN documented as of this encounter Procedures Procedure Name Priority Date/Time Associated Diagnosis Comments POCT FRANCI-14 URINE DRUG SCREEN Routine 02/11/2025 11:36 AM EDT Chronic bilateral low back pain with left-sided sciatica documented in this encounter Results * POCT FRANCI-14 Urine Drug Screen (02/11/2025 11:36 AM EDT) Oxycodone Screen, Urine Positive Urine Urine specimen obtained by clean catch procedure / Unknown 02/11/2025 11:36 AM EDT Narrative Krysta Huston, RN - 02/11/2025 11:36 AM EDT UTOX cup Lot#[id number] Exp. 07/15/26 Internal Pass Control Rafiq Grace MD POINT OF CARE TEST ENTER/EDIT OR DERABLES Final Result documented in this encounter Visit Diagnoses Diagnosis Chronic bilateral low back pain with left-sided sciatica- Primary [facility] (current) use of opiate analgesic documented in this encounter Additional Health Concerns Assessment Noted Time PHQ-9 Depression Total Score: 10 025 11:59 AM EDT documented as of this encounter Care Teams Fabric Separator Operator Relationship Specialty Start Date End Date Name, MD Rafiq [address] [place] [address] PCP - General Family Medicine 12/16/15 Jairon Rose, LUCAS [address] [place] [address] Blending CoordinatorCow Tender 02/05/25 documented as of this encounter
== END 2025-02-12 15:28 | disposition home or self-care (01) ==
LOC: HO.HCS 14:28
PROVIDERS: PCP Internal Medicine Geriatric Medicine
DX: R07.9 Chest pain, unspecified (principal); R06.00 Dyspnea, unspecified; I25.10 Atherosclerotic heart disease of native coronary artery without angina pectoris; I10 Essential (primary) hypertension; E78.5 Hyperlipidemia, unspecified; Z09 Encounter for follow-up examination after completed treatment for conditions other than malignant neoplasm
CPT/HCPCS: 99214

== ENCOUNTER → 2025-02-12 14:28 | Outpatient (BNVA) | payer MEDICAID, SELFPAY | PROVIDERS: PCP Internal Medicine Geriatric Medicine | DX: I10 Essential (primary) hypertension (principal); E66.9 Obesity, unspecified; R07.9 Chest pain, unspecified; R06.00 Dyspnea, unspecified; I25.10 Atherosclerotic heart disease of native coronary artery without angina pectoris; E78.5 Hyperlipidemia, unspecified; Z09 Encounter for follow-up examination after completed treatment for conditions other than malignant neoplasm; Z68.37 Body mass index [BMI] 37.0-37.9, adult; Z87.891 Personal history of nicotine dependence | CPT/HCPCS: 99212 ==

== ENCOUNTER 2025-02-13 09:47 | Outpatient (REF) | payer MEDICAID, SELFPAY ==
[2025-02-13 10:54] LABS: Cholesterol 129 mg/dL (<200); HDL Cholesterol 37 mg/dL (>40); LDL Cholesterol Calculated 73 mg/dL (<100); Triglycerides 97 mg/dL (<150)
== END 2025-02-13 09:48 | disposition home or self-care (01) ==
LOC: HO.LAB 09:47
PROVIDERS: PCP Internal Medicine Geriatric Medicine
DX: I25.10 Atherosclerotic heart disease of native coronary artery without angina pectoris (principal)
CPT/HCPCS: 36415; 80061

== ENCOUNTER 2025-03-18 15:05 | Outpatient (AMB) | payer MEDICAID, SELFPAY ==
[2025-03-18 15:07] VITALS: BP 134/68; PULSE 70; O2SAT 98; BMI 39.5
--- NOTE | 2025-03-18 15:07 | MHC.OFFVIS ---
Vital Signs 03/18/25 15:07 Height 5 ft 3 in Weight 223 lb BMI 39.5 BP 134/68 Blood Pressure Location Rt brachial Position Sitting Pulse 70 Pulse Source Pulse Oximeter Pulse Oximetry (%) 98 Oxygen Delivery Method Room Air Intake Visit Reasons: Obstructive sleep apnea Net Fisher Required: No Car Filler: Car Filler offered & declined Accompanied by: Self / Same As Patient Allergies naproxen Adverse Reaction (Intermediate, Verified 03/18/25 15:11) kidney problems, hematuria ibuprofen Adverse Reaction (Verified 03/18/25 15:11) hematuria Medication List - Last Reconciled 03/18/25 by Valerie Berumen LPN albuterol sulfate 90 mcg/actuation 2 puffs inhalation Q4-6H PRN alirocumab (Praluent Pen) 75 mg subcut Q14D amlodipine 2.5 mg PO DAILY arm brace As directed aspirin 81 mg PO DAILY atorvastatin 80 mg PO DAILY baclofen 10 mg PO BID docusate sodium 100 mg PO QAM ergocalciferol (vitamin D2) (Vitamin D2) 1,250 mcg PO QWEEK ezetimibe 10 mg PO QAM fluticasone furoate-vilanterol 200-25 mcg/dose (Breo Ellipta) 1 inh inhalation DAILY fluticasone propionate 50 mcg/actuation 2 sprays intranasal DAILY gabapentin 300 mg PO BID hydrocortisone 2.5% (Proctozone-HC) 1 appl AK BID PRN ipratropium bromide 2 sprays intranasal BID isosorbide mononitrate ER 60 mg PO DAILY metoprolol tartrate 100 mg PO BID 90 days multivitamin with folic acid 400 mcg (Daily-Maddi (with folic acid)) 1 tab PO QAM naloxone 4 mg/actuation 0 sprays intranasal nitroglycerin 0.4 mg sublingual Q5M PRN pantoprazole 20 mg PO DAILY simethicone (Gas Relief (simethicone)) 125 mg PO TID-QID PRN tamsulosin 0.4 mg PO BEDTIME tiotropium bromide 2.5 mcg/actuation (Spiriva Respimat) 2 puffs inhalation DAILY HPI HPI Obstructive sleep apnea: Details: Trenton is a pleasant 59 year male former 40 pack year smoker, quit 2 months ago, with underlying asthma/COPD overlap, pulmonary nodules, ASHLEE on CPAP therapy and CAD s/p stents followed by cardiology. He is currently under evaluation with vacular services through [facility] for acute penetrating atherosclerotic ulcer or a saccular aneurysm with mural thrombus. He is going to have surgery to repair in the near future after further evaluation. At baseline, his respiratory symptoms are well controlled on Breo and Spiriva. At the last visit, he reported bronchitic symptoms and was treated with doxycycline, CXR unremarkable, with resolution of symptoms. Unfortunately, symptoms recurred a few weeks later and continues with productive cough with brown sputum as well as increased dyspnea. Denies fevers, chills or sick contacts. Today he presents to review compliance report for CPAP therapy. [facility] Medical History (Updated 02/12/25 @ 16:00 by Robbie Avery NP) Hemorrhoids Acid reflux Fibromyalgia Herniated lumbar intervertebral disc Herniated cervical disc Hx of osteoarthritis Bilateral carpal tunnel syndrome Hx of renal calculi Hx of migraine headaches Anxiety and depression Sleep apnea Smoker Asthma Myocardial infarction Elevated cholesterol CAD (coronary artery disease) HTN (hypertension) Surgical History Status post excision of lipoma Hx of colonoscopy History of cardiac cath History of esophagogastroduodenoscopy (EGD) Hx of tonsillectomy Hx of umbilical hernia repair H/O lithotripsy History of PTCA Family History Mother Lung cancer Father Prostate cancer Social History Household Members: Significant Other and Family Housing: House Are you a primary intensive care medicine specialist to a significant other at home: No Do you presently have visiting nurse or other home services: No 75 years or older and lives alone: No Alcohol intake: current Alcohol intake frequency: holidays/special occasions only Patient Tobacco Use Status: Former Tobacco user Tobacco use type: Cigarette Cigarette Packs Per Day: 0.5 Cigarettes Per Day: 10 Years Smoked: 40/ Quit 12/31/24 Current occupational status: employed 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 Review of Systems Const Denies chills, Denies excessive sweating, Denies fever(s), Denies headache(s) and Denies night sweats Eyes Denies dry eyes, Denies irritation and Denies itchy eyes ENT Reports Normal hearing present and Denies headache(s) Card Denies chest pain, Denies chest pain at rest, Denies chest pain with activity, Denies claudication, Denies leg edema, Denies orthopnea and Denies paroxysmal nocturnal dyspnea Resp Reports change in phlegm color, Reports chest congestion, Reports cough, Denies hemoptysis, Denies excessive phlegm production, Denies pain on inspiration, Denies pain with cough, Denies stridor and Denies wheezing Musc Denies myalgias Neuro Reports Normal hearing present and Denies headache(s) Endo Denies excessive sweating Lino/Lymph Denies lymphadenopathy Aller/Immun Denies itchy eyes, Denies seasonal rhinorrhea and Denies wheezing Physical Exam Vital Signs: Last Vital Signs Pulse 70 03/18/25 15:07 BP 134/68 03/18/25 15:07 Pulse Ox 98 03/18/25 15:07 Oxygen Delivery Method Room Air 03/18/25 15:07 BMI result Body Mass Index 39.5 Const General: cooperative, healthy appearing, comfortable, no acute distress, well developed and alert Nutritional Appearance: obese Orientation/consciousness: patient oriented x3 Limitations: no limitations HEENT Head: Yes normal to inspection, Yes normocephalic and Yes atraumatic Ears: hearing grossly normal bilaterally and external ears normal Eyes General: appearance normal, both eyes and all related structures Eyelids: Yes eyelids normal Sclerae: sclerae normal EOM: EOMs intact bilaterally Neck Neck: Yes normal visual inspection and Yes no lymphadenopathy Lymphatic: no lymphadenopathy noted Chest Chest palpation & inspection: normal inspection of the chest Resp Other: LLL inspiratory crackles Effort & Inspection: normal respiratory effort, able to speak in complete sentences, no audible wheezes, no cough, no stridor, not tachypneic, no tripod positioning and no use of accessory muscles Cardio Jugular venous distension: no JVD Rate: regular rate Rhythm: regular rhythm Skin Other: warm, dry General skin exam: no rashes or lesions noted Neuro General: patient oriented x3 Cranial nerves: Yes Normal hearing present Cognition (Neuro): normal cognition Gait exam (Neuro): Normal gait present Extrem General: Yes normal to inspection, Yes capillary refill normal, Yes no clubbing, cyanosis or edema and Yes no pedal edema Psych Appearance: grossly normal and well kempt Speech and movement: Normal speech and movement present and Clear speech present Affect: normal affect Attitude: cooperative Thought process: Normal thought process present Thought content: Normal thought content present Insight: Good insight present (Psych) Judgement: Good judgement present (Psych) Assessment & Plan Assessment & Plan (1) COPD (chronic obstructive pulmonary disease): Code(s): J44.9 - Chronic obstructive pulmonary disease, unspecified Category: Medical (2) Cough: Code(s): R05.9 - Cough, unspecified Category: Medical Plan Will treat bronchitic symptoms with Vantin. If no improvement will send for chest CT. He is aware to call if symptoms do not improve. Reviewed compliance report and patient has not been compliant with CPAP therapy which he attributes to having no supplies. Encouraged patient to reach out to DME again as he is motivated to use. All questions were answered and patient is in agreement of plan. Will follow up in 2-4 weeks or sooner if needed. Medications: New cefpodoxime must administer with a meal/food 200 mg PO BID 20 tabs 0RF Coding Level of Care Code Est Pt Level 4 (97936) Diagnoses COPD (chronic obstructive pulmonary disease) J44.9 Cough R05.9
--- OUTSIDE RECORDS SUMMARY | 2025-03-18 17:53 | XMS_ITS | Encounter Summary ---
Author Organization [facility] Address [address] [facility] 7t [place] [address] Care Team Providers Care Production Weigher Name Role Phone Name, Rafiq JENKINS Primary Care Provider [phone] Jairon Rose RN Unavailable [phone] Encounter Details Date Type Department Care Team ([facility] Contact Info) Description 04/27/2023 Abstract [facility]INE [address] [place], [place] [phone] Name, MD Rafiq [address] [place] [address] Social History Tobacco Use Types Packs/Day Years [...] Upcoming Encounters Date Type Department Care Team ([facility] Contact Info) Description 05/13/2025 11:30 AM EDT Clinical Support [facility] [address] [place] [address] Krysta Huston RN documented as of this encounter Procedures Procedure Name Priority Date/Time Associated Diagnosis Comments COLONOSCOPY Routine 12/24/2020 12:59 PM EST documented in this encounter Results * Colonoscopy (12/24/2020 12:59 PM EST) Colonoscopy Normal Normal Narrative Danielle Orellana - 12/24/2020 12:59 PM EST Recommended 5 year follow up us Historical Provider HEALTH MAINTENANCE Final Result documented in this encounter Visit Diagnoses Not on filedocumented in this encounter Care Teams Production Weigher Relationship Specialty Start Date End Date Name, MD Rafiq [address] [place] [address] PCP - General Family Medicine 12/16/15 Jairon Rose RN [address] [place] [address] Etch Operator Semiconductor WafersAutomotive Worker 02/05/25 documented as of this encounter
--- OUTSIDE RECORDS SUMMARY | 2025-03-18 17:53 | XMS_ITS | Encounter Summary ---
Author Organization [employer] [facility] Address [address] [facility] 7t [place] [address] Care Team Providers Care Drilling Superintendent Name Role Phone Name, Rafiq JENKINS Primary Care Provider [phone] Jairon Rose RN Unavailable [phone] Reason for Visit * Reason Comments Med Refill Encounter Details Date Type Department Care Team ([facility] st Contact Info) Description 06/07/2023 Refill [facility] [address] [place], [place] [phone] Name, MD Rafiq [address] [place] [address] Tobacco use disorder, continuous Social History Tobacco [...] Care Team (Late st Contact Info) Description 05/13/2025 11:30 AM EDT Clinical Support [facility] [address] [place] [address] Krysta Huston, LUCAS documented as of this encounter Visit Diagnoses Diagnosis Tobacco use disorder, continuous Tobacco use disorder documented in this encounter Care Teams Drilling Superintendent Relationship Specialty Start Date End Date Name, MD Rafiq [address] [place] [address] PCP - General Family Medicine 12/16/15 Jairon Rose, LUCAS [address] [place] [address] Fisher SpearCivil Division Deputy Sheriff 02/05/25 documented as of this encounter
--- OUTSIDE RECORDS SUMMARY | 2025-03-18 17:53 | XMS_ITS | Encounter Summary ---
Author Organization [employer] [facility] Address [address] [facility] 7t [place] [address] Care Team Providers Care Picking Machine Operator Name Role Phone Name, Rafiq JENKINS Primary Care Provider [phone] Jairon Rose RN Unavailable [phone] Reason for Visit * Reason Comments Med Refill Encounter Details Date Type Department Care Team ([facility] st Contact Info) Description 06/03/2023 Refill [facility]INE [address] [place] [address] Sabine Boyd MD [address] [place] [address] Tobacco use disorder, continuous Social History Tobacco [...] Description 05/13/2025 11:30 AM EDT Clinical Support [facility] [address] [place] [address] Krysta Huston, LUCAS documented as of this encounter Visit Diagnoses Diagnosis Tobacco use disorder, continuous Tobacco use disorder documented in this encounter Care Teams Picking Machine Operator Relationship Specialty Start Date End Date Name, MD Rafiq [address] [place] [address] PCP - General Family Medicine 12/16/15 Jairon Rose RN [address] [place] [address] Seaming InspectorHiv Prevention Specialist 02/05/25 documented as of this encounter
--- OUTSIDE RECORDS SUMMARY | 2025-03-18 17:53 | XMS_ITS | Encounter Summary ---
Author Organization [employer] [facility] Address [address] [place] [address] 7t [place] [address] Care Team Providers Care Senior Animator Name Role Phone Name, Rafiq JENKINS Primary Care Provider [phone] Jairon Rose RN Unavailable [phone] Reason for Visit * Reason Comments Med Refill Encounter Details Date Type Department Care Team ([facility] Contact Info) Description 08/03/2023 Refill [facility] MEDICINE [address] [place] [phone] Name, MD Rafiq [address] [place] [id number] Social History Tobacco Use Types Packs/Day Years [...] Upcoming Encounters Date Type Department Care Team ([facility] Contact Info) Description 05/13/2025 11:30 AM EDT Clinical Support [facility] [address] [place] [phone] Krysta Huston RN documented as of this encounter Visit Diagnoses Not on filedocumented in this encounter Care Teams Senior Animator Relationship Specialty Start Date End Date Name, MD Rafiq [address] [place] [address] PCP - General Family Medicine 12/16/15 Jairon Rose RN [address] [place] [address] Administrative AsstCircuit Board Assembler 02/05/25 documented as of this encounter
--- OUTSIDE RECORDS SUMMARY | 2025-03-18 17:53 | XMS_ITS | Encounter Summary ---
Author Organization [employer] [facility] Address [address] [place] [address] 7t [place] [address] Care Team Providers Care Card Seller Name Role Phone Name, Rafiq JENKINS Primary Care Provider [phone] Jairon Rose RN Unavailable [phone] Reason for Visit * Reason Comments Med Refill Encounter Details Date Type Department Care Team (Late Contact Info) Description 03/13/2023 Refill [facility] [address] [place] [address] Sabine Boyd MD [address] [place] [address] Social History Tobacco Use Types Packs/Day Years [...] Department Care Team (Late Contact Info) Description 05/13/2025 11:30 AM EDT Clinical Support [facility] [address] [place] [address] Krysta Huston, LUCAS documented as of this encounter Visit Diagnoses Not on filedocumented in this encounter Care Teams Card Seller Relationship Specialty Start Date End Date Name, MD Rafiq [address] [place] [address] PCP - General Family Medicine 12/16/15 Jairon Rose, LUCAS [address] [place] [address] Sprayer Automatic Spray MachinePalletizer 02/05/25 documented as of this encounter
--- OUTSIDE RECORDS SUMMARY | 2025-03-18 17:54 | XMS_ITS | Encounter Summary ---
Author Organization [employer] Address [address] [facility] 7t [place] [address] Care Team Providers Care Speedboat Operator Name Role Phone Name, Rafiq JENKINS Primary Care Provider [phone] Jairon Rose RN Unavailable [phone] Reason for Visit * Reason Onset Date Comments Med Refill 06/12/2024 Encounter Details Date Type Department Care Team ([facility] st Contact Info) Description 06/12/2024 Telephone [facility] MEDICINE [address] [place], [place] [phone] Name, MD Rafiq [address] [place] [address] Med Refill Social History Tobacco Use Types [...] PM EDT Mass pat checked and meds. Que for approval. * Telephone Encounter - Rah Ferrer - 06/12/2024 9:30 AM EDT TC from pt requesting medication refill. Medications needing refill : oxyCODONE-acetaminophen (Percocet) 5-325 MG tablet To be sent to: [id number] [address] [facility] documented in this encounter Plan of Treatment Upcoming Encounters Date Type Department Care Team (Late st Contact Info) Description 05/13/2025 11:30 AM EDT Clinical Support [facility] MED[facility]INE [address] [place] [phone] Krysta Huston RN documented as of this encounter Visit Diagnoses Not on filedocumented in this encounter Additional Health Concerns Assessment Noted Time PHQ-9 Depression Total Score: 0 02/05/20 24 2:30 PM EDT documented as of this encounter Care Teams Speedboat Operator Relationship Specialty Start Date End Date Name, MD Rafiq [address] [place] [address] PCP - General Family Medicine 12/16/15 Jairon oRse, LUCAS [address] [place] [address] Broadcast Maintenance TechnicianFuse Maker 02/05/25 documented as of this encounter
--- OUTSIDE RECORDS SUMMARY | 2025-03-18 17:54 | XMS_ITS | Clinical Summary ---
Author Organization [employer] Address [address] [place] [address] [address] [place] [address] Care Team Providers Care Oil Gas And Pipe Tester Name Role Phone Name, Rafiq JENKINS Primary Care Provider [phone] Jairon Rose RN Unavailable Allergies Active Allergy Reactions Criticality Noted Date Comments Ibuprofen 07/21/2015 Bleeding from bladder Naproxen 01/17/2016 Medications Diclofenac Sodium 1 % gel APPLY 2 GRAMS TO AFFECTED AREA TWICE A DAY 08/28/20 22 Active ergocalciferol (Vitamin D-2) 1.25 MG (63565 UT) capsule Take 1 capsule by mouth [...] MG EC tabletIndicatio ns:Coronary artery disease involving [place] coronary artery of [place] heart without angina pectoris TAKE 1 TABLET [...] for up to 28 days. 112 tablet 03/05/20 25 025 Active oxyCODONE-aceta minophen (Percocet) 5-325 MG tabletIndicatio ns:Chronic low back pain, unspecified back pain laterality, unspecified whether sciatica present Take 1 tablet by mouth every 6 (six) hours if needed for severe pain for up to 28 days. 112 tablet 02/03/20 25 025 Discontinued(R eorder (will not trigger notification to Pharmacy)) Active Problems Problem Noted Date Diagnosed Date Thoracic aortic aneurysm without rupture 025 care home (current) use of opiate analgesic 01/24 Abnormal [...] Overview (02/06/2024): He follows at [facility]. Cardiac catheterization was in January 2021 when [...] following with Tx plan per PCP and processing operator - continue working on lifestyle modifications, especially [...] Encounters Date Type Department Care Team Description 03/13/2025 10:30 AM EDT Office Visit [address] [address] Rafiq Grace MD Thoracic aortic aneurysm without rupture, unspecified part ([facility]) (Primary Dx) 03/13/2025 Travel 03/10/[address] [address] Lesli Antoine MA chartprep 03/06/2025 Patient Outreach [address] [address] Rafiq Grace MD Pre-visit Planning (SDOH screening completed on 01/30/25) 03/05/[address] [address] Rafiq Grace MD Chronic low back pain, unspecified back pain laterality, unspecified whether sciatica present 03/03/[address] [address] Rafiq Grace MD Care Management (C3- Follow up call # 1) 02/18/2025 Telephone [facility] [place] [address] Rafiq Grace MD Care Management ([facility]- Follow up call # 1/[facility]) 02/16/2025 Patient Outreach [facility] [place] [address] Rafiq Grace MD Care Coordination ([facility] Ruben telephone call outreach) 02/13/2025 Orders Only GENERIC EXTERNAL DATA DEPARTMENT Provider, [facility] External Data 02/11/2025 11:30 AM EDT Clinical Support [facility] [place] [address] Krysta Huston RN Chronic bilateral low back pain with left-sided sciatica (Primary Dx); care home (current) use of opiate analgesic 02/11/[address] [address] Krysta Huston RN PLANT OPERATIONS VICE PRESIDENT Renewal today 02/11/2025 Travel 02/09/[address] [address] Rafiq Grace MD Care Management ([facility]) 02/06/2025 Telephone [facility] [place] [address] Rafiq Grace MD Care Management ([facility]- initial assessment/enrollment) 02/06/2025 Population Health Risk Score [facility] (C3) Department [address] [place] [phone] Provider, Population Health Generic 02/04/2025 Patient Outreach [facility] [place] [address] Rafiq Grace MD Care Coordination ([facility] Rosaura Miranda telephone call outreach) 02/03/[address] [phone] Rafiq Grace MD Durable Medical Equipment (Pulse oxymeter) 02/03/2025 Orders Only [facility] External Provider, [facility] 02/02/2025 9:30 AM EDT Office Visit [address] [address] Sayda Hernandez MD Hypertension, unspecified type (Primary Dx); Chest pain, unspecified type; Chronic low back pain, unspecified back pain laterality, unspecified whether sciatica present; Dietary counseling; Exercise counseling; Class 2 severe obesity due to excess calories with serious comorbidity and body mass index (BMI) of 37.0 to 37.9 in adult ([facility]); Coronary artery disease involving [place] coronary artery of [place] heart with unstable angina pectoris ([facility]); Abnormal computed tomography angiography of heart 02/02/2025 Travel 02/01/2025 Refill [facility] [address] [place] [address] Rafiq Grace MD Hypercholesterolemia 01/30/2025 Patient Outreach [facility] [address] [place] [address] Rafiq Grace MD Care Coordination 01/30/2025 Patient Outreach [facility] [address] [place] [phone] Rafiq Grace MD Care Coordination (C3 [facility] telephone call outreach) 01/29/2025 Telephone [facility] [address] [place] [address] Lesli Antoine MA chartprep 01/26/2025 Patient Outreach [facility] [address] [place] [address] Rafiq Grace MD Transition Of Care (Tcm) (HDF- scheduled and SDOH screening positive and Tobacco screening positive) 01/24/2025 Refill [facility] [address] [place] [address] Rafiq Grace MD Mild intermittent asthma, unspecified whether complicated 01/22/2025 Patient Outreach [facility] [address] [place] [address] Rafiq Grace MD Care Coordination (C3 [facility] telephone call outreach) 01/22/2025 Telephone [facility] [address] [place] [phone] Rafiq Grace MD Care Management (C3- chart review) 01/20/2025 Telephone [facility] [address] [place] [address] Rafiq Grace, MD FMLA (I called the patient, regarding a FMLA application from [place] [employer]. I informed him that it has been faxed 3 times, and it is not going through. He agreed to have it mailed to [place], and he will pickling grader a copy at [facility], to keep for his records. ) 01/05/2025 Refill [facility] [address] [place] [address] Name, MD Rafiq Chronic low back pain, unspecified back pain laterality, unspecified whether sciatica present 12/31/2024 Refill [facility] [address] [place], [place] [phone] Latosha Car MD Mild intermittent asthma, unspecified whether complicated 12/25/2024 Orders Only [facility] External Provider, [facility] from Last 3 Months Immunizations Name Administration Dates Next Due HepB-CpG 05/15/2023,04/11/2023 Influenza injectable quadriv alent IIV4 with preservative 11/14/2019,08/28/2016 Influenza injectable quadriv alent preservative free 09/05/2023,08/18/2022,09/03/2017 Influenza, IIV3, injectable 09/10/2015,1 ,08/12/2013,08/20,11/02/2011,04/09/2010,09/07/2008 Influenza, seasonal, injecta ble, preservative free 08/11/2024 Novel [id number], preservative-free 01/26/2010 Pneumococcal Conjugate PCV 20 04/11/2023 [...] Sign Reading Time Taken Comments Blood Pressure 115/67 03/13/2025 10:37 AM EDT Pulse 64 03/13/2025 10:37 AM EDT Temperature 36.6 ??C (97.9 ??F) 03/13/2025 10:37 AM E DT Respiratory Rate 16 03/13/2025 10:37 AM EDT Oxygen Saturation 97% 03/13/2025 10:37 AM EDT Inhaled Oxygen Concentration - - Weight 100 kg (220 lb 6.4 oz) 03/13/2025 10:37 A M EDT Height 160 cm (5' 3 ) 03/13/2025 10:37 AM EDT Body Mass Index 39.04 03/13/2025 10:37 AM EDT Plan of Treatment Upcoming Encounters Date Type Department Care Team (Late st Contact Info) Description 05/13/2025 11:30 AM EDT Clinical Support [address] [address] Krysta Huston, RN Health Maintenance Due Date Last Done Comments CT Colonography 1965 Dental Prophylaxis 1967 FIT DNA/Cologuard 1967 FIT 1967 FOBT 1965 HIV Screening 1965 Sigmoidoscopy 1965 Dental Oral Exam 06/15/2023 12/15/2022 Dental X-Ray: Bitewings 12/16/2023 12/15/2022 COVID-19 Vaccine ( season) 2024 12/19/2021, 05/02/2021, 04/04/2021 Diabetes: Hemoglobin A1C 12/03/2024 024, 05/02/2023, 06/28/2022, Additional history exists Alcohol/Substance Use Screening 10/15/2025 10/15/2024 Dental X-Ray: Full Mouth 12/16/2025 12/15/2022 Colonoscopy 12/24/2025 12/24/2020 Colorectal Cancer Screening 12/24/2025 SDOH Screening 01/30/2026 01/30/2025 Depression Screening 02/02/2026 02/02/2025, 02/03/20 Tobacco Screening 03/13/2026 03/13/2025 Lipid Panel 02/13/2030 02/13/2025, 09/27, 02/06/2024, Additional history exists DTaP/Tdap/Td Vaccines (4 - [...] Procedure Name Priority Date/Time Associated Diagnosis Comments LIPID PANEL, STANDARD Routine 02/13/2025 10:10 AM EDT POCT FRANCI-14 URINE DRUG SCREEN Routine 02/11/2025 11:36 AM EDT Chronic bilateral low back pain with left-sided sciatica XR CHEST 2 VIEWS Routine 02/03/2025 10:4 2 AM EDT COMPREHENSIVE METABOLIC PANEL Routine 02/02/2025 10:18 AM EDT Hypertension, unspecified type CBC WITH AUTO DIFFERENTIAL Routine 02/02/2025 10:18 AM EDT Hypertension, unspecified type MR KNEE WO CONTRAST LEFT Routine 12/25/2024 7:05 PM EST HEPATITIS C ANTIBODY Routine 02/06/2024 12:22 PM [...] Relevant to Health Maintenance Results * (ABNORMAL) Lipid Panel, Standard (02/13/2025 10:10 AM EDT) Triglycerides 97 <150 mg/dL [facility] Comment:Desirable Triglyceri de: less than 150 mg/dLBorderline High Triglyceride 150-199 mg/dLHigh Triglyceride: 200-499 mg/dLVery High Triglyceride: greater than or equal to 5OO mg/dL Cholesterol 129 <200 mg/dL [facility] Comment:Desirable Cholestero l: less than 200 mg/dLBorderline High Cholesterol: 200-239 mg/dLHigh Cholesterol: greater than 239 mg/dL LDL Cholesterol Calculated 73 <100 mg/dL [facility] Comment:Desirable LDL: less than 100 mg/dLNear Optimal/Above Optimal LDL: 110- 129 mg/dLBorderline High LDL: 130-159 mg/dLHigh LDL: 160-189 mg/dLVery High LDL: greater than or equal to 190 mg/dL HDL Cholesterol 37(L) >40 mg/dL [facility] Comment:Desirable HDL: great er than 40 mg/dL Note: This HDL assay may give artificially low results in patients with liver disease. 02/13/2025 10:1 0 AM EDT 02/13/2025 10:10 AM EDT us Generic External Data Provider LAB BLOOD ORDERAB LES Final Result [facility] [address] [place] [phone] * POCT FRANCI-14 Urine Drug Screen (02/11/2025 11:36 AM EDT) Oxycodone Screen, Urine Positive Urine Urine specimen obtained by clean catch procedure / Unknown 02/11/2025 11:36 AM EDT Krysta Moon RN - 02/11/2025 11:36 AM EDT UTOX cup Lot#[id number] Exp. 07/15/26 Internal Pass Control us Rafiq Name MD POINT OF CARE TEST ENTER/EDIT OR DERABLES Final Result * XR Chest 2 Views (02/03/2025 10:42 AM EDT) Anatomical Region Laterality Modality Chest Radiographic Nova ging 02/03/2025 10:4 2 AM EDT Narrative 02/03/2025 11:00 AM EDT ? [facility] ?[address] ?[place] [address] ?XRay Report ? Signed ? Patient: Deidre Colon,T[place] ?MR#: M ?? [id number] ? : 1965 ?Acct:[id number] ? Age/Sex: 59 / M ?ADM Date: 02/03/25 ? Loc: HO.XRAY ? Attending Dr: Lisa Middleton MECHANIC FOREMAN ? Ordering Physician: Lisa Middleton NP ?? Date of Service: 02/03/25 ?? Procedure(s): XR chest 2V ?? Accession Number(s): [id number] ? cc: Rafiq Grace MD; Lisa Middleton [...] DD/ 1042 ? TD/TT: 02/03/25 1053 ? Manager Privacy: ? Procedure Note Donhajater, Image - 02/03/[address] [address] XRay Report Signed Patient: Erick Bejarano#: M [id number] : 1965Acct:[id number] Age/Sex: 59 / MADM Date: 02/03/25 Loc: HO.XRAY Attending Dr: Lisa Middleton NP Ordering Physician: Lisa Middleton NP Date of Service: 02/03/25 Procedure(s): XR chest 2V Accession Number(s): [id number] cc: Name,Rafiq JENKINS; Lisa Middleton NP EXAMINATION: [...] 02/03/25 1057 DD/ 1042 TD/TT: 02/03/25 1053 Manager Privacy: [facility] External Provider IMG XR PROCEDURES Final Result * (ABNORMAL) CBC auto differential (02/02/2025 10:18 AM EDT) White Blood Count 11.3(H) 4.8 - 10.8 X10*3/uL [facility] Red Blood Count 4.43(L) 4.60 - 5.80 X10*6/uL [facility] Hemoglobin 13.0(L) 14.0 - 18.0 g/dl [facility] Hematocrit 40.1(L) 42.0 - 52.0 % [facility] Mean Corpuscular Volume 90.5 80.0 - 98.0 fL [facility] Mean Corpuscular Hemoglobin 29.3 27.0 - 33.0 pg [facility] Mean Corpuscular HGB Conc 32.4 31.0 - 36.0 g/dl [facility] Red Cell Distribution Width 13.8 11.0 - 16.0 % [facility] Platelet Count 273 160 - 400 X10*3/uL [facility] Mean Platelet Volume 11.1 9.4 - 12.4 fL [facility] Neutrophils Percent Auto 63.5 45 - 73 % [facility] Imm Gran Pct Auto 0.4 0.0 - 0.4 % [facility] Lymphocytes Percent Auto 20.7 20 - 40 % [facility] Monocytes Percent Auto 12.2(H) 2 - 11 % [facility] Eosinophils Percent Auto 2.8 0 - 4 % [facility] Basophils Percent Auto 0.4 0 - 2 % [facility] NRBC Pct Auto 0.0 0.0 - 0.2 /100WBC [facility] Neutrophils Absolute Auto 7.1 2.0 - 8.3 x10*3/uL [facility] Imm Gran Abs Auto 0.05(H) 0.00 - 0.03 X10*3/uL [facility] Lymphocytes Absolute Auto 2.3 1.2 - 4.9 X10*3/uL [facility] Monocytes Absolute Auto 1.4(H) 0.1 - 1.2 X10*3/uL [facility] Eosinophils Absolute Auto 0.3 0.0 - 0.4 X10*3/uL [facility] Basophils Absolute Auto 0.1 0.0 - 0.2 X10*3/uL [facility] NRBC Abs Auto 0.000 0.0 - 0.012 X10*3/uL [facility] Blood Venous blood specimen / Unknown 02/02/2025 10:18 AM EDT 02/02/2025 11:19 AM EDT us Sayda Hernandez MD LAB BLOOD ORDERABLES Final Resul t [facility] [address] [place] [address] [phone] * (ABNORMAL) Comprehensive Metabolic Panel (02/02/2025 10:18 AM EDT) Sodium 142 135 - 145 mmol/L [facility] Potassium 4.0 3.3 - 5.1 mmol/L [facility] Chloride 114(H) 96 - 108 mmol/L [facility] Carbon Dioxide 24 22 - 29 mmol/L [facility] Anion Gap 8(L) 12 - 20 [facility] Urea Nitrogen (BUN) 14 9 - 16 mg/dL [facility] Creatinine, Serum 0.80 0.5 - 1.4 mg/dL [facility] Estimated Glomerular Filt Rate >60 [facility] Comment:Chronic Kidney Disea se: Estimated GFR < 60 mL/min/[id number] Kidney Disease: Estimated GFR < 15 mL/min/1.73m2 Glucose 87 60 - 115 mg/dL [facility] Calcium 8.8 8.4 - 10.2 mg/dL [facility] Bilirubin, Total 0.8 0.0 - 1.0 mg/dL [facility] Aspartate Amino Transferase 28 5 - 37 U/L [facility] Alanine Aminotransferase 53(H) 0 - 40 U/L [facility] Total Protein 7.0 6.5 - 8.0 g/dL [facility] Albumin Level 3.8 3.5 - 5.0 g/dL [facility] Alkaline Phosphatase 80 39 - 117 U/L [facility] Blood Venous blood specimen / Unknown 02/02/2025 10:18 AM EDT 02/02/2025 11:19 AM EDT us Sayda Hernandez MD LAB BLOOD ORDERABLES Final Resul t [facility] [address] [place] [phone] * MR Knee w/o Contrast Left (12/25/2024 7:05 PM EST) Anatomical Region Laterality Modality Magnetic Resonan ce 12/25/2024 7:05 PM EST Narrative 12/26/2024 8:17 AM EST ? [facility] ?[address] ?[place] [address] ? Magnetic Resonance Report ? Signed ? Patient: Deidre Colon,[place] ?MR#: M ?? [id number] ? : 1965 ?Acct:[id number] ? Age/Sex: 59 / M ?ADM Date: 12/25/24 ? Loc: HO.MRI ? Attending Dr: Kristan PETTY ? Ordering Physician: Kristan Oconnell ?? Date of Service: 12/25/24 ?? Procedure(s): MR knee LT wo con ?? Accession Number(s): [id number] ? cc: Kristan Oconnell; Name,Rafiq JENKINS ? [...] DD/ 1905 ? TD/TT: 12/25/24 1925 ? Manager Privacy: ? Procedure Note Osmanter, Image - 12/26/2024 [place] [address] Magnetic Resonance Report Signed Patient: Latrice BejaranoR#: M [id number] : 1965Acct:[id number] Age/Sex: 59 / MADM Date: 12/25/24 Loc: HO.MRI Attending Dr: Kristan PETTY Ordering Physician: Kristan Oconnell Date of Service: 12/25/24 Procedure(s): MR knee LT wo con Accession Number(s): [id number] cc: Kristan Oconnell; Name,Rafiq JENKINS EXAMINATION: MRI [...] by: Nicolas Gavin MD 12/26/2024 08:14 AM [facility] Dictated By: Nicolas Gavin MD Signed By: <Electronically signed by Nicolas Gavin MD in OV> 12/26/24 0814 DD/ 04 TD/TT: 12/25/241924 Manager Privacy: [facility] External Provider IMG MRI PROCEDURES Final Result * Hepatitis C Ab (02/06/2024 12:22 PM EDT) Hepatitis C Antibody Nonreactive Nonreactive [facility] Comment:Antibodies to HCV no t detected; does not exclude early acuteHCV infection. Blood Venous blood specimen / Unknown 02/06/2024 12:22 PM EDT 02/06/2024 1:11 PM EDT Rafiq Grace MD LAB BLOOD ORDERABLES Final Resul t [facility] [address] [place] [address] [phone] * POCT HGB A1C (12/03/2023 4:16 PM EST) Pathologist [facility] Hemoglobin A1C 5.6 4.0 - 6.0 % Other 12/03/2023 4:16 PM EST Rafiq Grace MD POINT OF CARE TEST ENTER/EDIT OR DERABLES Final Result * (ABNORMAL) Lung Cancer Screning (07/03/2023) Pathologist [facility] Lung CT LUNGRADS 0(A) LUNGRADS 1, LUNGRADS 2 Anatomical Region Laterality Modality Other Lisa Middleton HEALTH MAINTENANCE Final Resul t * Colonoscopy (12/24/2020 12:59 PM EST) [facility] Colonoscopy Normal Normal Narrative Danielle Orellana - 12/24/2020 12:59 PM EST Recommended 5 year follow up Historical Provider HEALTH MAINTENANCE Final Result from Last 3 Months or Most Recently Relevant to Health Maintenance Insurance [facility] C3 DENTAL-[facility] MEDICAID STAND ADULT DENTAL - HSN FULL (MEDICAID) DENTAL - [employer] DENTAL Care Teams Oil Gas And Pipe Tester Relationship Specialty Start Date End Date Name, MD Rafiq [address] [place] [address] PCP - General Family Medicine 12/16/15 Jairon Rose, LUCAS [address] [place] [address] Public Health Outreach WorkerMobile Therapist 02/05/25
--- OUTSIDE RECORDS SUMMARY | 2025-03-18 17:54 | XMS_ITS | Clinical Summary ---
Author Organization [facility] [facility] Address [address] [place] [address] Care Team Providers Care Logistics Support Name Role Phone Name, Rafiq JENKINS Primary Care Provider Surgical History Surgery Date Site/Laterality Comments OTHER [...] COVID-19 Vaccine ( season) 2024 Influenza Vaccine (Season Ended) 2025 09/10/2015, 09/09/2014, 08/12/2013, Additional history exists HIB Vaccines [...] age to complete this topic Meningococcal B Vaccine Aged Out No l onger eligible based on patient's age to complete this topic RSV Immunization Patients Under 20 months Aged Out No longer eligible based on patient's age to complete this topic Varicella Vaccines Aged Out No longer eligible based on patient's age to complete this topic Care Teams Logistics Support Relationship Specialty Start Date End Date Name, MD Rafiq [address] [place], [place] PCP - General Internal Medicine 07/30/08
--- OUTSIDE RECORDS SUMMARY | 2025-03-18 17:54 | XMS_ITS | Encounter Summary ---
Author Organization [employer] Address [address] [facility] [address] [place] [address] Care Team Providers Care Speech Therapist Technician Name Role Phone Name, Rafiq JENKINS Primary Care Provider [phone] Jairon Rose RN Unavailable [phone] Encounter Details Date Type Department Care Team (Latest Contact Info) Description 03/13/2025 Travel Social History Tobacco Use Types Packs/Day [...] t he electric, gas, oil or water [employer] threatened to shut off services in your [...] Support [facility] [address] [place] [address] Krysta Huston, LUCAS documented as of this encounter Visit Diagnoses Not on filedocumented in this encounter Additional Health Concerns Assessment Noted Time PHQ-9 Depression Total Score: 10 025 11:59 AM EDT documented as of this encounter Care Teams Speech Therapist Technician Relationship Specialty Start Date End Date Name, MD Rafiq [address] [place] [address] PCP - General Family Medicine 12/16/15 Jairon Rose, LUCAS [address] [place] [address] Psychiatric RnManager Perioperative 02/05/25 documented as of this encounter
--- OUTSIDE RECORDS SUMMARY | 2025-03-18 17:54 | XMS_ITS | Encounter Summary ---
Author Organization [facility] Address [address] [facility] 7t [place] [address] Care Team Providers Care Migrant Leader Name Role Phone Name, Rafiq JENKINS Primary Care Provider [phone] Jairon Rose RN Unavailable [phone] Reason for Visit * Reason Comments Follow-up Encounter Details Date Type Department Care Team ([facility] st Contact Info) Description 03/13/2025 10:30 AM EDT Office Visit [facility] MEDICINE [address] [place], [place] [phone] Name, MD Rafiq [address] [place] [address] Thoracic aortic aneurysm without rupture, unspecified part (CMS/HCC) (Primary Dx) Social History Tobacco Use Types [...] Mass Index 39.04 03/13/2025 10:37 AM EDT documented in this encounter Progress Notes * Rafiq Grace MD - 03/13/2025 10:30 AM EDT Subjective Patient ID: Trenton Elaine is a 59 y.o. male who presents for Follow-up. Patient comes for a follow up visit. He denies any chest pain or SOB. Since his last appt he was hospitalized at [facility] with chest pain He was found to have an aortic aneurysm. He is now following at [facility] thoracic surgery with plan to do surgery in coming weeks. Summary of the recent hospitalization is written below: [facility] (01/22/25 - 01/25/25) Patient with PMH of CAD presented with severe radiating chest pains. 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 EKG without ischemic changes. Patient initiated on nicardipine drip, and further transitioned to oral antihypertensives. Patient discharged to home and instructed to follow up with vascular surgery. Medication changes that occurred during hospitalization include: ?? Added ?? None ?? Changed ?? Amlodipine increased from 2.5 mg to 5 mg once daily ?? Discontinued ?? 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 EKG nonischemic, trop negative x2. CT showing acute penetrating atherosclerotic ulcer ora saccular aneurysm with mural thrombus in distal thoracic aortic arch. Vascular surgery following. Currently pt without severe/tearing chest/back pain to suggest aneurysm or dissection. Plan: -Vascular surgery signed off, will follow-up outpatient follow-up which is scheduled on February 19 Patient'sblood pressure is not controlled, amlodipine dose increased to 5 mg from 2.5 daily Continue aspirin, statin -Continue home metoprolol, Imdur Patient is for advised to follow-up with vascular surgery as outpatient CAD (coronary artery disease) (I25.10): CAD s/p SAQIB to LCX and RCA (2009, 2015, 2020) and SAQIB to LAD in 2021. Followed by [facility]. Per last Cardiology consult note in 2022, his EF at that time was preserved, though we have no Echos on file. Plan: -Continue atorvastatin 80 mg. Also on Praluent and ezetimibe 10mg at home which patient/family can bring in. -increased amlodipine to 5 mg -Continue isosorbide mononitrate 60 mg -Continue metoprolol tartrate 100 mg twice da Review of Systems Constitutional: Negative for chills, fatigue and fever. HENT: Negative for sore throat. Respiratory: Negative for cough, chest tightness and shortness of breath. Cardiovascular: Negative for chest pain, palpitations and leg swelling. Gastrointestinal: Negative for abdominal pain and blood in stool. Visit Vitals BP 115/67 (BP Location: Left arm, Patient Position: Sitting, BP Cuff Size: Large adult) Pulse 64 Temp 97.9 ??F (36.6 ??C) (Oral) Resp 16 Ht 5' 3 (1.6 m) Wt 220 lb 6.4 oz (100 kg) SpO2 97% BMI 39.04 kg/m?? Smoking Status Former BSA 2.11 m?? Objective Physical Exam Constitutional: Appearance: Normal appearance. Cardiovascular: Rate and Rhythm: Normal rate and regular rhythm. Heart sounds: No murmur heard. Pulmonary: Effort: Pulmonary effort is normal. No respiratory distress. Breath sounds: No wheezing, rhonchi or rales. Abdominal: Palpations: Abdomen is soft. Tenderness: There is no abdominal tenderness. Musculoskeletal: Right lower leg: No edema. Left lower leg: No edema. Neurological: Mental Status: He is alert. Latest Reference Range & Units 02/02/25 10:18 Glucose 60 - 115 mg/dL 87 Urea Nitrogen (BUN) 9 - 16 mg/dL 14 Creatinine, Serum 0.5 - 1.4 mg/dL 0.80 Sodium 135 - 145 mmol/L 142 Potassium 3.3 - 5.1 mmol/L 4.0 Chloride 96 - 108 mmol/L 114 (H) Carbon Dioxide 22 - 29 mmol/L 24 Calcium 8.4 - 10.2 mg/dL 8.8 Albumin Level 3.5 - 5.0 g/dL 3.8 Bilirubin, Total 0.0 - 1.0 mg/dL 0.8 AST 5 - 37 U/L 28 ALT 0 - 40 U/L 53 (H) Anion Gap 12 - 20 8 (L) Total Protein 6.5 - 8.0 g/dL 7.0 Red Blood Count 4.60 - 5.80 X10*6/uL 4.43 (L) Hemoglobin 14.0 - 18.0 g/dl 13.0 (L) Hematocrit 42.0 - 52.0 % 40.1 (L) Mean Corpuscular Volume 80.0 - 98.0 fL 90.5 Mean Corpuscular Hemoglobin 27.0 - 33.0 pg 29.3 Mean Corpuscular HGB Conc 31.0 - 36.0 g/dl 32.4 Red Cell Distribution Width 11.0 - 16.0 % 13.8 Platelet Count 160 - 400 X10*3/uL 273 Eosinophils Percent Auto 0 - 4 % 2.8 Lymphocytes Absolute Auto 1.2 - 4.9 X10*3/uL 2.3 Basophils Absolute Auto 0.0 - 0.2 X10*3/uL 0.1 Monocytes Absolute Auto 0.1 - 1.2 X10*3/uL 1.4 (H) Neutrophils Absolute Auto 2.0 - 8.3 x10*3/uL 7.1 Neutrophils Percent Auto 45 - 73 % 63.5 Basophils Percent Auto 0 - 2 % 0.4 Eosinophils Absolute Auto 0.0 - 0.4 X10*3/uL 0.3 Lymphocytes Percent Auto 20 - 40 % 20.7 Monocytes Percent Auto 2 - 11 % 12.2 (H) Imm Gran Abs Auto 0.00 - 0.03 X10*3/uL 0.05 (H) Imm Gran Pct Auto 0.0 - 0.4 % 0.4 Alkaline Phosphatase 39 - 117 U/L 80 Estimated Glomerular Filt Rate >60 Mean Platelet Volume 9.4 - 12.4 fL 11.1 NRBC Abs Auto 0.0 - 0.012 X10*3/uL 0.000 NRBC Pct Auto 0.0 - 0.2 /100WBC 0.0 White Blood Count 4.8 - 10.8 X10*3/uL 11.3 (H) (H): Data is abnormally high (L): Data is abnormally low Latest Reference Range & Units 02/13/25 10:10 Cholesterol <200 mg/dL 129 HDL Cholesterol >40 mg/dL 37 (L) LDL Cholesterol Calculated <100 mg/dL 73 Triglycerides <150 mg/dL 97 (L): Data is abnormally low Assessment/Plan Diagnoses and all orders for this visit: Thoracic aortic aneurysm without rupture, unspecified part (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 Patient is following with vascular surgery at [facility] He is recommended to avoid heavy lifting Keep using all his meds and stay away from tobacco Call 911 for recurrent chest pain Keep his appt with vascular and cardi, documented in this encounter Plan of Treatment Upcoming Encounters Date Type Department Care Team (Late st Contact Info) Description 05/13/2025 11:30 AM EDT Clinical Support [facility] MEDICINE [address] [place] [address] Krysta Huston, RN documented as of this encounter Visit Diagnoses Diagnosis Thoracic aortic aneurysm without rupture, unspecified part (CMS/[facility])- Primary documented in this encounter Additional Health Concerns Assessment Noted Time PHQ-9 Depression Total Score: 10 025 11:59 AM EDT documented as of this encounter Care Teams Migrant Leader Relationship Specialty Start Date End Date Rafiq Grace MD [address] [place] [address] PCP - General Family Medicine 12/16/15 Jairon Rose, LUCAS [address] [place] [address] Brim Welt Sewing Machine OperatorHybrid Car Mechanic 02/05/25 documented as of this encounter
--- OUTSIDE RECORDS SUMMARY | 2025-03-18 17:54 | XMS_ITS | Encounter Summary ---
Author Organization [employer] Address [address] [facility] [address] [place] [address] Care Team Providers Care Director Of Institutional Giving Name Role Phone Name, Rafiq JENKINS Primary Care Provider [phone] Jairon Rose RN Unavailable [phone] Encounter Details Date Type Department Care Team ([facility] st Contact Info) Description 01/15/2024 Telephone [facility] MEDICINE [address] [place], [place] [phone] Name, MD Rafiq [address] [place] [address] Social History Tobacco Use Types Packs/Day Years [...] Alcaraz RN - 01/16/2024 11:46 AM EST [facility] surgical notes re: excision of lipoma on posterior neck sent to medical records. * Telephone Encounter - Rah Ferrer - 01/15/2024 10:28 AM EST Tc from patient calling to inform the PCP the patient had a procedure done on the neck on 01/15 at [facility] for skin lumps and was done by was the doctor who preformed the procedure documented in this encounter Plan of Treatment Upcoming Encounters Date Type Department Care Team (Late st Contact Info) Description 05/13/2025 11:30 AM EDT Clinical Support [facility] MEDICINE [address] [place] [address] Krysta Huston, LUCAS documented as of this encounter Visit Diagnoses Not on filedocumented in this encounter Care Teams Director Of Institutional Giving Relationship Specialty Start Date End Date Name, MD Rafiq [address] [place] [address] PCP - General Family Medicine 12/16/15 Jairon Rose, LUCAS [address] [place] [address] Yarn ComberDirector Of Strategy & Mobile 02/05/25 documented as of this encounter
--- OUTSIDE RECORDS SUMMARY | 2025-03-18 17:54 | XMS_ITS | Encounter Summary ---
Author Organization [employer] [facility] Address [address] [place] [address] 7t [place] [address] Care Team Providers Care Patient Registration Clerk Name Role Phone Name, Rafiq JENKINS Primary Care Provider [phone] Jairon Rose RN Unavailable [phone] Encounter Details Date Type Department Care Team ([facility] Contact Info) Description 12/29/2022 Abstract [facility] ADULT DENTAL [address] [place] [address] Dario Lynch DDS [address] [place] [address] Social History Tobacco Use Types Packs/Day Years [...] Upcoming Encounters Date Type Department Care Team ([facility] Contact Info) Description 05/13/2025 11:30 AM EDT Clinical Support [facility] MEDICINE [address] [place] [address] Betzaida, Krysta, RN documented as of this encounter Visit Diagnoses Not on filedocumented in this encounter Care Teams Patient Registration Clerk Relationship Specialty Start Date End Date Name, MD Rafiq [address] [place] [address] PCP - General Family Medicine 12/16/15 Jairon Rose RN [address] [place] [address] Tire Repair MechanicGrants Administrator 02/05/25 documented as of this encounter
--- OUTSIDE RECORDS SUMMARY | 2025-03-18 17:54 | XMS_ITS | Encounter Summary ---
Author Organization [employer] Address [address] 7t [place] [address] Care Team Providers Care Dry Cell Tester Name Role Phone Name, Rafiq JENKINS Primary Care Provider [phone] Jairon Rose RN Unavailable [phone] Reason for Visit * Reason Comments Med Change Request Encounter Details Date Type Department Care Team ([facility] Contact Info) Description 09/24/2023 Refill [facility] MEDICINE [address] [place], [place] [phone] Name, MD Rafiq [address] [place] [address] Social History Tobacco Use Types Packs/Day Years [...] Description 05/13/2025 11:30 AM EDT Clinical Support [facility] MEDICINE [address] [place] [phone] Krysta Huston RN documented as of this encounter Visit Diagnoses Not on filedocumented in this encounter Care Teams Dry Cell Tester Relationship Specialty Start Date End Date Name, MD Rafiq [address] [place] [address] PCP - General Family Medicine 12/16/15 Jairon Rose, RN [address] [place] [address] Metallurgical Engineering TechnicianCompliance Nurse 02/05/25 documented as of this encounter
== END 2025-03-18 15:39 | disposition home or self-care (01) ==
LOC: HO.HPSW 15:05
PROVIDERS: PCP Internal Medicine Geriatric Medicine; Visit Provider Nurse Practitioner Family
DX: J44.9 Chronic obstructive pulmonary disease, unspecified (principal); R05.9 Cough, unspecified
CPT/HCPCS: 99214

== ENCOUNTER → 2025-03-18 15:05 | Outpatient (BNVA) | payer MEDICAID, SELFPAY | PROVIDERS: PCP Internal Medicine Geriatric Medicine; Visit Provider Nurse Practitioner Family | DX: G47.33 Obstructive sleep apnea (adult) (pediatric) (principal); J44.89 Other specified chronic obstructive pulmonary disease; Z99.89 Dependence on other enabling machines and devices; Z87.891 Personal history of nicotine dependence | CPT/HCPCS: 99212 ==

== ENCOUNTER → 2025-03-24 07:57 | Outpatient (REF) | payer MEDICAID, SELFPAY ==
--- OUTSIDE RECORDS SUMMARY | 2025-03-24 08:01 | XMS_ITS | Encounter Summary ---
Author Organization [employer] [facility] Address [address] [facility] 7t [place] [address] Care Team Providers Care Events Administrative Assistant Name Role Phone Name, Rafiq JENKINS Primary Care Provider [phone] Jairon Rose RN Unavailable [phone] Encounter Details Date Type Department Care Team ([facility] Contact Info) Description 04/27/2023 Abstract [facility] MEDICINE [address] [place], [place] [phone] Name, MD Rafiq [address] [place] [address] Social History Tobacco Use Types Packs/Day Years [...] Upcoming Encounters Date Type Department Care Team ([facility] Contact Info) Description 05/13/2025 11:30 AM EDT Clinical Support [facility] MEDICINE [address] [place] [address] Krysta Huston RN documented as of this [...] on filedocumented in this encounter Care Teams Events Administrative Assistant Relationship Specialty Start Date End Date Name, MD Rafiq [address] [place] [address] PCP - General Family Medicine 12/16/15 Jairon Rose RN [address] [place] [address] Curb HopPersonnel Representative 02/05/25 documented as of this encounter
--- OUTSIDE RECORDS SUMMARY | 2025-03-24 08:02 | XMS_ITS | Encounter Summary ---
Author Organization [employer] [facility] Address [address] [place] [address] 7t [place] [address] Care Team Providers Care Porcelain Enamel Sprayer Name Role Phone Name, Rafiq JENKINS Primary Care Provider [phone] Jairon Rose RN Unavailable [phone] Reason for Visit * Reason Comments Med Refill Encounter Details Date Type Department Care Team ([facility] Contact Info) Description 08/03/2023 Refill [facility] MEDICINE [address] [place] [phone] Name, MD Rafiq [address] [place] [address] Social History Tobacco Use Types Packs/Day Years [...] Upcoming Encounters Date Type Department Care Team ([facility] Contact Info) Description 05/13/2025 11:30 AM EDT Clinical Support [facility] MEDICINE [address] [place] [phone] Krysta Huston RN documented as of this encounter Visit Diagnoses Not on filedocumented in this encounter Care Teams Porcelain Enamel Sprayer Relationship Specialty Start Date End Date Name, MD Rafiq [address] [place] [address] PCP - General Family Medicine 12/16/15 Jairon Rose RN [address] [place] [address] Historic Clothing And Costume MakerGeodetic Computator 02/05/25 documented as of this encounter
--- OUTSIDE RECORDS SUMMARY | 2025-03-24 08:02 | XMS_ITS | Encounter Summary ---
Author Organization [employer] Address [address] [facility] [address] [place] [address] Care Team Providers Care Oxyacetylene Cutter Name Role Phone Name, Rafiq JENKINS Primary Care Provider [phone] Jairon Rose RN Unavailable [phone] Encounter Details Date Type Department Care Team ([facility] st Contact Info) Description 01/15/2024 Telephone [facility] MEDICINE [address] [place], [place] [phone] Name, MD Rafiq [address] [place] [address] Social History Tobacco Use Types Packs/Day Years [...] 11:46 AM EST [facility] surgical notes re: excision of lipoma on posterior neck sent to medical records. * Telephone Encounter - Rah Ferrer - 01/15/2024 10:28 AM EST Tc from patient calling to inform the PCP the patient had a procedure done on the neck on 01/15 at [facility] for skin lumps and was done by was the doctor who preformed the procedure documented in this encounter Plan of Treatment Upcoming Encounters Date Type Department Care Team (Late st Contact Info) Description 05/13/2025 11:30 AM EDT Clinical Support [facility] MEDICINE [address] [place] [address] Krysta Huston, LUCAS documented as of this encounter Visit Diagnoses Not on filedocumented in this encounter Care Teams Oxyacetylene Cutter Relationship Specialty Start Date End Date Name, MD Rafiq [address] [place] [address] PCP - General Family Medicine 12/16/15 Jairon Rose, LUCAS [address] [place] [address] Anaesthetic TechnicianSheet Metal Work Furnace Installer 02/05/25 documented as of this encounter
--- OUTSIDE RECORDS SUMMARY | 2025-03-24 08:02 | XMS_ITS | Encounter Summary ---
Author Organization [employer] Address [address] [place] [address] Care Team Providers Care Survey Project Manager Name Role Phone Name, Rafiq JENKINS Primary Care Provider [phone] Jairon Rose RN Unavailable [phone] Reason for Visit * Reason Comments Med Change Request Encounter Details Date Type Department Care Team ([facility] Contact Info) Description 09/24/2023 Refill [facility] MEDICINE [address] [place], [place] [phone] Name, MD Rafiq [address] [place] [address] Social History Tobacco Use Types Packs/Day Years [...] 11:30 AM EDT Clinical Support [facility] MEDICINE [address] [place] [address] Krysta Huston RN documented as of this encounter Visit Diagnoses Not on filedocumented in this encounter Care Teams Survey Project Manager Relationship Specialty Start Date End Date Name, MD Rafiq [address] [place] [address] PCP - General Family Medicine 12/16/15 Jairon Rose, RN [address] [place] [phone] Manager TelemetryPostbed Stitcher 02/05/25 documented as of this encounter
--- OUTSIDE RECORDS SUMMARY | 2025-03-24 08:02 | XMS_ITS | Encounter Summary ---
Author Organization [employer] [facility] Address [address] [facility] 7t [place] [address] Care Team Providers Care Cardiac Specialist Name Role Phone Name, Rafiq JENKINS Primary Care Provider [phone] Jairon Rose RN Unavailable [phone] Reason for Visit * Reason Onset Date Comments Care Management 03/19/2025 C3CM- F/U Call # 2 Encounter Details Date Type Department Care Team ([facility] st Contact Info) Description 03/19/2025 Telephone [facility] MEDICINE [address] [place], [place] [phone] Name, MD Rafiq [address] [place] [address] Care Management (C3CM- F/U Call # 2) Social History Tobacco Use Types Packs/Day Years [...] Telephone Encounter - Jairon Rose RN - 03/19/2025 1:36 PM EDT JANETT Rose RN and KIMBERLY Kaplan placed outbound call to patient. Patient's name, and address confirmed. Patient states is doing well with no recent illnesses or emergency room visits. Patient reports that he's currently waiting on plan of care from vascular surgeon's office. Patient reports that he's also waiting on to complete US and stress test on 03/24/25. CM advised patient to keep appointm ent. Patient reports having carpal tunnel surgery on his right hand in December. Patient reports that his right-hand hurts even to move fingers and some difficulty holding heavy items. Patient reports that he mentioned this to PCP during visit on 03/13/25 but was more concerned with the thoracic aortic aneurysm. CM advised patient to f/u with hand surgeon and pain management. Patient reports that he attended [facility] pulmonology appointment yesterday in [place] and was prescribed antibiotics for which pt already picked up rx and will start today. Patient reports waiting on SSI and social securityrespond. Patient also reports that he's going to fill disabled parking placard form and will give to PCP to fill out the rest. Patient agreed to LTSS referral. No further questions or concerns. CM reinforced direct contact information for any additional questions or concerns. Education provided on [facility]. Patient provided with after-hours line for [facility], , which offer night time triage service and option to transfer to operational assistant provider if needed. Patient verbalizes understanding, and able to r epeat back to filing writer. A follow up call will be placed within 10 days, patient agrees with plan. documented in this encounter Plan of Treatment Upcoming Encounters Date Type Department Care Team (Late st Contact Info) Description 05/13/2025 11:30 AM EDT Clinical Support [facility] MEDICINE [address] [place] [address] Krysta Huston RN documented as of this encounter Visit Diagnoses Not on filedocumented in this encounter Additional Health Concerns Assessment Noted Time PHQ-9 Depression Total Score: 10 025 11:59 AM EDT documented as of this encounter Care Teams Cardiac Specialist Relationship Specialty Start Date End Date Name, MD Rafiq [address] [place] [address] PCP - General Family Medicine 12/16/15 Jairon Rose, LUCAS [address] [place] [address] Consumer AttorneyEmployee Benefits Specialist 02/05/25 documented as of this encounter
--- OUTSIDE RECORDS SUMMARY | 2025-03-24 08:02 | XMS_ITS | Encounter Summary ---
Author Organization [employer] [facility] Address [address] [facility] 7t [place] [address] Care Team Providers Care Software Engineering Supervisor Name Role Phone Name, Rafiq JENKINS Primary Care Provider [phone] Jairon Rose RN Unavailable [phone] Reason for Visit * Reason Comments Med Refill Encounter Details Date Type Department Care Team ([facility] st Contact Info) Description 06/07/2023 Refill [facility] MEDICINE [address] [place], [place] [phone] Name, MD Rafiq [address] [place] [address] Tobacco use disorder, continuous Social History Tobacco [...] Description 05/13/2025 11:30 AM EDT Clinical Support [facility] MEDICINE [address] [place] [address] Krysta Huston, LUCAS documented as of this encounter Visit Diagnoses Diagnosis Tobacco use disorder, continuous Tobacco use disorder documented in this encounter Care Teams Software Engineering Supervisor Relationship Specialty Start Date End Date Name, MD Rafiq [address] [place] [address] PCP - General Family Medicine 12/16/15 Jairon Rose, LUCAS [address] [place] [address] Cross Cut SawyerPhosphoric Acid Operator 02/05/25 documented as of this encounter
--- OUTSIDE RECORDS SUMMARY | 2025-03-24 08:02 | XMS_ITS | Clinical Summary ---
Author Organization [employer] Address [address] [place] [address] 7t [place] [address] Care Team Providers Care Maple Products Maker Name Role Phone Name, Rafiq JENKINS Primary Care Provider [phone] Jairon Rose RN Unavailable [phone] Allergies Active Allergy Reactions Criticality Noted Date Comments Ibuprofen 07/21/2015 Bleeding from bladder Naproxen 01/17/2016 Medications Diclofenac Sodium 1 % gel APPLY 2 GRAMS TO AFFECTED AREA TWICE A DAY 08/28/20 22 Active ergocalciferol (Vitamin D-2) 1.25 MG (13353 UT) capsule Take 1 capsule by mouth [...] MG EC tabletIndicatio ns:Coronary artery disease involving suquamish coronary artery of suquamish heart without angina pectoris TAKE 1 TABLET [...] Date Thoracic aortic aneurysm without rupture 025 senior care (current) use of opiate analgesic 01/24 Abnormal [...] disease) 12/01/2016 Overview (02/06/2024): He follows at [facility]. 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 - continue working on lifestyle modifications, especially [...] Encounters Date Type Department Care Team Description 03/19/[address] [address] Rafiq Grace MD Care Management ([facility]- F/U Call # 2) 03/13/2025 10:30 AM EDT Office Visit [address] [address] Rafiq Grace MD Thoracic aortic aneurysm without rupture, unspecified part ([facility]) (Primary Dx) 03/13/2025 Travel 03/10/[address] [address] Lesli Antoine MA chartprep 03/06/2025 Patient Outreach [address] [address] Rafiq Grace MD Pre-visit Planning ([facility] screening completed on 01/30/25) 03/05/[address] [address] Rafiq Grace MD Chronic low back pain, unspecified back pain laterality, unspecified whether sciatica present 03/03/[address] [address] Rafiq Grace MD Care Management ([facility]- Follow up call # 1) 02/18/[address] [address] Rafiq Grace MD Care Management ([facility]- Follow up call # 1/LV) 02/16/2025 Patient Outreach [address] [phone] Rafiq Grace MD Care Coordination ([facility] telephone call outreach) 02/13/2025 Orders Only GENERIC EXTERNAL DATA DEPARTMENT Provider, Generic External Data 02/11/2025 11:30 AM EDT Clinical Support [address] [address] Krysta Huston RN Chronic bilateral low back pain with left-sided sciatica (Primary Dx); senior care (current) use of opiate analgesic 02/11/[address] [address] Krysta Huston RN CONSUMER AFFAIRS MANAGER Renewal today 02/11/2025 Travel 02/09/[address] [address] Rafiq Grace MD Care Management ([facility]) 02/06/[address] [phone] Rafiq Grace MD Care Management ([facility]- initial assessment/enrollment) 02/06/2025 Population Health Risk Score [facility] Department [address] [place] [phone] Provider, Population Health Generic 02/04/2025 Patient Outreach [address] [address] Rafiq Grace MD Care Coordination ([facility] Rosaura Miranda telephone call outreach) 02/03/[address] [phone] Rafiq Grace MD Durable Medical Equipment (Pulse oxymeter) 02/03/2025 Orders Only [facility] External Provider, [facility] 02/02/2025 9:30 AM EDT Office Visit [facility] [address] [place] [phone] Sayda Hernandez MD Hypertension, unspecified type (Primary Dx); Chest pain, unspecified type; Chronic low back pain, unspecified back pain laterality, unspecified whether sciatica present; Dietary counseling; Exercise counseling; Class 2 severe obesity due to excess calories with serious comorbidity and body mass index (BMI) of 37.0 to 37.9 in adult ([facility]); Coronary artery disease involving suquamish coronary artery of suquamish heart with unstable angina pectoris ([facility]); Abnormal computed tomography angiography of heart 02/02/2025 Travel 02/01/2025 Refill [facility] [address] [place] [address] Rafiq Grace MD Hypercholesterolemia 01/30/2025 Patient Outreach [address] [phone] Rafiq Grace MD Care Coordination 01/30/2025 Patient Outreach [address] [phone] Rafiq Grace MD Care Coordination ([facility] telephone call outreach) 01/29/[address] [phone] Lesli Antoine MA chartprep 01/26/2025 Patient Outreach [address] [address] Rafiq Grace MD Transition Of Care (Tcm) (HDF- scheduled and SDOH screening positive and Tobacco screening positive) 01/24/2025 Refill [facility] [address] [place] [address] Rafiq Grace MD Mild intermittent asthma, unspecified whether complicated 01/22/2025 Patient Outreach [address] [phone] Rafiq Grace MD Care Coordination ([facility] telephone call outreach) 01/22/2025 Telephone [facility] [address] [place] [phone] Rafiq Grace MD Care Management ([facility]- chart review) 01/20/2025 Telephone [facility] [address] [facility] [place] [address] Rafiq Grace MD FMLA (I called the patient, regarding a FMLA application from [employer]. I informed him that it has been faxed 3 times, and it is not going through. 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 ) 01/05/2025 Refill [facility] [address] [facility] [place], [place] [phone] Rafiq Grace MD Chronic low back pain, unspecified back pain laterality, unspecified whether sciatica present 12/31/2024 Refill [facility] [address] [facility], [place] [phone] Latosha Car MD Mild intermittent asthma, unspecified whether complicated 12/25/2024 Orders Only [facility] External Provider, [facility] from Last 3 Months Immunizations Name Administration Dates Next Due HepB-CpG 05/15/2023,04/11/2023 Influenza injectable quadriv alent IIV4 with preservative 11/14/2019,08/28/2016 Influenza injectable quadriv alent preservative free 09/05/2023,08/18/2022,09/03/2017 Influenza, IIV3, injectable 09/10/2015,1 ,08/12/2013,08/20,11/02/2011,04/09/2010,09/07/2008 Influenza, seasonal, injecta ble, preservative free 08/11/2024 Novel [id number], preservative-free 01/26/2010 Pneumococcal Conjugate PCV 20 04/11/2023 [...] Description 05/13/2025 11:30 AM EDT Clinical Support [facility] [address] [place] [address] Krysta Huston, RN Health Maintenance Due Date [...] 10:10 AM EDT) Triglycerides 97 <150 mg/dL [facility] Comment:Desirable Triglyceri de: less than 150 mg/dLBorderline High Triglyceride 150-199 mg/dLHigh Triglyceride: 200-499 mg/dLVery High Triglyceride: greater than or equal to 5OO mg/dL Cholesterol 129 <200 mg/dL [facility] Comment:Desirable Cholestero l: less than 200 mg/dLBorderline High Cholesterol: 200-239 mg/dLHigh Cholesterol: greater than 239 mg/dL LDL Cholesterol Calculated 73 <100 mg/dL [facility] Comment:Desirable LDL: less than 100 mg/dLNear Optimal/Above Optimal LDL: 110- 129 mg/dLBorderline High LDL: 130-159 mg/dLHigh LDL: 160-189 mg/dLVery High LDL: greater than or equal to 190 mg/dL HDL Cholesterol 37(L) >40 mg/dL [facility] Comment:Desirable HDL: great er than 40 mg/dL Note: This HDL assay may give artificially low results in patients with liver disease. 02/13/2025 10:1 0 AM EDT 02/13/2025 10:10 AM EDT us Generic External Data Provider LAB BLOOD ORDERAB LES Final Result [facility] [address] [place] [phone] * POCT FRANCI-14 Urine Drug Screen (02/11/2025 11:36 AM EDT) Oxycodone Screen, Urine Positive Urine Urine specimen obtained by clean catch procedure / Unknown 02/11/2025 11:36 AM EDT Krysta Moon RN - 02/11/2025 11:36 AM EDT UTOX cup Lot#[id number] Exp. 07/15/26 Internal Pass Control us Rafiq Name MD POINT OF CARE TEST ENTER/EDIT OR DERABLES Final Result * XR Chest 2 Views (02/03/2025 10:42 AM EDT) Anatomical Region Laterality Modality Chest Radiographic Nova ging 02/03/2025 10:4 2 AM EDT Narrative 02/03/2025 11:00 AM EDT ? [facility] ?[address] ?[place] [address] ?XRay Report ? Signed ? Patient: Deidre Colon,Trenton ?MR#: M ?? [id number] ? : 1965 ?Acct:[id number] ? Age/Sex: 59 / M ?ADM Date: 02/03/25 ? Loc: HO.XRAY ? Attending Dr: Lisa Middleton RIGGING LOFT MECHANIC ? Ordering Physician: Lisa Middleton NP ?? Date of Service: 02/03/25 ?? Procedure(s): XR chest 2V ?? Accession Number(s): [id number] ? cc: Name,Rafiq JENKINS; Lisa Middleton NP [...] DD/ 1042 ? TD/TT: 02/03/25 1053 ? Construction Sales Representative: ? Procedure Note Donhajater, Image - 02/03/[address] [address] XRay Report Signed Patient: Latrice BejaranoR#: M [id number] : 1965Acct:[id number] Age/Sex: 59 / MADM Date: 02/03/25 Loc: MUSA Attending Dr: Lisa Middleton NP Ordering Physician: Lisa Middleton NP Date of Service: 02/03/25 Procedure(s): XR chest 2V Accession Number(s): [id number] cc: Rafiq Grace MD; Lisa Middleton NP [...] 02/03/25 1057 DD/ 1042 TD/TT: 02/03/25 1053 Construction Sales Representative: [facility] External Provider IMG XR PROCEDURES Final [...] Final Resul t [facility] [address] [place] [address] [phone] * (ABNORMAL) Comprehensive Metabolic Panel (02/02/2025 [...] Kidney Disea se: Estimated GFR < 60 mL/min/1.43z8Pmydck Kidney Disease: Estimated GFR < 15 mL/min/1.73m2 [...] Final Resul t [facility] [address] [facility] [place] [address] [phone] * MR Knee w/o Contrast Left (12/25/2024 7:05 PM EST) Anatomical Region Laterality Modality Magnetic Resonan ce 12/25/2024 7:05 PM EST Narrative 12/26/2024 8:17 AM EST ? [facility] ?[address] ?[place] [address] ? Magnetic Resonance Report ? Signed ? Patient: Deidre Colon,Trenton ?MR#: M ?? [id number] ? : 1965 ?Acct:[id number] ? Age/Sex: 59 / M ?ADM Date: 12/25/24 ? Loc: HO.MRI ? Attending Dr: Kristan PETTY ? Ordering Physician: Kristan Oconnell ?? Date of Service: 12/25/24 ?? Procedure(s): MR knee LT wo con ?? Accession Number(s): [id number] ? cc: Kristan Oconnell; Name,Rafiq JENKINS ? [...] ? DD/ 04 ? TD/TT: 12/25/241924 ? Construction Sales Representative: ? Procedure Note Halima Shoemaker - 12/26/[address] [address] Magnetic Resonance Report Signed Patient: Erick Bejarano#: M [id number] : 1965Acct:[id number] Age/Sex: 59 / MADM Date: 12/25/24 Loc: HO.MRI Attending Dr: Kristan PETTY Ordering Physician: Kristan Oconnell Date of Service: 12/25/24 Procedure(s): MR knee LT wo con Accession Number(s): [id number] cc: Kristan Oconnell; Name,Rafiq JENKINS EXAMINATION: MRI [...] MD Signed By: <Electronically signed by Nicolas aGvin MD in OV> 12/26/2414 DD/ 04 TD/TT: 12/25/241924 Construction Sales Representative: [facility] External Provider IMG MRI PROCEDURES Final Result * Hepatitis C Ab (02/06/2024 12:22 PM EDT) Hepatitis C Antibody Nonreactive Nonreactive [facility] Comment:Antibodies to HCV no t detected; does not exclude early acuteHCV infection. Blood Venous blood specimen / Unknown 02/06/2024 12:22 PM EDT 02/06/2024 1:11 PM EDT Rafiq Grace MD LAB BLOOD ORDERABLES Final Resul t [facility] [address] [place] [phone] * POCT HGB A1C (12/03/2023 4:16 PM EST) Pathologist [facility] Hemoglobin A1C 5.6 4.0 - 6.0 % Other 12/03/2023 4:16 PM EST Rafiq Grace MD POINT OF CARE TEST ENTER/EDIT OR DERABLES Final Result * (ABNORMAL) Lung Cancer Screning (07/03/2023) Pathologist [facility] Lung CT LUNGRADS 0(A) LUNGRADS 1, LUNGRADS 2 Anatomical Region Laterality Modality Other Result [facility] Lisa Middleton HEALTH MAINTENANCE Final Resul t * Colonoscopy (12/24/2020 12:59 PM EST) Pathologist [facility] Colonoscopy Normal Normal Narrative Danielle Orellana - 12/24/2020 12:59 PM EST Recommended 5 year follow up Historical Provider HEALTH MAINTENANCE Final Result from Last 3 Months or Most Recently Relevant to Health Maintenance Insurance [facility] C3 DENTAL-[facility] MEDICAID STAND ADULT DENTAL - HSN FULL (MEDICAID) DENTAL - AETNA DENTAL Care Teams Maple Products Maker Relationship Specialty Start Date End Date Name, MD Rafiq [address] [place] [address] PCP - General Family Medicine 12/16/15 Jairon Rose, LUCAS [address] [place] [address] Casing Wringer OperatorHydrogen Cell Tender 02/05/25
--- OUTSIDE RECORDS SUMMARY | 2025-03-24 08:02 | XMS_ITS | Encounter Summary ---
Author Organization [facility] Address [address] [facility] 7t [place] [address] Care Team Providers Care Marine Surveyor Name Role Phone Name, Rafiq JENKINS Primary Care Provider [phone] Jairon Rose RN Unavailable [phone] Reason for Visit * Reason Comments Med Refill Encounter Details Date Type Department Care Team ([facility] st Contact Info) Description 06/03/2023 Refill [facility] [address] [place] [address] Sabine Boyd MD [address] [place] [address] Tobacco use disorder, continuous Social History Tobacco [...] Description 05/13/2025 11:30 AM EDT Clinical Support [facility] [address] [place] [address] Krysta Huston, LUCAS documented as of this encounter Visit Diagnoses Diagnosis Tobacco use disorder, continuous Tobacco use disorder documented in this encounter Care Teams Marine Surveyor Relationship Specialty Start Date End Date Name, MD Rafiq [address] [place] [address] PCP - General Family Medicine 12/16/15 Jairon Rose RN [address] [place] [address] President Mortgage CompanyMetal Off Bearer 02/05/25 documented as of this encounter
--- OUTSIDE RECORDS SUMMARY | 2025-03-24 08:02 | XMS_ITS | Clinical Summary ---
Author Organization [employer] [facility] Address [address] [place] [address] Care Team Providers Care Coach Tour Driver Name Role Phone Name, Rafiq JENKINS Primary Care Provider [phone] Surgical History Surgery Date Site/Laterality Comments OTHER SURGICAL HISTORY PROCEDURE: ---- OTHER ----; COMMENT: cardiac cath ESOPHAGOGASTRODUODENOSCOPY 03/28/10 PROCEDURE: MI ESOPHAGOGASTRODUODENOSCOPY TRANSORAL DIAGNOSTIC; COMMENT: normal TONSILLECTOMY PROCEDURE: [...] age to complete this topic Care Teams Coach Tour Driver Relationship Specialty Start Date End Date Name, MD Rafiq [address] [place], [place] PCP - General Internal Medicine 07/30/08
--- OUTSIDE RECORDS SUMMARY | 2025-03-24 08:02 | XMS_ITS | Encounter Summary ---
Author Organization [facility] Address [address] [place] [address] 7t [place] [address] Care Team Providers Care Boiler Plant Operator Name Role Phone Name, Rafiq JENKINS Primary Care Provider [phone] Jairon Rose RN Unavailable [phone] Reason for Visit * Reason Comments Med Refill Encounter Details Date Type Department Care Team (Late Contact Info) Description 03/13/2023 Refill [facility] [address] [place] [address] Sabine Boyd MD [address] [place] [address] Social History Tobacco Use Types Packs/Day Years [...] Clinical Support [facility] [address] [place] [address] Krysta Huston, LUCAS documented as of this encounter Visit Diagnoses Not on filedocumented in this encounter Care Teams Boiler Plant Operator Relationship Specialty Start Date End Date Name, MD Rafiq [address] [place] [address] PCP - General Family Medicine 12/16/15 Jairon Rose, LUACS [address] [place] [address] Education InstructorFurniture Restorer 02/05/25 documented as of this encounter
--- OUTSIDE RECORDS SUMMARY | 2025-03-24 08:02 | XMS_ITS | Encounter Summary ---
Author Organization [employer] [facility] Address [address] [place] [address] 7t [place] [address] Care Team Providers Care Office Support Name Role Phone Name, Rafiq JENKINS Primary Care Provider Jairon Rose RN Unavailable [phone] Encounter Details Date Type Department Care Team ([facility] Contact Info) Description 12/29/[address] [facility] [address] [place] [address] Dario Lynch DDS [address] [place] [address] Social History Tobacco Use Types Packs/Day Years [...] Upcoming Encounters Date Type Department Care Team ([facility] Contact Info) Description 05/13/2025 11:30 AM EDT Clinical Support [facility] [address] [place] [address] Betzaida, Krysta, RN documented as of this encounter Visit Diagnoses Not on filedocumented in this encounter Care Teams Office Support Relationship Specialty Start Date End Date Name, MD Rafiq [address] [place] [address] PCP - General Family Medicine 12/16/15 Jairon Rose RN [address] [place] [address] Air Brake MechanicCurriculum Writer 02/05/25 documented as of this encounter
--- OUTSIDE RECORDS SUMMARY | 2025-03-24 08:02 | XMS_ITS | Encounter Summary ---
Author Organization [employer] Address [address] [facility] 7t [place] [address] Care Team Providers Care Tube Roller Name Role Phone Name, Rafiq JENKINS Primary Care Provider [phone] Jairon Rose RN Unavailable [phone] Reason for Visit * Reason Onset Date Comments Med Refill 06/12/2024 Encounter Details Date Type Department Care Team ([facility] st Contact Info) Description 06/12/2024 Telephone [facility] [address] [place], [place] [phone] Name, MD Rafiq [address] [place] [address] Med Refill Social History Tobacco Use Types [...] 5-325 MG tablet To be sent to: [id number] [facility]Summer [facility] documented in this encounter Plan of Treatment Upcoming Encounters Date Type Department Care Team (Late st Contact Info) Description 05/13/2025 11:30 AM EDT Clinical Support [facility] [address] [place] [phone] Krysta Huston RN documented as of this encounter Visit Diagnoses Not on filedocumented in this encounter Additional Health Concerns Assessment Noted Time PHQ-9 Depression Total Score: 0 02/05/20 24 2:30 PM EDT documented as of this encounter Care Teams Tube Roller Relationship Specialty Start Date End Date Name, MD Rafiq [address] [place] [address] PCP - General Family Medicine 12/16/15 Jairon Rose, LUCAS [address] [place] [address] Engineering TechWeb Search Evaluator 02/05/25 documented as of this encounter
--- NOTE | 2025-03-24 08:03 | CA_ITS ---
Transthoracic Echocardiogram Patient (Last, First, Middle): Trenton Bejarano, Gender: Male Date of : 1965 Age: 59 Procedure Date: 03/24/2025 Procedure Type: Transthoracic Echocardiogram Location: OP Height: 160.02 cm Weight: 99.79 kg BSA: 2.01 m2 Heart Rate: bpm BP: 124 / 80 mmHg Person Investigator: Referring MD: Robbie Avery [place] ENCASER Symptoms: R06.00 - Dyspnea, unspecified Study Quality: Adequate ECG Rhythm: Sinus Conclusions: - The left ventricular systolic function is normal. The calculated ejection fraction is 65% by biplane method. - At least moderate concentric left ventricular hypertrophy. - No obvious valvular pathology seen on this study. Findings Left Ventricle Normal left ventricular cavity size. The left ventricular systolic function is normal. The calculated ejection fraction is 65% by biplane method. There is no evidence of regional wall motion abnormalities. Diastolic function is normal for age. At least moderate concentric left ventricular hypertrophy. Right Ventricle Normal right ventricular cavity size and systolic function. Atria Both atria are normal in size. Aortic Valve There is a normal trileaflet aortic valve. There is no aortic valve stenosis. There is no aortic valve regurgitation. Mitral Valve The mitral valve appears normal. There is trace mitral valve regurgitation. There is no mitral valve stenosis. Pulmonic Valve The pulmonic valve is likely normal. Tricuspid Valve There is trace tricuspid valve regurgitation. There is no evidence of pulmonary hypertension. Great Vessels The asc aorta is normal in size. Venous The inferior vena cava is normal in size and collapses greater than 50% with inspiration. Pericardium/Pleural There is no evidence of pericardial effusion. Prior Study Comparison No prior study available for comparison. Recommendations, Care & Conclusions No obvious valvular pathology seen on this study. Measurements 2D Linear Measurements IVSd: 1.50 0.6-0.9/0.6-1.0 cm LVIDd: 4.48 3.9-5.3/4.2-5.9 cm LVIDd Index: 2.23 2.4-3.2/2.2-3.1 cm/m2 LVIDs: 2.69 2.0-3.6 cm LVPWd: 1.52 0.7-1.1 cm Ao Root: 3.80 2.1-3.5 cm LA Diam: 3.50 2.7-3.8/3.0-4.0 cm LAIDs Index: 1.74 1.5-2.3 cm/m2 LV Mass: 345.24 67-162/88-224 g LV Mass Index: 171.76 43-95/49-115 g/m2 LVOT Diam: 2.40 3.0+(-)1.3 cm 2D Systolic Function EF 4C: 70.10 >55% EF 2C: 61.80 >55% EF BiP: 65.20 >55% Mitral Valve MV Pk E: 0.39 MV PK A: 0.65 MV Decel Time: 276.00 E/A: 0.60 E'Lateral: 6.74 E'Medial: 4.13 E/E' Med: 9.40 E/E' Lat: 5.80 PHT: 81.00 MVA PHT: 2.72 Decel [place]: 1.41 Aortic Valve AoV Pk Rj: 1.45 AoV Mn Rj: 0.97 AoV VTI: 0.35 AoV Pk Grad: 8.00 Aov Mn Grad: 4.00 GIOVANNY Cont.VTI: 3.21 LVOT LVOT Pk Rj: 1.17 LVOT Mn Rj: 0.78 LVOT VTI: 0.25 LVOT Pk Grad: 5.00 LVOT Mn Grad: 3.00 LVOT Diam: 2.40 LVOT Area: 4.52 Diastolic Function MV Pk E: 0.39 MV Pk A: 0.65 E/A: 0.60 E'Medial: 4.13 E/E' Med: 9.40 E' Laterial: 6.74 E/E' Lat: 5.80 Right Ventricle TAPSE (mm): 23.00 TVS' Rj: 13.00 Tricuspid Valve TR Pk Rj: 2.32 TR Pk Grad: 22.00 RA Press: 3.00 RVSP: 25.00 Great Vessels Aorta Ao Root-2D: 3.80 2.0-3.7 cm Ao Asc: 3.50 2.1-3.4 cm Pulmonary Valve PV Pk Rj: 0.95 Peak PV Grad: 4.00 Updated in Other Vendor System with Status of Final Tutu Alves MD electronically signed on 03/24/2025 12:35:05 PM with status of Final
== END ==
LOC: HO.CARD 07:57
PROVIDERS: PCP Internal Medicine Geriatric Medicine
DX: R06.00 Dyspnea, unspecified (principal)
CPT/HCPCS: 93306

== ENCOUNTER → 2025-03-24 08:03 | Outpatient (BNV) | payer MEDICAID, SELFPAY | PROVIDERS: PCP Internal Medicine Geriatric Medicine; Visit Provider Internal Medicine | DX: I34.0 Nonrheumatic mitral (valve) insufficiency (principal); I42.2 Other hypertrophic cardiomyopathy; I36.1 Nonrheumatic tricuspid (valve) insufficiency | CPT/HCPCS: 93306 ==

== ENCOUNTER → 2025-05-19 09:58 | Outpatient (REF) | payer MEDICAID, SELFPAY ==
--- NOTE | ~2025-05-19 | NM_ITS ---
Lexiscan Myocardial perfusion study Indication: Chest pain, shortness of breath Technique: The patient was brought in for a Lexiscan perfusion study on 05/19/2025 and was injected 0.4 mg of Lexiscan intravenously. Within a minute of this injection 35 mCi of sestamibi was given intravenously. Images were obtained using the SPECT gamma camera interlaced with the gating device. Images were obtained in supine position. Resting perfusion study was performed on 05/21/2025. Patient was administered 35 mCi of sestamibi intravenously at rest. Images were then obtained in supine position. Total DLP 107 mGy-cm. Images were processed with the software and compared side to side in short axis, horizontal long axis and vertical long axis views. Findings: Raw aquisition reviewed. The stress perfusion study showed diminished tracer uptake along the inferior wall. There is improvement with CT attenuation correction suggestive of diaphragmatic attenuation artifact. The gated study shows normal LV systolic function with calculated LVEF of 63%. LV cavity is normal in size. The gated study shows normal wall thickening and contraction of segments. Resting study shows diminished tracer uptake along the inferior wall. There is improvement with CT attenuation correction suggestive of diaphragmatic attenuation artifact. Gating at rest reveals normal wall motion with ejection fraction at 68%. The findings are consistent with fixed inferior perfusion defect congestive of diaphragmatic attenuation artifact. NM/NM cardiolite stress test Impression: 1. Myocardial perfusion imaging study shows normal myocardial perfusion. 2. Gated LVEF is 63% during stress and 68% during rest. 3. Transient ischemic dilatation not present. EKG component of the test reported separately. Electronically signed by: Tutu Alves MD 05/24/2025 12:23 PM EDT
--- NOTE | 2025-05-19 10:01 | CA_ITS ---
Acquisition Time: 2025-05-19 10:01:24 Total Exercise Time: 00:02:00 Test Indications: CP,Dyspnea Medications: SEE H&P Protocol: LEXISCAN Max HR: 80 BPM 52% of Pred: 153 BPM Max BP: 116/72 mmHG Max Work Load: 1.0 METS Pharmacoloigcal stress test with Lexiscan while pt swings his legs in chair, with reports of SOB, with isolated PVCs, with normotensive response to exercise. Nondiagnostic EKG for ischemia. In recovery, pt's breathing returned to baseline. Nuclear images pending. Test reviewed with Dr. Alves. Referred By: Robbie Avery Electronically Signed By: Robbie Avery
--- OUTSIDE RECORDS SUMMARY | 2025-05-19 10:58 | XMS_ITS | Encounter Summary ---
Author Organization [employer] Address [address] [place] [address] Care Team Providers Care Catalyst Manufacturing Operator Name Role Phone Name, Rafiq JENKINS Primary Care Provider [phone] Jairon Rose RN Unavailable [phone] Encounter Details Date Type Department Care Team ([facility] Contact Info) Description 04/27/2023 Abstract [facility] [address], [place] [id number] Name, MD Rafiq [address] [place] [address] Social History Tobacco Use Types Packs/Day Years [...] Upcoming Encounters Date Type Department Care Team ([facility] Contact Info) Description 08/04/2025 3:15 PM EDT Office Visit [address] [address] Name, [place] [address] 08/13/2025 11:30 AM EDT Clinical Support [address] [address] Krysta Huston, LUCAS documented as of this encounter Procedures Procedure [...] on filedocumented in this encounter Care Teams Catalyst Manufacturing Operator Relationship Specialty Start Date End Date Name, MD Rafiq [address] [place] [id number] PCP - General Family Medicine 12/16/15 Jairon Rose, RN [address] [place] [address] Patient Safety AttendantSiebel Administrator 02/05/25 documented as of this encounter
== END ==
LOC: HO.CARD 09:58
PROVIDERS: PCP Internal Medicine Geriatric Medicine
DX: R07.9 Chest pain, unspecified (principal)
CPT/HCPCS: 78452; 93017; A9500; J0280; J2785

== ENCOUNTER → 2025-05-19 10:01 | Outpatient (BNV) | payer MEDICAID, SELFPAY | PROVIDERS: PCP Internal Medicine Geriatric Medicine | DX: R06.02 Shortness of breath (principal); I49.3 Ventricular premature depolarization | CPT/HCPCS: 78452; 93016; 93018 ==

== ENCOUNTER 2025-05-26 14:55 | Outpatient (AMB) | payer MEDICAID, SELFPAY ==
--- NOTE | 2025-05-26 15:13 | MHC.OFFVIS ---
Vital Signs 05/26/25 15:14 Height 5 ft 3 in Weight 227 lb 15.327 oz BMI 40.4 BP 118/72 Blood Pressure Location Rt brachial Position Sitting Pulse 64 Pulse Source Pulse Oximeter Intake Visit Reasons: f/up christiano echo Hospice Manager Required: No Allergies naproxen Adverse Reaction (Intermediate, Verified 05/26/25 15:16) kidney problems, hematuria ibuprofen Adverse Reaction (Verified 05/26/25 15:16) hematuria Medication List - Last Reconciled 05/26/25 by Robbie Avery NP albuterol sulfate 90 mcg/actuation 2 puffs inhalation Q4-6H PRN amlodipine 2.5 mg PO DAILY arm brace As directed aspirin 81 mg PO DAILY atorvastatin 80 mg PO DAILY baclofen 10 mg PO BID cefpodoxime 200 mg PO BID docusate sodium 100 mg PO QAM doxycycline hyclate 100 mg PO BID ergocalciferol (vitamin D2) (Vitamin D2) 1,250 mcg PO QWEEK ezetimibe 10 mg PO QAM fluticasone furoate-vilanterol 200-25 mcg/dose (Breo Ellipta) 1 inh inhalation DAILY fluticasone propionate 50 mcg/actuation 2 sprays intranasal DAILY gabapentin 300 mg PO BID ipratropium bromide 2 sprays intranasal BID isosorbide mononitrate ER 60 mg PO DAILY metoprolol tartrate 100 mg PO BID 90 days multivitamin with folic acid 400 mcg (Daily-Maddi (with folic acid)) 1 tab PO QAM naloxone 4 mg/actuation 0 sprays intranasal nitroglycerin 0.4 mg sublingual Q5M PRN oxycodone-acetaminophen 5-325 mg 1 tab PO Q6H PRN pantoprazole 20 mg PO DAILY simethicone (Gas Relief (simethicone)) 125 mg PO TID-QID PRN tamsulosin 0.4 mg PO BEDTIME tiotropium bromide 2.5 mcg/actuation (Spiriva Respimat) 2 puffs inhalation DAILY HPI Comments Details: This is a 59-year-old male patient coming in for a follow-up visit. Patient with a history of coronary artery disease with previous DS paced in LCX and RCA in 2009, 2015, in 2020 and to the LAD in 2021. Patient also has history of hypertension, hyperlipidemia, obesity, and COPD. 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 Patient had established cardiovascular care during that visit and since then has seen them twice to discuss surgical plans. Patient recently underwent a myocardial perfusion study for reports of intermittent chest pain. Today, patient reports the unchanged intermittent chest pain both with exertion and at rest describes as a stabbing pain lasting couple of sec and resolves with rest. Patient is otherwise denying any shortness of breath, palpitations, dizziness, fatigue, orthopnea, PND, leg edema, presyncope, or syncope with this. Patient reports compliance with all his medications except, patient states that he has been having hard time getting his Praluent injections from the pharmacy and has not taken it for the last 1 month. [facility] Medical History (Updated 05/26/25 @ 16:54 by Robbie Avery NP) Hemorrhoids Acid reflux Fibromyalgia Herniated lumbar intervertebral disc Herniated cervical disc Hx of osteoarthritis Bilateral carpal tunnel syndrome Hx of renal calculi Hx of migraine headaches Anxiety and depression Sleep apnea Smoker Asthma Myocardial infarction Elevated cholesterol CAD (coronary artery disease) HTN (hypertension) Surgical History Status post excision of lipoma Hx of colonoscopy History of cardiac cath History of esophagogastroduodenoscopy (EGD) Hx of tonsillectomy Hx of umbilical hernia repair H/O lithotripsy History of PTCA Family History Mother Lung cancer Father Prostate cancer Social History Household Members: Significant Other and Family Housing: House Are you a primary chiropractic care to a significant other at home: No Do you presently have visiting nurse or other home services: No 75 years or older and lives alone: No Alcohol intake: current Alcohol intake frequency: holidays/special occasions only Patient Tobacco Use Status: Former Tobacco user Tobacco use type: Cigarette Cigarette Packs Per Day: 0.5 Cigarettes Per Day: 10 Years Smoked: 40/ Quit 12/31/24 Current occupational status: employed 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 Review of Systems ENT Reports dizziness Card Denies chest pain, Denies chest pain at rest, Denies chest pain with activity, Denies rapid heart rate, Denies pedal edema, Denies edema, Denies leg edema, Denies lightheadedness, Denies palpitations, Denies dyspnea, Denies dyspnea on exertion and Denies orthopnea Resp Denies cough, Denies dyspnea and Denies dyspnea on exertion GI Denies hematochezia and Denies change in stool character Musc Denies abnormal gait, Reports limited range of motion, Reports muscle cramps, Denies muscle weakness, Denies numbness, Denies radiating pain into limb, Denies stiffness and Denies tingling Neuro Denies abnormal gait, Reports dizziness, Denies numbness and Denies tingling Endo Denies palpitations Physical Exam Vital Signs: Last Vital Signs Pulse 64 05/26/25 15:14 BP 118/72 05/26/25 15:14 BMI result Body Mass Index 40.4 Assessment & Plan Assessment & Plan (1) Chest pain: Code(s): R07.9 - Chest pain, unspecified Category: Medical (2) Atherosclerotic ulcer of aorta: Code(s): I70.0 - Atherosclerosis of aorta; I71.9 - Aortic aneurysm of unspecified site, without rupture Category: Medical (3) CAD (coronary artery disease): Code(s): I25.10 - Atherosclerotic heart disease of [place] coronary artery without angina pectoris Category: Medical (4) HTN (hypertension): Code(s): I10 - Essential (primary) hypertension Category: Medical (5) Dyslipidemia: Code(s): E78.5 - Hyperlipidemia, unspecified Category: Medical Plan 01/22/2025-patient underwent chest CTA at [facility] show acute penetrating atherosclerotic ulcer or a saccular aneurysm with mural thrombus. Repeat chest CT in January showed stable findings of the atherosclerotic ulcer. Patient has since seen his [facility] cardiovascular twice and has had ongoing plans for surgical interventions. Due to his reports of chest pain and associated shortness of breath previously, and his multiple risk factors, patient underwent a myocardial perfusion study on 05/19/2025, which was normal. 03/24/2025-patient also underwent an echo study which showed a normal LV systolic function with an ejection fraction at 65%, with moderate concentric LVH. Patient has a an upcoming appointment with the [facility] cardiovascular for further discussions of what appropriate surgical intervention for the repair of this ulcer. Continue current regimen of amlodipine, isosorbide, and metoprolol therapy. Continue high-dose statin therapy, Zetia, and we will try to get patient back on Praluent therapy. On the present therapy, patient's LDL improved significantly. We will repeat a lipid profile with a goal of LDL less than 70. Advised a heart healthy diet, regular exercise, weight loss, adherence to CPAP therapy, medication compliance, and aggressive management of vascular risk factors. Follow-up in 4 months. In the interim, patient will call us with any concerns or change in symptoms. Advised patient to seek ER care in case of exertional chest pain not resolved with rest. This note was generated using voice recognition software. While every effort has been made to ensure accuracy and proper medicaid analyst, there may be occasional errors that could affect the content or meaning of the described symptoms. Orders: Orders Lipid Panel Today E78.5 - Hyperlipidemia, unspecified, I25.10 - Atherosclerotic heart disease of [place] coronary artery without angina pectoris Medications: New alirocumab 75 mg subcut Q2W 2 mL 5RF Refilled metoprolol tartrate please call and schedule cardiology appointment 100 mg PO BID 180 tabs 0RF 90 days isosorbide mononitrate ER 60 mg PO DAILY 90 tabs 3RF Coding Level of Care Code Est Pt Level 4 (40621) Complex EM visit Add On G2211 Diagnoses Chest pain R07.9 Atherosclerotic ulcer of aorta I70.0; I71.9 CAD (coronary artery disease) I25.10 HTN (hypertension) I10 Dyslipidemia E78.5 Time Spent (min) 32 Comment Time spent in reviewing the chart, test results, assessment, counseling and documentation.
[2025-05-26 15:14] VITALS: BP 118/72; PULSE 64; BMI 40.4
--- OUTSIDE RECORDS SUMMARY | 2025-05-26 15:51 | XMS_ITS | Encounter Summary ---
Author Organization [employer] Address [address] [place] [address] Care Team Providers Care Sciences Dean Name Role Phone Name, Rafiq JENKINS Primary Care Provider [phone] Jairon Rose RN Unavailable [phone] Encounter Details Date Type Department Care Team (Late st Contact Info) Description 05/19/2025 Orders Only [facility] External Provider, [facility] Social History Tobacco Use Types Packs/Day [...] Care Team (Late st Contact Info) Description 06/02/2025 11:00 AM EDT Office Visit [address] [address] 08/04/2025 3:15 PM EDT Office Visit [address] [address] Name, MD Rafiq [address] [place] [address] 08/13/2025 11:30 AM EDT Clinical Support [address] [address] Krysta Huston RN documented as of this encounter Procedures Procedure Name Priority Date/Time Associated Diagnosis Comments STRESS TEST WITH MYOCARDIAL PERFUSION Routine 05/19/2025 10:13 AM EDT documented in this encounter Results * Stress test with myocardial perfusion (05/19/2025 10:13 AM EDT) 05/19/2025 10:1 3 AM EDT Narrative [facility] - 05/24/2025 12:26 PM EDT [address] [address] Nuclear Medicine Report Signed Patient: Trenton Bejarano MR#: [id number] : 1965 Acct:[id number] Age/Sex: 59 / M ADM Date: 05/19/25 Loc: HO.CARD Attending Dr: Robbie Avery NP Ordering Physician: Robbie Avery NP Date of Service: 05/19/25 Procedure(s): NM cardiolite stress test Accession Number(s): [id number] cc: Name,Rafiq JENKINS; Robbie Avery NP Lexiscan Myocardial perfusion study Indication: Chest pain, shortness of breath Technique: The patient was brought in for a Lexiscan perfusion study on 05/19/2025 and was injected 0.4 mg of Lexiscan intravenously. Within a minute of this injection 35 mCi of sestamibi was given intravenously. Images were obtained using the SPECT gamma camera interlaced with the gating device. Images were obtained in supine position. Resting perfusion study was performed on 05/21/2025. Patient was administered 35 mCi of sestamibi intravenously at rest. Images were then obtained in supine position. Total DLP 107 mGy-cm. Images were processed with the software and compared side to side in short axis, horizontal long axis and vertical long axis views. Findings: Raw aquisition reviewed. The stress perfusion study showed diminished tracer uptake along the inferior wall. There is improvement with CT attenuation correction suggestive of diaphragmatic attenuation artifact. The gated study shows normal LV systolic function with calculated LVEF of 63%. LV cavity is normal in size. The gated study shows normal wall thickening and contraction of segments. Resting study shows diminished tracer uptake along the inferior wall. There is improvement with CT attenuation correction suggestive of diaphragmatic attenuation artifact. Gating at rest reveals normal wall motion with ejection fraction at 68%. The findings are consistent with fixed inferior perfusion defect congestive of diaphragmatic attenuation artifact. MI/MI cardiolite stress test Impression: 1. Myocardial perfusion imaging study shows normal myocardial perfusion. 2. Gated LVEF is 63% during stress and 68% during rest. 3. Transient ischemic dilatation not present. EKG component of the test reported separately. Electronically signed by: Tutu Alves MD 05/24/2025 12:23 PM EDT Dictated By: Tutu Alves MD Signed By: <Electronically signed by Tutu Alves MD in OV> 05/24/25 1223 DD/ 1013 TD/TT: 05/21/25 1405 Waiter/Waitress Take Out: Procedure Note Donotuseinterpreter, Image - 05/24/[address] [address] Nuclear Medicine Report Signed Patient: Erick Bejarano#: M [id number] : 1965Acct:[id number] Age/Sex: 59 / MADM Date: 05/19/25 Loc: .[facility] Attending Dr: Robbie Avery NP Ordering Physician: Robbie Avery NP Date of Service: 05/19/25 Procedure(s): NM cardiolite stress test Accession Number(s): [id number] cc: Name,Rafiq JENKINS; Robbie Avery NP Lexiscan Myocardial perfusion study Indication: Chest pain, shortness of breath Technique: The patient was brought in for a Lexiscan perfusion study on 05/19/2025 and was injected 0.4 mg of Lexiscan intravenously. Within a minute of this injection 35 mCi of sestamibi was given intravenously. Images were obtained using the SPECT gamma camera interlaced with the gating device. Images were obtained in supine position. Resting perfusion study was performed on 05/21/2025. Patient was administered 35 mCi of sestamibi intravenously at rest. Images were then obtained in supine position. Total DLP 107 mGy-cm. Images were processed with the software and compared side to side in short axis, horizontal long axis and vertical long axis views. Findings: Raw aquisition reviewed. The stress perfusion study showed diminished tracer uptake along the inferior wall. There is improvement with CT attenuation correction suggestive of diaphragmatic attenuation artifact. The gated study shows normal LV systolic function with calculated LVEF of 63%. LV cavity is normal in size. The gated study shows normal wall thickening and contraction of segments. Resting study shows diminished tracer uptake along the inferior wall. There is improvement with CT attenuation correction suggestive of diaphragmatic attenuation artifact. Gating at rest reveals normal wall motion with ejection fraction at 68%. The findings are consistent with fixed inferior perfusion defect congestive of diaphragmatic attenuation artifact. NM/NM cardiolite stress test Impression: 1. Myocardial perfusion imaging study shows normal myocardial perfusion. 2. Gated LVEF is 63% during stress and 68% during rest. 3. Transient ischemic dilatation not present. EKG component of the test reported separately. Electronically signed by: Tutu Alves MD 05/24/2025 12:23 PM EDT RP Workstation: [employer] Dictated By: Tutu Alves MD Signed By: <Electronically signed by Ttuu Alves MD inOV> 05/24/25 1223 DD/ 1013 TD/TT: 05/21/25 1405 Waiter/Waitress Take Out: [facility] External Provider CV STRE SS PROCEDURES Final Result [facility] [address] [place] [address] documented in this encounter Visit Diagnoses Not on filedocumented in this encounter Additional Health Concerns Assessment Noted Time PHQ-9 Depression Total Score: 10 025 11:59 AM EDT documented as of this encounter Care Teams Sciences Dean Relationship Specialty Start Date End Date Name, MD Rafiq [address] [place] [address] PCP - General Family Medicine 12/16/15 Jairon Rose, LUCAS [address] [place] [address] Red LeaderPipe Fittings Molder 02/05/25 05/20/25 documented as of this encounter
--- OUTSIDE RECORDS SUMMARY | 2025-05-26 15:51 | XMS_ITS | Clinical Summary ---
Author Organization [employer] [facility] Address [address] [place] [address] Care Team Providers Care Automatic Steel Tie Adjuster Name Role Phone Name, Rafiq JENKINS Primary Care Provider [phone] Surgical History Surgery Date Site/Laterality Comments OTHER SURGICAL HISTORY PROCEDURE: ---- OTHER ----; COMMENT: cardiac cath ESOPHAGOGASTRODUODENOSCOPY 03/28/10 PROCEDURE: [place] ESOPHAGOGASTRODUODENOSCOPY TRANSORAL DIAGNOSTIC; COMMENT: normal TONSILLECTOMY PROCEDURE: [...] age to complete this topic Care Teams Automatic Steel Tie Adjuster Relationship Specialty Start Date End Date Name, MD Rafiq [address] [place], [place] PCP - General Internal Medicine 07/30/08
== END 2025-05-26 15:53 | disposition home or self-care (01) ==
PROVIDERS: PCP Internal Medicine Geriatric Medicine
DX: R07.9 Chest pain, unspecified (principal); I70.0 Atherosclerosis of aorta; I71.9 Aortic aneurysm of unspecified site, without rupture; I25.10 Atherosclerotic heart disease of native coronary artery without angina pectoris; I10 Essential (primary) hypertension; E78.5 Hyperlipidemia, unspecified
CPT/HCPCS: 99214

== ENCOUNTER → 2025-05-26 14:55 | Outpatient (BNVA) | payer MEDICAID, SELFPAY | PROVIDERS: PCP Internal Medicine Geriatric Medicine | DX: Z71.2 Person consulting for explanation of examination or test findings (principal); E78.5 Hyperlipidemia, unspecified; I10 Essential (primary) hypertension; I25.10 Atherosclerotic heart disease of native coronary artery without angina pectoris; R07.9 Chest pain, unspecified; I71.9 Aortic aneurysm of unspecified site, without rupture | CPT/HCPCS: 99212 ==

== ENCOUNTER 2025-09-14 14:05 | Outpatient (AMB) | payer MEDICAID, SELFPAY ==
[2025-09-14 14:10] VITALS: BP 136/82; PULSE 59; BMI 41.8
--- NOTE | 2025-09-14 14:10 | A.OFFVIS_ITS ---
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: No Allergies naproxen Adverse Reaction (Intermediate, Verified 05/26/25 15:16) kidney problems, hematuria ibuprofen Adverse Reaction (Verified 05/26/25 15:16) hematuria Medication List - Last Reconciled 09/14/25 by Robbie Avery NP albuterol sulfate 90 mcg/actuation (Ventolin HFA) 2 puffs inhalation Q4-6H PRN alirocumab 75 mg subcut Q2W amlodipine 2.5 mg PO DAILY arm brace As directed aspirin 81 mg PO DAILY atorvastatin 80 mg PO DAILY baclofen 10 mg PO BID docusate sodium 100 mg PO QAM ergocalciferol (vitamin D2) (Vitamin D2) 1,250 mcg PO QWEEK ezetimibe 10 mg PO QAM fluticasone furoate-vilanterol 200-25 mcg/dose (Breo Ellipta) 1 inh inhalation DAILY fluticasone propionate 50 mcg/actuation 2 sprays intranasal DAILY gabapentin 300 mg PO BID ipratropium bromide 2 sprays intranasal BID isosorbide mononitrate ER 60 mg PO DAILY metoprolol tartrate 100 mg PO BID 90 days multivitamin with folic acid 400 mcg (Daily-Maddi (with folic acid)) 1 tab PO QAM naloxone 4 mg/actuation 0 sprays intranasal nitroglycerin 0.4 mg sublingual Q5M PRN oxycodone-acetaminophen 5-325 mg 1 tab PO Q6H PRN pantoprazole 40 mg PO QAM simethicone (Gas Relief (simethicone)) 125 mg PO TID-QID PRN tamsulosin 0.4 mg PO BEDTIME tiotropium bromide 2.5 mcg/actuation (Spiriva Respimat) 2 puffs inhalation DAILY HPI Comments Details: This is a 60-year-old male patient coming in for a preop cardiovascular risk stratification for an upcoming repair of the penetrating aortic ulcer. Patient with a history of coronary artery disease with previous stent placed in LCX and RCA in 2009, 2015, 2020, and to LAD in 2021. Patient also with a history of hypertension, hyperlipidemia, obesity, and COPD. Patient had a chest CT done at [facility] when he was therefore a chest pain episode and the imaging showed acute penetrating atherosclerotic ulcer or saccular aneurysm with mural thrombus for which patient was at [facility]. Patient had reported episodes of exertional chest discomfort previously that resolved with rest for which patient underwent a myocardial perfusion study that was negative. Today, patient reports that he has been having intermittent left-sided upper chest discomfort that comes on with positional changes or lifting heavy objects. Patient denies any shortness of breath, palpitations, dizziness, orthopnea, PND, leg edema, presyncope or syncope associated with this. Patient has been seeing vascular surgery at [facility] where they have decided to go in for an elective repair of the penetrating aortic ulcer. Patient is otherwise reporting compliance with all hi s medications and states that he has completely stopped smoking for which he was commended. [facility] Medical History Hemorrhoids Acid reflux Fibromyalgia Herniated lumbar intervertebral disc Herniated cervical disc Hx of osteoarthritis Bilateral carpal tunnel syndrome Hx of renal calculi Hx of migraine headaches Anxiety and depression Sleep apnea Smoker Asthma Myocardial infarction Elevated cholesterol CAD (coronary artery disease) HTN (hypertension) Surgical History Status post excision of lipoma Hx of colonoscopy History of cardiac cath History of esophagogastroduodenoscopy (EGD) Hx of tonsillectomy Hx of umbilical hernia repair H/O lithotripsy History of PTCA Family History Mother Lung cancer Father Prostate cancer Social History Household Members: Significant Other and Family Housing: House Are you a primary plant health care technician to a significant other at home: No Do you presently have visiting nurse or other home services: No 75 years or older and lives alone: No Alcohol intake: current Alcohol intake frequency: holidays/special occasions only Patient Tobacco Use Status: Former Tobacco user Tobacco use type: Cigarette Cigarette Packs Per Day: 0.5 Cigarettes Per Day: 10 Years Smoked: 40/ Quit 12/31/24 Current occupational status: employed 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 Review of Systems Const Denies chills, Denies fatigue, Denies fever(s), Denies frequent falls, Denies weakness, Denies weight gain and Denies weight loss ENT Denies dizziness Card Reports chest pain, Denies leg edema, Denies lightheadedness, Denies palpitations, Denies dyspnea, Denies dyspnea on exertion, Denies orthopnea and Denies other (loss of consciousness) Resp Denies cough, Denies dyspnea and Denies dyspnea on exertion GI Denies hematochezia and Denies change in stool character Musc Denies abnormal gait, Denies muscle weakness, Denies numbness, Denies radiating pain into limb and Denies tingling Neuro Denies abnormal gait, Denies dizziness, Denies frequent falls, Denies numbness, Denies tingling and Denies weakness Endo Denies fatigue and Denies palpitations Physical Exam Vital Signs: Last Vital Signs Pulse 59 09/14/25 14:10 BP 136/82 09/14/25 14:10 BMI result Body Mass Index 41.8 Const General: cooperative, healthy appearing, comfortable and no acute distress Orientation/consciousness: patient oriented x3 HEENT Head: Yes normal to inspection Neck Neck: Yes normal visual inspection, Yes trachea midline and Yes supple Chest Chest palpation & inspection: normal inspection of the chest Resp Effort & Inspection: normal respiratory effort Auscultation: clear to auscultation bilaterally, no crackles, no rales, no rhonchi and no wheezes Cardio Jugular venous distension: no JVD Palpation: normal PMI Rate: regular rate Rhythm: regular rhythm Heart sounds: S1 normal heart sound present, S2 normal heart sound present, no click, no gallops, no murmurs and no rubs Peripheral pulses: Peripheral pulses 2+ throughout GI Inspection: Yes normal to inspection Palpation (GI): Soft to palpation Auscultation: normal bowel sounds Skin General skin exam: no rashes or lesions noted Neuro General: patient oriented x3 Extrem General: Yes normal to inspection, No no pedal edema and No calf tenderness Psych Appearance: grossly normal Mental Status: mental status grossly normal Speech and movement: Normal speech and movement present Office Procedures EKG Details: EKG today showed sinus bradycardia, rate 59 beats per minute, nonspecific T-wave abnormality, [place], [place] [id number], Complete Assessment & Plan Assessment & Plan (1) Preop cardiovascular exam: Code(s): Z01.810 - Encounter for preprocedural cardiovascular examination Category: Medical Plan: 01/22/2025-patient underwent chest CTA at [facility] show acute penetrating atherosclerotic ulcer or a saccular aneurysm with mural thrombus. Repeat chest CT in January showed stable findings of the atherosclerotic ulcer. Patient sees vascular surgery at [facility] and is planning for elective repair of the penetrating aortic ulcer. 03/24/2025-patient also underwent an echo study which showed a normal LV systolic function with an ejection fraction at 65%, with moderate concentric LVH. 05/19/2025-patient underwent a myocardial perfusion study that showed normal perfusion. EKG today is normal. Hence, patient can proceed with upcoming vascular surgery with the consideration that patient is at an intermediate cardiac risk. Case reviewed with Dr. Chavez. (2) Atherosclerotic ulcer of aorta: Code(s): I70.0 - Atherosclerosis of aorta; I71.9 - Aortic aneurysm of unspecified site, without rupture Category: Medical Plan: As above. (3) CAD (coronary artery disease): Code(s): I25.10 - Atherosclerotic heart disease of [place] coronary artery without angina pectoris Category: Medical Plan: History of stent placement in LCX and RCA in 2009, 2015, 2020, and to LAD in 2021. Continue isosorbide, metoprolol, and baby aspirin therapy. Continues to report intermittent left-sided upper chest discomfort mostly with positional changes as well as lifting heavy objects and therefore recommended avoiding lifting. Patient states that he is using lidocaine patches which is helping and advised to continue the same. (4) Dyslipidemia: Code(s): E78.5 - Hyperlipidemia, unspecified Category: Medical Plan: LDL from January significantly improved. Continue with Praluent therapy, high- dose statin and Zetia. Asked patient to complete his labs that was ordered previously. Ideally, LDL goal less than 70. (5) HTN (hypertension): Code(s): I10 - Essential (primary) hypertension Category: Medical Plan: Blood pressure today is well-controlled. Continue current regimen with a blood pressure goal less than 130/80. Advised monitoring blood pressures at home. Advised heart healthy diet, regular exercise, weight loss, adherence to CPAP therapy, med compliance, and aggressive management of vascular risk factors. Follow up in three months. In the interim, patient will call the office with any concerns or change in symptoms. Advised to seek ER care in case of exertional chest pain not resolved with rest. This note was generated using voice recognition software. While every effort has been made to ensure accuracy and proper senior director marketing, there may be occasional errors that could affect the content or meaning of the described symptoms. Orders: Orders AMB EKG-In Office Today Z01.810 - Encounter for preprocedural cardiovascular examination Coding Level of Care Code Est Pt Level 4 (24380) Complex EM visit Add On G2211 Diagnoses Preop cardiovascular exam Z01.810 Atherosclerotic ulcer of aorta I70.0; I71.9 CAD (coronary artery disease) I25.10 Dyslipidemia E78.5 HTN (hypertension) I10 CPT Codes EKG - CPT: 18485-[id number], Complete ([id number]) Time Spent (min) 31 Comment Time spent in reviewing the chart, test results, assessment, counseling and documentation.
== END 2025-09-14 14:43 | disposition home or self-care (01) ==
LOC: HO.HCS 14:06
PROVIDERS: PCP Internal Medicine Geriatric Medicine
DX: Z01.810 Encounter for preprocedural cardiovascular examination (principal); I70.0 Atherosclerosis of aorta; I71.9 Aortic aneurysm of unspecified site, without rupture; I25.10 Atherosclerotic heart disease of native coronary artery without angina pectoris; E78.5 Hyperlipidemia, unspecified; I10 Essential (primary) hypertension
CPT/HCPCS: 93010; 99214

== ENCOUNTER → 2025-09-14 14:05 | Outpatient (BNVA) | payer MEDICAID, SELFPAY | PROVIDERS: PCP Internal Medicine Geriatric Medicine | DX: Z01.810 Encounter for preprocedural cardiovascular examination (principal); I70.0 Atherosclerosis of aorta; I71.9 Aortic aneurysm of unspecified site, without rupture; I25.10 Atherosclerotic heart disease of native coronary artery without angina pectoris; I10 Essential (primary) hypertension; E78.5 Hyperlipidemia, unspecified; Z95.5 Presence of coronary angioplasty implant and graft | CPT/HCPCS: 93005; 99212 ==